=== PATIENT | female | born 1995 | race Caucasian/White ===

== ENCOUNTER 2018-05-05 18:47 | Emergency (ER) | payer OTHER, SELFPAY ==
[2018-05-05 18:48] VITALS: BP 147/94; PULSE 113; RESP 16; TEMP 36.9; O2SAT 100; BMI 31.8
--- NOTE | 2018-05-05 19:01 | ED.DCSUM_ITS ---
- ER Visit Summary Date of Service: 05/05/18 Chief Complaint: Breast pain History of Present Illness: The patient is a 23 F who developed breast pain yesterday. It got worse today. Fever was 100?F today. Hurts to touch. She did notice some redness. No history of mastitis in the past. Still breast- feeding at this time Physical Examination: Vital signs are reviewed. Right breast exam with nursing supervision shows tenderness palpation on the lateral breast with a small area of erythema. There is no abscess noted. No nipple drainage Test Results: None indicated Emergency Department Course and Treatment: Patient appears to have mastitis. I will treat her with Keflex at home. She will use warm compresses and will follow up with her PCP Treatment Plan: [] Disposition: Discharge Impression: mastitis This note was generated with [employer] dictation software. It may contain incorrect words, spelling, and punctuation that were not noted in review of the chart prior to signing ED Disposition - Plan for ED Patient: Chief Complaint: Other, Pain/Inj Referrals: Care Physician,No Primary [Primary Care Provider] -
--- NOTE | 2018-05-05 19:01 | ED.DEP ---
ED Disposition - Plan for ED Patient: Disposition: Home or Assisted Living Chief Complaint: Other, Pain/Inj Instructions: ED Breast Infec Prescriptions: Cephalexin [Keflex] 500 mg PO Q6 #40 cap Referrals: Care Physician,No Primary [Primary Care Provider] -
[2018-05-05] MEDS: Cephalexin 250 MG Capsule 500 MG PO (19:14)
== END 2018-05-05 19:21 | disposition home or self-care (01) ==
LOC: ED 19:17
PROVIDERS: Emergency Provider Emergency Medicine
DX: N61.0 Mastitis without abscess (principal)
CPT/HCPCS: 99283

== ENCOUNTER → 2018-10-17 13:38 | Outpatient (CLI) | payer OTHER, SELFPAY ==
[2018-10-17 15:56] LABS: HIV - WCH Non-Reactive (Nonreactive)
== END ==
PROVIDERS: Referring Provider Internal Medicine Infectious Disease; Visit Provider Internal Medicine Infectious Disease
DX: Z78.9 Other specified health status (principal)
CPT/HCPCS: 36415; 86703

== ENCOUNTER → 2019-02-04 10:57 | Outpatient (CLI) | payer OTHER, SELFPAY ==
[2019-02-04 10:23] VITALS: BMI 31.8
--- NOTE | 2019-02-04 11:22 | US_ITS ---
STUDY: ULTRASOUND OF THE FEMALE PELVIS - COMPLETE REASON FOR EXAM: Female, 23 years old. Endometrial thickness. LMP: January 27, 2019. TECHNIQUE: Transabdominal and Transvaginal TECHNICAL QUALITY: Adequate. COMPARISON: None. FINDINGS: The uterus is retroflexed and is tilted to the right side of the pelvis. The uterus measures 7.3 cm x 5.6 cm x 3.7 cm. Normal uterine cervix. The endometrium measures 8.0 mm in thickness, and is heterogeneous (striated). There is no demonstrated endometrial mass. There is no demonstrated myometrial mass. I.U.D. - The patient does not have an I.U.D. The right ovary is visualized. The right ovary measures 4.2 cm x 2.4 cm x 2.7 cm. A dominant follicle is seen within the ovary measuring 2 cm. There is no visualized right adnexal mass or complex lesion. There is normal arterial and normal venous vascularity. The left ovary is visualized. The left ovary measures 2.6 cm x 2.9 cm x 1.6 cm. Multiple follicles are seen. There is no visualized left adnexal mass or complex lesion. There is normal arterial and normal venous vascularity. There is no fluid in the cul-de-sac. The pre void volume of the bladder was 210 ml. Polycystic ovary disease: No. US/Transvaginal Non- IMPRESSION: Dominant follicle in the right ovary measuring 2 cm. Electronically Signed: Baldemar Braun, at 12:43 EDT , Service support ,
--- NOTE | 2019-02-04 11:22 | US_ITS ---
STUDY: ULTRASOUND OF THE FEMALE PELVIS - COMPLETE REASON FOR EXAM: Female, 23 years old. Endometrial thickness. LMP: January 27, 2019. TECHNIQUE: Transabdominal and Transvaginal TECHNICAL QUALITY: Adequate. COMPARISON: None. FINDINGS: The uterus is retroflexed and is tilted to the right side of the pelvis. The uterus measures 7.3 cm x 5.6 cm x 3.7 cm. Normal uterine cervix. The endometrium measures 8.0 mm in thickness, and is heterogeneous (striated). There is no demonstrated endometrial mass. There is no demonstrated myometrial mass. I.U.D. - The patient does not have an I.U.D. The right ovary is visualized. The right ovary measures 4.2 cm x 2.4 cm x 2.7 cm. A dominant follicle is seen within the ovary measuring 2 cm. There is no visualized right adnexal mass or complex lesion. There is normal arterial and normal venous vascularity. The left ovary is visualized. The left ovary measures 2.6 cm x 2.9 cm x 1.6 cm. Multiple follicles are seen. There is no visualized left adnexal mass or complex lesion. There is normal arterial and normal venous vascularity. There is no fluid in the cul-de-sac. The pre void volume of the bladder was 210 ml. Polycystic ovary disease: No. US/Pelvic (Non ) IMPRESSION: Dominant follicle in the right ovary measuring 2 cm. Electronically Signed: Baldemar Braun, at 12:43 EDT , Service support ,
[2019-02-04 11:42] LABS: Estradiol 231.7 pg/mL
[2019-02-07 16:27] LABS: HPV Reflexed? NOT INDICATED
== END ==
PROVIDERS: Family Provider Nurse Practitioner Primary Care; PCP Nurse Practitioner Primary Care; Referring Provider Nurse Practitioner Women's Health; Visit Provider Nurse Practitioner Women's Health
DX: Z12.4 Encounter for screening for malignant neoplasm of cervix (principal); R93.89 Abnormal findings on diagnostic imaging of other specified body structures; Z31.7 Encounter for procreative management and counseling for gestational carrier
CPT/HCPCS: 36415; 76830; 76856; 82670; 87624; 88175; 93976; G0145

== ENCOUNTER → 2019-02-05 13:26 | Outpatient (CLI) | payer OTHER, SELFPAY ==
[2019-02-04 10:23] VITALS: BMI 31.8
[2019-02-05 14:29] LABS: Progesterone Level 0.23 ng/mL (See Comment)
== END ==
PROVIDERS: Family Provider Nurse Practitioner Primary Care; PCP Nurse Practitioner Primary Care
DX: N97.9 Female infertility, unspecified (principal)
CPT/HCPCS: 36415; 84144

== ENCOUNTER → 2019-02-12 11:32 | Outpatient (CLI) | payer OTHER, SELFPAY ==
[2019-02-04 10:23] VITALS: BMI 31.8
--- NOTE | 2019-02-12 11:35 | US_ITS ---
STUDY: ULTRASOUND TRANSVAGINAL CLINICAL: Female, 23 years old. Endometrial thickness and pattern assessment TECHNIQUE: Transvaginal and transabdominal. (Transvaginal imaging performed for enhanced visualization of uterus and endometrium, and posterior adnexal structures). COMPARISON: None. FINDINGS: Anteverted uterus measures 9.8 x 5.2 x 3.7 cm, normal myometrial echotexture. Endometrial thickness is 11 mm, normal echotexture. Normal cervix. No free fluid. No adnexal mass or suspicious cyst. Right ovary 39 x 30 x 27 mm, normal vascularity, 28 mm sonographically simple appearing dominant follicle. Likely physiologic. Left ovary 30 x 18 x 17 mm, normal vascular flow, normal echotexture, small physiologic follicles. US/Transvaginal Non- IMPRESSION: Normal endometrium. 28 mm dominant simple appearing follicle right ovary, likely physiologic. Electronically Signed: Ze Nayak MD at 13:06 EDT Tel , Service support ,
--- NOTE | 2019-02-12 11:35 | US_ITS ---
STUDY: ULTRASOUND TRANSVAGINAL CLINICAL: Female, 23 years old. Endometrial thickness and pattern assessment TECHNIQUE: Transvaginal and transabdominal. (Transvaginal imaging performed for enhanced visualization of uterus and endometrium, and posterior adnexal structures). COMPARISON: None. FINDINGS: Anteverted uterus measures 9.8 x 5.2 x 3.7 cm, normal myometrial echotexture. Endometrial thickness is 11 mm, normal echotexture. Normal cervix. No free fluid. No adnexal mass or suspicious cyst. Right ovary 39 x 30 x 27 mm, normal vascularity, 28 mm sonographically simple appearing dominant follicle. Likely physiologic. Left ovary 30 x 18 x 17 mm, normal vascular flow, normal echotexture, small physiologic follicles. US/Pelvic (Non ) IMPRESSION: Normal endometrium. 28 mm dominant simple appearing follicle right ovary, likely physiologic. Electronically Signed: Ze Nayak MD at 13:06 EDT Tel , Service support ,
[2019-02-12 13:22] LABS: Estradiol 704.4 pg/mL
== END ==
LOC: US 11:34 → PAVLAB 12:28
PROVIDERS: Family Provider Nurse Practitioner Primary Care; PCP Nurse Practitioner Primary Care; Referring Provider Nurse Practitioner Women's Health; Visit Provider Nurse Practitioner Women's Health
DX: N97.9 Female infertility, unspecified (principal); Z31.7 Encounter for procreative management and counseling for gestational carrier
CPT/HCPCS: 36415; 76830; 76856; 82670; 84144; 93976

== ENCOUNTER → 2019-02-14 11:17 | Outpatient (CLI) | payer OTHER, SELFPAY ==
[2019-02-04 10:23] VITALS: BMI 31.8
[2019-02-14 11:54] LABS: Estradiol 387.2 pg/mL; Luteinizing Hormone 0.4 mIU/mL
[2019-02-14 12:01] LABS: Progesterone Level 0.25 ng/mL (See Comment)
== END ==
PROVIDERS: Family Provider Nurse Practitioner Primary Care; PCP Nurse Practitioner Primary Care
DX: N97.9 Female infertility, unspecified (principal)
CPT/HCPCS: 36415; 82670; 83002; 84144

== ENCOUNTER → 2019-02-15 11:48 | Outpatient (CLI) | payer OTHER, SELFPAY ==
[2019-02-04 10:23] VITALS: BMI 31.8
[2019-02-15 13:21] LABS: Progesterone Level 12.26 ng/mL (See Comment)
== END ==
PROVIDERS: Nurse Practitioner Women's Health; Family Provider Nurse Practitioner Primary Care; PCP Nurse Practitioner Primary Care
DX: N97.9 Female infertility, unspecified (principal)
CPT/HCPCS: 36415; 84144

== ENCOUNTER → 2019-02-28 11:38 | Outpatient (CLI) | payer OTHER, SELFPAY ==
[2019-02-04 10:23] VITALS: BMI 31.8
[2019-02-28 12:13] LABS: Estradiol 1406.2 pg/mL
[2019-02-28 12:26] LABS: hCG Titer Quant., Serum 50 mIU/mL (1-3)
[2019-02-28 12:33] LABS: Progesterone Level 14.85 ng/mL (See Comment)
== END ==
PROVIDERS: Family Provider Nurse Practitioner Primary Care; PCP Nurse Practitioner Primary Care
DX: Z32.00 Encounter for pregnancy test, result unknown (principal)
CPT/HCPCS: 36415; 82670; 84144; 84702

== ENCOUNTER → 2019-03-02 07:29 | Outpatient (CLI) | payer OTHER, SELFPAY ==
[2019-02-04 10:23] VITALS: BMI 31.8
[2019-03-02 08:19] LABS: Thyroid Stim Hormone (TSH) 3.36 uIU/mL (0.358-3.74)
[2019-03-02 08:26] LABS: hCG Titer Quant., Serum 104 mIU/mL (1-3)
[2019-03-02 08:27] LABS: Progesterone Level 16.07 ng/mL (See Comment)
== END ==
PROVIDERS: Family Provider Nurse Practitioner Primary Care; PCP Nurse Practitioner Primary Care
DX: Z13.29 Encounter for screening for other suspected endocrine disorder (principal)
CPT/HCPCS: 36415; 84144; 84443; 84702

== ENCOUNTER → 2019-03-04 06:46 | Outpatient (CLI) | payer OTHER, SELFPAY ==
[2019-02-04 10:23] VITALS: BMI 31.8
[2019-03-04 08:25] LABS: hCG Titer Quant., Serum 283 mIU/mL (1-3)
== END ==
PROVIDERS: Family Provider Nurse Practitioner Primary Care; PCP Nurse Practitioner Primary Care
DX: O09.811 Supervision of pregnancy resulting from assisted reproductive technology, first trimester (principal); Z3A.00 Weeks of gestation of pregnancy not specified
CPT/HCPCS: 36415; 84702

== ENCOUNTER 2019-03-10 21:46 | Emergency (ER) | payer OTHER, SELFPAY ==
[2019-02-04 10:23] VITALS: BMI 31.8
[2019-03-10 21:47] VITALS: BP 162/95; PULSE 79; RESP 16; TEMP 36.8; O2SAT 100; BMI 28.3
--- NOTE | 2019-03-10 22:35 | ED.VISSUMM ---
- ER Visit Summary Date of Service: 03/10/19 Chief Complaint: Left index finger laceration History of Present Illness: The patient is a 24 F who presents with a laceration to her left index finger that occurred tonight. Patient states she was cutting watermelon when she accidentally cut her left index finger. Patient is right-hand dominant. Patient states the bleeding is been persistent. Patient admits to some mild dull pain in the area. Patient states this is worse with palpation. She denies any paresthesias or weakness. Patient is unsure of her last tetanus. Physical Examination: Vital signs are stable. Patient is afebrile. Patient is in no acute distress. Skin is warm dry. There is a 2 cm full-thickness V-shaped laceration over the dorsal aspect of the left index finger. There is some mild bleeding noted. There is mild gapping of the wound margins. There are no foreign bodies noted. Sensation was intact light touch in all digits. Capillary refill is less than 2 seconds in all digits. Strength is 5/5 in extension of the MP, PIP, and DIP joints of the left index finger. Emergency Department Course and Treatment: Left index finger was cleaned and irrigated with copious amounts of normal saline. The left index finger was anesthetized 1% plain lidocaine via digital block. The wound was explored. There are no tendon lacerations noted. There are no foreign bodies noted. Laceration was closed with 2 simple interrupted #5-0 nylon sutures under sterile technique. Bacitracin dressing was applied. Patient tolerated the procedure well. Disposition: Discharge home Impression: Left index finger laceration This note was generated with [employer] dictation software. It may contain incorrect words, spelling, and punctuation that were not noted in review of the chart prior to signing ED Disposition - Plan for ED Patient: Disposition: Home or Assisted Living Diagnosis: Laceration of left index finger w/o foreign body w/o damage to nail Instructions: ED Laceration Hand Referrals: Micheline Schaefer NP-C [Primary Care Provider] - 7 Days for suture removal
--- NOTE | 2019-03-10 22:39 | ED.DCSUM_ITS ---
- ER Visit Summary Date of Service: 03/10/19 Chief Complaint: Left index finger laceration History of Present Illness: The patient is a 24 F who presents with a laceration to her left index finger that occurred tonight. Patient states she was cutting watermelon when she accidentally cut her left index finger. Patient is right- hand dominant. Patient states the bleeding is been persistent. Patient admits to some mild dull pain in the area. Patient states this is worse with palpation. She denies any paresthesias or weakness. Patient is unsure of her last tetanus. Physical Examination: Vital signs are stable. Patient is afebrile. Patient is in no acute distress. Skin is warm dry. There is a 2 cm full-thickness V- shaped laceration over the dorsal aspect of the left index finger. There is some mild bleeding noted. There is mild gapping of the wound margins. There ar e no foreign bodies noted. Sensation was intact light touch in all digits. Capillary refill is less than 2 seconds in all digits. Strength is 5/5 in extension of the MP, PIP, and DIP joints of the left index finger. Emergency Department Course and Treatment: Left index finger was cleaned and irrigated with copious amounts of normal saline. The left index finger was anesthetized 1% plain lidocaine via digital block. The wound was explored. There are no tendon lacerations noted. There are no foreign bodies noted. Laceration was closed with 2 simple interrupted #5-0 nylon sutures under sterile technique. Bacitracin dressing was applied. Patient tolerated the procedure well. Disposition: Discharge home Impression: Left index finger laceration This note was generated with [employer] dictation software. It may contain incorrect words, spelling, and punctuation that were not noted in review of the chart prior to signing ED Disposition - Plan for ED Patient: Disposition: Home or Assisted Living Diagnosis: Laceration of left index finger w/o foreign body w/o damage to nail Instructions: ED Laceration Hand Referrals: Micheline Schaefer NP-C [Primary Care Provider] - 7 Days for suture removal
[2019-03-10] MEDS: Diphth,Pertuss(Acell),Tet Vac 0.5 ML Vial IM (23:39)
[2019-03-10] MEDS: BACITRACIN 15 GM Tube 1 APPLIC TOPICAL (23:41)
[2019-03-11 00:18] VITALS: BP 148/60; PULSE 72; RESP 18
== END 2019-03-11 00:19 | disposition home or self-care (01) ==
PROVIDERS: Emergency Provider Emergency Medicine; Family Provider Nurse Practitioner Primary Care; PCP Nurse Practitioner Primary Care
DX: S61.211A Laceration without foreign body of left index finger without damage to nail, initial encounter (principal); W45.8XXA Other foreign body or object entering through skin, initial encounter; Y93.89 Activity, other specified; Y92.9 Unspecified place or not applicable; Y99.9 Unspecified external cause status; Z23 Encounter for immunization; Z79.82 Long term (current) use of aspirin; Z79.3 Long term (current) use of hormonal contraceptives; Z79.899 Other long term (current) drug therapy
CPT/HCPCS: 12001; 90471; 90715; 99284

== ENCOUNTER → 2019-03-19 12:46 | Outpatient (CLI) | payer OTHER, SELFPAY ==
[2019-02-04 10:23] VITALS: BMI 31.8
[2019-03-10 21:47] VITALS: BMI 28.3
--- NOTE | 2019-03-19 12:49 | US_ITS ---
STUDY: FIRST TRIMESTER OBSTETRICAL ULTRASOUND REASON FOR EXAM: Female, 24 years old. viability. LMP: January 27, 2019. TECHNIQUE: Transvaginal TECHNICAL QUALITY: Adequate. PRIOR ULTRASOUND: None. FINDINGS: There is visualization of a single gestational sac in a normal intrauterine position. The mean sac diameter (MSD) measures 1.32 cm, indicating an estimated gestational age (EGA) of 6 weeks, 1 days. The gestational sac shape is within normal limits. Adjacent to the gestational sac, there is a 8 mm x 9 mm x 6 mm round anechoic area. This may represent a second gestational sac or blighted ovum. There is a visualized yolk sac. The yolk sac measures 4.1 mm. The placenta is non-visualized. There is visualization of a live embryo. The crown-rump length (CRL) measures 4.7 mm, indicating an estimated gestational age (EGA) of 6 weeks, 2 days. There is demonstrated cardiac activity with a heart rate of 126 bpm. The estimated gestation age (EGA) by LMP is 7 weeks, 2 days. The estimated date of delivery (GLENN) by LMP is November 03, 2019. The estimated gestation age (EGA) by US is 6 weeks, 2 days. The estimated date of delivery (GLENN) by US is 2019. The uterus measures 7.1 cm x 5.9 cm x 4.9 cm. There is no demonstrated uterine fibroid. The cervix is closed. The right ovary measures 3.2 cm x 1.9 cm x 1.1 cm. There is no right ovarian cyst. There is no visualized right adnexal mass or complex lesion. The left ovary measures 1.9 cm x 1.4 cm x 1.4 cm. There is no left ovarian cyst. There is no visualized left adnexal mass or complex lesion. There is no fluid in the cul de sac. US/Init OB < 14Wks US IMPRESSION: Single live intrauterine gestation with a mean gestational age of 6 weeks and 2 days. 8 mm x 9 mm x 6 mm anechoic rounded density adjacent to the gestational sac. This may represent a blighted ovum. Electronically Signed: Baldemar Braun, at 15:47 EDT , Service support ,
[2019-03-19 14:13] LABS: Estradiol 810.9 pg/mL
[2019-03-19 14:42] LABS: Progesterone Level 34.19 ng/mL (See Comment)
== END ==
LOC: OPUS 12:55 → PAVLAB 13:42
PROVIDERS: Family Provider Nurse Practitioner Primary Care; PCP Nurse Practitioner Primary Care; Visit Provider Nurse Practitioner Women's Health
DX: O09.811 Supervision of pregnancy resulting from assisted reproductive technology, first trimester (principal); Z3A.00 Weeks of gestation of pregnancy not specified
CPT/HCPCS: 36415; 76801; 82670; 84144

== ENCOUNTER → 2019-03-26 13:54 | Outpatient (CLI) | payer OTHER, SELFPAY ==
[2019-03-10 21:47] VITALS: BMI 28.3
--- NOTE | 2019-03-26 13:56 | US_ITS ---
STUDY: FIRST TRIMESTER OBSTETRICAL ULTRASOUND REASON FOR EXAM: Female, 24 years old. Surrogate . 1 egg implanted. LMP: 01/27/2019. TECHNIQUE: Transvaginal. TECHNICAL QUALITY: Adequate. PRIOR ULTRASOUND: March 19, 2019. FINDINGS: There is visualization of a single gestational sac in a normal intrauterine position. The mean sac diameter (MSD) measures 2.1 cm, indicating an estimated gestational age (EGA) of 7 weeks, 1 days. The gestational sac shape is within normal limits. There is a visualized yolk sac. The yolk sac measures 4 mm. The placenta is non-visualized. Adjacent to the gestational sac is a 1.5 x 1.5 x 0.6 cm is an anechoic structure suggestive of a blighted ovum noted previously. Subchorionic hematoma measuring 1.4 x 0.8 x 0.4 cm. There is visualization of a live embryo. The crown-rump length (CRL) measures 1.0 cm, indicating an estimated gestational age (EGA) of 7 weeks, 1 days. There is demonstrated cardiac activity with a heart rate of 157 bpm. The estimated gestation age (EGA) by LMP is 8 weeks, 2 days. The estimated date of delivery (GLENN) by LMP is 11/03/2019.. The estimated gestation age (EGA) by US is 7 weeks, 1 days. The estimated date of delivery (GLENN) by US is 11/11/2019.. The uterus measures 8.6 x 5.5 cm. There is no demonstrated uterine fibroid. The cervix is closed. The right ovary measures 3.0 x 2.1 x 1.7 cm. Ovarian simple cyst measuring 1.3 x 1.2 x 1.1 cm There is no visualized right adnexal mass or complex lesion. The left ovary measures 3.1 x 2.2 x 1.2 cm. There is no left ovarian cyst. There is no visualized left adnexal mass or complex lesion. There is minimal free fluid within the cul-de-sac. US/OB Limited With Biometrics IMPRESSION: Single living intrauterine gestation with an estimated gestational age by ultrasound 7 weeks 1 day. Estimated date of delivery 11/11/2019. Subchorionic hemorrhage. Probable blighted ovum noted previously. Right ovarian corpus luteum cyst. Electronically Signed: Keon iFtzgerald MD at 5:32 EDT , Service support ,
== END ==
PROVIDERS: Family Provider Nurse Practitioner Primary Care; PCP Nurse Practitioner Primary Care; Referring Provider Nurse Practitioner Women's Health; Visit Provider Nurse Practitioner Women's Health
DX: Z33.3 Pregnant state, gestational carrier (principal)
CPT/HCPCS: 76816

== ENCOUNTER → 2019-04-02 12:50 | Outpatient (CLI) | payer OTHER, SELFPAY ==
[2019-03-10 21:47] VITALS: BMI 28.3
[2019-04-02 13:43] LABS: Estradiol 1295.8 pg/mL; Thyroid Stim Hormone (TSH) 1.31 uIU/mL (0.358-3.74)
[2019-04-02 14:06] LABS: Progesterone Level 28.41 ng/mL (See Comment)
== END ==
PROVIDERS: Family Provider Nurse Practitioner Primary Care; PCP Nurse Practitioner Primary Care
DX: O09.811 Supervision of pregnancy resulting from assisted reproductive technology, first trimester (principal); Z3A.00 Weeks of gestation of pregnancy not specified
CPT/HCPCS: 36415; 82670; 84144; 84443

== ENCOUNTER → 2019-04-08 12:26 | Outpatient (CLI) | payer OTHER, SELFPAY ==
[2019-02-04 10:23] VITALS: BMI 31.8
[2019-03-10 21:47] VITALS: BMI 28.3
--- NOTE | 2019-04-08 12:28 | US_ITS ---
STUDY: FIRST TRIMESTER OBSTETRICAL ULTRASOUND REASON FOR EXAM: Female, 24 years old. Follow-up examination. LMP: January 27, 2019. TECHNIQUE: Transvaginal TECHNICAL QUALITY: Adequate. PRIOR ULTRASOUND: Comparison is made with prior study dated March 26, 2019 and March 19, 2019. FINDINGS: There is visualization of a single gestational sac in a normal intrauterine position. The mean sac diameter (MSD) measures 3.01 cm, indicating an estimated gestational age (EGA) of 8 weeks, 2 days. The gestational sac shape is within normal limits. There is a visualized yolk sac. The yolk sac measures 3.7 mm. The placenta is non-visualized. Anechoic structure is seen adjacent to the gestational sac. This measures 2.9 sinus by 2.4 size by 1 cm. This may represent an aborted twin gestation. Is also evidence of a 2.2 cm x 1.4 cm x 0.7 cm subchorionic bleed. There is visualization of a live embryo. The crown-rump length (CRL) measures 2.66 cm, indicating an estimated gestational age (EGA) of 9 weeks, 4 days. There is demonstrated cardiac activity with a heart rate of 160 bpm. The estimated gestation age (EGA) by LMP is 10 weeks, 1 days. The estimated date of delivery (GLENN) by LMP is November 03, 2019.. The estimated gestation age (EGA) by US is 9 weeks, 0 days. The estimated date of delivery (GLENN) by US is November 11, 2019. The uterus measures 9.3 cm x 6.6 cm by 6 cm. There is no demonstrated uterine fibroid. The cervix is closed. The right ovary measures 3.6 cm x 2.2 cm x 2.2 cm.. There is no right ovarian cyst. There is no visualized right adnexal mass or complex lesion. The left ovary measures 3.1 cm x 2.2 cm x 1.6 cm.. There is no left ovarian cyst. There is no visualized left adnexal mass or complex lesion. There is no fluid in the cul de sac. US/Init OB < 14Wks US IMPRESSION: Single live intrauterine gestation with a mean gestational age of 9 weeks. Small subchorionic bleed. 2.9 cm x 2.4 cm x 1 cm anechoic structure adjacent to the gestational sac as described. Electronically Signed: Baldemar Braun, at 14:35 EDT , Service support ,
== END ==
PROVIDERS: Family Provider Nurse Practitioner Primary Care; PCP Nurse Practitioner Primary Care; Referring Provider Nurse Practitioner Women's Health; Visit Provider Nurse Practitioner Women's Health
DX: Z33.3 Pregnant state, gestational carrier (principal)
CPT/HCPCS: 76801

== ENCOUNTER → 2019-04-30 15:39 | Outpatient (CLI) | payer OTHER, SELFPAY ==
[2019-04-30 15:22] VITALS: BMI 28.3
[2019-04-30 16:31] LABS: Absolute Lymphocyte Count 1.71 X10^3/ul (0.83-4.51); Absolute Neutrophil Count 8.1 X10^3/uL (2.0-7.7); Basophil# 0.02 X10^3/uL; Basophil% 0.2 % (0-1); Eosinophil# 0.76 X10^3/uL; Eosinophils% 6.7 % (0-5); Hematocrit 38.1 % (37-47); Hemoglobin 13.5 g/dl (12.0-15.0); Lymphocyte # 1.71 X10^3/ul (4.0); Lymphocyte % 15.2 % (19-41); Mean Corp Hgb Conc 35.4 g/gl (32-36); Mean Corpuscular Hgb 31.7 pg (27.0-32.0); Mean Corpuscular Volume 89.4 fL (81-99); Mean Platelet Vol. 9.3 fl (6.2-12.0); Monocyte# 0.63 X10^3/uL; Monocyte% 5.6 % (0-10); Neutrophil # 8.13 X10^3/uL (2.7-7.7); Neutrophil % 72.1 % (47-70); Platelet Count 264 K/mm3 (150-450); RBC Distribution Width CV 12.2 % (11.6-14.6); RBC Distribution Width SD 38.7 fl (35.1-43.9); Red Blood Count 4.26 M/mm3 (4.2-5.4); White Blood Count 11.3 K/mm3 (4.4-11.0)
[2019-04-30 16:32] LABS: POSITIVE COUNT NO; POSITIVE DIFFERENTIAL NO; POSITIVE MORPHOLOGY NO
[2019-04-30 16:49] LABS: Glucose Challenge Gest 1H 50g 103 mg/dL (70-140)
[2019-04-30 17:48] LABS: HIV - WCH Non-Reactive (Nonreactive); Rubella IgG 84.5 IU/mL
[2019-05-03 02:57] LABS: Rapid Plasmin Reagin (RPR) NONREACTIVE (NONREACTIVE)
== END ==
PROVIDERS: Family Provider Nurse Practitioner Primary Care; PCP Nurse Practitioner Primary Care; Referring Provider Nurse Practitioner Women's Health; Visit Provider Nurse Practitioner Women's Health
DX: Z34.90 Encounter for supervision of normal pregnancy, unspecified, unspecified trimester (principal)
CPT/HCPCS: 36415; 82950; 85025; 86592; 86703; 86762; 86850; 86900; 87086; 87088

== ENCOUNTER → 2019-05-27 14:23 | Outpatient (CLI) | payer OTHER, SELFPAY ==
[2019-05-27 14:18] VITALS: BMI 28.3
[2019-05-27 15:57] LABS: Thyroid Stim Hormone (TSH) 0.76 uIU/mL (0.358-3.74)
== END ==
PROVIDERS: Nurse Practitioner Women's Health; Family Provider Nurse Practitioner Primary Care; PCP Nurse Practitioner Primary Care; Referring Provider Obstetrics & Gynecology; Visit Provider Obstetrics & Gynecology
DX: E03.9 Hypothyroidism, unspecified (principal)
CPT/HCPCS: 36415; 84443

== ENCOUNTER → 2019-08-20 | Outpatient (CLI) | payer OTHER, SELFPAY ==
[2019-08-20 09:51] VITALS: BMI 28.3
[2019-08-20 11:01] LABS: Absolute Neutrophil Count 9.7 X10^3/uL (2.0-7.7); Basophil# 0.02 X10^3/uL; Basophil% 0.2 % (0-1); Eosinophil# 0.26 X10^3/uL; Eosinophils% 2.2 % (0-5); Hematocrit 31.2 % (37-47); Hemoglobin 10.8 g/dL (12.0-15.0); Lymphocyte % 11.6 % (19-41); Mean Corp Hgb Conc 34.6 g/dL (32-36); Mean Corpuscular Hgb 33.1 pg (27.0-32.0); Mean Corpuscular Volume 95.7 fL (81-99); Monocyte# 0.56 X10^3/uL; Monocyte% 4.7 % (0-10); NRBC Flagged by Analyzer 0 % (0-5); Neutrophil # 9.69 X10^3/uL (2.7-7.7); Neutrophil % 80.6 % (47-70); Platelet Count 214 K/mm3 (150-450); RBC Distribution Width CV 13.1 % (11.6-14.6); RBC Distribution Width SD 45.4 fl (35.1-43.9); Red Blood Count 3.26 M/mm3 (4.2-5.4)
[2019-08-20 11:10] LABS: Glucose Challenge Gest 1H 50g 95 mg/dL (70-140)
== END | disposition home or self-care (01) ==
LOC: PAVLAB 10:47
PROVIDERS: Family Provider Nurse Practitioner Primary Care; PCP Nurse Practitioner Primary Care; Referring Provider Nurse Practitioner Women's Health; Visit Provider Nurse Practitioner Women's Health
DX: Z34.80 Encounter for supervision of other normal pregnancy, unspecified trimester (principal)
CPT/HCPCS: 36415; 82950; 85025; 86850; 86900; 86901

== ENCOUNTER → 2019-10-18 13:36 | Outpatient (CLI) | payer OTHER, SELFPAY ==
[2019-10-18 09:16] VITALS: BMI 28.3
== END ==
PROVIDERS: Family Provider Nurse Practitioner Primary Care; PCP Nurse Practitioner Primary Care; Referring Provider Obstetrics & Gynecology; Visit Provider Obstetrics & Gynecology
DX: Z34.80 Encounter for supervision of other normal pregnancy, unspecified trimester (principal)
CPT/HCPCS: 87081

== ENCOUNTER 2019-10-24 16:00 | Outpatient (CLI) | payer OTHER, SELFPAY ==
[2019-10-18 09:16] VITALS: BMI 28.3
[2019-10-24 16:12] VITALS: BMI 32.2
--- NOTE | 2019-10-25 09:23 | OB.TRI.PN_ITS ---
Progress Notes Date of Service: 10/24/19 Progress Note: nst secondary to high risk , IVF, surrogate and embryo AMA. 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 Recheck CBC at 36 weeks (3) Encounter for procreative management and counseling for person acting as gestational surrogate Status: Acute Comment: patient is surrogate, Surrogate parents Sarah(cell#[phone]) and Murphy-live in [place],have had 2 losses due to genetic deletion. (4) Genetic defect Status: Acute Comment: maternal embryo age-40, recommend weekly nsts until delivery, delivery at 39-40 weeks biological parents of fetus with history of child with genetic deletion- nl amniocentesis (5) Status: Acute Qualifiers: Comment: genetic screening nl. afp screen neg. anatomy us- echo repeat @ 25 wks . Growth US normal, growth US every 4 weeks with MFM (6) Rh negative status during Status: Acute Qualifiers: Comment: rhogam at 28 weeks and prn bleeding (7) Supervision of other normal Status: Acute Comment: PRR GLENN 11/11/19 patient has two sons- Serge and Rob - Mir [facility] [employer] Codes - Urinary/Genital Urinary/Genital CPT Codes: 24770-56 non-stress test Interp
== END 2019-10-24 16:37 | disposition home or self-care (01) ==
LOC: WPOUT 16:06 → WP 16:07
PROVIDERS: Family Provider Nurse Practitioner Primary Care; PCP Nurse Practitioner Primary Care; Referring Provider Obstetrics & Gynecology; Visit Provider Obstetrics & Gynecology
DX: O09.90 Supervision of high risk pregnancy, unspecified, unspecified trimester (principal); O36.8390 Maternal care for abnormalities of the fetal heart rate or rhythm, unspecified trimester, not applicable or unspecified; O99.019 Anemia complicating pregnancy, unspecified trimester; D64.9 Anemia, unspecified; O36.0130 Maternal care for anti-D [Rh] antibodies, third trimester, not applicable or unspecified; Z31.7 Encounter for procreative management and counseling for gestational carrier; Z3A.00 Weeks of gestation of pregnancy not specified
CPT/HCPCS: 59025

== ENCOUNTER → 2019-10-31 14:19 | Outpatient (CLI) | payer OTHER, SELFPAY ==
[2019-10-31 13:24] VITALS: BMI 32.2
[2019-10-31 15:11] LABS: Absolute Neutrophil Count 8.7 X10^3/uL (2.0-7.7); Basophil# 0.03 X10^3/uL; Basophil% 0.3 % (0-1); Eosinophil# 0.18 X10^3/uL; Eosinophils% 1.6 % (0-5); Hematocrit 32.8 % (37-47); Hemoglobin 11.3 g/dL (12.0-15.0); Lymphocyte % 13.2 % (19-41); Mean Corp Hgb Conc 34.5 g/dL (32-36); Mean Corpuscular Hgb 33.4 pg (27.0-32.0); Mean Platelet Vol. 9.5 fl (6.2-12.0); Monocyte# 0.85 X10^3/uL; Monocyte% 7.5 % (0-10); NRBC Flagged by Analyzer 0 % (0-5); Neutrophil # 8.67 X10^3/uL (2.7-7.7); Neutrophil % 76.5 % (47-70); Platelet Count 238 K/mm3 (150-450); RBC Distribution Width CV 14.4 % (11.6-14.6); RBC Distribution Width SD 48.9 fl (35.1-43.9); Red Blood Count 3.38 M/mm3 (4.2-5.4); White Blood Count 11.3 K/mm3 (4.4-11.0)
[2019-10-31 15:35] LABS: T4 Free Direct 0.82 ng/dL (0.76-1.46); Thyroid Stim Hormone (TSH) 0.57 uIU/mL (0.358-3.74)
== END ==
PROVIDERS: Family Provider Nurse Practitioner Primary Care; PCP Nurse Practitioner Primary Care; Referring Provider Nurse Practitioner Women's Health; Visit Provider Nurse Practitioner Women's Health
DX: O99.019 Anemia complicating pregnancy, unspecified trimester (principal); O99.280 Endocrine, nutritional and metabolic diseases complicating pregnancy, unspecified trimester; E03.9 Hypothyroidism, unspecified; Z3A.00 Weeks of gestation of pregnancy not specified
CPT/HCPCS: 36415; 84439; 84443; 85025

== ENCOUNTER → 2019-11-07 18:12 | Outpatient (CLI) | payer OTHER, SELFPAY ==
[2019-11-07 09:13] VITALS: BMI 32.2
--- NOTE | 2019-11-07 18:12 | US_ITS ---
STUDY: SECOND AND THIRD TRIMESTER OBSTETRICAL ULTRASOUND REASON FOR EXAM: Female, 24 years old. Growth. LMP: January 27, 2019. TECHNIQUE: Transabdominal TECHNICAL QUALITY: Adequate. PRIOR ULTRASOUND: April 08, 2019, March 26, 2019 and March 19, 2019. FINDINGS: There is a single intrauterine fetus. The fetus is in a cephalic presentation. There is demonstrated cardiac activity with a heart rate of 147 bpm. There is a normal amniotic fluid volume. The largest amniotic fluid pocket measures 4.91 cm. The amniotic fluid index (JOSS) is 8.77 cm. The placenta is anterior in location and is not low lying. There are Grade 3 placental changes. The cervix is obscured. BIOMETRY: BPD: 9.02 cm: 36 weeks, 4 days HC: 33.65 cm: 38 weeks, 4 days AC: 35.58 cm: 39 weeks, 4 days FL: 7.55 cm: 38 weeks, 5 days CI: 82 FL/BPD: 84 FL/HC: FL/AC: 21 HC/AC: 0.95 age by current US: 38 weeks, 3 days. GLENN by current US: November 18, 2019. Estimated weight: 3598 grams, +/- 525 grams, 57 %. age by prior US: 39 weeks, 4 days. GLENN by prior US: November 10, 2019. Age by LMP: 40 weeks, 4 days. GLENN by LMP: November 03, 2019. US/OB Limited With Biometrics IMPRESSION: 1. Live single intrauterine at 38 weeks, 3 days. GLENN is November 18, 2019. This is approximately one week behind expected gestational age by initial ultrasound. 2. EFW of 3598 g. 3. JOSS of 8.77 cm. 4. Anterior grade 3 placenta. 5. Vertex presentation. A preliminary report was given to the ordering physician Abby Cash by the insulation helper following completion of the exam. Electronically Signed: Jatin Alexander DO at 19:31 EST Tel [phone], Service support ,
== END ==
PROVIDERS: PCP Nurse Practitioner Primary Care; Referring Provider Obstetrics & Gynecology; Visit Provider Obstetrics & Gynecology
DX: O28.5 Abnormal chromosomal and genetic finding on antenatal screening of mother (principal); Z3A.38 38 weeks gestation of pregnancy
CPT/HCPCS: 76816

== ENCOUNTER 2019-11-08 09:35 | Inpatient (IN) | payer OTHER, SELFPAY ==
[2019-11-08 09:26] VITALS: BMI 32.2
[2019-11-08] MEDS: Lactated Ringers 1,000 ML 200 ML IV (09:50)
[2019-11-08 09:55] VITALS: BMI 32.2
[2019-11-08 10:28] LABS: Absolute Lymphocyte Count 1.35 X10^3/uL (0.83-4.51); Absolute Neutrophil Count 11.6 X10^3/uL (2.0-7.7); Basophil# 0.02 X10^3/uL; Basophil% 0.1 % (0-1); Eosinophils% 1.4 % (0-5); Hematocrit 34.9 % (37-47); Hemoglobin 12.2 g/dL (12.0-15.0); Lymphocyte # 1.35 X10^3/ul (4.0); Lymphocyte % 9.7 % (19-41); Mean Corpuscular Hgb 33.5 pg (27.0-32.0); Mean Corpuscular Volume 95.9 fL (81-99); Mean Platelet Vol. 9.7 fl (6.2-12.0); Monocyte# 0.63 X10^3/uL; Monocyte% 4.5 % (0-10); NRBC Flagged by Analyzer 0 % (0-5); Neutrophil # 11.64 X10^3/uL (2.7-7.7); Neutrophil % 83.6 % (47-70); Platelet Count 201 K/mm3 (150-450); RBC Distribution Width SD 48.5 fl (35.1-43.9); Red Blood Count 3.64 M/mm3 (4.2-5.4); White Blood Count 13.9 K/mm3 (4.4-11.0)
--- NOTE | 2019-11-08 10:51 | CASEMGMT ---
Social Work Labor and Delivery Unit This comic book writer apprised by unit clinical interactive account manager Nuvia Mccarthy of patient's arrival to the unit and in active labor. Due date is 11.11.2019. This comic book writer is aware of this patient initially from the intended/genetic parents of the baby that patient is carrying. Patient is the gestational surrogate for another couple. This comic book writer received a copy of the court order, a prebirth order, identifying this patient as the surrogate and gestational carrier of the baby the baby. Court order identifies another couple as the legal parents of the baby to be delivered by this patient. Copy of order being placed on this patient's chart as will be needed to assist with certificate indicating that gentic parents as the legal parents of the baby. Court order orders the hospital to identify the gentic parents as the parents on baby's certificate. Plan: Social work to follow and assist as needs arise for this family Provide support as needed. -SHERRIE Hendrix, FUR GRADER
[2019-11-08] MEDS: Ondansetron 4 MG/2 ML Vial IV (11:13)
[2019-11-08 12:10] LABS: Hepatitis B Surface Antigen Non-Reactive (Nonreactive)
--- NOTE | 2019-11-08 12:17 | PLAC_PTH ---
PATIENT: ELMER BUENROSTRO LOC: [facility] U#:[id number] AGE/SX: 24/F ROOM: WP019 RE11/08/[address]: Dr. 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 - A focal area of peripheral infarction (1.3 cm in greatest dimension). Membranes - no pathologic diagnosis. Umbilical cord - three blood vessels and no pathologic diagnosis. SJ:narendra 11/12/19 MICROSCOPIC DESCRIPTION Slides are reviewed. GROSS DESCRIPTION SPECIMEN: PLACENTA / CLINICAL INFORMATION: A. Weight: 3.269 kg B. Gestational Age: 39 weeks C. Sex: Female The specimen consists of placenta in four fragments. A fragment of placenta has attached membranes and umbilical cord that is attached to the membranes. PLACENTAL WEIGHT (POST FIXATION): 400 gm PLACENTAL DIMENSIONS: The placenta is received in four fragments ranging in size from 4 to 14 cm. PLACENTAL SHAPE: Usual ovoid PLACENTAL WEIGHT FOR GESTATIONAL AGE: Within 10-99th percentile MEMBRANES - Present A. Insertion: marginal B. Site of rupture from edge: At edge of placental disc C. Color of membrane: Schmidt-saleh D. Abnormalities: None UMBILICAL CORD - Present A. Color: Schmidt-saleh B. Insertion: velamentous insertion C. Length: 37 cm D. Diameter: 1.2 cm E. Number of vessels: Three F. Abnormalities: None PLACENTAL DISC - Present A. Color of surface: Schmidt-saleh B. surface abnormalities: None C. Maternal cotyledons: Intact with minimal tears D. Attached retro placental clot: No clot E. Cut surface: Dark red and spongy F. Lesions: Serial sections reveal firm, plaque-like, schmidt-white lesion at the periphery of the placental disc measuring 1.3 x 0.8 x 0.5 cm. G. Separate clot: 7 x 4.5 x 1 cm SECTIONS SUBMITTED: 1. Umbilical cord ( end notched) 2. Membrane roll 3. Placental disc, and maternal surfaces, lesion 4. Placental disc, and maternal surfaces 5. Placental disc, and maternal surfaces AM:narendra 11/11/19 TC:5 CPT: 21446
[2019-11-08] MEDS: Oxytocin 30 units/NS 500 ml 30 UNITS/500 ML IV.SOLN 334 UNITS IV (12:26)
[2019-11-08] MEDS: fentaNYL 100 MCG/2 ML Ampul IV (12:37)
--- NOTE | 2019-11-08 13:10 | NURSING ---
This information is obtained from surrogate.
--- NOTE | 2019-11-08 13:16 | NURSING ---
This information obtained from surrogate.
--- NOTE | 2019-11-08 13:57 | NURSING ---
This information obtained from biological parents.
--- NOTE | 2019-11-08 14:02 | NURSING ---
This information obtained from biological parents.
[2019-11-08 14:25] VITALS: BP 146/96; PULSE 88; RESP 18; TEMP 36.7; O2SAT 99
--- NOTE | 2019-11-08 14:53 | HP.PCM_ITS ---
- Problem List (1) Active labor at term Status: Acute (2) Hypothyroid in , antepartum Status: Acute (3) Anemia affecting Status: Acute Qualifiers: Comment: Start iron. 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 afp screen neg. anatomy us- echo repeat @ 25 wks . Growth US normal, growth US every 4 weeks with MFM (6) Rh negative status during Status: Acute Qualifiers: Comment: rhogam at 28 weeks and prn bleeding (7) Supervision of other normal Status: Acute Comment: PRR GLENN 11/11/19 patient has two sons- Serge and Rob - Mir (8) Genetic defect Status: Acute Comment: maternal embryo age-40, recommend weekly nsts until delivery, if normal testing, plan delivery at 40-41 weeks biological parents of fetus with history of child with genetic deletion- nl amniocentesis (9) Encounter for procreative management and counseling for person acting as gestational surrogate Status: Acute Comment: patient is surrogate, Surrogate parents Sarah(cell#[phone]) and Murphy-live in [place],have had 2 losses due to genetic deletion. History and Physical Date of Admission: 11/08/19 Intake Vital Signs 11/08/19 Height 5 ft 4 in 11/08/19 Weight: 189 lb 11/08/19 BMI 32.4 11/08/19 BP 124/84 H Intake Visit Reasons: OB check per [employer] Required: No Is patient in pain?: Yes Allergies No Known Allergies Allergy (Verified 11/08/19 09:25) Medications aspirin 81 mg tablet,delayed release 81 mg PO DAILY 02/04/19 [History Confirmed 11/08/19] cholecalciferol (vitamin D3) 400 unit chewable tablet 400 unit PO DAILY 02/04/19 [History Confirmed 11/08/19] docosahexanoic acid 200 mg capsule mg PO cap 04/30/19 [History Confirmed 11/08/19] levothyroxine 25 mcg capsule 25 mcg PO DAILY #30 cap 05/09/19 [Rx Confirmed 11/08/19] acetaminophen 325 mg tablet 325 mg PO Q6H PRN 10/17/19 [History Confirmed 11/08/19] diphenhydramine HCl 25 mg capsule 25 mg PO QHS PRN 10/17/19 [History Confirmed 11/08/19] ferrous sulfate 325 mg (65 mg iron) tablet 325 mg PO DAILY 10/17/19 [History Confirmed 11/08/19] Last Menstral Period: 01/27/19 Zika: Zika virus screening: Negative : No PFSH PFSH Medical History Anemia (Acute) History of hemorrhoids (Acute) No significant medical problems (Acute) Shortness of breath (Acute) Thyroid disease (Acute) Surgical History No significant past surgical history (Acute) S/P wisdom tooth extraction (Ruled-out) Family History Father Myocardial infarction Grandfather Myocardial infarction Hypertension Uncle Myocardial infarction Mother Hypertension Social History (Updated 11/08/19 @ 09:46 by Abby Cash MD) household members: spouse, family housing: house number of children: 2 pets and animals: No Smoking Status: Never smoker alcohol intake: never substance use type: does not use caffeine: No what type of physical activity do you participate in: walking frequency: daily seatbelt use: always do you feel safe at home: Yes additional social history: - [employer] 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 Date Name GA/Weeks Outcome Route Bth Weight Gen Labor Lgth Anesthesia Del Locatn Provider FOB Unknown 2013-Serge 40 live - full term 6lbs 15o Male none [facility] Unknown 2016-Dominic 40 live - full term 8lbs 7o M gita none [facility] HPI OB check per SM: Details: ELMER SABA is a 24 year old @ 39w3d IAL 5 cm dilated some vb no lof good fm OB Visit GLENN Calculator Estimated Delivery Date Method Current WG Current Estimate 11/11/19 Ultrasound #1 39w 4d Other Estimates 11/03/19 LMP (Certain) 40w 5d Expected Delivery Route/Plan Labor Preferences- labor support person: Ameya(spouse) Parents:Sarah and Murphy pain management options preferred: minimal intervention cut cord/dad catch: Sarah to catch, Murphy to cut cord. Sarah skin to skin : biological mom Sarah working with [place] [employer] control planned: [] discussed possible routes of delivery and associated risks: [] special requests: WP aware of surrogacy-room for Sarah and Murphy with baby planned/spoke with Claudia Specific Issue/Plans flu vaccine: given tdap vaccine: given rhogam: [given LARC form signed: yes movement and labor precautions reviewed. Problem list reviewed and updated with the most current plan of care details and appropriate orders placed. Relevant counseling for the gestational age provided. Continue routine care and follow up unless otherwise noted in visit notes/problem list details Initial Weight: Not Recorded Date EGA Weight BP Urine Prot Glucose FHR FuHt Pres Mov CTX Dilation Effaced St Visit Note 05/27/19 16w 0d 182 lb 8 oz 116/84 165 no vb lof cramping has amnio on monday06/28/19 20w 4d 185 lb 2 oz 120/84 Negative Negative 150 22 07/30/19 25w 1d 187 lb 128/78 Negative Negative 149 26 Doing well. Good FM. NO VB, LOF, CTX. 08/20/19 28w 1d 188 lb 2 oz 120/80 152 29 No VB, LOF. Good FM. 09/05/19 30w 3d 191 lb 8 oz 122/80 Negative Negative 148 30 No VB, LOF. Good FM 09/18/19 32w 2d 189 lb 122/74 Negative Negative 140 32 no vb lof good fm no regular ctx 10/03/19 34w 3d 190 lb 4 oz 138/89 Negative Negative 140 34 no vb lof good fm no reg ctx 10/18/19 36w 4d 189 lb 135 36 SM- no vb lof good fm no reg ctx 10/31/19 38w 3d 192 lb 126/82 Negative Negative 140 38 Cephalic 1 MH-no reg ctx. No VB, LOF. Reactive NST. CBC, TSH MH-no reg ctx. No VB, LOF. Reactive NST. CBC, TSH,t4 11/07/19 39w 3d 189 lb 116/62 Negative Negative 140 39 Cephalic 3 SM- discussed IOL secondary to Notes Visit Date: 11/07/19 ??No visit notes to display Visit Date: 10/31/19 ??No visit notes to display Visit Date: 10/18/19 ??No visit notes to display Visit Date: 10/03/19 ??no vb lof good fm no reg ctx ??Abby Cash MD on 10/03/19 Visit Date: 09/18/19 ??no vb lof good fm no regular ctx ??Abby Cash MD on 09/18/19 Visit Date: 09/05/19 ??No VB, LOF. Good FM ??Susanne Correa NP-C on 09/05/19 Visit Date: 08/20/19 ??No VB, LOF. Good FM. ??FRANKIE WestfallC on 08/20/19 Visit Date: 07/30/19 ??Doing well. Good FM. NO VB, LOF, CTX. ??FRANKIE WestfallC on 07/30/19 Visit Date: 06/28/19 ??No visit notes to display Visit Date: 05/27/19 ??no vb lof cramping has amnio on monday ??Abby Cash MD on 05/27/19 ACOG First Trimester First Trimester: Second Trimester Second Trimester: Signs and Symptoms of Labor, Selecting a care provider, Reproductive Life Planning, Care Planning, Tobacco C essation, Depression/Anxiety and Intimate Partner Violence Third Trimester Third Trimester: Pain Management Plans, Labor support person(s), Immediate Larc, Movement Monitoring and Infant Feeding Yes ; discussed Trial of Labor after Counseling or discussed Circumcision preference Diagnostics Diagnostics Diagnostics Blood Type O NEGATIVE 08/20/19 Antibody Screen TNP 08/20/19 Glucose 1 Hr 50 gm 95 mg/dL (70-140) 08/20/19 Hgb 11.3 g/dL (12.0-15.0) L 10/31/19 Hct 32.8 % (37-47) L 10/31/19 Details: HIV: Urine Culture: Sequential Screen: NIPT Screen: ROS [employer] system reviewed and no additional complaints, except as docu Card Reports system reviewed and no additional complaints, except as docu Resp Reports system reviewed and no additional complaints, except as docu GI Reports system reviewed and no additional complaints, except as docu, Reports nausea Reports system reviewed and no additional complaints, except as docu Musc Reports system reviewed and no additional complaints, except as docu Exam Const General: cooperative, healthy appearing, comfortable, anxious HENMT Head: normal to inspection Nose: external nose normal Face and sinus: normal facial exam Neck Neck: normal visual inspection, full ROM, no lymphadenopathy Thyroid: thyroid normal Chest Chest palpation & inspection: normal inspection of the chest Resp Effort & Inspection: normal respiratory effort GI Inspection: normal to inspection Palpation: soft, other (gravid uterus) Other: infant vertex and appropriate size for gestational age Other: Cervical Exam: Extrem General: pedal edema Assessment & Plan Problems 1. Hypothyroid in , antepartum O99.280; E03.9 2. Anemia affecting in third trimester O99.013 Start iron. Recheck CBC at 36 weeks 3. 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 39 weeks gestation of Z3A.39 genetic screening nl. afp screen neg. anatomy us- echo repeat @ 25 wks . Growth US normal, growth US every 4 weeks with MFM 5. Rh negative status during in third trimester O26.893 rhogam at 28 weeks and prn bleeding 6. Supervision of other normal Z34.80 PRR GLENN 11/11/19 patient has two sons- Serge and Rob - Mir 7. Genetic defect Q99.9 maternal embryo age-40, recommend weekly nsts until delivery, if normal testing, plan delivery at 40-41 weeks biological parents of fetus with history of child with genetic deletion- nl amniocentesis 8. Encounter for procreative management and counseling for person acting as gestational surrogate Z31.7 patient is surrogate, Surrogate parents Sarah(cell#[phone]) and Murphy- live in [place],have had 2 losses due to genetic deletion. Plan Patient presents IAL, plan expectant management for , pitocin/AROM PRN if needed. Pain management: prefers minimal intervention GBS negative. Management of any complications: surrogate - parents to be present at I have reviewed the [facility] and made any clinically relevant updates. Coding Level of Care Code OB Routine Diagnoses Hypothyroid in , antepartum O99.280; E03.9 Anemia affecting in third trimester O99.013 ??Trimester: third trimester Abnormal echocardiography affecting antepartum care of mother, single or unspecified fetus O35.8XX0 ??Fetus number: single or unspecified fetus 39 weeks gestation of Z3A.39 ??Weeks of gestation: 39 weeks Rh negative status during in third trimester O26.893 ??Trimester: third trimester Supervision of other normal Z34.80 Genetic defect Q99.9 Encounter for procreative management and counseling for person acting as gestational surrogate Z31.7
[2019-11-08] MEDS: Naproxen 250 MG Tablet 500 MG PO (14:56)
[2019-11-08] MEDS: 0.9% Saline Lock 10 ML Syringe IV (14:58)
[2019-11-08] MEDS: oxyCODONE 5 MG Tablet PO (17:39)
[2019-11-08 17:44] VITALS: BP 128/87; PULSE 90; RESP 16; TEMP 36.5
--- NOTE | 2019-11-08 18:03 | PCM.OPRPT ---
Problem List (1) Active labor at term Status: Acute (2) Hypothyroid in , antepartum Status: Acute (3) Anemia affecting Status: Acute Qualifiers: Comment: Start iron. 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 afp screen neg. anatomy us- echo repeat @ 25 wks . Growth US normal, growth US every 4 weeks with MFM (6) Rh negative status during Status: Acute Qualifiers: Comment: rhogam at 28 weeks and prn bleeding (7) Supervision of other normal Status: Acute Comment: PRR GLENN 11/11/19 patient has two sons- Serge and [place] - Mir (8) Genetic defect Status: Acute Comment: maternal embryo age-40, recommend weekly nsts until delivery, if normal testing, plan delivery at 40-41 weeks biological parents of fetus with history of child with genetic deletion- nl amniocentesis (9) Encounter for procreative management and counseling for person acting as gestational surrogate Status: Acute Comment: patient is surrogate, Surrogate parents Sarah(cell#[phone]) and Murphy-live in [place],have had 2 losses due to genetic deletion. Vaginal Delivery Maternal Presentation: Active Labor ial 39 weeks Amniotic Membrane Rupture Type: Artificial Amniotic Fluid Description: Clear Date of Procedure: 11/08/19 Pre-Operative Diagnosis: ial Post-Operative Diagnosis: same Surgery/ Procedure Performed: Spontaneous Vaginal Delivery Type of Anesthesia: None Description of Procedure: Patient began pushing and delivered the head in the JOSEE presentation. The head was delivered atraumatically. The anterior and posterior shoulders delivered without complication followed by the rest of the and the was placed on the maternal abdomen. Delayed cord clamping was employed for approximately 60 seconds. Cord was clamped and cut and gentle traction was applied to the cord. The perineum and vagina were inspected and noted to have no laceration. some retained placenta was noted and membranoius insertion was noted on the cord so the placenta was grasped at the cervical outlet and encouraged to deliver and after ultrasound confirmation once the entire placenta was delivered was confirmed patient did well. EBL was 400 cc. Patient and tolerated delivery well. Presentation: JOSEE Placental Delivery Description: Spontaneous Placenta Disposition: [facility] Cord Vessel Description: 3 Vessels Cord Entanglement: None Estimated Blood Loss: 400 A gender: Female Episiotomy Description: None Laceration: None Medications given after delivery: IV Pitocin Complications: None Multi Select Codes - Urinary/Genital Urinary/Genital CPT Codes: 34118 Vaginal Delivery [facility]
[2019-11-08 20:15] VITALS: BP 133/83; PULSE 75; RESP 18; TEMP 36.4
[2019-11-09] MEDS: Naproxen 250 MG Tablet 500 MG PO ×2 (00:21→21:47)
[2019-11-09 00:26] VITALS: BP 128/77; PULSE 83; RESP 16; TEMP 36.3
[2019-11-09 04:00] VITALS: BP 138/90; PULSE 70; RESP 16; TEMP 36.6
[2019-11-09 09:58] VITALS: BP 132/87; PULSE 73; RESP 16; TEMP 36.4
--- NOTE | 2019-11-09 10:04 | PCM.PN.OB ---
Patient Problems: Active and Suspected Problems (Last Reviewed 11/08/19 @ 09:25 by Shalonda Duran) Active labor at term (Acute) Subjective: doing well no complaints pain controlled no CP SOB N V ambulating well tolerating po lochia moderate, emotionally doing very well with surrogate delivery. pumping going well - Physical Exam Vitals/I&O's: Vital Signs Temp Pulse Resp BP Pulse Ox 97.5 F L 73 16 132/87 H 99 11/09/19 09:58 11/09/19 09:58 11/09/19 09:58 11/09/19 09:58 11/08/19 14:25 Oxygen Delivery Method Room Air Weight: 188 lb Body Mass Index (BMI) 32.2 Intake and Output for Last 24 Hours 11/07/19 11/08/19 11/09/19 23:59 23:59 23:59 Intake Total 1420 / 1420 Output Total 700 / 700 Balance 720 / 720 Laboratory Results 11/08/19 09:50: WBC 13.9 H, RBC 3.64 L, Hgb 12.2, Hct 34.9 L, MCV 95.9, MCH 33.5 H, MCHC 35.0, RDW Std Deviation 48.5 H, RDW Coeff of Kalin 14.0, Plt Count 201, MPV 9.7, Immature Gran % (Auto) 0.700, Neut % (Auto) 83.6 H, Lymph % (Auto) 9.7 L, [place] % (Auto) 4.5, Eos % (Auto) 1.4, Baso % (Auto) 0.1, Absolute Neuts (auto) 11.6 H, Absolute Lymphs (auto) 1.35, Nucleated RBC % 0 11/08/19 09:50: Blood Type O NEGATIVE, Antibody Screen TNP 11/08/19 09:50: Hep Bs Antigen Non-Reactive 11/08/19 09:50: Antibody Screen NEGATIVE 11/08/19 15:20: Screen NEGATIVE, Baby's Blood Type O POSITIVE, Baby's RYDER NEGATIVE Current Medications Acetaminophen (Tylenol) 1,000 mg PO Q8H PRN PRN PRN Reason: Pain Score 1-3/10 Bisacodyl (Dulcolax) 10 mg RECTAL UD PRN PRN Reason: If no BM Dibucaine (Dibucaine) 1 applic TOPICAL TID PRN PRN; Protocol PRN Reason: Discomfort Hydrocortisone (Hytone) 1 applic TOPICAL TID PRN PRN; Protocol PRN Reason: Discomfort Methylergonovine Maleate (Methergine) 0.2 mg IM X1 PRN PRN Reason: Excess bleeding/uterine atony Naproxen (Naprosyn) 500 mg PO Q8H PRN PRN PRN Reason: Pain Score 1-3/10 Last Admin: 11/09/19 00:21 Dose: 500 mg Documented by: Ondansetron HCl (Zofran) 4 mg IV Q4H PRN PRN PRN Reason: Nausea Oxycodone HCl (Oxyir) 5 - 10 mg PO Q4H PRN PRN PRN Reason: Pain Score 4-10/10 Last Admin: 11/08/19 17:39 Dose: 10 mg Documented by: Senna/Docusate Sodium (Senokot-S, Reny-Colace) 1 - 2 tablet PO DAILY PRN PRN PRN Reason: Constipation Simethicone (Mylicon) 80 mg PO PCHS PRN PRN Reason: Indigestion/Stomach pain Sodium Chloride () 5 - 15 ml IV UD PRN PRN Reason: SALINE FLUSH Medical Necessity - Tobacco Use Smoking Status: Never smoker Assessment/Plan All Active Problems (Last Reviewed 11/08/19 @ 09:25 by Shalonda Duran) Active labor at term (Acute) Hypothyroid in , antepartum (Acute) Anemia affecting (Acute) Abnormal echocardiogram, affecting care of mother, antepartum (Acute) (Acute) Rh negative status during (Acute) Supervision of other normal (Acute) Genetic defect (Acute) Encounter for procreative management and counseling for person acting as gestational surrogate (Acute) Acute sinusitis, unspecified (Resolved) Subchorionic bleed (Resolved) s/p PPD # 1 1. routine post delivery care- surrogate delivery, support given 2. breast pumping- support given 3. rh negative- rhogam pRN 4. rubella immune
[2019-11-09 12:00] VITALS: BP 142/94; PULSE 80; RESP 16; TEMP 36.7
[2019-11-09] MEDS: oxyCODONE 5 MG Tablet PO (14:27)
--- NOTE | 2019-11-09 15:00 | CASEMGMT ---
Social Work Consult: Support/Resources Informant: Self-Referral Met with gestational surrogate, Micheline in room. Introduced self as well as social service director role. Micheline resting in bed and presenting with a positive affect. This is the third for Micheline and first surrogacy. Micheline is to Dony and has two male children together ages 5 and 2. Micheline denies any mental health history. Broached topic of depression and provided Micheline with resources on signs/symptoms. Micheline smiling often during conversation. Micheline stating to have always wanted to be a surrogate after completing own family. Micheline stating to be glad to be able to provide another family with a child. Micheline stating to have had a positive experience with surrogacy. Micheline stating to be looking forward to returning to home and being with family. Micheline stating that Dony has two weeks off work and will be able to assist with children while Micheline recovers. Active support and listening provided. Micheline denies any concerns with returning to home. Barrett Miller MSW, LIZZETTE
--- NOTE | 2019-11-09 15:15 | CASEMGMT ---
Social Work Consult: Support Informant: Self-Referral Met with genetic parents, Sarah and Murphy in room. Introduced self as well as psychologist social role. Sarah and Murphy are the biological parents to infant, Louise [place]. Sarah and Murphy stating to have been able to be present during delivery and to have a connection with Louise. Sarah stating plan to breastfeed but recognizing that this could be something that will not work out. Sarah stating that gestational surrogate, Micheline has been assisting by pumping and providing some breast milk for infant. Sarah stating that plan is to discharge to home in [place], [place] tomorrow. Sarah stating to have all needed supplies within the home. 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 Murphy will then be the primary caregiver for . Active support and listening provided. Infant to discharge to home with Lb. Barrett Miller MSW, LIZZETTE
[2019-11-09 16:30] VITALS: BP 136/83; PULSE 75; RESP 16; TEMP 36.1
[2019-11-09 19:59] VITALS: BP 143/95; PULSE 85; RESP 16; TEMP 36.6; O2SAT 98
[2019-11-10 01:55] VITALS: BP 119/75; PULSE 72; RESP 18; TEMP 36.6; O2SAT 99
[2019-11-10] MEDS: Senna/Docusate Sodium 1 Tablet PO (08:50)
[2019-11-10] MEDS: Naproxen 250 MG Tablet 500 MG PO (08:51)
[2019-11-10 08:53] VITALS: BP 128/87; PULSE 74; RESP 18; TEMP 36.3
--- NOTE | 2019-11-10 09:05 | PCM.PN.OB ---
Patient Problems: Active and Suspected Problems (Last Reviewed 11/08/19 @ 09:25 by Shalonda Duran) Active labor at term (Acute) Subjective: doing well no complaints pain controlled no CP SOB N V ambulating well tolerating po lochia moderate, going well - Physical Exam Vitals/I&O's: Vital Signs Temp Pulse Resp BP Pulse Ox 97.4 F L 74 18 128/87 H 99 11/10/19 08:53 11/10/19 08:53 11/10/19 08:53 11/10/19 08:53 11/10/19 01:55 Oxygen Delivery Method Room Air Weight: 188 lb Body Mass Index (BMI) 32.2 Intake and Output for Last 24 Hours 11/08/19 11/09/19 11/10/19 23:59 23:59 23:59 Intake Total 1420 / 1420 Output Total 700 / 700 Balance 720 / 720 General: Alert, Oriented x3 Current Medications Acetaminophen (Tylenol) 1,000 mg PO Q8H PRN PRN PRN Reason: Pain Score 1-3/10 Bisacodyl (Dulcolax) 10 mg RECTAL UD PRN PRN Reason: If no BM Dibucaine (Dibucaine) 1 applic TOPICAL TID PRN PRN; Protocol PRN Reason: Discomfort Hydrocortisone (Hytone) 1 applic TOPICAL TID PRN PRN; Protocol PRN Reason: Discomfort Methylergonovine Maleate (Methergine) 0.2 mg IM X1 PRN PRN Reason: Excess bleeding/uterine atony Naproxen (Naprosyn) 500 mg PO Q8H PRN PRN PRN Reason: Pain Score 1-3/10 Last Admin: 11/10/19 08:51 Dose: 500 mg Documented by: Ondansetron HCl (Zofran) 4 mg IV Q4H PRN PRN PRN Reason: Nausea Oxycodone HCl (Oxyir) 5 - 10 mg PO Q4H PRN PRN PRN Reason: Pain Score 4-10/10 Last Admin: 11/09/19 14:27 Dose: 5 mg Documented by: Senna/Docusate Sodium (Senokot-S, Reny-Colace) 1 - 2 tablet PO DAILY PRN PRN PRN Reason: Constipation Last Admin: 11/10/19 08:50 Dose: 2 tablet Documented by: Simethicone (Mylicon) 80 mg PO HS PRN PRN Reason: Indigestion/Stomach pain Sodium Chloride () 5 - 15 ml IV UD PRN PRN Reason: SALINE FLUSH Medical Necessity - Tobacco Use Smoking Status: Never smoker Assessment/Plan All Active Problems (Last Reviewed 11/08/19 @ 09:25 by Shalonda Duran) Active labor at term (Acute) Hypothyroid in , antepartum (Acute) Anemia affecting (Acute) Abnormal echocardiogram, affecting care of mother, antepartum (Acute) (Acute) Rh negative status during (Acute) Supervision of other normal (Acute) Genetic defect (Acute) Encounter for procreative management and counseling for person acting as gestational surrogate (Acute) Acute sinusitis, unspecified (Resolved) Subchorionic bleed (Resolved) s/p PPD # 2 1. routine post delivery care- surrogate delivery, support given 2. breast pumping- support given 3. rh negative- rhogam pRN 4. rubella immune
--- NOTE | 2019-11-10 10:16 | DCINST_ITS ---
Discharge Diet: No Restrictions Discharge Activity: Return to Normal Activity, May not drive while taking narcotic pain medications., May Shower May resume sexual activity in: 4-6 weeks Call your doctor if your incision/area has: Continuous Slow Oozing, Sudden Increased Bleeding, Increased Pain/ Swelling, Increased Redness, Foul Smelling Discharge Additional Instructions: If you experience any of the following, contact your healthcare provider. * Bleeding that soaks a pad every hour for 2 hours * Fever 100.4 or higher * Unrelieved incision or abdominal pain * Swelling, redness, discharge or bleeding from your incision or episiotomy site * Your incision begins to separate * Problems urinating (including inability to urinate or burning while urinating). * Visual changes * Severe headache * Flu-like symptoms * Pain or redness in one of both of your breasts * Pain, warmth, tenderness or swelling in your legs, especially the calf area * Frequent nausea and vomiting * Symptoms of depression or anxiety If you experience any of the following, call 911 or go to the nearest Emergency Room. * Chest pain * Problems breathing * Seizure activity * Partial or complete paralysis of a body part, slurred speech, weakness or drooping of the face, or a sudden inability to walk or hold your balance Allergies/Adverse Reactions: Allergies No Known Allergies Allergy (Verified 11/08/19 09:51) Medications to take at Discharge aspirin 81 mg tablet,delayed release 81 mg PO DAILY 02/04/19 ferrous sulfate 325 mg (65 mg iron) tablet 325 mg PO DAILY 10/17/19 Vits [Prenatabs FA] 1 tab PO DAILY 11/08/19 levothyroxine 25 mcg capsule 25 mcg PO DAILY 11/08/19 Please Follow Up With: Abby Cash MD - [phone] When: Call to make an appointment with your doctor in 6 weeks. If you had elevated Blood pressure or 4th degree laceration you will need to be seen in 2 weeks. Primary Care Physician: Micheline Schaefer NP-C [Primary Care Provider] - Test Results: Test results from this visit will be discussed in further detail at your follow- up appointment, if applicable.
[2019-11-12 14:11] LABS: Pathology Specimen OB SEE PATHOLOGY REPORT
[2019-11-13 11:28] LABS: Pathology Specimen OB SEE PATHOLOGY REPORT
== END 2019-11-10 12:00 | disposition home or self-care (01) | DRG 806 ==
PROVIDERS: Admitting Provider Obstetrics & Gynecology; PCP Nurse Practitioner Primary Care; Referring Provider Obstetrics & Gynecology; Visit Provider Obstetrics & Gynecology
DX: O99.02 Anemia complicating childbirth (principal); O36.0130 Maternal care for anti-D [Rh] antibodies, third trimester, not applicable or unspecified; Z37.0 Single live birth; D64.9 Anemia, unspecified; O99.284 Endocrine, nutritional and metabolic diseases complicating childbirth; E03.9 Hypothyroidism, unspecified; O26.893 Other specified pregnancy related conditions, third trimester; O35.8XX0 Maternal care for other (suspected) fetal abnormality and damage, not applicable or unspecified; O73.0 Retained placenta without hemorrhage; Z3A.39 39 weeks gestation of pregnancy
CPT/HCPCS: 59025; 59050; 85025; 85461; 86850; 86900; 86901; 87340; 88307; 90384; 99218; J7120; A4216; G0378; J2405; J2790

== ENCOUNTER → 2019-12-12 10:22 | Outpatient (CLI) | payer OTHER, SELFPAY ==
[2019-12-12 10:01] VITALS: BMI 32.2
[2019-12-12 10:48] LABS: Absolute Lymphocyte Count 1.57 X10^3/uL (0.83-4.51); Absolute Neutrophil Count 6.7 X10^3/uL (2.0-7.7); Basophil# 0.02 X10^3/uL; Basophil% 0.2 % (0-1); Eosinophil# 0.16 X10^3/uL; Eosinophils% 1.8 % (0-5); Hematocrit 37.4 % (37-47); Hemoglobin 12.7 g/dL (12.0-15.0); Lymphocyte # 1.57 X10^3/ul (4.0); Lymphocyte % 17.4 % (19-41); Mean Corpuscular Hgb 31.6 pg (27.0-32.0); Mean Platelet Vol. 8.9 fl (6.2-12.0); Monocyte# 0.55 X10^3/uL; Monocyte% 6.1 % (0-10); NRBC Flagged by Analyzer 0 % (0-5); Neutrophil # 6.68 X10^3/uL (2.7-7.7); Neutrophil % 74.3 % (47-70); Platelet Count 284 K/mm3 (150-450); RBC Distribution Width CV 11.8 % (11.6-14.6); RBC Distribution Width SD 39.7 fl (35.1-43.9); Red Blood Count 4.02 M/mm3 (4.2-5.4)
[2019-12-12 11:13] LABS: T4 Free Direct 0.85 ng/dL (0.76-1.46); Thyroid Stim Hormone (TSH) 0.42 uIU/mL (0.358-3.74)
== END ==
PROVIDERS: PCP Nurse Practitioner Primary Care; Referring Provider Nurse Practitioner Women's Health; Visit Provider Nurse Practitioner Women's Health
DX: R53.83 Other fatigue (principal)
CPT/HCPCS: 36415; 84439; 84443; 85025

== ENCOUNTER → 2020-12-14 | Outpatient (CLI) | payer SELFPAY ==
[2020-12-14 11:17] VITALS: BMI 30.7
[2020-12-17 15:44] LABS: HPV Reflexed? NOT INDICATED
== END | disposition home or self-care (01) ==
LOC: LABSPEC 17:05
PROVIDERS: PCP Nurse Practitioner Primary Care; Referring Provider Obstetrics & Gynecology; Visit Provider Obstetrics & Gynecology
DX: Z12.4 Encounter for screening for malignant neoplasm of cervix (principal)
CPT/HCPCS: 88175; G0145

== ENCOUNTER → 2021-09-27 11:07 | Outpatient (CLI) | payer SELFPAY ==
[2021-09-27 12:04] LABS: hCG Titer Quant., Serum 43 mIU/mL (1-3)
== END ==
PROVIDERS: PCP Nurse Practitioner Primary Care; Referring Provider Nurse Practitioner Women's Health; Visit Provider Nurse Practitioner Women's Health
DX: O20.0 Threatened abortion (principal); Z3A.00 Weeks of gestation of pregnancy not specified
CPT/HCPCS: 36415; 84702; 86850; 86900; 86901

== ENCOUNTER → 2021-09-29 12:46 | Outpatient (CLI) | payer SELFPAY ==
[2021-09-29 13:52] LABS: hCG Titer Quant., Serum 18 mIU/mL (1-3)
== END ==
PROVIDERS: PCP Nurse Practitioner Primary Care; Referring Provider Nurse Practitioner Women's Health; Visit Provider Nurse Practitioner Women's Health
DX: O20.0 Threatened abortion (principal); Z3A.00 Weeks of gestation of pregnancy not specified
CPT/HCPCS: 36415; 84702

== ENCOUNTER → 2022-02-26 | Outpatient (CLI) | payer BC, SELFPAY ==
[2022-02-28 01:07] LABS: Chlamydia By Nucleic Acid AMP Negative (Negative)
[2022-02-28 13:28] LABS: Gonococcus By Nucleic Acid AMP Negative (Negative)
== END | disposition home or self-care (01) ==
LOC: LABSPEC 07:08
PROVIDERS: PCP Nurse Practitioner Primary Care; Visit Provider Nurse Practitioner Women's Health
DX: Z11.3 Encounter for screening for infections with a predominantly sexual mode of transmission (principal)
CPT/HCPCS: 87491; 87591

== ENCOUNTER → 2022-03-16 | Outpatient (CLI) | payer BC, SELFPAY ==
[2022-03-16 17:33] LABS: ALB/GLOB Ratio 1.2 RATIO (0.9-2.4); AST(SGOT) 16 U/L (15-37); Alanine Aminotransfer ALT/SGPT 22 U/L (13-56); Albumin, Serum 4.1 g/dL (3.2-5.0); Alkaline Phosphatase 71 U/L (45-117); Anion Gap 5 (5-15); BUN 8 mg/dL (7-18); BUN/Creat Ratio 10.1 RATIO (10-20); Calcium,Total 8.8 mg/dL (8.5-10.1); Chloride 104 mmol/L (98-107); Creatinine, Serum 0.79 mg/dL (0.55-1.02); EST Glomerular Filtration Rate 91 mL/min (>60); Est Glom Filt Rate - Afr Amer 110 mL/min (>60); Globulin 3.5 g/dL (2.2-4.2); Glucose 83 mg/dL (74-106); Potassium 3.4 mmol/L (3.5-5.1); Protein, Total 7.6 g/dL (6.4-8.2); Sodium Level 137 mmol/L (136-145)
== END | disposition home or self-care (01) ==
LOC: POLAB3 13:50
PROVIDERS: PCP Nurse Practitioner Primary Care; Visit Provider Internal Medicine Nephrology
DX: I10 Essential (primary) hypertension (principal)
CPT/HCPCS: 36415; 80053

== ENCOUNTER → 2023-02-01 | Outpatient (CLI) | payer BC, SELFPAY ==
--- NOTE | 2023-02-01 08:42 | RDU_ITS ---
Reason For Study: Hypertension Right Renal Artery Left Renal Artery Right renal artery ostium Left renal artery ostium 69.2/32.1 128.5/43.0 RSV/EDV. PSV/EDV. Right renal artery proximal Left renal artery proximal PSV/EDV 86.2/31.9 PSV/EDV. 76.5/29.9 . Right renal artery mid 78.5/30.4 Left renal artery mid 95.0/35.7 PSV/EDV. PSV/EDV . Right renal artery distal 83.1/36.6 Left renal artery distal 112.5/48.9 PSV/EDV. PSV/EDV. Right Renal Parenchyma Left Renal Parenchyma Upper Pole Medula 37.2/18.5 Left upper pole medulla 43.7/17.4 PSV/EDV. PSV/EDV . Right upper pole medulla EDR 0.50 . Left upper pole medulla EDR 0.40 . Right upper pole medulla R.I. Left upper pole medulla R.I. 0.60 . 0.50 . UP Cortex 18.1/8.7 PSV/EDV. Upper Alek Cortx 24.0/13.1 PSV/EDV. Left upper pole cortex EDR 0.50 . Right upper pole cortex EDR 0.50 . Left upper pole cortex R.I. 0.52 . Right upper pole cortex R.I. 0.46 . Left lower Pole medulla 20.8/9.8 Right lower Pole medulla 36.1/17.4 PSV/EDV . PSV/EDV . Left lower pole medulla EDR 0.50 . Right lower pole medulla EDR 0.50 . Left lower pole medulla R.I. 0.53 . Right lower pole medulla R.I. Lower Pole Cortx 19.2/9.3 PSV/EDV. 0.52 . Left lower pole cortex EDR 0.50 . Lower Pole Cortex 19.6/8.7 PSV/EDV. Left lower pole cortex R.I. 0.50 . Right lower pole cortex EDR 0.40 . Left Renal Hilar Right lower pole cortex R.I. 0.56 . LT Hilar avg 102.9/50.2 PSV/EDV . Right Renal Hilar Left hilar acceleration time 20 Right Hilar avg 95.8/34.7 PSV/EDV. m/sec. Right hilar acceleration time 20 Left Renal Dimensions m/sec. Left kidney size 11.40 cm . Right Renal Dimensions Left cortical dimension 1.02 cm . Right kidney size 12.95 cm . Right cortical dimension 1.09 cm . Aorta Proximal abdominal aorta 1.6 cm . Proximal abdominal aorta peak systolic velocity is 126.4 cm/sec . Distal abdominal aorta 1.2 cm . Distal abdominal aorta peak systolic velocity is 130.7 cm/sec . VL/Renal Artery Duplex Ultrasound Interpretation Summary Maximal diameter of the abdominal aorta is 1.6 cm which is normal. Peak systoli c velocity elevated distally at 130 cm second peak systolic flow. Increased aortic velocities inval idate renal artery to aortic ratios. Less than 60% stenosis bilateral renal arteries Maintained right renal length of 12.95 cm Maintained left renal length of 11.4 cm Ordering Physician: Micheline Wallis Referring Physician: Rachel Bryant Performed By: Luke Blunt RVT
== END | disposition home or self-care (01) ==
LOC: CVS 08:40
PROVIDERS: PCP Nurse Practitioner Primary Care; Referring Provider Nurse Practitioner Family; Visit Provider Nurse Practitioner Family
DX: I10 Essential (primary) hypertension (principal)
CPT/HCPCS: 93975

== ENCOUNTER → 2024-04-10 | Outpatient (CLI) | payer BC, SELFPAY ==
[2024-04-13 06:11] LABS: Chlamydia By Nucleic Acid AMP Negative (Negative); Gonococcus By Nucleic Acid AMP Negative (Negative)
[2024-04-15 09:07] LABS: HPV APTIMA, High Risk Negative (Negative)
== END | disposition home or self-care (01) ==
PROVIDERS: PCP Nurse Practitioner Primary Care; Visit Provider Nurse Practitioner Women's Health
DX: Z12.4 Encounter for screening for malignant neoplasm of cervix (principal); Z11.3 Encounter for screening for infections with a predominantly sexual mode of transmission
CPT/HCPCS: 87491; 87591; 87624; 88175; G0145

== ENCOUNTER → 2024-10-01 | Outpatient (CLI) | payer BC, SELFPAY ==
[2024-10-01 15:02] LABS: Absolute Lymphocyte Count 1.55 X10^3/uL (0.83-4.51); Absolute Neutrophil Count 8.6 X10^3/uL (2.0-7.7); Basophil# 0.04 X10^3/uL; Basophil% 0.4 % (0-1); Eosinophil# 0.33 X10^3/uL; Hematocrit 38.3 % (37-47); Hemoglobin 13.5 g/dL (12.0-15.0); Lymphocyte # 1.55 X10^3/ul (0.83-4.51); Lymphocyte % 13.9 % (19-41); Mean Corp Hgb Conc 35.2 g/dL (32-36); Mean Corpuscular Hgb 31.3 pg (27.0-32.0); Mean Corpuscular Volume 88.7 fL (81-99); Mean Platelet Vol. 9.6 fl (6.2-12.0); Monocyte# 0.62 X10^3/uL; Monocyte% 5.5 % (0-10); NRBC Flagged by Analyzer 0 % (0-5); Neutrophil % 76.8 % (47-70); Platelet Count 254 K/mm3 (150-450); RBC Distribution Width CV 11.9 % (11.6-14.6); Red Blood Count 4.32 M/mm3 (4.2-5.4); White Blood Count 11.2 K/mm3 (4.4-11.0)
[2024-10-01 15:24] LABS: Free T3 2.6 pg/mL (2.18-3.98); T4 Free Direct 0.89 ng/dL (0.76-1.46)
[2024-10-01 15:31] LABS: Hemoglobin A1c 4.6 % (3.8-5.6)
[2024-10-01 15:53] LABS: HIV - WCH Non-Reactive (Nonreactive); Hepatitis B Surface Antigen Non-Reactive (Nonreactive); Hepatitis C Antibody Non-Reactive (Nonreactive); Rubella IgG Reactive (Nonreactive); Syphilis Antibodies Non-reactive
== END | disposition home or self-care (01) ==
LOC: BWCLAB 13:36
PROVIDERS: PCP Nurse Practitioner Primary Care; Referring Provider Advanced Practice Midwife; Visit Provider Advanced Practice Midwife
DX: Z13.29 Encounter for screening for other suspected endocrine disorder (principal); O99.280 Endocrine, nutritional and metabolic diseases complicating pregnancy, unspecified trimester; E07.9 Disorder of thyroid, unspecified; R53.83 Other fatigue; O99.891 Other specified diseases and conditions complicating pregnancy; Z3A.00 Weeks of gestation of pregnancy not specified
CPT/HCPCS: 36415; 83036; 84439; 84443; 84481; 85025; 86703; 86762; 86780; 86803; 86850; 86900; 86901; 87340

== ENCOUNTER → 2024-10-11 | Outpatient (CLI) | payer BC, SELFPAY ==
[2024-10-14 20:07] LABS: Chlamydia By Nucleic Acid AMP Negative (Negative); Gonococcus By Nucleic Acid AMP Negative (Negative)
== END | disposition home or self-care (01) ==
PROVIDERS: PCP Nurse Practitioner Primary Care; Referring Provider Registered Nurse; Visit Provider Registered Nurse
DX: O09.90 Supervision of high risk pregnancy, unspecified, unspecified trimester (principal); Z3A.00 Weeks of gestation of pregnancy not specified
CPT/HCPCS: 87086; 87491; 87591

== ENCOUNTER → 2024-10-25 | Outpatient (CLI) | payer SELFPAY ==
[2024-10-25 17:22] LABS: Protein, Urine (Random) 13.6 mg/dL (<11.9); Protein:Creat Ratio 177 mg/g CRE (0-200)
[2024-10-25 17:29] LABS: AST(SGOT) 17 U/L (15-37); Alanine Aminotransfer ALT/SGPT 30 U/L (13-56); Albumin, Serum 3.7 g/dL (3.2-5.0); Alkaline Phosphatase 63 U/L (45-117); Anion Gap 9 (5-15); BUN 7 mg/dL (7-18); BUN/Creat Ratio 10.2 RATIO (10-20); Calcium,Total 9.1 mg/dL (8.5-10.1); Chloride 103 mmol/L (98-107); Creatinine, Serum 0.69 mg/dL (0.55-1.02); EST Glomerular Filtration Rate 106 mL/min (>60); Est Glom Filt Rate - Afr Amer 128 mL/min (>60); Globulin 3.6 g/dL (2.2-4.2); Glucose 85 mg/dL (74-106); Potassium 3.2 mmol/L (3.5-5.1); Protein, Total 7.3 g/dL (6.4-8.2); Sodium Level 135 mmol/L (136-145)
== END | disposition home or self-care (01) ==
LOC: BWCLAB 13:56
PROVIDERS: Registered Nurse; PCP Nurse Practitioner Primary Care; Referring Provider Advanced Practice Midwife; Visit Provider Advanced Practice Midwife
DX: O16.9 Unspecified maternal hypertension, unspecified trimester (principal); Z3A.00 Weeks of gestation of pregnancy not specified
CPT/HCPCS: 36415; 80053; 82570; 84156

== ENCOUNTER → 2024-11-13 | Outpatient (CLI) | payer OTHER, SELFPAY | END | disposition home or self-care (01) | LOC: BWCLAB 16:16 | PROVIDERS: Registered Nurse; PCP Nurse Practitioner Primary Care; Referring Provider Nurse Practitioner Women's Health; Visit Provider Nurse Practitioner Women's Health | DX: O09.90 Supervision of high risk pregnancy, unspecified, unspecified trimester (principal); Z3A.00 Weeks of gestation of pregnancy not specified | CPT/HCPCS: 36415 ==

== ENCOUNTER → 2024-12-12 | Outpatient (CLI) | payer OTHER, SELFPAY ==
[2024-12-12 17:32] LABS: ALB/GLOB Ratio 0.8 RATIO (0.9-2.4); AST(SGOT) 173 U/L (15-37); Alanine Aminotransfer ALT/SGPT 300 U/L (13-56); Albumin, Serum 3.1 g/dL (3.2-5.0); Alkaline Phosphatase 89 U/L (45-117); Anion Gap 6 (5-15); BUN 7 mg/dL (7-18); BUN/Creat Ratio 12.4 RATIO (10-20); Calcium,Total 8.9 mg/dL (8.5-10.1); Chloride 106 mmol/L (98-107); Creatinine, Serum 0.57 mg/dL (0.55-1.02); EST Glomerular Filtration Rate 132 mL/min (>60); Est Glom Filt Rate - Afr Amer 160 mL/min (>60); Globulin 3.9 g/dL (2.2-4.2); Glucose 89 mg/dL (74-106); Potassium 3.7 mmol/L (3.5-5.1); Sodium Level 137 mmol/L (136-145)
== END | disposition home or self-care (01) ==
PROVIDERS: PCP Nurse Practitioner Primary Care; Referring Provider Obstetrics & Gynecology; Visit Provider Obstetrics & Gynecology
DX: Z36.9 Encounter for antenatal screening, unspecified (principal); O10.919 Unspecified pre-existing hypertension complicating pregnancy, unspecified trimester; Z3A.00 Weeks of gestation of pregnancy not specified
CPT/HCPCS: 36415; 80053

== ENCOUNTER → 2024-12-13 | Outpatient (CLI) | payer OTHER, SELFPAY ==
[2024-12-13 18:29] LABS: Hematocrit 31.3 % (37-47); Hemoglobin 11.4 g/dL (12.0-15.0); Mean Corp Hgb Conc 36.4 g/dL (32-36); Mean Corpuscular Hgb 32.6 pg (27.0-32.0); Mean Corpuscular Volume 89.4 fL (81-99); Mean Platelet Vol. 9.2 fl (6.2-12.0); Platelet Count 271 K/mm3 (150-450); RBC Distribution Width CV 12.8 % (11.6-14.6); White Blood Count 9.4 K/mm3 (4.4-11.0)
[2024-12-13 18:45] LABS: Prothrombin Time (Protime)PT. 13.7 SECONDS (11.7-14.9)
[2024-12-13 18:46] LABS: Partial Thromboplast Time 32.9 Seconds (24.1-36.2)
[2024-12-13 19:00] LABS: ALB/GLOB Ratio 0.8 RATIO (0.9-2.4); AST(SGOT) 173 U/L (15-37); Alanine Aminotransfer ALT/SGPT 324 U/L (13-56); Albumin, Serum 3.2 g/dL (3.2-5.0); Alkaline Phosphatase 86 U/L (45-117); Anion Gap 7 (5-15); BUN 8 mg/dL (7-18); BUN/Creat Ratio 13.3 RATIO (10-20); Calcium,Total 9.4 mg/dL (8.5-10.1); Chloride 106 mmol/L (98-107); EST Glomerular Filtration Rate 123 mL/min (>60); Est Glom Filt Rate - Afr Amer 149 mL/min (>60); Globulin 4.1 g/dL (2.2-4.2); Glucose 80 mg/dL (74-106); Potassium 3.6 mmol/L (3.5-5.1); Protein, Total 7.3 g/dL (6.4-8.2); Sodium Level 137 mmol/L (136-145)
[2024-12-16 16:09] LABS: Anti-Smooth Muscle ABS 3 Units (0-19); CMV Acute Antibody IgM < 30.0 AU/mL (0.0-29.9); CMV Antibody IgG < 0.60 U/mL (0.00-0.59); EBV Acute VCA IgM < 36.0 U/mL (0.0-35.9); EBV Nuclear Antigen IgG 21.4 U/mL (0.0-17.9); EBV-VCA IgG 74.5 U/mL (0.0-17.9); IgG, Quant 897 mg/dL (586-1602); Immunoglobulin G, Subclass 1 521 mg/dL (248-810); Immunoglobulin G, Subclass 2 339 mg/dL (130-555); Immunoglobulin G, Subclass 3 43 mg/dL (15-102); Immunoglobulin G, Subclass 4 12 mg/dL (2-96)
[2024-12-18 20:08] LABS: Anti-Nuclear Antibody Test Negative (.)
== END | disposition home or self-care (01) ==
PROVIDERS: PCP Nurse Practitioner Primary Care; Referring Provider Obstetrics & Gynecology; Visit Provider Obstetrics & Gynecology
DX: O09.92 Supervision of high risk pregnancy, unspecified, second trimester (principal); R74.8 Abnormal levels of other serum enzymes; Z3A.00 Weeks of gestation of pregnancy not specified
CPT/HCPCS: 80053; 82784; 82787; 83516; 85027; 85610; 85730; 86038; 86644; 86645; 86664; 86665

== ENCOUNTER → 2024-12-14 | Outpatient (CLI) | payer OTHER, SELFPAY ==
--- NOTE | 2024-12-14 11:44 | US_ITS ---
PROCEDURE: ULTRASOUND ABDOMEN LIMITED REASON FOR EXAM: Elevated liver function tests. 17 weeks . COMPARISON: No relevant prior. FINDINGS: Liver: Grossly normal size and echotexture. Sagittal measurement of 16 cm. Blood flow: Hepatopetal. Gallbladder: No stones, sludge, wall thickening or tenderness. Common bile duct: Normal measuring 0.23 cm.. Pancreas: Visualized portions are sonographically unremarkable. Ascites: Unremarkable. Right kidney: 11.1 X 4.8 X 4.1 cm. 0.9 cm. Anechoic nodule measuring 1.1 x 1.1 x 0.9 cm. US/Abdomen Limited IMPRESSION: Unremarkable ultrasound of the right upper quadrant. Small cysts in the right kidney. Reading Location: [facility]
== END | disposition home or self-care (01) ==
LOC: US 11:44
PROVIDERS: PCP Nurse Practitioner Family; Referring Provider Obstetrics & Gynecology; Visit Provider Obstetrics & Gynecology
DX: O26.892 Other specified pregnancy related conditions, second trimester (principal); R74.8 Abnormal levels of other serum enzymes; Z3A.17 17 weeks gestation of pregnancy
CPT/HCPCS: 76705

== ENCOUNTER → 2024-12-19 | Outpatient (CLI) | payer OTHER, SELFPAY ==
[2024-12-19 12:26] LABS: Absolute Lymphocyte Count 1.35 X10^3/uL (0.83-4.51); Absolute Neutrophil Count 10.2 X10^3/uL (2.0-7.7); Basophil# 0.04 X10^3/uL; Basophil% 0.3 % (0-1); Eosinophil# 0.37 X10^3/uL; Eosinophils% 2.9 % (0-5); Hematocrit 32.6 % (37-47); Hemoglobin 11.5 g/dL (12.0-15.0); Lymphocyte # 1.35 X10^3/ul (0.83-4.51); Lymphocyte % 10.6 % (19-41); Mean Corp Hgb Conc 35.3 g/dL (32-36); Mean Corpuscular Hgb 32.6 pg (27.0-32.0); Mean Corpuscular Volume 92.4 fL (81-99); Mean Platelet Vol. 9.5 fl (6.2-12.0); Monocyte# 0.75 X10^3/uL; Monocyte% 5.9 % (0-10); NRBC Flagged by Analyzer 0 % (0-5); Neutrophil # 10.16 X10^3/uL (2.7-7.7); Neutrophil % 79.4 % (47-70); Platelet Count 285 K/mm3 (150-450); RBC Distribution Width CV 13.2 % (11.6-14.6); RBC Distribution Width SD 43.2 fl (35.1-43.9); Red Blood Count 3.53 M/mm3 (4.2-5.4); White Blood Count 12.8 K/mm3 (4.4-11.0)
[2024-12-19 13:39] LABS: ALB/GLOB Ratio 1.4 RATIO (0.9-2.4); AST(SGOT) 59 U/L (<=31); Alanine Aminotransfer ALT/SGPT 172 U/L (<=34); Alkaline Phosphatase 77 U/L (35-104); Anion Gap 10 (5-15); BUN 7 mg/dL (4-19); BUN/Creat Ratio 11.5 RATIO (10-20); Calcium 10.1 mg/dL (7.6-11.0); Carbon Dioxide 22.3 mmol/L (22.0-29.0); Chloride 104 mmol/L (96-108); Creatinine, Serum 0.6 mg/dL (0.6-1.0); EST Glomerular Filtration Rate 124 (>60); Glucose 85 mg/dL (70-99); Potassium 3.8 mmol/L (3.3-5.1); Sodium Level 136 mmol/L (133-145); Total Bilirubin 0.38 mg/dL (0.00-1.30)
== END | disposition home or self-care (01) ==
LOC: BWCLAB 12:01
PROVIDERS: PCP Nurse Practitioner Family; Referring Provider Obstetrics & Gynecology; Visit Provider Obstetrics & Gynecology
DX: R74.8 Abnormal levels of other serum enzymes (principal)
CPT/HCPCS: 36415; 80053; 85025

== ENCOUNTER → 2025-01-09 | Outpatient (CLI) | payer OTHER, SELFPAY ==
[2025-01-09 12:22] LABS: Absolute Lymphocyte Count 1.29 X10^3/uL (0.83-4.51); Absolute Neutrophil Count 8.6 X10^3/uL (2.0-7.7); Basophil# 0.03 X10^3/uL; Basophil% 0.3 % (0-1); Eosinophil# 0.48 X10^3/uL; Eosinophils% 4.3 % (0-5); Hematocrit 30.2 % (37-47); Hemoglobin 10.6 g/dL (12.0-15.0); Lymphocyte # 1.29 X10^3/ul (0.83-4.51); Lymphocyte % 11.7 % (19-41); Mean Corp Hgb Conc 35.1 g/dL (32-36); Mean Corpuscular Hgb 32.9 pg (27.0-32.0); Mean Corpuscular Volume 93.8 fL (81-99); Monocyte# 0.63 X10^3/uL; Monocyte% 5.7 % (0-10); NRBC Flagged by Analyzer 0 % (0-5); Neutrophil # 8.56 X10^3/uL (2.7-7.7); Neutrophil % 77.3 % (47-70); Platelet Count 219 K/mm3 (150-450); RBC Distribution Width CV 13.5 % (11.6-14.6); RBC Distribution Width SD 46.3 fl (35.1-43.9); Red Blood Count 3.22 M/mm3 (4.2-5.4); White Blood Count 11.1 K/mm3 (4.4-11.0)
[2025-01-09 14:16] LABS: ALB/GLOB Ratio 1.4 RATIO (0.9-2.4); AST(SGOT) 22 U/L (<=31); Alanine Aminotransfer ALT/SGPT 35 U/L (<=34); Albumin, Serum 3.8 g/dL (3.5-5.0); Alkaline Phosphatase 77 U/L (35-104); Anion Gap 11 (5-15); BUN 5 mg/dL (4-19); BUN/Creat Ratio 7.8 RATIO (10-20); Calcium,Total 8.5 mg/dL (7.6-11.0); Chloride 104 mmol/L (98-108); Creatinine, Serum 0.62 mg/dL (0.70-1.20); EST Glomerular Filtration Rate 122 (>60); Globulin 2.7 g/dL (2.2-4.2); Glucose 71 mg/dL (70-99); Potassium 3.7 mmol/L (3.3-5.1); Protein, Total 6.5 g/dL (5.9-8.4); Sodium Level 137 mmol/L (133-145); Total Bilirubin 0.25 mg/dL (0.00-1.30)
== END | disposition home or self-care (01) ==
LOC: BWCLAB 11:46
PROVIDERS: Nurse Practitioner Women's Health; PCP Nurse Practitioner Family; Referring Provider Obstetrics & Gynecology; Visit Provider Obstetrics & Gynecology
DX: O09.92 Supervision of high risk pregnancy, unspecified, second trimester (principal); R74.8 Abnormal levels of other serum enzymes; Z3A.00 Weeks of gestation of pregnancy not specified
CPT/HCPCS: 36415; 80053; 85025

== ENCOUNTER → 2025-02-24 | Outpatient (CLI) | payer OTHER, SELFPAY ==
[2025-02-24 16:05] LABS: Absolute Lymphocyte Count 1.04 X10^3/uL (0.83-4.51); Absolute Neutrophil Count 6.3 X10^3/uL (2.0-7.7); Basophil# 0.02 X10^3/uL; Basophil% 0.2 % (0-1); Eosinophil# 0.34 X10^3/uL; Eosinophils% 4.1 % (0-5); Hematocrit 27.8 % (37-47); Lymphocyte # 1.04 X10^3/ul (0.83-4.51); Lymphocyte % 12.7 % (19-41); Mean Corpuscular Hgb 33.7 pg (27.0-32.0); Mean Corpuscular Volume 93.6 fL (81-99); Mean Platelet Vol. 9.8 fl (6.2-12.0); Monocyte# 0.46 X10^3/uL; Monocyte% 5.6 % (0-10); NRBC Flagged by Analyzer 0 % (0-5); Neutrophil # 6.31 X10^3/uL (2.7-7.7); Platelet Count 210 K/mm3 (150-450); RBC Distribution Width CV 13.3 % (11.6-14.6); RBC Distribution Width SD 45.4 fl (35.1-43.9); Red Blood Count 2.97 M/mm3 (4.2-5.4); White Blood Count 8.2 K/mm3 (4.4-11.0)
[2025-02-24 16:55] LABS: ALB/GLOB Ratio 1.4 RATIO (0.9-2.4); AST(SGOT) 22 U/L (<=31); Alanine Aminotransfer ALT/SGPT 20 U/L (<=34); Albumin, Serum 3.6 g/dL (3.5-5.0); Alkaline Phosphatase 83 U/L (35-104); Anion Gap 12 (5-15); BUN 7 mg/dL (4-19); BUN/Creat Ratio 9.4 RATIO (10-20); Calcium,Total 9.1 mg/dL (7.6-11.0); Carbon Dioxide 20.5 mmol/L (21.0-32.0); Chloride 102 mmol/L (98-108); Creatinine, Serum 0.71 mg/dL (0.70-1.20); EST Glomerular Filtration Rate 116 (>60); Globulin 2.6 g/dL (2.2-4.2); Glucose 124 mg/dL (70-99); Glucose Challenge Gest 1H 50g 124 mg/dL (70-140); HIV Nonreactive (Nonreactive); Potassium 3.3 mmol/L (3.3-5.1); Protein, Total 6.2 g/dL (5.9-8.4); Sodium Level 134 mmol/L (133-145); Syphilis Antibodies Nonreactive (Nonreactive); Total Bilirubin 0.28 mg/dL (0.00-1.30)
== END | disposition home or self-care (01) ==
LOC: BWCLAB 13:16
PROVIDERS: PCP Nurse Practitioner Family; Visit Provider Advanced Practice Midwife
DX: O10.919 Unspecified pre-existing hypertension complicating pregnancy, unspecified trimester (principal); O09.92 Supervision of high risk pregnancy, unspecified, second trimester; O26.892 Other specified pregnancy related conditions, second trimester; Z67.91 Unspecified blood type, Rh negative; R74.8 Abnormal levels of other serum enzymes; Z3A.24 24 weeks gestation of pregnancy
CPT/HCPCS: 36415; 80053; 82950; 85025; 86703; 86780; 86850; 86900; 86901

== ENCOUNTER → 2025-03-28 | Outpatient (CLI) | payer OTHER, SELFPAY ==
--- NOTE | 2025-03-28 08:13 | US_ITS ---
PROCEDURE: OB LIMITED WITH BIOMETRICS 03/28/2025 REASON FOR EXAM: GROWTH TECHNIQUE: High resolution obstetric ultrasound performed using a 2D transducer. Standard views obtained, including biometry, anatomy survey, and Doppler studies. COMPARISON: None FINDINGS Number: 1 Position: Vertex Placental Position: Anterior and not low-lying. Placental Abnormalities: No evidence of previa. DIMENSIONS: Biparietal Diameter: 8.28 cm: 33 weeks and 2 days: 71.8 percentile/ Head Circumference: 30.06 cm: 33 weeks and 2 days: 40 percentile/ Abdominal Circumference: 30.71 cm: 34 weeks and 5 days: 96.5 percentile/ Femur Length: 6.31 cm: 32 weeks and 4 days: 47 percentile/ ESTIMATED WEIGHT: 2319 g plus/-348 g ESTIMATED WEIGHT PERCENTILE (24+ weeks): 87 ESTIMATED GESTATIONAL AGE: Baseline: 32 weeks and 2 days By Ultrasound: 32 weeks and 6 days ESTIMATED DATE OF DELIVERY: Baseline: May 21, 2025 By Ultrasound: May 17, 2025 BIOPHYSICAL ASSESSMENT: Amniotic Fluid Volume: 4.1 cm Amniotic Fluid Index: 14.7 (8-24 cm normal range) Cardiac Motion: 138 beats per minute (average) Trunk and Limb Motion: Present. MATERNAL ANATOMY: Adnexa: Neither maternal ovary is successfully identified. US/OB Limited With Biometrics IMPRESSION: Single live intrauterine gestation with a mean gestational age of 32 weeks and 6 days. Reading Location: [place] [id number]
[2025-03-28 16:19] LABS: Protein, Urine (Random) 19.5 mg/dL (0.0-12.0); Protein:Creat Ratio 131 mg/g CRE (0-200)
== END | disposition home or self-care (01) ==
LOC: OPUS 08:02
PROVIDERS: Advanced Practice Midwife; PCP Nurse Practitioner Family; Referring Provider Nurse Practitioner Women's Health; Visit Provider Nurse Practitioner Women's Health
DX: O10.913 Unspecified pre-existing hypertension complicating pregnancy, third trimester (principal); Z3A.32 32 weeks gestation of pregnancy
CPT/HCPCS: 76816; 82570; 84156

== ENCOUNTER → 2025-04-08 | Outpatient (CLI) | payer OTHER, SELFPAY | END | disposition home or self-care (01) | LOC: LABSPEC 11:56 | PROVIDERS: PCP Nurse Practitioner Family; Referring Provider Obstetrics & Gynecology; Visit Provider Obstetrics & Gynecology | DX: N89.8 Other specified noninflammatory disorders of vagina (principal) | CPT/HCPCS: 87070; 87205 ==

== ENCOUNTER 2025-04-21 14:00 | Outpatient (CLI) | payer OTHER, SELFPAY ==
--- NOTE | 2025-04-21 14:07 | US_ITS ---
PROCEDURE: OB BIOPHYSICAL PROF W/O NST 04/21/2025 REASON FOR EXAM: DECELERATION IN OFFICE TECHNIQUE: OB BIOPHYSICAL PROF W/O NST COMPARISON: 03/28/2020 FINDINGS Number: 1 Position: Vertex Placental Position: Anterior not low lying Placental Abnormalities: None, grade 2 age by LMP 35 weeks 5 days for an GLENN of 05/21/2025. Biophysical profile: Breathing movements 0/2 Gross body movements 2/2 tone 2/2 Amniotic fluid volume 2/2 US/OB Biophysical Prof W/O NST IMPRESSION: Biophysical profile 03/30 Reading Location: [id number]
[2025-04-21 14:15] VITALS: BMI 34.7
[2025-04-21 14:18] VITALS: BP 144/88; PULSE 67; RESP 16; TEMP 37
[2025-04-21 15:38] VITALS: BP 127/78; PULSE 68
--- NOTE | 2025-04-21 16:05 | OB.TRI.PN ---
Progress Notes Date of Service: 04/21/25 Progress Note: Patient presents for triage evaluation secondary to variable in office on NST at 35.5 weeks FHT: 130 Moderate variability reactive no decelerations category I tracing [place]: no Contractions Assessment and plan: BPP 6/8 with Reactive NST on unit for total of 06/01, reassuring maternal and status patient discharged to home to follow-up in office. See problem list details for additional plan information. Charges/Coding Multi Select Codes Urinary/Genital Urinary/Genital CPT Codes: 32391-85 non-stress test Interp Assessment & Plan (1) Anemia in preg-unspec: QUALIFIERS: Trimester: second trimester Qualified Code(s): O99.012 - Anemia complicating , second trimester COMMENT: SlowFe (2) Antepartum variable deceleration: COMMENT: BPP 03/30 and reassuring NST for 06/01. d/c home (3) Elevated liver enzymes: COMMENT: mild. decreasing. (4) Chronic hypertension affecting : COMMENT: increased labetalol to 200mg Tid caused near syncope. Can't swallow procardia. Labetalol 100mg tid. RTO 1 wk BP check. MFM consult. Misses doses/discussed importance. No headache/vision changes. baseline pec labs asa 81mg at 10 weeks. 32 wk:NST and BPP weekly plus Growth Q4wk mfm for anatomy;03/31: 32 w US:96% AC, 84% EFW 03/31:vomited labetalol. Will repeat dose and call BP readings:132/83 (5) Thyroid disease: COMMENT: not on any medications, was on previous during surrogacy. (6) Obesity affecting : QUALIFIERS: Trimester: second trimester Obesity type affecting : unspecified obesity Qualified Code(s): O99.212 - Obesity complicating , second trimester COMMENT: HgbA1c (7) : QUALIFIERS: Weeks of gestation: 35 weeks Qualified Code(s): Z3A.35 - 35 weeks gestation of COMMENT: NIPT low risk(NO GENDER) carrier neg. . nl anatomy. (8) Rh negative status during : QUALIFIERS: Trimester: second trimester Qualified Code(s): O26.892 - Other specified related conditions, second trimester; Z67.91 - Unspecified blood type, Rh negative COMMENT: Rhogam @ 28 wks & PRN Bleeding. Baby is Rh- per Stephy results (9) Supervision of high-risk : QUALIFIERS: Trimester: third trimester Qualified Code(s): O09.93 - Supervision of high risk , unspecified, third trimester COMMENT: [id number](1 child was surrogate),GLENN 05/21/25, Dominic Melendez, ANTIONE Martins (10) Thyroid disease affecting : COMMENT: normal labs (11) Fatigue: QUALIFIERS: Fatigue type: unspecified Qualified Code(s): R53.83 - Other fatigue
== END 2025-04-21 16:11 | disposition home or self-care (01) ==
LOC: WPOUT 14:02 → WP 14:04
PROVIDERS: PCP Nurse Practitioner Family; Referring Provider Advanced Practice Midwife; Visit Provider Advanced Practice Midwife
DX: O99.013 Anemia complicating pregnancy, third trimester (principal); O10.913 Unspecified pre-existing hypertension complicating pregnancy, third trimester; O26.813 Pregnancy related exhaustion and fatigue, third trimester; O99.213 Obesity complicating pregnancy, third trimester; O26.893 Other specified pregnancy related conditions, third trimester; O99.283 Endocrine, nutritional and metabolic diseases complicating pregnancy, third trimester; E07.9 Disorder of thyroid, unspecified; Z79.82 Long term (current) use of aspirin; Z79.899 Other long term (current) drug therapy; Z3A.35 35 weeks gestation of pregnancy
CPT/HCPCS: 59025; 59050; 76819; 99221; G0378

== ENCOUNTER → 2025-04-28 | Outpatient (CLI) | payer OTHER, SELFPAY | END | disposition home or self-care (01) | LOC: LABSPEC 16:30 | PROVIDERS: PCP Nurse Practitioner Family; Referring Provider Advanced Practice Midwife; Visit Provider Advanced Practice Midwife | DX: O09.93 Supervision of high risk pregnancy, unspecified, third trimester (principal); Z3A.36 36 weeks gestation of pregnancy | CPT/HCPCS: 87081 ==

== ENCOUNTER → 2025-04-29 | Outpatient (CLI) | payer OTHER, SELFPAY ==
--- NOTE | 2025-04-29 13:09 | US_ITS ---
PROCEDURE: OB LIMITED WITH BIOMETRICS 04/29/2025 REASON FOR EXAM: GROWTH TECHNIQUE: OB LIMITED WITH BIOMETRICS COMPARISON: Prior study dated March 28, 2025. FINDINGS Number: 1 Position: Vertex Placental Position: Anterior and not low-lying. Placental Abnormalities: No evidence of previa. DIMENSIONS: Biparietal Diameter: 9 cm: 36 weeks and 4 days: 57 percentile/ Head Circumference: 32.4 cm: 36 weeks and 5 days: 21 percentile/ Abdominal Circumference: 34.4 cm: 38 weeks and 2 days: 92nd percentile/ Femur Length: 7.1 cm: 36 weeks and 1 day: 31st percentile/ ESTIMATED WEIGHT: 3250 g plus/-487 g ESTIMATED WEIGHT PERCENTILE (24+ weeks): 74 ESTIMATED GESTATIONAL AGE: Baseline: 36 weeks and 6 days By Ultrasound: 37 weeks and 1 day ESTIMATED DATE OF DELIVERY: Baseline: May 21, 2025 By Ultrasound: May 19, 2025 BIOPHYSICAL ASSESSMENT: Amniotic Fluid Volume: 6.3 cm Amniotic Fluid Index: 12.2 (8-24 cm normal range) Cardiac Motion: 144 beats per minute (average) Trunk and Limb Motion: Present. MATERNAL ANATOMY: Adnexa: Neither maternal ovary is successfully identified. US/OB Limited With Biometrics IMPRESSION: Single live intrauterine gestation with a mean gestational age of 37 weeks and 1 day. Reading Location: [place] [id number]
== END | disposition home or self-care (01) ==
LOC: US 13:08
PROVIDERS: PCP Nurse Practitioner Family; Referring Provider Nurse Practitioner Women's Health; Visit Provider Nurse Practitioner Women's Health
DX: O10.913 Unspecified pre-existing hypertension complicating pregnancy, third trimester (principal); Z3A.37 37 weeks gestation of pregnancy
CPT/HCPCS: 76816

== ENCOUNTER → 2025-05-05 | Outpatient (CLI) | payer OTHER, SELFPAY ==
[2025-05-05 13:28] LABS: Creatinine, Urine (random) 20.60 mg/dL (28.00-217.00); Protein, Urine (Random) < 6.0 mg/dL (0.0-12.0); Protein:Creat Ratio UNABLE TO CALCULATE mg/g CRE (0-200)
== END | disposition home or self-care (01) ==
LOC: LABSPEC 12:51
PROVIDERS: PCP Nurse Practitioner Family; Visit Provider Obstetrics & Gynecology
DX: O10.919 Unspecified pre-existing hypertension complicating pregnancy, unspecified trimester (principal); Z3A.00 Weeks of gestation of pregnancy not specified
CPT/HCPCS: 82570; 84156

== ENCOUNTER 2025-05-09 08:05 | Inpatient (IN) | payer OTHER, SELFPAY ==
[2025-05-09] VITALS (65 sets, daily range): BP systolic 118–182; BP diastolic 75–108; PULSE 62–102; RESP 16–20; TEMP 36.4–37.1; O2SAT 97–100; BMI 35.3
[2025-05-09] MEDS: Lactated Ringers 1,000 ML 50 ML IV (08:20)
[2025-05-09 08:55] LABS: Hematocrit 28.2 % (37-47); Hemoglobin 9.9 g/dL (12.0-15.0); Immature Granulocytes Count 0.110 X10^3/uL (0.0-0.0); Mean Corp Hgb Conc 35.1 g/dL (32-36); Mean Corpuscular Volume 92.8 fL (81-99); Mean Platelet Vol. 9.6 fl (6.2-12.0); NRBC Flagged by Analyzer 0 % (0-5); Platelet Count 178 K/mm3 (150-450); RBC Distribution Width CV 13.7 % (11.6-14.6); RBC Distribution Width SD 45.4 fl (35.1-43.9); Red Blood Count 3.04 M/mm3 (4.2-5.4); White Blood Count 8.2 K/mm3 (4.4-11.0)
[2025-05-09 09:43] LABS: Syphilis Antibodies Nonreactive (Nonreactive)
--- NOTE | 2025-05-09 17:15 | HP.PCM.OB_ITS ---
HPI - General General Date of Admission: 05/09/25 HPI Narrative ELMER BUENROSTRO, is a 30 F who presentsfor IOL chtn no vb lof good fm no reuglar ctx Maternal Data Information GLENN Calculator Estimated Delivery Date Method Current WG Current Estimate 05/21/25 LMP (Certain) 38w 2d PFSH PFS Medical History Former smoker, stopped smoking in distant past Seasonal allergies Ovarian cyst Hypertension Thyroid disease Anemia History of hemorrhoids Shortness of breath Home Medications ?Medication ?Instructions ?Recorded ?Last Taken ?Type multivit-min no.71-iron fum 28 1 cap PO DAILY vitamin 10/10/24 05/09/25 06:30 History mg-folate no.1 1 mg-dha 300 mg 1 cap capsule (PNV-Blodgett) labetalol 200 mg tablet 100 mg PO TID elevated BP 05/09/25 06:30 History 100 mg aspirin 81 mg tablet 81 mg PO QDAY blood pressure 04/21/25 05/09/25 06:30 History 81 mg Allergy/AdvReac Type Severity Reaction Status Date / Time No Known Allergies Allergy Verified 05/05/25 11:44 Family History Father Myocardial infarction Grandfather Myocardial infarction Hypertension Uncle Myocardial infarction Mother Hypertension Surgical History History of appendectomy S/P wisdom tooth extraction No significant past surgical history Social History adopted: No household members: significant other and children housing: house number of children: 2 current occupational status: employed current occupation: [employer] pets and animals: Yes (Avoids litterbox) pets and animals: cat(s) history of recent travel: No sexually active: Yes Smoking Status: Former smoker how long ago did patient quit smokinyears ago alcohol intake: current alcohol intake frequency: holidays/special occasions only details: not while substance use type: does not use well-balanced diet: daily or most days caffeine: No eating out: 1-3 times/week during the past year weight has: remained stable what type of physical activity do you participate in: none pelon/pentecostal: None seatbelt use: always do you feel safe at home: Yes additional social history: 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 Date Name GA/Weeks Outcome Route Bth Weight Gen Labor Lgth Anesthesia Del Locatn Provider FOB Unknown 2013-Serge 40 live - full term 6lbs 15o Male none [facility] Unknown 2016-Dominic 40 live - full term 8lbs 7o Male none [facility] Unknown 2020 Miscarriage 7 spontaneous 11/08/19 surrogate live - full term [facility] Dr. Abby Cash Delivery Date: 11/08/19 Last Updated by: Maribel Clark Surrogate Visit Details Expected Delivery Route/Plan Labor Preferences- CB/BF classes: no labor support person: Dave labor intervention preferences: [] pain management options preferred: limited cut cord/dad catch: yes : yes PP control planned: discussed discussed possible routes of delivery and associated risks: [] special requests: [] Plans Covid status: [] Flu vaccine: [] Tdap vaccine: [] Rhogam: NA, baby Rh neg LARC form signed: yes Problem list reviewed and updated with the most current plan of care details and appropriate orders placed. Relevant counseling for the gestational age provided. Continue routine care and follow up unless otherwise noted in visit notes/problem list details OB Flowsheet Initial Weight: 187 lb Date -?-?-?-?-?-?-?-?-?-?-?-?- EGA Weight BP Urine Prot -?-?-?-?-?-?-?-?-?-?-?-?- Glucose FHR FuHt Pres Dilation -?-?-?-?-?-?-?-?-?-?-?-?- Effaced St Visit Note 10/11/24 -?-?-?-?-?-?-?-?-?-?-?-?- 8w 2d 187 lb (+0 oz) 143/84 -?-?-?-?-?-?-?-?-?-?-?-?- 186 -?-?-?-?-?-?-?-?-?-?-?-?- LC- CRL 1.47 con with LMP. desires nipt. thyroid normal, no longer on medications.chronic htn on labetolol. 11/06/24 -?-?-?-?-?-?-?-?-?-?-?-?- 12w 0d 189 lb (+2 lb) 141/94 Negative -?-?-?-?-?-?-?-?-?-?-?-?- Negative -?-?-?-?-?-?-?-?-?-?-?-?- JV- pt here for nursing visit. still with elevated pressures. Starting procardia and close follow up. pt states that she has been on 5 or 6 different blood pressure medications. when she goes above 100 of labetalol her pressure drops too low. if now improvement with procardia will need to consult cardiology or at least primary care for bp assistance. 11/13/24 -?-?-?-?-?-?-?-?-?-?-?-?- 13w 0d 190 lb (+3 lb) 144/91 Negative -?-?-?-?-?-?-?-?-?-?-?-?- Negative 166 -?-?-?-?-?-?-?-?-?-?-?-?- MH-No VB. Br US confirm FHT. Not taking procardia/can't swallow it. States home BPs nl when takes labetalol 100mg tid but missed dose today. Had CMP per employee health today and minimally elevated AST/ALT. Stressed importance of tid dosing and risks of uncontrolled HTN. MFM consult. RTO 1 week 12/12/24 -?-?-?-?-?-?-?-?-?-?-?-?- 17w 1d 187 lb 4 oz (+4 oz) 123/77 Negative -?-?-?-?--?-?-?-?-?-?-?-?- Negative 150 -?-?-?-?-?-?-?-?-?-?-?-?- SM- no vb lof cr amping 01/09/25 -?-?-?-?-?-?-?-?-?-?-?-?- 21w 1d 191 lb (+4 lb) 135/86 Negative -?-?-?-?-?-?-?-?-?-?-?-?- Negative 151 -?-?-?-?-?-?-?-?-?-?-?-?- JV- no complaint s today. rpt cmp and cbc today. lft's have been trending down. 02/03/25 -?-?-?-?-?-?-?-?-?-?-?-?- 24w 5d 191 lb 6 oz (+4 lb 6 oz) 126/84 Negative -?-?-?-?-?-?-?-?-?-?-?-?- Negative 160 25 -?-?-?-?-?-?-?-?-?-?-?-?- KW- no vb/lof/ct x. good fm. is having some lower BPs (90/60) at home but not symptomatic. pepcid for heart burn. glucose next visit. 02/24/25 -?-?-?-?-?-?-?-?-?-?-?-?- 27w 5d 190 lb 4 oz (+3 lb 4 oz) 124/77 Negative -?-?-?-?-?-?-?-?-?-?-?-?- Negative 154 28 -?-?-?-?-?-?-?-?-?-?-?-?- MH-No VB. Good F m 28 wk labs pending. Larc. Discussed need for weekly NST, BPP and also growth US Q4wk at 32 wk. 03/12/25 -?-?-?-?-?-?-?-?-?-?-?-?- 30w 0d 196 lb 2 oz (+9 lb 2 oz) 138/84 Negative -?-?-?-?-?-?-?-?-?-?-?-?- Negative 145 30 -?-?-?-?-?-?-?-?-?-?-?-?- JV-no lof, vag b leeding or dec fm.needs growth us 32 and 36 weeks. still on labetalol.importance of iol discussed and she wants to try to avoid that. Will look forward to MFM explaining to her. JV-no lof, vag bleeding or d ec fm.needs growth us 32 and 36 weeks. still on labetalol.importance of iol discussed and she wants to try to avoid that. Will look forward to MFM explaining to her. needs tsh next visit 03/28/25 -?-?-?-?-?-?-?-?-?-?-?-?- 32w 2d 194 lb 2 oz (+7 lb 2 oz) 132/77 Trace -?--?-?-?-?-?-?-?-?-?-?-?- 250 g/dL 140 -?-?-?-?-?-?-?-?-?-?-?-?- KW- NST only. ur ine very concentrated and reports little to drink today. 03/31/25 -?-?-?-?-?-?-?-?-?-?-?-?- 32w 5d 195 lb 2 oz (+8 lb 2 oz) 144/91 138/94 Negative -?-?-?-?-?-?-?-?-?-?-?-?- Negative 140 -?-?-?-?-?--?-?-?-?-?-?-?- MH-NST only reac tive. States vomited labetalol this am. States more nausea in morning. Taking pepcid AM only and is controlling her heartburn. Discussed increased bile may cause nausea. Could also consider zofran 30 m in prior to taking labetalol. She will think about it. Reviewed with JSanjay:patient will take another dose of labetalol and call in BP today. Denies headache or vision changes. 04/08/25 -?-?-?-?-?-?-?-?-?-?-?-?- 33w 6d 197 lb 8 oz (+10 lb 8 oz) 131/89 Negative -?-?-?-?-?-?-?-?-?-?-?-?- Negative 130 34 Cephalic -?-?-?-?-?-?-?-?-?-?-?-?- JV-patient has c omplaint today of vaginal irritation. She tried monistat and it burned so she discontinued it. JV-patient has complaint tod ay of vaginal irritation. She tried monistat and it burned so she discontinued it. on exam there is some white discharge. she also complains of pain on her tongue. starting diflucan 150 for 2 doses, 3 days apart. 04/14/25 -?-?-?-?-?-?-?-?-?-?-?-?- 34w 5d 198 lb 4 oz (+11 lb 4 oz) 132/87 Negative -?-?-?-?-?--?-?-?-?-?-?-?- Negative 140 Cephalic -?-?-?-?-?-?-?-?-?-?-?-?- SM- no vb lof go od fm no regular ctx reviewed IOL plan 04/21/25 -?-?-?-?-?-?-?-?-?-?-?-?- 35w 5d 198 lb (+11 lb) 122/79 Negative -?-?-?-?-?-?-?-?-?-?-?-?- Negative 135 -?-?-?-?-?-?-?-?-?-?-?-?- KW- no vb/lof/ct x. good fm. NST reactive but did have one decel. to wp for BPP. discussed 38 IOL with SM last visit per patient. 04/28/25 -?-?-?-?-?-?-?-?-?-?-?-?- 36w 5d 198 lb 2 oz (+11 lb 2 oz) 136/90 Negative -?-?-?-?-?-?-?-?-?-?-?-?- Negative 130 37 Cephalic 0 -?-?-?-?-?-?-?-?-?-?-?-?- KW- no vb/lof/ct x. good fm. NST reactive. GBS today. KW- no vb/lof/ctx. good fm. NST reactive. GBS today. growth US tomorrow 05/05/25 -?-?-?-?-?-?-?-?-?-?-?-?- 37w 5d 200 lb (+13 lb) 136/92 Negative -?-?-?-?-?-?-?-?-?-?-?-?- Negative 140 38 Cephalic 0 .5 -?-?-?-?-?-?-?-?-?-?-?-?- 20 JV- nst reactive. IOL set for monday as per her request for this weekend. NST FHR Rate Baby A Baseline: 130 Variability:: Moderate Accelerations:: 15 x 15 Decelerations:: None NST Reactive:: Yes FHR Category:: Category I Uterine Activity:: irregular ROS Constitutional Constitutional: Reports systems reviewed and no addt'l complaints, except as documented Eyes Eyes: Denies change in vision ENT HEENT: Reports systems reviewed and no addt'l complaints, except as documented; Denies headache(s) Cardiovascular Cardiovascular: Reports systems reviewed and no addt'l complaints, except as documented; Denies chest pain or dyspnea Respiratory/Chest Respiratory/Chest: Reports systems reviewed and no addt'l complaints, except as documented Gastrointestinal Gastrointestinal: Reports systems reviewed and no addt'l complaints, except as documented; Denies abdominal pain Genitourinary Genitourinary: Reports systems reviewed and no addt'l complaints, except as documented, contractions Details: present (irregular) and movement Details: present; Denies dysuria or genital lesions Musculoskeletal Musculoskeletal: Reports systems reviewed and no addt'l complaints, except as documented Neurologic Neurologic: Reports systems reviewed and no addt'l complaints, except as documented Endocrine Endocrinology: Reports systems reviewed and no addt'l complaints, except as documented Vital Signs Vital Signs Vital Signs: 05/09/25 08:35 05/09/25 08:35 05/09/25 08:35 Temperature Temperature Source Temporal Pulse Rate 90 Respiratory Rate Blood Pressure 149/98 H BP Systolic 149 BP Diastolic 98 Pulse Ox 05/09/25 08:35 05/09/25 08:35 05/09/25 08:35 Temperature Temperature Source Pulse Rate 87 Respiratory Rate 18 Blood Pressure BP Systolic BP Diastolic Pulse Ox 97 05/09/25 08:35 05/09/25 08:39 05/09/25 08:39 Temperature 98.2 F Temperature Source Pulse Rate 91 Respiratory Rate Blood Pressure BP Systolic BP Diastolic Pulse Ox 98 05/09/25 08:44 05/09/25 08:44 05/09/25 08:49 Temperature Temperature Source Pulse Rate 101 H 84 Respiratory Rate Blood Pressure BP Systolic BP Diastolic Pulse Ox 98 05/09/25 08:49 05/09/25 08:54 05/09/25 08:54 Temperature Temperature Source Pulse Rate 90 Respiratory Rate Blood Pressure BP Systolic BP Diastolic Pulse Ox 97 97 05/09/25 08:59 05/09/25 08:59 05/09/25 09:00 Temperature Temperature Source Pulse Rate 85 Respiratory Rate Blood Pressure 124/83 H BP Systolic 124 BP Diastolic 83 Pulse Ox 98 05/09/25 09:00 05/09/25 10:34 05/09/25 10:34 Temperature Temperature Source Pulse Rate 82 73 Respiratory Rate Blood Pressure 152/101 H BP Systolic 152 BP Diastolic 101 Pulse Ox 05/09/25 10:40 05/09/25 10:40 05/09/25 10:40 Temperature Temperature Source Temporal Pulse Rate 98 Respiratory Rate 18 Blood Pressure BP Systolic BP Diastolic Pulse Ox 05/09/25 10:40 05/09/25 10:40 05/09/25 10:41 Temperature 97.6 F L Temperature Source Pulse Rate Respiratory Rate Blood Pressure 118/85 H BP Systolic 118 BP Diastolic 85 Pulse Ox 99 05/09/25 10:41 05/09/25 10:41 05/09/25 11:36 Temperature Temperature Source Pulse Rate 73 Respiratory Rate Blood Pressure 149/96 H BP Systolic 149 BP Diastolic 96 Pulse Ox 98 05/09/25 11:36 05/09/25 11:36 05/09/25 11:36 Temperature Temperature Source Pulse Rate 71 69 Respiratory Rate 18 Blood Pressure BP Systolic BP Diastolic Pulse Ox 05/09/25 11:36 05/09/25 11:36 05/09/25 11:39 Temperature 98.2 F Temperature Source Pulse Rate 70 Respiratory Rate Blood Pressure BP Systolic BP Diastolic Pulse Ox 99 05/09/25 11:39 05/09/25 11:42 05/09/25 11:42 Temperature Temperature Source Pulse Rate 71 Respiratory Rate Blood Pressure 137/88 H BP Systolic 137 BP Diastolic 88 Pulse Ox 99 05/09/25 12:44 05/09/25 12:44 05/09/25 12:44 Temperature Temperature Source Temporal Pulse Rate 72 Respiratory Rate Blood Pressure 139/89 H BP Systolic 139 BP Diastolic 89 Pulse Ox 05/09/25 12:44 05/09/25 12:44 05/09/25 12:44 Temperature Temperature Source Pulse Rate 73 Respiratory Rate 18 Blood Pressure BP Systolic BP Diastolic Pulse Ox 99 05/09/25 12:44 05/09/25 12:45 05/09/25 12:45 Temperature 97.8 F Temperature Source Pulse Rate 73 Respiratory Rate Blood Pressure BP Systolic BP Diastolic Pulse Ox 98 05/09/25 13:23 05/09/25 13:23 05/09/25 13:23 Temperature Temperature Source Pulse Rate 69 Respiratory Rate Blood Pressure 147/93 H BP Systolic 147 BP Diastolic 93 Pulse Ox 99 05/09/25 13:23 05/09/25 13:23 05/09/25 13:23 Temperature Temperature Source Pulse Rate 68 Respiratory Rate 18 Blood Pressure BP Systolic BP Diastolic Pulse Ox 98 05/09/25 13:23 05/09/25 14:36 05/09/25 14:36 Temperature 98.1 F Temperature Source Temporal Pulse Rate 73 Respiratory Rate Blood Pressure BP Systolic BP Diastolic Pulse Ox 05/09/25 14:36 05/09/25 14:36 05/09/25 14:36 Temperature 97.5 F L Temperature Source Pulse Rate Respiratory Rate 18 Blood Pressure BP Systolic BP Diastolic Pulse Ox 99 05/09/25 14:38 05/09/25 14:38 05/09/25 16:27 Temperature Temperature Source Pulse Rate 71 Respiratory Rate Blood Pressure 130/75 H 143/92 H BP Systolic 130 143 BP Diastolic 75 92 Pulse Ox 05/09/25 16:27 05/09/25 16:27 05/09/25 16:27 Temperature Temperature Source Temporal Pulse Rate 77 74 Respiratory Rate Blood Pressure BP Systolic BP Diastolic Pulse Ox 05/09/25 16:27 05/09/25 16:27 05/09/25 16:27 Temperature 98.6 F Temperature Source Pulse Rate Respiratory Rate 18 Blood Pressure BP Systolic BP Diastolic Pulse Ox 99 05/09/25 16:28 05/09/25 16:28 05/09/25 16:33 Temperature Temperature Source Pulse Rate 77 78 Respiratory Rate Blood Pressure BP Systolic BP Diastolic Pulse Ox 99 05/09/25 16:33 05/09/25 16:33 05/09/25 16:33 Temperature Temperature Source Pulse Rate 71 Respiratory Rate Blood Pressure 139/86 H BP Systolic 139 BP Diastolic 86 Pulse Ox 99 Weight Weight: 199 lb 8.293 oz Body Mass Index (BMI) 35.3 Physical Exam Const alert, oriented x3, no apparent distress and healthy appearing HEENT normocephalic and moist oral mucous membranes Head and Scalp: atraumatic Neck full ROM, no lymphadenopathy, supple and thyroid normal General: trachea midline Lymph Lymphatic: no lymphadenopathy noted Chest inspection of chest normal Resp normal respiratory effort Cardio regular rate GI soft to palpation and non-tender GI Narrative: gravid Inspection: gravid external exam normal Manual OB Exam: estimated gestational size appropriate, presentation cephalic, dilated, effaced and station Extremity normal to inspection General Extremity: Negative for edema Skin no rashes or lesions noted Neuro no focal motor deficits and deep tendon reflexes 2+ bilaterally Motor Exam: strength 5/5 throughout and clonus absent Psych mental status grossly normal Labs Labs Labs: Blood Type O NEGATIVE Antibody Screen NEGATIVE Hct 28.2 % (37-47) L Hgb 9.9 g/dL (12.0-15.0) L Pap Smear Negative Obstetrics Ultrasound Syphilis Total Ab Nonreactive (Nonreactive) VZV IgG Antibody > 4000 index (Immune >165) Rubella IgG Antibody Reactive (Nonreactive) Hep Bs Antigen Non-Reactive (Nonreactive) Hepatitis C Antibody Non-Reactive (Nonreactive) Chlamydia DNA (VISHAL) Negative (Negative) N.gonorrhoeae DNA (VISHAL) Negative (Negative) HIV 1&2 Antibody Nonreactive (Nonreactive) Glucose 1 Hr 50 gm 124 mg/dL (70-140) Group B Strep DNA Negative (Negative) Rhogam given: No Miscellaneous Test Assessment & Plan (1) Chronic hypertension affecting : COMMENT: increased labetalol to 200mg Tid caused near syncope. Can't swallow procardia. Labetalol 100mg tid. RTO 1 wk BP check. MFM consult. Misses doses/discussed importance. No headache/vision changes. baseline pec labs asa 81mg at 10 weeks. 32 wk:NST and BPP weekly plus Growth Q4wk mfm for anatomy;03/31: 32 w US:96% AC, 84% EFW 6/9:vomited labetalol. Will repeat dose and call BP readings:132/83 36w EFW 74%, AC 92% (2) Obesity affecting : QUALIFIERS: Trimester: second trimester Obesity type affecting : unspecified obesity Qualified Code(s): O99.212 - Obesity complicating , second trimester COMMENT: HgbA1c (3) : QUALIFIERS: Weeks of gestation: 37 weeks Qualified Code(s): Z3A.37 - 37 weeks gestation of COMMENT: GBS neg, NIPT low risk(NO GENDER) carrier neg. . nl anatomy. (4) Rh negative status during : QUALIFIERS: Trimester: second trimester Qualified Code(s): O26.892 - Other specified related conditions, second trimester; Z67.91 - Unspecified blood type, Rh negative COMMENT: Rhogam @ 28 wks & PRN Bleeding. Baby is Rh- per Stephy results (5) Supervision of high-risk : QUALIFIERS: Trimester: third trimester Qualified Code(s): O09.93 - Supervision of high risk , unspecified, third trimester COMMENT: [id number](1 child was surrogate),GLENN 05/21/25, PC Dominic Valentine, ANTIONE Martins (6) Thyroid disease affecting : COMMENT: normal labs (7) Encounter for induction of labor: PLAN: Plan Patient presents IOL, plan management for with cytotec. Pain management: minimal intervention GBS negative. Management of any complications: chtn I have reviewed the [facility] and made any clinically relevant updates.
--- NOTE | 2025-05-09 17:16 | PCM.PN.OB ---
Subjective Subjective arom light [facility] cat I tracing 5 cm continue exp management s/p cytotec Objective Data Objective Data Vital Signs: Vital Signs Temp Pulse Resp BP Pulse Ox 98.6 F 71 18 139/86 H 99 05/09/25 16:27 05/09/25 16:33 05/09/25 16:27 05/09/25 16:33 05/09/25 16:33 Weight: 199 lb 8.293 oz Body Mass Index (BMI) 35.3 Intake & Output: Intake and Output for Last 24 Hours 05/07/25 05/08/25 05/09/25 23:59 23:59 23:59 Intake Total 500 / 500 Output Total 450 / 450 Balance 50 / 50 Lab / Micro Data 05/09/25 08:20 Labs: Laboratory Results - last 24 hr 05/09/25 08:20: WBC 8.2, RBC 3.04 L, Hgb 9.9 L, Hct 28.2 L, MCV 92.8, MCH 32.6 H, MCHC 35.1, RDW Std Deviation 45.4 H, RDW Coeff of Kalin 13.7, Plt Count 178, MPV 9.6, Immature Gran % (Auto) 1.300 H, Neut % (Auto) 76.4 H, Lymph % (Auto) 13.9 L, [place] % (Auto) 4.9, Eos % (Auto) 3.3, Baso % (Auto) 0.2, Absolute Neuts (auto) 6.3, Absolute Lymphs (auto) 1.14, Nucleated RBC % 0, Syphilis Total Ab Nonreactive, Blood Type O NEGATIVE, Antibody Screen NEGATIVE
[2025-05-09] MEDS: Magnesium Sulfate 4gm/100mL 4 GM/100 ML IV.SOLN. IV (19:05)
[2025-05-09] MEDS: Magnesium Sulfate 20 GM/500 ML BAG IV ×2 (19:30)
--- NOTE | 2025-05-09 19:57 | PCM.PN.BLA ---
Progress Note bps elevated- magnesium started and labs drawn, asymptomatic, contractions increasing. current tracing: FHT: 140 Moderate variability reactive no decelerations category I tracing [place]: q 2-3 Contractions reviewed tracing abnormalities since last note: no significant A/P: labetalol hypertensive protocol, will do 200 TID after for management
[2025-05-09 20:02] LABS: Hematocrit 30.9 % (37-47); Hemoglobin 10.8 g/dL (12.0-15.0); Immature Granulocytes Count 0.160 X10^3/uL (0.0-0.0); Mean Corp Hgb Conc 35.0 g/dL (32-36); Mean Corpuscular Volume 93.1 fL (81-99); Mean Platelet Vol. 9.4 fl (6.2-12.0); NRBC Flagged by Analyzer 0 % (0-5); Platelet Count 213 K/mm3 (150-450); RBC Distribution Width CV 13.7 % (11.6-14.6); RBC Distribution Width SD 46.4 fl (35.1-43.9); Red Blood Count 3.32 M/mm3 (4.2-5.4); White Blood Count 11.7 K/mm3 (4.4-11.0)
[2025-05-09] MEDS: Oxytocin 15 Units/NS 250ml 15 UNITS/250 ML IV.SOLN 2 UNITS IV (20:28)
[2025-05-09 20:46] LABS: AST(SGOT) 23 U/L (<=31); Alanine Aminotransfer ALT/SGPT 15 U/L (<=34); Albumin, Serum 3.9 g/dL (3.5-5.0); Alkaline Phosphatase 156 U/L (35-104); Anion Gap 11 (5-15); BUN 7 mg/dL (4-19); BUN/Creat Ratio 10.2 RATIO (10-20); Calcium,Total 9.6 mg/dL (7.6-11.0); Carbon Dioxide 20.6 mmol/L (21.0-32.0); Chloride 104 mmol/L (98-108); Estimated Creatinine Clearance 121.47 ml/min (50-250); Globulin 2.8 g/dL (2.2-4.2); Glucose 86 mg/dL (70-99); Potassium 4.2 mmol/L (3.3-5.1)
--- NOTE | 2025-05-09 23:48 | EX.PCM.OBVAG ---
Assessment & Plan (1) Encounter for induction of labor: (2) Anemia in preg-unspec: QUALIFIERS: Trimester: second trimester Qualified Code(s): O99.012 - Anemia complicating , second trimester COMMENT: SlowFe (3) Chronic hypertension affecting : COMMENT: increased labetalol to 200mg Tid caused near syncope. Can't swallow procardia. Labetalol 100mg tid. RTO 1 wk BP check. MFM consult. Misses doses/discussed importance. No headache/vision changes. baseline pec labs asa 81mg at 10 weeks. 32 wk:NST and BPP weekly plus Growth Q4wk mfm for anatomy;03/31: 32 w US:96% AC, 84% EFW 03/31:vomited labetalol. Will repeat dose and call BP readings:132/83 36w EFW 74%, AC 92% (4) Thyroid disease: COMMENT: nl labs. history not present. not on any medications, was on previous during surrogacy. (5) Obesity affecting : QUALIFIERS: Trimester: second trimester Obesity type affecting : unspecified obesity Qualified Code(s): O99.212 - Obesity complicating , second trimester COMMENT: HgbA1c (6) : QUALIFIERS: Weeks of gestation: 37 weeks Qualified Code(s): Z3A.37 - 37 weeks gestation of COMMENT: GBS neg, NIPT low risk(NO GENDER) carrier neg. . nl anatomy. (7) Rh negative status during : QUALIFIERS: Trimester: second trimester Qualified Code(s): O26.892 - Other specified related conditions, second trimester; Z67.91 - Unspecified blood type, Rh negative COMMENT: Rhogam @ 28 wks & PRN Bleeding. Baby is Rh- per Stephy results (8) Supervision of high-risk : QUALIFIERS: Trimester: third trimester Qualified Code(s): O09.93 - Supervision of high risk , unspecified, third trimester COMMENT: [id number](1 child was surrogate),GLENN 05/21/25, Dominic Melendez BF Jordon (9) Vaginal delivery: COMMENT: sm iol chtn girl santana Maternal Data Information GLENN Calculator Estimated Delivery Date Method Current WG Current Estimate 05/21/25 LMP (Certain) 38w 2d Vaginal Delivery Maternal Presentation Maternal Presentation: see assessment and plan Vaginal Delivery Information Procedure Performed: Spontaneous Vaginal Delivery Surgeon/Practitioner: Abby Cash Date of Procedure: 05/09/25 Pre-Procedure Diagnosis: see assessment and plan Post-Procedure Diagnosis: same Type of anesthesia: None Special Medications: pitocin hemabate magnesium sulfate Estimated Blood Loss: 300 Findings Description of procedure: Patient began pushing and delivered the head in the JOSEE presentation. The head was delivered atraumatically and a loose nuchal cord ?1 was identified and easily reduced over the 's head. The anterior and posterior shoulders delivered without complication followed by the rest of the and the was placed on the maternal abdomen. Delayed cord clamping was employed for approximately 60 seconds. Cord was clamped and cut and gentle traction was applied to the cord and the placenta delivered spontaneously immediately following it was noted to be intact with three-vessel cord. The perineum and vagina were inspected and noted to have no laceration. EBL was 300 with mild atony given pitocin hemabat and massage. Patient and infant tolerated delivery well. Presentation: Vertex Placental Delivery Description: Spontaneous Specimen collected: Yes Description of specimen(s) removed: placenta Top Screw machinery dismantler: No Post Vaginal Deli Medications given after delivery: Other (pitocin) Complication Complications: No Multi Select Codes Urinary/Genital Urinary/Genital CPT Codes: 82214 Vaginal Delivery [facility]
--- NOTE | 2025-05-09 23:50 | DCINST_ITS ---
Discharge Instructions DC O2, CPAP, BIPAP needs Home O2 Discharge instructions: No Dressing / Incision Discharge Activity: Return to Normal Activity, May Not Drive (while taking narcotic pain medications.) and May Shower May resume sexual activity in: 4-6 weeks Dressing / Incision Call your doctor if your incision/area has: Continuous Slow Oozing, Sudden Increased Bleeding, Increased Pain/ Swelling, Increased Redness and Foul Smelling Discharge Follow Up Care Please Follow Up With: Abby Cash MD When: Call [phone] to make an appointment with your doctor in 6 weeks. If you had elevated blood pressure or 4th degree laceration, you will need to be seen in 2 weeks. Test Results: Test results from this visit will be discussed in further detail at your follow- up appointment, if applicable. Discharge Plan Admission Admit Date/Time: 05/09/25 08:05 Attending Provider: Abby Cash Primary Care Provider: Rachel Bryant Discharge Orders/Prescriptions Prescriptions: No Action PNV-[place] 28-1-300 mg capsule 1 cap PO DAILY labetalol 200 mg tablet 100 mg PO TID aspirin 81 mg tablet 81 mg PO QDAY Referrals / Follow Up: Rachel Bryant, [employer] [Primary Care Provider] -
[2025-05-10] VITALS (45 sets, daily range): BP systolic 119–152; BP diastolic 75–104; PULSE 67–100; RESP 16–18; TEMP 36.2–36.8; O2SAT 96–100
[2025-05-10] MEDS: Oxytocin 15 Units/NS 250ml 15 UNITS/250 ML IV.SOLN 83 UNITS IV
--- NOTE | 2025-05-10 03:56 | NURSING ---
SM discontinued mag sulfate order when pt delivered. order did not get transferred for , even though verbal order received for 1gm continuous. RN placed new order for magnesium sulfate for . it appears Blaise RN scanned new bag at 1930, but it was just being continued from the same bag. pharmacy aware of this order change. no further needs noted.
[2025-05-10 06:38] LABS: Hematocrit 28.0 % (37-47); Hemoglobin 10.2 g/dL (12.0-15.0); Immature Granulocytes Count 0.120 X10^3/uL (0.0-0.0); Mean Corp Hgb Conc 36.4 g/dL (32-36); Mean Corpuscular Volume 93.0 fL (81-99); Mean Platelet Vol. 9.3 fl (6.2-12.0); NRBC Flagged by Analyzer 0 % (0-5); Platelet Count 181 K/mm3 (150-450); RBC Distribution Width CV 13.7 % (11.6-14.6); RBC Distribution Width SD 45.3 fl (35.1-43.9); Red Blood Count 3.01 M/mm3 (4.2-5.4); White Blood Count 15.9 K/mm3 (4.4-11.0)
[2025-05-10 07:03] LABS: AST(SGOT) 24 U/L (<=31); Alanine Aminotransfer ALT/SGPT 18 U/L (<=34); Albumin, Serum 3.4 g/dL (3.5-5.0); Alkaline Phosphatase 138 U/L (35-104); Anion Gap 11 (5-15); BUN 7 mg/dL (4-19); BUN/Creat Ratio 9.4 RATIO (10-20); Calcium,Total 8.3 mg/dL (7.6-11.0); Carbon Dioxide 19.2 mmol/L (21.0-32.0); Chloride 102 mmol/L (98-108); Estimated Creatinine Clearance 116.54 ml/min (50-250); Globulin 2.5 g/dL (2.2-4.2); Glucose 110 mg/dL (70-99); Potassium 4.3 mmol/L (3.3-5.1)
--- NOTE | 2025-05-10 10:37 | PN.OBGYN_ITS ---
Subjective Subjective Patient doing well without complaints. Tolerating PO. Ambulating and voiding without difficulty. feeding well. Denies chest pain, shortness of breath, calf pain/swelling, fevers, chills. Objective Data Objective Data Vital Signs: Vital Signs Temp Pulse Resp BP Pulse Ox O2 Del Method 97.6 F L 83 16 120/75 97 Room Air 05/10/25 09:50 05/10/25 09:50 05/10/25 09:50 05/10/25 09:50 05/10/25 09:50 05/10/25 09:50 Oxygen Delivery Method Room Air Weight: 199 lb 8.293 oz Body Mass Index (BMI) 35.3 Intake & Output: Intake and Output for Last 24 Hours 05/08/25 05/09/25 05/10/25 23:59 23:59 23:59 Intake Total 1429.33 / 2237.66 1360.00 / 1360.00 Output Total 1000 / 1100 1000 / 1000 Balance 429.33 / 1137.66 360.00 / 360.00 Lab / Micro Data 05/10/25 06:30 05/10/25 06:30 Labs: Laboratory Results - last 24 hr 05/09/25 19:50: WBC 11.7 H, RBC 3.32 L, Hgb 10.8 L, Hct 30.9 L, MCV 93.1, MCH 32.5 H, MCHC 35.0, RDW Std Deviation 46.4 H, RDW Coeff of Kalin 13.7, Plt Count 213, MPV 9.4, Immature Gran % (Auto) 1.400 H, Neut % (Auto) 75.9 H, Lymph % (Auto) 13.8 L, [place] % (Auto) 6.3, Eos % (Auto) 2.4, Baso % (Auto) 0.2, Absolute Neuts (auto) 8.9 H, Absolute Lymphs (auto) 1.61, Nucleated RBC % 0, Sodium 136, Potassium 4.2, Chloride 104, Carbon Dioxide 20.6 L, Anion Gap 11, BUN 7, Creatinine 0.71, Estim Creat Clear Calc 121.47, Est GFR (MDRD) Non-Af 116, BUN/Creatinine Ratio 10.2, Glucose 86, Calcium 9.6, Total Bilirubin 0.54, AST 23, ALT 15, Alkaline Phosphatase 156 H, Total Protein 6.6, Albumin 3.9, Globulin 2.8, Albumin/Globulin Ratio 1.4 05/10/25 06:30: WBC 15.9 H, RBC 3.01 L, Hgb 10.2 L, Hct 28.0 L, MCV 93.0, MCH 33.9 H, MCHC 36.4 H, RDW Std Deviation 45.3 H, RDW Coeff of Kalin 13.7, Plt Count 181, MPV 9.3, Immature Gran % (Auto) 0.800, Neut % (Auto) 88.7 H, Lymph % (Auto) 6.3 L, [place] % (Auto) 3.8, Eos % (Auto) 0.3, Baso % (Auto) 0.1, Absolute Neuts (auto) 14.1 H, Absolute Lymphs (auto) 1.00, Nucleated RBC % 0, Sodium 133, Potassium 4.3, Chloride 102, Carbon Dioxide 19.2 L, Anion Gap 11, BUN 7, Creatinine 0.74, Estim Creat Clear Calc 116.54, Est GFR (MDRD) Non-Af 111, B UN/Creatinine Ratio 9.4 L, Glucose 110 H, Calcium 8.3, Total Bilirubin 0.54, AST 24, ALT 18, Alkaline Phosphatase 138 H, Total Protein 5.9, Albumin 3.4 L, Globulin 2.5, Albumin/Globulin Ratio 1.4 05/10/25 09:51: POC Glucose 76 ROS Constitutional Constitutional: Reports systems reviewed and no addt'l complaints, except as documented Cardiovascular Cardiovascular: Reports systems reviewed and no addt'l complaints, except as documented Respiratory/Chest Respiratory/Chest: Reports systems reviewed and no addt'l complaints, except as documented Gastrointestinal Gastrointestinal: Reports systems reviewed and no addt'l complaints, except as documented Physical Exam Const alert, oriented x3 and no apparent distress HEENT Head and Scalp: atraumatic Resp normal respiratory effort GI soft to palpation and non-tender Bimanual Exam - Vag & Uterus: uterus non-tender Uterus Palpation: uterus fundus firm (below Umbilicus) Assessment & Plan (1) Vaginal delivery: COMMENT: sm iol chtn girl santana (2) Anemia in preg-unspec: QUALIFIERS: Trimester: second trimester Qualified Code(s): O 99.012 - Anemia complicating , second trimester COMMENT: SlowFe (3) Chronic hypertension affecting : COMMENT: increased labetalol to 200mg Tid caused near syncope. Can't swallow procardia. Labetalol 100mg tid. RTO 1 wk BP check. MFM consult. Misses doses/discussed importance. No headache/vision changes. baseline pec labs asa 81mg at 10 weeks. 32 wk:NST and BPP weekly plus Growth Q4wk mfm for anatomy;03/31: 32 w US:96% AC, 84% EFW 03/31:vomited labetalol. Will repeat dose and call BP readings:132/83 36w EFW 74%, AC 92% (4) Rh negative status during : QUALIFIERS: Trimester: second trimester Qualified Code(s): O 26.892 - Other specified related conditions, second trimester; Z67.91 - Unspecified blood type, Rh negative COMMENT: Rhogam @ 28 wks & PRN Bleeding. Baby is Rh- per Stephy results PLAN: Plan s/p PPD # 1 1. routine post delivery care 2. breast feeding- support given 3. rh negative- baby was rh negative on NIPT 4. rubella immune dc mag at 12 hours, continue labetalol. labs stable
[2025-05-10] MEDS: 0.9% Saline Lock 10 ML Syringe IV (11:30)
[2025-05-11] VITALS (8 sets, daily range): BP systolic 126–136; BP diastolic 82–88; PULSE 67–87; RESP 16–17; TEMP 36.7–36.8; O2SAT 96–100
--- NOTE | 2025-05-11 08:57 | PCM.PN.CNM ---
Objective Data Objective Data Patient doing well without complaints. Tolerating PO. Ambulating and voiding without difficulty. Feeding well. Denies chest pain, shortness of breath, calf pain/swelling, fevers, chills, lightheadedness. Vital Signs: Vital Signs Temp Pulse Resp BP Pulse Ox O2 Del Method 98.1 F 67 17 136/88 H 96 Room Air 05/11/25 02:00 05/11/25 06:14 05/11/25 02:00 05/11/25 06:14 05/11/25 02:00 05/11/25 02:00 Oxygen Delivery Method Room Air Weight: 199 lb 8.293 oz Body Mass Index (BMI) 35.3 Intake & Output: Intake and Output for Last 24 Hours 05/09/25 05/10/25 05/11/25 23:59 23:59 23:59 Intake Total 1429.33 / 2237.66 1630.83 / 1630.83 Output Total 1000 / 1100 1000 / 1000 Balance 429.33 / 1137.66 630.83 / 630.83 Lab / Micro Data Attestation: I reviewed the patient's lab results. 05/10/25 06:30 05/10/25 06:30 Labs: Laboratory Results - last 24 hr 05/10/25 09:51: POC Glucose 76 ROS Constitutional Constitutional: Reports systems reviewed and no addt'l complaints, except as documented ENT HEENT: Reports systems reviewed and no addt'l complaints, except as documented Cardiovascular Cardiovascular: Reports systems reviewed and no addt'l complaints, except as documented Respiratory/Chest Respiratory/Chest: Reports systems reviewed and no addt'l complaints, except as documented Gastrointestinal Gastrointestinal: Reports systems reviewed and no addt'l complaints, except as documented Physical Exam Const alert, oriented x3, no apparent distress, average body habitus, no limitations, healthy appearing and well nourished HEENT normocephalic, head/scalp atraumatic, hearing grossly normal bilaterally, external ears normal, EAC's normal and moist oral mucous membranes Resp normal respiratory effort and normal air movement Resp Narrative: Respirations Eased & unlabored. GI soft to palpation, non-tender and non-distended Uterus Palpation: uterus fundus firm (Midline, firm, u/1, small amount of dark red lochia. No odor. )
--- NOTE | 2025-05-11 12:30 | CASEMGMT ---
Social Work Assessment Labor and Delivery Unit Patient Address: [address] [place], [place] [address] Phone number:[phone] Date of Referral: 05/09/25 Time of Referral: 09:14 Referred By: Abby Cash Date of Intervention: 05/11/25 Time of Intervention: 12:30 Reason for Referral: Patient?s father is an alcoholic History obtained from: Medical records, mother of baby (MOB) and father of baby (FOB).? Household composition: MOB, FOB (Dave Tail, age 34) MOB?s 2 sons, Serge, age 10 and Dominic, age 8 and MOB and FOB?s daughter, Celestina Martinez, born on 05/09/25. MOB reported she shares custody of her sons with their father so Serge and Dominic are with the MOB half of the time and are with their father the other half of the time. Patient's parent/guardian status: MOB and FOB have been together for almost 3 and a half years and are not .? MOB reported that she and the FOB have been best friends since childhood. ???MOB denied any previous or current issues of domestic violence and described a positive relationship with the FOB. MOB denied any other children with either herself or the FOB. ? Medical History: : 5, Para, now 4. GALINA has a SAB in 2020 and was a surrogate and delivered on 11/08/2019. MOB received care (PNC) through [place] beginning at 8 weeks and 2 days. Visits were noted to be routine. Apgars: 8 and 9. Weight: 7lbs, 14oz. Medical Device: [facility] Riki Gerber through [facility]. Educational Status: MOB denied any issues either with herself or with the FOB in regards to difficulty with reading, writing or learning comprehension. MOB attended some college earned more than one ?certification and the FOB earned his high school diploma. Financial Status: MOB reported that their income is sufficient to meet the needs of their family at this time. 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 MOB gets 4 months of maternity leave. FOB works full-time as a motion picture equipment machinist. Supplies: MOB reported they have the supplies they need for baby at this time including but not limited to: Car seat, bassinet, crib, diapers, bottles, breast pump (in progress through the hospital and insurance) and clothing. Childcare/Caregiver(s): MOB reported that newborns maternal grandmother (MGM), paternal grandmother (PGM) and FOB?s brother?s fianc? who is a mdmd-fc-wvre mom (SAHM). MOB reported she also plans on securing a local back up childcare provider in case it?s ever needed. Transportation: Both MOB and FOB are licensed drivers and have a reliable vehicle to get baby to and from all medical appointments. MOB denied any issues/barriers to transportation at this time. Programs/Agencies Involved: MOB has WIC and the FOB has a mental health therapist that he see?s in [place].? MOB not sure of the name tacho the therapist or agency. Children Services/Legal Issues: MOB denied any history of Children Services involvement. MOB denied any previous or current legal involvement. Behavioral Health Issues:? Mental Health History: ?MOB denied any history of mental health however reported that the FOB has a history of anxiety and depression and is currently on medication to treat symptoms.? MOB reported that between the medication and mental health therapist, symptoms are effectively managed at this time. ?Substance Use History:?? MOB denied any previous or current alcohol abuse either with herself or with the FOB. MOB reported she used to smoke cigarettes when she was ?young and dumb? . MOB reported she smoked for a few years beginning at the age of 16. ?Family History:?? MOB?s side of the family: MOB?s mother has a history of anxiety and depression. MOB?s father is an alcoholic, and MOB?s mother used to be an alcoholic however has been sober for ?quite a few years?. FOB?s mother has a history of PTSD and Bipolar but is medicated and symptoms are managed. FOB?s father from alcoholism.? Drug Screens: Not obtained during this admission. ? Family/Social Stressors:?? Denied. Support Systems: MOB identified her biggest support as the FOB, ?s MGM, PGM, ?s maternal uncle and his fianc?, and ?s maternal aunt. Depression/Shaken Baby/Safe Sleeping: Associate Professor [employer] provided verbal and written education on PPD, risk factors for PPD, Safe Sleeping and Shaken Baby.? MOB verbalized an understanding.??? ASSESSMENT: MOB provided consent to social work visit. Upon arrival, the MOB was sitting upright in the hospital bed holding and the FOB was laying on a nearby couch in what appeared to be a deep sleep as the FOB had a CPAP machine on and was snoring throughout the assessment. MOB was verbally engaged, smiled often and appeared to be attached and bonded ?to . MOB was observed being very gentle and attentive to . ?MOB reported feeling safe in her home and denied any previous or current domestic violence, unmanaged mental health issues either with herself or with the FOB, and also denied any concerns with drug or alcohol abuse either with herself or with the FOB as well as any unmanaged mantal health concerns. Safe Plan of Care for infant related to substance use: Not needed at this time. PLAN: For MOB and baby to be discharged when medically ready. No other services requested or indicated. Tiffanie Patel, CERAMIC WORKER, SCUTCHER TENDER
[2025-05-11] MEDS: Prenatal Vits Tablet 1 TABLET PO (13:02)
== END 2025-05-11 14:45 | disposition home or self-care (01) | DRG 807 ==
PROVIDERS: Admitting Provider Obstetrics & Gynecology; PCP Nurse Practitioner Family; Visit Provider Obstetrics & Gynecology
DX: O10.92 Unspecified pre-existing hypertension complicating childbirth (principal); Z37.0 Single live birth; E66.9 Obesity, unspecified; D64.9 Anemia, unspecified; O75.89 Other specified complications of labor and delivery; O99.214 Obesity complicating childbirth; O77.0 Labor and delivery complicated by meconium in amniotic fluid; O99.02 Anemia complicating childbirth; Z3A.37 37 weeks gestation of pregnancy; Z79.82 Long term (current) use of aspirin; Z87.891 Personal history of nicotine dependence
CPT/HCPCS: 59025; 59050; 80053; 82962; 85025; 86780; 86850; 86900; 86901; 99221; A4216; G0378

== ENCOUNTER → 2025-09-19 | Outpatient (CLI) | payer OTHER, SELFPAY ==
[2025-09-19 09:07] LABS: Hematocrit 37.0 % (37-47); Hemoglobin 13.6 g/dL (12.0-15.0); Immature Granulocytes Count 0.010 X10^3/uL (0.0-0.0); Mean Corp Hgb Conc 36.8 g/dL (32-36); Mean Corpuscular Volume 86.0 fL (81-99); Mean Platelet Vol. 8.9 fl (6.2-12.0); NRBC Flagged by Analyzer 0 % (0-5); Platelet Count 237 K/mm3 (150-450); RBC Distribution Width CV 12.3 % (11.6-14.6); RBC Distribution Width SD 38.8 fl (35.1-43.9); Red Blood Count 4.30 M/mm3 (4.2-5.4); White Blood Count 6.1 K/mm3 (4.4-11.0)
--- OUTSIDE RECORDS SUMMARY | 2025-09-19 09:14 | XMS RPT_ITS | CCD ---
Author Organization [facility] Care Team Providers Care Commodities Trader Name Role Phone Marleen Bynum CNP E Unavailable Leatha Dubon Unavailable Crista Marquez LPN Unavailable Unavailable Unavailable Unavailable Silvano OR NURSE MANAGER, OR NURSE MANAGER-C Micheline Primary Care Provider [phone] Silvano OR NURSE MANAGER, OR NURSE MANAGER-C Micheline Referring Provider [phone] CORINNA Gamboa Attending Provider Dr. Abby Carreon Attending Provider Sunny OR NURSE MANAGER, OR NURSE MANAGER-C Antony Attending Provider [phone] Cristhiana, Marleen Unavailable KIT KAUR MD Admitting Unavailable PHYSICIAN, PATIENT UNSURE Primary Care Lorri KAPLAN MD, LUIS FELIPE Consulting Unavailable KIT KAUR MD Attending Unavailable ISAURO PALMER Attending Unavailable PHYSICIAN, PATIENT UNSURE Primary Care Lorri KAUR MD, KIT Consulting Unavailable Sameeraesa, Marleen Unavailable Ciesa, Marleen Unavailable Unavailable Ciesa, Marleen Unavailable Trina Heaton MA Unavailable Unavailable Rachel Bryant CNP Unavailable [phone] Sameerarobea Marleen Attending Unavailable Sameeraesa, Marleen Consulting Unavailable Manny JOEL Rachel Unavailable [phone] Silvano TEJADA-CMicheline Primary Care Provider [phone] Joyce Bolanos CNM Attending Provider [phone] Joyce Bolanos CNM Referring Provider [phone] Silvano TEJADA-C, Micheline Referring Provider [phone] Sahara Frances CNM Attending Provider [phone] Sahara Frances CNM Referring Provider [phone] Shreya CARPENTER, Dr. Mora Attending Provider Dr. Tiffanie Lepe DO Attending Provider Assessment, Health Risk Attending Provider Unava ilable Sunny OR NURSE MANAGER-C, Antony Attending Provider [phone] Sunny OR NURSE MANAGER-C, Antony Referring Provider [phone] Shreya CARPENTER, Dr. Mora Referring Provider Manny OR NURSE MANAGER-C, Rachel Primary Care Provider [phone] Dr. Tiffanie Lepe DO Referring Provider Silvano OR NURSE MANAGER-C, Micheline Primary Care Provider [phone] Silvano OR NURSE MANAGER-C, Micheline Referring Provider [phone] Dr. Abby Carreon MD Attending Provider [phone] Joyce Bolanos CNM Attending Provider [phone] Manny OR NURSE MANAGER-C, Rachel Referring Provider [phone] [place] OR NURSE MANAGER-C, Micheline Primary Care Provider [phone] Silvano OR NURSE MANAGER-C, Micheline Referring Provider [phone] Dr. Tiffanie Lepe DO Attending Provider Sivlano OR NURSE MANAGER-C, Micheline Primary Care Provider [phone] Silvano OR NURSE MANAGER-C, Micheline Referring Provider [phone] [place] OR NURSE MANAGER-C, Antony Attending Provider [phone] [place] OR NURSE MANAGER-C, Antony Referring Provider [phone] Dr. Abby Carreon MD Attending Provider [phone] Dr. Abby Carreon MD Referring Provider [phone] Silvano OR NURSE MANAGER-C, Micheline Referring Provider [phone] ABBY CARREON Primary Care Unavailabl e ANTONY CORREA S Referring Unavailable CARRIE JONES Attending Unavailable ABBY CARREON Primary Care Unavailabl e ANANTH FAIRCHILD Attending Unavailable TIFFANIE LOWERY Referring Unavailab ANANTH Ruiz Attending Unavailable TIFFANIE LOWERY Referring Unavailab le ABBY CARREON Primary Care Unavailabl e Manny OR NURSE MANAGER-C, Rachel Primary Care Provider [phone] Shreya CARPENTER, Dr. Mora Attending Provider Shreya CARPENTER, Dr. Mora Referring Provider Manny OR NURSE MANAGER-C, Rachel Primary Care Provider [phone] Joyce Bolanos CNM Referring Provider [phone] Joyce Bolanos CNM Other Provider [phone] Shreya CARPENTER, Dr. Mora Attending Provider Silvano OR NURSE MANAGER-C, Micheline Referring Provider [phone] Manny OR NURSE MANAGER-C, Rachel Primary Care Provider [phone] Laura Bey DO, Dr. Moreno Attending Provider Laura Bey DO, Dr. Moreno Referring Provider Shreya CARPENTER, Dr. Mora Admit Provider [phone] Shreya CARPENTER, Dr. Mora Attending Provider Dr. Abby Carreon MD Other Provider [phone] Narcisa Luciano CNM Attending Provider Unavaila ble Manny OR NURSE MANAGER-C, Rachel Primary Care Provider [phone] Joyce Bolanos CNM Attending Provider [phone] Manny OR NURSE MANAGER-C, Rachel Primary Care Physician [phone] Sunny OR NURSE MANAGER-CAntony Attending Physician [phone] Manny OR NURSE MANAGER-C, Rachel Referring Provider Joyce Bolanos CNM Attending Physician [phone] Tiffanie Lepe DO Attending Physician Joyce Bolanos CNM Nurse Practitioner [phone] Shreya CARPENTER, Dr. Mora Admitting Physician Shreya CARPENTER, Dr. Mora Attending Physician Shreya CARPENTER, Dr. Mora Nurse Practitioner Narcisa Luciano CNM Attending Physician Unavail able Manny, Rachel Referring Unavailable Manny, Rachel Primary Care Unavailable Joyce Bolanos Attending Unavailable Manny, Rachel Referring Unavailable Joyce Bolanos Attending Unavailable Manny, Rachel Primary Care Unavailable Manny, Rachel Primary Care Unavailable Manny, Rachel Referring Unavailable Sunny OR NURSE MANAGER, Antony Attending Unavailable Manny, Rachel Primary Care Unavailable Joyce Bolanos Attending Unavailable Silvano OR NURSE MANAGER, Micheline Referring Unavailable Manny, Rachel Referring Unavailable Tiffanie Lepe Attending Unavailabl e Manny, Rachel Primary Care Unavailable Sunny OR NURSE MANAGER, Antony Attending Unavailable Silvano OR NURSE MANAGER, Micheline Primary Care Unavailable [place] OR NURSE MANAGER, Micheline Referring Unavailable Joyce Bolanos Attending Unavailable Joyce Bolanos Referring Unavailable Manny, Rachel Primary Care Unavailable Tiffanie Lepe Attending Unavailabl e Manny, Rachel Primary Care Unavailable Manny, Rachel Referring Unavailable Joyce Bolanos Attending Unavailable Manny, Rachel Primary Care Unavailable Joyce Bolanos Attending Unavailable Manny, Rachel Primary Care Unavailable Manny, Rachel Referring Unavailable Manny, Rachel Referring Unavailable Joyce Bolanos Attending Unavailable Manny, Rachel Primary Care Unavailable Abby Carreon Attending Unavailable MarcanthonyAbby Referring Unavailable Manny, Rachel Primary Care Unavailable AmeeonyAbby Referring Unavailable MarcanthonyAbby Attending Unavailable Manny, Rachel Primary Care Unavailable Manny, Rachel Primary Care Unavailable Joyce Bolanos Attending Unavailable Silvano OR NURSE MANAGER, Micheline Primary Care Unavailable Abby Carreon Attending Unavailable MarcanthonyAbby Referring Unavailable MarcanthonyAbby Referring Unavailable MarcanthonyAbby Attending Unavailable Silvano OR NURSE MANAGER, [facility] Primary Care Unavailable Manny, Rachel Referring Unavailable Manny, Rachel Primary Care Unavailable Tiffanie Lepe Attending Unavailabl e MarcanthAbby qiu Attending Unavailable MarcanthonyAbby Admitting Unavailable Manny, Rachel Primary Care Unavailable Abby Carreon Attending Unavailable Abby Carreon Consulting Unavailable Abby Carreon Admitting Unavailable Manny, Rachel Primary Care Unavailable Narcisa Luciano Attending Unavailable [place] OR NURSE MANAGER, [facility] Primary Care Unavailable Joyce Bolanos Attending Unavailable Joyce Bolanos Referring Unavailable Sunny OR NURSE MANAGER, Antony Referring Unavailable [place] OR NURSE MANAGER, Antony Attending Unavailable [place] OR NURSE MANAGER, [facility] Primary Care Unavailable [facility] Primary Care Unavailable [place] OR NURSE MANAGER, Antony Attending Unavailable Sunny OR NURSE MANAGER, Antony Referring Unavailable Frances, Sahara Referring Unavailable Silvano OR NURSE MANAGER, [facility] Primary Care Unavailable Sahara Frances Attending Unavailable Joyce Bolanos Attending Unavailable Joyce Bolanos Referring Unavailable Silvano OR NURSE MANAGER, [facility] Primary Care Unavailable Sunny OR NURSE MANAGER, Antony Referring Unavailable [place] OR NURSE MANAGER, Antony Attending Unavailable [facility] Primary Care Unavailable [facility] Primary Care Unavailable Vande Velde, Tiffanie Referring Unavailabl e Vande Velde, Tiffanie Attending Unavailabl e [place] OR NURSE MANAGER, [facility] Care Unavailable Assessment, Health Risk Attending Unavaila ble Joyce Bolanos Referring Unavailable [facility] Primary Care Unavailable Joyce Bolanos Attending Unavailable [place] OR NURSE MANAGER, Antony Attending Unavailable Silvano OR NURSE MANAGER, [facility] Care Unavailable [place] OR NURSE MANAGER, Micheline Referring Unavailable [facility] Primary Care Unavailable Vande Velde, Tiffanie Referring Unavailabl e Vande Velde, Tiffanie Attending Unavailabl e Silvano OR NURSE MANAGER, [facility] Care Unavailable Abby Carreon Attending Unavailable [place] OR NURSE MANAGER, Micheline Referring Unavailable [facility] Primary Care Unavailable Manny, Rachel Referring Unavailable Vande Velde, Tiffanie Attending Unavailabl e [facility] Primary Care Unavailable Manny, Rachel Referring Unavailable Vande Velde, Tiffanie Attending Unavailabl e Silvano OR NURSE MANAGER, [facility] Care Unavailable Abby Carreon Attending Unavailable [place] OR NURSE MANAGER, Micheline Referring Unavailable FrancesSahara Attending Unavailable Silvano OR NURSE MANAGER, Micheline Referring Unavailable [place] OR NURSE MANAGER, [facility] Primary Care Unavailable [facility] Primary Care Unavailable Manny, Rachel Referring Unavailable Sunny OR NURSE MANAGER, Antony Attending Unavailable Joyce Bolanos Attending Unavailable Joyce Bolanos Consulting Unavailable Joyce Bolanos Referring Unavailable [facility] Rachel Primary Care Unavailable Manny, Rachel Primary Care Unavailable Manny, Rachel Referring Unavailable Joyce Bolanos Attending Unavailable Sunny OR NURSE MANAGER, Antony Attending Unavailable [place] OR NURSE MANAGER, [facility] Primary Care Unavailable [place] OR NURSE MANAGER, Micheline Referring Unavailable Rachel Bryant Referring Unavailable Tiffanie Lepe Attending UnavailRachel Villanueva Primary Care Unavailable Silvano TEJADA, Micheline Primary Care Unavailable Tiffanie Lepe Attending Unavailradha Schaefer NP, Micheline Referring Unavailable Rachel Bryant Primary Care Unavailable Silvano TEJADA, Micheline Referring Unavailable Tiffanie Lepe Attending UnavailRachel Villanueva Referring Unavailable Joyce Bolanos Attending Unavailable Rachel Bryant Primary Care Unavailable Rachel Bryant Referring Unavailable Joyce Bolanos Attending Unavailable Rachel Bryant Primary Care Unavailable Medications Current Medications Medication Drug Class(es) Dates Sig (Normalized) Sig (Original) aspirin 81 mg oral tablet (20 sources) Platelet Aggregation Inhibitor, Nonsteroidal Anti-inflammatory Drug Start: 04-21-2025 take 1 tablet by mouth once daily Start: 02-04-2019 End: 12-14-2020 Aspirin (Chuck Low Dose Aspi rin) 81 mg tablet,delayed release (DR/EC) Discontinued 81 mg PO DAILY February 04, 2019 12:00am December 14, 2020 12:18pm cholecalciferol 0.05 mg chewable tablet (2 sources) Vitamin D Start: 06-19-2025 take 1 tablet by mouth once daily labetalol hydrochloride 200 mg oral tablet (20 sources) beta-Adrenergic Liz Start: 05-20-2025 Start: 10-25-2024 End: 05-20-2025 Labetalol 200 mg tablet Disc ontinued 100 mg PO THREE TIMES A DAY October 25, 2024 2:56pm May 20, 2025 1:51pm elevated BP Start: 10-18-2024 End: 10-25-2024 take 1 tablet by mouth twice daily Labetalol 200 mg tablet Discontinued 200 mg PO TWICE A DAY 120 6 October 18, 2024 1:00am October 25, 2024 2:57pm Start: 04-10-2024 End: 10-18-2024 take 1 tablet by mouth twice daily Labetalol 100 mg tablet Discontinued 100 mg PO TWICE A DAY April 10, 2024 3:39pm October 18, 2024 12:40pm Start: 07-25-2023 take 1 tablet by jan three times daily labetaloL 100 mg oral tablet 1 (one) Tablet three times daily for 30 days Quantity: 90 {Tablet} Refills: 1 Ordered: 25-Jul-2023 Manny WISAMDonnayn Start : 25-Jul-2023 Active Start: 02-15-2023 take 1 tablet by jan th three times daily labetaloL 100 mg oral tablet 1 (one) Tablet three times daily for 30 days Quantity: 90 {Tablet} Refills: 3 Ordered: 15-Feb-2023 Manny Rachel JOEL Start : 15-Feb-2023 Active Start: 11-18-2022 take 1 tablet by jan th three times daily labetaloL 100 mg oral tablet 1 (one) Tablet three times daily for 30 days Quantity: 90 {Tablet} Refills: 3 Ordered: 22-Nov-2022 Manny Rachel JOEL Start : 22-Nov-2022 Active Start: 11-11-2022 take 1 tablet by jan three times daily labetaloL 100 mg oral tablet 1 (one) Tablet three times daily for 30 days Quantity: 60 {Tablet} Refills: 1 Ordered: 11-Nov-2022 Manny Rachel JOEL Start : 11-Nov-2022 Active Start: 07-25-2022 End: 04-10-2024 take 1 tablet by mouth three times daily Labetalol 100 mg tablet Discontinued 100 mg PO THREE TIMES A DAY July 25, 2022 1:07pm April 10, 2024 3:40pm Start: 09-28-2021 End: 07-25-2022 take 1 tablet by mouth twice daily Labetalol 100 mg tablet Discontinued 100 mg PO TWICE A DAY October 11, 2021 1:00am July 25, 2022 1:07pm Mv-Mins 50-Tssv-Gxdsn No.1-D remy ([facility]-[place]) 28-1-300 mg capsule (20 sources) Start: 10-10-2024 Start: 10-10-2024 Mv-Mins 71-Iro n-Folic No.1-Dha ([facility]) 28-1-300 mg capsule Active 1 NMA PO DAILY October 10, 2024 1:00am vitamin Start: 10-10-2024 Mv-Mins 71-Iro n-Folic No.1-Dha ([facility]) 28-1-300 mg capsule Active 1 NMA PO DAILY October 10, 2024 1:00am Start: 10-10-2024 Mv-Mins 71-Iro n-Folic No.1-Dha ([facility]-[place]) 28-1-300 mg capsule Active NMA PO October 10, 2024 1:00am Completed/Discontinued Medications Medication Drug Class(es) Dates Sig (Normalized) Sig (Original) amLODIPine 5 mg / valsartan 160 mg oral tablet (19 sources) Dihydropyridine Calcium Channel Liz, Angiotensin 2 Receptor Liz Start: 09-28-2021 End: 09-28-2021 take 1 tablet by mouth once daily amLODIPine Besylate-Valsartan 5-160 MG Oral Tablet 1 (one) Tablet daily for 0 days Quantity: 30 {Tablet} Refills: 1 Ordered: 28-Sep-2021 Marleen Bynum Start : 28-Sep-2021 End : 28-Sep-2021 Inactive amoxicillin 500 mg oral capsule (20 sources) Penicillin-class Antibacterial Start: 10-17-2019 End: 10-27-2019 take 1000 mg by mouth twice daily Amoxicillin Discontinued 1000 MG PO TWICE A DAY 40 10 October 17, 2019 7:34am October 27, 2019 1:08am Start: 10-17-2019 End: 10-27-2019 take 2 capsules by mouth twice daily Amoxicillin 500 mg capsule Discontinued 1000 mg PO TWICE A DAY 40 10 0 October 17, 2019 1:00am October 26, 2019 1:00am October 27, 2019 1:08am cephalexin 500 mg oral capsule (20 sources) Cephalosporin Antibacterial Start: 05-05-2018 End: 02-04-2019 take 1 capsule by mouth every six hours Cephalexin 500 MG capsule Discontinued 500 mg PO EVERY 6 HOURS 40 0 May 05, 2018 12:00am February 04, 2019 10:16am clotrimazole 10 mg/ml topical cream (20 sources) Azole Antifungal Start: 01-15-2020 End: 02-04-2020 Clotrimazole 1 % cream Discontinued 1 NMA TOPICAL TWICE A DAY 30 14 2 January 15, 2020 12:00am February 04, 2020 10:37am Desogestrel-Ethinyl Estradiol (20 sources) Progestin, Estrogen Start: 04-10-2020 End: 12-14-2020 Desogestrel-Ethiny l Estradiol (Apri) 0.15-0.03 mg tablet Discontinued 1 TABLET PO DAILY April 10, 2020 4:38pm December 14, 2020 12:25pm Start: 04-10-2020 End: 12-14-2020 take 0.15 tablet by mouth once daily Desogestrel-Ethinyl Estradiol (Apri) 0.15-0.03 mg tablet Discontinued 1 {tbl} PO DAILY 19 10April 10, 2020 12:00am December 14, 2020 12:25pm Start: 04-10-2020 End: 12-14-2020 take 0.15 tablet by mouth once daily Desogestrel-Ethinyl Estradiol (Apri) 0.15-0.03 mg tablet Discontinued 1 {tbl} PO DAILY April 10, 2020 12:00am December 14, 2020 12:25pm Drospirenone (Contraceptive) (20 sources) Progestin Start: 01-10-2022 End: 02-25-2022 take 1 tablet by mouth once daily Drospirenone (Contraceptive) Discontinued 1 TABLET PO DAILY January 10, 2022 1:28pm February 25, 2022 9:26am Start: 01-10-2022 End: 02-25-2022 take 1 tablet by mouth once daily Drospirenone (Contraceptive) 4 mg () tablet Discontinued 1 {tbl} PO DAILY January 10, 2022 12:00am February 25, 2022 9:26am 168 hr estradiol 0.84169 mg/hr transdermal system (20 sources) Estrogen Start: 02-04-2019 End: 04-30-2019 apply 1 dose transdermal route every week Estradiol Discontinued 1 PATCH TD EVERY WEEK February 04, 2019 10:18am April 30, 2019 2:29pm Start: 02-04-2019 End: 04-30-2019 Estradiol 0.05 mg/24 hr patc h weekly Discontinued 1 NMA TD EVERY WEEK February 04, 2019 12:00am April 30, 2019 2:29pm Levonorgestrel-Ethinyl Estrad (20 sources) Progestin, Estrogen, Progestin-containing Intrauterine Device Start: 10-11-2021 End: 12-20-2021 take 1 tablet by mouth once daily Levonorgestrel-Ethinyl Estrad (Aviane) 0.1-20 mg-mcg tablet Discontinued 1 TABLET PO daily October 11, 2021 2:25pm December 20, 2021 4:13pm Start: 10-11-2021 End: 12-20-2021 take 1 tablet by mouth once daily Levonorgestrel-Ethinyl Estrad (Aviane) 0.1-20 mg-mcg tablet Discontinued 1 {tbl} PO daily 19 10October 11, 2021 1:00am December 20, 2021 4:13pm Start: 10-11-2021 End: 12-20-2021 take 1 tablet by mouth once daily Levonorgestrel-Ethinyl Estrad (Aviane) 0.1-20 mg-mcg tablet Discontinued 1 {tbl} PO daily October 11, 2021 1:00am December 20, 2021 4:13pm famotidine 20 mg oral tablet (18 sources) Histamine-2 Receptor Antagonist Start: 03-12-2025 End: 04-21-2025 take 1 tablet by mouth twice daily Famotidine (Pepcid) 20 mg tablet Discontinued 20 mg PO TWICE A DAY 60 March 12, 2025 12:00am April 21, 2025 1:22pm ferrous sulfate 325 mg oral tablet (20 sources) Start: 10-17-2019 End: 12-14-2020 take 1 tablet by mouth once daily Ferrous Sulfate (Feosol) 325 mg (65 mg iron) tablet Discontinued 325 mg PO DAILY October 17, 2019 1:00am December 14, 2020 12:18pm fluconazole 150 mg oral tablet (20 sources) Azole Antifungal Start: 04-08-2025 End: 04-14-2025 Fluconazole 150 mg tablet Discontinued 150 mg PO Every 3 Days 2 0 April 08, 2025 12:00am April 14, 2025 11:48am Start: 02-04-2020 End: 12-14-2020 take 1 tablet by mouth once daily Fluconazole 200 mg tablet Discontinued 200 mg PO .COMPLEX 16 0 February 04, 2020 12:00am December 14, 2020 12:18pm 200 mg PO 2 tab po X 1 dose then 1 tab daily X 14 days; Leuprolide (20 sources) Gonadotropin Releasing Hormone Receptor Agonist Start: 02-04-2019 End: 04-30-2019 leuprolide 3.75 mg intramuscular Discontinued MG IM February 04, 2019 10:18am April 30, 2019 2:29pm Start: 02-04-2019 End: 04-30-2019 Leuprolide 3.75 mg injectabl e Discontinued mg IM 0 February 04, 2019 12:00am April 30, 2019 2:29pm Start: 02-04-2019 End: 04-30-2019 Leuprolide 3.75 mg injectabl e Discontinued mg IM February 04, 2019 12:00am April 30, 2019 2:29pm levonorgestrel 0.803989 mg/hr intrauterine system (20 sources) Progestin, Progestin-containing Intrauterine Device Start: 04-10-2024 End: 06-26-2024 Levonorgestrel (Liletta) 20.4 mcg/24 hr (8 yrs) 52 mg intrauterine device Discontinued 1 NMA INTRA-UTER ONCE April 10, 2024 12:00am June 26, 2024 11:09am as a single dose Start: 02-25-2022 End: 02-25-2022 levonorgestrel 20 mcg/24 pravin rs (6 yrs) 52 mg intrauterine device Discontinued 1 INSERT INTRA-UTER ONCE 1 February 25, 2022 9:24am February 25, 2022 1:23pm levothyroxine (20 sources) l-Thyroxine Start: 11-08-2019 End: 12-14-2020 take 1 capsule by mouth once daily Levothyroxine 25 mcg capsule Discontinued 25 ug PO DAILY November 08, 2019 10:54am December 14, 2020 12:20pm hypothyroidism Start: 11-08-2019 End: 12-14-2020 take 1 capsule by mouth once daily Levothyroxine 25 mcg capsule Discontinued 25 ug PO DAILY November 08, 2019 10:54am December 14, 2020 12:20pm Start: 11-08-2019 End: 12-14-2020 take 25 ug by mouth once daily Levothyroxine Discontin ued 25 MCG PO DAILY November 08, 2019 10:54am December 14, 2020 12:20pm Start: 04-30-2019 End: 11-08-2019 take 1 capsule by mouth once daily Levothyroxine 25 mcg capsule Discontinued 25 ug PO DAILY 30 May 09, 2019 10:12am November 08, 2019 10:54am lisinopril 5 mg oral tablet (20 sources) Angiotensin Converting Enzyme Inhibitor Start: 04-07-2023 End: 04-10-2024 take 1 tablet by mouth once daily Lisinopril 5 mg tablet Discontinued 5 mg PO DAILY April 07, 2023 12:00am April 10, 2024 3:39pm Start: 12-12-2022 take 1 tablet by jan th once daily lisinopriL 5 mg oral tablet 1 Tablet daily for 0 days Quantity: 30 {Tablet} Refills: 3 Ordered: 12-Dec-2022 Rachel Bryant CNP Start : 12-Dec-2022 Active Start: 10-18-2022 take 1 tablet by jan th once daily lisinopriL 5 mg oral tablet 1 Tablet daily for 0 days Quantity: 30 {Tablet} Refills: 3 Ordered: 22-Nov-2022 Rachel Bryant CNP Start : 22-Nov-2022 Active Start: 10-10-2022 take 1 tablet by jan th once daily lisinopriL 5 mg oral tablet 1 Tablet daily for 0 days Quantity: 30 {Tablet} Refills: 1 Ordered: 10-Oct-2022 Rachel Bryant CNP Start : 10-Oct-2022 Active losartan potassium 25 mg oral tablet (20 sources) Angiotensin 2 Receptor Liz Start: 12-14-2020 End: 10-11-2021 take 1 tablet by mouth once daily Losartan 25 mg tablet Discontinued 25 mg PO DAILY December 14, 2020 1:00am October 11, 2021 2:29pm NIFEdipine 30 mg osmotic 24 hr extended release oral tablet (20 sources) Dihydropyridine Calcium Channel Liz Start: 11-06-2024 End: 11-19-2024 take 1 tablet by mouth once daily Nifedipine (Procardia Xl) 30 mg tablet extended release 24hr Discontinued 30 mg PO daily November 06, 2024 1:00am November 19, 2024 10:00am norethindrone 0.35 mg oral tablet (20 sources) Start: 01-15-2020 End: 12-14-2020 take 1 tablet by mouth once daily Norethindrone (Contraceptive) (Ortho Micronor) 0.35 mg tablet Discontinued 0.35 mg PO DAILY 19 10January 15, 2020 12:00am December 14, 2020 12:18pm start day 1 of menstrual cycle Vit,Carol 24-Qysl-Sdlge 1 TABLET tablet (1 source) Start: 11-08-2019 End: 12-14-2020 Vit,Carol 45-Xkyr-Lbnil 1 TABLET tablet Discontinued 1 {tbl} PO DAILY November 08, 2019 1:00am December 14, 2020 12:18pm Vit,Psfc73-Rcko-Zeg ic (1 source) Start: 11-08-2019 End: 12-14-2020 take 1 tablet by mouth once daily Vit,Zswr29-Szgj-Mr lic Discontinued 1 TABLET PO DAILY November 08, 2019 10:51am December 14, 2020 12:18pm Vit,Aniq09-Ohvv-Yze ic 1 TABLET tablet (20 sources) Start: 11-08-2019 End: 12-14-2020 take 1 tablet by mouth once daily Vit,Fykz29-Cftf-Xr lic 1 TABLET tablet Discontinued 1 {tbl} PO DAILY November 08, 2019 1:00am December 14, 2020 12:18pm Start: 11-08-2019 End: 12-14-2020 take 1 tablet by mouth once daily Vit,Zirq17-Gcnw-Pxycl 1 TABLET tablet Discontinued 1 {tbl} PO DAILY November 08, 2019 1:00am December 14, 2020 12:18pm promethazine hydrochloride 12.5 mg oral tablet (20 sources) Phenothiazine Start: 10-02-2024 End: 10-10-2024 take 1 tablet by mouth every six hours as needed for nausea and vomiting Promethazine 12.5 mg tablet Discontinued 12.5 mg PO EVERY 6 HOURS as needed for nausea and vomiting 90 3 October 02, 2024 1:00am October 10, 2024 11:32am Nausea and vomiting during Vomiting of , unspecified Start: 04-18-2019 End: 10-17-2019 take 1 tablet by mouth every six hours as needed for nausea and vomiting Promethazine 12.5 mg tablet Discontinued 12.5 mg PO EVERY 6 HOURS as needed for nausea and vomiting 60 2 April 19, 2019 12:00am October 17, 2019 7:20am rho(d) immune globulin, human 1500 unt prefilled syringe (2 sources) Human Immunoglobulin G Start: 09-27-2021 End: 09-27-2021 inject 1500 [IU] by intramuscular injection once RhoGAM Ultra-Filtered PLUS (rho(D) immune globulin) 1,500 unit (300 mcg) Discontinued 1500 UNIT IM ONCE 1 September 27, 2021 12:26pm September 27, 2021 12:39pm Start: 09-05-2019 End: 09-05-2019 inject 1500 [IU] by intramuscular injection once RhoGAM Ultra-Filtered PLUS (rho(D) immune globulin) 1,500 unit (300 mcg) Discontinued 1500 UNIT IM ONCE September 05, 2019 10:14am September 05, 2019 10:30am vitamin b6 100 mg oral tablet (20 sources) Start: 10-10-2024 End: 10-10-2024 take 1 tablet by mouth once daily Pyridoxine (Vitamin B6) 100 mg tablet Discontinued 100 mg PO daily October 10, 2024 1:00am October 10, 2024 11:35am NEGATED: Highlighted row has not occurred!No Known Historical Medications (5 sources) No Known Histori carol Medications Problems Active Problems Problem Classification Problem Date Documented Da te Episodic/Chronic Cardiac dysrhythmias (20 sources) Palpitations; Translations: [Palpitations] 10-10-2022 Episodic Contraceptive and procreative management (20 sources) Patient encounter status; Translations: [Encounter for other general counseling and advice on contraception] Onset: 07-17-2025 12-20-2021 Episodic Comment on above: ocp until vasectomy patient is surrogate , Surrogate parents Sarah(cell#[phone]) and Murphy-live in [place],have had 2 losses due to genetic deletion. No PA needed for IUD . Ref.#[id number] 06/26/25 Disorders of lipid metabolism (8 sources) Raised low density lipoprotein cholesterol; Translations: [Elevated LDL cholesterol level] 04-17-2023 Chronic Comment on above: check yearly and prn , ordered todaymild elevation. Essential hypertension (20 sources) Hypertensive disorder; Translations: [Hypertension] 10-12-2021 Chronic Comment on above: has been hypertensiv e in past will send to nephrol for evaal resistant hypertensi on, has had holter in past. continues with htn, palpitations, occasional chest discomfort, gets worked up In september we put h er on lisinopril 5mg daily, also on labetalol 100mg TIDresistant hypertension, has had holter in past. continues with htn, palpitations, occasional chest discomfort, gets worked upPrevious meds: amlodipine/valsartan 5-160mg 09/2022 started savi nopril 5mg qd, also on labetalol 100mg TID--renal US was not scheduled, we will call over to hospital today and get that going. otherwise, BP could be a little better but having some really good readings. She is going to monitor the BP and let us know if systolic >130 or diastolic >90 then would increase lisinopril to 10mg dailyresistant HTN, Holter in past. Hx palpitations, no chest discomfort, gets worked upPrevious meds: amlodipine/valsartan 5-160mgBB has been effective for the palpitations. 09/2022 started savi nopril 5mg qd, also on labetalol 100mg TID-monitor the BP and let us know if systolic >130 or diastolic >90. we dc'd lisinopril today, having some low readings and symptomatic. call if anything changes.resistant HTN, Holter in past. Hx palpitations, no chest discomfort, has anxiety.Previous meds: amlodipine/valsartan 5-160mg---renal US (duplex done, ?wrong cpt?. if necessary, we will get an ultrasound but stable for now)BB has been effective for the palpitations. Hemorrhage during ; abruptio placenta; placenta previa (20 sources) Subchorionic hematoma; Translations: [Other antepartum hemorrhage, unspecified trimester] 05-27-2019 Episodic Comment on above: [facility] US 05/09/19 Hypertension complicating ; childbirth and the puerperium (20 sources) Chronic hypertension complicating AND/OR reason for care during ; Translations: [Unspecified pre-existing hypertension complicating , unspecified trimester] Onset: 03-10-2025 11-13-2024 Chronic Comment on above: increased labetalol to 200mg Tid caused near syncope. Can't swallow procardia. Labetalol 100mg tid. RTO 1 wk BP check. MFM consult. Misses doses/discussed importance. No headache/vision changes. baseline pec labsasa 81mg at 10 weeks.32 wk:NST 2Xwk, wkly JOSS, Growth [id number] for anatomy increased labetalol to 200mg Tid caused near syncope. Can't swallow procardia. Labetalol 100mg tid. RTO 1 wk BP check. MFM consult. Misses doses/discussed importance. No headache/vision changes. baseline pec labsasa 81mg at 10 weeks.32 wk:NST and BPP weekly plus Growth [id number] for anatomy increased labetalol to 200mg Tid caused near syncope. Can't swallow procardia. Labetalol 100mg tid. RTO 1 wk BP check. MFM consult. Misses doses/discussed importance. No headache/vision changes. baseline pec labsasa 81mg at 10 weeks.32 wk:NST and BPP weekly plus Growth [id number] for anatomy;03/31: 32 w US:96% AC, 84% EFW03/31:vomited labetalol. Will repeat dose and call BP readings:132/83 increased labetalol to 200mg Tid caused near syncope. Can't swallow procardia. Labetalol 100mg tid. RTO 1 wk BP check. MFM consult. Misses doses/discussed importance. No headache/vision changes. baseline pec labsasa 81mg at 10 weeks.32 wk:NST and BPP weekly plus Growth [id number] for anatomy;03/31: 32 w US:96% AC, 84% EFW03/31:vomited labetalol. Will repeat dose and call BP readings:132/8336w EFW 74%, AC 92% Open wounds of extremities (20 sources) Laceration of left index finger; Translations: [Laceration without foreign body of left index finger without damage to nail, initial encounter] 03-12-2019 Episodic Other complications of ; puerperium affecting management of mother (20 sources) ultrasound scan abnormal; Translations: [Maternal care for other (suspected) abnormality and damage, not applicable or unspecified] 12-14-2020 Episodic Comment on above: Echo 07/29 Isolated s uperior vena cava-seeing ped treater Other complications of (20 sources) Anemia of ; Translations: [Anemia complicating , unspecified trimester] 12-14-2020 Chronic Comment on above: Start iron. Recheck CBC at 36 weeks SlowFe Other complications of (20 sources) Maternal obesity complicating , childbirth and the puerperium, antepartum; Translations: [Obesity complicating , unspecified trimester] 11-13-2024 Chronic Comment on above: HgbA1c Other complications of (2 sources) Obesity complicating , second trimester; Translations: [Obesity complicating , second trimester] Onset: 04-28-2025 Chronic Other complications of (2 sources) Anemia complicating , second trimester; Translations: [Anemia complicating , second trimester] Onset: 04-28-2025 Chronic Other complications of (1 source) Anemia complicating , third trimester; Translations: [Anemia complicating , third trimester] Onset: 05-02-2025 Chronic Other complications of (20 sources) RhD negative; Translations: [Other specified related conditions, unspecified trimester] 11-13-2024 Episodic Comment on above: Rhogam @ 28 wks & CT N Bleeding rhogam at 28 weeks a nd prn bleeding Rhogam @ 28 wks & CT N Bleeding. Baby is Rh- per Stephy results Other complications of (20 sources) Hypothyroidism in ; Translations: [Endocrine, nutritional and metabolic diseases complicating , unspecified trimester] 12-14-2020 Episodic Other complications of (20 sources) High risk ; Translations: [Supervision of high risk , unspecified, unspecified trimester] 11-13-2024 Episodic Comment on above: [id number](1 child was surrogate),GLENN 05/21/25, PC Dominic Valentine, BF Eliezer Other complications of (20 sources) Thyroid disease in mother complicating , childbirth AND/OR puerperium; Translations: [Endocrine, nutritional and metabolic diseases complicating , unspecified trimester] 10-02-2024 Episodic Comment on above: normal labs Other complications of (20 sources) Variable heart decelerations; Translations: [Maternal care for abnormalities of the heart rate or rhythm, unspecified trimester, not applicable or unspecified] 04-21-2025 Episodic Comment on above: BPP 03/30 and reassuri ng NST for 06/01. 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 diet related? deandre g to try and drink more water, watch gas producing foods, prn simethicone. Other hematologic conditions (20 sources) History of anemia; Translations: [History of anemia] 10-10-2022 Episodic Other liver diseases (20 sources) Elevated liver enzymes level; Translations: [Abnormal levels of other serum enzymes] 11-13-2024 Episodic Comment on above: mild. mild. decreasing. Other nutritional; endocrine; and metabolic disorders (20 sources) Body mass index 30+ - obesity; Translations: [BMI 31.0-31.9,adult] Resolved: 11-22-2022 10-12-2021 Chronic Other nutritional; endocrine; and metabolic disorders (20 sources) H/O: hypothyroidism; Translations: [History of hypothyroidism] 10-12-2021 Episodic Comment on above: check tsh yearlyduri ng Other nutritional; endocrine; and metabolic disorders (18 sources) Overweight in adulthood with body mass index of 25 or more but less than 30; Translations: [BMI 28.0-28.9,adult] 11-22-2022 Episodic Other and delivery including normal (20 sources) ; Translations: [] Onset: 12-05-2024 10-12-2021 Episodic Comment on above: last menstral period Jul she is 2months, may be miscarrying PRR GLENN 11/11/19 patient has two sons- Serge and Rob - Mir NIPT low risk(NO GEN AMY) carrier neg. . nl anatomy. genetic screening nl . afp screen neg. anatomy us- echo repeat @ 25 wks . Growth US normal, growth US every 4 weeks with MFM GBS neg, NIPT low ri sk(NO GENDER) carrier neg. . nl anatomy. sm iol chtn girl santana Other skin disorders (20 sources) Leukonychia; Translations: [Leukonychia] 10-10-2022 Episodic Other skin disorders (20 sources) Disorder of keratinization; Translations: [Disorder of keratinization] 10-14-2022 Episodic Comment on above: keratin build up on nails due to always having nail malagasy on. can use OTC products. Other upper respiratory infections (20 sources) Acute sinusitis; Translations: [Acute sinusitis, unspecified] 10-20-2019 Episodic Polyhydramnios and other problems of amniotic cavity (1 source) Hemorrhagic complication of ; Translations: [Other specified disorders of amniotic fluid and membranes, unspecified trimester, not applicable or unspecified] Episodic Residual codes; unclassified (20 sources) Non-smoker; Translations: [Nonsmoker] 10-12-2021 Episodic Spontaneous (20 sources) Miscarriage; Translations: [Miscarriage] 10-12-2021 Episodic Comment on above: Dr. Massey spontaneous Unclassified (20 sources) Past or Other Problems Problem Classification Problem Date Documented Date Episodic/Chronic Malaise and fatigue (20 sources) Fatigue; Translations: [Other fatigue] Onset: 04-28-2025 09-30-2024 Episodic Other complications of (2 sources) Supervision of high risk , unspecified, third trimester; Translations: [Supervision of high risk , unspecified, third trimester] Onset: 05-20-2025 Episodic Other complications of (2 sources) Other specified related conditions, second trimester; Translations: [Other specified related conditions, second trimester] Onset: 04-28-2025 Episodic Other complications of (2 sources) Endocrine, nutritional and metabolic diseases complicating , unspecified trimester; Translations: [Endocrine, nutritional and metabolic diseases complicating , unspecified trimester] Onset: 04-28-2025 Episodic Other complications of (2 sources) Maternal care for abnormalities of the heart rate or rhythm, unspecified trimester, not applicable or unspecified; Translations: [Maternal care for abnormalities of the heart rate or rhythm, unspecified trimester, not applicable or unspecified] Onset: 05-02-2025 Episodic Other complications of (1 source) Supervision of high risk , unspecified, second trimester; Translations: [Supervision of high risk , unspecified, second trimester] Onset: 03-28-2025 Episodic Other complications of (1 source) Supervision of high risk , unspecified, unspecified trimester; Translations: [Supervision of high risk , unspecified, unspecified trimester] Onset: 11-14-2024 Episodic Other female genital disorders (1 source) Other specified noninflammatory disorders of vagina; Translations: [Other specified noninflammatory disorders of vagina] Onset: 04-13-2025 Episodic Other liver diseases (2 sources) Abnormal levels of other serum enzymes; Translations: [Abnormal levels of other serum enzymes] Onset: 04-28-2025 Episodic Other screening for suspected conditions (not mental disorders or infectious disease) (20 sources) Thyroid function tests abnormal; Translations: [Abnormal results of thyroid function studies] Onset: 10-31-2024 12-14-2020 Episodic Residual codes; unclassified (1 source) 37 weeks gestation of ; Translations: [37 weeks gestation of ] Onset: 05-20-2025 Episodic Residual codes; unclassified (2 sources) Unspecified blood type, Rh negative; Translations: [Unspecified blood type, Rh negative] Onset: 04-28-2025 Episodic Residual codes; unclassified (1 source) 36 weeks gestation of ; Translations: [36 weeks gestation of ] Onset: 04-28-2025 Episodic Residual codes; unclassified (2 sources) 35 weeks gestation of ; Translations: [35 weeks gestation of ] Onset: 04-21-2025 Episodic Residual codes; unclassified (1 source) 32 weeks gestation of ; Translations: [32 weeks gestation of ] Onset: 03-28-2025 Episodic Residual codes; unclassified (1 source) 30 weeks gestation of ; Translations: [30 weeks gestation of ] Onset: 03-12-2025 Episodic Residual codes; unclassified (1 source) 24 weeks gestation of ; Translations: [24 weeks gestation of ] Onset: 02-03-2025 Episodic Residual codes; unclassified (1 source) 21 weeks gestation of ; Translations: [21 weeks gestation of ] Onset: 01-09-2025 Episodic Residual codes; unclassified (1 source) 17 weeks gestation of ; Translations: [17 weeks gestation of ] Onset: 12-12-2024 Episodic Residual codes; unclassified (1 source) 13 weeks gestation of ; Translations: [13 weeks gestation of ] Onset: 11-13-2024 Episodic Thyroid disorders (20 sources) Disorder of thyroid gland; Translations: [Disorder of thyroid, unspecified] Onset: 04-28-2025 10-11-2024 Episodic Comment on above: not on any medicatio ns, was on previous during surrogacy. nl labs. history not present. not on any medications, was on previous during surrogacy. Unclassified (20 sources) 10-12-2021 Comment on above: 3 pregnancies, 3 imer e births, 1 miscarriage Unclassified (5 sources) Nonsmoker Unclassified (5 sources) BMI 31.0-31.9,adult Unclassified (5 sources) Encounter for routine adult medical exam with abnormal findings Unclassified (1 source) Normal labor; Translations: [Active labor at term] Results Test Name Value Interpretation Reference Range Facility Geological Technician Office Visit Reporton 08-28-2025 Geological Technician Office Visit Report Normal [facility] Laboratory - Chemistry and C hemistry - challengeOrdered By: Joyce Bolanos on 07-17-2025 HCG ( test) Ql (U) Negative [facility] Geological Technician Office Visit Reporton 07-17-2025 Geological Technician Office Visit Report Normal [facility] Geological Technician Office Visit Reporton 06-19-2025 Geological Technician Office Visit Report Normal [facility] Office Visit Reporton 2024 Office Visit Report Normal [facility] Absolute lymphocyte countOrd ered By: Abby Carreon on 05-10-2025 Lymphocytes Auto (Unsp spec) [#/Vol] 1.00 10*3/uL 0.83-4.51 [facility] Absolute neutrophil countOrd ered By: Abby Carreon on 05-10-2025 Neutrophils (Bld) [#/Vol] 14.1 10*3/uL High 2.0-7.7 [facility] Anion gap in Serum or Plasma Ordered By: Abby Carreon on 05-10-2025 Anion gap [Moles/Vol] 11 mmol/L 5-15 [facility] Automated lymphocyte count a s percentage of total leukocytesOrdered By: Abby Carreon on 05-10-2025 Lymphocytes/100 WBC Auto (Unsp spec) 6.3 % Low 19-41 [facility] BUN/creatinine ratioOrdered By: Abby Carreon on 05-10-2025 Urea nitrogen/Creatinine [Mass ratio] 9.4 mg/mg Low 10-20 [facility] Basophil percentageOrdered B y: Abby Carreon on 05-10-2025 Basophils/100 WBC (Bld) 0.1 % 0-1 [facility] Bedside Glucoseon 05-10-2025 FINGERSTICK GLU 76 mg/dL Normal 74-106 [facility] Comment on above: Result Comment: JERED CLARKE OF PATIENT CARE PER NURSING PROTOCOL Performed By: #### L 501.080 ####[facility] [address] [place], [address] Bilirubin, totalOrdered By: Abby Carreon on 05-10-2025 Bilirubin [Mass/Vol] 0.54 mg/dL 0.00-1.30 [facility] CBC W/Diff, Automatedon 04-22 Absolute Lymph 1.00 X10 3/uL Normal 0.83-4.51 [facility] Comment on above: Order Comment: Comme nts: First day Performed By: #### L 100.0100 ####[facility] [address] [place], [address] Absolute Neut 14.1 X10 3/uL High 2.0-7.7 [facility] Comment on above: Order Comment: Comme nts: First day Performed By: #### L 100.0100 ####[facility] [address] [place], [address] Basophils/100 WBC (Bld) 0.1 % Normal 0-1 [facility] Comment on above: Order Comment: Comme nts: First day Performed By: #### L 100.0100 ####[facility] [address] [place], [address] Eosinophils/100 WBC (Bld) 0.3 % Normal 0-5 [facility] Comment on above: Order Comment: Comme nts: First day Performed By: #### L 100.0100 ####[facility] [address] [place], [address] Erythrocyte distribution width (RBC) [Ratio] 13.7 % Normal 11.6-14.6 [facility] Comment on above: Order Comment: Comme nts: First day Performed By: #### L 100.0100 ####[facility] [address] [place], [address] Hematocrit (Bld) [Volume fraction] 28.0 % Low 37-47 [facility] Comment on above: Order Comment: Comme nts: First day Performed By: #### L 100.0100 ####[facility] [address] [place], [address] Hemoglobin (Bld) [Mass/Vol] 10.2 g/dL Low 12.0-15.0 [facility] Comment on above: Order Comment: Comme nts: First day Performed By: #### L 100.0100 ####[facility] [address] [place], [address] IG% 0.800 Normal 0.0-0.9 [facility] Comment on above: Order Comment: Comme nts: First day Result Comment: IG% - Immature Granulocytes (promyelocytes, myelocytes andmetamyelocytes) > 1% indicates that a LEFT SHIFT is Present. Performed By: #### L 100.0100 ####[facility] [address] [place], [address] Lymphocytes/100 WBC (Bld) 6.3 % Low 19-41 [facility] Comment on above: Order Comment: Comme nts: First day Performed By: #### L 100.0100 ####[facility] [address] [place], [address] MCH (RBC) [Entitic mass] 33.9 pg High 27.0-32.0 [facility] Comment on above: Order Comment: Comme nts: First day Performed By: #### L 100.0100 ####[facility] [address] [place], [address] MCHC (RBC) [Mass/Vol] 36.4 g/dL High 32-36 [facility] Comment on above: Order Comment: Comme nts: First day Performed By: #### L 100.0100 ####[facility] [address] [place], [address] MCV (RBC) [Entitic vol] 93.0 fL Normal 81-99 [facility] Comment on above: Order Comment: Comme nts: First day Performed By: #### L 100.0100 ####[facility] [address] [place], [address] Monocytes/100 WBC (Bld) 3.8 % Normal 0-10 [facility] Comment on above: Order Comment: Comme nts: First day Performed By: #### L 100.0100 ####[facility] [address] [place], [address] Neutrophils/100 WBC (Bld) 88.7 % High 47-70 [facility] Comment on above: Order Comment: Comme nts: First day Performed By: #### L 100.0100 ####[facility] [address] [place], [address] Nucleated RBC (Bld) [#/Vol] 0 10*3/uL Normal 0-5 [facility] Comment on above: Order Comment: Comme nts: First day Performed By: #### L 100.0100 ####[facility] [address] [place], [address] Platelet mean volume (Bld) [Entitic vol] 9.3 fL Normal 6.2-12.0 [facility] Comment on above: Order Comment: Comme nts: First day Performed By: #### L 100.0100 ####[facility] [address] [place], [address] Platelets (Bld) [#/Vol] 181 10*3/uL Normal 150-450 [facility] Comment on above: Order Comment: Comme nts: First day Performed By: #### L 100.0100 ####[facility] [address] [place], [address] RBC (Bld) [#/Vol] 3.01 10*6/uL Low 4.2-5.4 [facility] Comment on above: Order Comment: Comme nts: First day Performed By: #### L 100.0100 ####[facility] [address] [place], [address] RDW SD 45.3 fl High 35.1-43.9 [facility] Comment on above: Order Comment: Comme nts: First day Performed By: #### L 100.0100 ####[facility] [address] [place], [address] WBC (Bld) [#/Vol] 15.9 10*3/uL High 4.4-11.0 [facility] Comment on above: Order Comment: Comme nts: First day Performed By: #### L 100.0100 ####[facility] [address] [place], [address] Carbon dioxide, total [Moles /volume] in Central venous bloodOrdered By: Abby Carreon on 05-10-2025 CO2 [Moles/Vol] 19.2 mmol/L Low 21.0-32.0 [facility] Chloride assayOrdered By: Ismael Carreon on 05-10-2025 Chloride [Moles/Vol] 102 mmol/L 98-108 [facility] Comprehensive Metabolic Prof ilon 05-10-2025 Albumin [Mass/Vol] 3.4 g/dL Low 3.5-5.0 [facility] Comment on above: Performed By: #### L 500.4050 ####[facility] [address] [place], [address] Albumin/Globulin [Mass ratio] 1.4 {ratio} Normal 0.9-2.4 [facility] Comment on above: Performed By: #### L 500.4050 ####[facility] [address] [place], [address] ALK PHOS 138 U/L High 35-104 [facility] Comment on above: Performed By: #### L 500.4050 ####[facility] [address] [place], [address] ALT [Catalytic activity/Vol] 18 U/L Normal <=34 [facility] Comment on above: Performed By: #### L 500.4050 ####[facility] [address] [place], [address] AST [Catalytic activity/Vol] 24 U/L Normal <=31 [facility] Comment on above: Performed By: #### L 500.4050 ####[facility] [address] [place], [address] Bilirubin [Mass/Vol] 0.54 mg/dL Normal 0.00-1.30 [facility] Comment on above: Performed By: #### L 500.4050 ####[facility] [address] [place], [address] BUN/CRE 9.4 RATIO Low 10-20 [facility] Comment on above: Performed By: #### L 500.4050 ####[facility] [address] [place], [address] Calcium [Mass/Vol] 8.3 mg/dL Normal 7.6-11.0 [facility] Comment on above: Performed By: #### L 500.4050 ####[facility] [address] [place], [address] Chloride [Moles/Vol] 102 mmol/L Normal 98-108 [facility] Comment on above: Performed By: #### L 500.4050 ####[facility] [address] [place], [address] CO2 [Moles/Vol] 19.2 mmol/L Low 21.0-32.0 [facility] Comment on above: Performed By: #### L 500.4050 ####[facility] [address] [place], [address] Creatinine [Mass/Vol] 0.74 mg/dL Normal 0.70-1.20 [facility] Comment on above: Performed By: #### L 500.4050 ####[facility] [address] [place], [address] ECRCL 116.54 ml/min Normal 50-250 [facility] Comment on above: Performed By: #### L 500.4050 ####[facility] [address] [place], [address] GAP 11 Normal 5-15 [facility] Comment on above: Performed By: #### L 500.4050 ####[facility] [address] [place], [address] GFR/1.73 sq M.predicted among non-blacks MDRD (S/P/Bld) [Vol rate/Area] 111 mL/min/{1.73_m2} Normal >60 [facility] Comment on above: Result Comment: mL/m in/1.73m2 CKD-EPI Creatinine Equation (2020) Performed By: #### L 500.4050 ####[facility] [address] [place], [address] Globulin (S) [Mass/Vol] 2.5 g/dL Normal 2.2-4.2 [facility] Comment on above: Performed By: #### L 500.4050 ####[facility] [address] [place], [address] Glucose [Mass/Vol] 110 mg/dL High 70-99 [facility] Comment on above: Performed By: #### L 500.4050 ####[facility] [address] [place], [address] Potassium [Moles/Vol] 4.3 mmol/L Normal 3.3-5.1 [facility] Comment on above: Performed By: #### L 500.4050 ####[facility] [address] [place], [address] Sodium [Moles/Vol] 133 mmol/L Normal 133-145 [facility] Comment on above: Performed By: #### L 500.4050 ####[facility] [address] [place], [address] T PROT 5.9 g/dL Normal 5.9-8.4 [facility] Comment on above: Performed By: #### L 500.4050 ####[facility] [address] [place], [address] Urea nitrogen [Mass/Vol] 7 mg/dL Normal 4-19 [facility] Comment on above: Performed By: #### L 500.4050 ####[facility] [address] [place], [address] Eosinophil percentageOrdered By: Abby Carreon on 05-10-2025 Eosinophils/100 WBC (Bld) 0.3 % 0-5 [facility] Erythrocyte distribution wid th ratioOrdered By: Abby Carreon on 05-10-2025 Erythrocyte distribution width (RBC) [Ratio] 13.7 % 11.6-14.6 [facility] Erythrocyte distribution wid th standard deviationOrdered By: Abby Carreon on 05-10-2025 Erythrocyte distribution width (RBC) [Ratio] 45.3 fl High 35.1-43.9 [facility] Glomerular filtration rate ( GFR) estimation/1.73 sq m using serum, plasma, or whole bOrdered By: Abby Carreon on 05-10-2025 GFR/1.73 sq M.predicted among non-blacks MDRD (S/P/Bld) [Vol rate/Area] 111 mL/min/{1.73_m2} >60 [facility] Comment on above: mL/min/1.73m2 CKD-EP I Creatinine Equation (2020) Glucose measurement at bedsi deOrdered By: Abby Carreon on 05-10-2025 Glucose [Mass/Vol] 76 mg/dL 74-106 [facility] Comment on above: MANAGEMENT OF PATIEN T CARE PER NURSING PROTOCOL Hematocrit Auto (Bld) [Volum e fraction]Ordered By: Abby Carreon on 05-10-2025 Hematocrit (Bld) [Volume fraction] 28.0 % Low 37-47 [facility] Hemoglobin measurementOrdere d By: Abby Carreon on 05-10-2025 Hemoglobin (Bld) [Mass/Vol] 10.2 g/dL Low 12.0-15.0 [facility] Immature granulocytes/100 WB C Auto (Bld)Ordered By: Abby Carreon on 05-10-2025 Immature granulocytes/100 WBC (Bld) 0.800 % 0.0-0.9 [facility] Comment on above: IG% - Immature Granu locytes (promyelocytes, myelocytes and metamyelocytes) > 1% indicates that a LEFT SHIFT is Present. Laboratory - Chemistry and C hemistry - challengeOrdered By: Abby Carreon on 05-10-2025 AST [Catalytic activity/Vol] 24 U/L <32 [facility] MCV (mean corpuscular volume ) determinationOrdered By: Abby Carreon on 05-10-2025 MCV (RBC) [Entitic vol] 93.0 fL 81-99 [facility] Mean corpuscular hemoglobin (MCH) determinationOrdered By: Abby Carreon on 05-10-2025 MCH (RBC) [Entitic mass] 33.9 pg High 27.0-32.0 [facility] Mean corpuscular hemoglobin concentration (MCHC) determinationOrdered By: Abby Carreon on 05-10-2025 MCHC (RBC) [Mass/Vol] 36.4 g/dL High 32-36 [facility] Mean platelet volume determi nationOrdered By: Abby Carreon on 05-10-2025 Platelet mean volume (Bld) [Entitic vol] 9.3 fL 6.2-12.0 [facility] Monocyte percentageOrdered B y: Abby Carreon on 05-10-2025 Monocytes/100 WBC (Bld) 3.8 % 0-10 [facility] Neutrophil percentageOrdered By: Abby Carreon on 05-10-2025 Neutrophils/100 WBC (Bld) 88.7 % High 47-70 [facility] Nucleated red blood cell per centageOrdered By: Abby Carreon on 05-10-2025 Nucleated RBC/100 WBC (Bld) [Ratio] 0 % 0-5 [facility] Platelet countOrdered By: Ismael Carreon on 05-10-2025 Platelets (Bld) [#/Vol] 181 10*3/uL 150-450 [facility] Potassium measurement (mass/ volume)Ordered By: Abby Carreon on 05-10-2025 Potassium (Unsp spec) [Mass/Vol] 4.3 mmol/L 3.3-5.1 [facility] RBC Auto (Bld) [#/Vol]Ordere d By: Abyb Carreon on 05-10-2025 RBC (Bld) [#/Vol] 3.01 10*6/uL Low 4.2-5.4 [facility] Serum creatinine measurement (mass/volume)Ordered By: Abby Carreon on 05-10-2025 Creatinine [Mass/Vol] 0.74 mg/dL 0.70-1.20 [facility] Serum globulin measurementOr dered By: Abby Carreon on 05-10-2025 Globulin (S) [Mass/Vol] 2.5 g/dL 2.2-4.2 [facility] Serum glucose measurement (m ass/volume)Ordered By: Abby Carreon on 05-10-2025 Glucose [Mass/Vol] 110 mg/dL High 70-99 [facility] Serum or plasma alanine cerda otransferase (ALT) measurementOrdered By: Abby Carreon on 05-10-2025 ALT [Catalytic activity/Vol] 18 U/L <35 [facility] Serum or plasma albumin liza urement (mass/volume)Ordered By: Abby Carreon on 05-10-2025 Albumin [Mass/Vol] 3.4 g/dL Low 3.5-5.0 [facility] Serum or plasma albumin/glob ulin mass ratioOrdered By: Abby Carreon on 05-10-2025 Albumin/Globulin [Mass ratio] 1.4 {ratio} 0.9-2.4 [facility] Serum or plasma alkaline johnie sphatase measurementOrdered By: Abby Carreon on 05-10-2025 ALP [Catalytic activity/Vol] 138 U/L High 35-104 [facility] Serum or plasma calcium liza urement (mass/volume)Ordered By: Abby Carreon on 05-10-2025 Calcium [Mass/Vol] 8.3 mg/dL 7.6-11.0 [facility] Serum or plasma urea nitroge n measurement (mass/volume)Ordered By: Abby Carreon on 05-10-2025 Urea nitrogen [Mass/Vol] 7 mg/dL 4-19 [facility] Sodium levelOrdered By: Keon Carreon on 05-10-2025 Sodium [Moles/Vol] 133 mmol/L 133-145 [facility] Total proteinOrdered By: Rudy Carreon on 05-10-2025 Protein [Mass/Vol] 5.9 g/dL 5.9-8.4 [facility] White blood cell (WBC) count Ordered By: Abby Carreon on 05-10-2025 WBC (Bld) [#/Vol] 15.9 10*3/uL High 4.4-11.0 [facility] CBC W/Diff, Automatedon 04-22 Absolute Lymph 1.61 X10 3/uL Normal 0.83-4.51 [facility] Comment on above: Performed By: #### L 100.0100 ####[facility] [address] [place], [place], [address] Absolute Neut 8.9 X10 3/uL High 2.0-7.7 [facility] Comment on above: Performed By: #### L 100.0100 ####[facility] [address] [place], [address] Basophils/100 WBC (Bld) 0.2 % Normal 0-1 [facility] Comment on above: Performed By: #### L 100.0100 ####[facility] [address] [place], [address] Eosinophils/100 WBC (Bld) 2.4 % Normal 0-5 [facility] Comment on above: Performed By: #### L 100.0100 ####[facility] [address] [place], [address] Erythrocyte distribution width (RBC) [Ratio] 13.7 % Normal 11.6-14.6 [facility] Comment on above: Performed By: #### L 100.0100 ####[facility] [address] [place], [address] Hematocrit (Bld) [Volume fraction] 30.9 % Low 37-47 [facility] Comment on above: Performed By: #### L 100.0100 ####[facility] [address] [place], [address] Hemoglobin (Bld) [Mass/Vol] 10.8 g/dL Low 12.0-15.0 [facility] Comment on above: Performed By: #### L 100.0100 ####[facility] [address] [place], [address] IG% 1.400 High 0.0-0.9 [facility] Comment on above: Result Comment: IG% - Immature Granulocytes (promyelocytes, myelocytes andmetamyelocytes) > 1% indicates that a LEFT SHIFT is Present. Performed By: #### L 100.0100 ####[facility] [address] [place], [address] Lymphocytes/100 WBC (Bld) 13.8 % Low 19-41 [facility] Comment on above: Performed By: #### L 100.0100 ####[facility] [address] [place], [address] MCH (RBC) [Entitic mass] 32.5 pg High 27.0-32.0 [facility] Comment on above: Performed By: #### L 100.0100 ####[facility] [address] [place], [address] MCHC (RBC) [Mass/Vol] 35.0 g/dL Normal 32-36 [facility] Comment on above: Performed By: #### L 100.0100 ####[facility] [address] [place], [address] MCV (RBC) [Entitic vol] 93.1 fL Normal 81-99 [facility] Comment on above: Performed By: #### L 100.0100 ####[facility] [address] [place], [address] Monocytes/100 WBC (Bld) 6.3 % Normal 0-10 [facility] Comment on above: Performed By: #### L 100.0100 ####[facility] [address] [place], [address] Neutrophils/100 WBC (Bld) 75.9 % High 47-70 [facility] Comment on above: Performed By: #### L 100.0100 ####[facility] [address] [place], [address] Nucleated RBC (Bld) [#/Vol] 0 10*3/uL Normal 0-5 [facility] Comment on above: Performed By: #### L 100.0100 ####[facility] [address] [place], [address] Platelet mean volume (Bld) [Entitic vol] 9.4 fL Normal 6.2-12.0 [facility] Comment on above: Performed By: #### L 100.0100 ####[facility] [address] [place], [address] Platelets (Bld) [#/Vol] 213 10*3/uL Normal 150-450 [facility] Comment on above: Performed By: #### L 100.0100 ####[facility] [address] [place], [address] RBC (Bld) [#/Vol] 3.32 10*6/uL Low 4.2-5.4 [facility] Comment on above: Performed By: #### L 100.0100 ####[facility] [address] [place], [address] RDW SD 46.4 fl High 35.1-43.9 [facility] Comment on above: Performed By: #### L 100.0100 ####[facility] [address] [place], [address] WBC (Bld) [#/Vol] 11.7 10*3/uL High 4.4-11.0 [facility] Comment on above: Performed By: #### L 100.0100 ####[facility] [address] [place], [address] Absolute Lymph 1.14 X10 3/uL Normal 0.83-4.51 [facility] Comment on above: Performed By: #### B TS, L100.0100 ####[facility] [address] [place], [address] Absolute Neut 6.3 X10 3/uL Normal 2.0-7.7 [facility] Comment on above: Performed By: #### B TS, L100.0100 ####[facility] [address] [place], [address] Basophils/100 WBC (Bld) 0.2 % Normal 0-1 [facility] Comment on above: Performed By: #### B YAIR, L100.0100 ####[facility] [address] [place], [address] Eosinophils/100 WBC (Bld) 3.3 % Normal 0-5 [facility] Comment on above: Performed By: #### B YAIR, L100.0100 ####[facility] [address] [place], [address] Erythrocyte distribution width (RBC) [Ratio] 13.7 % Normal 11.6-14.6 [facility] Comment on above: Performed By: #### B YAIR, L100.0100 ####[facility] [address] [place], [address] Hematocrit (Bld) [Volume fraction] 28.2 % Low 37-47 [facility] Comment on above: Performed By: #### Daniel MAZARIEGOS, L100.0100 ####[facility] [address] [place], [address] Hemoglobin (Bld) [Mass/Vol] 9.9 g/dL Low 12.0-15.0 [facility] Comment on above: Performed By: #### B YAIR, L100.0100 ####[facility] [address] [place], [address] IG% 1.300 High 0.0-0.9 [facility] Comment on above: Result Comment: IG% - Immature Granulocytes (promyelocytes, myelocytes andmetamyelocytes) > 1% indicates that a LEFT SHIFT is Present. Performed By: #### B YAIR, L100.0100 ####[facility] [address] [place], [address] Lymphocytes/100 WBC (Bld) 13.9 % Low 19-41 [facility] Comment on above: Performed By: #### B YAIR, L100.0100 ####[facility] [address] [place], [address] MCH (RBC) [Entitic mass] 32.6 pg High 27.0-32.0 [facility] Comment on above: Performed By: #### Daniel MAZARIEGOS, L100.0100 ####[facility] [address] [place], [address] MCHC (RBC) [Mass/Vol] 35.1 g/dL Normal 32-36 [facility] Comment on above: Performed By: #### Daniel MAZARIEGOS, L100.0100 ####[facility] [address] [place], [address] MCV (RBC) [Entitic vol] 92.8 fL Normal 81-99 [facility] Comment on above: Performed By: #### Daniel MAZARIEGOS, L100.0100 ####[facility] [address] [place], [address] Monocytes/100 WBC (Bld) 4.9 % Normal 0-10 [facility] Comment on above: Performed By: #### Daniel MAZARIEGOS, L100.0100 ####[facility] [address] [place], [address] Neutrophils/100 WBC (Bld) 76.4 % High 47-70 [facility] Comment on above: Performed By: #### Daniel MAZARIEGOS, L100.0100 ####[facility] [address] [place], [address] Nucleated RBC (Bld) [#/Vol] 0 10*3/uL Normal 0-5 [facility] Comment on above: Performed By: #### Daniel MAZARIEGOS, L100.0100 ####[facility] [address] [place], [address] Platelet mean volume (Bld) [Entitic vol] 9.6 fL Normal 6.2-12.0 [facility] Comment on above: Performed By: #### Daniel MAZARIEGOS, L100.0100 ####[facility] [address] [place], [address] Platelets (Bld) [#/Vol] 178 10*3/uL Normal 150-450 [facility] Comment on above: Performed By: #### Daniel MAZARIEGOS, L100.0100 ####[facility] [address] [place], [address] RBC (Bld) [#/Vol] 3.04 10*6/uL Low 4.2-5.4 [facility] Comment on above: Performed By: #### Daniel MAZARIEGOS, L100.0100 ####[facility] [address] [place], [address] RDW SD 45.4 fl High 35.1-43.9 [facility] Comment on above: Performed By: #### Daniel MAZARIEGOS, L100.0100 ####[facility] [address] [place], [address] WBC (Bld) [#/Vol] 8.2 10*3/uL Normal 4.4-11.0 [facility] Comment on above: Performed By: #### Daniel MAZARIEGOS, L100.0100 ####[facility] [address] [place], [address] Comprehensive [facility] 05-09-2025 Albumin [Mass/Vol] 3.9 g/dL Normal 3.5-5.0 [facility] Comment on above: Performed By: #### L 500.4050 ####[facility] [address] [place], [address] Albumin/Globulin [Mass ratio] 1.4 {ratio} Normal 0.9-2.4 [facility] Comment on above: Performed By: #### L 500.4050 ####[facility] [address] [place], [address] ALK PHOS 156 U/L High 35-104 [facility] Comment on above: Performed By: #### L 500.4050 ####[facility] [address] [place], [address] ALT [Catalytic activity/Vol] 15 U/L Normal <=34 [facility] Comment on above: Performed By: #### L 500.4050 ####[facility] [address] [place], [address] AST [Catalytic activity/Vol] 23 U/L Normal <=31 [facility] Comment on above: Performed By: #### L 500.4050 ####[facility] [address] [place], [address] Bilirubin [Mass/Vol] 0.54 mg/dL Normal 0.00-1.30 [facility] Comment on above: Performed By: #### L 500.4050 ####[facility] [address] [place], [address] BUN/CRE 10.2 RATIO Normal 10-20 [facility] Comment on above: Performed By: #### L 500.4050 ####[facility] [address] [place], [address] Calcium [Mass/Vol] 9.6 mg/dL Normal 7.6-11.0 [facility] Comment on above: Performed By: #### L 500.4050 ####[facility] [address] [place], [address] Chloride [Moles/Vol] 104 mmol/L Normal 98-108 [facility] Comment on above: Performed By: #### L 500.4050 ####[facility] [address] [place], [address] CO2 [Moles/Vol] 20.6 mmol/L Low 21.0-32.0 [facility] Comment on above: Performed By: #### L 500.4050 ####[facility] [address] [place], [address] Creatinine [Mass/Vol] 0.71 mg/dL Normal 0.70-1.20 [facility] Comment on above: Performed By: #### L 500.4050 ####[facility] [address] [place], [address] ECRCL 121.47 ml/min Normal 50-250 [facility] Comment on above: Performed By: #### L 500.4050 ####[facility] [address] [place], [address] GAP 11 Normal 5-15 [facility] Comment on above: Performed By: #### L 500.4050 ####[facility] [address] [place], [address] GFR/1.73 sq M.predicted among non-blacks MDRD (S/P/Bld) [Vol rate/Area] 116 mL/min/{1.73_m2} Normal >60 [facility] Comment on above: Result Comment: mL/m in/1.73m2 CKD-EPI Creatinine Equation (2020) Performed By: #### L 500.4050 ####[facility] [address] [place], [address] Globulin (S) [Mass/Vol] 2.8 g/dL Normal 2.2-4.2 [facility] Comment on above: Performed By: #### L 500.4050 ####[facility] [address] [place], [address] Glucose [Mass/Vol] 86 mg/dL Normal 70-99 [facility] Comment on above: Performed By: #### L 500.4050 ####[facility] [address] [place], [address] Potassium [Moles/Vol] 4.2 mmol/L Normal 3.3-5.1 [facility] Comment on above: Performed By: #### L 500.4050 ####[facility] [address] [place], [address] Sodium [Moles/Vol] 136 mmol/L Normal 133-145 [facility] Comment on above: Performed By: #### L 500.4050 ####[facility] [address] [place], [address] T PROT 6.6 g/dL Normal 5.9-8.4 [facility] Comment on above: Performed By: #### L 500.4050 ####[facility] [address] [place], [address] Urea nitrogen [Mass/Vol] 7 mg/dL Normal 4-19 [facility] Comment on above: Performed By: #### L 500.4050 ####[facility] [address] [place], [address] Discharge Instructionon 04-22 Discharge Instruction Normal [facility] H AND P Exam - OB/GYNon 04-22 H&P Exam - MANAGER HOME IMPROVEMENT Normal [facility] MR/OB.VAGDELIon 05-09-2025 MR/OB.VAGDELI Normal [facility] Syphilis Antibodieson 2024 Syphilis Abs Non-Reactive Normal Nonreactive [facility] Comment on above: Performed By: #### L 509.8002 ####[facility] [address] [place], [address] Type AND Screenon 05-09-2025 ABO and Rh group Nom (Bld) Blood group O Rh(D) negative Normal [facility] Comment on above: Order Comment: Labor Performed By: #### B TS, L100.0100 ####[facility] [address] [place], [address] Laboratory - Chemistry and C hemistry - challengeOrdered By: Abby Carreon on 05-05-2025 Glucose Ql (U) Negative [facility] Laboratory - UrinalysisOrder ed By: Abby Carreon on 05-05-2025 Protein Ql (U) Negative [facility] Protein+Creatinine Ratio,Uri neon 05-05-2025 PROT:CRE RATIO UNABLE TO CALCULATE Normal 0-200 [facility] Comment on above: Performed By: #### L 501.0900 ####[facility] [address] [place], [address] PROTEIN,UR.RAN. < 6.0 Normal 0.0-12.0 [facility] Comment on above: Performed By: #### L 501.0900 ####[facility] [address] [place], [address] UR CREAT 20.60 mg/dL Low 28.00-217.00 [facility] Comment on above: Performed By: #### L 501.0900 ####[facility] [address] [place], [address] Random urine creatinine liza urement (mass/volume)Ordered By: Tiffanie Bey on 05-05-2025 Creatinine Unsp time (U) [Mass/Vol] 20.60 mg/dL Low 28.00-217.00 [facility] Urine protein measurement (m ass/volume)Ordered By: Tiffanie Bey on 05-05-2025 Protein (U) [Mass/Vol] mg/dL 0.0-12.0 [facility] Urine protein/creatinine mas s ratioOrdered By: Tiffanie Bey on 05-05-2025 Protein/Creatinine (U) [Mass ratio] UNABLE TO CALCULATE mg/g CRE 0-200 [facility] Rule out Beta Strep (Grp. B) on 04-30-2025 LUKE Group B Beta Streptococcus is not isolated. Normal [facility] Comment on above: Performed By: #### M 100.3400 ####[facility] [address] [place], [address] OB Limited With Biometricson 04-29-2025 OB Limited With Biometrics Normal [facility] Laboratory - Chemistry and C hemistry - challengeOrdered By: Joyce Bolanos on 04-28-2025 Glucose Ql (U) Negative [facility] Laboratory - UrinalysisOrder ed By: Joyce Bolanos on 04-28-2025 Protein Ql (U) Negative [facility] Geological Technician Office Visit Reporton 04-28-2025 Geological Technician Office Visit Report Normal [facility] Screening beta-hemolytic Str eptococcus cultureOrdered By: Joyce Bolanos on 04-28-2025 Beta-hemolytic Streptococcus culture Group B Beta Streptococcus is not isolated. [facility] Laboratory - Chemistry and C hemistry - challengeOrdered By: Joyce Bolanos on 04-21-2025 Glucose Ql (U) Negative [facility] Laboratory - UrinalysisOrder ed By: Joyce Bolanos on 04-21-2025 Protein Ql (U) Negative [facility] OB Biophysical Prof W/O NSTo n 04-21-2025 OB Biophysical Prof W/O NST Normal [facility] OB Triage Progress Noteon OB Triage Progress Note Normal [facility] Geological Technician Office Visit Reporton 04-21-2025 Geological Technician Office Visit Report Normal [facility] Laboratory - Chemistry and C hemistry - challengeOrdered By: Tiffanie Bey on 04-14-2025 Glucose Ql (U) Negative [facility] Laboratory - UrinalysisOrder ed By: Tiffanie Bey on 04-14-2025 Protein Ql (U) Negative [facility] Geological Technician Office Visit Reporton 04-14-2025 Geological Technician Office Visit Report Normal [facility] Genital Culture Comprehensiv malia 04-09-2025 VAC Reason for Exam: vaginal irritation Normal genital yelena isolated Normal [facility] Comment on above: Performed By: #### M 100.3200, M100.1999 ####[facility] [address] [place], [address] Genital cultureOrdered By: Jessica Bey on 04-08-2025 Source specific culture Normal genital yelena isolated [facility] Gram Stainon 04-08-2025 GS Reason for Exam: vaginal irritation Gram Stain 4+ Gram positive rods Rare White Blood Cells No Gram negative diplococci Score = 0 Interpretation: 0-3 Normal, 4-6 Intermediate, 7-10 Positive BV Normal [facility] Comment on above: Performed By: #### M 100.3200, M100.2000 ####[facility] [address] [place], [address] Gram stainOrdered By: Humberto Bey on 04-08-2025 Microscopic observation Gram stain Nom (Unsp spec) [facility] Laboratory - Chemistry and C hemistry - challengeOrdered By: Tiffanie Bey on 04-08-2025 Glucose Ql (U) Negative [facility] Laboratory - UrinalysisOrder ed By: Tiffanie Bey on 04-08-2025 Protein Ql (U) Negative [facility] Geological Technician Office Visit Reporton 04-08-2025 Geological Technician Office Visit Report Normal [facility] Laboratory - Chemistry and C hemistry - challengeOrdered By: Antony Correa on 03-31-2025 Glucose Ql (U) Negative [facility] Laboratory - UrinalysisOrder ed By: Antony Correa on 03-31-2025 Protein Ql (U) Negative [facility] Geological Technician Office Visit Reporton 03-31-2025 Geological Technician Office Visit Report Normal [facility] Laboratory - Chemistry and C hemistry - challengeOrdered By: Joyce Bolanos on 03-28-2025 Glucose Ql (U) 250 g/dL [facility] Laboratory - UrinalysisOrder ed By: Joyce Bolanos on 03-28-2025 Protein Ql (U) Trace [facility] OB Limited With Biometricson 03-28-2025 OB Limited With Biometrics Normal [facility] Geological Technician Office Visit Reporton 03-28-2025 Geological Technician Office Visit Report Normal [facility] Protein+Creatinine Ratio,Uri neon 03-28-2025 PROT:CRE RATIO 131 mg/g CRE Normal 0-200 [facility] Comment on above: Performed By: #### L 501.0900 ####[facility] [address] [place], [place], [id number] Protein (U) [Mass/Vol] 19.5 mg/dL High 0.0-12.0 [facility] Comment on above: Performed By: #### L 501.0900 ####[facility] [address] [place], [address] UR CREAT 149.00 mg/dL Normal 28.00-217.00 [facility] Comment on above: Performed By: #### L 501.0900 ####[facility] [address] [place], [address] Random urine creatinine liza urement (mass/volume)Ordered By: Joyce Bolanos on 03-28-2025 Creatinine Unsp time (U) [Mass/Vol] 149.00 mg/dL 28.00-217.00 [facility] Urine protein measurement (m ass/volume)Ordered By: Joyce Bolanos on 03-28-2025 Protein (U) [Mass/Vol] 19.5 mg/dL High 0.0-12.0 [facility] Urine protein/creatinine mas s ratioOrdered By: Joyce Bolanos on 03-28-2025 Protein/Creatinine (U) [Mass ratio] 131 mg/g CRE 0-200 [facility] Laboratory - Chemistry and C hemistry - challengeOrdered By: Tiffanie Bey on 03-12-2025 Glucose Ql (U) Negative [facility] Laboratory - UrinalysisOrder ed By: Tiffanie Bey on 03-12-2025 Protein Ql (U) Negative [facility] Geological Technician Office Visit Reporton 03-12-2025 Geological Technician Office Visit Report Normal [facility] Absolute lymphocyte countOrd ered By: Joyce Bolaons on 02-24-2025 Lymphocytes Auto (Unsp spec) [#/Vol] 1.04 10*3/uL 0.83-4.51 [facility] Absolute neutrophil countOrd ered By: Joyce Bolanos on 02-24-2025 Neutrophils (Bld) [#/Vol] 6.3 10*3/uL 2.0-7.7 [facility] Anion gap in Serum or Plasma Ordered By: Joyce Bolanos on 02-24-2025 Anion gap [Moles/Vol] 12 mmol/L 5-15 [facility] Automated lymphocyte count a s percentage of total leukocytesOrdered By: Joyce Bolanos on 02-24-2025 Lymphocytes/100 WBC Auto (Unsp spec) 12.7 % Low 19-41 [facility] BUN/creatinine ratioOrdered By: Joyce Bolanos on 02-24-2025 Urea nitrogen/Creatinine [Mass ratio] 9.4 mg/mg Low 10-20 [facility] Basophil percentageOrdered B y: Joyce Bolanos on 02-24-2025 Basophils/100 WBC (Bld) 0.2 % 0-1 [facility] Bilirubin, totalOrdered By: Joyce Bolanos on 02-24-2025 Bilirubin [Mass/Vol] 0.28 mg/dL 0.00-1.30 [facility] CBC W/Diff, Automatedon Absolute Lymph 1.04 X10 3/uL Normal 0.83-4.51 [facility] Comment on above: Performed By: #### B TS, L500.4050, L100.0100, L3890.6006, L501.0250, L509.8002 ####[facility] [address] [place], [address] Absolute Neut 6.3 X10 3/uL Normal 2.0-7.7 [facility] Comment on above: Performed By: #### B TS, L500.4050, L100.0100, L3890.6006, L501.0250, L509.8002 ####[facility] [address] [place], [address] Basophils/100 WBC (Bld) 0.2 % Normal 0-1 [facility] Comment on above: Performed By: #### B TS, L500.4050, L100.0100, L3890.6006, L501.0250, L509.8002 ####[facility] [address] [place], [address] Eosinophils/100 WBC (Bld) 4.1 % Normal 0-5 [facility] Comment on above: Performed By: #### B TS, L500.4050, L100.0100, L3890.6006, L501.0250, L509.8002 ####[facility] [address] [place], [address] Erythrocyte distribution width (RBC) [Ratio] 13.3 % Normal 11.6-14.6 [facility] Comment on above: Performed By: #### B TS, L500.4050, L100.0100, L3890.6006, L501.0250, L509.8002 ####[facility] [address] [place], [address] Hematocrit (Bld) [Volume fraction] 27.8 % Low 37-47 [facility] Comment on above: Performed By: #### B TS, L500.4050, L100.0100, L3890.6006, L501.0250, L509.8002 ####[facility] [address] [place], [address] Hemoglobin (Bld) [Mass/Vol] 10.0 g/dL Low 12.0-15.0 [facility] Comment on above: Performed By: #### B TS, L500.4050, L100.0100, L3890.6006, L501.0250, L509.8002 ####[facility] [address] [place], [address] IG% 0.400 Normal 0.0-0.9 [facility] Comment on above: Result Comment: IG% - Immature Granulocytes (promyelocytes, myelocytes andmetamyelocytes) > 1% indicates that a LEFT SHIFT is Present. Performed By: #### B TS, L500.4050, L100.0100, L3890.6006, L501.0250, L509.8002 ####[facility] [address] [place], [address] Lymphocytes/100 WBC (Bld) 12.7 % Low 19-41 [facility] Comment on above: Performed By: #### B TS, L500.4050, L100.0100, L3890.6006, L501.0250, L509.8002 ####[facility] [address] [place], [address] MCH (RBC) [Entitic mass] 33.7 pg High 27.0-32.0 [facility] Comment on above: Performed By: #### B TS, L500.4050, L100.0100, L3890.6006, L501.0250, L509.8002 ####[facility] [address] [place], [address] MCHC (RBC) [Mass/Vol] 36.0 g/dL Normal 32-36 [facility] Comment on above: Performed By: #### B TS, L500.4050, L100.0100, L3890.6006, L501.0250, L509.8002 ####[facility] [address] [place], [address] MCV (RBC) [Entitic vol] 93.6 fL Normal 81-99 [facility] Comment on above: Performed By: #### B TS, L500.4050, L100.0100, L3890.6006, L501.0250, L509.8002 ####[facility] [address] [place], [address] Monocytes/100 WBC (Bld) 5.6 % Normal 0-10 [facility] Comment on above: Performed By: #### B TS, L500.4050, L100.0100, L3890.6006, L501.0250, L509.8002 ####[facility] [address] [place], [address] Neutrophils/100 WBC (Bld) 77.0 % High 47-70 [facility] Comment on above: Performed By: #### B TS, L500.4050, L100.0100, L3890.6006, L501.0250, L509.8002 ####[facility] [address] [place], [address] Nucleated RBC (Bld) [#/Vol] 0 10*3/uL Normal 0-5 [facility] Comment on above: Performed By: #### B TS, L500.4050, L100.0100, L3890.6006, L501.0250, L509.8002 ####[facility] [address] [place], [address] Platelet mean volume (Bld) [Entitic vol] 9.8 fL Normal 6.2-12.0 [facility] Comment on above: Performed By: #### B TS, L500.4050, L100.0100, L3890.6006, L501.0250, L509.8002 ####[facility] [address] [place], [address] Platelets (Bld) [#/Vol] 210 10*3/uL Normal 150-450 [facility] Comment on above: Performed By: #### B TS, L500.4050, L100.0100, L3890.6006, L501.0250, L509.8002 ####[facility] [address] [place], [address] RBC (Bld) [#/Vol] 2.97 10*6/uL Low 4.2-5.4 [facility] Comment on above: Performed By: #### B TS, L500.4050, L100.0100, L3890.6006, L501.0250, L509.8002 ####[facility] [address] [place], [address] RDW SD 45.4 fl High 35.1-43.9 [facility] Comment on above: Performed By: #### B TS, L500.4050, L100.0100, L3890.6006, L501.0250, L509.8002 ####[facility] [address] [place], [address] WBC (Bld) [#/Vol] 8.2 10*3/uL Normal 4.4-11.0 [facility] Comment on above: Performed By: #### B TS, L500.4050, L100.0100, L3890.6006, L501.0250, L509.8002 ####[facility] [address] [place], [address] Carbon dioxide, total [Moles /volume] in Central venous bloodOrdered By: Joyce Bolanos on 02-24-2025 CO2 [Moles/Vol] 20.5 mmol/L Low 21.0-32.0 [facility] Chloride assayOrdered By: Shakir Bolanos on 02-24-2025 Chloride [Moles/Vol] 102 mmol/L 98-108 [facility] Comprehensive Metabolic Prof ilon 02-24-2025 Albumin [Mass/Vol] 3.6 g/dL Normal 3.5-5.0 [facility] Comment on above: Performed By: #### B TS, L500.4050, L100.0100, L3890.6006, L501.0250, L509.8002 ####[facility] [address] [place], [address] Albumin/Globulin [Mass ratio] 1.4 {ratio} Normal 0.9-2.4 [facility] Comment on above: Performed By: #### B TS, L500.4050, L100.0100, L3890.6006, L501.0250, L509.8002 ####[facility] [address] [place], [address] ALK PHOS 83 U/L Normal 35-104 [facility] Comment on above: Performed By: #### B TS, L500.4050, L100.0100, L3890.6006, L501.0250, L509.8002 ####[facility] [address] [place], [address] ALT [Catalytic activity/Vol] 20 U/L Normal <=34 [facility] Comment on above: Performed By: #### B TS, L500.4050, L100.0100, L3890.6006, L501.0250, L509.8002 ####[facility] [address] [place], [address] AST [Catalytic activity/Vol] 22 U/L Normal <=31 [facility] Comment on above: Performed By: #### B TS, L500.4050, L100.0100, L3890.6006, L501.0250, L509.8002 ####[facility] [address] [place], [address] Bilirubin [Mass/Vol] 0.28 mg/dL Normal 0.00-1.30 [facility] Comment on above: Performed By: #### B TS, L500.4050, L100.0100, L3890.6006, L501.0250, L509.8002 ####[facility] [address] [place], [address] BUN/CRE 9.4 RATIO Low 10-20 [facility] Comment on above: Performed By: #### B TS, L500.4050, L100.0100, L3890.6006, L501.0250, L509.8002 ####[facility] [address] [place], [address] Calcium [Mass/Vol] 9.1 mg/dL Normal 7.6-11.0 [facility] Comment on above: Performed By: #### B TS, L500.4050, L100.0100, L3890.6006, L501.0250, L509.8002 ####[facility] [address] [place], [address] Chloride [Moles/Vol] 102 mmol/L Normal 98-108 [facility] Comment on above: Performed By: #### B TS, L500.4050, L100.0100, L3890.6006, L501.0250, L509.8002 ####[facility] [address] [place], [address] CO2 [Moles/Vol] 20.5 mmol/L Low 21.0-32.0 [facility] Comment on above: Performed By: #### B TS, L500.4050, L100.0100, L3890.6006, L501.0250, L509.8002 ####[facility] [address] [place], [address] Creatinine [Mass/Vol] 0.71 mg/dL Normal 0.70-1.20 [facility] Comment on above: Performed By: #### B TS, L500.4050, L100.0100, L3890.6006, L501.0250, L509.8002 ####[facility] [address] [place], [address] GAP 12 Normal 5-15 [facility] Comment on above: Performed By: #### B TS, L500.4050, L100.0100, L3890.6006, L501.0250, L509.8002 ####[facility] [address] [place], [address] GFR/1.73 sq M.predicted among non-blacks MDRD (S/P/Bld) [Vol rate/Area] 116 mL/min/{1.73_m2} Normal >60 [facility] Comment on above: Result Comment: mL/m in/1.73m2 CKD-EPI Creatinine Equation (2020) Performed By: #### B TS, L500.4050, L100.0100, L3890.6006, L501.0250, L509.8002 ####[facility] [address] [place], [address] Globulin (S) [Mass/Vol] 2.6 g/dL Normal 2.2-4.2 [facility] Comment on above: Performed By: #### B TS, L500.4050, L100.0100, L3890.6006, L501.0250, L509.8002 ####[facility] [address] [place], [address] Glucose [Mass/Vol] 124 mg/dL High 70-99 [facility] Comment on above: Performed By: #### B TS, L500.4050, L100.0100, L3890.6006, L501.0250, L509.8002 ####[facility] [address] [place], [address] Potassium [Moles/Vol] 3.3 mmol/L Normal 3.3-5.1 [facility] Comment on above: Performed By: #### B TS, L500.4050, L100.0100, L3890.6006, L501.0250, L509.8002 ####[facility] [address] [place], [address] Sodium [Moles/Vol] 134 mmol/L Normal 133-145 [facility] Comment on above: Performed By: #### B TS, L500.4050, L100.0100, L3890.6006, L501.0250, L509.8002 ####[facility] [address] [place], [address] T PROT 6.2 g/dL Normal 5.9-8.4 [facility] Comment on above: Performed By: #### B TS, L500.4050, L100.0100, L3890.6006, L501.0250, L509.8002 ####[facility] [address] [place], [address] Urea nitrogen [Mass/Vol] 7 mg/dL Normal 4-19 [facility] Comment on above: Performed By: #### B TS, L500.4050, L100.0100, L3890.6006, L501.0250, L509.8002 ####[facility] [address] [place], [address] Eosinophil percentageOrdered By: Joyce Bolanos on 02-24-2025 Eosinophils/100 WBC (Bld) 4.1 % 0-5 [facility] Erythrocyte distribution wid th ratioOrdered By: Joyce Bolanos on 02-24-2025 Erythrocyte distribution width (RBC) [Ratio] 13.3 % 11.6-14.6 [facility] Erythrocyte distribution wid th standard deviationOrdered By: Joyce Bolanos on 02-24-2025 Erythrocyte distribution width (RBC) [Ratio] 45.4 fl High 35.1-43.9 [facility] Glomerular filtration rate ( GFR) estimation/1.73 sq m using serum, plasma, or whole bOrdered By: Joyce Bolanos on 02-24-2025 GFR/1.73 sq M.predicted among non-blacks MDRD (S/P/Bld) [Vol rate/Area] 116 mL/min/{1.73_m2} >60 [facility] Comment on above: mL/min/1.73m2 CKD-EP I Creatinine Equation (2020) Glucose Challenge Gest 1H 50 wallace 02-24-2025 GLU GEST 50g 1H 124 mg/dL Normal 70-140 [facility] Comment on above: Performed By: #### B TS, L500.4050, L100.0100, L3890.6006, L501.0250, L509.8002 ####[facility] [address] [place], [address] HIVon 02-24-2025 HIV Non-Reactive Normal Nonreactive [facility] Comment on above: Result Comment: Non- ReactiveReactiveRepeatedly reactive samples must be confirmed according [facility] recommended confirmatory algorithms. The subresults foreither HIVAG or AHIV can be used as an aid in the selectionof the confirmation algorithm for reactive samples.Send out specimens with Reactive results to [facility] forconfirmation.Order the HIV antibody detection and differentiation:lc#[id number] Performed By: #### B TS, L500.4050, L100.0100, L3890.6006, L501.0250, L509.8002 ####[facility] [address] [place], [address] Hematocrit Auto (Bld) [Volum e fraction]Ordered By: Joyce Bolanos on 02-24-2025 Hematocrit (Bld) [Volume fraction] 27.8 % Low 37-47 [facility] Hemoglobin measurementOrdere d By: Joyce Bolanos on 02-24-2025 Hemoglobin (Bld) [Mass/Vol] 10.0 g/dL Low 12.0-15.0 [facility] Immature granulocytes/100 WB C Auto (Bld)Ordered By: Joyce Bolanos on 02-24-2025 Immature granulocytes/100 WBC (Bld) 0.400 % 0.0-0.9 [facility] Comment on above: IG% - Immature Granu locytes (promyelocytes, myelocytes and metamyelocytes) > 1% indicates that a LEFT SHIFT is Present. Laboratory - Chemistry and C hemistry - challengeOrdered By: oJyce Bolanos on 02-24-2025 AST [Catalytic activity/Vol] 22 U/L <32 [facility] Laboratory - Chemistry and C hemistry - challengeOrdered By: Antony Correa on 02-24-2025 Glucose Ql (U) Negative [facility] Laboratory - UrinalysisOrder ed By: Antony Correa on 02-24-2025 Protein Ql (U) Negative [facility] MCV (mean corpuscular volume ) determinationOrdered By: Joyce Bolanos on 02-24-2025 MCV (RBC) [Entitic vol] 93.6 fL 81-99 [facility] Mean corpuscular hemoglobin (MCH) determinationOrdered By: Joyce Bolanos on 02-24-2025 MCH (RBC) [Entitic mass] 33.7 pg High 27.0-32.0 [facility] Mean corpuscular hemoglobin concentration (MCHC) determinationOrdered By: Joyce Bolanos on 02-24-2025 MCHC (RBC) [Mass/Vol] 36.0 g/dL 32-36 [facility] Mean platelet volume determi nationOrdered By: Joyce Bolanos on 02-24-2025 Platelet mean volume (Bld) [Entitic vol] 9.8 fL 6.2-12.0 [facility] Monocyte percentageOrdered B y: Joyce Bolanos on 02-24-2025 Monocytes/100 WBC (Bld) 5.6 % 0-10 [facility] Neutrophil percentageOrdered By: Jyoce Bolanos on 02-24-2025 Neutrophils/100 WBC (Bld) 77.0 % High 47-70 [facility] No Panel InformationOrdered By: Joyce Bolanos on 02-24-2025 HIV (1&2) Antibody Non-Reactive Nonreactive [facility] Comment on above: Non-ReactiveReactive Repeatedly reactive samples must be confirmed according to CDC recommended confirmatory algorithms. The subresults for either HIVAG or AHIV can be used as an aid in the selection of the confirmation algorithm for reactive samples.Send out specimens with Reactive results to [facility] for confirmation.Order the HIV antibody detection and differentiation: #[id number] Nucleated red blood cell per centageOrdered By: Joyce Bolanos on 02-24-2025 Nucleated RBC/100 WBC (Bld) [Ratio] 0 % 0-5 [facility] Geological Technician Office Visit Reporton 02-24-2025 Geological Technician Office Visit Report Normal [facility] Platelet countOrdered By: Shakir Bolanos on 02-24-2025 Platelets (Bld) [#/Vol] 210 10*3/uL 150-450 [facility] Potassium measurement (mass/ volume)Ordered By: Joyce Bolanos on 02-24-2025 Potassium (Unsp spec) [Mass/Vol] 3.3 mmol/L 3.3-5.1 [facility] RBC Auto (Bld) [#/Vol]Ordere d By: Joyce Bolanos on 02-24-2025 RBC (Bld) [#/Vol] 2.97 10*6/uL Low 4.2-5.4 [facility] Serum creatinine measurement (mass/volume)Ordered By: Joyce Bolanos on 02-24-2025 Creatinine [Mass/Vol] 0.71 mg/dL 0.70-1.20 [facility] Serum globulin measurementOr dered By: Joyce Bolanos on 02-24-2025 Globulin (S) [Mass/Vol] 2.6 g/dL 2.2-4.2 [facility] Serum glucose measurement (m ass/volume)Ordered By: Joyce Bolanos on 02-24-2025 Glucose [Mass/Vol] 124 mg/dL 70-140 [facility] Serum or plasma alanine cerda otransferase (ALT) measurementOrdered By: Joyce Bolanos on 02-24-2025 ALT [Catalytic activity/Vol] 20 U/L <35 [facility] Serum or plasma albumin liza urement (mass/volume)Ordered By: Joyce Bolanos on 02-24-2025 Albumin [Mass/Vol] 3.6 g/dL 3.5-5.0 [facility] Serum or plasma albumin/glob ulin mass ratioOrdered By: Joyce Bolanos on 02-24-2025 Albumin/Globulin [Mass ratio] 1.4 {ratio} 0.9-2.4 [facility] Serum or plasma alkaline johnie sphatase measurementOrdered By: Joyce Bolanos on 02-24-2025 ALP [Catalytic activity/Vol] 83 U/L 35-104 [facility] Serum or plasma calcium liza urement (mass/volume)Ordered By: Joyce Bolanos on 02-24-2025 Calcium [Mass/Vol] 9.1 mg/dL 7.6-11.0 [facility] Serum or plasma urea nitroge n measurement (mass/volume)Ordered By: Joyce Bolanos on 02-24-2025 Urea nitrogen [Mass/Vol] 7 mg/dL 4-19 [facility] Sodium levelOrdered By: Qian Bolanos on 02-24-2025 Sodium [Moles/Vol] 134 mmol/L 133-145 [facility] Syphilis Antibodieson 2024 Syphilis Abs Non-Reactive Normal Nonreactive [facility] Comment on above: Performed By: #### B TS, L500.4050, L100.0100, L3890.6006, L501.0250, L509.8002 ####[facility] [address] [place], [place], [id number] Total proteinOrdered By: Shiva Bolanos on 02-24-2025 Protein [Mass/Vol] 6.2 g/dL 5.9-8.4 [facility] Type AND Screenon 02-24-2025 Ab SCREEN GEL Negative Normal [facility] Comment on above: Order Comment: PN Performed By: #### B TS, L500.4050, L100.0100, L3890.6006, L501.0250, L509.8002 ####[facility] [address] [place], [address] White blood cell (WBC) count Ordered By: Joyce Bolanos on 02-24-2025 WBC (Bld) [#/Vol] 8.2 10*3/uL 4.4-11.0 [facility] Laboratory - Chemistry and C hemistry - challengeOrdered By: Joyce Bolanos on 02-03-2025 Glucose Ql (U) Negative [facility] Laboratory - UrinalysisOrder ed By: Joyce Bolanos on 02-03-2025 Protein Ql (U) Negative [facility] Geological Technician Office Visit Reporton 02-03-2025 Geological Technician Office Visit Report Normal [facility] Absolute lymphocyte countOrd ered By: Antony Correa on 01-09-2025 Lymphocytes Auto (Unsp spec) [#/Vol] 1.29 10*3/uL 0.83-4.51 [facility] Absolute neutrophil countOrd ered By: Antony Correa on 01-09-2025 Neutrophils (Bld) [#/Vol] 8.6 10*3/uL High 2.0-7.7 [facility] Anion gap in Serum or Plasma Ordered By: Antony Correa on 01-09-2025 Anion gap [Moles/Vol] 11 mmol/L 5-15 [facility] Automated lymphocyte count a s percentage of total leukocytesOrdered By: Antony Correa on 01-09-2025 Lymphocytes/100 WBC Auto (Unsp spec) 11.7 % Low 19-41 [facility] BUN/creatinine ratioOrdered By: Antony Correa on 01-09-2025 Urea nitrogen/Creatinine [Mass ratio] 7.8 mg/mg Low 10-20 [facility] Basophil percentageOrdered B y: Antony Correa on 01-09-2025 Basophils/100 WBC (Bld) 0.3 % 0-1 [facility] Bilirubin, totalOrdered By: Antony Correa on 01-09-2025 Bilirubin [Mass/Vol] 0.25 mg/dL 0.00-1.30 [facility] CBC W/Diff, Automatedon 12-22-2024 Absolute Lymph 1.29 X10 3/uL Normal 0.83-4.51 [facility] Comment on above: Performed By: #### L 500.4050, L100.0100 ####[facility] [address] [place], [address] Absolute Neut 8.6 X10 3/uL High 2.0-7.7 [facility] Comment on above: Performed By: #### L 500.4050, L100.0100 ####[facility] [address] [place], [address] Basophils/100 WBC (Bld) 0.3 % Normal 0-1 [facility] Comment on above: Performed By: #### L 500.4050, L100.0100 ####[facility] [address] [place], [address] Eosinophils/100 WBC (Bld) 4.3 % Normal 0-5 [facility] Comment on above: Performed By: #### L 500.4050, L100.0100 ####[facility] [address] [place], [address] Erythrocyte distribution width (RBC) [Ratio] 13.5 % Normal 11.6-14.6 [facility] Comment on above: Performed By: #### L 500.4050, L100.0100 ####[facility] [address] [place], [address] Hematocrit (Bld) [Volume fraction] 30.2 % Low 37-47 [facility] Comment on above: Performed By: #### L 500.4050, L100.0100 ####[facility] [address] [place], [address] Hemoglobin (Bld) [Mass/Vol] 10.6 g/dL Low 12.0-15.0 [facility] Comment on above: Performed By: #### L 500.4050, L100.0100 ####[facility] [address] [place], [address] IG% 0.700 Normal 0.0-0.9 [facility] Comment on above: Result Comment: IG% - Immature Granulocytes (promyelocytes, myelocytes andmetamyelocytes) > 1% indicates that a LEFT SHIFT is Present. Performed By: #### L 500.4050, L100.0100 ####[facility] [address] [place], [address] Lymphocytes/100 WBC (Bld) 11.7 % Low 19-41 [facility] Comment on above: Performed By: #### L 500.4050, L100.0100 ####[facility] [address] [place], [address] MCH (RBC) [Entitic mass] 32.9 pg High 27.0-32.0 [facility] Comment on above: Performed By: #### L 500.4050, L100.0100 ####[facility] [address] [place], [address] MCHC (RBC) [Mass/Vol] 35.1 g/dL Normal 32-36 [facility] Comment on above: Performed By: #### L 500.4050, L100.0100 ####[facility] [address] [place], [address] MCV (RBC) [Entitic vol] 93.8 fL Normal 81-99 [facility] Comment on above: Performed By: #### L 500.4050, L100.0100 ####[facility] [address] [place], [address] Monocytes/100 WBC (Bld) 5.7 % Normal 0-10 [facility] Comment on above: Performed By: #### L 500.4050, L100.0100 ####[facility] [address] [place], [address] Neutrophils/100 WBC (Bld) 77.3 % High 47-70 [facility] Comment on above: Performed By: #### L 500.4050, L100.0100 ####[facility] [address] [place], [address] Nucleated RBC (Bld) [#/Vol] 0 10*3/uL Normal 0-5 [facility] Comment on above: Performed By: #### L 500.4050, L100.0100 ####[facility] [address] [place], [address] Platelet mean volume (Bld) [Entitic vol] 10.0 fL Normal 6.2-12.0 [facility] Comment on above: Performed By: #### L 500.4050, L100.0100 ####[facility] [address] [place], [address] Platelets (Bld) [#/Vol] 219 10*3/uL Normal 150-450 [facility] Comment on above: Performed By: #### L 500.4050, L100.0100 ####[facility] [address] [place], [address] RBC (Bld) [#/Vol] 3.22 10*6/uL Low 4.2-5.4 [facility] Comment on above: Performed By: #### L 500.4050, L100.0100 ####[facility] [address] [place], [address] RDW SD 46.3 fl High 35.1-43.9 [facility] Comment on above: Performed By: #### L 500.4050, L100.0100 ####[facility] [address] [place], [address] WBC (Bld) [#/Vol] 11.1 10*3/uL High 4.4-11.0 [facility] Comment on above: Performed By: #### L 500.4050, L100.0100 ####[facility] [address] [place], [address] Carbon dioxide, total [Moles /volume] in Central venous bloodOrdered By: Antony Correa on 01-09-2025 CO2 [Moles/Vol] 21.0 mmol/L 21.0-32.0 [facility] Chloride assayOrdered By: John Correa on 01-09-2025 Chloride [Moles/Vol] 104 mmol/L 98-108 [facility] Comprehensive Metabolic Prof ilon 01-09-2025 Albumin [Mass/Vol] 3.8 g/dL Normal 3.5-5.0 [facility] Comment on above: Performed By: #### L 500.4050, L100.0100 ####[facility] [address] [place], [address] Albumin/Globulin [Mass ratio] 1.4 {ratio} Normal 0.9-2.4 [facility] Comment on above: Performed By: #### L 500.4050, L100.0100 ####[facility] [address] [place], [address] ALK PHOS 77 U/L Normal 35-104 [facility] Comment on above: Performed By: #### L 500.4050, L100.0100 ####[facility] [address] [place], [address] ALT [Catalytic activity/Vol] 35 U/L Normal <=34 [facility] Comment on above: Performed By: #### L 500.4050, L100.0100 ####[facility] [address] [place], [address] AST [Catalytic activity/Vol] 22 U/L Normal <=31 [facility] Comment on above: Performed By: #### L 500.4050, L100.0100 ####[facility] [address] [place], [address] Bilirubin [Mass/Vol] 0.25 mg/dL Normal 0.00-1.30 [facility] Comment on above: Performed By: #### L 500.4050, L100.0100 ####[facility] [address] [place], [address] BUN/CRE 7.8 RATIO Low 10-20 [facility] Comment on above: Performed By: #### L 500.4050, L100.0100 ####[facility] [address] [place], [address] Calcium [Mass/Vol] 8.5 mg/dL Normal 7.6-11.0 [facility] Comment on above: Performed By: #### L 500.4050, L100.0100 ####[facility] [address] [place], [address] Chloride [Moles/Vol] 104 mmol/L Normal 98-108 [facility] Comment on above: Performed By: #### L 500.4050, L100.0100 ####[facility] [address] [place], [address] CO2 [Moles/Vol] 21.0 mmol/L Normal 21.0-32.0 [facility] Comment on above: Performed By: #### L 500.4050, L100.0100 ####[facility] [address] [place], [address] Creatinine [Mass/Vol] 0.62 mg/dL Low 0.70-1.20 [facility] Comment on above: Performed By: #### L 500.4050, L100.0100 ####[facility] [address] [place], [address] GAP 11 Normal 5-15 [facility] Comment on above: Performed By: #### L 500.4050, L100.0100 ####[facility] [address] [place], [address] GFR/1.73 sq M.predicted among non-blacks MDRD (S/P/Bld) [Vol rate/Area] 122 mL/min/{1.73_m2} Normal >60 [facility] Comment on above: Result Comment: mL/m in/1.73m2 CKD-EPI Creatinine Equation (2020) Performed By: #### L 500.4050, L100.0100 ####[facility] [address] [place], [address] Globulin (S) [Mass/Vol] 2.7 g/dL Normal 2.2-4.2 [facility] Comment on above: Performed By: #### L 500.4050, L100.0100 ####[facility] [address] [place], [address] Glucose [Mass/Vol] 71 mg/dL Normal 70-99 [facility] Comment on above: Performed By: #### L 500.4050, L100.0100 ####[facility] [address] [place], [address] Potassium [Moles/Vol] 3.7 mmol/L Normal 3.3-5.1 [facility] Comment on above: Performed By: #### L 500.4050, L100.0100 ####[facility] [address] [place], [address] Sodium [Moles/Vol] 137 mmol/L Normal 133-145 [facility] Comment on above: Performed By: #### L 500.4050, L100.0100 ####[facility] [address] [place], [address] T PROT 6.5 g/dL Normal 5.9-8.4 [facility] Comment on above: Performed By: #### L 500.4050, L100.0100 ####[facility] [address] [place], [address] Urea nitrogen [Mass/Vol] 5 mg/dL Normal 4-19 [facility] Comment on above: Performed By: #### L 500.4050, L100.0100 ####[facility] [address] [place], [address] Eosinophil percentageOrdered By: Antony Correa on 01-09-2025 Eosinophils/100 WBC (Bld) 4.3 % 0-5 [facility] Erythrocyte distribution wid th ratioOrdered By: Antony Correa on 01-09-2025 Erythrocyte distribution width (RBC) [Ratio] 13.5 % 11.6-14.6 [facility] Erythrocyte distribution wid th standard deviationOrdered By: Antony Correa on 01-09-2025 Erythrocyte distribution width (RBC) [Entitic vol] 46.3 fL High 35.1-43.9 [facility] Erythrocyte distribution width (RBC) [Ratio] 46.3 fl High 35.1-43.9 [facility] GFR/1.73 sq M.predicted shanti g non-blacks MDRD (S/P/Bld) [Vol rate/Area]Ordered By: Antony Correa on 01-09-2025 Estimated GFR (MDRD) Non-Af Amer 122 >60 [facility] Comment on above: mL/min/1.73m2 CKD-EP I Creatinine Equation (2020) Glomerular filtration rate ( GFR) estimation/1.73 sq m using serum, plasma, or whole bOrdered By: Antony Correa on 01-09-2025 GFR/1.73 sq M.predicted among non-blacks MDRD (S/P/Bld) [Vol rate/Area] 122 mL/min/{1.73_m2} >60 [facility] Comment on above: mL/min/1.73m2 CKD-EP I Creatinine Equation (2020) Hematocrit Auto (Bld) [Volum e fraction]Ordered By: Antony Correa on 01-09-2025 Hematocrit (Bld) [Volume fraction] 30.2 % Low 37-47 [facility] Hemoglobin measurementOrdere d By: Antony Correa on 01-09-2025 Hemoglobin (Bld) [Mass/Vol] 10.6 g/dL Low 12.0-15.0 [facility] Immature granulocytes/100 WB C Auto (Bld)Ordered By: Antony Correa on 01-09-2025 Immature granulocytes/100 WBC (Bld) 0.700 % 0.0-0.9 [facility] Comment on above: IG% - Immature Granu locytes (promyelocytes, myelocytes and metamyelocytes) > 1% indicates that a LEFT SHIFT is Present. Laboratory - Chemistry and C hemistry - challengeOrdered By: Antony Correa on 01-09-2025 AST [Catalytic activity/Vol] 22 U/L <32 [facility] Laboratory - Chemistry and C hemistry - challengeOrdered By: Tiffanie Bey on 01-09-2025 Glucose Ql (U) Negative [facility] Laboratory - UrinalysisOrder ed By: Tiffanie Bey on 01-09-2025 Protein Ql (U) Negative [facility] Lymphocytes Auto (Unsp spec) [#/Vol]Ordered By: Antony Correa on 01-09-2025 Lymphocytes (Bld) [#/Vol] 1.29 10*3/uL 0.83-4.51 [facility] Lymphocytes/100 WBC Auto (Un sp spec)Ordered By: Antony Correa on 01-09-2025 Lymphocytes/100 WBC (Bld) 11.7 % Low 19-41 [facility] MCV (mean corpuscular volume ) determinationOrdered By: Antony Correa on 01-09-2025 MCV (RBC) [Entitic vol] 93.8 fL 81-99 [facility] Mean corpuscular hemoglobin (MCH) determinationOrdered By: Antony Correa on 01-09-2025 MCH (RBC) [Entitic mass] 32.9 pg High 27.0-32.0 [facility] Mean corpuscular hemoglobin concentration (MCHC) determinationOrdered By: Antony Correa on 01-09-2025 MCHC (RBC) [Mass/Vol] 35.1 g/dL 32-36 [facility] Mean platelet volume determi nationOrdered By: Antony Correa on 01-09-2025 Platelet mean volume (Bld) [Entitic vol] 10.0 fL 6.2-12.0 [facility] Monocyte percentageOrdered B y: Antony Correa on 01-09-2025 Monocytes/100 WBC (Bld) 5.7 % 0-10 [facility] Neutrophil percentageOrdered By: Antony Correa on 01-09-2025 Neutrophils/100 WBC (Bld) 77.3 % High 47-70 [facility] Nucleated red blood cell per centageOrdered By: Antony Correa on 01-09-2025 Nucleated RBC/100 WBC (Bld) [Ratio] 0 % 0-5 [facility] Geological Technician Office Visit Reporton 01-09-2025 Geological Technician Office Visit Report Normal [facility] Platelet countOrdered By: John Correa on 01-09-2025 Platelets (Bld) [#/Vol] 219 10*3/uL 150-450 [facility] Potassium (Unsp spec) [Mass/ Vol]Ordered By: Antony Correa on 01-09-2025 Potassium [Moles/Vol] 3.7 mmol/L 3.3-5.1 [facility] Potassium measurement (mass/ volume)Ordered By: Antony Correa on 01-09-2025 Potassium (Unsp spec) [Mass/Vol] 3.7 mmol/L 3.3-5.1 [facility] RBC Auto (Bld) [#/Vol]Ordere d By: Antony Correa on 01-09-2025 RBC (Bld) [#/Vol] 3.22 10*6/uL Low 4.2-5.4 [facility] Serum creatinine measurement (mass/volume)Ordered By: Antony Correa on 01-09-2025 Creatinine [Mass/Vol] 0.62 mg/dL Low 0.70-1.20 [facility] Serum globulin measurementOr dered By: Antony Correa on 01-09-2025 Globulin (S) [Mass/Vol] 2.7 g/dL 2.2-4.2 [facility] Serum glucose measurement (m ass/volume)Ordered By: Antony Correa on 01-09-2025 Glucose [Mass/Vol] 71 mg/dL 70-99 [facility] Serum or plasma alanine cerda otransferase (ALT) measurementOrdered By: Antony Correa on 01-09-2025 ALT [Catalytic activity/Vol] 35 U/L <35 [facility] Serum or plasma albumin liza urement (mass/volume)Ordered By: Antony Correa on 01-09-2025 Albumin [Mass/Vol] 3.8 g/dL 3.5-5.0 [facility] Serum or plasma albumin/glob ulin mass ratioOrdered By: Antony Correa on 01-09-2025 Albumin/Globulin [Mass ratio] 1.4 {ratio} 0.9-2.4 [facility] Serum or plasma alkaline johnie sphatase measurementOrdered By: Antony Correa on 01-09-2025 ALP [Catalytic activity/Vol] 77 U/L 35-104 [facility] Serum or plasma calcium liza urement (mass/volume)Ordered By: Antony Correa on 01-09-2025 Calcium [Mass/Vol] 8.5 mg/dL 7.6-11.0 [facility] Serum or plasma urea nitroge n measurement (mass/volume)Ordered By: Antony Correa on 01-09-2025 Urea nitrogen [Mass/Vol] 5 mg/dL 4-19 [facility] Sodium levelOrdered By: Maria Del Rosario Correa on 01-09-2025 Sodium [Moles/Vol] 137 mmol/L 133-145 [facility] Total proteinOrdered By: Kenyatta Correa on 01-09-2025 Protein [Mass/Vol] 6.5 g/dL 5.9-8.4 [facility] White blood cell (WBC) count Ordered By: Antony Correa on 01-09-2025 WBC (Bld) [#/Vol] 11.1 10*3/uL High 4.4-11.0 [facility] L3410.9998on 12-20-2024 [facility] Misc. COMMENT Normal . [facility] Comment on above: Order Comment: [id number] 0BILE ACIDS Result Comment: Test Ordered: [id number] Bile Acids, Fractionated LCMSUrsodeoxycholic Acids 0.10 umol/L ES Reference Range: .Reference Range:All Ages: <1.9Cholic Acids 7.2 [H ] umol/L ES Reference Range: .Reference Range:All Ages: <2.2Chenodeoxycholic Acids 7.0 [H ] umol/L ES Reference Range: .Reference Range:All Ages: <5.8Deoxycholic Acids 4.5 [H ] umol/L ES Reference Range: .Reference Range:All Ages: <3.3Total Bile Acids 19 [H ] umol/L ES Reference Range: .This test was developed and its performance characteristicsdetermined by [facility]. It has not been cleared or approvedby the Food and Drug Administration.Reference Range:All Ages: <9.2Performed at: [facility] [address] [id number] Director: Shawn Edward MD, Phone: [phone] at: [address] [id number] Director: Nathan Thakur PhD, Phone: [phone] Performed By: #### L 3100.7950, L300.3900, L3200.0500, L3100.5850, L100.0500, L3400.1500, L500.4050, L803.2200, L3410.9998, L3400.1490, L300.4310 ####[facility] [address] [place], [place], [id number] Absolute lymphocyte countOrd ered By: Abby Carreon on 12-19-2024 Lymphocytes Auto (Unsp spec) [#/Vol] 1.35 10*3/uL 0.83-4.51 [facility] Absolute neutrophil countOrd ered By: Abby Carreon on 12-19-2024 Neutrophils (Bld) [#/Vol] 10.2 10*3/uL High 2.0-7.7 [facility] Automated lymphocyte count a s percentage of total leukocytesOrdered By: Abby Carreon on 12-19-2024 Lymphocytes/100 WBC Auto (Unsp spec) 10.6 % Low 19-41 [facility] BUN/creatinine ratioOrdered By: Abby Lipscombaidee on 12-19-2024 Urea nitrogen/Creatinine [Mass ratio] 11.5 mg/mg 10-20 [facility] Basophil percentageOrdered B y: Abby Lubinlazarus on 12-19-2024 Basophils/100 WBC (Bld) 0.3 % 0-1 [facility] Bilirubin, totalOrdered By: Abby Lipscombaidee on 12-19-2024 Bilirubin [Mass/Vol] 0.38 mg/dL 0.00-1.30 [facility] CBC W/Diff, Automatedon 11-24 Absolute Lymph 1.35 X10 3/uL Normal 0.83-4.51 [facility] Comment on above: Performed By: #### L 500.4050, L100.0100 ####[facility] [address] [place], [address] Absolute Neut 10.2 X10 3/uL High 2.0-7.7 [facility] Comment on above: Performed By: #### L 500.4050, L100.0100 ####[facility] [address] [place], [address] Basophils/100 WBC (Bld) 0.3 % Normal 0-1 [facility] Comment on above: Performed By: #### L 500.4050, L100.0100 ####[facility] [address] [place], [address] Eosinophils/100 WBC (Bld) 2.9 % Normal 0-5 [facility] Comment on above: Performed By: #### L 500.4050, L100.0100 ####[facility] [address] [place], [address] Erythrocyte distribution width (RBC) [Ratio] 13.2 % Normal 11.6-14.6 [facility] Comment on above: Performed By: #### L 500.4050, L100.0100 ####[facility] [address] [place], [address] Hematocrit (Bld) [Volume fraction] 32.6 % Low 37-47 [facility] Comment on above: Performed By: #### L 500.4050, L100.0100 ####[facility] [address] [place], [address] Hemoglobin (Bld) [Mass/Vol] 11.5 g/dL Low 12.0-15.0 [facility] Comment on above: Performed By: #### L 500.4050, L100.0100 ####[facility] [address] [place], [address] IG% 0.900 Normal 0.0-0.9 [facility] Comment on above: Result Comment: IG% - Immature Granulocytes (promyelocytes, myelocytes andmetamyelocytes) > 1% indicates that a LEFT SHIFT is Present. Performed By: #### L 500.4050, L100.0100 ####[facility] [address] [place], [address] Lymphocytes/100 WBC (Bld) 10.6 % Low 19-41 [facility] Comment on above: Performed By: #### L 500.4050, L100.0100 ####[facility] [address] [place], [address] MCH (RBC) [Entitic mass] 32.6 pg High 27.0-32.0 [facility] Comment on above: Performed By: #### L 500.4050, L100.0100 ####[facility] [address] [place], [address] MCHC (RBC) [Mass/Vol] 35.3 g/dL Normal 32-36 [facility] Comment on above: Performed By: #### L 500.4050, L100.0100 ####[facility] [address] [place], [address] MCV (RBC) [Entitic vol] 92.4 fL Normal 81-99 [facility] Comment on above: Performed By: #### L 500.4050, L100.0100 ####[facility] [address] [place], [address] Monocytes/100 WBC (Bld) 5.9 % Normal 0-10 [facility] Comment on above: Performed By: #### L 500.4050, L100.0100 ####[facility] [address] [place], [address] Neutrophils/100 WBC (Bld) 79.4 % High 47-70 [facility] Comment on above: Performed By: #### L 500.4050, L100.0100 ####[facility] [address] [place], [address] Nucleated RBC (Bld) [#/Vol] 0 10*3/uL Normal 0-5 [facility] Comment on above: Performed By: #### L 500.4050, L100.0100 ####[facility] [address] [place], [address] Platelet mean volume (Bld) [Entitic vol] 9.5 fL Normal 6.2-12.0 [facility] Comment on above: Performed By: #### L 500.4050, L100.0100 ####[facility] [address] [place], [address] Platelets (Bld) [#/Vol] 285 10*3/uL Normal 150-450 [facility] Comment on above: Performed By: #### L 500.4050, L100.0100 ####[facility] [address] [place], [address] RBC (Bld) [#/Vol] 3.53 10*6/uL Low 4.2-5.4 [facility] Comment on above: Performed By: #### L 500.4050, L100.0100 ####[facility] [address] [place], [address] RDW SD 43.2 fl Normal 35.1-43.9 [facility] Comment on above: Performed By: #### L 500.4050, L100.0100 ####[facility] [address] [place], [address] WBC (Bld) [#/Vol] 12.8 10*3/uL High 4.4-11.0 [facility] Comment on above: Performed By: #### L 500.4050, L100.0100 ####[facility] [address] [place], [address] Carbon dioxide measurementOr dered By: Abby Carreon on 12-19-2024 CO2 [Moles/Vol] 22.3 mmol/L 22.0-29.0 [facility] Chloride measurementOrdered By: Abby Carreon on 12-19-2024 Chloride [Moles/Vol] 104 mmol/L 96-108 [facility] Comprehensive Metabolic Prof ilon 12-19-2024 Albumin [Mass/Vol] 4.0 g/dL Normal 3.5-5.0 [facility] Comment on above: Performed By: #### L 500.4050, L100.0100 ####[facility] [address] [place], [address] Albumin/Globulin [Mass ratio] 1.4 {ratio} Normal 0.9-2.4 [facility] Comment on above: Performed By: #### L 500.4050, L100.0100 ####[facility] [address] [place], [address] ALK PHOS 77 U/L Normal 35-104 [facility] Comment on above: Performed By: #### L 500.4050, L100.0100 ####[facility] [address] [place], [address] ALT [Catalytic activity/Vol] 172 U/L High <=34 [facility] Comment on above: Performed By: #### L 500.4050, L100.0100 ####[facility] [address] [place], [address] Anion gap [Moles/Vol] 10 mmol/L Normal 5-15 [facility] Comment on above: Performed By: #### L 500.4050, L100.0100 ####[facility] [address] [place], [address] AST [Catalytic activity/Vol] 59 U/L High <=31 [facility] Comment on above: Performed By: #### L 500.4050, L100.0100 ####[facility] [address] [place], [address] Bilirubin [Mass/Vol] 0.38 mg/dL Normal 0.00-1.30 [facility] Comment on above: Performed By: #### L 500.4050, L100.0100 ####[facility] [address] [place], [address] BUN/CRE 11.5 RATIO Normal 10-20 [facility] Comment on above: Performed By: #### L 500.4050, L100.0100 ####[facility] [address] [place], [address] Calcium [Mass/Vol] 10.1 mg/dL Normal 7.6-11.0 [facility] Comment on above: Performed By: #### L 500.4050, L100.0100 ####[facility] [address] [place], [address] Chloride [Moles/Vol] 104 mmol/L Normal 96-108 [facility] Comment on above: Performed By: #### L 500.4050, L100.0100 ####[facility] [address] [place], [address] CO2 [Moles/Vol] 22.3 mmol/L Normal 22.0-29.0 [facility] Comment on above: Performed By: #### L 500.4050, L100.0100 ####[facility] [address] [place], [address] Creatinine [Mass/Vol] 0.6 mg/dL Normal 0.6-1.0 [facility] Comment on above: Performed By: #### L 500.4050, L100.0100 ####[facility] [address] [place], [address] GFR/1.73 sq M.predicted among non-blacks MDRD (S/P/Bld) [Vol rate/Area] 124 mL/min/{1.73_m2} Normal >60 [facility] Comment on above: Result Comment: mL/m in/1.73m2 CKD-EPI Creatinine Equation (2020) Performed By: #### L 500.4050, L100.0100 ####[facility] [address] [place], [address] Globulin (S) [Mass/Vol] 3.0 g/dL Normal 2.2-4.2 [facility] Comment on above: Performed By: #### L 500.4050, L100.0100 ####[facility] [address] [place], [address] Glucose [Mass/Vol] 85 mg/dL Normal 70-99 [facility] Comment on above: Performed By: #### L 500.4050, L100.0100 ####[facility] [address] [place], [address] Potassium [Moles/Vol] 3.8 mmol/L Normal 3.3-5.1 [facility] Comment on above: Performed By: #### L 500.4050, L100.0100 ####[facility] [address] [place], [address] Sodium [Moles/Vol] 136 mmol/L Normal 133-145 [facility] Comment on above: Performed By: #### L 500.4050, L100.0100 ####[facility] [address] [place], [address] T PROT 7.0 g/dL Normal 5.9-8.4 [facility] Comment on above: Performed By: #### L 500.4050, L100.0100 ####[facility] [address] [place], [address] Urea nitrogen [Mass/Vol] 7 mg/dL Normal 4-19 [facility] Comment on above: Performed By: #### L 500.4050, L100.0100 ####[facility] [address] [place], [address] Creatinine [Moles/Vol]Ordere d By: Abby Carreon on 12-19-2024 Creatinine [Mass/Vol] 0.6 mg/dL 0.6-1.0 [facility] Eosinophil percentageOrdered By: Abby Carreon on 12-19-2024 Eosinophils/100 WBC (Bld) 2.9 % 0-5 [facility] Erythrocyte distribution wid th ratioOrdered By: Abby Carreon on 12-19-2024 Erythrocyte distribution width (RBC) [Ratio] 13.2 % 11.6-14.6 [facility] Erythrocyte distribution wid th standard deviationOrdered By: Abby Carreon on 12-19-2024 Erythrocyte distribution width (RBC) [Entitic vol] 43.2 fL 35.1-43.9 [facility] Erythrocyte distribution width (RBC) [Ratio] 43.2 fl 35.1-43.9 [facility] GFR/1.73 sq M.predicted shanti g non-blacks MDRD (S/P/Bld) [Vol rate/Area]Ordered By: Abby Carreon on 12-19-2024 Estimated GFR (MDRD) Non-Af Amer 124 >60 [facility] Comment on above: mL/min/1.73m2 CKD-EP I Creatinine Equation (2020) Glomerular filtration rate ( GFR) estimation/1.73 sq m using serum, plasma, or whole bOrdered By: Abby Carreon on 12-19-2024 GFR/1.73 sq M.predicted among non-blacks MDRD (S/P/Bld) [Vol rate/Area] 124 mL/min/{1.73_m2} >60 [facility] Comment on above: mL/min/1.73m2 CKD-EP I Creatinine Equation (2020) Hematocrit Auto (Bld) [Volum e fraction]Ordered By: Abby Carreon on 12-19-2024 Hematocrit (Bld) [Volume fraction] 32.6 % Low 37-47 [facility] Hemoglobin measurementOrdere d By: Abby Carreon on 12-19-2024 Hemoglobin (Bld) [Mass/Vol] 11.5 g/dL Low 12.0-15.0 [facility] Immature granulocytes/100 WB C Auto (Bld)Ordered By: Abby Carreon on 12-19-2024 Immature granulocytes/100 WBC (Bld) 0.900 % 0.0-0.9 [facility] Comment on above: IG% - Immature Granu locytes (promyelocytes, myelocytes and metamyelocytes) > 1% indicates that a LEFT SHIFT is Present. Laboratory - Chemistry and C hemistry - challengeOrdered By: Abby Carreon on 12-19-2024 AST [Catalytic activity/Vol] 59 U/L High <32 [facility] Lymphocytes Auto (Unsp spec) [#/Vol]Ordered By: Abby Carreon on 12-19-2024 Lymphocytes (Bld) [#/Vol] 1.35 10*3/uL 0.83-4.51 [facility] Lymphocytes/100 WBC Auto (Un sp spec)Ordered By: Abby Carreon on 12-19-2024 Lymphocytes/100 WBC (Bld) 10.6 % Low 19-41 [facility] MCV (mean corpuscular volume ) determinationOrdered By: Abby Carreon on 12-19-2024 MCV (RBC) [Entitic vol] 92.4 fL 81-99 [facility] Mean corpuscular hemoglobin (MCH) determinationOrdered By: Abby Carreon on 12-19-2024 MCH (RBC) [Entitic mass] 32.6 pg High 27.0-32.0 [facility] Mean corpuscular hemoglobin concentration (MCHC) determinationOrdered By: Abby Carreon on 12-19-2024 MCHC (RBC) [Mass/Vol] 35.3 g/dL 32-36 [facility] Mean platelet volume determi nationOrdered By: Abby Carreon on 12-19-2024 Platelet mean volume (Bld) [Entitic vol] 9.5 fL 6.2-12.0 [facility] Monocyte percentageOrdered B y: Abby Carreon on 12-19-2024 Monocytes/100 WBC (Bld) 5.9 % 0-10 [facility] Neutrophil percentageOrdered By: Abby Carreon on 12-19-2024 Neutrophils/100 WBC (Bld) 79.4 % High 47-70 [facility] Nucleated red blood cell per centageOrdered By: Abby Carreon on 12-19-2024 Nucleated RBC/100 WBC (Bld) [Ratio] 0 % 0-5 [facility] Platelet countOrdered By: Isamel Carreon on 12-19-2024 Platelets (Bld) [#/Vol] 285 10*3/uL 150-450 [facility] RBC Auto (Bld) [#/Vol]Ordere d By: Abby Carreon on 12-19-2024 RBC (Bld) [#/Vol] 3.53 10*6/uL Low 4.2-5.4 [facility] Serum globulin measurementOr dered By: Abby Carreon on 12-19-2024 Globulin (S) [Mass/Vol] 3.0 g/dL 2.2-4.2 [facility] Serum glucose measurement (m ass/volume)Ordered By: Abby Carreon on 12-19-2024 Glucose [Mass/Vol] 85 mg/dL 70-99 [facility] Serum or plasma alanine cerda otransferase (ALT) measurementOrdered By: Abby Carreon on 12-19-2024 ALT [Catalytic activity/Vol] 172 U/L High <35 [facility] Serum or plasma albumin liza urement (mass/volume)Ordered By: Abby Carreon on 12-19-2024 Albumin [Mass/Vol] 4.0 g/dL 3.5-5.0 [facility] Serum or plasma albumin/glob ulin mass ratioOrdered By: Abby Carreon on 12-19-2024 Albumin/Globulin [Mass ratio] 1.4 {ratio} 0.9-2.4 [facility] Serum or plasma alkaline johnie sphatase measurementOrdered By: Abby Carreon on 12-19-2024 ALP [Catalytic activity/Vol] 77 U/L 35-104 [facility] Serum or plasma anion gap de termination (moles/volume)Ordered By: Abby Carreon on 12-19-2024 Anion gap [Moles/Vol] 10 mmol/L 5-15 [facility] Serum or plasma calcium liza urement (mass/volume)Ordered By: Abby Carreon on 12-19-2024 Calcium [Mass/Vol] 10.1 mg/dL 7.6-11.0 [facility] Serum or plasma creatinine m easurement (moles/volume)Ordered By: Abby Carreon on 12-19-2024 Creatinine [Moles/Vol] 0.6 mg/dL 0.6-1.0 [facility] Serum or plasma potassium me asurementOrdered By: Abby Carreon on 12-19-2024 Potassium [Moles/Vol] 3.8 mmol/L 3.3-5.1 [facility] Serum or plasma sodium measu rement (moles/volume)Ordered By: Abby Carroen on 12-19-2024 Sodium [Moles/Vol] 136 mmol/L 133-145 [facility] Serum or plasma urea nitroge n measurement (mass/volume)Ordered By: Abby Carreon on 12-19-2024 Urea nitrogen [Mass/Vol] 7 mg/dL 4-19 [facility] Total proteinOrdered By: Rudy Carreon on 12-19-2024 Protein [Mass/Vol] 7.0 g/dL 5.9-8.4 [facility] White blood cell (WBC) count Ordered By: Abby Carreon on 12-19-2024 WBC (Bld) [#/Vol] 12.8 10*3/uL High 4.4-11.0 [facility] Antinuclear Antibody, IFAon 12-18-2024 MICHAEL, IFA Negative Normal . [facility] Comment on above: Result Comment: Nega tive <1:80 Borderline 1:80 Positive >1:80ICAP nomenclature: AC-0For more information about Hep-2 cell patterns useANApatterns.org, the official website for theInternational Consensus on Antinuclear Antibody (MICHAEL)Patterns (ICAP).Performed at: - [facility] [id number] Director: Nathan Thakur PhD, Phone: [phone] Performed By: #### L 3100.7950, L300.3900, L3200.0500, L3100.5850, L100.0500, L3400.1500, L500.4050, L803.2200, L3410.9998, L3400.1490, L300.4310 ####[facility] [address] [place], [place], [address] L3410.9998on 12-17-2024 [facility]. COMMENT Normal . [facility] Comment on above: Order Comment: 17 WE EKS 1 DAY ON 12/12/24 WCY179.4 LB1 FETUS PT IS CAUC. NO INSULIN. NO DONOR EGG.[id number] SERUM RT Result Comment: Test Ordered: [id number] AFP, Serum, Open Spina BifidaTest Results: TG Reference Range: .Please refer to the following specimen for additional labresults.Please refer to [phone] for results.Performed at: [address] [id number] Director: Nathan Thakur PhD, Phone: [phone] at: [facility] [id number] [place], [place] [id number] Director: Cristina Mora [facility], Phone: [phone] AMENDED REPORT 12/17/24 1108 [facility]. previously reported as: COMMENTTest Ordered: [id number] AFP, Serum, Open Spina BifidaResults NPNOLAB Reference Range: .Test Results: TG Reference Range: .Please refer to the following specimen for additional labresults.Please refer to [phone] for results.Gest. Age on Collection Date NPNOLAB Reference Range: .Gestat. Age Based On NPNOLAB Reference Range: .Maternal Age At GLENN NPNOLAB Reference Range: .Race NPNOLAB Reference Range: .Weight NPNOLAB Reference Range: .Insulin Dep Diabetes NPNOLAB Reference Range: .Multiple Gestation NPNOLAB Reference Range: .AFP ValueNOLAB Reference Range: .Test not performedAFP MoM NPNOLAB Reference Range: .OSBR Risk 1 IN NPNOLAB Reference Range: .Interpretation NPNOLAB Reference Range: .Comment: NPNOLAB Reference Range: .Tracking NPNOLAB Reference Range: .Performed at: [address] [id number] Director: Nathan Thakur PhD, Phone: [phone] at: [facility] [id number] [employer], [place], [place] [id number] Director: Cristina Mora [facility], Phone: [phone] Performed By: #### L 500.4050, L3410.9998 ####[facility] [address] [place], [place], [address] Anti-Smooth Muscle ABSon ANTISMOOTH MUSC 3 Units Normal 0-19 [facility] Comment on above: Result Comment: Nega tive 0 - 19 Weak positive 20 - 30 Moderate to strong positive >30 Actin Antibodies are found in 52-85% of patients with autoimmune hepatitis or chronic active hepatitis and in 22% of patients with primary biliary cirrhosis. Performed By: #### L 3100.7950, L300.3900, L3200.0500, L3100.5850, L100.0500, L3400.1500, L500.4050, L803.2200, L3410.9998, L3400.1490, L300.4310 ####[facility] [address] [place], [address] CMV Acute Antibody IgMon CMV Ab, IgM < 30.0 Normal 0.0-29.9 [facility] Comment on above: Result Comment: Nega tive <30.0 Equivocal 30.0 - 34.9 Positive >34.9A positive result is generally indicative of acuteinfection, reactivation or persistent IgM production.Performed at: [employer] [id number] Director: Nathan Thakur PhD, Phone: [phone] Performed By: #### L 3100.7950, L300.3900, L3200.0500, L3100.5850, L100.0500, L3400.1500, L500.4050, L803.2200, L3410.9998, L3400.1490, L300.4310 ####[facility] [address] [place], [address] CMV Antibody IgGon CMV AB IgG < 0.60 Normal 0.00-0.59 [facility] Comment on above: Result Comment: Nega tive <0.60 Equivocal 0.60 - 0.69 Positive >0.69 Performed By: #### L 3100.7950, L300.3900, L3200.0500, L3100.5850, L100.0500, L3400.1500, L500.4050, L803.2200, L3410.9998, L3400.1490, L300.4310 ####[facility] [address] [facility], [address] EBV Acute Prof IgG / IgMon 0 2- EB Ab VCA, IgG 74.5 U/mL High 0.0-17.9 [facility] Comment on above: Result Comment: Nega tive <18.0 Equivocal 18.0 - 21.9 Positive >21.9 Performed By: #### L 3100.7950, L300.3900, L3200.0500, L3100.5850, L100.0500, L3400.1500, L500.4050, L803.2200, L3410.9998, L3400.1490, L300.4310 ####[facility] [address] [place], [address] EBV Ab VCA, IgM < 36.0 Normal 0.0-35.9 [facility] Comment on above: Result Comment: Nega tive <36.0 Equivocal 36.0 - 43.9 Positive >43.9 Performed By: #### L 3100.7950, L300.3900, L3200.0500, L3100.5850, L100.0500, L3400.1500, L500.4050, L803.2200, L3410.9998, L3400.1490, L300.4310 ####[facility] [address] [place], [address] EBV NuAg Ab,IgG 21.4 U/mL High 0.0-17.9 [facility] Comment on above: Result Comment: A se cond sample should be collected and tested no less than2-4 weeks. Negative <18.0 Equivocal 18.0 - 21.9 Positive >21.9 Performed By: #### L 3100.7950, L300.3900, L3200.0500, L3100.5850, L100.0500, L3400.1500, L500.4050, L803.2200, L3410.9998, L3400.1490, L300.4310 ####[facility] [address] [place], [address] INTERPRETATION Comment Normal . [facility] Comment on above: Result Comment: EBV Interpretation ChartKey: Antibody Present + Antibody Absent -Interpretation VCA-IgM VCA-IgG EBNA-IgGNo previous infection/ - - -SusceptiblePrimary infection (new + + -or recent)Past Infection +or- + +See comment below* + - -*Results indicate infection with EBV at some time however cannot predict the timing of the infection since antibodies to EBNA usually develop after primary infection or, alternatively, approximately 5-10% of patients with EBV never develop antibodies to EBNA. Performed By: #### L 3100.7950, L300.3900, L3200.0500, L3100.5850, L100.0500, L3400.1500, L500.4050, L803.2200, L3410.9998, L3400.1490, L300.4310 ####[facility] [address] [place], [place], [id number]) IgG Subclasseson 12-16-2024 IgG, SUBCLASS 1 521 mg/dL Normal 248-810 [facility] Comment on above: Performed By: #### L 3100.7950, L300.3900, L3200.0500, L3100.5850, L100.0500, L3400.1500, L500.4050, L803.2200, L3410.9998, L3400.1490, L300.4310 ####[facility] [address] [place], [address] IgG, SUBCLASS 2 339 mg/dL Normal 130-555 [facility] Comment on above: Performed By: #### L 3100.7950, L300.3900, L3200.0500, L3100.5850, L100.0500, L3400.1500, L500.4050, L803.2200, L3410.9998, L3400.1490, L300.4310 ####[facility] [address] [place], [address] IgG, SUBCLASS 3 43 mg/dL Normal 15-102 [facility] Comment on above: Performed By: #### L 3100.7950, L300.3900, L3200.0500, L3100.5850, L100.0500, L3400.1500, L500.4050, L803.2200, L3410.9998, L3400.1490, L300.4310 ####[facility] [address] [place], [address] IgG, SUBCLASS 4 12 mg/dL Normal 2-96 [facility] Comment on above: Performed By: #### L 3100.7950, L300.3900, L3200.0500, L3100.5850, L100.0500, L3400.1500, L500.4050, L803.2200, L3410.9998, L3400.1490, L300.4310 ####[facility] [address] [place], [address] IGG,QUANT 897 mg/dL Normal 586-1602 [facility] Comment on above: Performed By: #### L 3100.7950, L300.3900, L3200.0500, L3100.5850, L100.0500, L3400.1500, L500.4050, L803.2200, L3410.9998, L3400.1490, L300.4310 ####[facility] [address] [place], [address] Abdomen Limitedon 12-14-2024 Abdomen Limited Normal [facility] Actin IgG QnOrdered By: Keon Carreon on 12-13-2024 Anti-Smooth Muscle Antibody 3 Units 0-19 [facility] Comment on above: Negative 0 - 19 Weak positive 20 - 30 Moderate to strong positive >30 Actin Antibodies are found in 52-85% of patients with autoimmune hepatitis or chronic active hepatitis and in 22% of patients with primary biliary cirrhosis. Activated partial thrombopla stin time (aPTT) in platelet poor plasma by coagulation aOrdered By: Abby Carreon on 12-13-2024 aPTT Coag (PPP) [Time] 32.9 s 24.1-36.2 [facility] Albumin to globulin ratioOrd ered By: Abby Carreon on 12-13-2024 Albumin/Globulin [Mass ratio] 0.8 {ratio} Low 0.9-2.4 [facility] Comment on above: Performed By: #### L 3100.7950, L300.3900, L3200.0500, L3100.5850, L100.0500, L3400.1500, L500.4050, L803.2200, L3410.9998, L3400.1490, L300.4310 ####[facility] [address] [place], [address] Antinuclear antibody (MICHAEL) a ssayOrdered By: Abby Carreon on 12-13-2024 Anti-Nuclear Antibody Screen Negative . [facility] Comment on above: Negative <1:80 Borde rline 1:80 Positive >1:80ICAP nomenclature: AC-0For more information about Hep-2 cell patterns useANApatterns.org, the official website for theInternational Consensus on Antinuclear Antibody (MICHAEL)Patterns (ICAP).Performed at: [facility] [place] [id number] Director: Nathan Thakur PhD, Phone: [phone] Bilirubin, totalOrdered By: Abby Carreon on 12-13-2024 Bilirubin [Mass/Vol] 0.50 mg/dL Normal 0.20-1.00 [facility] Comment on above: For patients on eltr ombopag therapy, use of Dimension [place] TBIL is not recommended. Result Comment: For patients on eltrombopag therapy, use of Dimension Natoma TBIL is not recommended. Performed By: #### L 3100.7950, L300.3900, L3200.0500, L3100.5850, L100.0500, L3400.1500, L500.4050, L803.2200, L3410.9998, L3400.1490, L300.4310 ####[facility] [address] [place], [place], [phone] Blood urea nitrogen (BUN)/cr eatinine ratioOrdered By: Abby Carreon on 12-13-2024 Urea nitrogen/Creatinine [Mass ratio] 13.3 mg/mg 10-20 [facility] CBC-Complete Blood Cnt No Di ffon 12-13-2024 Erythrocyte distribution width (RBC) [Ratio] 12.8 % Normal 11.6-14.6 [facility] Comment on above: Performed By: #### L 3100.7950, L300.3900, L3200.0500, L3100.5850, L100.0500, L3400.1500, L500.4050, L803.2200, L3410.9998, L3400.1490, L300.4310 ####[facility] [address] [place], [address] Hematocrit (Bld) [Volume fraction] 31.3 % Low 37-47 [facility] Comment on above: Performed By: #### L 3100.7950, L300.3900, L3200.0500, L3100.5850, L100.0500, L3400.1500, L500.4050, L803.2200, L3410.9998, L3400.1490, L300.4310 ####[facility] [address] [place], [address] Hemoglobin (Bld) [Mass/Vol] 11.4 g/dL Low 12.0-15.0 [facility] Comment on above: Performed By: #### L 3100.7950, L300.3900, L3200.0500, L3100.5850, L100.0500, L3400.1500, L500.4050, L803.2200, L3410.9998, L3400.1490, L300.4310 ####[facility] [address] [place], [address] MCH (RBC) [Entitic mass] 32.6 pg High 27.0-32.0 [facility] Comment on above: Performed By: #### L 3100.7950, L300.3900, L3200.0500, L3100.5850, L100.0500, L3400.1500, L500.4050, L803.2200, L3410.9998, L3400.1490, L300.4310 ####[facility] [address] [place], [place], [phone] MCHC (RBC) [Mass/Vol] 36.4 g/dL High 32-36 [facility] Comment on above: Performed By: #### L 3100.7950, L300.3900, L3200.0500, L3100.5850, L100.0500, L3400.1500, L500.4050, L803.2200, L3410.9998, L3400.1490, L300.4310 ####[facility] [address] [place], [place], [id number] MCV (RBC) [Entitic vol] 89.4 fL Normal 81-99 [facility] Comment on above: Performed By: #### L 3100.7950, L300.3900, L3200.0500, L3100.5850, L100.0500, L3400.1500, L500.4050, L803.2200, L3410.9998, L3400.1490, L300.4310 ####[facility] [address] [place], [address] Platelet mean volume (Bld) [Entitic vol] 9.2 fL Normal 6.2-12.0 [facility] Comment on above: Performed By: #### L 3100.7950, L300.3900, L3200.0500, L3100.5850, L100.0500, L3400.1500, L500.4050, L803.2200, L3410.9998, L3400.1490, L300.4310 ####[facility] [address] [place], [address] Platelets (Bld) [#/Vol] 271 10*3/uL Normal 150-450 [facility] Comment on above: Performed By: #### L 3100.7950, L300.3900, L3200.0500, L3100.5850, L100.0500, L3400.1500, L500.4050, L803.2200, L3410.9998, L3400.1490, L300.4310 ####[facility] [address] [place], [address] RBC (Bld) [#/Vol] 3.50 10*6/uL Low 4.2-5.4 [facility] Comment on above: Performed By: #### L 3100.7950, L300.3900, L3200.0500, L3100.5850, L100.0500, L3400.1500, L500.4050, L803.2200, L3410.9998, L3400.1490, L300.4310 ####[facility] [address] [place], [address] RDW SD 41.0 fl Normal 35.1-43.9 [facility] Comment on above: Performed By: #### L 3100.7950, L300.3900, L3200.0500, L3100.5850, L100.0500, L3400.1500, L500.4050, L803.2200, L3410.9998, L3400.1490, L300.4310 ####[facility] [address] [place], [address] WBC (Bld) [#/Vol] 9.4 10*3/uL Normal 4.4-11.0 [facility] Comment on above: Performed By: #### L 3100.7950, L300.3900, L3200.0500, L3100.5850, L100.0500, L3400.1500, L500.4050, L803.2200, L3410.9998, L3400.1490, L300.4310 ####[facility] [address] [facility] [place], [place], [phone] CMV IgG QnOrdered By: Abby Carreon on 12-13-2024 Cytomegalovirus IgG Antibody < 0.60 U/mL 0.00-0.59 [facility] Comment on above: Negative <0.60 Equiv ocal 0.60 - 0.69 Positive >0.69 CMV IgM QnOrdered By: Abby Carreon on 12-13-2024 Cytomegalovirus IgM Antibody < 30.0 AU/mL 0.0-29.9 [facility] Comment on above: Negative <30.0 Equiv ocal 30.0 - 34.9 Positive >34.9A positive result is generally indicative of acuteinfection, reactivation or persistent IgM production.Performed at: [address] [id number] Director: Nathan Thakur PhD, Phone: [phone] Carbon dioxide measurementOr dered By: Abby Carreon on 12-13-2024 CO2 [Moles/Vol] 24.0 mmol/L Normal 21.0-32.0 [facility] Comment on above: Performed By: #### L 3100.7950, L300.3900, L3200.0500, L3100.5850, L100.0500, L3400.1500, L500.4050, L803.2200, L3410.9998, L3400.1490, L300.4310 ####[facility] [address] [place], [address] Chloride measurementOrdered By: Abby Carreon on 12-13-2024 Chloride [Moles/Vol] 106 mmol/L Normal 98-107 [facility] Comment on above: Performed By: #### L 3100.7950, L300.3900, L3200.0500, L3100.5850, L100.0500, L3400.1500, L500.4050, L803.2200, L3410.9998, L3400.1490, L300.4310 ####[facility] [address] [place], [address] Comprehensive Metabolic Prof yvon 12-13-2024 ALK P 86 U/L Normal 45-117 [facility] Comment on above: Performed By: #### L 3100.7950, L300.3900, L3200.0500, L3100.5850, L100.0500, L3400.1500, L500.4050, L803.2200, L3410.9998, L3400.1490, L300.4310 ####[facility] [address] [place], [address] BUN/CRE 13.3 RATIO Normal 10-20 [facility] Comment on above: Performed By: #### L 3100.7950, L300.3900, L3200.0500, L3100.5850, L100.0500, L3400.1500, L500.4050, L803.2200, L3410.9998, L3400.1490, L300.4310 ####[facility] [address] [place], [address] CA,Total 9.4 mg/dL Normal 8.5-10.1 [facility] Comment on above: Performed By: #### L 3100.7950, L300.3900, L3200.0500, L3100.5850, L100.0500, L3400.1500, L500.4050, L803.2200, L3410.9998, L3400.1490, L300.4310 ####[facility] [address] [place], [address] EST GFR - AA 149 mL/min Normal >60 [facility] Comment on above: Result Comment: Afri can Turkmen GFR Calc Performed By: #### L 3100.7950, L300.3900, L3200.0500, L3100.5850, L100.0500, L3400.1500, L500.4050, L803.2200, L3410.9998, L3400.1490, L300.4310 ####[facility] [address] [place], [address] GAP 7 Normal 5-15 [facility] Comment on above: Performed By: #### L 3100.7950, L300.3900, L3200.0500, L3100.5850, L100.0500, L3400.1500, L500.4050, L803.2200, L3410.9998, L3400.1490, L300.4310 ####[facility] [address] [place], [address] T PROT 7.3 g/dL Normal 6.4-8.2 [facility] Comment on above: Performed By: #### L 3100.7950, L300.3900, L3200.0500, L3100.5850, L100.0500, L3400.1500, L500.4050, L803.2200, L3410.9998, L3400.1490, L300.4310 ####[facility] [address] [place], [address] Comprehensive Metabolic Prof ilOrdered By: Abby Carreon on 12-13-2024 AST [Catalytic activity/Vol] 173 U/L High 15-37 [facility] Comment on above: Performed By: #### L 3100.7950, L300.3900, L3200.0500, L3100.5850, L100.0500, L3400.1500, L500.4050, L803.2200, L3410.9998, L3400.1490, L300.4310 ####[facility] [address] [place], [address] EBV capsid IgM Qn (S)Ordered By: Abby Carreon on 12-13-2024 Geoff-Noonan Virus Capsid Ag IgM Ab < 36.0 U/mL 0.0-35.9 [facility] Comment on above: Negative <36.0 Equiv ocal 36.0 - 43.9 Positive >43.9 EBV nuclear IgG Qn (S)Ordere d By: Abby Carreon on 12-13-2024 [facility] [employer] Ass[employer] Ag IgG 21.4 U/mL High 0.0-17.9 [facility] Comment on above: A second sample shou ld be collected and tested no less than2-4 weeks. Negative <18.0 Equivocal 18.0 - 21.9 Positive >21.9 Geoff-Noonan virus (EBV) vir al capsid antigen (VCA) IgG antibody assayOrdered By: Abby Carreon on 12-13-2024 Geoff-Noonan Virus Capsid Ag IgG Ab 74.5 U/mL High 0.0-17.9 [facility] Comment on above: Negative <18.0 Equiv ocal 18.0 - 21.9 Positive >21.9 Erythrocyte distribution wid th ratioOrdered By: Abby Carreon on 12-13-2024 Erythrocyte distribution width (RBC) [Ratio] 12.8 % 11.6-14.6 [facility] Erythrocyte distribution wid th standard deviationOrdered By: Abby Carreon on 12-13-2024 Erythrocyte distribution width (RBC) [Entitic vol] 41.0 fL 35.1-43.9 [facility] Erythrocyte distribution width (RBC) [Ratio] 41.0 fl 35.1-43.9 [facility] Estimated glomerular filtrat ion rate (GFR) AmericanOrdered By: Abby Carreon on 12-13-2024 Estimated GFR (MDRD) Amer 149 mL/min >60 [facility] Comment on above: GFR Calc Glomerular filtration rate ( GFR) estimationOrdered By: Abby Carreon on 12-13-2024 Estimated GFR (MDRD) Non-Af Amer 123 mL/min >60 [facility] Comment on above: Non- GFR Calc GFR/1.73 sq M.predicted among non-blacks MDRD (S/P/Bld) [Vol rate/Area] 123 mL/min/{1.73_m2} Normal >60 [facility] Comment on above: Non- GFR Calc Result Comment: Non- GFR Calc Performed By: #### L 3100.7950, L300.3900, L3200.0500, L3100.5850, L100.0500, L3400.1500, L500.4050, L803.2200, L3410.9998, L3400.1490, L300.4310 ####[facility] [address] [place], [place], [id number] Glucose measurementOrdered B y: Abby Carreon on 12-13-2024 Glucose [Mass/Vol] 80 mg/dL Normal 74-106 [facility] Comment on above: Performed By: #### L 3100.7950, L300.3900, L3200.0500, L3100.5850, L100.0500, L3400.1500, L500.4050, L803.2200, L3410.9998, L3400.1490, L300.4310 ####[facility] [address] [place], [place], [phone] Hematocrit Auto (Bld) [Volum e fraction]Ordered By: Abby Carreon on 12-13-2024 Hematocrit (Bld) [Volume fraction] 31.3 % Low 37-47 [facility] Hemoglobin measurementOrdere d By: Abby Carreon on 12-13-2024 Hemoglobin (Bld) [Mass/Vol] 11.4 g/dL Low 12.0-15.0 [facility] IgG [Mass/Vol]Ordered By: Ismael Carreon on 12-13-2024 Immunoglobulin G Total 897 mg/dL 586-1602 [facility] IgG subclass 1 (S) [Mass/Vol ]Ordered By: Abby Carreon on 12-13-2024 Immunoglobulin G1 521 mg/dL 248-810 [facility] IgG subclass 2 (S) [Mass/Vol ]Ordered By: Abby Carreon on 12-13-2024 Immunoglobulin G2 339 mg/dL 130-555 [facility] IgG subclass 3 (S) [Mass/Vol ]Ordered By: Abby Carreon on 12-13-2024 Immunoglobulin G3 43 mg/dL 15-102 [facility] Immunoglobulin G4 measuremen tOrdered By: Abby Carreon on 12-13-2024 Immunoglobulin G4 12 mg/dL 2-96 [facility] International normalized rat io (INR) calculationOrdered By: Abby Carreon on 12-13-2024 INR Coag (Bld) [Relative time] 1.0 {INR} [facility] Interpretation of Geoff-Ba rr virus antibody panelOrdered By: Abby Carreon on 12-13-2024 Geoff-Noonan Virus Ab Interpret Comment . [facility] Comment on above: EBV Interpretation C kelliKey: Antibody Present + Antibody Absent -Interpretation VCA-IgM VCA-IgG EBNA-IgGNo previous infection/ - - -SusceptiblePrimary infection (new + + -or recent)Past Infection +or- + +See comment below* + - -*Results indicate infection with EBV at some time however cannot predict the timing of the infection since antibodies to EBNA usually develop after primary infection or, alternatively, approximately 5-10% of patients with EBV never develop antibodies to EBNA. MCV (mean corpuscular volume ) determinationOrdered By: Abby Carreon on 12-13-2024 MCV (RBC) [Entitic vol] 89.4 fL 81-99 [facility] Mean corpuscular hemoglobin (MCH) determinationOrdered By: Abby Carreon on 12-13-2024 MCH (RBC) [Entitic mass] 32.6 pg High 27.0-32.0 [facility] Mean corpuscular hemoglobin concentration (MCHC) determinationOrdered By: Abby Carreon on 12-13-2024 MCHC (RBC) [Mass/Vol] 36.4 g/dL High 32-36 [facility] Mean platelet volume determi nationOrdered By: Abby Carreon on 12-13-2024 Platelet mean volume (Bld) [Entitic vol] 9.2 fL 6.2-12.0 [facility] Partial Thromboplast Timeon 12-13-2024 aPTT Coag (Bld) [Time] 32.9 s Normal 24.1-36.2 [facility] Comment on above: Performed By: #### L 3100.7950, L300.3900, L3200.0500, L3100.5850, L100.0500, L3400.1500, L500.4050, L803.2200, L3410.9998, L3400.1490, L300.4310 ####[facility] [address] [place], [place], [phone] Platelet countOrdered By: Ismael Carreon on 12-13-2024 Platelets (Bld) [#/Vol] 271 10*3/uL 150-450 [facility] Potassium measurementOrdered By: Abby Carreon on 12-13-2024 Potassium [Moles/Vol] 3.6 mmol/L Normal 3.5-5.1 [facility] Comment on above: Performed By: #### L 3100.7950, L300.3900, L3200.0500, L3100.5850, L100.0500, L3400.1500, L500.4050, L803.2200, L3410.9998, L3400.1490, L300.4310 ####[facility] [address] [place], [address] Prothrombin Time w/INRon INR Coag (PPP) [Relative time] 1.0 {INR} Normal [facility] Comment on above: Performed By: #### L 3100.7950, L300.3900, L3200.0500, L3100.5850, L100.0500, L3400.1500, L500.4050, L803.2200, L3410.9998, L3400.1490, L300.4310 ####[facility] [address] [place], [address] PT Coag (PPP) [Time] 13.7 s Normal 11.7-14.9 [facility] Comment on above: Performed By: #### L 3100.7950, L300.3900, L3200.0500, L3100.5850, L100.0500, L3400.1500, L500.4050, L803.2200, L3410.9998, L3400.1490, L300.4310 ####[facility] [address] [place], [address] Prothrombin timeOrdered By: Abby Carreon on 12-13-2024 PT Coag (PPP) [Time] 13.7 s 11.7-14.9 [facility] RBC Auto (Bld) [#/Vol]Ordere d By: Abby Carreon on 12-13-2024 RBC (Bld) [#/Vol] 3.50 10*6/uL Low 4.2-5.4 [facility] Serum Geoff Noonan virus cap faisal IgM antibody assay (units/volume)Ordered By: Abby Carreon on 12-13-2024 EBV capsid IgM Qn (S) [arb'U]/mL 0.0-35.9 [facility] Comment on above: Negative <36.0 Equiv ocal 36.0 - 43.9 Positive >43.9 Serum Geoff Noonan virus nuc lear IgG antibody assay (units/volume)Ordered By: Abby Carreon on 12-13-2024 EBV nuclear IgG Qn (S) 21.4 U/mL High 0.0-17.9 [facility] Comment on above: A second sample shou ld be collected and tested no less than2-4 weeks. Negative <18.0 Equivocal 18.0 - 21.9 Positive >21.9 Serum IgG subclass 1 measure ment (mass/volume)Ordered By: Abby Carreon on 12-13-2024 IgG subclass 1 (S) [Mass/Vol] 521 mg/dL 248-810 [facility] Serum IgG subclass 2 measure ment (mass/volume)Ordered By: Abby Carreon on 12-13-2024 IgG subclass 2 (S) [Mass/Vol] 339 mg/dL 130-555 [facility] Serum IgG subclass 3 measure ment (mass/volume)Ordered By: Abby Carreon on 12-13-2024 IgG subclass 3 (S) [Mass/Vol] 43 mg/dL 15-102 [facility] Serum anion gap measurementO rdered By: Abby Carreon on 12-13-2024 Anion gap [Moles/Vol] 7 mmol/L 5-15 [facility] Serum globulin measurementOr dered By: Abby Carreon on 12-13-2024 Globulin (S) [Mass/Vol] 4.1 g/dL Normal 2.2-4.2 [facility] Comment on above: Performed By: #### L 3100.7950, L300.3900, L3200.0500, L3100.5850, L100.0500, L3400.1500, L500.4050, L803.2200, L3410.9998, L3400.1490, L300.4310 ####[facility] [address] [place], [address] Serum or plasma IgG measurem ent (mass/volume)Ordered By: Abby Carreon on 12-13-2024 IgG [Mass/Vol] 897 mg/dL [phone] [facility] Serum or plasma actin IgG an tibody assay (units/volume)Ordered By: Abby Carreon on 12-13-2024 Actin IgG Qn 3 Units 0-19 [facility] Comment on above: Negative 0 - 19 Weak positive 20 - 30 Moderate to strong positive >30 Actin Antibodies are found in 52-85% of patients with autoimmune hepatitis or chronic active hepatitis and in 22% of patients with primary biliary cirrhosis. Serum or plasma alanine cerda otransferase (ALT) measurementOrdered By: Abby Carreon on 12-13-2024 ALT [Catalytic activity/Vol] 324 U/L High 13-56 [facility] Comment on above: Performed By: #### L 3100.7950, L300.3900, L3200.0500, L3100.5850, L100.0500, L3400.1500, L500.4050, L803.2200, L3410.9998, L3400.1490, L300.4310 ####[facility] [address] [place], [address] Serum or plasma albumin liza urement (mass/volume)Ordered By: Abby Carreon on 02-21-2025 Albumin [Mass/Vol] 3.2 g/dL Normal 3.2-5.0 [facility] Comment on above: Performed By: #### L 3100.7950, L300.3900, L3200.0500, L3100.5850, L100.0500, L3400.1500, L500.4050, L803.2200, L3410.9998, L3400.1490, L300.4310 ####[facility] [address] [place], [address] Serum or plasma alkaline johnie sphatase measurementOrdered By: Abby Carreon on 12-13-2024 ALP [Catalytic activity/Vol] 86 U/L 45-117 [facility] Serum or plasma calcium liza urement (mass/volume)Ordered By: Abby Carreon on 12-13-2024 Calcium [Mass/Vol] 9.4 mg/dL 8.5-10.1 [facility] Serum or plasma creatinine m easurement (mass/volume)Ordered By: Abby Carreon on 12-13-2024 Creatinine [Mass/Vol] 0.60 mg/dL Normal 0.55-1.02 [facility] Comment on above: The validity of the calculated GFR & GFRAA in patients over 70 years has not been determined. Clinical correlation is essential. Result Comment: The validity of the calculated GFR GFRAA in patients over70 years has not been determined. Clinical correlation isessential. Performed By: #### L 3100.7950, L300.3900, L3200.0500, L3100.5850, L100.0500, L3400.1500, L500.4050, L803.2200, L3410.9998, L3400.1490, L300.4310 ####[facility] [address] [place], [place], [id number] Serum or plasma cytomegalovi randee (CMV) IgG antibody assay (units/volume)Ordered By: Abby Carreon on 12-13-2024 CMV IgG Qn < 0.60 U/mL 0.00-0.59 [facility] Comment on above: Negative <0.60 Equiv ocal 0.60 - 0.69 Positive >0.69 Serum or plasma cytomegalovi randee (CMV) IgM antibody assay (units/volume)Ordered By: Abby Carreon on 12-13-2024 CMV IgM Qn < 30.0 AU/mL 0.0-29.9 [facility] Comment on above: Negative <30.0 Equiv ocal 30.0 - 34.9 Positive >34.9A positive result is generally indicative of acuteinfection, reactivation or persistent IgM production.Performed at: [employer] [id number] Director: Nathan Thakur PhD, Phone: [phone] Serum or plasma urea nitroge n measurement (mass/volume)Ordered By: Abby Carreon on 12-13-2024 Urea nitrogen [Mass/Vol] 8 mg/dL Normal 7-18 [facility] Comment on above: Performed By: #### L 3100.7950, L300.3900, L3200.0500, L3100.5850, L100.0500, L3400.1500, L500.4050, L803.2200, L3410.9998, L3400.1490, L300.4310 ####[facility] [address] [place], [place], [phone] Sodium levelOrdered By: Keon Carreon on 12-13-2024 Sodium [Moles/Vol] 137 mmol/L Normal 136-145 [facility] Comment on above: Performed By: #### L 3100.7950, L300.3900, L3200.0500, L3100.5850, L100.0500, L3400.1500, L500.4050, L803.2200, L3410.9998, L3400.1490, L300.4310 ####[facility] [id number] [place], [place], [phone](244) Total proteinOrdered By: Rudy Carreon on 12-13-2024 Protein [Mass/Vol] 7.3 g/dL 6.4-8.2 [facility] White blood cell (WBC) count Ordered By: Abby Carreon on 12-13-2024 WBC (Bld) [#/Vol] 9.4 10*3/uL 4.4-11.0 [facility] aPTT Coag (PPP) [Time]Ordere d By: Abby Carreon on 12-13-2024 aPTT Coag (Bld) [Time] 32.9 s 24.1-36.2 [facility] Albumin to globulin ratioOrd ered By: Abby Carreon on 12-12-2024 Albumin/Globulin [Mass ratio] 0.8 {ratio} Low 0.9-2.4 [facility] Bilirubin, totalOrdered By: Abby Carreon on 12-12-2024 Bilirubin [Mass/Vol] 0.50 mg/dL 0.20-1.00 [facility] Comment on above: For patients on eltr ombopag therapy, use of Dimension [place] TBIL is not recommended. Blood urea nitrogen (BUN)/cr eatinine ratioOrdered By: Abby Carreon on 12-12-2024 Urea nitrogen/Creatinine [Mass ratio] 12.4 mg/mg 10-20 [facility] Carbon dioxide measurementOr dered By: Abby Carreon on 12-12-2024 CO2 [Moles/Vol] 25.0 mmol/L 21.0-32.0 [facility] Chloride measurementOrdered By: Abby Carreon on 12-12-2024 Chloride [Moles/Vol] 106 mmol/L 98-107 [facility] Comprehensive Metabolic Prof ilon 12-12-2024 Albumin [Mass/Vol] 3.1 g/dL Low 3.2-5.0 [facility] Comment on above: Performed By: #### L 500.4050, L3410.9998 ####[facility] [address] [place], [place], [id number] Albumin/Globulin [Mass ratio] 0.8 {ratio} Low 0.9-2.4 [facility] Comment on above: Performed By: #### L 500.4050, L3410.9998 ####[facility] [address] [place], [address] ALK P 89 U/L Normal 45-117 [facility] Comment on above: Performed By: #### L 500.4050, L3410.9998 ####[facility] [address] [place], [address] ALT [Catalytic activity/Vol] 300 U/L High 13-56 [facility] Comment on above: Performed By: #### L 500.4050, L3410.9998 ####[facility] [address] [place], [address] AST [Catalytic activity/Vol] 173 U/L High 15-37 [facility] Comment on above: Performed By: #### L 500.4050, L3410.9998 ####[facility] [address] [place], [address] Bilirubin [Mass/Vol] 0.50 mg/dL Normal 0.20-1.00 [facility] Comment on above: Result Comment: For patients on eltrombopag therapy, use of Dimension Natoma TBIL is not recommended. Performed By: #### L 500.4050, L3410.9998 ####[facility] [address] [place], [address] BUN/CRE 12.4 RATIO Normal 10-20 [facility] Comment on above: Performed By: #### L 500.4050, L3410.9998 ####[facility] [address] [place], [address] CA,Total 8.9 mg/dL Normal 8.5-10.1 [facility] Comment on above: Performed By: #### L 500.4050, L3410.9998 ####[facility] [address] [place], [address] Chloride [Moles/Vol] 106 mmol/L Normal 98-107 [facility] Comment on above: Performed By: #### L 500.4050, L3410.9998 ####[facility] [address] [place], [address] CO2 [Moles/Vol] 25.0 mmol/L Normal 21.0-32.0 [facility] Comment on above: Performed By: #### L 500.4050, L3410.9998 ####[facility] [address] [place], [address] Creatinine [Mass/Vol] 0.57 mg/dL Normal 0.55-1.02 [facility] Comment on above: Result Comment: The validity of the calculated GFR GFRAA in patients over70 years has not been determined. Clinical correlation isessential. Performed By: #### L 500.4050, L3410.9998 ####[facility] [address] [place], [address] EST GFR - AA 160 mL/min Normal >60 [facility] Comment on above: Result Comment: Afri can Turkmen GFR Calc Performed By: #### L 500.4050, L3410.9998 ####[facility] [address] [place], [address] GAP 6 Normal 5-15 [facility] Comment on above: Performed By: #### L 500.4050, L3410.9998 ####[facility] [address] [place], [address] GFR/1.73 sq M.predicted among non-blacks MDRD (S/P/Bld) [Vol rate/Area] 132 mL/min/{1.73_m2} Normal >60 [facility] Comment on above: Result Comment: Non- GFR Calc Performed By: #### L 500.4050, L3410.9998 ####[facility] [address] [place], [address] Globulin (S) [Mass/Vol] 3.9 g/dL Normal 2.2-4.2 [facility] Comment on above: Performed By: #### L 500.4050, L3410.9998 ####[facility] [address] [place], [address] Glucose [Mass/Vol] 89 mg/dL Normal 74-106 [facility] Comment on above: Performed By: #### L 500.4050, L3410.9998 ####[facility] [address] [place], [address] Potassium [Moles/Vol] 3.7 mmol/L Normal 3.5-5.1 [facility] Comment on above: Performed By: #### L 500.4050, L3410.9998 ####[facility] [address] [place], [address] Sodium [Moles/Vol] 137 mmol/L Normal 136-145 [facility] Comment on above: Performed By: #### L 500.4050, L3410.9998 ####[facility] [address] [place], [address] T PROT 7.0 g/dL Normal 6.4-8.2 [facility] Comment on above: Performed By: #### L 500.4050, L3410.9998 ####[facility] [address] [place], [address] Urea nitrogen [Mass/Vol] 7 mg/dL Normal 7-18 [facility] Comment on above: Performed By: #### L 500.4050, L3410.9998 ####[facility] [address] [place], [address] Estimated glomerular filtrat ion rate (GFR) AmericanOrdered By: Abby Carreon on 12-12-2024 Estimated GFR (MDRD) Amer 160 mL/min >60 [facility] Comment on above: GFR Calc Glomerular filtration rate ( GFR) estimationOrdered By: Abby Carreon on 12-12-2024 Estimated GFR (MDRD) Non-Af Amer 132 mL/min >60 [facility] Comment on above: Non- GFR Calc GFR/1.73 sq M.predicted among non-blacks MDRD (S/P/Bld) [Vol rate/Area] 132 mL/min/{1.73_m2} >60 [facility] Comment on above: Non- GFR Calc Glucose measurementOrdered B y: Abby Carreon on 12-12-2024 Glucose [Mass/Vol] 89 mg/dL 74-106 [facility] Laboratory - Chemistry and C hemistry - challengeOrdered By: Abby Carreon on 12-12-2024 AST [Catalytic activity/Vol] 173 U/L High 15-37 [facility] Glucose Ql (U) Negative [facility] Laboratory - UrinalysisOrder ed By: Abby Carreon on 12-12-2024 Protein Ql (U) Negative [facility] Geological Technician Office Visit Reporton 12-12-2024 Geological Technician Office Visit Report Normal [facility] Potassium measurementOrdered By: Abby Carreon on 12-12-2024 Potassium [Moles/Vol] 3.7 mmol/L 3.5-5.1 [facility] Serum anion gap measurementO rdered By: Abby Carreon on 12-12-2024 Anion gap [Moles/Vol] 6 mmol/L 5-15 [facility] Serum globulin measurementOr dered By: Abby Carreon on 12-12-2024 Globulin (S) [Mass/Vol] 3.9 g/dL 2.2-4.2 [facility] Serum or plasma alanine cerda otransferase (ALT) measurementOrdered By: Abby Carreon on 12-12-2024 ALT [Catalytic activity/Vol] 300 U/L High 13-56 [facility] Serum or plasma albumin liza urement (mass/volume)Ordered By: Abby Carreon on 12-12-2024 Albumin [Mass/Vol] 3.1 g/dL Low 3.2-5.0 [facility] Serum or plasma alkaline johnie sphatase measurementOrdered By: Abby Carreon on 12-12-2024 ALP [Catalytic activity/Vol] 89 U/L 45-117 [facility] Serum or plasma calcium liza urement (mass/volume)Ordered By: Abby Carreon on 12-12-2024 Calcium [Mass/Vol] 8.9 mg/dL 8.5-10.1 [facility] Serum or plasma creatinine m easurement (mass/volume)Ordered By: Abby Carreon on 12-12-2024 Creatinine [Mass/Vol] 0.57 mg/dL 0.55-1.02 [facility] Comment on above: The validity of the calculated GFR & GFRAA in patients over 70 years has not been determined. Clinical correlation is essential. Serum or plasma urea nitroge n measurement (mass/volume)Ordered By: Abby Carreon on 12-12-2024 Urea nitrogen [Mass/Vol] 7 mg/dL 7-18 [facility] Sodium levelOrdered By: Keon Carreon on 12-12-2024 Sodium [Moles/Vol] 137 mmol/L 136-145 [facility] Total proteinOrdered By: Rudy Carreon on 12-12-2024 Protein [Mass/Vol] 7.0 g/dL 6.4-8.2 [facility] Laboratory - Chemistry and C hemistry - challengeon 11-19-2024 Glucose Ql (U) Negative [facility] Laboratory - Urinalysison Protein Ql (U) Negative [facility] Office Visit Reporton 2024 Office Visit Report Normal [facility] Albumin to globulin ratioOrd ered By: HEALTH ASSESSMENT on 11-13-2024 Albumin/Globulin [Mass ratio] 0.9 {ratio} 0.9-2.4 [facility] Bilirubin, totalOrdered By: HEALTH ASSESSMENT on 11-13-2024 Bilirubin [Mass/Vol] 0.50 mg/dL 0.20-1.00 [facility] Comment on above: For patients on eltr ombopag therapy, use of Dimension Natoma TBIL is not recommended. Blood urea nitrogen (BUN)/cr eatinine ratioOrdered By: HEALTH ASSESSMENT on 11-13-2024 Urea nitrogen/Creatinine [Mass ratio] 6.1 mg/mg Low 10-20 [facility] Carbon dioxide measurementOr dered By: HEALTH ASSESSMENT on 11-13-2024 CO2 [Moles/Vol] 24.0 mmol/L 21.0-32.0 [facility] Chloride measurementOrdered By: HEALTH ASSESSMENT on 11-13-2024 Chloride [Moles/Vol] 105 mmol/L 98-107 [facility] Comprehensive Metabolic Prof ilon 11-13-2024 Albumin [Mass/Vol] 3.3 g/dL Normal 3.2-5.0 [facility] Comment on above: Performed By: #### L 500.4050, L500.4100 ####[facility] [address] [place], [address] Albumin/Globulin [Mass ratio] 0.9 {ratio} Normal 0.9-2.4 [facility] Comment on above: Performed By: #### L 500.4050, L500.4100 ####[facility] [address] [place], [address] ALK P 59 U/L Normal 45-117 [facility] Comment on above: Performed By: #### L 500.4050, L500.4100 ####[facility] [address] [place], [address] ALT [Catalytic activity/Vol] 63 U/L High 13-56 [facility] Comment on above: Performed By: #### L 500.4050, L500.4100 ####[facility] [address] [place], [address] AST [Catalytic activity/Vol] 43 U/L High 15-37 [facility] Comment on above: Performed By: #### L 500.4050, L500.4100 ####[facility] [address] [place], [address] Bilirubin [Mass/Vol] 0.50 mg/dL Normal 0.20-1.00 [facility] Comment on above: Result Comment: For patients on eltrombopag therapy, use of Dimension Nat[place] TBIL is not recommended. Performed By: #### L 500.4050, L500.4100 ####[facility] [address] [place], [address] BUN/CRE 6.1 RATIO Low 10-20 [facility] Comment on above: Performed By: #### L 500.4050, L500.4100 ####[facility] [address] [place], [address] CA,Total 9.2 mg/dL Normal 8.5-10.1 [facility] Comment on above: Performed By: #### L 500.4050, L500.4100 ####[facility] [address] [place], [address] Chloride [Moles/Vol] 105 mmol/L Normal 98-107 [facility] Comment on above: Performed By: #### L 500.4050, L500.4100 ####[facility] [address] [place], [address] CO2 [Moles/Vol] 24.0 mmol/L Normal 21.0-32.0 [facility] Comment on above: Performed By: #### L 500.4050, L500.4100 ####[facility] [address] [place], [address] Creatinine [Mass/Vol] 0.66 mg/dL Normal 0.55-1.02 [facility] Comment on above: Result Comment: The validity of the calculated GFR GFRAA in patients over70 years has not been determined. Clinical correlation isessential. Performed By: #### L 500.4050, L500.4100 ####[facility] [address] [place], [address] EST GFR - AA 134 mL/min Normal >60 [facility] Comment on above: Result Comment: Afri can Turkmen GFR Calc Performed By: #### L 500.4050, L500.4100 ####[facility] [address] [place], [address] GAP 9 Normal 5-15 [facility] Comment on above: Performed By: #### L 500.4050, L500.4100 ####[facility] [address] [place], [address] GFR/1.73 sq M.predicted among non-blacks MDRD (S/P/Bld) [Vol rate/Area] 111 mL/min/{1.73_m2} Normal >60 [facility] Comment on above: Result Comment: Non- GFR Calc Performed By: #### L 500.4050, L500.4100 ####[facility] [address] [place], [address] Globulin (S) [Mass/Vol] 3.5 g/dL Normal 2.2-4.2 [facility] Comment on above: Performed By: #### L 500.4050, L500.4100 ####[facility] [address] [place], [address] Glucose [Mass/Vol] 80 mg/dL Normal 74-106 [facility] Comment on above: Performed By: #### L 500.4050, L500.4100 ####[facility] [address] [place], [address] Potassium [Moles/Vol] 3.4 mmol/L Low 3.5-5.1 [facility] Comment on above: Performed By: #### L 500.4050, L500.4100 ####[facility] [address] [place], [address] Sodium [Moles/Vol] 138 mmol/L Normal 136-145 [facility] Comment on above: Performed By: #### L 500.4050, L500.4100 ####[facility] [address] [place], [address] T PROT 6.8 g/dL Normal 6.4-8.2 [facility] Comment on above: Performed By: #### L 500.4050, L500.4100 ####[facility] [address] [place], [address] Urea nitrogen [Mass/Vol] 4 mg/dL Low 7-18 [facility] Comment on above: Performed By: #### L 500.4050, L500.4100 ####[facility] [address] [place], [address] Estimated glomerular filtrat ion rate (GFR) AmericanOrdered By: HEALTH ASSESSMENT on 11-13-2024 Estimated GFR (MDRD) Amer 134 mL/min >60 [facility] Comment on above: GFR Calc Glomerular filtration rate ( GFR) estimationOrdered By: HEALTH ASSESSMENT on 11-13-2024 Estimated GFR (MDRD) Non-Af Amer 111 mL/min >60 [facility] Comment on above: Non- GFR Calc GFR/1.73 sq M.predicted among non-blacks MDRD (S/P/Bld) [Vol rate/Area] 111 mL/min/{1.73_m2} >60 [facility] Comment on above: Non- GFR Calc Glucose measurementOrdered B y: HEALTH ASSESSMENT on 11-13-2024 Glucose [Mass/Vol] 80 mg/dL 74-106 [facility] High density lipoprotein (HD L) measurementOrdered By: HEALTH ASSESSMENT on 11-13-2024 Cholesterol in HDL [Mass/Vol] 55 mg/dL >40 [facility] Comment on above: The drugs N-Acetylcy steine and Metamizole may falsely depress this assay. Reference Range HDL <40 mg/dL Low HDL Cholesterol HDL >or= 60 mg/dL High HDL Cholesterol Laboratory - Chemistry and C hemistry - challengeon 11-13-2024 Glucose Ql (U) Negative [facility] Laboratory - Chemistry and C hemistry - challengeOrdered By: HEALTH ASSESSMENT on 11-13-2024 AST [Catalytic activity/Vol] 43 U/L High 15-37 [facility] Laboratory - Urinalysison Protein Ql (U) Negative [facility] Lipid Profileon 11-13-2024 Cholesterol [Mass/Vol] 179 mg/dL Normal 200 [facility] Comment on above: Result Comment: <200 mg/dL Desirable 200-240 mg/dL Borderline >240 mg/dL High Risk Performed By: #### L 500.4050, L500.4100 ####[facility] [address] [place], [address] Cholesterol in HDL [Mass/Vol] 55 mg/dL Normal [facility] Comment on above: Result Comment: The drugs N-Acetylcysteine and Metamizole may falselydepress this assay. Reference Range HDL <40 mg/dL Low HDL Cholesterol HDL >or= 60 mg/dL High HDL Cholesterol Performed By: #### L 500.4050, L500.4100 ####[facility] [address] [place], [address] Cholesterol in LDL [Mass/Vol] 102 mg/dL Normal 0-130 [facility] Comment on above: Performed By: #### L 500.4050, L500.4100 ####[facility] [address] [place], [address] Cholesterol in VLDL [Mass/Vol] 22 mg/dL Normal 5-40 [facility] Comment on above: Performed By: #### L 500.4050, L500.4100 ####[facility] [address] [place], [address] Triglyceride [Mass/Vol] 111 mg/dL Normal [facility] Comment on above: Result Comment: The drugs N-Acetylcysteine and Metamizole may falselydepress this assay.Serum Triglycerides Reference Interval Normal <150 mg/dL Borderline high 150 - 199 mg/dL High 200 - 499 mg/dL Very High > or = 500 mg/dL Performed By: #### L 500.4050, L500.4100 ####[facility] [address] [place], [address] Low density lipoprotein (LDL ) cholesterol measurementOrdered By: HEALTH ASSESSMENT on 11-13-2024 Cholesterol in LDL [Mass/Vol] 102 mg/dL 0-130 [facility] Miscellaneous procedureOrder ed By: Sahara Frances on 11-13-2024 Miscellaneous Test Comment SEE SCANNED REPORT [facility] NATERAon 11-13-2024 NATURA SEE SCANNED REPORT Normal [facility] Comment on above: Order Comment: Comme nts: NIPT no gender Carrier testing Performed By: #### L 900.0098 ####[facility] [address] [place], [place], [address] Geological Technician Office Visit Reporton 11-13-2024 Geological Technician Office Visit Report Normal [facility] Potassium measurementOrdered By: HEALTH ASSESSMENT on 11-13-2024 Potassium [Moles/Vol] 3.4 mmol/L Low 3.5-5.1 [facility] Serum anion gap measurementO rdered By: HEALTH ASSESSMENT on 11-13-2024 Anion gap [Moles/Vol] 9 mmol/L 5-15 [facility] Serum globulin measurementOr dered By: HEALTH ASSESSMENT on 11-13-2024 Globulin (S) [Mass/Vol] 3.5 g/dL 2.2-4.2 [facility] Serum or plasma alanine cerda otransferase (ALT) measurementOrdered By: HEALTH ASSESSMENT on 11-13-2024 ALT [Catalytic activity/Vol] 63 U/L High 13-56 [facility] Serum or plasma albumin liza urement (mass/volume)Ordered By: HEALTH ASSESSMENT on 11-13-2024 Albumin [Mass/Vol] 3.3 g/dL 3.2-5.0 [facility] Serum or plasma alkaline johnie sphatase measurementOrdered By: HEALTH ASSESSMENT on 11-13-2024 ALP [Catalytic activity/Vol] 59 U/L 45-117 [facility] Serum or plasma calcium liza urement (mass/volume)Ordered By: HEALTH ASSESSMENT on 11-13-2024 Calcium [Mass/Vol] 9.2 mg/dL 8.5-10.1 [facility] Serum or plasma cholesterol measurement (mass/volume)Ordered By: HEALTH ASSESSMENT on 11-13-2024 Cholesterol [Mass/Vol] 179 mg/dL <200 [facility] Comment on above: <200 mg/dL Desirable 200-240 mg/dL Borderline >240 mg/dL High Risk Serum or plasma creatinine m easurement (mass/volume)Ordered By: HEALTH ASSESSMENT on 11-13-2024 Creatinine [Mass/Vol] 0.66 mg/dL 0.55-1.02 [facility] Comment on above: The validity of the calculated GFR & GFRAA in patients over 70 years has not been determined. Clinical correlation is essential. Serum or plasma urea nitroge n measurement (mass/volume)Ordered By: HEALTH ASSESSMENT on 11-13-2024 Urea nitrogen [Mass/Vol] 4 mg/dL Low 7-18 [facility] Sodium levelOrdered By: HEAL ASSESSMENT on 11-13-2024 Sodium [Moles/Vol] 138 mmol/L 136-145 [facility] Total proteinOrdered By: [facility] ASSESSMENT on 11-13-2024 Protein [Mass/Vol] 6.8 g/dL 6.4-8.2 [facility] Triglycerides measurementOrd ered By: HEALTH ASSESSMENT on 11-13-2024 Triglyceride [Mass/Vol] 111 mg/dL <199 [facility] Comment on above: The drugs N-Acetylcy steine and Metamizole may falsely depress this assay.Serum Triglycerides Reference Interval Normal <150 mg/dL Borderline high 150 - 199 mg/dL High 200 - 499 mg/dL Very High > or = 500 mg/dL Very low density lipoprotein (VLDL) cholesterol measurementOrdered By: [facility] ASSESSMENT on 11-13-2024 Very low density lipoprotein (VLDL) cholesterol measurement 22 mg/dL 5-40 [facility] VLDL Cholesterol 22 mg/dL 5-40 [facility] Laboratory - Chemistry and C hemistry - challengeon 11-06-2024 Glucose Ql (U) Negative [facility] Laboratory - Urinalysison Protein Ql (U) Negative [facility] Geological Technician Office Visit Reporton 11-06-2024 Geological Technician Office Visit Report Normal [facility] Albumin to globulin ratioOrd ered By: Sahara Frances on 10-25-2024 Albumin/Globulin [Mass ratio] 1.0 {ratio} 0.9-2.4 [facility] Bilirubin, totalOrdered By: Sahara Frances on 10-25-2024 Bilirubin [Mass/Vol] 0.40 mg/dL 0.20-1.00 [facility] Comment on above: For patients on eltr ombopag therapy, use of Dimension [place] TBIL is not recommended. Blood urea nitrogen (BUN)/cr eatinine ratioOrdered By: Sahara Frances on 10-25-2024 Urea nitrogen/Creatinine [Mass ratio] 10.2 mg/mg 10-20 [facility] Carbon dioxide measurementOr dered By: Sahara Frances on 10-25-2024 CO2 [Moles/Vol] 23.0 mmol/L 21.0-32.0 [facility] Chloride measurementOrdered By: Sahara Frances on 10-25-2024 Chloride [Moles/Vol] 103 mmol/L 98-107 [facility] Comprehensive Metabolic Prof ilon 10-25-2024 Albumin [Mass/Vol] 3.7 g/dL Normal 3.2-5.0 [facility] Comment on above: Performed By: #### L 500.4050 ####[facility] [address] [place], [address] Albumin/Globulin [Mass ratio] 1.0 {ratio} Normal 0.9-2.4 [facility] Comment on above: Performed By: #### L 500.4050 ####[facility] [address] [place], [address] ALK P 63 U/L Normal 45-117 [facility] Comment on above: Performed By: #### L 500.4050 ####[facility] [address] [place], [address] ALT [Catalytic activity/Vol] 30 U/L Normal 13-56 [facility] Comment on above: Performed By: #### L 500.4050 ####[facility] [address] [place], [address] AST [Catalytic activity/Vol] 17 U/L Normal 15-37 [facility] Comment on above: Performed By: #### L 500.4050 ####[facility] [address] [place], [address] Bilirubin [Mass/Vol] 0.40 mg/dL Normal 0.20-1.00 [facility] Comment on above: Result Comment: For patients on eltrombopag therapy, use of Dimension [place] TBIL is not recommended. Performed By: #### L 500.4050 ####[facility] [address] [place], [address] BUN/CRE 10.2 RATIO Normal 10-20 [facility] Comment on above: Performed By: #### L 500.4050 ####[facility] [facility] [address] [place], [address] CA,Total 9.1 mg/dL Normal 8.5-10.1 [facility] Comment on above: Performed By: #### L 500.4050 ####[facility] [address] [place], [address] Chloride [Moles/Vol] 103 mmol/L Normal 98-107 [facility] Comment on above: Performed By: #### L 500.4050 ####[facility] [address] [place], [address] CO2 [Moles/Vol] 23.0 mmol/L Normal 21.0-32.0 [facility] Comment on above: Performed By: #### L 500.4050 ####[facility] [address] [place], [address] Creatinine [Mass/Vol] 0.69 mg/dL Normal 0.55-1.02 [facility] Comment on above: Result Comment: The validity of the calculated GFR GFRAA in patients over70 years has not been determined. Clinical correlation isessential. Performed By: #### L 500.4050 ####[facility] [address] [place], [address] EST GFR - AA 128 mL/min Normal >60 [facility] Comment on above: Result Comment: Afri can Turkmen GFR Calc Performed By: #### L 500.4050 ####[facility] [address] [place], [address] GAP 9 Normal 5-15 [facility] Comment on above: Performed By: #### L 500.4050 ####[facility] [address] [place], [address] GFR/1.73 sq M.predicted among non-blacks MDRD (S/P/Bld) [Vol rate/Area] 106 mL/min/{1.73_m2} Normal >60 [facility] Comment on above: Result Comment: Non- GFR Calc Performed By: #### L 500.4050 ####[facility] [address] [place], [address] Globulin (S) [Mass/Vol] 3.6 g/dL Normal 2.2-4.2 [facility] Comment on above: Performed By: #### L 500.4050 ####[facility] [address] [place], [address] Glucose [Mass/Vol] 85 mg/dL Normal 74-106 [facility] Comment on above: Performed By: #### L 500.4050 ####[facility] [address] [place], [address] Potassium [Moles/Vol] 3.2 mmol/L Low 3.5-5.1 [facility] Comment on above: Performed By: #### L 500.4050 ####[facility] [address] [place], [address] Sodium [Moles/Vol] 135 mmol/L Low 136-145 [facility] Comment on above: Performed By: #### L 500.4050 ####[facility] [address] [place], [place], [id number] T PROT 7.3 g/dL Normal 6.4-8.2 [facility] Comment on above: Performed By: #### L 500.4050 ####[facility] [address] [place], [place], [id number] Urea nitrogen [Mass/Vol] 7 mg/dL Normal 7-18 [facility] Comment on above: Performed By: #### L 500.4050 ####[facility] [address] [place], [place], [phone] Estimated glomerular filtrat ion rate (GFR) AmericanOrdered By: Sahara Frances on 10-25-2024 Estimated GFR (MDRD) Amer 128 mL/min >60 [facility] Comment on above: GFR Calc Glomerular filtration rate ( GFR) estimationOrdered By: Sahara Frances on 10-25-2024 Estimated GFR (MDRD) Non-Af Amer 106 mL/min >60 [facility] Comment on above: Non- GFR Calc Glucose measurementOrdered B y: Sahara Frances on 10-25-2024 Glucose [Mass/Vol] 85 mg/dL 74-106 [facility] Laboratory - Chemistry and C hemistry - challengeOrdered By: Sahara Frances on 10-25-2024 AST [Catalytic activity/Vol] 17 U/L 15-37 [facility] Laboratory - Chemistry and C hemistry - challengeon 10-25-2024 Glucose Ql (U) Negative [facility] Laboratory - Urinalysison Protein Ql (U) Negative [facility] Geological Technician Office Visit Reporton 10-25-2024 Geological Technician Office Visit Report Normal [facility] Potassium measurementOrdered By: Sahara Frances on 10-25-2024 Potassium [Moles/Vol] 3.2 mmol/L Low 3.5-5.1 [facility] Protein+Creatinine Ratio,Uri neon 10-25-2024 PROT:CRE RATIO 177 mg/g CRE Normal 0-200 [facility] Comment on above: Performed By: #### L 501.0900 ####[facility] [address] [place], [address] Protein (U) [Mass/Vol] 13.6 mg/dL High <11.9 [facility] Comment on above: Performed By: #### L 501.0900 ####[facility] [address] [place], [address] UR CREAT 77.00 mg/dL Normal NO RANGE EST. [facility] Comment on above: Performed By: #### L 501.0900 ####[facility] [address] [place], [address] Protein/Creatinine (U) [Mass ratio]Ordered By: Sahara Frances on 10-25-2024 Urine Protein/Creatinine Ratio 177 mg/g CRE 0-200 [facility] Random urine protein measure mentOrdered By: Sahara Frances on 10-25-2024 Protein (U) [Mass/Vol] 13.6 mg/dL High 0.0-11.8 [facility] Serum anion gap measurementO rdered By: Sahara Frances on 10-25-2024 Anion gap [Moles/Vol] 9 mmol/L 5-15 [facility] Serum globulin measurementOr dered By: Sahara Frances on 10-25-2024 Globulin (S) [Mass/Vol] 3.6 g/dL 2.2-4.2 [facility] Serum or plasma alanine cerda otransferase (ALT) measurementOrdered By: Sahara Frances on 10-25-2024 ALT [Catalytic activity/Vol] 30 U/L 13-56 [facility] Serum or plasma albumin liza urement (mass/volume)Ordered By: Sahara Frances on 10-25-2024 Albumin [Mass/Vol] 3.7 g/dL 3.2-5.0 [facility] Serum or plasma alkaline johnie sphatase measurementOrdered By: Sahara Frances on 10-25-2024 ALP [Catalytic activity/Vol] 63 U/L 45-117 [facility] Serum or plasma calcium liza urement (mass/volume)Ordered By: Sahara Franecs on 10-25-2024 Calcium [Mass/Vol] 9.1 mg/dL 8.5-10.1 [facility] Serum or plasma creatinine m easurement (mass/volume)Ordered By: Sahara Frances on 10-25-2024 Creatinine [Mass/Vol] 0.69 mg/dL 0.55-1.02 [facility] Comment on above: The validity of the calculated GFR & GFRAA in patients over 70 years has not been determined. Clinical correlation is essential. Serum or plasma urea nitroge n measurement (mass/volume)Ordered By: Sahara Frances on 10-25-2024 Urea nitrogen [Mass/Vol] 7 mg/dL 7-18 [facility] Sodium levelOrdered By: Malorie Frances on 10-25-2024 Sodium [Moles/Vol] 135 mmol/L Low 136-145 [facility] Total proteinOrdered By: Amy Frances on 10-25-2024 Protein [Mass/Vol] 7.3 g/dL 6.4-8.2 [facility] Urine creatinine measurement (mass/volume)Ordered By: Sahara Frances on 10-25-2024 Creatinine (U) [Mass/Vol] 77.00 mg/dL NO RANGE EST. [facility] Chlamydia/GC VISHAL aptimaon CHLAMY,NUC ACID Negative Normal Negative [facility] Comment on above: Performed By: #### L 7000.1800 ####[facility] [address] [place], [place], [id number] GC BY NUC ACID Negative Normal Negative [facility] Comment on above: Result Comment: Perf ormed at: =G - [facility] [address] [id number] Director: Kelly Dominguez MD, Phone: [phone] Performed By: #### L 7000.1800 ####[facility] [address] [place], [place], [address] Urine Cultureon 10-12-2024 URC Culture exhibits no growth. Normal [facility] Comment on above: Performed By: #### M 100.2200 ####[facility] [address] [place], [place], [phone] C. trachomatis rRNA VISHAL+prob e Ql (Unsp spec)Ordered By: Sahara Frances on 10-11-2024 Chlamydia DNA (VISHAL) Negative Negative [facility] Neisseria gonorrhoeae nuclei c acid detection by amplified probe techniqueOrdered By: Sahara Frances on 10-11-2024 N. gonorrhoeae DNA VISHAL+probe Ql (Unsp spec) Negative Negative [facility] Comment on above: Performed at: =[address] [id number] Director: Kelly Dominguez MD, Phone: [phone] Geological Technician Office Visit Reporton 10-11-2024 Geological Technician Office Visit Report Normal [facility] Urine cultureOrdered By: Shiva Bolanos on 10-11-2024 Bacteria identified Cx Nom (U) Culture exhibits no growth. [facility] Absolute neutrophil countOrd ered By: Joyce Bolanos on 10-01-2024 Neutrophils (Bld) [#/Vol] 8.6 10*3/uL High 2.0-7.7 [facility] Basophil percentageOrdered B y: Joyce Bolanos on 10-01-2024 Basophils/100 WBC (Bld) 0.4 % 0- [facility] CBC W/Diff, Automatedon 09-22 Absolute Lymph 1.55 X10 3/uL Normal 0.83-4.51 [facility] Comment on above: Performed By: #### L 501.50310, L509.8000, BTS, L100.0100, L3890.6005, L3890.6300, L3890.6100, L506.0400, L501.9520, L509.4005, L501.9985, L7000.1800 ####[facility] [address] [facility] [address] [place], [place], [id number] Absolute Neut 8.6 X10 3/uL High 2.0-7.7 [facility] Comment on above: Performed By: #### L 501.64481, L509.8000, BTS, L100.0100, L3890.6005, L3890.6300, L3890.6100, L506.0400, L501.9520, L509.4005, L501.9985, L7000.1800 ####[facility] [address] [place], [address] Basophils/100 WBC (Bld) 0.4 % Normal 0-1 [facility] Comment on above: Performed By: #### L 501.82473, L509.8000, BTS, L100.0100, L3890.6005, L3890.6300, L3890.6100, L506.0400, L501.9520, L509.4005, L501.9985, L7000.1800 ####[facility] [address] [place], [address] Eosinophils/100 WBC (Bld) 3.0 % Normal 0-5 [facility] Comment on above: Performed By: #### L 501.52256, L509.8000, BTS, L100.0100, L3890.6005, L3890.6300, L3890.6100, L506.0400, L501.9520, L509.4005, L501.9985, L7000.1800 ####[facility] [address] [place], [address] Erythrocyte distribution width (RBC) [Ratio] 11.9 % Normal 11.6-14.6 [facility] Comment on above: Performed By: #### L 501.39511, L509.8000, BTS, L100.0100, L3890.6005, L3890.6300, L3890.6100, L506.0400, L501.9520, L509.4005, L501.9985, L7000.1800 ####[facility] [address] [place], [address] Hematocrit (Bld) [Volume fraction] 38.3 % Normal 37-47 [facility] Comment on above: Performed By: #### L 501.84215, L509.8000, BTS, L100.0100, L3890.6005, L3890.6300, L3890.6100, L506.0400, L501.9520, L509.4005, L501.9985, L7000.1800 ####[facility] [address] [place], [address] Hemoglobin (Bld) [Mass/Vol] 13.5 g/dL Normal 12.0-15.0 [facility] Comment on above: Performed By: #### L 501.82156, L509.8000, BTS, L100.0100, L3890.6005, L3890.6300, L3890.6100, L506.0400, L501.9520, L509.4005, L501.9985, L7000.1800 ####[facility] [address] [facility] [place], [address] IG% 0.400 Normal 0.0-0.9 [facility] Comment on above: Result Comment: IG% - Immature Granulocytes (promyelocytes, myelocytes andmetamyelocytes) > 1% indicates that a LEFT SHIFT is Present. Performed By: #### L 501.07794, L509.8000, BTS, L100.0100, L3890.6005, L3890.6300, L3890.6100, L506.0400, L501.9520, L509.4005, L501.9985, L7000.1800 ####[facility] [address] [place], [address] Lymphocytes/100 WBC (Bld) 13.9 % Low 19-41 [facility] Comment on above: Performed By: #### L 501.61723, L509.8000, BTS, L100.0100, L3890.6005, L3890.6300, L3890.6100, L506.0400, L501.9520, L509.4005, L501.9985, L7000.1800 ####[facility] [address] [place], [address] MCH (RBC) [Entitic mass] 31.3 pg Normal 27.0-32.0 [facility] Comment on above: Performed By: #### L 501.43690, L509.8000, BTS, L100.0100, L3890.6005, L3890.6300, L3890.6100, L506.0400, L501.9520, L509.4005, L501.9985, L7000.1800 ####[facility] [address] [place], [address] MCHC (RBC) [Mass/Vol] 35.2 g/dL Normal 32-36 [facility] Comment on above: Performed By: #### L 501.26750, L509.8000, BTS, L100.0100, L3890.6005, L3890.6300, L3890.6100, L506.0400, L501.9520, L509.4005, L501.9985, L7000.1800 ####[facility] [address] [place], [address] MCV (RBC) [Entitic vol] 88.7 fL Normal 81-99 [facility] Comment on above: Performed By: #### L 501.95613, L509.8000, BTS, L100.0100, L3890.6005, L3890.6300, L3890.6100, L506.0400, L501.9520, L509.4005, L501.9985, L7000.1800 ####[facility] [address] [place], [address] Monocytes/100 WBC (Bld) 5.5 % Normal 0-10 [facility] Comment on above: Performed By: #### L 501.74585, L509.8000, BTS, L100.0100, L3890.6005, L3890.6300, L3890.6100, L506.0400, L501.9520, L509.4005, L501.9985, L7000.1800 ####[facility] [address] [place], [address] Neutrophils/100 WBC (Bld) 76.8 % High 47-70 [facility] Comment on above: Performed By: #### L 501.51886, L509.8000, BTS, L100.0100, L3890.6005, L3890.6300, L3890.6100, L506.0400, L501.9520, L509.4005, L501.9985, L7000.1800 ####[facility] [address] [place], [place], [phone] Nucleated RBC (Bld) [#/Vol] 0 10*3/uL Normal 0-5 [facility] Comment on above: Performed By: #### L 501.56513, L509.8000, BTS, L100.0100, L3890.6005, L3890.6300, L3890.6100, L506.0400, L501.9520, L509.4005, L501.9985, L7000.1800 ####[facility] [address] [place], [address] Platelet mean volume (Bld) [Entitic vol] 9.6 fL Normal 6.2-12.0 [facility] Comment on above: Performed By: #### L 501.71090, L509.8000, BTS, L100.0100, L3890.6005, L3890.6300, L3890.6100, L506.0400, L501.9520, L509.4005, L501.9985, L7000.1800 ####[facility] [address] [place], [address] Platelets (Bld) [#/Vol] 254 10*3/uL Normal 150-450 [facility] Comment on above: Performed By: #### L 501.45974, L509.8000, BTS, L100.0100, L3890.6005, L3890.6300, L3890.6100, L506.0400, L501.9520, L509.4005, L501.9985, L7000.1800 ####[facility] [address] [place], [address] RBC (Bld) [#/Vol] 4.32 10*6/uL Normal 4.2-5.4 [facility] Comment on above: Performed By: #### L 501.18799, L509.8000, BTS, L100.0100, L3890.6005, L3890.6300, L3890.6100, L506.0400, L501.9520, L509.4005, L501.9985, L7000.1800 ####[facility] [address] [place], [address] RDW SD 38.0 fl Normal 35.1-43.9 [facility] Comment on above: Performed By: #### L 501.08245, L509.8000, BTS, L100.0100, L3890.6005, L3890.6300, L3890.6100, L506.0400, L501.9520, L509.4005, L501.9985, L7000.1800 ####[facility] [address] [place], [address] WBC (Bld) [#/Vol] 11.2 10*3/uL High 4.4-11.0 [facility] Comment on above: Performed By: #### L 501.99940, L509.8000, BTS, L100.0100, L3890.6005, L3890.6300, L3890.6100, L506.0400, L501.9520, L509.4005, L501.9985, L7000.1800 ####[facility] [address] [place], [address] Chlamydia/GC VISHAL aptimaon CHLAMY,NUC ACID Normal [facility] Comment on above: Result Comment: DIDN T NEED Performed By: #### L 501.52601, L509.8000, BTS, L100.0100, L3890.6005, L3890.6300, L3890.6100, L506.0400, L501.9520, L509.4005, L501.9985, L7000.1800 ####[facility] [address] [place], [address] GC BY NUC ACID Normal [facility] Comment on above: Result Comment: DIDN T NEED Performed By: #### L 501.92852, L509.8000, BTS, L100.0100, L3890.6005, L3890.6300, L3890.6100, L506.0400, L501.9520, L509.4005, L501.9985, L7000.1800 ####[facility] [address] [place], [address] Direct serum free thyroxine (FT4) measurementOrdered By: Joyce Bolanos on 10-01-2024 Free T4 [Mass/Vol] 0.89 ng/dL 0.76-1.46 [facility] Eosinophil percentageOrdered By: Joyce Bolanos on 10-01-2024 Eosinophils/100 WBC (Bld) 3.0 % 0-5 [facility] Erythrocyte distribution wid th ratioOrdered By: Joyce Bolanos on 10-01-2024 Erythrocyte distribution width (RBC) [Ratio] 11.9 % 11.6-14.6 [facility] Erythrocyte distribution wid th standard deviationOrdered By: Joyce Bolanos on 10-01-2024 Erythrocyte distribution width (RBC) [Entitic vol] 38.0 fL 35.1-43.9 [facility] Free T3on 10-01-2024 Free T3 [Mass/Vol] 2.6 pg/mL Normal 2.18-3.98 [facility] Comment on above: Performed By: #### L 501.86153, L509.8000, BTS, L100.0100, L3890.6005, L3890.6300, L3890.6100, L506.0400, L501.9520, L509.4005, L501.9985, L7000.1800 ####[facility] [address] [place], [place], [id number] Free Z0Vqevdya By: Joyce biswas on 10-01-2024 Free Triiodothyronine (T3) pg/dL 2.6 pg/mL 2.18-3.98 [facility] HIV - WCHon 10-01-2024 HIV Non-Reactive Normal Nonreactive [facility] Comment on above: Order Comment: Reaso n for Exam: Performed By: #### L 501.95625, L509.8000, BTS, L100.0100, L3890.6005, L3890.6300, L3890.6100, L506.0400, L501.9520, L509.4005, L501.9985, L7000.1800 ####[facility] [address] [place], [place], [id number] HIV 1+2 Ab+HIV1 p24 Ag IA Ql Ordered By: Joyce Bolanos on 10-01-2024 HIV (1&2) Antibody Non-Reactive Nonreactive [facility] Hematocrit Auto (Bld) [Volum e fraction]Ordered By: Joyce Bolanos on 10-01-2024 Hematocrit (Bld) [Volume fraction] 38.3 % 37-47 [facility] Hemoglobin A1con 10-01-2024 HbA1c (Bld) [Mass fraction] 4.6 % Normal 3.8-5.6 [facility] Comment on above: Result Comment: Norm al < 5.7 % Prediabetic 5.7 - 6.4 % Diabetic >or= 6.5 % Please note range changes. Performed By: #### L 501.43251, L509.8000, BTS, L100.0100, L3890.6005, L3890.6300, L3890.6100, L506.0400, L501.9520, L509.4005, L501.9985, L7000.1800 ####[facility] [address] [place], [place], [phone] Hemoglobin A1c percentageOrd ered By: Joyce Bolanos on 10-01-2024 HbA1c (Bld) [Mass fraction] 4.6 % 3.8-5.6 [facility] Comment on above: Normal < 5.7 % Predi abetic 5.7 - 6.4 % Diabetic >or= 6.5 % Please note range changes. Hemoglobin measurementOrdere d By: Joyce Bolanos on 10-01-2024 Hemoglobin (Bld) [Mass/Vol] 13.5 g/dL 12.0-15.0 [facility] Hepatitis B Surface Antigeno n 10-01-2024 HEP B Surf Ag Non-Reactive Normal [facility] [place] Comment on above: Order Comment: Reaso n for Exam: Performed By: #### L 501.05644, L509.8000, BTS, L100.0100, L3890.6005, L3890.6300, L3890.6100, L506.0400, L501.9520, L509.4005, L501.9985, L7000.1800 ####[facility] [address] [place], [place], [phone] Hepatitis B surface antigen detectionOrdered By: Joyce Bolanos on 10-01-2024 Hepatitis B Surface Antigen Non-Reactive Nonreactive [facility] Hepatitis C Antibodyon 10-01 Hepatitis C AB Non-Reactive Normal Nonreactive [facility] Comment on above: Order Comment: Reaso n for Exam: Result Comment: Non Reactive: < 0.8 Equivocal: >/= 0.8 to < 1.0 Reactive: >/= 1.0The [facility] requires that a reactive/equivocal HCV antibodyresult be sent out for confirmation. HCV Quant by PCRtesting. Performed By: #### L 501.96384, L509.8000, BTS, L100.0100, L3890.6005, L3890.6300, L3890.6100, L506.0400, L501.9520, L509.4005, L501.9985, L7000.1800 ####[facility] [address] [place], [place], [phone] Hepatitis C virus antibody a ssayOrdered By: Joyce Bolanos on 10-01-2024 Hepatitis C Antibody Non-Reactive Nonreactive [facility] Comment on above: Non Reactive: < 0.8 Equivocal: >/= 0.8 to < 1.0 Reactive: >/= 1.0The CDC requires that a reactive/equivocal HCV antibody result be sent out for confirmation. HCV Quant by PCR testing. Immature granulocytes/100 WB C Auto (Bld)Ordered By: Joyce Bolanos on 10-01-2024 Immature granulocytes/100 WBC (Bld) 0.400 % 0.0-0.9 [facility] Comment on above: IG% - Immature Granu locytes (promyelocytes, myelocytes and metamyelocytes) > 1% indicates that a LEFT SHIFT is Present. L509.8000on 10-01-2024 Syphilis Abs Non-Reactive Normal [facility] Comment on above: Order Comment: Reaso n for Exam: Performed By: #### L 501.48342, L509.8000, BTS, L100.0100, L3890.6005, L3890.6300, L3890.6100, L506.0400, L501.9520, L509.4005, L501.9985, L7000.1800 ####[facility] [address] [place], [place], [phone] Lymphocytes Auto (Unsp spec) [#/Vol]Ordered By: Joyce Bolanos on 10-01-2024 Lymphocytes (Bld) [#/Vol] 1.55 10*3/uL 0.83-4.51 [facility] Lymphocytes/100 WBC Auto (Un sp spec)Ordered By: Joyce Bolanos on 10-01-2024 Lymphocytes/100 WBC (Bld) 13.9 % Low 19-41 [facility] MCV (mean corpuscular volume ) determinationOrdered By: Joyce Bolanos on 10-01-2024 MCV (RBC) [Entitic vol] 88.7 fL 81-99 [facility] Mean corpuscular hemoglobin (MCH) determinationOrdered By: Joyce Bolanos on 10-01-2024 MCH (RBC) [Entitic mass] 31.3 pg 27.0-32.0 [facility] Mean corpuscular hemoglobin concentration (MCHC) determinationOrdered By: Joyce Bolanos on 10-01-2024 MCHC (RBC) [Mass/Vol] 35.2 g/dL 32-36 [facility] Mean platelet volume determi nationOrdered By: Joyce Bolanos on 10-01-2024 Platelet mean volume (Bld) [Entitic vol] 9.6 fL 6.2-12.0 [facility] Monocyte percentageOrdered B y: Joyce Bolanos on 10-01-2024 Monocytes/100 WBC (Bld) 5.5 % 0-10 [facility] Neutrophil percentageOrdered By: Joyce Bolanos on 10-01-2024 Neutrophils/100 WBC (Bld) 76.8 % High 47-70 [facility] Nucleated red blood cell per centageOrdered By: Joyce Bolanos on 10-01-2024 Nucleated RBC/100 WBC (Bld) [Ratio] 0 % 0-5 [facility] Platelet countOrdered By: Shakir Bolanos on 10-01-2024 Platelets (Bld) [#/Vol] 254 10*3/uL 150-450 [facility] RBC Auto (Bld) [#/Vol]Ordere d By: Joyce Bolanos on 10-01-2024 RBC (Bld) [#/Vol] 4.32 10*6/uL 4.2-5.4 [facility] Rubella IgGon 10-01-2024 Rubella IgG Reactive Normal Nonreactive [facility] Comment on above: Order Comment: Reaso n for Exam: Result Comment: Anti body Results Interpretation of Immune Status Non Reactive Presumed Non-Immune Equivocal Equivocal Reactive Presumed Immune Performed By: #### L 501.84737, L509.8000, BTS, L100.0100, L3890.6005, L3890.6300, L3890.6100, L506.0400, L501.9520, L509.4005, L501.9985, L7000.1800 ####[facility] [address] [place], [place], [id number] Rubella immune status IgGOrd ered By: Joyce Bolanos on 10-01-2024 Rubella IgG Antibody Reactive Nonreactive [facility] Comment on above: Antibody Results Int erpretation of Immune Status Non Reactive Presumed Non-Immune Equivocal Equivocal Reactive Presumed Immune T4 Free Directon 10-01-2024 T4 FREE DIRECT 0.89 ng/dL Normal 0.76-1.46 [facility] Comment on above: Performed By: #### L 501.77118, L509.8000, BTS, L100.0100, L3890.6005, L3890.6300, L3890.6100, L506.0400, L501.9520, L509.4005, L501.9985, L7000.1800 ####[facility] [address] [place], [place], [phone](045) TSH QnOrdered By: Joyce valentin on 10-01-2024 Thyroid Stimulating Hormone (TSH) 2.270 uIU/mL 0.358-3.740 [facility] Thyroid Stim Hormone (TSH)on 10-01-2024 TSH 2.270 uIU/mL Normal 0.358-3.740 [facility] Comment on above: Performed By: #### L 501.52984, L509.8000, BTS, L100.0100, L3890.6005, L3890.6300, L3890.6100, L506.0400, L501.9520, L509.4005, L501.9985, L7000.1800 ####[facility] [address] [place], [place], [id number] Treponema sp Ab Ql (S)Ordere d By: Joyce Bolanos on 10-01-2024 Syphilis Total Antibody Non-Reactive [facility] Type AND Screenon 10-01-2024 ABO and Rh group Nom (Bld) Blood group O Rh(D) negative Normal [facility] Comment on above: Order Comment: PN Performed By: #### L 501.78089, L509.8000, BTS, L100.0100, L3890.6005, L3890.6300, L3890.6100, L506.0400, L501.9520, L509.4005, L501.9985, L7000.1800 ####[facility] [address] [place], [address] White blood cell (WBC) count Ordered By: Joyce Bolanos on 10-01-2024 WBC (Bld) [#/Vol] 11.2 10*3/uL High 4.4-11.0 [facility] CBC with auto diff (10494)Or dered By: Senior Svp on 10-13-2022 Basophils (Bld) [#/Vol] 0.0 10*3/uL Normal 0.0-0.2 [facility] Work Phone: Comment on above: PATIENT WAS FASTINGP ERFORMED BY: KALYN Stribe[address] [facility] [id number] Basophils/100 WBC (Bld) 0 % Normal [facility]; [facility] Work Phone: Comment on above: PATIENT WAS FASTINGP ERFORMED BY: [employer] Partnerslin[address] [facility] [id number] Eosinophils (Bld) [#/Vol] 0.3 10*3/uL Normal 0.0-0.4 [facility]; [facility] Work Phone: Comment on above: PATIENT WAS FASTINGP ERFORMED BY: [employer] [facility] [id number] Eosinophils/100 WBC (Bld) 4 % Normal [facility]; [facility] Work Phone: Comment on above: PATIENT WAS FASTINGP ERFORMED BY: [facility] Vkzmkj2638 [facility] [id number] Erythrocyte distribution width (RBC) [Ratio] 12.2 % Normal 11.7-15.4 [facility]; [facility] Work Phone: Comment on above: PATIENT WAS FASTINGP ERFORMED BY: KALYN Gayla Hopson[address] [facility] [place] [id number] Hematocrit (Bld) [Volume fraction] 41.4 % Normal 34.0-46.6 [facility]; [facility] Work Phone: Comment on above: PATIENT WAS FASTINGP ERFORMED BY: KALYN [employer] Ijchem7056 [facility] RoadUNC [facility] Johnston [id number] Hemoglobin (Bld) [Mass/Vol] 14.3 g/dL Normal 11.1-15.9 [facility]; [facility] Work Phone: Comment on above: PATIENT WAS FASTINGP ERFORMED BY: KALYN [facility] Evibsj2114 [facility] RoadUNC Health Johnston [id number] Immature granulocytes (Bld) [#/Vol] 0.0 10*3/uL Normal 0.0-0.1 [facility]; [facility] Work Phone: Comment on above: PATIENT WAS FASTINGP ERFORMED BY: KALYN Lablisbet L[address]lou[address] [facility] [id number] Immature granulocytes/100 WBC (Bld) 0 % Normal [facility]; [facility] Work Phone: Comment on above: PATIENT WAS FASTINGP ERFORMED BY: KALYN Lablisbet Pcoyht[address] [facility] [id number] Lymphocytes (Bld) [#/Vol] 1.7 10*3/uL Normal 0.7-3.1 [facility]; [facility] Work Phone: Comment on above: PATIENT WAS FASTINGP ERFORMED BY: KALYN [employer] Cygpuu[address] Road[address] [place] [id number] Lymphocytes/100 WBC (Bld) 21 % Normal [facility]; [facility] Work Phone: Comment on above: PATIENT WAS FASTINGP ERFORMED BY: KALYN [employer] Thmady5259 [facility] [id number] MCH (RBC) [Entitic mass] 31.4 pg Normal 26.6-33.0 [facility]; [facility] Work Phone: Comment on above: PATIENT WAS FASTINGP ERFORMED BY: KALYN Moniquekym Jmnpjw5809 [facility] [id number] MCHC (RBC) [Mass/Vol] 34.5 g/dL Normal 31.5-35.7 [facility] prehensive Internal Medicine; [facility] Work Phone: Comment on above: PATIENT WAS FASTINGP ERFORMED BY: KALYN [facility] Yxsrbm0318 [facility] [id number] MCV (RBC) [Entitic vol] 91 fL Normal 79-97 [facility]; [facility] Work Phone: Comment on above: PATIENT WAS FASTINGP ERFORMED BY: KALYN Lozoyalin6370 [facility] [id number] Monocytes (Bld) [#/Vol] 0.5 10*3/uL Normal 0.1-0.9 [facility]; [facility] Work Phone: Comment on above: PATIENT WAS FASTINGP ERFORMED BY: KALYN Lozoyalin6370 [facility] [id number] Monocytes/100 WBC (Bld) 7 % Normal [facility]; [facility] Work Phone: Comment on above: PATIENT WAS FASTINGP ERFORMED BY: KALYN [facility]ell[facility] Opimvw9996 [facility] [id number] Neutrophils (Bld) [#/Vol] 5.5 10*3/uL Normal 1.4-7.0 [facility]; [facility] Work Phone: Comment on above: PATIENT WAS FASTINGP ERFORMED BY: KALYN Lablisbet Pnoqvf3736 [facility] [id number] Neutrophils/100 WBC (Bld) 68 % Normal [facility]; [facility] Work Phone: Comment on above: PATIENT WAS FASTINGP ERFORMED BY: KALYN Lozoyalin[address] [facility] [place] [id number] Platelets (Bld) [#/Vol] 227 10*3/uL Normal 150-450 [facility]; [facility] Work Phone: Comment on above: PATIENT WAS FASTINGP ERFORMED BY: KALYN Labelvis LozoyaMlddlp[address] [facility] [place] [id number] RBC (Bld) [#/Vol] 4.55 10*6/uL Normal 3.77-5.28 [facility]; [facility] Work Phone: Comment on above: PATIENT WAS FASTINGP ERFORMED BY: KALYN Labelvis LozoyaJynqfs5[address] Roadblin [place] [id number] WBC (Bld) [#/Vol] 8.2 10*3/uL Normal 3.4-10.8 [facility]; [facility] Work Phone: Comment on above: PATIENT WAS FASTINGP ERFORMED BY: KALYN Lozoyalin[address] [facility] [place] [id number] LIPID PANEL (97958)Ordered B y: Senior Svp on 10-13-2022 Cholesterol [Mass/Vol] 166 mg/dL Normal 100-199 [facility]; [facility] Work Phone: Comment on above: PATIENT WAS FASTINGP ERFORMED BY: KALYN Lozoyalin6370 [facility] [place] [id number] Cholesterol in HDL [Mass/Vol] 42 mg/dL Normal [facility]; [facility] Work Phone: Comment on above: PATIENT WAS FASTINGP ERFORMED BY: KALYN Labelvis Wtitig[address] [facility] [place] [id number] Triglyceride [Mass/Vol] 71 mg/dL Normal 0-149 [facility]; [facility] Work Phone: Comment on above: PATIENT WAS FASTINGP ERFORMED BY: KALYN Labelvis LozoyaBxxnyw[address] [facility] [place] [id number] LIPID PANEL (07213) 14 mg/dL Normal 5-40 [facility]; [facility] Work Phone: Comment on above: PATIENT WAS FASTINGP ERFORMED BY: KALYN [facility] Cgprwh9367 [address] RoadDublin [place] [id number] LIPID PANEL (65452) 110 mg/dL Abnormal 0-99 [facility]; [facility] Work Phone: Comment on above: PATIENT WAS FASTINGP ERFORMED BY: KALYN Labcokym Rbbxxl[address] [facility] [place] [id number] LIPID PANEL (85135) 2.6 {ratio} Normal 0.0-3.2 [facility]; [facility] Work Phone: Comment on above: LDL/HDL Ratio Men Wo men 1/2 Avg.Risk 1.0 1.5 Avg.Risk 3.6 3.2 2X Avg.Risk 6.2 5.0 3X Avg.Risk 8.0 6.1 PATIENT WAS FASTINGP ERFORMED BY: KALYN [facility] Olybuq[address] [facility] [id number] MAGNESIUM (04808)Ordered By: Senior Svp on 10-13-2022 Magnesium [Mass/Vol] 2.0 mg/dL Normal 1.6-2.3 [facility]; [facility] Work Phone: Comment on above: PATIENT WAS FASTINGP ERFORMED BY: KALYN Labelvis Vrqdcm[address] [facility] [place] [id number] METABOLIC PANEL, COMPREHENSI VE (99150)Ordered By: Senior Svp on 10-13-2022 Albumin [Mass/Vol] 4.7 g/dL Normal 3.9-5.0 [facility]; [facility] Work Phone: Comment on above: PATIENT WAS FASTINGP ERFORMED BY: KALYN [facility] Crzbiw[address] [facility] [place] [id number] Albumin/Globulin [Mass ratio] 2.2 {ratio} Normal 1.2-2.2 [facility]; [facility] Work Phone: Comment on above: PATIENT WAS FASTINGP ERFORMED BY: KALYN [facility] Nbkpng7975 [address] [facility] [place] [id number] ALP [Catalytic activity/Vol] 71 U/L Normal 44-121 [facility]; [facility] Work Phone: Comment on above: PATIENT WAS FASTINGP ERFORMED BY: KALYN [facility] Gspfsf8435 [address] RoadDublin [place] [id number] ALT [Catalytic activity/Vol] 13 U/L Normal 0-32 [facility]; [facility] Work Phone: Comment on above: PATIENT WAS FASTINGP ERFORMED BY: CB [facility] Wvusql7[address] RoadDublin [place] [id number] AST [Catalytic activity/Vol] 17 U/L Normal 0-40 [facility]; [facility] Work Phone: Comment on above: PATIENT WAS FASTINGP ERFORMED BY: [facility] Yvayun83[address] RoadDublin [place] [id number] Bilirubin [Mass/Vol] 0.4 mg/dL Normal 0.0-1.2 [facility]; [facility] Work Phone: Comment on above: PATIENT WAS FASTINGP ERFORMED BY: [facility] Encyoj[address] RoadDublin [place] [id number] Calcium [Mass/Vol] 9.5 mg/dL Normal 8.7-10.2 [facility]; [facility] Work Phone: Comment on above: PATIENT WAS FASTINGP ERFORMED BY: [facility] Mgagxl9530 [address] RoadDublin [place] [id number] Chloride [Moles/Vol] 104 mmol/L Normal 96-106 [facility]; [facility] Work Phone: Comment on above: PATIENT WAS FASTINGP ERFORMED BY: CB [facility] Pnrphk2341 [address] RoadDublin [place] [id number] CO2 [Moles/Vol] 22 mmol/L Normal 20-29 [facility]; [facility] Work Phone: Comment on above: PATIENT WAS FASTINGP ERFORMED BY: CB [facility] Sxfukb0099 [address] RoadDublin [place] [id number] Creatinine [Mass/Vol] 0.90 mg/dL Normal 0.57-1.00 [facility] prehensive Internal [facility]; [facility] Work Phone: Comment on above: PATIENT WAS FASTINGP ERFORMED BY: KALYN [facility]ell[facility] Cfpmjd9145 [facility] [id number] GFR/1.73 sq M.predicted among non-blacks MDRD (S/P/Bld) [Vol rate/Area] 89 mL/min/{1.73_m2} Normal Comprehensiv e [facility]; [facility] Work Phone: Comment on above: PATIENT WAS FASTINGP ERFORMED BY: [facility]6370 [facility] [id number] Globulin (S) [Mass/Vol] 2.1 g/dL Normal 1.5-4.5 [facility]; [facility] Work Phone: Comment on above: PATIENT WAS FASTINGP ERFORMED BY: [facility]6370 [facility] [id number] Glucose [Mass/Vol] 82 mg/dL Normal 70-99 [facility]; [facility] Work Phone: Comment on above: PATIENT WAS FASTINGP ERFORMED BY: [facility]6370 [facility] [id number] Potassium [Moles/Vol] 3.5 mmol/L Normal 3.5-5.2 [facility] prehensive Internal Medicine; [facility] Work Phone: Comment on above: PATIENT WAS FASTINGP ERFORMED BY: [facility]6370 [facility] [id number] Protein [Mass/Vol] 6.8 g/dL Normal 6.0-8.5 [facility]; [facility] Work Phone: Comment on above: PATIENT WAS FASTINGP ERFORMED BY: [facility]6370 [facility] [id number] Sodium [Moles/Vol] 142 mmol/L Normal 134-144 [facility]; [facility] Work Phone: Comment on above: PATIENT WAS FASTINGP ERFORMED BY: KALYN Labcokym Uujuwv85[address] RoadDublin [place] [id number] Urea nitrogen [Mass/Vol] 7 mg/dL Normal 6-20 [facility]; [facility] Work Phone: Comment on above: PATIENT WAS FASTINGP ERFORMED BY: KALYN [facility] Ugjfmt0309 [address] RoadDublin [place] [id number] Urea nitrogen/Creatinine [Mass ratio] 8 mg/mg Abnormal 9-23 [facility]; [facility] Work Phone: Comment on above: PATIENT WAS FASTINGP ERFORMED BY: KALYN Labcokym Udgvfd5723 [address] RoadDublin [place] [id number] MICROALB;CREAT RATION, RAND UR ([id number])Ordered By: Senior Svp on 10-13-2022 Albumin DL <= 20 mg/L (U) [Mass/Vol] 40.0 ug/mL Normal [facility]; [facility] Work Phone: Comment on above: PATIENT WAS FASTINGP ERFORMED BY: KALYN [facility] Twsaty5935 [address] RoadDublin [place] [id number] Albumin/Creatinine (U) [Mass ratio] 27 {mg/g_creat} Normal 0-29 [facility]; [facility] Work Phone: Comment on above: Normal: 0 - 29 Moder ately increased: 30 - 300 Severely increased: >300 PATIENT WAS FASTINGP ERFORMED BY: KALYN [facility] Xufjzd1802 [address] RoadDublin [place] [id number] Creatinine (U) [Mass/Vol] 149.7 mg/dL Normal [facility]; [facility] Work Phone: Comment on above: PATIENT WAS FASTINGP ERFORMED BY: KALYN [facility] Daepef1760 [address] RoadDublin [place] [id number] PHOSPHORUS ([id number])Ordered By : Senior Svp on 10-13-2022 Phosphate [Mass/Vol] 3.4 mg/dL Normal 3.0-4.3 Comp [facility]; [facility] Work Phone: Comment on above: PATIENT WAS FASTINGP ERFORMED BY: KALYN [facility] Gzcxww0995 [address] RoadDublin [place] [id number] T4, FREE (THYROXINE) ([id number]) Ordered By: Senior Svp on 10-13-2022 Free T4 [Mass/Vol] 1.12 ng/dL Normal 0.82-1.77 Compre hensive [facility] Medicine; [facility] Work Phone: Comment on above: PATIENT WAS FASTINGP ERFORMED BY: KALYN [facility] Arzyyo[address] RoadD[address] [place] [id number] TSH (THYROID STIMULATING HOR ANDERS) ([id number])Ordered By: Senior Svp on 10-13-2022 TSH Qn 3.410 {uIU/mL} Normal 0.450-4.500 Comprehen sive [facility]; [facility] Work Phone: Comment on above: PATIENT WAS FASTINGP ERFORMED BY: KALYN [facility] Loqqep56[address] RoadD[address] [place] [id number] URINALYSIS, W/ MICRO ([id number]) Ordered By: Senior Svp on 10-13-2022 Appearance (U) Clear Normal Comprehens john [facility]; [facility] Work Phone: Comment on above: PATIENT WAS FASTINGP ERFORMED BY: KALYN Labelvis Lhcngd9540 [address] RoadD[address] [place] [id number] Bilirubin Ql (U) Negative Normal Comprehe nsive Internal Medicine; [facility] Work Phone: Comment on above: PATIENT WAS FASTINGP ERFORMED BY: KALYN [facility] Zybnvj6457 [address] RoadDublin [place] [id number] Color (U) Yellow Normal [facility]; [facility] Work Phone: Comment on above: PATIENT WAS FASTINGP ERFORMED BY: KALYN [facility] Hvigbc8704 [address] RoadD[address] [place] [id number] Glucose Ql (U) Negative Normal Comprehens john [facility]; [facility] Work Phone: Comment on above: PATIENT WAS FASTINGP ERFORMED BY: KALYN [facility] Bbdjwa4607 [address] RoadDublin [place] [id number] Hemoglobin Ql (U) Negative Normal Compreh ensive Internal Medicine; [facility] Work Phone: Comment on above: PATIENT WAS FASTINGP ERFORMED BY: KALYN Misaelelvis Zlnoza[address] [facility] [id number] Ketones Ql (U) Negative Normal Comprehens john [facility]; [facility] Work Phone: Comment on above: PATIENT WAS FASTINGP ERFORMED BY: KALYN Misaelelvis LozoyaHjssgs0168 [facility] [id number] Leukocyte esterase Test strip Ql (U) Trace Abnormal [facility]; [facility] Work Phone: Comment on above: PATIENT WAS FASTINGP ERFORMED BY: KALYN Lozoyalin6370 [facility] [id number] Microscopic observation LM Nom (Urine sed) See below: Normal [facility]; [facility] Work Phone: Comment on above: Microscopic was nubia cated and was performed. PATIENT WAS FASTINGP ERFORMED BY: KALYN Lozoyalin6370 [facility] [id number] Nitrite Ql (U) Negative Normal Comprehens john [facility]; [facility] Work Phone: Comment on above: PATIENT WAS FASTINGP ERFORMED BY: KALYN Lozoyalin6370 [facility] [id number] pH (U) 7.0 [pH] Normal 5.0-7.5 [facility]; [facility] Work Phone: Comment on above: PATIENT WAS FASTINGP ERFORMED BY: KALYN Labelvis LozoyaGxhaqb5910 [facility] [id number] Protein Ql (U) Trace Normal Comprehens john [facility]; [facility] Work Phone: Comment on above: PATIENT WAS FASTINGP ERFORMED BY: KALYN Labelvis LozoyaJrlali8770 [facility] [id number] Specific gravity (U) [Rel density] 1.017 1 Normal 1.005-1.030 [facility]; [facility] Work Phone: Comment on above: PATIENT WAS FASTINGP ERFORMED BY: [facility] Palxcv3406 [facility] [id number] Urobilinogen (U) [Mass/Vol] 0.2 mg/dL Normal 0.2-1.0 [facility]; [facility] Work Phone: Comment on above: PATIENT WAS FASTINGP ERFORMED BY: [facility] Xckcsm0964 [facility] [id number] Final Surgical Pathology Rep jeremy 07-13-2022 Final Surgical Pathology Report . Pathology Reports Accession: Collected Date/Time: Received Date/Time: Pathologist: [id number] 07/12/2022 08:49 EDT 07/12/2022 11:31 EDT QUANG BONDS MD Final Surgical Pathology Report DIAGNOSIS: APPENDIX - NO HISTOLOGIC EVIDENCE OF ACUTE APPENDICITIS. LYMPHOID HYPERPLASIA OF APPENDICEAL MUCOSA. CLINICAL INFORMATION: Procedure: LAPAROSCOPIC APPENDECTOMY Preoperative diagnosis: APPENDICITIS Postoperative diagnosis: APPENDICITIS SPECIMEN: A APPENDIX GROSS DESCRIPTION: A. Received in formalin, labeled with the patients name, Case #[id number], and appendix, Dimensions-10 x 0.6 cm Serosal ofjgabj-xfq-nsmt predominantly smooth Lumen-lumen filled with soft brown fecal material Wall thickness-0.2 cm. RS- 1 Dictated by ERIN KELLEY MICROSCOPIC DESCRIPTION: Slides reviewed. Electronically Signed by Pathology Report verified by [facility] Electronically signed by QUANG BONDS Sign out Date: 07/13/2022 16:00 Performing Lab: [facility], [address] [place] [address] Normal [facility] ([place]) .Auto Diffon 07-11-2022 Basophil, Absolute 0.0 10 3/mcL Normal 0.0-0.2 [facility] ([place]) Comment on above: Performed By: #### TAMICA REYNOLDS #### [address] [address] Basophils/100 WBC (Bld) 0.2 % Normal 0.0-2.5 [facility] ([place]) Comment on above: Performed By: #### Simon RODRÍGUEZ BMP #### [address] [address] Eosinophil, Absolute 0.2 10 3/mcL Normal 0.0-0.4 [facility] ([place]) Comment on above: Performed By: #### Simon FR, BMP #### [address] [address] Eosinophils/100 WBC (Bld) 2.0 % Normal 0.0-7.0 [facility] ([place]) Comment on above: Performed By: #### G FR, BMP #### [address] [address] Lymphocyte, Absolute 0.8 10 3/mcL Normal 0.8-3.9 [facility] ([place]) Comment on above: Performed By: #### Simon RODRÍGUEZ, BMP #### [address] [address] Lymphocytes/100 WBC (Bld) 9.4 % Low 10.0-50.0 [facility] ([place]) Comment on above: Performed By: #### Simon RODRÍGUEZ, BMP #### [address] [address] Monocyte, Absolute 0.7 10 3/mcL Normal 0.2-1.0 [facility] ([place]) Comment on above: Performed By: #### Simon RODRÍGUEZ, BMP #### [address] [address] Monocytes/100 WBC (Bld) 7.8 % Normal 1.7-13.0 [facility] ([place]) Comment on above: Performed By: #### Simon RODRÍGUEZ, BMP #### [address] [address] Neutrophils/100 WBC (Bld) 80.6 % High 37.0-80.0 [facility] ([place]) Comment on above: Performed By: #### Simon RODRÍGUEZ, BMP #### [address] [address] .GFRon 07-11-2022 GFR 92 ml/min/1.73sqm Normal [facility] ([place]) Comment on above: Result Comment: GFR Population mean for , Non- Americans Ages 20-29 = 116 mL/min/1.73 sq.m. Ages 30-39 = 107 mL/min/1.73 sq.m. Ages 40-49 = 99 mL/min/1.73 sq.m. Ages 50-59 = 93 mL/min/1.73 sq.m. Ages 60-69 = 85 mL/min/1.73 sq.m. Ages 70+ = 75 mL/min/1.73 sq.m. Chronic Kidney Disease: Less than 60 mL/min/1.73 square meters End Stage Renal Disease: Less than 15 mL/min/1.73 square meters Performed By: #### G , BMP #### [address] [address] GFR Non- 76 ml/min/1.73sqm Normal [facility] ([place]) Comment on above: Result Comment: GFR Population mean for , Non- Americans Ages 20-29 = 116 mL/min/1.73 sq.m. Ages 30-39 = 107 mL/min/1.73 sq.m. Ages 40-49 = 99 mL/min/1.73 sq.m. Ages 50-59 = 93 mL/min/1.73 sq.m. Ages 60-69 = 85 mL/min/1.73 sq.m. Ages 70+ = 75 mL/min/1.73 sq.m. Chronic Kidney Disease: Less than 60 mL/min/1.73 square meters End Stage Renal Disease: Less than 15 mL/min/1.73 square meters Performed By: #### G , BMP #### [address] [address] .MDWon 07-11-2022 Monocyte Distribution Width 18.95 Normal 0.00-20.00 [facility] ([place]) Comment on above: Result Comment: For ED adult patients suspected of sepsis, MDW<=20.0 does not rule out sepsis or risk of sepsis Performed By: #### G FR, BMP #### [address] [address] .NEUABSon 07-11-2022 Neutrophil, Absolute 7.0 10 3/mcL High 2.9-6.2 [facility] ([place]) Comment on above: Performed By: #### G FR, BMP #### [address] [address] .Urinalysis Microscopic (AO) on 07-11-2022 UA RBC 0-5 Abnormal None Seen [facility] ([place] Comment on above: Performed By: #### U AMICAO, PREGU, UA ####[id number] [place], [place] [address] UA Squam Epithelial 5-10 Abnormal None Seen [facility] ([place]) Comment on above: Performed By: #### U AMICAO, PREGU, UA ####[id number] [place], [place] [address] UA WBC 0-5 Abnormal None Seen [facility] ([place] Comment on above: Performed By: #### U AMICAO, PREGU, UA ####[address] [address] BMPon 07-11-2022 BUN/Creatinine Ratio 8 ratio Normal 7-27 [facility] ([place]) Comment on above: Performed By: #### G FR, BMP #### [address] [address] Calcium [Mass/Vol] 8.9 mg/dL Normal 8.4-10.2 [facility] ([place]) Comment on above: Performed By: #### G FR, BMP #### [address] [address] Chloride [Moles/Vol] 103 mmol/L Normal 98-107 [facility] ([place]) Comment on above: Performed By: #### G FR, BMP #### [address] [address] CO2 [Moles/Vol] 26 mmol/L Normal 22-29 Pending [facility] to [facility] ([place]) Comment on above: Performed By: #### G FR, BMP #### [address] [address] Creatinine [Mass/Vol] 0.88 mg/dL Normal 0.55-1.02 [facility] ([place]) Comment on above: Performed By: #### G FR, BMP #### [address] [address] Electrolyte Balance 10.0 mEq/L Normal 4.0-15.0 [facility] ([place] Comment on above: Performed By: #### G FR, BMP #### [address] [address] Glucose [Mass/Vol] 154 mg/dL High 70-105 [facility] ([place] Comment on above: Performed By: #### G FR, BMP #### [address] [address] Potassium [Moles/Vol] 3.8 mmol/L Normal 3.5-5.1 [facility] ([place]) Comment on above: Performed By: #### G FR, BMP #### [address] [address] Sodium [Moles/Vol] 139 mmol/L Normal 136-145 [facility] [place] Comment on above: Performed By: #### G FR, BMP #### [address] [address] Urea nitrogen [Mass/Vol] 7 mg/dL Normal 7-18 [facility] ([place] Comment on above: Performed By: #### G FR, BMP #### [address] [address] CBCon 07-11-2022 Erythrocyte distribution width (RBC) [Ratio] 12.5 % Normal 11.5-14.5 [facility] ([place] Comment on above: Performed By: #### G FR, BMP #### [address] [address] Hematocrit (Bld) [Volume fraction] 37.6 % Normal 37.0-47.0 [facility] ([place] Comment on above: Performed By: #### G FR, BMP #### [address] [address] Hgb 13.5 G/dL Normal 12.0-16.0 [facility] ([place] Comment on above: Performed By: #### Simon FR, BMP #### [address] [address] MCH (RBC) [Entitic mass] 32.6 pg High 27.0-31.2 [facility] ([place] Comment on above: Performed By: #### G FR, BMP #### [address] [address] MCHC 36.1 G/dL Normal 33.0-37.0 [facility] ([place] Comment on above: Performed By: #### Simon FR, BMP #### [address] [address] MCV (RBC) [Entitic vol] 90.5 fL Normal 80.0-94.0 [facility] ([place]) Comment on above: Performed By: #### Simon RODRÍGUEZ, BMP #### [address] [address] Platelet 258 10 3/mcL Normal 130-400 [facility] ([place]) Comment on above: Performed By: #### Simon FR, BMP #### [address] [address] Platelet mean volume (Bld) [Entitic vol] 7.4 fL Normal 7.4-10.4 [facility] ([place]) Comment on above: Performed By: #### Simon FR, BMP #### [address] [address] RBC 4.15 10 6/mcL Low 4.20-5.40 [facility] ([place]) Comment on above: Performed By: #### G FR, BMP #### [address] [address] WBC 8.7 10 3/mcL Normal 4.6-10.8 [facility] ([place]) Comment on above: Performed By: #### G FR, BMP #### [address] [address] [address] ABD/PELVIS W/ IV CONTRAST ONLYon 07-11-2022 CT ABD/PELVIS W/ IV CONTRAST ONLY ORIGINAL HISTORY: Right lower quadrant pain COMPARISON: No TECHNIQUE: CT of the Abdomen and Pelvis following uncomplicated administration of intravenous contrast, with sagittal and coronal reconstructions. This exam was performed according to our departmental dose optimization program, and includes the following measures where applicable: automated exposure control, adjustment of the mAs and/or kVp according to patient size and/or exam, and an iterative reconstruction algorithm. FINDINGS: The abdominal organs are unremarkable in appearance. There is an intrauterine device. The appendix appears slightly prominent at 6 mm in diameter. There are mild inflammatory changes at the tip of the appendix. There is a 3.4 cm left adnexal cyst. There is aqts-co-oqrzjqll hemoperitoneum. IMPRESSION: Findings are suggestive of mild or early acute appendicitis. There is also eslr-wn-otvhstiw hemoperitoneum, possibly related to a left adnexal cyst. Interpreted by: Angel Patel MD Preliminary Report By: Angel Patel MD Electronically signed By Angel Patel MD Dictated Date: 07/11/2022 9:16:10 PM Prelim Date: 07/11/2022 9:20:49 PM Sign Date: 07/11/2022 9:20:49 PM Ordering Provider: STEPHANIE LAINEZ Normal [facility] ([place]) PREGUon 07-11-2022 HCG ( test) Ql (U) Negative Normal [facility] ([place]) Comment on above: Performed By: #### U AMICAO, PREGU, UA #### [facility] [address] [place], [place] [address] test (u) int Not detected Invalid Interpretation Code [facility] ([place]) Comment on above: Performed By: #### U AMICAO, PREGU, UA #### Shayy Timpson [address] [place], [place] [address] UAon 07-11-2022 Color (U) Yellow Normal [facility] ([place]) Comment on above: Performed By: #### U AMICAO, PREGU, UA #### Shay[address] [place], [place] [address] Glucose (U) [Mass/Vol] Negative Normal Negative [facility] ([place]) Comment on above: Performed By: #### U AMICAO, PREGU, UA #### Shayy [address] [address] Ketones Ql (U) Negative Normal Negative [facility] ([place]) Comment on above: Performed By: #### U AMICAO, PREGU, UA #### Shayy [address] [address] UA Appear Clear Normal Clear [facility] ([place] Comment on above: Performed By: #### U AMICAO, PREGU, UA #### Shayy [address] [address] UA Blood Negative Normal Negative [facility] ([place]) Comment on above: Performed By: #### U AMICAO, PREGU, UA #### [address] [place] [id number] UA Leuk Est Trace Abnormal Negative [facility] ([place]) Comment on above: Performed By: #### U AMICAO, PREGU, UA #### [address] [place] [id number] UA Nitrite Negative Normal Negative [facility] ([place]) Comment on above: Performed By: #### U AMICAO, PREGU, UA #### Shayy [address] [address] UA pH 7.0 Normal 5.0 - 8.0 [facility] ([place]) Comment on above: Performed By: #### U AMICAO, PREGU, UA #### Shayy [address] [address] UA Protein Negative Normal Negative [facility] ([place]) Comment on above: Performed By: #### U AMICAO, PREGU, UA #### Shayy [address] [address] UA Spec Grav 1.015 Normal 1.015-1.025 [facility] ([place]) Comment on above: Performed By: #### U AMICAO, PREGU, UA #### Shayy [address] [address] UA Specimen Type Clean Catch Normal [facility] ([place]) Comment on above: Performed By: #### U AMICAO, PREGU, UA #### [facility] [address] [place], [place] [address] UA Urobilinogen 0.2 E.U./dL Normal 0.2-1.0 [facility] ([place]) Comment on above: Performed By: #### U AMICAO, PREGU, UA #### [facility] [address] [place], [place] [address] Urobilinogen (U) [Mass/Vol] Negative Normal Negative [facility] ([place]) Comment on above: Performed By: #### U AMICAO, PREGU, UA #### [place] [id number] [place], [place] [address] Basophil percentageon 2021 Bilirubin [Mass/Vol] 0.60 mg/dL 0.20-1.00 [facility] Work Phone: Comment on above: For patients on eltr ombopag therapy, use of Dimension Natoma TBIL is not recommended. Chloride [Moles/Vol] 104 mmol/L 98-107 [facility] Work Phone: Glucose [Mass/Vol] 83 mg/dL 74-106 [facility] Work Phone: Potassium [Moles/Vol] 3.4 mmol/L 3.5-5.1 [facility] Work Phone: Protein [Mass/Vol] 7.6 g/dL 6.4-8.2 [facility] Work Phone: Sodium [Moles/Vol] 137 mmol/L 136-145 [facility] Work Phone: Laboratory - Chemistry and C hemistry - challengeon 03-16-2022 ALP [Catalytic activity/Vol] 71 U/L 45-117 [facility] Work Phone: ALT [Catalytic activity/Vol] 22 U/L 13-56 [facility] Work Phone: CO2 [Moles/Vol] 28.0 mmol/L 21.0-32.0 [facility] Work Phone: Globulin (S) [Mass/Vol] 3.5 g/dL 2.2-4.2 [facility] Work Phone: Urea nitrogen/Creatinine [Mass ratio] 10.1 mg/mg 10-20 [facility] Work Phone: No Panel Informationon 03-16 Estimated GFR (MDRD) Amer 110 mL/min >60 [facility] Work Phone: Comment on above: GFR Calc Estimated GFR (MDRD) Non-Af Amer 91 mL/min >60 [facility] Work Phone: Comment on above: Non- GFR Calc Serum or plasma albumin liza urement (mass/volume)on 03-16-2022 Albumin [Mass/Vol] 4.1 g/dL 3.2-5.0 [facility] Work Phone: Serum or plasma albumin/glob ulin mass ratioon 03-16-2022 Albumin/Globulin [Mass ratio] 1.2 {ratio} 0.9-2.4 [facility] Work Phone: Serum or plasma calcium liza urement (mass/volume)on 03-16-2022 Calcium [Mass/Vol] 8.8 mg/dL 8.5-10.1 [facility] Work Phone: Serum or plasma creatinine m easurement (mass/volume)on 03-16-2022 Creatinine [Mass/Vol] 0.79 mg/dL 0.55-1.02 [facility] Work Phone: Comment on above: The validity of the calculated GFR & GFRAA in patients over 70 years has not been determined. Clinical correlation is essential. Serum or plasma urea nitroge n measurement (mass/volume)on 03-16-2022 Urea nitrogen [Mass/Vol] 8 mg/dL 7-18 [facility] Work Phone: Thin prep Papanicolaou smear with manual screeningon 03-16-2022 Thin prep Papanicolaou smear with manual screening 16 U/L 15-37 [facility] Work Phone: Thin prep Papanicolaou smear with manual screening 5 5-15 [facility] Work Phone: Chlamydia trachomatis rRNA d etection by probe and target amplification methodon 02-25-2022 C. trachomatis rRNA VISHAL+probe Ql (Unsp spec) Negative Negative [facility] Work Phone: Laboratory - Chemistry and C hemistry - challengeon 02-25-2022 HCG ( test) Ql (U) Negative [facility] Work Phone: Laboratory - Microbiology an d Antimicrobial susceptibilityon 02-25-2022 N. gonorrhoeae DNA VISHAL+probe Ql (Unsp spec) Negative Negative [facility] Work Phone: Comment on above: Performed at: = - L [address] [id number] Director: Kelly Dominguez MD, Phone: [phone] TSH ([id number])Ordered By: Ricardo philip Mailing Machine Operator on 09-28-2021 TSH Qn 1.060 {uIU/mL} Normal 0.450-4.500 [facility]lene [facility]; [facility] Work Phone: Comment on above: PATIENT NOT FASTINGP ERFORMED BY: KALYN Labco [id number] [facility] [id number] JSon 06-14-2020 [facility] REPORT Normal [facility] DATE OF SERVICE: 06/14/2020 HISTORY OF PRESENT ILLNESS: A 25-year-old female presents today as a telehealth virtual health visit. Permission was obtained by the patient to complete this as a telehealth visit and webcam was used to complete the entire duration of the visit. Patient says that she has noticed some circular rashes present on her arms, legs, stomach and also on her head. She says that the rash does come and go. It does itch. It is not painful. No drainage. It is slightly red. No itchy scratchy throat. No trouble breathing. She has been working outside in her yard a lot and they did recently just buy a new house. She is unsure if any of that may have precipitated things. Symptoms have been going on for about 2 weeks now. PAST MEDICAL HISTORY: None. PAST SURGICAL HISTORY: Significant for wisdom teeth removal. SOCIAL HISTORY: Denies tobacco use. Does report occasional alcohol use. FAMILY HISTORY: Significant for heart disease and high blood pressure. [facility] PATIENT NAME: MICHELINE SABA [address] [facility] [address] Garcia MEDICAL REC #: [id number] [place] [address] [facility] REPORT [facility] PHYSICIAN MEDICATIONS: Include control. ALLERGIES: No known drug allergies. No other allergies indicated. REVIEW OF SYSTEMS: Constitutional: No fevers, chills, fatigue. HEENT: No itchy scratchy throat. No sore throat or trouble breathing. Pulmonary: No cough or shortness of breath. Skin: She does have a red itching rash that is circular in nature present on her head, her arms, her legs. She said no one else in her household has a similar rash. The rash does come and go. PHYSICAL EXAMINATION: Vitals unable to be assessed. General Appearance: Patient is sitting in her home, no acute distress, alert and oriented x3. Skin: Patient does have an annular lesion with some redness and crusting around the edges present on her chest. This was the only rash that I was able to visualize through the webcam. No other components of physical exam able to be completed due to the fact this is a telehealth visit. ASSESSMENT AND PLAN: Diagnosis is rash, possible tinea. I did e-prescribe over griseofulvin 500 mg once a day for 14 days. Told her if symptoms are [facility] PATIENT NAME: [facility] MEDICAL REC #: [id number] [place] [address] [facility] RE[facility] PHYSICIAN not improving or if anything worsens, she does need to be seen in person. Patient was agreeable with this treatment approach. All questions answered. SUSI Santo/[id number] [facility] File#: [id number] END OF DOCUMENT / CHANGE LOG FOLLOWS Last Edited By Carrie. Signed By Melissa Morin PAC #Melissa Solis PAC #ROCKY on 06/14/2020 15:57 ET on 06/14/2020 15:57 ET Revision Number - 2 Verified/Reviewed by 06/14/[address] [facility] PATIENT NAME: MICHELINE SABA [address] Garcia MEDICAL REC #: [id number] [place] [address] [facility] RE[facility] PHYSICIAN Normal [facility] Progress Noteon 09-18-2019 [employer] Supervisor Authentication Interface Message Text Returning patient 09/18/2019 RE: Micheline Saba : 1995 AGE: 24 y.o. CSN#: [id number] Gestational Age: 32 Weeks Delivery Hospital: [facility] Reason for visit: Chief Complaint Patient presents with ECHO echo for LSVC, to rule out any aortic arch obstruction Other indications: Cardiac Abnormality Suspected on Obstetrical Ultrasound OB History 3 Para 2 Term 2 AB Living 2 SAB TAB Ectopic Multiple Live Births 2 Counseling and/or coordination of care (face to face time in the office/outpatient setting or floor/unit time in the hospital) was greater than 40 minutes which is more than 50% of the total time of 60 minutes spent on the encounter. In addition, the following items were performed before, during and after this visit: Synthesis of current imaging findings. Results for orders placed or performed in visit on 09/18/19 [place] [address] [email or web address] Echocardiogram Report M-mode, complete 2D, complete spectral Doppler, and color Doppler PATIENT: Micheline Saba STUDY DATE/TIME: Sep 18 2019 2:09PM HEIGHT: : 1995 WEIGHT: 85.3kg AGE: 24yr BSA/BMI: / GENDER: F BP: 129 / 82 LOCATION: [facility] REFERRING PHYSICIAN: Ezio Holguin Jodi ORDERING PROVIDER: ROSMERY Florence READING PHYSICIAN: ROSMERY Florence WIRE TECHNICIAN: ROSMERY Florence SUMMARY: 1. 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 2. : From the three vessel view the superior vena cava measures: 5.80mm, The aorta measures: 6.00mm, The left superior vena cava measures 4.3 mm. The main pulmonary artery measures: 9.70mm. 3. 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 4. There is mild discrepency in size of the ventricles with the right larger than left. 5. Left aortic arch with normal brachiocephalic branching. No arch hypoplasia. aortic isthmus was 3.6-4.2 mm. By color Doppler across the aortic arch there was normal flow. No retrograde flow in the aortic arch. The main pulmonary artery was 9.7mm, aorta 6mm on three vessel view. 6. Normal biventricular function. The left ventricle was reaching the apex of the heart. 7. This study is limited in evaluating minor valve abnormalities, septal defects, partial anomalous pulmonary venous connection, and aortic arch abnormalities. 8. The above findings, including the limitations, were discussed with the patient. 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 9. Rec echocardiogram at 2 weeks of age at [facility] to R/O any arch obstruction due to left superior vena cava.. REASON FOR EXAM: LSVC. STUDY AND PROCEDURE DATA: Procedure Description: Follow-Up ([id number]) . Study status: Routine. Location: lab. Procedure: Transabdominal echocardiography for congenital heart disease evaluation. Patient status: Outpatient. Blood pressure: 129/82 Maternal age: 24yr. : 3. Parity: 2. Expected delivery date: 11/11/2019. Gestational age: 32wk. Trimester: 3rd trimester. FINDINGS: DESCRIPTION One fetus is present. Abnormal three vessel view. From the three vessel view the superior vena cava measures: 5.80mm, The aorta measures: 6.00mm, The left superior vena cava measures 4.3 mm. The main pulmonary artery measures: 9.70mm. The rhythm is sinus rhythm, with a heart rate of 143bpm. The position is vertex. Normal Doppler pattern of the ductus venosus, umbilical artery, and vein. Three vessel cord. ANATOMIC RELATIONSHIPS - Normal visceral situs, with left sided stomach. Left sided cardiac apex (levocardia).Normally related great vessels. VEINS AND ATRIA Atrial septum - There is a patent foramen ovale. There is a agpkd-tg-[id number] shunt. Left atrium - The atrium is normal in size. Right atrium - The atrium is normal in size. Systemic veins - Inferior vena cava and superior vena cava seen entering normally into the right atrium. The left superior vena cava drains into the dilated coronary sinus. Pulmonary veins: There are at least 2 out of 4 pulmonary veins seen entering normally into the left atrium, with normal Doppler pattern. A-V CANAL Tricuspid valve - The valve is structurally normal. - There is normal biphasic inflow spectral Doppler. There is no regurgitation. Mitral valve - The valve is structurally normal. - There is normal biphasic inflow spectral Doppler. There is no regurgitation. VENTRICLES Right ventricle - The cavity size is normal. Wall thickness is normal. Systolic function is qualitatively normal. The right ventricle width was 1.75 cm, length was 2.27 cm. Left ventricle - The cavity size is normal. Wall thickness is normal. Systolic function is quantitatively normal. The endocardial fractional shortening (MM) is 35%. The left ventricle width was 1.30 cm, length was 2.27 cm. CONOTRUNCUS Aortic valve - The valve is structurally normal. - There is no stenosis. There is no regurgitation. Pulmonic valve - The valve is structurally normal. - There is no stenosis. There is no regurgitation. GREAT ARTERIES Aorta - Left aortic arch and normal branching pattern is demonstrated. Normal ductal arch seen. Normally related great arteries. Pulmonary arteries - The proximal branch pulmonary arteries are normal. - Main pulmonary artery: The artery is of normal size. Systemic-pulmonary shunts - Patent ductus arteriosus. Normal pulsed wave Doppler pattern. The patent ductus arteriosus measures 6.2 mm at level of the isthmus. PERICARDIUM - There is no significant pericardial effusion. *Measurements* Value 07/31/2019 Ref Z Biparietal (N) 8.41 cm 6.71 7.42 0.8 diam - 8.81 Head 30.09 cm 23.42 ---- ---- circum Abdominal 28.94 cm 21.50 ---- ---- circum Femur 6.52 cm 4.83 ---- ---- length Humerus 5.63 cm ---- ---- length Weight 2157 g 889 ---- ---- (est) Cardiac 126.50 mm^2 69.60 ---- ---- area Thoracic 442.5 mm^2 228.4 ---- ---- area Ao isthmus (N) 0.42 cm 0.32 0.34 -0.4 diam - 0.55 CA/TA 0.29 0.3 ---- ---- Femur/BPD 0.78 0.72 ---- ---- TrV stephanie 1.07 cm 0.93 ---- ---- MiV stephanie 0.79 cm 0.74 ---- ---- RV long (N) 2.27 cm 1.83 -0.3 axis, D - 2.88 RV short (N) 1.65 cm 1.09 1.04 1.9 axis, D - 1.67 LV long (N) 2.42 cm 1.91 -0.3 axis, D - 3.09 LV short (N) 1.24 cm 0.98 1.03 -0.8 axis, D - 1.76 Left ventricle Value 07/31/2019 Ref Z GLENN, MM 1.24 cm ---- ---- ESD, MM 0.81 cm ---- ---- FS, MM 35 % ---- ---- Mid-wall 14 % ---- ---- FS, MM PW, ED MM 0.34 cm ---- ---- PW, ES MM 0.37 cm ---- ---- PW 9 % ---- ---- thickening , MM PW/ID 0.27 ---- ---- ratio, ED MM IVS/PW 0.91 ---- ---- ratio, ED MM Rel 0.55 ---- ---- thickness, ED MM EDV, MM 4 ml ---- ---- Teich. ESV, MM 1 ml ---- ---- Teich. EF, MM 68 % ---- ---- Teich. Mass, MM 5 g ---- ---- Right ventricle Value 07/31/2019 Ref Z GLENN, MM 1.7 cm ---- ---- Ventricular Value 07/31/2019 Ref Z septum IVS, ED MM 0.31 cm ---- ---- IVS, ES MM 0.50 cm ---- ---- IVS 61 % ---- ---- thickening , MM Aortic valve Value 07/31/2019 Ref Z Peak v, S 1.1 m/sec ---- ---- Mean v, S 0.67 m/sec ---- ---- VTI, S 12.9 cm ---- ---- Mean grad, 2 mm Hg ---- ---- S Peak grad, 5 mm Hg ---- ---- S Mitral valve Value 07/31/2019 Ref Z Peak E 0.47 m/sec ---- ---- Peak A 0.73 m/sec ---- ---- Mean v, D 0.37 m/sec ---- ---- Mean grad, 1 mm Hg ---- ---- D Peak E/A 0.64 ---- ---- ratio A-VTI 8.9 cm ---- ---- Pulmonic valve Value 07/31/2019 Ref Z Peak v, S 0.92 m/sec ---- ---- Mean mauricio, 0.54 m/sec ---- ---- S Mean grad, 1 mm Hg ---- ---- S Peak grad, 3 mm Hg ---- ---- S Legend: (H) and (L) kit values outside specified reference range. 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 Interpreted and electronically signed by ROSMERY Florence 09/18/2019 16:16 Normal [facility] Progress Noteon 07-31-2019 [employer] Supervisor Authentication Interface Message Text New patient 08/01/2019 RE: Micheline Saba : 1995 AGE: 24 y.o. [facility]#: [id number] Gestational Age: 25 Weeks Delivery Hospital: [facility] Reason for visit: Chief Complaint Patient presents with ECHO echo for suspected LSVC Other indications: Cardiac Abnormality Suspected on Obstetrical Ultrasound OB History 3 Para 2 Term 2 AB Living 2 SAB TAB Ectopic Multiple Live Births 2 Counseling and/or coordination of care (face to face time in the office/outpatient setting or floor/unit time in the hospital) was greater than 40 minutes which is more than 50% of the total time of 60 minutes spent on the encounter. In addition, the following items were performed before, during and after this visit: Synthesis of current imaging findings. Results for orders placed or performed in visit on 07/31/19 Echo New Narrative [facility] [place] [address] [email or web address] Echocardiogram Report M-mode, complete 2D, complete spectral Doppler, and color Doppler PATIENT: Micheline Saba STUDY DATE/TIME: Jul 31 2019 10:34AM HEIGHT: : 1995 WEIGHT: 83.9kg AGE: 24yr BSA/BMI: / GENDER: F BP: 128 / 86 [facility]ATION: [facility] [facility] REFERRING PHYSICIAN: Ezio Holguin, --- Abby Carreon ORDERING PROVIDER: Mirian Akhtar Cnp READING PHYSICIAN: ROSMERY Florence WIRE TECHNICIAN: Crista Moyer RDCS SUMMARY: 1. 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 2. : From the three vessel view the right superior vena cava measures: 3.40mm, The aorta measures: 4.90mm, The main pulmonary artery measures: 6.30mm. The left superior vena cava measures 2.8 mm. 3. 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 4. Left aortic arch with normal brachiocephalic branching. No arch hypoplasia. The transverse arch was 3.9 mm, aortic isthmus was 3.2mm. By color Doppler across the aortic arch there was normal flow. No retrograde flow in the aortic arch. 5. Normal biventricular function. The left ventricle was reaching the apex of the heart. 6. This study is limited in evaluating minor valve abnormalities, septal defects, partial anomalous pulmonary venous connection, and aortic arch abnormalities. 7. The above findings, including the limitations, were discussed with the patient. 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 Recommendations: follow-up echocardiographic evaluation is recommended in 8wk. REASON FOR EXAM: LSVC. STUDY AND PROCEDURE DATA: Procedure Description: New ([id number]) . Study status: Routine. Location: lab. Procedure: Transabdominal echocardiography for congenital heart disease evaluation. Patient status: Outpatient. Blood pressure: 128/86 Maternal age: 24yr. : 3. Parity: 2. Expected delivery date: 11/08/2019. Gestational age: 25wk. Trimester: 2nd trimester. FINDINGS: DESCRIPTION One fetus is present. Abnormal three vessel view. From the three vessel view the right superior vena cava measures: 3.40mm, The aorta measures: 4.90mm, The main pulmonary artery measures: 6.30mm. The left superior vena cava measures 2.8 mm. The rhythm is sinus rhythm, with a heart rate of 157bpm. The position is vertex. Normal Doppler pattern of the ductus venosus, umbilical artery, and vein. Three vessel cord. ANATOMIC RELATIONSHIPS - Normal visceral situs, with left sided stomach. Left sided cardiac apex (levocardia).Normally related great vessels. VEINS AND ATRIA Atrial septum - There is a patent foramen ovale. There is a [id number]-lrav shunt. Left atrium - The atrium is normal in size. Right atrium - The atrium is normal in size. Systemic veins - Inferior vena cava and superior vena cava seen entering normally into the right atrium. The left superior vena cava drains into the dilated coronary sinus. Pulmonary veins: There are at least 2 out of 4 pulmonary veins seen entering normally into the left atrium, with normal Doppler pattern. A-V CANAL Tricuspid valve - The valve is structurally normal. - There is normal biphasic inflow spectral Doppler. There is no regurgitation. Mitral valve - The valve is structurally normal. - There is normal biphasic inflow spectral Doppler. There is no regurgitation. VENTRICLES Right ventricle - The cavity size is normal. Wall thickness is normal. Systolic function is qualitatively normal. Left ventricle - The cavity size is normal. Wall thickness is normal. Systolic function is quantitatively normal. The endocardial fractional shortening (MM) is 41%. CONOTRUNCUS Aortic valve - The valve is structurally normal. - There is no stenosis. There is no regurgitation. Pulmonic valve - The valve is structurally normal. - There is no stenosis. There is no regurgitation. GREAT ARTERIES Aorta - Left aortic arch and normal branching pattern is demonstrated. Normal ductal arch seen. Normally related great arteries. Pulmonary arteries - The proximal branch pulmonary arteries are normal. - Main pulmonary artery: The artery is of normal size. Systemic-pulmonary shunts - Patent ductus arteriosus. Normal pulsed wave Doppler pattern. PERICARDIUM - There is no significant pericardial effusion. *Measurements* Value Ref Z Biparietal diam (N) 6.71 cm 5.56 - 2.0 6.71 Head circum 23.42 cm ------ ---- Abdominal circum 21.50 cm ------ ---- Femur length 4.83 cm ------ ---- Humerus length 4.16 cm ------ ---- Transcerebellar 2.68 cm ------ ---- diameter Weight (est) 889 g ------ ---- Cardiac area 69.60 mm^2 ------ ---- Thoracic area 228.4 mm^2 ------ ---- Transv arch diam (N) 0.39 cm 0.29 - 0.0 0.49 Ao isthmus diam (N) 0.32 cm 0.25 - -0.3 0.43 CA/TA 0.3 ------ ---- Femur/BPD 0.72 ------ ---- TrV stephanie 0.93 cm ------ ---- MiV stephanie 0.74 cm ------ ---- RV short axis, D (N) 1.09 cm 0.72 - 1.1 1.19 LV short axis, D (N) 0.98 cm 0.71 - 0.0 1.24 Left ventricle Value Ref Z GLENN, MM 0.98 cm ------ ---- ESD, MM 0.58 cm ------ ---- FS, MM 41 % ------ ---- Mid-wall FS, MM 16 % ------ ---- PW, ED MM 0.28 cm ------ ---- PW, ES MM 0.26 cm ------ ---- PW thickening, MM -7 % ------ ---- PW/ID ratio, ED MM 0.29 ------ ---- IVS/PW ratio, ED 0.75 ------ ---- MM Rel thickness, ED 0.57 ------ ---- MM EDV, MM Teich. 2 ml ------ ---- ESV, MM Teich. 1 ml ------ ---- EF, MM Teich. 74 % ------ ---- Mass, MM 2 g ------ ---- Right ventricle Value Ref Z GLENN, MM 1.1 cm ------ ---- Ventricular septum Value Ref Z IVS, ED MM 0.21 cm ------ ---- IVS, ES MM 0.33 cm ------ ---- IVS thickening, MM 57 % ------ ---- Aortic valve Value Ref Z Peak v, S 0.8 m/sec ------ ---- Mean v, S 0.49 m/sec ------ ---- VTI, S 9.4 cm ------ ---- Mean grad, S 1 mm Hg ------ ---- Peak grad, S 3 mm Hg ------ ---- Mitral valve Value Ref Z Peak E 0.4 m/sec ------ ---- Peak A 0.62 m/sec ------ ---- Mean v, D 0.32 m/sec ------ ---- Mean grad, D 1 mm Hg ------ ---- Peak E/A ratio 0.65 ------ ---- A-VTI 7.4 cm ------ ---- Tricuspid valve Value Ref Z Peak E 0.39 m/sec ------ ---- Peak A 0.61 m/sec ------ ---- Peak E/A 0.64 ------ ---- Mean mauricio, D 0.32 m/sec ------ ---- Mean grad, D 1 mm Hg ------ ---- VTI at annulus 6.6 cm ------ ---- Pulmonic valve Value Ref Z Peak v, S 0.77 m/sec ------ ---- Mean mauricio, S 0.49 m/sec ------ ---- Mean grad, S 1 mm Hg ------ ---- Peak grad, S 2 mm Hg ------ ---- Legend: (H) and (L) kit values outside specified reference range. 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 Interpreted and electronically signed by ROSMERY Florenec 08/01/2019 11:42 Normal [facility] Progress Noteon 06-05-2019 [employer] Super[employer] Authentication Interface Message Text Met with patient who is surrogate for Lb Here for amniocentesis Pt is rH negative Psycho/Social risk: Support System: and extended family Financial Stressors: denies Family Dynamics: lives with and children Behavioral Health Issues: denies Pt plans to deliver at [place] with Dr. Carreon. Reinforced continued OB care with Dr Carreon The total patient time of the visit was 5 minutes, of which greater than 50% of the time was spent counseling and coordinating care. Normal [facility] [employer] Authentication Interface Message Text The total patient time of the visit was 30 minutes, of which greater than 50% of the time was spent counseling and coordinating care. Normal [facility] Type AND Antibody Screenon 0 06-05-2019 Direct Antiglobulin Test Negative [facility] Comment on above: Performed By: #### T /S #### [place] [address] Screening Cells Negative [facility] Comment on above: Performed By: #### T /S #### [facility] [address] [place] [address] ABO Type O Normal [facility] Comment on above: Performed By: #### T /S #### [facility] acute hospital [address] [place] [address] RH Type Negative Normal [facility] Comment on above: Performed By: #### T /S #### [facility] [address] [place] [address] Progress Noteon 05-29-2019 [employer] Supervisor Authentication Interface Message Text Patient prefers to reschedule GC visit. Normal [facility] Vital Signs Date Time Vital Sign Value Performing Clinician Facility 07-17-2025 08:58-0400 Body height 160.02 cm Rachel Bryant OR NURSE MANAGER-C Work Phone: [facility] 07-17-2025 08:56-0400 Body mass index (BMI) [Ratio] 32.1 kg/m2 Rachel Bryant OR NURSE MANAGER-C Work Phone: [facility] 07-17-2025 08:56-0400 Body weight 82.1 kg Rachel Bryant OR NURSE MANAGER-C Work Phone: [facility] 07-17-2025 08:56-0400 Diastolic blood pressure 95 mm[Hg] Rachel Bryant OR NURSE MANAGER-C Work Phone: [facility] 07-17-2025 08:56-0400 Systolic blood pressure 145 mm[Hg] Rachel Bryant OR NURSE MANAGER-C Work Phone: [facility] 06-19-2025 10:16-0400 Body height 160.02 cm Rachel Bryant OR NURSE MANAGER-C Work Phone: [facility] 06-19-2025 10:16-0400 Body mass index (BMI) [Ratio] 31.4 kg/m2 Rachel Bryant OR NURSE MANAGER-C Work Phone: [facility] 06-19-2025 10:16-0400 Body weight 80.48 kg Rachel Bryant OR NURSE MANAGER-C Work Phone: [facility] 06-19-2025 10:16-0400 Diastolic blood pressure 82 mm[Hg] Rachel Bryant OR NURSE MANAGER-C Work Phone: [facility] 06-19-2025 10:16-0400 Systolic blood pressure 116 mm[Hg] Rachel Bryant OR NURSE MANAGER-C Work Phone: [facility] 05-20-2025 13:50-0400 Body height 160.02 cm Micheline Schaefer OR NURSE MANAGER-C Work Phone: [facility] 05-20-2025 13:50-0400 Body mass index (BMI) [Ratio] 31 kg/m2 Micheline Schaefer OR NURSE MANAGER-C Work Phone: [facility] 05-20-2025 13:50-0400 Body weight 79.43 kg Micheline Schaefer OR NURSE MANAGER-C Work Phone: [facility] 05-20-2025 13:50-0400 Diastolic blood pressure 88 mm[Hg] Micheline Schaefer OR NURSE MANAGER-C Work Phone: [facility] 05-20-2025 13:50-0400 Systolic blood pressure 129 mm[Hg] Micheline Schaefer OR NURSE MANAGER-C Work Phone: [facility] 05-11-2025 13:22-0400 Body temperature 98.2 [degF] Micheline Schaefer OR NURSE MANAGER-C Work Phone: [facility] 05-11-2025 13:22-0400 Diastolic blood pressure 87 mm[Hg] Micheline Schaefer OR NURSE MANAGER-C Work Phone: [facility] 05-11-2025 13:22-0400 Heart rate 75 /min Micheline Schaefer OR NURSE MANAGER-C Work Phone: [facility] 05-11-2025 13:22-0400 Respiratory rate 16 /min Micheline Schaefer OR NURSE MANAGER-C Work Phone: [facility] 05-11-2025 13:22-0400 SaO2% (BldA) [Mass fraction] 97 % Micheline Schaefer OR NURSE MANAGER-C Work Phone: [facility] 05-11-2025 13:22-0400 Systolic blood pressure 133 mm[Hg] Micheline Heartmer OR NURSE MANAGER-C Work Phone: [facility] 05-09-2025 08:41-0400 Body height 160.02 cm Micheline Heartmer OR NURSE MANAGER-C Work Phone: [facility] 05-09-2025 08:41-0400 Body mass index (BMI) [Ratio] 35.3 kg/m2 Michelinegeoff Heartmer OR NURSE MANAGER-C Work Phone: [facility] 05-09-2025 08:41-0400 Body weight 90.5 kg Micheline Schaefer OR NURSE MANAGER-C Work Phone: [facility] 05-05-2025 11:37-0400 Body height 160.02 cm Micheline Schaefer OR NURSE MANAGER-C Work Phone: [facility] 05-05-2025 11:37-0400 Body mass index (BMI) [Ratio] 35.4 kg/m2 Michelinegeoff Heartmer OR NURSE MANAGER-C Work Phone: [facility] 05-05-2025 11:37-0400 Body weight 90.71 kg Michelinegeoff Heartmer OR NURSE MANAGER-C Work Phone: [facility] 05-05-2025 11:37-0400 Diastolic blood pressure 92 mm[Hg] Micheline Heartmer OR NURSE MANAGER-C Work Phone: [facility] 05-05-2025 11:37-0400 Systolic blood pressure 136 mm[Hg] Micheline Heartmer OR NURSE MANAGER-C Work Phone: [facility] 04-28-2025 13:08-0400 Body height 160.02 cm Micheline Schaefer OR NURSE MANAGER-C Work Phone: [facility] 04-28-2025 13:08-0400 Body mass index (BMI) [Ratio] 35.1 kg/m2 Micheline Silvano OR NURSE MANAGER-C Work Phone: [facility] 04-28-2025 13:08-0400 Body weight 89.86 kg Micheline [place] OR NURSE MANAGER-C Work Phone: [facility] 04-28-2025 13:08-0400 Diastolic blood pressure 90 mm[Hg] Micheline Silvano OR NURSE MANAGER-C Work Phone: [facility] 04-28-2025 13:08-0400 Systolic blood pressure 136 mm[Hg] Micheline Silvano OR NURSE MANAGER-C Work Phone: [facility] 04-21-2025 15:38-0400 Diastolic blood pressure 78 mm[Hg] Micheline [place] OR NURSE MANAGER-C Work Phone: [facility] 04-21-2025 15:38-0400 Heart rate 68 /min Michelinegeoff Heartmer OR NURSE MANAGER-C Work Phone: [facility] 04-21-2025 15:38-0400 Systolic blood pressure 127 mm[Hg] Micheline [place] OR NURSE MANAGER-C Work Phone: [facility] 04-21-2025 14:18-0400 Body temperature 98.6 [degF] Micheline Silvano OR NURSE MANAGER-C Work Phone: [facility] 04-21-2025 14:18-0400 Respiratory rate 16 /min Micheline [place] OR NURSE MANAGER-C Work Phone: [facility] 04-21-2025 14:15-0400 Body height 160.02 cm Micheline [place] OR NURSE MANAGER-C Work Phone: [facility] 04-21-2025 14:15-0400 Body mass index (BMI) [Ratio] 34.7 kg/m2 Micheline [place] OR NURSE MANAGER-C Work Phone: [facility] 04-21-2025 14:15-0400 Body weight 89 kg Michelinegeoff Heartmer OR NURSE MANAGER-C Work Phone: [facility] 04-21-2025 13:19-0400 Body height 162.56 cm Micheline Silvano OR NURSE MANAGER-C Work Phone: [facility] 04-21-2025 13:19-0400 Body mass index (BMI) [Ratio] 34 kg/m2 Micheline Silvano OR NURSE MANAGER-C Work Phone: [facility] 04-21-2025 13:19-0400 Body weight 89.81 kg Micheline Silvano OR NURSE MANAGER-C Work Phone: [facility] 04-21-2025 13:19-0400 Diastolic blood pressure 79 mm[Hg] Micheline [place] OR NURSE MANAGER-C Work Phone: [facility] 04-21-2025 13:19-0400 Heart rate 71 /min Micheline Silvano OR NURSE MANAGER-C Work Phone: [facility] 04-21-2025 13:19-0400 Systolic blood pressure 122 mm[Hg] Micheline Silvano OR NURSE MANAGER-C Work Phone: [facility] 04-14-2025 11:40-0400 Body height 162.56 cm Rachel Manny OR NURSE MANAGER-C Work Phone: [facility] 04-14-2025 11:40-0400 Body mass index (BMI) [Ratio] 34 kg/m2 Rachel Manny OR NURSE MANAGER-C Work Phone: [facility] 04-14-2025 11:40-0400 Body weight 89.92 kg Rachel Manny OR NURSE MANAGER-C Work Phone: [facility] 04-14-2025 11:40-0400 Diastolic blood pressure 87 mm[Hg] Rachel Manny OR NURSE MANAGER-C Work Phone: [facility] 04-14-2025 11:40-0400 Systolic blood pressure 132 mm[Hg] Rachel Manny OR NURSE MANAGER-C Work Phone: [facility] 04-08-2025 10:35-0400 Body height 162.56 cm Micheline Schaefer OR NURSE MANAGER-C Work Phone: [facility] 04-08-2025 10:35-0400 Body mass index (BMI) [Ratio] 33.9 kg/m2 Micheline [place] OR NURSE MANAGER-C Work Phone: [facility] 04-08-2025 10:35-0400 Body weight 89.58 kg Micheline Silvano OR NURSE MANAGER-C Work Phone: [facility] 04-08-2025 10:35-0400 Diastolic blood pressure 89 mm[Hg] Michleine [place] OR NURSE MANAGER-C Work Phone: [facility] 04-08-2025 10:35-0400 Systolic blood pressure 131 mm[Hg] Micheline [place] OR NURSE MANAGER-C Work Phone: [facility] 03-31-2025 11:46-0400 Diastolic blood pressure 94 mm[Hg] Micheline Silvano OR NURSE MANAGER-C Work Phone: [facility] 03-31-2025 11:46-0400 Systolic blood pressure 138 mm[Hg] Micheline [place] OR NURSE MANAGER-C Work Phone: [facility] 03-31-2025 11:12-0400 Body height 162.56 cm Micheline [place] OR NURSE MANAGER-C Work Phone: [facility] 03-31-2025 11:12-0400 Body mass index (BMI) [Ratio] 33.5 kg/m2 Micheline Silvano OR NURSE MANAGER-C Work Phone: [facility] 03-31-2025 11:12-0400 Body weight 88.5 kg Micheline Silvano OR NURSE MANAGER-C Work Phone: [facility] 03-28-2025 08:59-0400 Body height 162.56 cm Micheline [place] OR NURSE MANAGER-C Work Phone: [facility] 03-28-2025 08:59-0400 Body mass index (BMI) [Ratio] 33.3 kg/m2 Micheline [place] OR NURSE MANAGER-C Work Phone: [facility] 03-28-2025 08:59-0400 Body weight 88.05 kg Micheline Silvano OR NURSE MANAGER-C Work Phone: [facility] 03-28-2025 08:59-0400 Diastolic blood pressure 77 mm[Hg] Micheline [place] OR NURSE MANAGER-C Work Phone: [facility] 03-28-2025 08:59-0400 Systolic blood pressure 132 mm[Hg] Micheline [place] OR NURSE MANAGER-C Work Phone: [facility] 03-12-2025 11:48-0400 Body height 162.56 cm Micheline [place] OR NURSE MANAGER-C Work Phone: [facility] 03-12-2025 11:47-0400 Body mass index (BMI) [Ratio] 33.6 kg/m2 Micheline Silvano OR NURSE MANAGER-C Work Phone: [facility] 03-12-2025 11:47-0400 Body weight 88.96 kg Michelinegeoff Heartmer OR NURSE MANAGER-C Work Phone: [facility] 03-12-2025 11:47-0400 Diastolic blood pressure 84 mm[Hg] Micheline [place] OR NURSE MANAGER-C Work Phone: [facility] 03-12-2025 11:47-0400 Systolic blood pressure 138 mm[Hg] Micheline Heartmer OR NURSE MANAGER-C Work Phone: [facility] 02-24-2025 13:05-0400 Body mass index (BMI) [Ratio] 32.6 kg/m2 Michelinegeoff Heartmer OR NURSE MANAGER-C Work Phone: [facility] 02-24-2025 13:05-0400 Body weight 86.29 kg Micheline Silvano OR NURSE MANAGER-C Work Phone: [facility] 02-24-2025 13:05-0400 Diastolic blood pressure 77 mm[Hg] Micheline Silvano OR NURSE MANAGER-C Work Phone: [facility] 02-24-2025 13:05-0400 Systolic blood pressure 124 mm[Hg] Micheline Heartmer OR NURSE MANAGER-C Work Phone: [facility] 02-03-2025 13:36-0400 Body mass index (BMI) [Ratio] 32.8 kg/m2 Micheline Silvano OR NURSE MANAGER-C Work Phone: [facility] 02-03-2025 13:36-0400 Body weight 86.8 kg Micheline [place] OR NURSE MANAGER-C Work Phone: [facility] 02-03-2025 13:36-0400 Diastolic blood pressure 84 mm[Hg] Micheline Silvano OR NURSE MANAGER-C Work Phone: [facility] 02-03-2025 13:36-0400 Systolic blood pressure 126 mm[Hg] Micheline Silvano OR NURSE MANAGER-C Work Phone: [facility] 01-09-2025 11:30-0400 Body height 162.56 cm Micheline Silvano OR NURSE MANAGER-C Work Phone: [facility] 01-09-2025 11:29-0400 Body mass index (BMI) [Ratio] 32.8 kg/m2 Micheline [place] OR NURSE MANAGER-C Work Phone: [facility] 01-09-2025 11:29-0400 Body weight 86.63 kg Micheline Silvano OR NURSE MANAGER-C Work Phone: [facility] 01-09-2025 11:29-0400 Diastolic blood pressure 86 mm[Hg] Micheline Silvano OR NURSE MANAGER-C Work Phone: [facility] 01-09-2025 11:29-0400 Systolic blood pressure 135 mm[Hg] Micheline [place] OR NURSE MANAGER-C Work Phone: [facility] 12-12-2024 15:54-0500 Body height 162.56 cm Micheline [place] OR NURSE MANAGER-C Work Phone: [facility] 12-12-2024 15:52-0500 Body mass index (BMI) [Ratio] 32.1 kg/m2 Micheline Silvano OR NURSE MANAGER-C Work Phone: [facility] 12-12-2024 15:52-0500 Body weight 84.93 kg Micheline [place] OR NURSE MANAGER-C Work Phone: [facility] 12-12-2024 15:52-0500 Diastolic blood pressure 77 mm[Hg] Micheline [place] OR NURSE MANAGER-C Work Phone: [facility] 12-12-2024 15:52-0500 Systolic blood pressure 123 mm[Hg] Micheline Silvano OR NURSE MANAGER-C Work Phone: [facility] 11-19-2024 08:59-0500 Body mass index (BMI) [Ratio] 32.3 kg/m2 Micheline [place] OR NURSE MANAGER-C Work Phone: [facility] 11-19-2024 08:59-0500 Body weight 85.44 kg Micheline [place] OR NURSE MANAGER-C Work Phone: [facility] 11-19-2024 08:59-0500 Diastolic blood pressure 81 mm[Hg] Micheline Silvano OR NURSE MANAGER-C Work Phone: [facility] 11-19-2024 08:59-0500 Systolic blood pressure 126 mm[Hg] Micheline [place] OR NURSE MANAGER-C Work Phone: [facility] 11-13-2024 15:38-0500 Body mass index (BMI) [Ratio] 32.5 kg/m2 Micheline [place] OR NURSE MANAGER-C Work Phone: [facility] 11-13-2024 15:38-0500 Body weight 86.18 kg Micheline [place] OR NURSE MANAGER-C Work Phone: [facility] 11-13-2024 15:38-0500 Diastolic blood pressure 91 mm[Hg] Micheline [place] OR NURSE MANAGER-C Work Phone: [facility] 11-13-2024 15:38-0500 Systolic blood pressure 144 mm[Hg] Micheline Silvano OR NURSE MANAGER-C Work Phone: [facility] 11-06-2024 15:03-0500 Body mass index (BMI) [Ratio] 32.4 kg/m2 Micheline [place] OR NURSE MANAGER-C Work Phone: [facility] 11-06-2024 15:03-0500 Body weight 85.72 kg Micheline Silvano OR NURSE MANAGER-C Work Phone: [facility] 11-06-2024 15:03-0500 Diastolic blood pressure 94 mm[Hg] Micheline [place] OR NURSE MANAGER-C Work Phone: [facility] 11-06-2024 15:03-0500 Systolic blood pressure 141 mm[Hg] Micheline [place] OR NURSE MANAGER-C Work Phone: [facility] 10-25-2024 13:35-0500 Body mass index (BMI) [Ratio] 32.1 kg/m2 Micheline Silvano OR NURSE MANAGER-C Work Phone: [facility] 10-25-2024 13:35-0500 Body weight 85.04 kg Micheline Silvano OR NURSE MANAGER-C Work Phone: [facility] 10-25-2024 13:35-0500 Diastolic blood pressure 92 mm[Hg] Micheline Silvano OR NURSE MANAGER-C Work Phone: [facility] 10-25-2024 13:35-0500 Systolic blood pressure 142 mm[Hg] Micheline Silvano OR NURSE MANAGER-C Work Phone: [facility] 10-11-2024 14:25-0500 Body mass index (BMI) [Ratio] 32.1 kg/m2 Micheline [place] OR NURSE MANAGER-C Work Phone: [facility] 10-11-2024 14:25-0500 Body weight 84.82 kg Micheline Silvano OR NURSE MANAGER-C Work Phone: [facility] [facility] 10-11-2024 14:25-0500 Diastolic blood pressure 84 mm[Hg] Micheline [place] OR NURSE MANAGER-C Work Phone: [facility] 10-11-2024 14:25-0500 Systolic blood pressure 143 mm[Hg] Micheline Silvano OR NURSE MANAGER-C Work Phone: [facility] 04-17-2023 09:01-0400 Body height 168.91 cm Crista Slarb SENIOR DATA DEVELOPER [facility] Work Phone: 04-17-2023 09:01-0400 Body mass index (BMI) [Ratio] 28.62 kg/m2 Crista Slarb SENIOR DATA DEVELOPER [facility] Work Phone: 04-17-2023 09:01-0400 Body surface area Derived from formula 1.92 m2 Crista Slarb SENIOR DATA DEVELOPER [facility] Work Phone: 04-17-2023 09:01-0400 Body temperature 97.2 [degF] Crista Slarb SENIOR DATA DEVELOPER [facility] Work Phone: Comment on above: Method: Temporal 04-17-2023 09:01-0400 Body weight 81.65 kg Crista Slarb SENIOR DATA DEVELOPER [facility] Work Phone: 04-17-2023 09:01-0400 Diastolic blood pressure 72 mm[Hg] Crista Slarb SENIOR DATA DEVELOPER [facility] Work Phone: Comment on above: Patient Position: Sitting; Cuff Location : Left Arm; Cuff Size: Standard 04-17-2023 09:01-0400 Heart rate 84 /min Crista Slarb SENIOR DATA DEVELOPER [facility] Work Phone: Comment on above: Pattern: Regular 04-17-2023 09:01-0400 Respiratory rate 16 /min Crista Slarb SENIOR DATA DEVELOPER [facility] Work Phone: Comment on above: Pattern: Unlabored 04-17-2023 09:01-0400 SaO2% (BldA) [Mass fraction] 98 % Crisat Slarb SENIOR DATA DEVELOPER [facility] Work Phone: Comment on above: Room air 04-17-2023 09:01-0400 Systolic blood pressure 114 mm[Hg] Crista Slarb SENIOR DATA DEVELOPER [facility] Work Phone: Comment on above: Patient Position: Sitting; Cuff Location : Left Arm; Cuff Size: Standard 11-22-2022 09:27-0500 Body height 168.91 cm Crista Slarb SENIOR DATA DEVELOPER [facility] Work Phone: 11-22-2022 09:27-0500 Body mass index (BMI) [Ratio] 28.14 kg/m2 Crista Slarb SENIOR DATA DEVELOPER [facility] Work Phone: 11-22-2022 09:27-0500 Body surface area Derived from formula 1.91 m2 Crista Slarb SENIOR DATA DEVELOPER [facility] Work Phone: 11-22-2022 09:27-0500 Body temperature 96.6 [degF] Crista Slarb SENIOR DATA DEVELOPER [facility] Work Phone: Comment on above: Method: Temporal 11-22-2022 09:27-0500 Body weight 80.29 kg Crista Slarb SENIOR DATA DEVELOPER [facility] Work Phone: 11-22-2022 09:27-0500 Diastolic blood pressure 84 mm[Hg] Crista Slarb SENIOR DATA DEVELOPER [facility] Work Phone: Comment on above: Patient Position: Sitting; Cuff Location : Left Arm; Cuff Size: Standard 11-22-2022 09:27-0500 Heart rate 75 /min Crista Slarb SENIOR DATA DEVELOPER [facility] Work Phone: Comment on above: Pattern: Regular 11-22-2022 09:27-0500 Respiratory rate 17 /min Crista Slarb SENIOR DATA DEVELOPER [facility] Work Phone: Comment on above: Pattern: Unlabored 11-22-2022 09:27-0500 SaO2% (BldA) [Mass fraction] 99 % Crista Slarb SENIOR DATA DEVELOPER [facility] Work Phone: Comment on above: Room air 11-22-2022 09:27-0500 Systolic blood pressure 132 mm[Hg] Crista Slarb SENIOR DATA DEVELOPER [facility] Work Phone: Comment on above: Patient Position: Sitting; Cuff Location : Left Arm; Cuff Size: Standard 10-10-2022 08:29-0500 Body height 168.91 cm Trina Heaton MA [facility] Work Phone: 10-10-2022 08:29-0500 Body mass index (BMI) [Ratio] 28.68 kg/m2 Trina Heaton MA [facility]; [facility] Work Phone: 10-10-2022 08:29-0500 Body surface area Derived from formula 1.92 m2 Trina Heaton MA [facility] Work Phone: 10-10-2022 08:29-0500 Body temperature 96.2 [degF] Trina Heaton MA [facility] Work Phone: 10-10-2022 08:29-0500 Body weight 81.82 kg Trina Heaton MA [facility] Work Phone: 10-10-2022 08:29-0500 Diastolic blood pressure 98 mm[Hg] Trina Heaton MA [facility]; [facility] Work Phone: Comment on above: Patient Position: Sitting; Cuff Location : Left Arm; Cuff Size: Standard 10-10-2022 08:29-0500 Heart rate 78 /min Trina Heaton MA [facility]; [facility] Work Phone: Comment on above: Pattern: Regular 10-10-2022 08:29-0500 Respiratory rate 18 /min Trina Heaton MA [facility] Work Phone: Comment on above: Pattern: Unlabored 10-10-2022 08:29-0500 SaO2% (BldA) [Mass fraction] 99 % Trina Heaton MA [facility]; [facility] Work Phone: Comment on above: Room air 10-10-2022 08:29-0500 Systolic blood pressure 140 mm[Hg] Trina Heaton MA [facility]; [facility] Work Phone: Comment on above: Patient Position: Sitting; Cuff Location : Left Arm; Cuff Size: Standard 02-25-2022 09:26-0400 Body height 162.56 cm OR NURSE MANAGER-C Micheline Schaefer OR NURSE MANAGER Work Phone: [facility] Work Phone: 02-25-2022 09:26-0400 Body mass index (BMI) [Ratio] 31.4 kg/m2 OR NURSE MANAGER-C Micheline Schaefer OR NURSE MANAGER Work Phone: [facility] Work Phone: 02-25-2022 09:26-0400 Body weight 83 kg OR NURSE MANAGER-C Micheline Schaefer OR NURSE MANAGER Work Phone: [facility] Work Phone: 02-25-2022 09:26-0400 Diastolic blood pressure 88 mm[Hg] OR NURSE MANAGER-C Micheline Schaefer OR NURSE MANAGER Work Phone: [facility] Work Phone: 02-25-2022 09:26-0400 Systolic blood pressure 122 mm[Hg] OR NURSE MANAGER-C Micheline Schaefer OR NURSE MANAGER Work Phone: [facility] Work Phone: 12-20-2021 13:36-0500 Body mass index (BMI) [Ratio] 31.6 kg/m2 OR NURSE MANAGER-C Micheline Schaefer OR NURSE MANAGER Work Phone: [facility] Work Phone: 12-20-2021 13:36-0500 Body weight 83.46 kg OR NURSE MANAGER-C Micheline Schaefer OR NURSE MANAGER Work Phone: [facility] Work Phone: 10-12-2021 10:07-0500 Body height 168.91 cm Crista Marquez LPN [facility] Work Phone: Comment on above: pt reported 10-12-2021 10:07-0500 Body mass index (BMI) [Ratio] 31 kg/m2 Crista Slarb SENIOR DATA DEVELOPER [facility]; [facility] Work Phone: Comment on above: pt reported 10-12-2021 10:07-0500 Body surface area Derived from formula 1.99 m2 Crista Marquez LPN [facility]; [facility] Work Phone: Comment on above: pt reported 10-12-2021 10:07-0500 Body weight 88.45 kg Crista Marquez SENIOR DATA DEVELOPER [facility]; [facility] Work Phone: Comment on above: pt reported 10-12-2021 10:07-0500 Diastolic blood pressure 98 mm[Hg] Crista Marquez SENIOR DATA DEVELOPER [facility]; [facility] Work Phone: Comment on above: Patient Position: Sitting; Cuff Location : Left Arm; Cuff Size: Standard pt reported 10-12-2021 10:07-0500 Heart rate 70 /min Crista Marquez SENIOR DATA DEVELOPER [facility]; [facility] Work Phone: Comment on above: Pattern: Regular pt reported 10-12-2021 10:07-0500 Systolic blood pressure 144 mm[Hg] Crista Marquez LPN [facility]; [facility] Work Phone: Comment on above: Patient Position: Sitting; Cuff Location : Left Arm; Cuff Size: Standard pt reported 09-28-2021 14:01-0500 Body height 168.91 cm Marleen Bynum CNP Work Phone: [facility] Work Phone: 09-28-2021 14:01-0500 Body mass index (BMI) [Ratio] 31 kg/m2 Marleen Bynum CNP Work Phone: [facility] Work Phone: 09-28-2021 14:01-0500 Body surface area Derived from formula 1.99 m2 Marleen Bynum CNP Work Phone: [facility] Work Phone: 09-28-2021 14:01-0500 Body temperature 97.1 [degF] Marleen Ciesa SENIOR DATA DEVELOPER Work Phone: [facility]; [facility] Work Phone: Comment on above: Method: Axillary 09-28-2021 14:01-0500 Body weight 88.45 kg Marleen Bynum CNP Work Phone: [facility] Work Phone: 09-28-2021 14:01-0500 Diastolic blood pressure 100 mm[Hg] Marleen Bynum SENIOR DATA DEVELOPER Work Phone: [facility]; [facility] Work Phone: Comment on above: Patient Position: Sitting; Cuff Location : Left Arm; Cuff Size: Standard 09-28-2021 14:01-0500 Heart rate 92 /min Marleen Bynum CNP Work Phone: [facility]; [facility] Work Phone: Comment on above: Pattern: Regular 09-28-2021 14:01-0500 Respiratory rate 16 /min Marleen Bynum CNP Work Phone: [facility]; [facility] Work Phone: Comment on above: Pattern: Unlabored 09-28-2021 14:01-0500 SaO2% (BldA) [Mass fraction] 97 % Marleen Bynum SENIOR DATA DEVELOPER Work Phone: [facility]; [facility] Work Phone: Comment on above: Room air 09-28-2021 14:01-0500 Systolic blood pressure 140 mm[Hg] Marleen Bynum SENIOR DATA DEVELOPER Work Phone: [facility]; [facility] Work Phone: Comment on above: Patient Position: Sitting; Cuff Location : Left Arm; Cuff Size: Standard Encounters Encounter Date Encounter Type Care Provider Facility Start: 08-28-2025 End: 08-28-2025 ambulatory [place] [place]: 07-17-2025 End: 07-17-2025 Patient encounter procedure Joyce Bolanos [facility] Work Phone: Start: 07-17-2025 End: 07-17-2025 ambulatory Rachel Bryant OR NURSE MANAGER-C Work Phone: [facility] Start: 06-19-2025 End: 06-19-2025 Patient encounter procedure Joyce Bolanos CNM -[facility] Work Phone: Start: 06-19-2025 End: 06-19-2025 ambulatory Rachel Bryant OR NURSE MANAGER-C Work Phone: [facility] Start: 05-20-2025 End: 05-20-[address] Tiffanie Lepe DO -[facility] Work Phone: Start: 05-20-2025 End: 05-20-2025 ambulatory Micheline Schaefer OR NURSE MANAGER-C Work Phone: [facility] Start: 05-12-2025 ambulatory Rachel Bryant Facility [place] [place] Start: 05-11-2025 Non-patient / Non-visit Narcisa Luciano CNM -[facility] Start: 05-10-2025 Non-patient / Non-visit Dr. Abby Carreon MD -[facility] Start: 05-09-2025 Non-patient / Non-visit Dr. Abby Carreon MD -[facility] Start: 05-09-2025 ambulatory Abby Klein lity:[facility] [place] Start: 05-09-2025 End: 05-11-2025 Evaluation and management of inpatient Dr. Abby Carreon MD -[facility] Work Phone: Start: 05-05-2025 End: 05-05-[address] Tiffanie Lepe DO -[facility] Work Phone: Start: 05-05-2025 End: 05-05-2025 ambulatory Micheline Schaefer OR NURSE MANAGER-C Work Phone: [facility] Start: 05-05-2025 End: 05-05-[address] Abby Carreon MD -[facility] Work Phone: Start: 05-05-2025 End: 05-05-2025 ambulatory Tiffanie Lepe Facility:[facility] Start: 04-29-2025 End: 04-29-2025 ambulatory Micheline Schaefer OR NURSE MANAGER-C Work Phone: -Ultrasound [facility] Start: 04-29-2025 End: 04-29-2025 Patient encounter procedure Antony Correa OR NURSE MANAGER-C -Ultrasound [facility] Work Phone: Start: 04-28-2025 End: 04-28-2025 ambulatory Micheline Schaefer OR NURSE MANAGER-C Work Phone: -[facility] Start: 04-28-2025 End: 04-28-2025 Patient encounter procedure Joyce STANLEYM -[facility] Work Phone: Start: 04-28-2025 End: 04-28-2025 Patient encounter procedure Joyce STANLEY -[facility] Work Phone: Start: 04-28-2025 End: 04-29-2025 ambulatory Micheline Schaefer OR NURSE MANAGER-C Work Phone: -[facility] Start: 04-28-2025 End: 04-28-2025 ambulatory Joyce Bolanos Facility:[facility] Start: 04-21-2025 ambulatory Joyce Bolanos [place] [place] Start: 04-21-2025 Non-patient / Non-visit Joyce Bolanos CNM -[facility] Start: 04-21-2025 End: 04-21-2025 Patient encounter procedure Joyce STANLEYM -[facility] Work Phone: Start: 04-21-2025 End: 04-21-2025 ambulatory Micheline Schaefer OR NURSE MANAGER-C Work Phone: -[facility] Start: 04-14-2025 End: 04-14-[address] Tiffanie eLpe -[facility] Work Phone: Start: 04-14-2025 End: 04-14-2025 ambulatory Rachel Bryant OR NURSE MANAGER-C Work Phone: [facility] Work Phone: Start: 04-11-2025 End: 04-11-2025 ambulatory ANANTHMARIJA BERRYNilam [facility] Start: 04-08-2025 End: 04-08-[address] Abby Carreon MD Work Phone: [facility] Work Phone: Start: 04-08-2025 End: 04-08-[address] Tiffanie Lepe DO -[facility] Work Phone: Start: 04-08-2025 End: 04-08-[address] Tiffanie Lepe DO -[facility] Work Phone: Start: 04-08-2025 End: 04-08-2025 ambulatory Micheline Schaefer OR NURSE MANAGER-C Work Phone: [facility] Work Phone: Start: 04-08-2025 End: 04-08-2025 ambulatory Rachel Bryant Facility:[facility] Start: 03-31-2025 End: 03-31-2025 Patient encounter procedure Antony Correa OR NURSE MANAGER-C -[facility] Work Phone: Start: 03-31-2025 End: 03-31-2025 ambulatory Micheline Schaefer OR NURSE MANAGER-C Work Phone: [facility] Work Phone: Start: 03-28-2025 End: 03-28-2025 ambulatory Micheline Schaefer OR NURSE MANAGER-C Work Phone: [facility] Work Phone: Start: 03-28-2025 End: 03-28-2025 Patient encounter procedure Joyce Bolanos CNM -[facility] Work Phone: Start: 03-28-2025 End: 03-28-2025 ambulatory Rachel Bryant Facility:[facility] Start: 03-24-2025 ambulatory Rachel Bryant Facility [place] [place] Start: 03-12-2025 End: 03-12-[address] Tiffanie Lepe DO -[facility] Work Phone: Start: 03-12-2025 End: 03-12-2025 ambulatory Micheline Schaefer OR NURSE MANAGER-C Work Phone: [facility] Work Phone: Start: 02-24-2025 End: 02-24-2025 Patient encounter procedure Antony Correa OR NURSE MANAGER-C -[facility] Work Phone: Start: 02-24-2025 End: 02-24-2025 ambulatory Micheline Schaefer OR NURSE MANAGER-C Work Phone: [facility] Work Phone: Start: 02-24-2025 End: 02-24-2025 ambulatory Rachel [place] Facility:[facility] Start: 02-03-2025 End: 02-03-2025 Patient encounter procedure Joyce Bolanos CNM -[facility] Work Phone: Start: 02-03-2025 End: 02-03-2025 ambulatory Rachel Bryant Facility[place] [place] Start: 01-09-2025 End: 01-09-[address] Tiffanie Lepe DO -[facility] Work Phone: Start: 01-09-2025 End: 01-09-2025 ambulatory Micheline Schaefer OR NURSE MANAGER-C Work Phone: [facility] Work Phone: Start: 01-09-2025 End: 01-09-2025 ambulatory Rachel Manny Facility:[facility] Start: 12-23-2024 End: 12-23-2024 [facility] Start: 12-19-2024 End: 12-19-2024 ambulatory Micheline Schaefer OR NURSE MANAGER-C Work Phone: [facility] Work Phone: Start: 12-19-2024 End: 12-19-[address] Abby Carreon MD -Lab, [facility] Start: 12-19-2024 End: 12-19-2024 ambulatory Abby Carreon Facility:[facility] Start: 12-14-2024 End: 12-14-[address] Abby Carreon MD -Ultrasound, [facility] Work Phone: Start: 12-14-2024 End: 12-14-2024 ambulatory Abby Carreon Facility:[facility] Start: 12-13-2024 End: 12-13-[address] Abby Carreon MD -Laboratory Work Phone: Start: 12-12-2024 End: 12-12-[address] Abby Carreon MD -[facility] Work Phone: Start: 12-12-2024 End: 12-13-2024 ambulatory Abby Carreon Facility:[facility] Start: 12-12-2024 End: 12-12-2024 ambulatory Micheline Schaefer NP Facility:[facility] Start: 11-19-2024 End: 11-19-2024 Patient encounter procedure Antony Correa OR NURSE MANAGER-C -[facility] Work Phone: Start: 11-19-2024 End: 11-19-2024 ambulatory Antony Correa OR NURSE MANAGER Facility:[facility] Start: 11-13-2024 End: 11-13-2024 Patient encounter procedure Antony [place] OR NURSE MANAGER-C -[facility] Work Phone: Start: 11-13-2024 End: 11-13-2024 ambulatory Antony Dunbars OR NURSE MANAGER Facility:[facility] Start: 11-13-2024 Registered [facility] Work Phone: Start: 11-13-2024 ambulatory Micheline Schaefer OR NURSE MANAGER Facil ity:[facility] Start: 11-13-2024 End: 11-13-2024 ambulatory Antony Correa OR NURSE MANAGER Facility:[facility] Start: 11-06-2024 End: 11-06-[address] Tiffanie Lepe DO -[facility] Work Phone: Start: 11-06-2024 End: 11-06-2024 ambulatory Micheline Schaefer OR NURSE MANAGER Facility:[facility] Start: 10-25-2024 End: 10-25-[address] Abby Carreon MD -[facility] Work Phone: Start: 10-25-2024 End: 10-25-2024 ambulatory Micheline Schaefer OR NURSE MANAGER Facility:[facility] Start: 10-25-2024 End: 10-25-2024 ambulatory Micheline Schaefer OR NURSE MANAGER Facility:[facility] Start: 10-18-2024 ambulatory Antony Correa OR NURSE MANAGER [place]il [place] [place] Start: 10-11-2024 End: 10-11-2024 Patient encounter procedure Sahara Frances CNM -Laboratory, Specimen Work Phone: Start: 10-11-2024 End: 10-11-2024 Patient encounter procedure Sahara Frances CNM -[facility] Work Phone: Start: 10-11-2024 End: 10-11-2024 ambulatory Saharajam Frances [place] [place] Start: 10-11-2024 End: 10-11-2024 ambulatory Saharajam Frances Facility:[facility] Start: 10-01-2024 End: 10-01-2024 Patient encounter procedure Joyce Bolanos CNM -Lab, [facility] Start: 10-01-2024 End: 10-01-2024 ambulatory Joyce Bolanos Facility:[facility] Start: 04-17-2023 End: 04-17-2023 Office outpatient visit 15 minutes Rachel Bryant CNP Work Phone: [facility] Start: 02-15-2023 ambulatory Marleen Brashergorge Compreh [facility] Start: 11-22-2022 Review Marleen Morrowtaylor Comprehens [facility] Start: 11-22-2022 End: 11-22-2022 Office outpatient visit 15 minutes Marleen Bynum [facility] Start: 11-22-2022 Review Marleen Morrowa Comprehens [facility] Start: 10-10-2022 End: 10-14-2022 Office outpatient visit 25 minutes Marleen Morrowtaylor [facility] Start: 10-10-2022 Review Marleen Brashergorge Yovani lopez [facility] Start: 07-12-2022 End: 07-12-2022 ambulatory KIT KAUR MD Facility:[facility] Start: 07-11-2022 End: 07-12-2022 Emergency department patient visit ISAURO PALMER Facility:[facility] Start: 03-16-2022 End: 03-16-2022 Patient encounter procedure OR NURSE MANAGER-C Micheline Schaefer OR NURSE MANAGER [facility] Start: 02-26-2022 End: 02-26-2022 Patient encounter procedure OR NURSE MANAGER-C Micheline Schaefer OR NURSE MANAGER [facility] Start: 02-25-2022 End: 02-25-2022 Patient encounter procedure OR NURSE MANAGER-C Micheline Schaefer OR NURSE MANAGER Work Phone: [facility] Start: 12-20-2021 End: 12-20-2021 Patient encounter procedure OR NURSE MANAGER-C Micheline Schaefer OR NURSE MANAGER Work Phone: [facility] Start: 12-17-2021 End: 12-17-2021 Patient encounter procedure OR NURSE MANAGER-C Micheline Schaefer OR NURSE MANAGER Work Phone: [facility] Start: 10-12-2021 End: 10-12-2021 Office outpatient visit 15 minutes Marleen Bynum SENIOR DATA DEVELOPER Work Phone: [facility] Start: 09-28-2021 End: 09-28-2021 Office outpatient new 30 minutes Marleen Bynum SENIOR DATA DEVELOPER Work Phone: [facility] Start: 09-28-2021 End: 09-28-2021 Patient encounter status Marleen Bynum Work Phone: [facility] Patient encounter status Crista Marquez LPN [facility] Work Phone: Comment on above: NEW PATIENT PHYSICAL Patient encounter status Trina Heaton MA [facility]; [facility] Work Phone: Comment on above: NEW PATIENT PHYSICAL Patient encounter status Crista Marquez LPN [facility]; [facility] Work Phone: Comment on above: NEW PATIENT PHYSICAL Patient encounter status Crista Marquez LPN [facility]; [facility] Work Phone: Comment on above: NEW PATIENT PHYSICAL Procedures Date Procedure Procedure Detail Performing Clinician Start: 05-10-2025 Estimated creatinine clearance Micheline Schaefer OR NURSE MANAGER-C Work Phone: Start: 05-09-2025 Serologic test for syphilis Micheline Schaefer OR NURSE MANAGER-C Work Phone: Start: 04-29-2025 Ultrasound scan for growth Micheline Schaefer OR NURSE MANAGER-C Work Phone: Start: 04-28-2025 Beta-hemolytic Streptococcus culture Micheline Schaefer OR NURSE MANAGER-C Work Phone: Start: 04-21-2025 Ultrasonography for biophysical profile without non-stress testing Micheline Schaefer OR NURSE MANAGER-C Work Phone: Start: 04-08-2025 Gram stain microscopy D josef Carreon MD Work Phone: Start: 04-08-[address] Abby Carreon MD Work Phone: Start: 03-28-2025 Ultrasound scan for growth Micheline Schaefer OR NURSE MANAGER-C Work Phone: Start: 02-24-2025 Serologic test for syphilis Micheline Schaefer OR NURSE MANAGER-C Work Phone: Start: 12-14-2024 Ultrasonography of abdomen Micheline Schaefer OR NURSE MANAGER-C Work Phone: Start: 12-13-2024 MICHAEL measurement Micheline Schaefer OR NURSE MANAGER-C Work Phone: Comment on above: Negative <1:80 Borde rline 1:80 Positive >1:80ICAP nomenclature: AC-0For more information about Hep-2 cell patterns useANApatterns.org, the official website for theInternational Consensus on Antinuclear Antibody (MICHAEL)Patterns (ICAP).Performed at: - [facility] [id number] Director: Nathan Thakur PhD, Phone: [phone] Start: 12-13-2024 Geoff-Noonan virus c apsid IgG measurement Micheline Heartmer OR NURSE MANAGER-C Work Phone: Comment on above: Negative <18.0 Equiv ocal 18.0 - 21.9 Positive >21.9 Start: 12-13-2024 Geoff-Noonan virus serologic test Micheline Heartmer OR NURSE MANAGER-C Work Phone: Comment on above: EBV Interpretation C hartKey: Antibody Present + Antibody Absent -Interpretation VCA-IgM VCA-IgG EBNA-IgGNo previous infection/ - - -SusceptiblePrimary infection (new + + -or recent)Past Infection +or- + +See comment below* + - -*Results indicate infection with EBV at some time however cannot predict the timing of the infection since antibodies to EBNA usually develop after primary infection or, alternatively, approximately 5-10% of patients with EBV never develop antibodies to EBNA. Start: 12-13-2024 Immunoglobulin G subclass, G4 measurement Micheline Heartmer OR NURSE MANAGER-C Work Phone: Start: 12-13-2024 Measurement of renal function Micheline Schaefer OR NURSE MANAGER-C Work Phone: Comment on above: GFR Calc Start: 12-12-2024 Measurement of renal function Micheline Silvano OR NURSE MANAGER-C Work Phone: Comment on above: GFR Calc Start: 11-13-2024 Procedure Michelineerika hardwick OR NURSE MANAGER-C Work Phone: Start: 11-13-2024 Measurement of renal function Micheline Heartmer OR NURSE MANAGER-C Work Phone: Comment on above: GFR Calc Start: 10-11-2024 Urine culture Michelineerika mireles OR NURSE MANAGER-C Work Phone: Start: 02-01-2023 End: 02-01-2023 Renal Artery Duplex Ultrasound Procedure Note: See Note; NOTES: [facility] [address] [place] [address] Renal Artery Duplex Ultrasound 02/01/23 0851 MR#: [id number] Acct: [id number] Name: MICHELINE SABA Rep #: [id number] : 1995 27 From: Erin Dugan MD Attending Dr: DAI Bledsoe Status: REG CLI Ordering Dr: Rachel Bryant OR NURSE MANAGER-C Date: 02/01/23 Location: [facility] Sex: F C Admitted: Reason For Study: Hypertension Right Renal Artery Left Renal Artery Right renal artery ostium Left renal artery ostium 69.2/32.1 128.5/43.0 RSV/EDV. PSV/EDV. Right renal artery proximal Left renal artery proximal PSV/EDV 86.2/31.9 PSV/EDV. 76.5/29.9 . Right renal artery mid 78.5/30.4 Left renal artery mid 95.0/35.7 PSV/EDV. PSV/EDV . Right renal artery distal 83.1/36.6 Left renal artery distal 112.5/48.9 PSV/EDV. PSV/EDV. Right Renal Parenchyma Left Renal Parenchyma Upper Pole Medula 37.2/18.5 Left upper pole medulla 43.7/17.4 PSV/EDV. PSV/EDV . Right upper pole medulla EDR 0.50 . Left upper pole medulla EDR 0.40 . Right upper pole medulla R.I. Left upper pole medulla R.I. 0.60 . 0.50 . UP Cortex 18.1/8.7 PSV/EDV. Upper Alek Cortx 24.0/13.1 PSV/EDV. Left upper pole cortex EDR 0.50 . Right upper pole cortex EDR 0.50 . Left upper pole cortex R.I. 0.52 . Right upper pole cortex R.I. 0.46 . Left lower Pole medulla 20.8/9.8 Right lower Pole medulla 36.1/17.4 PSV/EDV . PSV/EDV . Left lower pole medulla EDR 0.50 . Right lower pole medulla EDR 0.50 . Left lower pole medulla R.I. 0.53 . Right lower pole medulla R.I. Lower Pole Cortx 19.2/9.3 PSV/EDV. 0.52 . Left lower pole cortex EDR 0.50 . Lower Pole Cortex 19.6/8.7 PSV/EDV. Left lower pole cortex R.I. 0.50 . Right lower pole cortex EDR 0.40 . Left Renal Hilar Right lower pole cortex R.I. 0.56 . LT Hilar avg 102.9/50.2 PSV/EDV . Right Renal Hilar Left hilar acceleration time 20 Right Hilar avg 95.8/34.7 PSV/EDV. m/sec. Right hilar acceleration time 20 Left Renal Dimensions m/sec. Left kidney size 11.40 cm . Right Renal Dimensions Left cortical dimension 1.02 cm . Right kidney size 12.95 cm . Right cortical dimension 1.09 cm . Aorta Proximal abdominal aorta 1.6 cm . Proximal abdominal aorta peak systolic velocity is 126.4 cm/sec . Distal abdominal aorta 1.2 cm . Distal abdominal aorta peak systolic velocity is 130.7 cm/sec . VL/Renal Artery Duplex Ultrasound Interpretation Summary Maximal diameter of the abdominal aorta is 1.6 cm which is normal. Peak systolic velocity elevated distally at 130 cm second peak systolic flow. Increased aortic velocities invalidate renal artery to aortic ratios. Less than 60% stenosis bilateral renal arteries Maintained right renal length of 12.95 cm Maintained left renal length of 11.4 cm Ordering Physician: Micheline Wallis Referring Physician: Rachel Bryant Performed By: Luke Blunt RVT 02/01/23 1102 Date Erin Dugan MD CC: DAI Bryant; DAI Schaefer Date Dictated: 02/01/23 0851 Date Transcribed: 02/01/23 1102 Manager Research And Development: Signed Rachel Bryant CNP Work Phone: Start: 07-07-2022 End: 07-07-2022 Appendectomy Rachel Bryant CNP Work Phone: Health Maintenance Crista Bingham arb SENIOR DATA DEVELOPER Comment on above: Eye exam 07/13Pelvic/ pap 2/- Dr. Carreon [facility] Comment on above: Eye exam 07/13Pelvic/ pap 2/- Dr. Carreon [facility] Crista Bingham arb SENIOR DATA DEVELOPER Comment on above: Eye exam 07/13Pelvic/ pap 2- Dr. Carreon [facility] Crista Bingham arb SENIOR DATA DEVELOPER Comment on above: Eye exam 07/13Pelvic/ pap 2- Dr. Carreon Plan of Treatment Date Care Activity Detail Author Start: 05-11-2025 Patient discharge [facility] Start: 05-10-2025 Documentation procedure [facility] Start: 05-10-2025 [facility] Start: 05-09-2025 Administration of medication [facility] Start: 05-09-2025 Application of ice collar, cap or bag [facility] Start: 05-09-2025 Catheterization of vein [facility] Start: 05-09-2025 Introduction of urinary catheter [facility] Start: 05-09-2025 Measuring intake and output [facility] Start: 05-09-2025 Notification of physician [facility] Start: 05-09-2025 Procedure discontinued [facility] Start: 05-09-2025 Provision of activity privileges [facility] Start: 05-09-2025 Vital signs measurements [facility] Start: 05-09-2025 End: 05-09-2025 [facility] Start: 05-09-2025 Documentation procedure [facility] Start: 05-09-2025 Admission procedure [facility] Start: 05-09-2025 Consultation [facility] Start: 04-21-2025 Nonstress test [facility] Start: 04-21-2025 Biophysical profile panel US [facility] Start: 04-21-2025 Ultrasonography for biophysical profile without non-stress testing OB Biophysical Prof W/O NST [facility] Start: 04-21-2025 Obstetric monitoring [facility] Start: 04-21-2025 [facility] Start: 04-21-2025 Vital signs measurements [facility] Start: 04-21-2025 Patient discharge [facility] Start: 03-28-2025 Ultrasound scan for growth [facility] Start: 04-17-2023 Assay of thyroid stimulating hormone tsh TSH (THYROID STIMULATING HORMONE) (30821) [facility] Work Phone: Start: 04-17-2023 Comprehensive metabolic panel METABOLIC PANEL, COMPREHENSIVE (13231) [facility] Work Phone: Start: 04-17-2023 Creatinine other source MICROALB;CREAT RATION, RAND UR (22803) [facility] Work Phone: Start: 04-17-2023 Lipid panel LIPID PANEL (34551) [facility] Work Phone: Start: 04-17-2023 Procedure Education Eprescribed prescriptions (G8553) [facility] Work Phone: Start: 04-17-2023 Provider Instructions for Treatment Follow up in 6 months [facility] Work Phone: Start: 04-17-2023 Urinalysis qual/semiquant except immunoassays URINALYSIS (46100) [facility] Work Phone: Start: 11-22-2022 Procedure Education Eprescribed prescriptions (G8553) [facility] Work Phone: Start: 11-22-2022 Provider Instructions for Treatment [facility] Work Phone: Start: 10-10-2022 Assay of free thyroxine T4, FREE (THYROXINE) (75072) [facility] Work Phone: Start: 10-10-2022 Assay of magnesium MAGNESIUM (96335) [facility] Work Phone: Start: 10-10-2022 Assay of phosphorus inorganic PHOSPHORUS (84508) [facility] Work Phone: Start: 10-10-2022 Assay of thyroid stimulating hormone tsh TSH (THYROID STIMULATING HORMONE) (61170) [facility] Work Phone: Start: 10-10-2022 Blood count complete auto&auto difrntl wbc CBC with auto diff (26244) [facility] Work Phone: Start: 10-10-2022 Comprehensive metabolic panel METABOLIC PANEL, COMPREHENSIVE (77415) [facility] Work Phone: Start: 10-10-2022 Creatinine other source MICROALB;CREAT RATION, RAND UR (20535) [facility]; [facility] Work Phone: Start: 10-10-2022 Lipid panel LIPID PANEL (62006) [facility] Work Phone: Start: 10-10-2022 Procedure Education Eprescribed prescriptions (G8553) [facility] Work Phone: Start: 10-10-2022 Provider Instructions for Treatment [facility] Work Phone: Start: 10-10-2022 Urnls dip stick/tablet reagent auto microscopy URINALYSIS, W/ MICRO (15731) [facility] Work Phone: Start: 10-12-2021 Procedure Education Eprescribed prescriptions (G8553) [facility] Work Phone: Start: 10-12-2021 Provider Instructions for Treatment Follow up in 3 months credit front office developer to arrange [facility] Work Phone: Start: 09-28-2021 Provider Instructions for Treatment Follow up in 2 weeks virtual [facility] Work Phone: CBC W Auto Different ial panel - Blood [facility] Comprehensive metabo lic 2000 panel - Serum or Plasma [facility] Biophysical pr ofile panel US [facility] Patient Education Kick Counts ED False Labor OB Triage: Return to Hospital or Notify Physician if you Experience: [facility] Work Phone: Protein/Creatinine [Ratio] in Urine [facility] Protein/Creatinine [Ratio] in Urine [facility] Streptococcus agalac tiae [Presence] in Unspecified specimen by Organism specific culture [facility] T4 free measurement [facility] Thyroid stimulating hormone measurement [facility] Ultrasound scan for growth [facility] Work Phone: [facility] Work Phone: [facility] Immunizations Immunization Date Immunization Notes Care Provider Fa cility 08-20-2019 tetanus toxoid, redu sami diphtheria toxoid, and acellular pertussis vaccine, adsorbed OR NURSE MANAGER-C Micheline Schaefer OR NURSE MANAGER Work Phone: [facility] 08-20-2019 diphtheria, tetanus toxoids and acellular pertussis vaccine, unspecified formulation OR NURSE MANAGER-C Micheline Schaefer OR NURSE MANAGER Work Phone: [facility] Work Phone: 07-30-2019 Flucelvax Quad 5099-2850 (PF) (flu vac qs 2019(4 yr up)CD(PF)) 60 mcg (15 mcg x OR NURSE MANAGER-C Micheline Schaefer OR NURSE MANAGER Work Phone: [facility] Work Phone: 03-10-2019 tetanus toxoid, redu sami diphtheria toxoid, and acellular pertussis vaccine, adsorbed OR NURSE MANAGER-C Micheline Schaefer OR NURSE MANAGER Work Phone: [facility] Payers Date Payer Category Payer Unknown [id number] 2024 Self-pay [id number] 2022 Unknown [id number] 2022 Unknown [id number] 2017 Unknown SELF PAY INSURANCE [id number] 1993 Unknown [id number] 2.16.8 40.1.943547.3.579.2.627 1993 Unknown [id number] 2.16.8 40.1.280821.3.579.2.627 1993 Unknown [id number] 2.16.84 0.1.586763.3.579.2.716 1993 Unknown [id number] 2.16. 840.1.934397.3.579.2.479 1993 Unknown [id number] 2.16. 840.1.571190.3.579.2.479 1993 Unknown [id number] 2.16. 840.1.474449.3.579.2.479 Unknown [id number] SELF PAY INSURANCE [id number] Unknown [place] [employer]/BS Unknown [id number] 2.16.8 40.1.246400.3.579.2.462 Unknown [id number] 2.16.8 40.1.327274.3.579.2.462 Unknown [id number] 2.16.8 40.1.895358.3.579.2.462 Unknown [id number] 2.16.8 40.1.966377.3.579.2.462 Unknown [id number] 2.16.8 40.1.292069.3.579.2.462 Unknown [id number] 2.16.8 40.1.401538.3.579.2.462 Unknown [id number] 2.16.8 40.1.151855.3.579.2.462 Unknown [id number] 2.16.8 40.1.221281.3.579.2.462 Unknown [id number] 2.16.8 40.1.294636.3.579.2.462 Unknown [id number] 2.16.8 40.1.977903.3.579.2.462 Unknown [id number] 2.16.8 40.1.273094.3.579.2.462 Unknown [id number] 2.16.8 40.1.109388.3.579.2.462 Unknown [id number] 2.16.8 40.1.465427.3.579.2.462 Unknown [id number] 2.16.8 40.1.969881.3.579.2.462 Unknown [id number] 2.16.8 40.1.556039.3.579.2.462 Unknown [id number] 2.16.8 40.1.848723.3.579.2.462 Unknown [id number] 2.16.8 40.1.609923.3.579.2.462 Unknown [id number] 2.16.8 40.1.133369.3.579.2.462 Unknown [id number] 2.16.8 40.1.757074.3.579.2.462 Unknown [id number] 2.16.8 40.1.650181.3.579.2.462 Unknown [id number] 2.16.8 40.1.287185.3.579.2.462 Unknown [id number] 2.16.8 40.1.766601.3.579.2.462 Unknown [id number] 2.16.8 40.1.306873.3.579.2.462 Unknown [id number] 2.16.8 40.1.713490.3.579.2.462 Unknown [id number] 2.16.8 40.1.680855.3.579.2.462 Unknown [id number] 2.16.8 40.1.906279.3.579.2.462 Unknown [id number] 2.16.8 40.1.025965.3.579.2.462 Unknown [id number] 2.16.8 40.1.722543.3.579.2.462 Unknown [id number] 2.16.8 40.1.034847.3.579.2.462 Unknown [id number] 2.16.8 40.1.109262.3.579.2.462 Unknown [id number] 2.16.8 40.1.141267.3.579.2.462 Unknown [id number] 2.16.8 40.1.152950.3.579.2.462 Unknown [id number] 2.16.8 40.1.771541.3.579.2.462 Unknown [id number] 2.16.8 40.1.404562.3.579.2.462 Unknown [id number] 2.16.8 40.1.745589.3.579.2.462 Unknown [id number] 2.16.8 40.1.952219.3.579.2.462 Unknown [id number] 2.16.8 40.1.907010.3.579.2.462 Unknown [id number] 2.16.8 40.1.451250.3.579.2.462 Unknown [id number] 2.16.8 40.1.288539.3.579.2.462 Unknown [id number] 2.16.8 40.1.942900.3.579.2.462 Unknown [id number] 2.16.8 40.1.444959.3.579.2.462 Unknown [id number] 2.16.8 40.1.801225.3.579.2.462 Unknown [id number] 2.16.8 40.1.223347.3.579.2.462 Unknown [id number] 2.16.8 40.1.618718.3.579.2.462 Unknown [id number] 2.16.8 40.1.874173.3.579.2.462 Unknown [id number] 2.16.8 40.1.938822.3.579.2.462 Social History Date Type Detail Facility Alcohol Use: Alcohol Use: [facility] Work Phone: Exercise History: Exercise History: [facility] Work Phone: Living Situation: Living Situation: [facility] Work Phone: Comment on above: lives with spouse, f ather and 2 children No Drug Use No Drug Use [facility] Work Phone: Start: 12-20-2021 Tobacco smoking status AZIS Unknown if ever smoked [facility] Work Phone: Start: 1995 Sex Assigned At Female [facility] Exercise History: Exercise History: [facility] Work Phone: Living Situation: Living Situation: [facility]; [facility] Work Phone: Comment on above: lives with 2 childre n, in middle of divorce Start: 10-10-2024 End: 05-09-2025 Tobacco smoking status NHIS Ex-smoker (finding) [facility] Start: 12-31-2024 End: 01-16-2025 Sex Female (finding) [facility] Patient currentl y [facility] Goals Date Patient Goal Desired Activity /State Clinical Notes 10-11-2024 to 07-17-2025 Note Date & Type Note Facility 07-17-2025 Progress note [facility] 06-19-2025 Progress note [facility] 05-11-2025 Progress note Note Date/Time May 11, 2025 9:01am [facility] Medical Records Department [address] [place] [address] Progress Note - OBGYN 05/11/25 0857 MR#: [id number] Acct: [id number] Name: MICHELINE RUSSO Rep #:[id number] : 1995 30 From: Narcisa Luciano CNM PCP: Rachel Bryant OR NURSE MANAGER-C Status:ADM I N Location: [place] [address] Objective Data Objective Data Patient doing well without complaints. Tolerating PO. Ambulating and voiding without difficulty. Feeding well. Denies chest pain, shortness of breath, calf pain/swelling, fevers, chills, lightheadedness. Vital Signs: Vital Signs Temp Pulse Resp BP Pulse Ox O2 Del Method 98.1 F 67 17 136/88 H 96 Room Air 05/11/25 02:00 05/11/25 06:14 05/11/25 02:00 05/11/25 06:14 05/11/25 02:00 05/11/25 02:00 Oxygen Delivery Method Room Air Weight: 199 lb 8.293 oz Body Mass Index (BMI) 35.3 Intake & Output: Intake and Output for Last 24 Hours 05/09/25 05/10/25 05/11/25 23:59 23:59 23:59 Intake Total 1429.33 / 2237.66 1630.83 / 1630.83 Output Total 1000 / 1100 1000 / 1000 Balance 429.33 / 1137.66 630.83 / 630.83 Lab / Micro Data Attestation: I reviewed the patient's lab results. 05/10/25 06:30 05/10/25 06:30 Labs: Laboratory Results - last 24 hr 05/10/25 09:51: POC Glucose 76 ROS Constitutional Constitutional: Reports systems reviewed and no addt'l complaints, except as documented ENT HEENT: Reports systems reviewed and no addt'l complaints, except as documented Cardiovascular Cardiovascular: Reports systems reviewed and no addt'l complaints, except as documented Respiratory/Chest Respiratory/Chest: Reports systems reviewed and no addt'l complaints, except as documented Gastrointestinal Gastrointestinal: Reports systems reviewed and no addt'l complaints, except as documented Physical Exam Const alert, oriented x3, no apparent distress, average body habitus, no limitations, healthy appearing and well nourished HEENT normocephalic, head/scalp atraumatic, hearing grossly normal bilaterally, external ears normal, EAC's normal and moist oral mucous membranes Resp normal respiratory effort and normal air movement Resp Narrative: Respirations Eased & unlabored. GI soft to palpation, non-tender and non-distended Uterus Palpation: uterus fundus firm (Midline, firm, u/1, small amount of dark red lochia. No odor. ) 05/11/25 0901 <Electronically signed by Narcisa Luciano CNM> Cosigner Signature (if applicable): CC: ~ Signed [facility] Work Phone: 1(564) 155-860407-20-2025 Progress note [facility] Medical Records Department [address] [place] [address] Progress Note - OBGYN 05/11/25 0857 MR#: [id number] Acct: [id number] Name: MICHELINE RUSSO Rep #:[id number] : 1995 30 From: Narcisa Luciano CNM PCP: Rachel Bryant OR NURSE MANAGER-C Status:ADM I N Location: [place] [address] Objective Data Objective Data Patient doing well without complaints. Tolerating PO. Ambulating and voiding without difficulty. Feeding well. Denies chest pain, shortness of breath, calf pain/swelling, fevers, chills, lightheadedness. Vital Signs: Vital Signs Temp Pulse Resp BP Pulse Ox O2 Del Method 98.1 F 67 17 136/88 H 96 Room Air 05/11/25 02:00 05/11/25 06:14 05/11/25 02:00 05/11/25 06:14 05/11/25 02:00 05/11/25 02:00 Oxygen Delivery Method Room Air Weight: 199 lb 8.293 oz Body Mass Index (BMI) 35.3 Intake & Output: Intake and Output for Last 24 Hours 05/09/25 05/10/25 05/11/25 23:59 23:59 23:59 Intake Total 1429.33 / 2237.66 1630.83 / 1630.83 Output Total 1000 / 1100 1000 / 1000 Balance 429.33 / 1137.66 630.83 / 630.83 Lab / Micro Data Attestation: I reviewed the patient's lab results. 05/10/25 06:30 05/10/25 06:30 Labs: Laboratory Results - last 24 hr 05/10/25 09:51: POC Glucose 76 ROS Constitutional Constitutional: Reports systems reviewed and no addt'l complaints, except as documented ENT HEENT: Reports systems reviewed and no addt'l complaints, except as documented Cardiovascular Cardiovascular: Reports systems reviewed and no addt'l complaints, except as documented Respiratory/Chest Respiratory/Chest: Reports systems reviewed and no addt'l complaints, except as documented Gastrointestinal Gastrointestinal: Reports systems reviewed and no addt'l complaints, except as documented Physical Exam Const alert, oriented x3, no apparent distress, average body habitus, no limitations, healthy appearing and well nourished HEENT normocephalic, head/scalp atraumatic, hearing grossly normal bilaterally, external ears normal, EAC's normal and moist oral mucous membranes Resp normal respiratory effort and normal air movement Resp Narrative: Respirations Eased & unlabored. GI soft to palpation, non-tender and non-distended Uterus Palpation: uterus fundus firm (Midline, firm, u/1, small amount of dark red lochia. No odor.) 05/11/25 0901 Cosigner Signature (if applicable): CC: ~ Signed [facility]07-19-2025 Progress note Author Abby Carreon [facility] Note Date/Time May 10, 2025 10:3 8am [facility] Medical Records Department [address] [place] [address] Progress Note - OBGYN 05/10/25 1037 MR#: [id number] Acct: [id number] Name: MICHELINE RUSSO Rep #:[id number] : 1995 30 From: Abby qiu MD PCP: Rachel Bryant, OR NURSE MANAGER-C Status:ADM I N Location: [place] [address] Subjective Subjective Patient doing well without complaints. Tolerating PO. Ambulating and voiding without difficulty. feeding well. Denies chest pain, shortness of breath,calf pain/swelling, fevers, chills. Objective Data Objective Data Vital Signs: Vital Signs Temp Pulse Resp BP Pulse Ox O2 Del Method 97.6 F L 83 16 120/75 97 Room Air 05/10/25 09:50 05/10/25 09:50 05/10/25 09:50 05/10/25 09:50 05/10/25 09:50 05/10/25 09:50 Oxygen Delivery Method Room Air Weight: 199 lb 8.293 oz Body Mass Index (BMI) 35.3 Intake & Output: Intake and Output for Last 24 Hours 05/08/25 05/09/25 05/10/25 23:59 23:59 23:59 Intake Total 1429.33 / 2237.66 1360.00 / 1360.00 Output Total 1000 / 1100 1000 / 1000 Balance 429.33 / 1137.66 360.00 / 360.00 Lab / Micro Data 05/10/25 06:30 05/10/25 06:30 Labs: Laboratory Results - last 24 hr 05/09/25 19:50: WBC 11.7 H, RBC 3.32 L, Hgb 10.8 L, Hct 30.9 L, MCV 93.1, MCH 32.5 H, MCHC 35.0, RDW Std Deviation 46.4 H, RDW Coeff of Kalin 13.7, Plt Count 213, MPV 9.4, Immature Gran % (Auto) 1.400 H, Neut % (Auto) 75.9 H, Lymph % (Auto) 13.8 L, [place] % (Auto) 6.3, Eos % (Auto) 2.4, Baso % (Auto) 0.2, Absolute Neuts (auto) 8.9 H, Absolute Lymphs (auto) 1.61, Nucleated RBC % 0, Sodium 136, Potassium 4.2, Chloride 104, Carbon Dioxide 20.6 L, Anion Gap 11, BUN 7, Creatinine 0.71, Estim Creat Clear Calc 121.47, Est GFR (MDRD) Non-Af 116, BUN/Creatinine Ratio 10.2, Glucose 86, Calcium 9.6, Total Bilirubin 0.54, AST 23, ALT 15, Alkaline Phosphatase 156 H, Total Protein 6.6, Albumin 3.9, Globulin2.8, Albumin/Globulin Ratio 1.4 05/10/25 06:30: WBC 15.9 H, RBC 3.01 L, Hgb 10.2 L, Hct 28.0 L, MCV 93.0, MCH 33.9 H, MCHC 36.4 H, RDW Std Deviation 45.3 H, RDW Coeff of Kalin 13.7, Plt Count 181, MPV 9.3, Immature Gran % (Auto) 0.800, Neut % (Auto) 88.7 H, Lymph % (Auto)6.3 L, [place] % (Auto) 3.8, Eos % (Auto) 0.3, Baso % (Auto) 0.1, Absolute Neuts (auto) 14.1 H, Absolute Lymphs (auto) 1.00, Nucleated RBC % 0, Sodium 133, Potassium 4.3, Chloride 102, Carbon Dioxide 19.2 L, Anion Gap 11, BUN 7, Creatinine 0.74, Estim Creat Clear Calc 116.54, Est GFR (MDRD) Non-Af 111, BUN/Creatinine Ratio 9.4 L, Glucose 110 H, Calcium 8.3, Total Bilirubin 0.54, AST24, ALT 18, Alkaline Phosphatase 138 H, Total Protein 5.9, Albumin 3.4 L, Globulin 2.5, Albumin/Globulin Ratio 1.4 05/10/25 09:51: POC Glucose 76 ROS Constitutional Constitutional: Reports systems reviewed and no addt'l complaints, except as documented Cardiovascular Cardiovascular: Reports systems reviewed and no addt'l complaints, except as documented Respiratory/Chest Respiratory/Chest: Reports systems reviewed and no addt'l complaints, except as documented Gastrointestinal Gastrointestinal: Reports systems reviewed and no addt'l complaints, except as documented Physical Exam Const alert, oriented x3 and no apparent distress HEENT Head and Scalp: atraumatic Resp normal respiratory effort GI soft to palpation and non-tender Bimanual Exam - Vag & Uterus: uterus non-tender Uterus Palpation: uterus fundus firm (below Umbilicus) Assessment & Plan (1) Vaginal delivery: COMMENT: sm iol chtn girl santana (2) Anemia in preg-unspec: QUALIFIERS: Trimester: second trimester Qualified Code(s): O99.012 - Anemia complicating , second trimester COMMENT: SlowFe (3) Chronic hypertension affecting : COMMENT: increased labetalol to 200mg Tid caused near syncope. Can't swallow procardia. Labetalol 100mg tid. RTO 1 wk BP check. MFM consult. Misses doses/discussed importance. No headache/vision changes. baseline pec labs asa 81mg at 10 weeks. 32 wk:NST and BPP weekly plus Growth Q4wk mfm for anatomy;03/31: 32 w US:96% AC, 84% EFW 03/31:vomited labetalol. Will repeat dose and call BP readings:132/83 36w EFW 74%, AC 92% (4) Rh negative status during : QUALIFIERS: Trimester: second trimester Qualified Code(s): O26.892 - Other specified related conditions, second trimester; Z67.91 - Unspecified blood type, Rh negative COMMENT: Rhogam @ 28 wks & PRN Bleeding. Baby is Rh- per Stephy results PLAN: Plan s/p PPD # 1 1. routine post delivery care 2. breast feeding- support given 3. rh negative- baby was rh negative on NIPT 4. rubella immune dc mag at 12 hours, continue labetalol. labs stable 05/10/25 1038 <Electronically signed by Abby Carreon MD> Cosigner Signature (if applicable): CC: ~ Signed [facility] Work Phone: 1(644) 615-886607-19-2025 Progress note [facility] Medical Records Department [address] [place] [address] Progress Note - OBGYN 05/10/25 1037 MR#: [id number] Acct: [id number] Name: MICHELINE RUSSO Rep #:[id number] 3 : 1995 30 From: Abby qiu MD PCP: DAI Bledsoe Status:ADM I N Location: [place] [address] Subjective Subjective Patient doing well without complaints. Tolerating PO. Ambulating and voiding without difficulty. feeding well. Denies chest pain, shortness of breath,calf pain/swelling, fevers, chills. Objective Data Objective Data Vital Signs: Vital Signs Temp Pulse Resp BP Pulse Ox O2 Del Method 97.6 F L 83 16 120/75 97 Room Air 05/10/25 09:50 05/10/25 09:50 05/10/25 09:50 05/10/25 09:50 05/10/25 09:50 05/10/25 09:50 Oxygen Delivery Method Room Air Weight: 199 lb 8.293 oz Body Mass Index (BMI) 35.3 Intake & Output: Intake and Output for Last 24 Hours 05/08/25 05/09/25 05/10/25 23:59 23:59 23:59 Intake Total 1429.33 / 2237.66 1360.00 / 1360.00 Output Total 1000 / 1100 1000 / 1000 Balance 429.33 / 1137.66 360.00 / 360.00 Lab / Micro Data 05/10/25 06:30 05/10/25 06:30 Labs: Laboratory Results - last 24 hr 05/09/25 19:50: WBC 11.7 H, RBC 3.32 L, Hgb 10.8 L, Hct 30.9 L, MCV 93.1, MCH 32.5 H, MCHC 35.0, RDW Std Deviation 46.4 H, RDW Coeff of Kalin 13.7, Plt Count 213, MPV 9.4, Immature Gran % (Auto) 1.400 H, Neut % (Auto) 75.9 H, Lymph % (Auto) 13.8 L, [place] % (Auto) 6.3, Eos % (Auto) 2.4, Baso % (Auto) 0.2, Absolute Neuts (auto) 8.9 H, Absolute Lymphs (auto) 1.61, Nucleated RBC % 0, Sodium 136, Potassium 4.2, Chloride 104, Carbon Dioxide 20.6 L, Anion Gap 11, BUN 7, Creatinine 0.71, Estim Creat ClearCalc 121.47, Est GFR (MDRD) Non-Af 116, BUN/Creatinine Ratio 10.2, Glucose 86, Calcium 9.6, Total Bilirubin 0.54, AST 23, ALT 15, Alkaline Phosphatase 156 H, Total Protein 6.6, Albumin 3.9, Globulin2.8, Albumin/Globulin Ratio 1.4 05/10/25 06:30: WBC 15.9 H, RBC 3.01 L, Hgb 10.2 L, Hct 28.0 L, MCV 93.0, MCH 33.9 H, MCHC 36.4 H, RDW Std Deviation 45.3 H, RDW Coeff of Kalin 13.7, Plt Count 181, MPV 9.3, Immature Gran % (Auto) 0.800, Neut % (Auto) 88.7 H, Lymph % (Auto)6.3 L, [place] % (Auto) 3.8, Eos % (Auto) 0.3, Baso % (Auto) 0.1, Absolute Neuts (auto) 14.1 H, Absolute Lymphs (auto) 1.00, Nucleated RBC % 0, Sodium 133, Potassium 4.3, Chloride 102, Carbon Dioxide 19.2 L, Anion Gap 11, BUN 7, Creatinine 0.74, Estim Creat Clear Calc 116.54, Est GFR (MDRD) Non-Af 111, BUN/Creatinine Ratio 9.4 L, Glucose 110 H, Calcium 8.3, Total Bilirubin 0.54, AST24, ALT 18, Alkaline Phosphatase 138 H, Total Protein 5.9, Albumin 3.4 L, Globulin 2.5, Albumin/Globulin Ratio 1.4 05/10/25 09:51: POC Glucose 76 ROS Constitutional Constitutional: Reports systems reviewed and no addt'l complaints, except as documented Cardiovascular Cardiovascular: Reports systems reviewed and no addt'l complaints, except as documented Respiratory/Chest Respiratory/Chest: Reports systems reviewed and no addt'l complaints, except as documented Gastrointestinal Gastrointestinal: Reports systems reviewed and no addt'l complaints, except as documented Physical Exam Const alert, oriented x3 and no apparent distress HEENT Head and Scalp: atraumatic Resp normal respiratory effort GI soft to palpation and non-tender Bimanual Exam - Vag & Uterus: uterus non-tender Uterus Palpation: uterus fundus firm (below Umbilicus) Assessment & Plan (1) Vaginal delivery: COMMENT: sm iol chtn girl santana (2) Anemia in preg-unspec: QUALIFIERS: Trimester: second trimester Qualified Code(s): O99.012 - Anemia complicating ,second trimester COMMENT: SlowFe (3) Chronic hypertension affecting : COMMENT: increased labetalol to 200mg Tid caused near syncope. Can't swallow procardia. Labetalol 100mg tid. RTO 1 wk BP check. MFM consult. Misses doses/discussed importance. No headache/vision changes. baseline pec labs asa 81mg at 10 weeks. 32 wk:NST and BPP weekly plus Growth Q4wk mfm for anatomy;03/31: 32 w US:96% AC, 84% EFW 03/31:vomited labetalol. Will repeat dose and call BP readings:132/83 36w EFW 74%, AC 92% (4) Rh negative status during : QUALIFIERS: Trimester: second trimester Qualified Code(s): O26.892 - Other specified related conditions, second trimester; Z67.91 - Unspecified blood type, Rh negative COMMENT: Rhogam @ 28 wks & PRN Bleeding. Baby is Rh- per Stephy results PLAN: Plan s/p PPD # 1 1. routine post delivery care 2. breast feeding- support given 3. rh negative- baby was rh negative on NIPT 4. rubella immune dc mag at 12 hours, continue labetalol. labs stable 05/10/25 1038 Cosigner Signature (if applicable): CC: ~ Signed [facility]07-19-2025 Discharge summary Author Abby Crareon [facility] Note Date/Time May 09, 2025 11:5 5pm [facility] Medical Records Department [address] [place] [address] Instructions for Home/Discharge Instructions 05/09/25 2350 MR#: [id number] Acct: [id number] Name: MICHELINE RUSSO Rep #:[id number] 3 : 1995 30 From: Abby qiu MD PCP: Rachel Bryant OR NURSE MANAGER-C Status:ADM I N Discharge Instructions DC O2, CPAP, BIPAP needs Home O2 Discharge instructions: No Dressing / Incision Discharge Activity: Return to Normal Activity, May Not Drive (while taking narcotic pain medications.) and May Shower May resume sexual activity in: 4-6 weeks Dressing / Incision Call your doctor if your incision/area has: Continuous Slow Oozing, Sudden Increased Bleeding, Increased Pain/ Swelling, Increased Redness and Foul Smelling Discharge Follow Up Care Please Follow Up With: Abby Carreon MD When: Call [phone] to make an appointment with your doctor in 6 weeks. If you had elevated blood pressure or 4th degree laceration, you will need to be seen in 2 weeks. Test Results: Test results from this visit will be discussed in further detail at your follow- up appointment, if applicable. Discharge Plan Admission Admit Date/Time: 05/09/25 08:05 Attending Provider: Abby Carreon Primary Care Provider: Rachel Bryant Discharge Orders/Prescriptions Prescriptions: No Action PNV-[place] 28-1-300 mg capsule 1 cap PO DAILY labetalol 200 mg tablet 100 mg PO TID aspirin 81 mg tablet 81 mg PO QDAY Referrals / Follow Up: Rachel Bryant NP-C [Primary Care Provider] - 05/09/252354<Electronically signed by Abby Carreon MD>Abby Carreon MD CC: DAI Bryant ~ Signed [facility] Work Phone: 1(713) 595-936807-18-2025 Discharge summary [facility] Medical Records Department [address] [place] [address] Instructions for Home/Discharge Instructions 05/09/252349 MR#: [id number] Acct: [id number] Name: MICHELINE RUSSO Rep #:[id number] 3 : 1995 30 From: Abby qiu MD PCP: DAI Bledsoe Status:ADM I N Discharge Instructions DC O2, CPAP, BIPAP needs Home O2 Discharge instructions: No Dressing / Incision Discharge Activity: Return to Normal Activity, May Not Drive (while taking narcotic pain medications.) and May Shower May resume sexual activity in: 4-6 weeks Dressing / Incision Call your doctor if your incision/area has: Continuous Slow Oozing, Sudden Increased Bleeding, Increased Pain/ Swelling, Increased Redness and Foul Smelling Discharge Follow Up Care Please Follow Up With: Abby Carreon MD When: Call [phone] to make an appointment with your doctor in 6 weeks. If you had elevated blood pressure or 4th degree laceration, you will need to be seen in 2 weeks. Test Results: Test results from this visit will be discussed in further detail at your follow- up appointment, if applicable. Discharge Plan Admission Admit Date/Time: 05/09/25 08:05 Attending Provider: Abby Carreon Primary Care Provider: Rachel Bryant Discharge Orders/Prescriptions Prescriptions: No Action PNV-[place] 28-1-300 mg capsule 1 cap PO DAILY labetalol 200 mg tablet 100 mg PO TID aspirin 81 mg tablet 81 mg PO QDAY Referrals / Follow Up: Rachel Bryant NP-C [Primary Care Provider] - 05/09/252354Abby Carreon MD CC: DAI Bryant ~ Signed [facility]07-18-2025 Procedure note [facility] Medical Records Department [address] [place] [address] OB Vaginal Delivery 05/09/25 2348 MR#: [id number] Acct: [id number] Name: MICHELINE RUSSO Rep #:[id number] 2 : 1995 30 From: Abby qiu MD PCP: Rachel Bryant, OR NURSE MANAGER-C Status:ADM I N Location: [place] [address] Assessment & Plan (1) Encounter for induction of labor: (2) Anemia in preg-unspec: QUALIFIERS: Trimester: second trimester Qualified Code(s): O99.012 - Anemia complicating ,second trimester COMMENT: SlowFe (3) Chronic hypertension affecting : COMMENT: increased labetalol to 200mg Tid caused near syncope. Can't swallow procardia. Labetalol 100mg tid. RTO 1 wk BP check. MFM consult. Misses doses/discussed importance. No headache/vision changes. baseline pec labs asa 81mg at 10 weeks. 32 wk:NST and BPP weekly plus Growth Q4wk mfm for anatomy;03/31: 32 w US:96% AC, 84% EFW 03/31:vomited labetalol. Will repeat dose and call BP readings:132/83 36w EFW 74%, AC 92% (4) Thyroid disease: COMMENT: nl labs. history not present. not on any medications, was on previous during surrogacy. (5) Obesity affecting : QUALIFIERS: Trimester: second trimester Obesity type affecting : unspecified obesity Qualified Code(s): O99.212 - Obesity complicating , second trimester COMMENT: HgbA1c (6) : QUALIFIERS: Weeks of gestation: 37 weeks Qualified Code(s): Z3A.37 - 37 weeks gestation of COMMENT: GBS neg, NIPT low risk(NO GENDER) carrier neg. . nl anatomy. (7) Rh negative status during : QUALIFIERS: Trimester: second trimester Qualified Code(s): O26.892 - Other specified related conditions, second trimester; Z67.91- Unspecified blood type, Rh negative COMMENT: Rhogam @ 28 wks & PRN Bleeding. Baby is Rh- per Stephy results (8) Supervision of high-risk : QUALIFIERS: Trimester: third trimester Qualified Code(s): O09.93 - Supervision of high risk , unspecified, third trimester COMMENT: [id number](1 child was surrogate),GLENN 05/21/25, Dominic Melendez BF Jordon (9) Vaginal delivery: COMMENT: sm iol chtn girl santana Maternal Data Information GLENN Calculator Estimated Delivery Date Method Current WG Current Estimate 05/21/25 LMP (Certain) 38w 2d Vaginal Delivery Maternal Presentation Maternal Presentation: see assessment and plan Vaginal Delivery Information Procedure Performed: Spontaneous Vaginal Delivery Surgeon/Practitioner: Abby Carreon Date of Procedure: 05/09/25 Pre-Procedure Diagnosis: see assessment and plan Post-Procedure Diagnosis: same Type of anesthesia: None Special Medications: pitocin hemabate magnesium sulfate Estimated Blood Loss: 300 Findings Description of procedure: Patient began pushing and delivered the head in the JOSEE presentation. The head was delivered atraumatically and a loose nuchal cord ?1 was identified and easily reduced over the 's head. The anterior and posterior shoulders delivered without complication followed by the rest of the andthe infantwas placed on the maternal abdomen. Delayed cord clamping was employed for approximately 60 seconds. Cord was clamped and cut and gentle traction was applied to the cord and the placenta delivered spontaneously immediately following it was noted to be intact with three-vessel cord. The perineum and vagina were inspected and noted to have no laceration. EBL was 300 with mild atony given pitocin hemabat and massage. Patient and tolerated delivery well. Presentation: Vertex Placental Delivery Description: Spontaneous Specimen collected: Yes Description of specimen(s) removed: placenta Net Software Developer lining feller: No Post Vaginal Deli Medications given after delivery: Other (pitocin) Complication Complications: No Multi Select Codes Urinary/Genital Urinary/Genital CPT Codes: 37861 Vaginal Delivery global pkg 05/09/25 2350 Cosigner Signature (if applicable): CC: DAI Bryant; Dr. Abby Carreon MD~ Signed [facility]07-18-2025 Progress note Author Abby Carreon [facility] Note Date/Time May 09, 2025 7:58 pm [facility] Medical Records Department [address] [place] [address] Progress Note 05/09/251956 MR#: [id number] Acct: [id number] Name: MICHELINE RUSSO Rep #:[id number] 3 : 1995 30 From: Abby qiu MD PCP: DAI Bledsoe Status:ADM I N Location: [place] [address] Progress Note bps elevated- magnesium started and labs drawn, asymptomatic, contractions increasing. current tracing: FHT: 140 Moderate variability reactive no decelerations category I tracing [place]: q 2-3 Contractions reviewed tracing abnormalities since last note: no significant A/P: labetalol hypertensive protocol, will do 200 TID after for management 05/09/251957 <Electronically signed by Abby Carreon MD> Abby Carreon MD Cosigner Signature (if applicable): CC: ~ Signed [facility] Work Phone: 1(384) 756-982407-18-2025 Progress note [facility] Medical Records Department [address] [place] [address] Progress Note 05/09/251956 MR#: [id number] Acct: [id number] Name: MICHELINE RUSSO Rep #:[id number] 3 : 1995 30 From: Abby qiu MD PCP: DAI Bledsoe Status:ADM I N Location: [place] [address] Progress Note bps elevated- magnesium started and labs drawn, asymptomatic, contractions increasing. current tracing: FHT: 140 Moderate variability reactive no decelerations category I tracing [place]: q 2-3 Contractions reviewed tracing abnormalities since last note: no significant A/P: labetalol hypertensive protocol, will do 200 TID after for management 05/09/251957 Abby Carreon MD Cosigner Signature (if applicable): CC: ~ Signed [facility]07-18-2025 History and physical note Author Abby Carreon [facility] Note Date/Time May 09, 2025 5:16 pm [facility] Medical Records Department [address] [place] [address] H&P Exam - MANAGER HOME IMPROVEMENT 05/09/25 1715 MR#: [id number] Acct: [id number] Name: MICHELINE RUSSO Rep #:[id number] : 1995 30 From: Abby qiu MD PCP: DAI Bledsoe Status:ADM I N Location: [id number] HPI - General General Date of Admission: 05/09/25 HPI Narrative MICHELINE RUSSO, is a 30 F who presentsfor IOL chtn no vb lof good fm no reuglar ctx Maternal Data Information GLENN Calculator Estimated Delivery Date Method Current WG Current Estimate 05/21/25 LMP (Certain) 38w 2d PFSH PFSH Medical History Former smoker, stopped smoking in distant past Seasonal allergies Ovarian cyst Hypertension Thyroid disease Anemia History of hemorrhoids Shortness of breath Home Medications ?Medication ?Instructions ?Recorded ?Last Taken ?Type multivit-min no.71-iron fum 28 1 cap PO DAILY vitamin 10/10/24 05/09/25 06:30 History mg-folate no.1 1 mg-dha 300 mg 1 cap capsule (PNV-[place]) labetalol 200 mg tablet 100 mg PO TID elevated BP 05/09/25 06:30 History 100 mg aspirin 81 mg tablet 81 mg PO QDAY blood pressure 04/21/25 05/09/25 06:30 History 81 mg Allergy/AdvReac Type Severity Reaction Status Date / Time No Known Allergies Allergy Verified 05/05/25 11:44 Family History Father Myocardial infarction Grandfather Myocardial infarction Hypertension Uncle Myocardial infarction Mother Hypertension Surgical History History of appendectomy S/P wisdom tooth extraction No significant past surgical history Social History adopted: No household members: significant other and children housing: house number of children: 2 current occupational status: employed current occupation: [employer] pets and animals: Yes (Avoids litterbox) pets and animals: cat(s) history of recent travel: No sexually active: Yes Smoking Status: Former smoker how long ago did patient quit smokinyears ago alcohol intake: current alcohol intake frequency: holidays/special occasions only details: not while substance use type: does not use well-balanced diet: daily or most days caffeine: No eating out: 1-3 times/week during the past year weight has: remained stable what type of physical activity do you participate in: none pelon/scientology: None seatbelt use: always do you feel safe at home: Yes additional social history: BF 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 Date Name GA/Weeks Outcome Route Bth Weight Infant Gen Labor Lgth Anesthesia Del Locatn Provider FOB Unknown 2013-Serge 40 live - full term 6lbs 15o Male none [facility] Unknown itt 40 live - full term 8lbs 7o Male none [facility] Unknown 2020 Miscarriage 7 spontaneous 11/08/19 surrogate live - full term [facility] Dr. Abby Carreon Delivery Date: 11/08/19 Last Updated by: Maribel Clark Surrogate Visit Details Expected Delivery Route/Plan Labor Preferences- CB/BF classes: no labor support person: Dave labor intervention preferences: [] pain management options preferred: limited cut cord/dad catch: yes : yes PP control planned: discussed discussed possible routes of delivery and associated risks: [] special requests: [] Plans Covid status: [] Flu vaccine: [] Tdap vaccine: [] Rhogam: NA, baby Rh neg LARC form signed: yes Problem list reviewed and updated with the most current plan of care details and appropriate orders placed. Relevant counseling for the gestational age provided. Continue routine care and follow up unless otherwise noted in visit notes/problem list details OB Flowsheet Initial Weight: 187 lb Date -?-?-?-?-?-?-?-?-?-?-?-?- EGA Weight BP Urine Prot -?-?-?-?-?-?-?-?-?-?-?-?- Glucose FHR FuHt Pres Dilation -?-?-?-?-?-?-?-?-?-?-?-?- Effaced St Visit Note 10/11/24 -?-?-?-?-?-?-?-?-?-?-?-?- 8w 2d 187 lb (+0 oz) 143/84 -?-?-?-?-?-?-?-?-?-?-?-?- 186 -?-?-?-?-?-?-?-?-?-?-?-?- LC- CRL 1.47 con with LMP. desires nipt. thyroid normal, no longer on medications.chronic htn on labetolol. 11/06/24 -?-?-?-?-?-?-?-?-?-?-?-?- 12w 0d 189 lb (+2 lb) 141/94 Negative -?-?-?-?-?-?-?-?-?-?-?-?- Negative -?-?-?-?-?-?-?-?-?-?-?-?- JV- pt here for nursing visit. still with elevated pressures. Starting procardia and close follow up. pt states that she has been on 5 or 6 different blood pressure medications. when she goes above 100 of labetalol her pressure drops too low. if now improvement with procardia will need to consult cardiology or at least primary care for bp assistance. 11/13/24 -?-?-?-?-?-?-?-?-?-?-?-?- 13w 0d 190 lb (+3 lb) 144/91 Negative -?-?-?-?-?-?-?-?-?-?-?-?- Negative 166 -?-?-?-?-?-?-?-?-?-?-?-?- MH-No VB. Br US confirm FHT. Not taking procardia/can't swallow it. States home BPs nl when takes labetalol 100mg tid but missed dose today. Had CMP per employee health today and minimally elevated AST/ALT. Stressed importance of tid dosing and risks of uncontrolled HTN. MFM consult. RTO 1 week 12/12/24 -?-?-?-?-?-?-?-?-?-?-?-?- 17w 1d 187 lb 4 oz (+4 oz) 123/77 Negative -?-?-?-?-?-?-?-?--?-?-?-?- Negative 150 -?-?-?-?-?-?-?-?-?-?-?-?- SM- no vb lof cr amping 01/09/25 -?-?-?-?-?-?-?-?-?-?-?-?- 21w 1d 191 lb (+4 lb) 135/86 Negative -?-?-?-?-?-?-?-?-?-?-?-?- Negative 151 -?-?-?-?-?-?-?-?-?-?-?-?- JV- no complaint s today. rpt cmp and cbc today. lft's have been trending down. 02/03/25 -?-?-?-?-?-?-?-?-?-?-?-?- 24w 5d 191 lb 6 oz (+4 lb 6 oz) 126/84 Negative -?-?-?-?-?-?-?-?-?-?-?-?- Negative 160 25 -?-?-?-?-?-?-?-?-?-?-?-?- KW- no vb/lof/ct x. good fm. is having some lower BPs (90/60) at home but not symptomatic. pepcid for heart burn. glucose next visit. 02/24/25 -?-?-?-?-?-?-?-?-?-?-?-?- 27w 5d 190 lb 4 oz (+3 lb 4 oz) 124/77 Negative -?-?-?-?-?-?-?-?-?-?-?-?- Negative 154 28 -?-?-?-?-?-?-?-?-?-?-?-?- MH-No VB. Good F m 28 wk labs pending. Larc. Discussed need for weekly NST, BPP and also growth US Q4wk at 32 wk. 03/12/25 -?-?-?-?-?-?-?-?-?-?-?-?- 30w 0d 196 lb 2 oz (+9 lb 2 oz) 138/84 Negative -?-?-?-?-?-?-?-?-?-?-?-?- Negative 145 30 -?-?-?-?-?-?-?-?-?-?-?-?- JV-no lof, vag b leeding or dec fm.needs growth us 32 and 36 weeks. still on labetalol.importance of iol discussed and she wants to try to avoid that. Will look forward to MFM explaining to her. JV-no lof, vag bleeding or d ec fm.needs growth us 32 and 36 weeks. still on labetalol.importance of iol discussed and she wants to try to avoid that. Will look forward to MFM explaining to her. needs tsh next visit 03/28/25 -?-?-?-?-?-?-?-?-?-?-?-?- 32w 2d 194 lb 2 oz (+7 lb 2 oz) 132/77 Trace -?-?-?-?-?--?-?-?-?-?-?-?- 250 g/dL 140 -?-?-?-?-?-?-?-?-?-?-?-?- KW- NST only. ur ine very concentrated and reports little to drink today. 03/31/25 -?-?-?-?--?-?-?-?-?-?-?-?- 32w 5d 195 lb 2 oz (+8 lb 2 oz) 144/91 138/94 Negative -?-?-?-?-?-?-?-?-?-?-?-?- Negative 140 -?-?-?-?-?-?-?-?-?--?-?-?- MH-NST only reac tive. States vomited labetalol this am. States more nausea in morning. Taking pepcid AM only and is controlling her heartburn. Discussed increased bile may cause nausea. Could also consider zofran 30 m in prior to taking labetalol. She will think about it. Reviewed with BENITA:patient will take another dose of labetalol and call in BP today. Denies headache or vision changes. 04/08/25 -?-?-?-?-?-?-?-?-?-?-?-?- 33w 6d 197 lb 8 oz (+10 lb 8 oz) 131/89 Negative -?-?-?-?-?-?-?-?-?-?-?-?- Negative 130 34 Cephalic -?-?-?-?-?-?-?-?-?-?-?-?- JV-patient has c omplaint today of vaginal irritation. She tried monistat and it burned so she discontinued it. JV-patient has complaint tod ay of vaginal irritation. She tried monistat and it burned so she discontinued it. on exam there is some white discharge. she also complains of pain on her tongue. starting diflucan 150 for 2 doses, 3 days apart. 04/14/25 -?-?-?-?-?-?-?-?-?-?-?-?- 34w 5d 198 lb 4 oz (+11 lb 4 oz) 132/87 Negative -?-?-?-?-?-?-?-?-?--?-?-?- Negative 140 Cephalic -?-?-?-?-?-?-?-?-?-?-?-?- SM- no vb lof go od fm no regular ctx reviewed IOL plan 04/21/25 -?-?-?-?-?-?-?-?-?-?-?-?- 35w 5d 198 lb (+11 lb) 122/79 Negative -?-?-?-?-?-?-?-?-?-?-?-?- Negative 135 -?-?-?-?-?-?-?-?-?-?-?-?- KW- no vb/lof/ct x. good fm. NST reactive but did have one decel. to wp for BPP. discussed 38 IOL with SM last visit per patient. 04/28/25 -?-?-?-?-?-?-?-?-?-?-?-?- 36w 5d 198 lb 2 oz (+11 lb 2 oz) 136/90 Negative -?-?-?-?-?-?-?-?-?-?-?-?- Negative 130 37 Cephalic 0 -?-?-?-?-?-?-?-?-?-?-?-?- KW- no vb/lof/ct x. good fm. NST reactive. GBS today. KW- no vb/lof/ctx. good fm. NST reactive. GBS today. growth US tomorrow 05/05/25 -?-?-?-?-?-?-?-?-?-?-?-?- 37w 5d 200 lb (+13 lb) 136/92 Negative -?-?-?-?-?-?-?-?-?-?-?-?- Negative 140 38 Cephalic 0 .5 -?-?-?-?-?-?-?-?-?-?-?-?- 20 JV- nst reactive. IOL set for monday as per her request for this weekend. NST FHR Rate Baby A Baseline: 130 Variability:: Moderate Accelerations:: 15 x 15 Decelerations:: None NST Reactive:: Yes FHR Category:: Category I Uterine Activity:: irregular ROS Constitutional Constitutional: Reports systems reviewed and no addt'l complaints, except as documented Eyes Eyes: Denies change in vision ENT HEENT: Reports systems reviewed and no addt'l complaints, except as documented; Denies headache(s) Cardiovascular Cardiovascular: Reports systems reviewed and no addt'l complaints, except as documented; Denies chest pain or dyspnea Respiratory/Chest Respiratory/Chest: Reports systems reviewed and no addt'l complaints, except as documented Gastrointestinal Gastrointestinal: Reports systems reviewed and no addt'l complaints, except as documented; Denies abdominal pain Genitourinary Genitourinary: Reports systems reviewed and no addt'l complaints, except as documented, contractions Details: present (irregular) and movement Details: present; Denies dysuria or genital lesions Musculoskeletal Musculoskeletal: Reports systems reviewed and no addt'l complaints, except as documented Neurologic Neurologic: Reports systems reviewed and no addt'l complaints, except as documented Endocrine Endocrinology: Reports systems reviewed and no addt'l complaints, except as documented Vital Signs Vital Signs Vital Signs: 05/09/25 08:35 05/09/25 08:35 05/09/25 08:35 Temperature Temperature Source Temporal Pulse Rate 90 Respiratory Rate Blood Pressure 149/98 H BP Systolic 149 BP Diastolic 98 Pulse Ox 05/09/25 08:35 05/09/25 08:35 05/09/25 08:35 Temperature Temperature Source Pulse Rate 87 Respiratory Rate 18 Blood Pressure BP Systolic BP Diastolic Pulse Ox 97 05/09/25 08:35 05/09/25 08:39 05/09/25 08:39 Temperature 98.2 F Temperature Source Pulse Rate 91 Respiratory Rate Blood Pressure BP Systolic BP Diastolic Pulse Ox 98 05/09/25 08:44 05/09/25 08:44 05/09/25 08:49 Temperature Temperature Source Pulse Rate 101 H 84 Respiratory Rate Blood Pressure BP Systolic BP Diastolic Pulse Ox 98 05/09/25 08:49 05/09/25 08:54 05/09/25 08:54 Temperature Temperature Source Pulse Rate 90 Respiratory Rate Blood Pressure BP Systolic BP Diastolic Pulse Ox 97 97 05/09/25 08:59 05/09/25 08:59 05/09/25 09:00 Temperature Temperature Source Pulse Rate 85 Respiratory Rate Blood Pressure 124/83 H BP Systolic 124 BP Diastolic 83 Pulse Ox 98 05/09/25 09:00 05/09/25 10:34 05/09/25 10:34 Temperature Temperature Source Pulse Rate 82 73 Respiratory Rate Blood Pressure 152/101 H BP Systolic 152 BP Diastolic 101 Pulse Ox 05/09/25 10:40 05/09/25 10:40 05/09/25 10:40 Temperature Temperature Source Temporal Pulse Rate 98 Respiratory Rate 18 Blood Pressure BP Systolic BP Diastolic Pulse Ox 05/09/25 10:40 05/09/25 10:40 05/09/25 10:41 Temperature 97.6 F L Temperature Source Pulse Rate Respiratory Rate Blood Pressure 118/85 H BP Systolic 118 BP Diastolic 85 Pulse Ox 99 05/09/25 10:41 05/09/25 10:41 05/09/25 11:36 Temperature Temperature Source Pulse Rate 73 Respiratory Rate Blood Pressure 149/96 H BP Systolic 149 BP Diastolic 96 Pulse Ox 98 05/09/25 11:36 05/09/25 11:36 05/09/25 11:36 Temperature Temperature Source Pulse Rate 71 69 Respiratory Rate 18 Blood Pressure BP Systolic BP Diastolic Pulse Ox 05/09/25 11:36 05/09/25 11:36 05/09/25 11:39 Temperature 98.2 F Temperature Source Pulse Rate 70 Respiratory Rate Blood Pressure BP Systolic BP Diastolic Pulse Ox 99 05/09/25 11:39 05/09/25 11:42 05/09/25 11:42 Temperature Temperature Source Pulse Rate 71 Respiratory Rate Blood Pressure 137/88 H BP Systolic 137 BP Diastolic 88 Pulse Ox 99 05/09/25 12:44 05/09/25 12:44 05/09/25 12:44 Temperature Temperature Source Temporal Pulse Rate 72 Respiratory Rate Blood Pressure 139/89 H BP Systolic 139 BP Diastolic 89 Pulse Ox 05/09/25 12:44 05/09/25 12:44 05/09/25 12:44 Temperature Temperature Source Pulse Rate 73 Respiratory Rate 18 Blood Pressure BP Systolic BP Diastolic Pulse Ox 99 05/09/25 12:44 05/09/25 12:45 05/09/25 12:45 Temperature 97.8 F Temperature Source Pulse Rate 73 Respiratory Rate Blood Pressure BP Systolic BP Diastolic Pulse Ox 98 05/09/25 13:23 05/09/25 13:23 05/09/25 13:23 Temperature Temperature Source Pulse Rate 69 Respiratory Rate Blood Pressure 147/93 H BP Systolic 147 BP Diastolic 93 Pulse Ox 99 05/09/25 13:23 05/09/25 13:23 05/09/25 13:23 Temperature Temperature Source Pulse Rate 68 Respiratory Rate 18 Blood Pressure BP Systolic BP Diastolic Pulse Ox 98 05/09/25 13:23 05/09/25 14:36 05/09/25 14:36 Temperature 98.1 F Temperature Source Temporal Pulse Rate 73 Respiratory Rate Blood Pressure BP Systolic BP Diastolic Pulse Ox 05/09/25 14:36 05/09/25 14:36 05/09/25 14:36 Temperature 97.5 F L Temperature Source Pulse Rate Respiratory Rate 18 Blood Pressure BP Systolic BP Diastolic Pulse Ox 99 05/09/25 14:38 05/09/25 14:38 05/09/25 16:27 Temperature Temperature Source Pulse Rate 71 Respiratory Rate Blood Pressure 130/75 H 143/92 H BP Systolic 130 143 BP Diastolic 75 92 Pulse Ox 05/09/25 16:27 05/09/25 16:27 05/09/25 16:27 Temperature Temperature Source Temporal Pulse Rate 77 74 Respiratory Rate Blood Pressure BP Systolic BP Diastolic Pulse Ox 05/09/25 16:27 05/09/25 16:27 05/09/25 16:27 Temperature 98.6 F Temperature Source Pulse Rate Respiratory Rate 18 Blood Pressure BP Systolic BP Diastolic Pulse Ox 99 05/09/25 16:28 05/09/25 16:28 05/09/25 16:33 Temperature Temperature Source Pulse Rate 77 78 Respiratory Rate Blood Pressure BP Systolic BP Diastolic Pulse Ox 99 05/09/25 16:33 05/09/25 16:33 05/09/25 16:33 Temperature Temperature Source Pulse Rate 71 Respiratory Rate Blood Pressure 139/86 H BP Systolic 139 BP Diastolic 86 Pulse Ox 99 Weight Weight: 199 lb 8.293 oz Body Mass Index (BMI) 35.3 Physical Exam Const alert, oriented x3, no apparent distress and healthy appearing HEENT normocephalic and moist oral mucous membranes Head and Scalp: atraumatic Neck full ROM, no lymphadenopathy, supple and thyroid normal General: trachea midline Lymph Lymphatic: no lymphadenopathy noted Chest inspection of chest normal Resp normal respiratory effort Cardio regular rate GI soft to palpation and non-tender GI Narrative: gravid Inspection: gravid external exam normal Manual OB Exam: estimated gestational size appropriate, presentation cephalic, dilated, effaced and station Extremity normal to inspection General Extremity: Negative for edema Skin no rashes or lesions noted Neuro no focal motor deficits and deep tendon reflexes 2+ bilaterally Motor Exam: strength 5/5 throughout and clonus absent Psych mental status grossly normal Labs Labs Labs: Blood Type O NEGATIVE Antibody Screen NEGATIVE Hct 28.2 % (37-47) L Hgb 9.9 g/dL (12.0-15.0) L Pap Smear Negative Obstetrics Ultrasound Syphilis Total Ab Nonreactive (Nonreactive) VZV IgG Antibody > 4000 index (Immune >165) Rubella IgG Antibody Reactive (Nonreactive) Hep Bs Antigen Non-Reactive (Nonreactive) Hepatitis C Antibody Non-Reactive (Nonreactive) Chlamydia DNA (VISHAL) Negative (Negative) N.gonorrhoeae DNA (VISHAL) Negative (Negative) HIV 1&2 Antibody Nonreactive (Nonreactive) Glucose 1 Hr 50 gm 124 mg/dL (70-140) Group B Strep DNA Negative (Negative) Rhogam given: No Miscellaneous Test Assessment & Plan (1) Chronic hypertension affecting : COMMENT: increased labetalol to 200mg Tid caused near syncope. Can't swallow procardia. Labetalol 100mg tid. RTO 1 wk BP check. MFM consult. Misses doses/discussed importance. No headache/vision changes. baseline pec labs asa 81mg at 10 weeks. 32 wk:NST and BPP weekly plus Growth Q4wk mfm for anatomy;03/31: 32 w US:96% AC, 84% EFW 03/31:vomited labetalol. Will repeat dose and call BP readings:132/83 36w EFW 74%, AC 92% (2) Obesity affecting : QUALIFIERS: Trimester: second trimester Obesity type affecting : unspecified obesity Qualified Code(s): O99.212 - Obesity complicating , second trimester COMMENT: HgbA1c (3) : QUALIFIERS: Weeks of gestation: 37 weeks Qualified Code(s): Z3A.37 - 37 weeks gestation of COMMENT: GBS neg, NIPT low risk(NO GENDER) carrier neg. . nl anatomy. (4) Rh negative status during : QUALIFIERS: Trimester: second trimester Qualified Code(s): O26.892 - Other specified related conditions, second trimester; Z67.91 - Unspecified blood type, Rh negative COMMENT: Rhogam @ 28 wks & PRN Bleeding. Baby is Rh- per Stephy results (5) Supervision of high-risk : QUALIFIERS: Trimester: third trimester Qualified Code(s): O09.93 - Supervision of high risk , unspecified, third trimester COMMENT: [id number](1 child was surrogate),GLENN 05/21/25, PC Dominic Valentine, ANTIONE Martins (6) Thyroid disease affecting : COMMENT: normal labs (7) Encounter for induction of labor: PLAN: Plan Patient presents IOL, plan management for with cytotec. Pain management: minimal intervention GBS negative. Management of any complications: chtn I have reviewed the [facility] and made any clinically relevant updates. 05/09/25 1716 <Electronically signed by Abby Carreon MD> Cosigner Signature (if applicable): CC: DAI Bryant; Dr. Abby Carreon MD~ Signed [facility] Work Phone: [phone]) 474-577907-18-2025 Progress note Author Abby Carreon [facility] Note Date/Time May 09, 2025 5:16 pm [facility] Medical Records Department [address] [place] [address] Progress Note - OBGYN 05/09/251715 MR#: [id number] Acct: [id number] Name: MICHELINE RUSSO Rep #:[id number] : 1995 30 From: Abby qiu MD PCP: Rachel Bryant OR NURSE MANAGER-C Status:ADM I N Location: [place] [address] Subjective Subjective arom light mec cat I tracing 5 cm continue exp management s/p cytotec Objective Data Objective Data Vital Signs: Vital Signs Temp Pulse Resp BP Pulse Ox 98.6 F 71 18 139/86 H 99 05/09/25 16:27 05/09/25 16:33 05/09/25 16:27 05/09/25 16:33 05/09/25 16:33 Weight: 199 lb 8.293 oz Body Mass Index (BMI) 35.3 Intake & Output: Intake and Output for Last 24 Hours 05/07/25 05/08/25 05/09/25 23:59 23:59 23:59 Intake Total 500 / 500 Output Total 450 / 450 Balance 50 / 50 Lab / Micro Data 05/09/25 08:20 Labs: Laboratory Results - last 24 hr 05/09/25 08:20: WBC 8.2, RBC 3.04 L, Hgb 9.9 L, Hct 28.2 L, MCV 92.8, MCH 32.6 H, MCHC 35.1, RDW Std Deviation 45.4 H, RDW Coeff of Kalin 13.7, Plt Count 178, MPV9.6, Immature Gran % (Auto) 1.300 H, Neut % (Auto) 76.4 H, Lymph % (Auto) 13.9 L, [place] % (Auto) 4.9, Eos % (Auto) 3.3, Baso % (Auto) 0.2, Absolute Neuts (auto) 6.3, Absolute Lymphs (auto) 1.14, Nucleated RBC % 0, Syphilis Total Ab Nonreactive, Blood Type O NEGATIVE, Antibody Screen NEGATIVE 05/09/251715 <Electronically signed by Abby Carreon MD> Cosigner Signature (if applicable): CC: ~ Signed [facility] Work Phone: 1(290) 775-834207-18-2025 History and physical note [facility] Medical Records Department [address] [place] [address] H&P Exam - MANAGER HOME IMPROVEMENT 05/09/25 1715 MR#: [id number] Acct: [id number] Name: MICHELINE RUSSO Rep #:[id number] : 1995 30 From: Abby qiu MD PCP: FRANKIE BledsoeC Status:ADM I N Location: [id number] HPI - General General Date of Admission: 05/09/25 HPI Narrative MICHELINE RUSSO, is a 30 F who presentsfor IOL chtn no vb lof good fm no reuglar ctx Maternal Data Information GLENN Calculator Estimated Delivery Date Method Current WG Current Estimate 05/21/25 LMP (Certain) 38w 2d PFSH PFSH Medical History Former smoker, stopped smoking in distant past Seasonal allergies Ovarian cyst Hypertension Thyroid disease Anemia History of hemorrhoids Shortness of breath Home Medications ?Medication ?Instructions ?Recorded ?Last Taken ?Type multivit-min no.71-iron fum 28 1 cap PO DAILY vitamin 10/10/24 05/09/25 06:30 History mg-folate no.1 1 mg-dha 300 mg 1 cap capsule (PNV-[place]) labetalol 200 mg tablet 100 mg PO TID elevated BP 05/09/25 06:30 History 100 mg aspirin 81 mg tablet 81 mg PO QDAY blood pressure 04/21/25 05/09/25 06:30 History 81 mg Allergy/AdvReac Type Severity Reaction Status Date / Time No Known Allergies Allergy Verified 05/05/25 11:44 Family History Father Myocardial infarction Grandfather Myocardial infarction Hypertension Uncle Myocardial infarction Mother Hypertension Surgical History History of appendectomy S/P wisdom tooth extraction No significant past surgical history Social History adopted: No household members: significant other and children housing: house number of children: 2 current occupational status: employed current occupation: [employer] pets and animals: Yes (Avoids litterbox) pets and animals: cat(s) history of recent travel: No sexually active: Yes Smoking Status: Former smoker how long ago did patient quit smokinyears ago alcohol intake: current alcohol intake frequency: holidays/special occasions only details: not while substance use type: does not use well-balanced diet: daily or most days caffeine: No eating out: 1-3 times/week during the past year weight has: remained stable what type of physical activity do you participate in: none pelon/scientology: None seatbelt use: always do you feel safe at home: Yes additional social history: BF 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 Date Name GA/Weeks Outcome Route Bth Weight Gen Labor Lgth Anesthesia Del Locat Provider FOB Unknown 2013-Serge 40 live - full term 6lbs 15o Male none [facility] Unknown 2016-Dominic 40 live - full term 8lbs 7o Male none [facility] Unknown 2020 Miscarriage 7 spontaneous 11/08/19 surrogate live - full term [facility] Dr. Abby Carreon Delivery Date: 11/08/19 Last Updated by: Maribel Clark Surrogate Visit Details Expected Delivery Route/Plan Labor Preferences- CB/BF classes: no labor support person: Dave labor intervention preferences: [] pain management options preferred: limited cut cord/dad catch: yes : yes PP control planned: discussed discussed possible routes of delivery and associated risks: [] special requests: [] Plans Covid status: [] Flu vaccine: [] Tdap vaccine: [] Rhogam: NA, baby Rh neg LARC form signed: yes Problem list reviewed and updated with the most current plan of care details and appropriate ordersplaced. Relevant counseling for the gestational age provided. Continue routine care and follow up unless otherwise noted in visit notes/problem list details OB Flowsheet Initial Weight: 187 lb Date -?-?-?-?-?-?-?-?-?-?-?-?- EGA Weight BP Urine Prot -?-?-?-?-?-?-?-?-?-?-?-?- Glucose FHR FuHt Pres Dilation -?-?-?-?-?-?-?-?-?-?-?-?- Effaced St Visit Note 10/11/24 -?-?-?-?-?-?-?-?-?-?-?-?- 8w 2d 187 lb (+0 oz) 143/84 -?-?-?-?-?-?-?-?-?-?-?-?- 186 -?-?-?-?-?-?-?-?-?-?-?-?- LC- CRL 1.47 con with LMP. desires nipt. thyroid normal, no longer on medications.chronic htn on labetolol. 11/06/24 -?-?-?-?-?-?-?-?-?-?-?-?- 12w 0d 189 lb (+2 lb) 141/94 Negative -?-?-?-?-?-?-?-?-?-?-?-?- Negative -?-?-?-?-?-?-?-?-?-?-?-?- JV- pt here for nursing visit. still with elevated pressures. Starting procardia and close follow up. pt states that she has been on 5 or 6 different blood pressure medications. when she goes above 100 of labetalol her pressure drops too low. if now improvement with procardia will need to consult cardiology or at least primary care for bp assistance. 11/13/24 -?-?-?-?-?-?-?-?-?-?-?-?- 13w 0d 190 lb (+3 lb) 144/91 Negative -?-?-?-?-?-?-?-?-?-?-?-?- Negative 166 -?-?-?-?-?-?-?-?-?-?-?-?- MH-No VB. Br US confirm FHT. Not taking procardia/can't swallow it. States home BPs nl when takes labetalol 100mg tid but missed dose today. Had CMP per employee health todayand minimally elevated AST/ALT. Stressed importance of tid dosing and risks of uncontrolled HTN. MFM consult. RTO 1 week 12/12/24 -?-?-?-?-?-?-?-?-?-?-?-?- 17w 1d 187 lb 4 oz (+4 oz) 123/77 Negative -?-?-?-?-?-?-?-?--?-?-?-?- Negative 150 -?-?-?-?-?-?-?-?-?-?-?-?- SM- no vb lof cr amping 01/09/25 -?-?-?-?-?-?-?-?-?-?-?-?- 21w 1d 191 lb (+4 lb) 135/86 Negative -?-?-?-?-?-?-?-?-?-?-?-?- Negative 151 -?-?-?-?-?-?-?-?-?-?-?-?- JV- no complaint s today. rpt cmp and cbc today. lft's have been trending down. 02/03/25 -?-?-?-?-?-?-?-?-?-?-?-?- 24w 5d 191 lb 6 oz (+4 lb 6 oz) 126/84 Negative -?-?-?-?-?-?-?-?-?-?-?-?- Negative 160 25 -?-?-?-?-?-?-?-?-?-?-?-?- KW- no vb/lof/ct x. good fm. is having some lower BPs (90/60) at home but not symptomatic. pepcid for heart burn. glucose next visit. 02/24/25 -?-?-?-?-?-?-?-?-?-?-?-?- 27w 5d 190 lb 4 oz (+3 lb 4 oz) 124/77 Negative -?-?-?-?-?-?-?-?-?-?-?-?- Negative 154 28 -?-?-?-?-?-?-?-?-?-?-?-?- MH-No VB. Good F m 28 wk labs pending. [facility]. Discussed need for weekly NST, BPP and also growth US Q4wk at 32 wk. 03/12/25 -?-?-?-?-?-?-?-?-?-?-?-?- 30w 0d 196 lb 2 oz (+9 lb 2 oz) 138/84 Negative -?-?-?-?-?-?-?-?-?-?-?-?- Negative 145 30 -?-?-?-?-?-?-?-?-?-?-?-?- JV-no lof, vag b leeding or dec fm.needs growth us 32 and 36 weeks. still on labetalol.importance of iol discussed and she wants to try to avoid that. Will look forward to MFM explaining to her. JV-no lof, vag bleeding or d ec fm.needs growth us 32 and 36 weeks. still on labetalol.importance of iol discussed and she wants to try to avoid that. Will look forward to MFM explaining to her. needs tsh next visit 03/28/25 -?-?-?-?-?-?-?-?-?-?-?-?- 32w 2d 194 lb 2 oz (+7 lb 2 oz) 132/77 Trace -?-?-?-?-?--?-?-?-?-?-?-?- 250 g/dL 140 -?-?-?-?-?-?-?-?-?-?-?-?- KW- NST only. ur ine very concentrated and reports little to drink today. 03/31/25 -?-?-?-?--?-?-?-?-?-?-?-?- 32w 5d 195 lb 2 oz (+8 lb 2 oz) 144/91 138/94 Negative -?-?-?-?-?-?-?-?-?-?-?-?- Negative 140 -?-?-?-?-?-?-?-?-?--?-?-?- MH-NST only reac tive. States vomited labetalol this am. States more nausea in morning. Taking pepcid AM only and is controlling her heartburn. Discussed increased bile may cause nausea. Could also consider zofran 30 m in prior to taking labetalol. She will think about it. Reviewed with JV:patient will take another dose of labetalol and call in BP today. Denies headache orvision changes. 04/08/25 -?-?-?-?-?-?-?-?-?-?-?-?- 33w 6d 197 lb 8 oz (+10 lb 8 oz) 131/89 Negative -?-?-?-?-?-?-?-?-?-?-?-?- Negative 130 34 Cephalic -?-?-?-?-?-?-?-?-?-?-?-?- JV-patient has c omplaint today of vaginal irritation. She tried monistat and it burned so she discontinued it. JV-patient has complaint tohali ay of vaginal irritation. She tried monistat and it burned so she discontinued it. on exam there is some white discharge. she also complains of pain onher tongue. starting diflucan 150 for 2 doses, 3 days apart. 04/14/25 -?-?-?-?-?-?-?-?-?-?-?-?- 34w 5d 198 lb 4 oz (+11 lb 4 oz) 132/87 Negative -?-?-?-?-?-?-?-?-?--?-?-?- Negative 140 Cephalic -?-?-?-?-?-?-?-?-?-?-?-?- SM- no vb lof go od fm no regular ctx reviewed IOL plan 04/21/25 -?-?-?-?-?-?-?-?-?-?-?-?- 35w 5d 198 lb (+11 lb) 122/79 Negative -?-?-?-?-?-?-?-?-?-?-?-?- Negative 135 -?-?-?-?-?-?-?-?-?-?-?-?- KW- no vb/lof/ct x. good fm. NST reactive but did have one decel. to wp for BPP. discussed 38 IOL with SM last visit per patient. 04/28/25 -?-?-?-?-?-?-?-?-?-?-?-?- 36w 5d 198 lb 2 oz (+11 lb 2 oz) 136/90 Negative -?-?-?-?-?-?-?-?-?-?-?-?- Negative 130 37 Cephalic 0 -?-?-?-?-?-?-?-?-?-?-?-?- KW- no vb/lof/ct x. good fm. NST reactive. GBS today. KW- no vb/lof/ctx. good fm. NST reactive. GBS today. growth US tomorrow 05/05/25 -?-?-?-?-?-?-?-?-?-?-?-?- 37w 5d 200 lb (+13 lb) 136/92 Negative -?-?-?-?-?-?-?-?-?-?-?-?- Negative 140 38 Cephalic 0 .5 -?-?-?-?-?-?-?-?-?-?-?-?- 20 JV- nst reactive. IOL set for monday as per her request for this weekend. NST FHR Rate Baby A Baseline: 130 Variability:: Moderate Accelerations:: 15 x 15 Decelerations:: None NST Reactive:: Yes FHR Category:: Category I Uterine Activity:: irregular ROS Constitutional Constitutional: Reports systems reviewed and no addt'l complaints, except as documented Eyes Eyes: Denies change in vision ENT HEENT: Reports systems reviewed and no addt'l complaints, except as documented; Denies headache(s) Cardiovascular Cardiovascular: Reports systems reviewed and no addt'l complaints, except as documented; Denies chest pain or dyspnea Respiratory/Chest Respiratory/Chest: Reports systems reviewed and no addt'l complaints, except as documented Gastrointestinal Gastrointestinal: Reports systems reviewed and no addt'l complaints, except as documented; Denies abdominal pain Genitourinary Genitourinary: Reports systems reviewed and no addt'l complaints, except as documented, contractions Details: present (irregular) and movement Details: present; Denies dysuria or genital lesions Musculoskeletal Musculoskeletal: Reports systems reviewed and no addt'l complaints, except as documented Neurologic Neurologic: Reports systems reviewed and no addt'l complaints, except as documented Endocrine Endocrinology: Reports systems reviewed and no addt'l complaints, except as documented Vital Signs Vital Signs Vital Signs: 05/09/25 08:35 05/09/25 08:35 05/09/25 08:35 Temperature Temperature Source Temporal Pulse Rate 90 Respiratory Rate Blood Pressure 149/98 H BP Systolic 149 BP Diastolic 98 Pulse Ox 05/09/25 08:35 05/09/25 08:35 05/09/25 08:35 Temperature Temperature Source Pulse Rate 87 Respiratory Rate 18 Blood Pressure BP Systolic BP Diastolic Pulse Ox 97 05/09/25 08:35 05/09/25 08:39 05/09/25 08:39 Temperature 98.2 F Temperature Source Pulse Rate 91 Respiratory Rate Blood Pressure BP Systolic BP Diastolic Pulse Ox 98 05/09/25 08:44 05/09/25 08:44 05/09/25 08:49 Temperature Temperature Source Pulse Rate 101 H 84 Respiratory Rate Blood Pressure BP Systolic BP Diastolic Pulse Ox 98 05/09/25 08:49 05/09/25 08:54 05/09/25 08:54 Temperature Temperature Source Pulse Rate 90 Respiratory Rate Blood Pressure BP Systolic BP Diastolic Pulse Ox 97 97 05/09/25 08:59 05/09/25 08:59 05/09/25 09:00 Temperature Temperature Source Pulse Rate 85 Respiratory Rate Blood Pressure 124/83 H BP Systolic 124 BP Diastolic 83 Pulse Ox 98 05/09/25 09:00 05/09/25 10:34 05/09/25 10:34 Temperature Temperature Source Pulse Rate 82 73 Respiratory Rate Blood Pressure 152/101 H BP Systolic 152 BP Diastolic 101 Pulse Ox 05/09/25 10:40 05/09/25 10:40 05/09/25 10:40 Temperature Temperature Source Temporal Pulse Rate 98 Respiratory Rate 18 Blood Pressure BP Systolic BP Diastolic Pulse Ox 05/09/25 10:40 05/09/25 10:40 05/09/25 10:41 Temperature 97.6 F L Temperature Source Pulse Rate Respiratory Rate Blood Pressure 118/85 H BP Systolic 118 BP Diastolic 85 Pulse Ox 99 05/09/25 10:41 05/09/25 10:41 05/09/25 11:36 Temperature Temperature Source Pulse Rate 73 Respiratory Rate Blood Pressure 149/96 H BP Systolic 149 BP Diastolic 96 Pulse Ox 98 05/09/25 11:36 05/09/25 11:36 05/09/25 11:36 Temperature Temperature Source Pulse Rate 71 69 Respiratory Rate 18 Blood Pressure BP Systolic BP Diastolic Pulse Ox 05/09/25 11:36 05/09/25 11:36 05/09/25 11:39 Temperature 98.2 F Temperature Source Pulse Rate 70 Respiratory Rate Blood Pressure BP Systolic BP Diastolic Pulse Ox 99 05/09/25 11:39 05/09/25 11:42 05/09/25 11:42 Temperature Temperature Source Pulse Rate 71 Respiratory Rate Blood Pressure 137/88 H BP Systolic 137 BP Diastolic 88 Pulse Ox 99 05/09/25 12:44 05/09/25 12:44 05/09/25 12:44 Temperature Temperature Source Temporal Pulse Rate 72 Respiratory Rate Blood Pressure 139/89 H BP Systolic 139 BP Diastolic 89 Pulse Ox 05/09/25 12:44 05/09/25 12:44 05/09/25 12:44 Temperature Temperature Source Pulse Rate 73 Respiratory Rate 18 Blood Pressure BP Systolic BP Diastolic Pulse Ox 99 05/09/25 12:44 05/09/25 12:45 05/09/25 12:45 Temperature 97.8 F Temperature Source Pulse Rate 73 Respiratory Rate Blood Pressure BP Systolic BP Diastolic Pulse Ox 98 05/09/25 13:23 05/09/25 13:23 05/09/25 13:23 Temperature Temperature Source Pulse Rate 69 Respiratory Rate Blood Pressure 147/93 H BP Systolic 147 BP Diastolic 93 Pulse Ox 99 05/09/25 13:23 05/09/25 13:23 05/09/25 13:23 Temperature Temperature Source Pulse Rate 68 Respiratory Rate 18 Blood Pressure BP Systolic BP Diastolic Pulse Ox 98 05/09/25 13:23 05/09/25 14:36 05/09/25 14:36 Temperature 98.1 F Temperature Source Temporal Pulse Rate 73 Respiratory Rate Blood Pressure BP Systolic BP Diastolic Pulse Ox 05/09/25 14:36 05/09/25 14:36 05/09/25 14:36 Temperature 97.5 F L Temperature Source Pulse Rate Respiratory Rate 18 Blood Pressure BP Systolic BP Diastolic Pulse Ox 99 05/09/25 14:38 05/09/25 14:38 05/09/25 16:27 Temperature Temperature Source Pulse Rate 71 Respiratory Rate Blood Pressure 130/75 H 143/92 H BP Systolic 130 143 BP Diastolic 75 92 Pulse Ox 05/09/25 16:27 05/09/25 16:27 05/09/25 16:27 Temperature Temperature Source Temporal Pulse Rate 77 74 Respiratory Rate Blood Pressure BP Systolic BP Diastolic Pulse Ox 05/09/25 16:27 05/09/25 16:27 05/09/25 16:27 Temperature 98.6 F Temperature Source Pulse Rate Respiratory Rate 18 Blood Pressure BP Systolic BP Diastolic Pulse Ox 99 05/09/25 16:28 05/09/25 16:28 05/09/25 16:33 Temperature Temperature Source Pulse Rate 77 78 Respiratory Rate Blood Pressure BP Systolic BP Diastolic Pulse Ox 99 05/09/25 16:33 05/09/25 16:33 05/09/25 16:33 Temperature Temperature Source Pulse Rate 71 Respiratory Rate Blood Pressure 139/86 H BP Systolic 139 BP Diastolic 86 Pulse Ox 99 Weight Weight: 199 lb 8.293 oz Body Mass Index (BMI) 35.3 Physical Exam Const alert, oriented x3, no apparent distress and healthy appearing HEENT normocephalic and moist oral mucous membranes Head and Scalp: atraumatic Neck full ROM, no lymphadenopathy, supple and thyroid normal General: trachea midline Lymph Lymphatic: no lymphadenopathy noted Chest inspection of chest normal Resp normal respiratory effort Cardio regular rate GI soft to palpation and non-tender GI Narrative: gravid Inspection: gravid external exam normal Manual OB Exam: estimated gestational size appropriate, presentation cephalic, dilated, effaced and station Extremity normal to inspection General Extremity: Negative for edema Skin no rashes or lesions noted Neuro no focal motor deficits and deep tendon reflexes 2+ bilaterally Motor Exam: strength 5/5 throughout and clonus absent Psych mental status grossly normal Labs Labs Labs: Blood Type O NEGATIVE Antibody Screen NEGATIVE Hct 28.2 % (37-47) L Hgb 9.9 g/dL (12.0-15.0) L Pap Smear Negative Obstetrics Ultrasound Syphilis Total Ab Nonreactive (Nonreactive) VZV IgG Antibody > 4000 index (Immune >165) Rubella IgG Antibody Reactive (Nonreactive) Hep Bs Antigen Non-Reactive (Nonreactive) Hepatitis C Antibody Non-Reactive (Nonreactive) Chlamydia DNA (VISHAL) Negative (Negative) N.gonorrhoeae DNA (VISHAL) Negative (Negative) HIV 1&2 Antibody Nonreactive (Nonreactive) Glucose 1 Hr 50 gm 124 mg/dL (70-140) Group B Strep DNA Negative (Negative) Rhogam given: No Miscellaneous Test Assessment & Plan (1) Chronic hypertension affecting : COMMENT: increased labetalol to 200mg Tid caused near syncope. Can't swallow procardia. Labetalol 100mg tid. RTO 1 wk BP check. MFM consult. Misses doses/discussed importance. No headache/vision changes. baseline pec labs asa 81mg at 10 weeks. 32 wk:NST and BPP weekly plus Growth Q4wk mfm for anatomy;03/31: 32 w US:96% AC, 84% EFW 03/31:vomited labetalol. Will repeat dose and call BP readings:132/83 36w EFW 74%, AC 92% (2) Obesity affecting : QUALIFIERS: Trimester: second trimester Obesity type affecting : unspecified obesity Qualified Code(s): O99.212 - Obesity complicating , second trimester COMMENT: HgbA1c (3) : QUALIFIERS: Weeks of gestation: 37 weeks Qualified Code(s): Z3A.37 - 37 weeks gestation of COMMENT: GBS neg, NIPT low risk(NO GENDER) carrier neg. . nl anatomy. (4) Rh negative status during : QUALIFIERS: Trimester: second trimester Qualified Code(s): O26.892 - Other specified related conditions, second trimester; Z67.91 - Unspecified blood type, Rh negative COMMENT: Rhogam @ 28 wks & PRN Bleeding. Baby is Rh- per Stephy results (5) Supervision of high-risk : QUALIFIERS: Trimester: third trimester Qualified Code(s): O09.93 - Supervision of high risk , unspecified, third trimester COMMENT: [id number](1 child was surrogate),GLENN 05/21/25, PC Domiinc Valentine BF Jordon (6) Thyroid disease affecting : COMMENT: normal labs (7) Encounter for induction of labor: PLAN: Plan Patient presents IOL, plan management for with cytotec. Pain management: minimal intervention GBS negative. Management of any complications: chtn I have reviewed the [facility] and made any clinically relevant updates. 05/09/25 3016 Cosigner Signature (if applicable): CC: DAI Bryant; Dr. Abby Carreon MD~ Signed [facility]07-18-2025 Progress note [facility] Medical Records Department [address] [place] [address] Progress Note - OBGYN 05/09/251715 MR#: [id number] Acct: [id number] Name: MICHELINE RUSSO Rep #:[id number] : 1995 30 From: Abby qiu MD PCP: Rachel Bryant, OR NURSE MANAGER-C Status:ADM I N Location: [place] [id number] Subjective Subjective arom light mec cat I tracing 5 cm continue exp management s/p cytotec Objective Data Objective Data Vital Signs: Vital Signs Temp Pulse Resp BP Pulse Ox 98.6 F 71 18 139/86 H 99 05/09/25 16:27 05/09/25 16:33 05/09/25 16:27 05/09/25 16:33 05/09/25 16:33 Weight: 199 lb 8.293 oz Body Mass Index (BMI) 35.3 Intake & Output: Intake and Output for Last 24 Hours 05/07/25 05/08/25 05/09/25 23:59 23:59 23:59 Intake Total 500 / 500 Output Total 450 / 450 Balance 50 / 50 Lab / Micro Data 05/09/25 08:20 Labs: Laboratory Results - last 24 hr 05/09/25 08:20: WBC 8.2, RBC 3.04 L, Hgb 9.9 L, Hct 28.2 L, MCV 92.8, MCH 32.6 H, MCHC 35.1, RDW Std Deviation 45.4 H, RDW Coeff of Kalin 13.7, Plt Count 178, MPV9.6, Immature Gran % (Auto) 1.300 H, Neut % (Auto) 76.4 H, Lymph % (Auto) 13.9 L, [place] % (Auto) 4.9, Eos % (Auto) 3.3, Baso % (Auto) 0.2, Absolute Neuts (auto) 6.3, Absolute Lymphs (auto) 1.14, Nucleated RBC % 0, Syphilis Total Ab Nonreactive, Blood Type O NEGATIVE, Antibody Screen NEGATIVE 05/09/251715 Cosigner Signature (if applicable): CC: ~ Signed [facility]07-08-2025 Radiology Diagnostic study note [facility] Imaging Services [address] [place], [place] [address] OB Limited With Biometrics MR#: [id number] Acct: [id number] Name: MICHELINE RUSSO Rep #: [id number] : 1995 F 30 From: Ritesh Braun MD PCP: DAI Bledsoe Status: REG C LI Study:OB Limited With Biometrics Date of Exam : 04/29/25 Exam# [id number] Ordering Dr: Antony Correa NP PROCEDURE: OB LIMITED WITH BIOMETRICS 04/29/2025 REASON FOR EXAM: GROWTH TECHNIQUE: OB LIMITED WITH BIOMETRICS COMPARISON: Prior study dated March 28, 2025. FINDINGS Number: 1 Position: Vertex Placental Position: Anterior and not low-lying. Placental Abnormalities: No evidence of previa. DIMENSIONS: Biparietal Diameter: 9 cm: 36 weeks and 4 days: 57 percentile/ Head Circumference: 32.4 cm: 36 weeks and 5 days: 21 percentile/ Abdominal Circumference: 34.4 cm: 38 weeks and 2 days: 92nd percentile/ Femur Length: 7.1 cm: 36 weeks and 1 day: 31st percentile/ ESTIMATED WEIGHT: 3250 g plus/-487 g ESTIMATED WEIGHT PERCENTILE (24+ weeks): 74 ESTIMATED GESTATIONAL AGE: Baseline: 36 weeks and 6 days By Ultrasound: 37 weeks and 1 day ESTIMATED DATE OF DELIVERY: Baseline: May 21, 2025 By Ultrasound: May 19, 2025 BIOPHYSICAL ASSESSMENT: Amniotic Fluid Volume: 6.3 cm Amniotic Fluid Index: 12.2 (8-24 cm normal range) Cardiac Motion: 144 beats per minute (average) Trunk and Limb Motion: Present. MATERNAL ANATOMY: Adnexa: Neither maternal ovary is successfully identified. US/OB Limited With Biometrics IMPRESSION: Single live intrauterine gestation with a mean gestational age of 37 weeks and 1day. Reading Location: [place] [address] CC: OR NURSE MANAGERMarisela Bryant; OR NURSE MANAGER-Aby Correa ~ Manager Research And Development: Signed [facility]07-07-2025 Progress [facility] [address], [address] [place] [address] OFFICE VISIT Date of Service: 04/28/25 MR#: [id number] Acct: [id number] Name: MICHELINE RUSSO Rep #: [id number] : 1995 Provider: KATY Bolanos Age/Sex: 30/F [place] [facility] [place] Signed Intake Vital Signs 02/24/25 13:05 04/21/25 14:15 04/28/25 13:08 Height 5 ft 4 in 5 ft 3 in 5 ft 3 in Weight: 198 lb 2 oz BMI 35.1 BP 136/90 H Intake Visit Reasons: 37 ob/nst Chief Complaint: 37wk ob/nst Poker Manager Required: No Is patient in pain?: No Allergies No Known Allergies Allergy (Verified 04/28/25 13:10) Medications ?Medication ?Instructions ?Recorded ?Confirmed ?Type multivit-min no.71-iron fum 28 1 cap PO DAILY 10/10/24 04/28/25 History mg-folate no.1 1 mg-dha 300 mg capsule (PNV-[place]) labetalol 200 mg tablet 100 mg PO TID 10/25/2404/28 History aspirin 81 mg tablet 81 mg PO QDAY 04/21/2504/28 History Last Menstrual Period: 08/14/24 : No PFSH PFSH Medical History Former smoker, stopped smoking in distant past Seasonal allergies Ovarian cyst Hypertension Thyroid disease Anemia History of hemorrhoids Shortness of breath Surgical History History of appendectomy S/P wisdom tooth extraction No significant past surgical history Family History Father Myocardial infarction Grandfather Myocardial infarction Hypertension Uncle Myocardial infarction Mother Hypertension Social History adopted: No household members: significant other and children housing: house number of children: 2 current occupational status: employed current occupation: [employer] pets and animals: Yes (Avoids litterbox) pets and animals: cat(s) history of recent travel: No sexually active: Yes Smoking Status: Former smoker how long ago did patient quit smokinyears ago alcohol intake: current alcohol intake frequency: holidays/special occasions only details: not while substance use type: does not use well-balanced diet: daily or most days caffeine: No eating out: 1-3 times/week during the past year weight has: remained stable what type of physical activity do you participate in: none pelon/scientology: None seatbelt use: always do you feel safe at home: Yes additional social history: BF 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 Date Name GA/Weeks Outcome Route Bth Weight Infant Gen Labor Lgth Anes thes ia Del Locatn Provider FOB Unknown 2013-Serge 40 live - full term 6lbs 15o Male none [facility] Unknown 2016-Dominic 40 live - full term 8lbs 7o Male none [facility] Unknown 2020 Miscarriage 7 spontaneous 11/08/19 surrogate live - full term [facility] Dr. Abby Carreon Delivery Date: 11/08/19 Last Updated by: Maribel Clark Surrogate HPI 37 ob/nst Details: MICHELINE RUSSO is a 30 year old who presents for routine OB visit. OB Visit GLENN Calculator Estimated Delivery Date Method Current WG Current Estimate 05/21/25 LMP (Certain) 36w 5d Expected Delivery Route/Plan Labor Preferences- CB/BF classes: no labor support person: Dave labor intervention preferences: [] pain management options preferred: limited cut cord/dad catch: yes : yes PP control planned: discussed discussed possible routes of delivery and associated risks: [] special requests: [] Specific Issue/Plans Covid status: [] Flu vaccine: [] Tdap vaccine: [] Rhogam: NA, baby Rh neg LARC form signed: yes Problem list reviewed and updated with the most current plan of care details and appropriate ordersplaced. Relevant counseling for the gestational age provided. Continue routine care and follow up unless otherwise noted in visit notes/problem list details Initial Weight: 187 lb Date -?-?-?-?-?-?-?-?-?-?-?-?- EGA Weight BP Urine Prot -?-?-?-?-?-?-?-?-?-?-?-?- Glucose FHR FuHt Pres Dilation -?-?-?-?-?-?-?-?-?-?-?-?- Effaced St Visit Note 10/11/24 -?-?-?-?-?-?-?-?-?-?-?-?- 8w 2d 187 lb (+0 oz) 143/84 -?-?-?-?-?-?-?-?-?-?-?-?- 186 -?-?-?-?-?-?-?-?-?-?-?-?- LC- CRL 1.47 con with LMP. desires nipt. thyroid normal, no longer on medications.chronic htn on labetolol. 11/06/24 -?-?-?-?--?-?-?-?-?-?-?-?- 12w 0d 189 lb (+2 lb) 141/94 Negative -?-?-?-?-?-?-?-?-?-?-?-?- Negative -?-?-?-?-?-?-?-?-?-?-?-?- JV- pt here for nursing visit. still with elevated pressures. Starting procardia and close follow up. pt states that she has been on 5 or 6 different blood pressure medications. when she goes above 100 of labetalol her pressure drops too low. if now improvement with procardia will need to consult cardiology or at least primary care for bp assistance. 11/13/24 -?-?-?-?-?-?-?-?-?-?-?-?- 13w 0d 190 lb (+3 lb) 144/91 Negative -?-?-?-?-?-?-?-?-?-?-?-?- Negative 166 -?-?-?-?-?-?-?-?-?-?-?-?- MH-No VB. Br US confirm FHT. Not taking procardia/can't swallow it. States home BPs nl when takes labetalol 100mg tid but missed dose today. Had CMP per employee health todayand minimally elevated AST/ALT. Stressed importance of tid dosing and risks of uncontrolled HTN. MFM consult. RTO 1 week 12/12/24 -?-?-?-?-?-?-?-?-?-?-?-?- 17w 1d 187 lb 4 oz (+4 oz) 123/77 Negative -?-?-?-?-?-?-?-?-?-?-?-?- Negative 150 -?-?-?-?-?-?-?-?-?-?-?-?- SM- no vb lof cr amping 01/09/25 -?-?-?-?-?-?-?-?-?-?-?--?- 21w 1d 191 lb (+4 lb) 135/86 Negative -?-?-?-?-?-?-?-?-?-?-?-?- Negative 151 -?-?-?-?-?-?-?-?-?-?-?-?- JV- no complaint s today. rpt cmp and cbc today. lft's have been trending down. 02/03/25 -?-?-?-?-?-?-?-?-?-?-?-?- 24w 5d 191 lb 6 oz (+4 lb 6 oz) 126/84 Negative -?-?-?-?-?-?-?-?-?-?-?-?- Negative 160 25 -?-?-?-?-?-?-?-?-?-?-?-?- KW- no vb/lof/ct x. good fm. is having some lower BPs (90/60) at home but not symptomatic. pepcid for heart burn. glucose next visit. 02/24/25 -?-?-?-?-?-?-?-?-?-?-?-?- 27w 5d 190 lb 4 oz (+3 lb 4 oz) 124/77 Negative -?-?-?-?-?-?-?-?-?-?-?-?- Negative 154 28 -?-?-?-?-?-?-?-?-?-?-?-?- -No VB. Good F m 28 wk labs pending. Lar. Discussed need for weekly NST, BPP and also growth US Q4wk at 32 wk. 03/12/25 -?-?-?-?-?-?-?-?-?-?-?-?- 30w 0d 196 lb 2 oz (+9 lb 2 oz) 138/84 Negative -?-?-?-?-?-?-?-?-?-?-?-?- Negative 145 30 -?-?-?-?-?-?-?-?-?-?-?-?- JV-no lof, vag b leeding or dec fm.needs growth us 32 and 36 weeks. still on labetalol.importance of iol discussed and she wants to try to avoid that. Will look forward to MFM explaining to her. JV-no lof, vag bleeding or d ec fm.needs growth us 32 and 36 weeks. still on labetalol.importance of iol discussed and she wants to try to avoid that. Will look forward to MFM explaining to her. needs tsh next visit 03/28/25 -?-?-?-?-?-?-?-?-?-?-?-?- 32w 2d 194 lb 2 oz (+7 lb 2 oz) 132/77 Trace -?-?-?-?-?-?-?-?-?-?-?-?- 250 g/dL 140 -?-?-?-?-?-?-?-?-?-?-?-?- KW- NST only. ur ine very concentrated and reports little to drink today. 03/31/25 -?-?-?-?-?-?-?-?-?-?-?-?- 32w 5d 195 lb 2 oz (+8 lb 2 oz) 144/91 138/94 Negative -?-?-?-?-?-?-?-?-?-?-?-?- Negative 140 -?-?-?-?-?-?-?-?-?-?-?-?- -NST only reac tive. States vomited labetalol this am. States more nausea in morning. Taking pepcid AM only and is controlling her heartburn. Discussed increased bile may cause nausea. Could also consider zofran 30 m in prior to taking labetalol. She will think about it. Reviewed with JV:patient will take another dose of labetalol and call in BP today. Denies headache orvision changes. 04/08/25 -?-?-?-?-?-?-?-?-?-?-?-?- 33w 6d 197 lb 8 oz (+10 lb 8 oz) 131/89 Negative -?-?-?-?-?-?-?-?-?-?-?-?- Negative 130 34 Cephalic -?-?-?-?-?-?-?-?-?-?-?-?- JV-patient has c omplaint today of vaginal irritation. She tried monistat and it burned so she discontinued it. JV-patient has complaint tod ay of vaginal irritation. She tried monistat and it burned so she discontinued it. on exam there is some white discharge. she also complains of pain onher tongue. starting diflucan 150 for 2 doses, 3 days apart. 04/14/25 -?-?-?-?-?-?-?-?-?-?-?-?- 34w 5d 198 lb 4 oz (+11 lb 4 oz) 132/87 Negative -?-?-?-?-?-?-?-?-?-?-?-?- Negative 140 Cephalic -?-?-?-?-?-?-?-?-?-?-?-?- SM- no vb lof go od fm no regular ctx reviewed IOL plan 04/21/25 -?-?-?-?-?-?-?-?-?-?-?-?- 35w 5d 198 lb (+11 lb) 122/79 Negative -?-?-?-?-?-?-?-?-?-?-?-?- Negative 135 -?-?-?-?-?-?-?-?-?-?-?-?- KW- no vb/lof/ct x. good fm. NST reactive but did have one decel. to wp for BPP. discussed 38 IOL with SM last visit per patient. 04/28/25 -?-?-?--?-?-?-?-?-?-?-?-?- 36w 5d 198 lb 2 oz (+11 lb 2 oz) 136/90 Negative -?-?-?-?-?-?-?-?-?-?-?-?- Negative 130 37 Cephalic 0 -?--?-?-?-?-?-?-?-?-?-?-?- KW- no vb/lof/ct x. good fm. NST reactive. GBS today. KW- no vb/lof/ctx. good fm. NST reactive. GBS today. growth US tomorrow ACOG First Trimester First Trimester: Discussed Second Trimester Second Trimester: Signs and Symptoms of Labor, Selecting a care provider, Reproductive Life Planning & Contreception, Care Planning, Tobacco Cessation, Depression/Anxiety and Intimate Partner Violence Third Trimester Third Trimester: Pain Management Plans, Labor support person(s), Immediate Larc, Movement Monitoring and Infant Feeding No ; Discussed Trial of Labor after Counseling and Discussed Circumcision preference Office Procedures Non-stress Test Non-Stress Test Indications for Monitoring: Yes hypertension Heart Rate Baseline: 130 Heart Rate Variability: moderate Movement: Present Heart Rate Accelerations: Present Decelerations: Absent Contractions: Absent Impression: Yes Reactive Non-Stress Test Results POC Urinalysis 2 Dip (Clinic) Office Urine Glucose Negative Last Edit by Tamera Alvarez on 04/28/25 13:18 Office Urine Protein Negative Last Edit by Tamera Alvarez on 04/28/25 13:18 Coding Level of Care Code OB Routine Diagnoses Antepartum variable deceleration O36.8390 Anemia during in second trimester O99.012 Trimester: second trimester Elevated liver enzymes R74.8 Chronic hypertension affecting O10.919 Thyroid disease E07.9 Obesity affecting in second trimester, unspecified obesity type O99.212 Obesity type affecting : unspecified obesity Trimester: second trimester 36 weeks gestation of Z3A.36 Weeks of gestation: 36 weeks Rh negative status during in second trimester O26.892; Z67.91 Trimester: second trimester Supervision of high risk in third trimester O09.93 Trimester: third trimester Thyroid disease affecting O99.280; E07.9 Fatigue, unspecified type R53.83 Fatigue type: unspecified CPT Codes Non-Stress Test (14184) Assessment and Plan Assessment and Plan (1) Antepartum variable deceleration: Status: Acute Comment: BPP 03/30 and reassuring NST for 06/01. d/c home (2) Anemia in preg-unspec: Status: Acute Qualifiers: Trimester: second trimester Qualified Code(s): O99.012 - Anemia complicating , second trimester Comment: SlowFe (3) Elevated liver enzymes: Status: Acute Comment: mild. decreasing. (4) Chronic hypertension affecting : Status: Chronic Comment: increased labetalol to 200mg Tid caused near syncope. Can't swallow procardia. Labetalol 100mg tid.RTO 1 wk BP check. MFM consult. Misses doses/discussed importance. No headache/vision changes. baseline pec labs asa 81mg at 10 weeks. 32 wk:NST and BPP weekly plus Growth Q4wk mfm for anatomy;03/31: 32 w US:96% AC, 84% EFW 03/31:vomited labetalol. Will repeat dose and call BP readings:132/83 (5) Thyroid disease: Status: Acute Comment: not on any medications, was on previous during surrogacy. (6) Obesity affecting : Status: Acute Qualifiers: Obesity type affecting : unspecified obesity Trimester: second trimester Qualified Code(s): O99.212 - Obesity complicating , second trimester Comment: HgbA1c (7) : Status: Acute Qualifiers: Weeks of gestation: 36 weeks Qualified Code(s): Z3A.36 - 36 weeks gestation of Comment: NIPT low risk(NO GENDER) carrier neg. . nl anatomy. (8) Rh negative status during : Status: Acute Qualifiers: Trimester: second trimester Qualified Code(s): O26.892 - Other specified related conditions, second trimester; Z67.91 - Unspecified blood type, Rh negative Comment: Rhogam @ 28 wks & PRN Bleeding. Baby is Rh- per Stephy results (9) Supervision of high-risk : Status: Acute Qualifiers: Trimester: third trimester Qualified Code(s): O09.93 - Supervision of high risk , unspecified, third trimester Comment: [id number](1 child was surrogate),GLENN 05/21/25, Dominic Melendez, ANTIONE Martins (10) Thyroid disease affecting : Status: Acute Comment: normal labs (11) Fatigue: Status: Acute Qualifiers: Fatigue type: unspecified Qualified Code(s): R53.83 - Other fatigue Orders: Orders POC Urinalysis 2 Dip (Clinic) Today OB NST Today O09.93 - Supervision of high risk , unspecified, third trimester, O10.919 - Unspecified pre-existing hypertension complicating , unspecified trimester, O99.212 - Obesity complicating , second trimester Culture, Group B Streptococcus Today O09.93 - Supervision of high risk , unspecified, third trimester, Z3A.36 - 36 weeks gestation of 04/28/25 1346 s CNM> Date _ Joyce Bolanos CNM Cosigner Signature: Date (if applicable) CC: ~ [facility]06-30-2025 Progress note [facility] Medical Records Department [address] [place] [address] OB Triage Progress Note 04/21/25 1605 MR#: [id number] Acct: [id number] Name: MICHELINE RUSSO Rep #:[id number] : 1995 30 From: Joyce Bolanos CNM PCP: DAI Bledsoe Status:REG Aby Calloway DOS: Location: [place] [id number] Progress Notes Date of Service: 04/21/25 Progress Note: Patient presents for triage evaluation secondary to variable in office on NST at35.5 weeks FHT: 130 Moderate variability reactive no decelerations category I tracing [place]: no Contractions Assessment and plan: BPP 6/8 with Reactive NST on unit for total of 06/01, reassuring maternal and status patient discharged to home to follow-up in office. See problem list details for additional plan information. Charges/Coding Multi Select Codes Urinary/Genital Urinary/Genital CPT Codes: 49400-57 non-stress test Interp Assessment & Plan (1) Anemia in preg-unspec: QUALIFIERS: Trimester: second trimester Qualified Code(s): O99.012 - Anemia complicating ,second trimester COMMENT: SlowFe (2) Antepartum variable deceleration: COMMENT: BPP 6/8 and reassuring NST for 06/01. d/c home (3) Elevated liver enzymes: COMMENT: mild. decreasing. (4) Chronic hypertension affecting : COMMENT: increased labetalol to 200mg Tid caused near syncope. Can't swallow procardia. Labetalol 100mg tid. RTO 1 wk BP check. MFM consult. Misses doses/discussed importance. No headache/vision changes. baseline pec labs asa 81mg at 10 weeks. 32 wk:NST and BPP weekly plus Growth Q4wk mfm for anatomy;03/31: 32 w US:96% AC, 84% EFW 03/31:vomited labetalol. Will repeat dose and call BP readings:132/83 (5) Thyroid disease: COMMENT: not on any medications, was on previous during surrogacy. (6) Obesity affecting : QUALIFIERS: Trimester: second trimester Obesity type affecting : unspecified obesity Qualified Code(s): O99.212 - Obesity complicating , second trimester COMMENT: HgbA1c (7) : QUALIFIERS: Weeks of gestation: 35 weeks Qualified Code(s): Z3A.35 - 35 weeks gestation of COMMENT: NIPT low risk(NO GENDER) carrier neg. . nl anatomy. (8) Rh negative status during : QUALIFIERS: Trimester: second trimester Qualified Code(s): O26.892 - Other specified related conditions, second trimester; Z67.91- Unspecified blood type, Rh negative COMMENT: Rhogam @ 28 wks & PRN Bleeding. Baby is Rh- per Stephy results (9) Supervision of high-risk : QUALIFIERS: Trimester: third trimester Qualified Code(s): O09.93 - Supervision of high risk , unspecified, third trimester COMMENT: [id number](1 child was surrogate),GLENN 05/21/25, Dominic Melendez BF Jordon (10) Thyroid disease affecting : COMMENT: normal labs (11) Fatigue: QUALIFIERS: Fatigue type: unspecified Qualified Code(s): R53.83 -Other fatigue 04/21/25 1607 s CNM> Date _ Joyce Bolanos CNM Cosign Signature (if applicable): Date CC: KATY Bolanos; OR NURSE MANAGER-C Rachel Bryant ~ Signed [facility]06-30-2025 [facility] [address], [place] [address] OFFICE VISIT Date of Service: 04/21/25 MR#: [id number] Acct: [id number] Name: MICHELINE RUSSO Rep #: [id number] : 1995 Provider: KATY Bolanos Age/Sex: 30/F [place] [facility] [place]: Signed with Addenda ADDENDUM by KATY Bolanos on 04/21/25 at 1353 Office Procedure Documentation entered by Joyce Bolanos CNM 04/21/25 13:53: Non-stress Test Non-Stress Test Indications for Monitoring: Yes hypertension Heart Rate Baseline: 135 Heart Rate Variability: moderate Movement: Present Heart Rate Accelerations: Present Decelerations: Absent Contractions: Absent Impression: Yes Reactive Non-Stress Test 04/21/25 1353 s LIZETHM> Date _ Joyce Bolanos CNM cc: ~* Signed Intake Vital Signs 02/24/25 13:05 04/14/25 11:40 04/21/25 13:19 Height 5 ft 4 in 5 ft 4 in 5 ft 4 in Weight: 198 lb BMI 34.0 BP 122/79 H Blood Pressure Location Rt brachial Position Sitting Pulse 71 Pulse Source Monitor Intake Visit Reasons: 36 wk ob/nst Poker Manager Required: No Accompanied by: Significant Other Is patient in pain?: No Feel stressed/tense/nervous/anxious/difficulty sleeping: not at all Allergies No Known Allergies Allergy (Verified 04/21/25 13:22) Medications ?Medication ?Instructions ?Recorded ?Confirmed ?Type multivit-min no.71-iron fum 28 cap PO 10/10/24 5 History mg-folate no.1 1 mg-dha 300 mg capsule (PNV-[place]) labetalol 200 mg tablet 100 mg PO TID 10/25/2404/21 History aspirin 81 mg tablet 81 mg PO QDAY 04/21/2504/21 History Last Menstrual Period: 08/14/24 Zika: Zika virus screening: Negative : No PFSH PFSH Medical History Former smoker, stopped smoking in distant past Seasonal allergies Ovarian cyst Hypertension Thyroid disease Anemia History of hemorrhoids Shortness of breath Surgical History History of appendectomy S/P wisdom tooth extraction No significant past surgical history Family History Father Myocardial infarction Grandfather Myocardial infarction Hypertension Uncle Myocardial infarction Mother Hypertension Social History adopted: No household members: significant other and children housing: house number of children: 2 current occupational status: employed current occupation: [employer] pets and animals: Yes (Avoids litterbox) pets and animals: cat(s) history of recent travel: No sexually active: Yes Smoking Status: Former smoker how long ago did patient quit smokinyears ago alcohol intake: current alcohol intake frequency: holidays/special occasions only details: not while substance use type: does not use well-balanced diet: daily or most days caffeine: No eating out: 1-3 times/week during the past year weight has: remained stable what type of physical activity do you participate in: none pelon/scientology: None seatbelt use: always do you feel safe at home: Yes additional social history: BF 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 Date Name GA/Weeks Outcome Route Bth Weight Infant Gen Labor Lgth Anesthesia Del Locatn Provider FOB Unknown 2013-Serge 40 live - full term 6lbs 15o Male none [facility] Unknown 2016-Dominic 40 live - full term 8lbs 7o Male none [facility] Unknown 2020 Miscarriage 7 spontaneous 11/08/19 surrogate live - full term [facility] Dr. Abby Carreon Delivery Date: 11/08/19 Last Updated by: Maribel Clark Surrogate HPI 36 wk ob/nst Details: MICHELINE RUSSO is a 30 year old who presents for routine OB visit. OB Visit GLENN Calculator Estimated Delivery Date Method Current WG Current Estimate 05/21/25 LMP (Certain) 35w 5d Expected Delivery Route/Plan Labor Preferences- CB/BF classes: no labor support person: Dave labor intervention preferences: [] pain management options preferred: limited cut cord/dad catch: yes : yes PP control planned: discussed discussed possible routes of delivery and associated risks: [] special requests: [] Specific Issue/Plans Covid status: [] Flu vaccine: [] Tdap vaccine: [] Rhogam: NA, baby Rh neg LARC form signed: yes Problem list reviewed and updated with the most current plan of care details and appropriate ordersplaced. Relevant counseling for the gestational age provided. Continue routine care and follow up unless otherwise noted in visit notes/problem list details Initial Weight: 187 lb Date -?-?-?-?-?-?-?-?-?-?-?-?- EGA Weight BP Urine Prot -?-?-?-?-?-?-?-?-?-?-?-?- Glucose FHR FuHt Pres Dilation -?-?-?-?-?-?-?-?-?-?-?-?- Effaced St Visit Note 10/11/24 -?-?-?-?-?-?-?-?-?-?-?-?- 8w 2d 187 lb (+0 oz) 143/84 -?-?-?-?-?-?-?-?-?-?-?-?- 186 -?-?-?-?-?-?-?-?-?-?-?-?- LC- CRL 1.47 con with LMP. desires nipt. thyroid normal, no longer on medications.chronic htn on labetolol. 11/06/24 -?-?-?-?-?-?-?-?-?-?-?-?- 12w 0d 189 lb (+2 lb) 141/94 Negative -?-?-?-?-?-?-?-?-?-?-?-?- Negative -?-?-?-?-?-?-?-?-?-?-?-?- JV- pt here for nursing visit. still with elevated pressures. Starting procardia and close follow up. pt states that she has been on 5 or 6 different blood pressure medications. when she goes above 100 of labetalol her pressure drops too low. if now improvement with procardia will need to consult cardiology or at least primary care for bp assistance. 11/13/24 -?-?-?-?-?-?-?-?-?-?-?-?- 13w 0d 190 lb (+3 lb) 144/91 Negative -?-?-?-?-?-?-?-?-?-?-?-?- Negative 166 -?-?-?-?-?-?-?-?-?-?-?-?- MH-No VB. Br US confirm FHT. Not taking procardia/can't swallow it. States home BPs nl when takes labetalol 100mg tid but missed dose today. Had CMP per employee health todayand minimally elevated AST/ALT. Stressed importance of tid dosing and risks of uncontrolled HTN. MFM consult. RTO 1 week 12/12/24 -?-?-?-?-?-?-?-?-?-?-?-?- 17w 1d 187 lb 4 oz (+4 oz) 123/77 Negative -?-?-?-?-?-?-?-?-?-?-?-?- Negative 150 -?-?-?-?-?-?-?-?-?-?-?-?- SM- no vb lof cr amping 01/09/25 -?-?-?-?-?-?-?-?-?-?-?-?- 21w 1d 191 lb (+4 lb) 135/86 Negative -?-?-?-?-?-?-?-?-?-?-?-?- Negative 151 -?-?-?-?-?-?-?-?-?-?-?-?- JV- no complaint s today. rpt cmp and cbc today. lft's have been trending down. 02/03/25 -?-?-?-?-?-?-?-?-?-?-?-?- 24w 5d 191 lb 6 oz (+4 lb 6 oz) 126/84 Negative -?-?-?-?-?-?-?-?-?-?-?-?- Negative 160 25 -?-?-?-?-?-?-?-?-?-?-?-?- KW- no vb/lof/ct x. good fm. is having some lower BPs (90/60) at home but not symptomatic. pepcid for heart burn. glucose next visit. 02/24/25 -?-?-?-?-?-?-?-?-?-?-?-?- 27w 5d 190 lb 4 oz (+3 lb 4 oz) 124/77 Negative -?-?--?-?-?-?-?-?-?-?-?-?- Negative 154 28 -?-?-?-?-?-?-?-?-?-?-?-?- MH-No VB. Good F m 28 wk labs pending. Larc. Discussed need for weekly NST, BPP and also growth US Q4wk at 32 wk. 03/12/25 -?-?-?-?-?-?-?-?-?-?-?-?- 30w 0d 196 lb 2 oz (+9 lb 2 oz) 138/84 Negative -?-?-?-?-?-?-?-?-?-?-?-?- Negative 145 30 -?-?-?-?-?-?-?-?-?-?-?-?- JV-no lof, vag b leeding or dec fm.needs growth us 32 and 36 weeks. still on labetalol.importance of iol discussed and she wants to try to avoid that. Will look forward to MFM explaining to her. JV-no lof, vag bleeding or d ec fm.needs growth us 32 and 36 weeks. still on labetalol.importance of iol discussed and she wants to try to avoid that. Will look forward to MFM explaining to her. needs tsh next visit 03/28/25 -?-?-?-?-?-?-?-?-?-?-?-?- 32w 2d 194 lb 2 oz (+7 lb 2 oz) 132/77 Trace -?-?-?-?-?-?-?-?-?-?-?-?- 250 g/dL 140 -?-?-?-?-?-?-?-?-?-?-?-?- KW- NST only. ur ine very concentrated and reports little to drink today. 03/31/25 -?-?-?-?-?-?-?-?-?-?-?-?- 32w 5d 195 lb 2 oz (+8 lb 2 oz) 144/91 138/94 Negative -?-?-?-?-?-?-?-?-?-?-?-?- Negative 140 -?-?-?-?-?-?-?-?-?-?-?-?- MH-NST only reac tive. States vomited labetalol this am. States more nausea in morning. Taking pepcid AM only and is controlling her heartburn. Discussed increased bile may cause nausea. Could also consider zofran 30 m in prior to taking labetalol. She will think about it. Reviewed with BENITA:patient will take another dose of labetalol and call in BP today. Denies headache orvision changes. 04/08/25 -?-?-?-?-?-?-?-?-?-?-?-?- 33w 6d 197 lb 8 oz (+10 lb 8 oz) 131/89 Negative -?-?-?-?-?-?-?-?-?-?-?-?- Negative 130 34 Cephalic -?-?-?-?-?-?-?-?-?-?-?-?- JV-patient has c omplaint today of vaginal irritation. She tried monistat and it burned so she discontinued it. JV-patient has complaint tohali ay of vaginal irritation. She tried monistat and it burned so she discontinued it. on exam there is some white discharge. she also complains of pain onher tongue. starting diflucan 150 for 2 doses, 3 days apart. 04/14/25 -?-?-?-?-?-?-?-?-?-?-?-?- 34w 5d 198 lb 4 oz (+11 lb 4 oz) 132/87 Negative -?-?-?-?-?-?-?-?-?-?-?-?- Negative 140 Cephalic -?-?-?-?-?-?-?-?-?-?-?-?- SM- no vb lof go od fm no regular ctx reviewed IOL plan 04/21/25 -?-?-?-?-?-?-?-?-?-?-?-?- 35w 5d 198 lb (+11 lb) 122/79 Negative -?-?-?-?-?-?-?-?-?-?-?-?- Negative 135 -?-?-?-?-?-?-?-?-?--?-?-?- KW- no vb/lof/ct x. good fm. NST reactive but did have one decel. to wp for BPP. discussed 38 IOL with SM last visit per patient. ACOG First Trimester First Trimester: Discussed Second Trimester Second Trimester: Signs and Symptoms of Labor, Selecting a care provider, Reproductive Life Planning & Contreception, Care Planning, Tobacco Cessation, Depression/Anxiety and Intimate Partner Violence Third Trimester Third Trimester: Pain Management Plans, Labor support person(s), Immediate Larc, Movement Monitoring and Infant Feeding No ; Discussed Trial of Labor after Counseling and Discussed Circumcision preference ROS Const Reports system reviewed and no additional complaints, except as documented Eyes Reports system reviewed and no additional complaints, except as documented ENT Reports system reviewed and no additional complaints, except as documented Card Reports system reviewed and no additional complaints, except as documented Resp Reports system reviewed and no additional complaints, except as documented GI Reports system reviewed and no additional complaints, except as documented, Denies nausea and Denies vomiting Reports system reviewed and no additional complaints, except as documented Musc Reports system reviewed and no additional complaints, except as documented Skin/Breast Reports system reviewed and no additional complaints, except as documented Neuro Yes system reviewed and no additional complaints, except as documented Psych Reports system reviewed and no additional complaints, except as documented Endo Reports system reviewed and no additional complaints, except as documented Malik/Lymph Reports system reviewed and no additional complaints, except as documented Aller/Immun Reports system reviewed and no additional complaints, except as documented Exam Const General: cooperative, healthy appearing and no acute distress Orientation: alert, awake and oriented x3 Neck Neck: normal visual inspection and full ROM Resp Effort & Inspection: normal respiratory effort, able to speak in complete sentences and symmetric chest movement GI Inspection: normal to inspection Palpation: soft and other Other: gravid Skin General: no rashes or lesions noted Neuro General: patient alert, patient awake and patient oriented x3 Cognition: normal cognition Speech: speech normal Gait: normal gait Motor: muscle tone normal throughout Extrem General: normal to inspection and full ROM Psych Appearance: grossly normal Mental Status: mental status grossly normal Mood: congruent mood Affect: normal affect Speech and Movement: speech and movement normal Attitude: cooperative Thought Process: normal Thought Content: normal Judgment: judgment good Results POC Urinalysis 2 Dip (Clinic) Office Urine Glucose Negative Last Edit by Micheline Giles on 04/21/25 13 :32 Office Urine Protein Negative Last Edit by Micheline Giles on 04/21/25 13 :32 Coding Level of Care Code OB Routine Diagnoses Anemia during in second trimester O99.012 Trimester: second trimester Elevated liver enzymes R74.8 Chronic hypertension affecting O10.919 Thyroid disease E07.9 Obesity affecting in second trimester, unspecified obesity type O99.212 Obesity type affecting : unspecified obesity Trimester: second trimester 35 weeks gestation of Z3A.35 Weeks of gestation: 35 weeks Rh negative status during in second trimester O26.892; Z. Trimester: second trimester Supervision of high risk in third trimester O09.93 Trimester: third trimester Thyroid disease affecting O99.280; E07.9 Fatigue, unspecified type R53.83 Fatigue type: unspecified Assessment and Plan Assessment and Plan (1) Anemia in preg-unspec: Status: Acute Qualifiers: Trimester: second trimester Qualified Code(s): O99.012 - Anemia complicating , second trimester Comment: SlowFe (2) Elevated liver enzymes: Status: Acute Comment: mild. decreasing. (3) Chronic hypertension affecting : Status: Chronic Comment: increased labetalol to 200mg Tid caused near syncope. Can't swallow procardia. Labetalol 100mg tid.RTO 1 wk BP check. MFM consult. Misses doses/discussed importance. No headache/vision changes. baseline pec labs asa 81mg at 10 weeks. 32 wk:NST and BPP weekly plus Growth Q4wk mfm for anatomy;03/31: 32 w US:96% AC, 84% EFW 03/31:vomited labetalol. Will repeat dose and call BP readings:132/83 (4) Thyroid disease: Status: Acute Comment: not on any medications, was on previous during surrogacy. (5) Obesity affecting : Status: Acute Qualifiers: Obesity type affecting : unspecified obesity Trimester: second trimester Qualified Code(s): O99.212 - Obesity complicating , second trimester Comment: HgbA1c (6) : Status: Acute Qualifiers: Weeks of gestation: 35 weeks Qualified Code(s): Z3A.35 - 35 weeks gestation of Comment: NIPT low risk(NO GENDER) carrier neg. . nl anatomy. (7) Rh negative status during : Status: Acute Qualifiers: Trimester: second trimester Qualified Code(s): O26.892 - Other specified related conditions, second trimester; Z - Unspecified blood type, Rh negative Comment: Rhogam @ 28 wks & PRN Bleeding. Baby is Rh- per Stephy results (8) Supervision of high-risk : Status: Acute Qualifiers: Trimester: third trimester Qualified Code(s): O09.93 - Supervision of high risk , unspecified, third trimester Comment: [id number](1 child was surrogate),GLENN 05/21/25, Dominic Melendez BF Jordon (9) Thyroid disease affecting : Status: Acute Comment: normal labs (10) Fatigue: Status: Acute Qualifiers: Fatigue type: unspecified Qualified Code(s): R53.83 - Other fatigue Orders: Orders POC Urinalysis 2 Dip (Clinic) Today OB NST Today Z3A.35 - 35 weeks gestation of Plan Details Additional Comments: ACOG trimester education reviewed and updated. see problem list details for updated plan management information and see below for orders placed atthis visit. GA appropriate handout given. 04/21/25 1352 s KATY> Date _ Joyce Bolanos CNM Cosigner Signature: Date (if applicable) CC: ~ [facility]06-20-2025 [facility] CONSULTATION Referring Provider Tiffanie Lowery, [address] [address] ASSESSMENT AND RECOMMENDATIONS 1. Chronic HTN We discussed concerns regarding HTN and including risk of developing preeclampsia, growth restriction, abruption, stillbirth, iatrogenic PTD. With regard to chronic hypertension, we do know that approximately 70-80% of women will have a mild form of disease, with blood pressures less than 160/110. Certainly, medical treatment of severely elevated blood pressures in has been associated with improved outcomes. Current guidelines indicate medical treatment of mildly elevated blood pressures, with a goal blood pressure less than 140/90, is also associated with improved outcomes -- composite of preeclampsia with severe features occurring up to 2 weeks after , medically indicated before 35 weeks' gestation (i.e., because of maternal orfetal illness, not spontaneous labor or membrane rupture), placental abruption, or or . Overall Recommendations (modified given GA): -- goal to maintain blood pressure less than 140/90. We expect overall risk of developing preeclampsia to be in the range of 10-30% with adequate treatment, and growth restriction to be about 10%. -- We recommended to monitor BP at home. -- We discussed completion of baseline preeclampsia laboratory evaluation, including a urine protein assessment, if not previously completed. -- serial growth every 4 weeks; this can be accomplished with her primary obstetrical provider -- twice weekly ANFS given medication needed for control; this can be accomplished with her primary obstetrical provider -- Delivery during week 38, or as clinically indicated. -- Discuss delivery timing and induction options, considering her preference for natural delivery. -- Encourage ongoing conversation about plan and safety measures with OB team. Treatment for Mild Chronic Hypertension during ; January 22, 2022. DOI: [id number] Iona RODRIGUEZA FACOG Maternal- Medicine SUBJECTIVE Micheline Russo is a 30 y.o. who presents at 34w2d for discussion of cHTN and . She presents without other complaints. She is has never had hypertension during . This started after her delivery in 2019 -- she was a surrogate at that time. She developed high blood pressure in May 2020, after her last , which she delivered in October 2019. She has been on labetalol for the past two years, initially taking 100 mg twice daily, but increased to three times daily since becoming . Her blood pressure has been well-controlled on this regimen, and she has not experienced any severe symptoms such as headaches or vision changes. She is concerned about the potential impact of high blood pressure on growth, as it can affect placental blood flow and lead to growth disorders. However, her current shows normal growth, with the baby growing from five pounds to six and a half pounds over the past three weeks. She has been undergoing weeklynon-stress tests and growth scans to monitor her condition. Today, she is here for an evaluation of her amniotic fluid and overall growth. She otherwise denies LOF/CTX/VB. She is without preE complaints. We performed a detailed ROS including screening for general, gastrointestinal, respiratory, cardiac, renal, urological symptoms and the patient has no pertinent positives on screen. OB History Para Term AB Living 5 3 3 1 3 SAB IAB Ectopic Multiple Live Births 1 3 # Outcome Date GA Lbr Fer/2nd Weight Sex Type Anes PTL Lv 5 Current 4 SAB 2020 7w0d 3 Term 11/08/19 40w0d Vag-Spont IMER Comments: SURROGATE 2 Term 2016 40w0d 3.827 kg M Vag-Spont N IMER 1 Term 2013 40w0d 3.147 kg M Vag-Spont IMER Problem List[1] Past Medical History: Diagnosis Date Asymptomatic varicose veins of unspecified lower extremity varicose veins in Hypertension Labetalol 100mg TID Rh negative, antepartum Surrogate Thyroid disease with previous . No current issues. Past Surgical History: Procedure Laterality Date APPENDECTOMY OVARIAN CYST REMOVAL WISDOM TOOTH EXTRACTION Current Medications[2] Allergies[3] Social History Socioeconomic History Marital status: Spouse name: Not on file Number of children: Not on file Years of education: Not on file Highest education level: Not on file Occupational History Not on file Tobacco Use Smoking status: Former Current packs/day: 0.00 Types: Cigarettes Quit date: 2013 Years since quittin.4 Smokeless tobacco: Never Substance and Sexual Activity Alcohol use: Not Currently Drug use: Never Sexual activity: Not on file Other Topics Concern Not on file Social Histor (more content not included)...[facility]06-17-2025 [facility] [address], [address] [place] [address] OFFICE VISIT Date of Service: 04/08/25 MR#: [id number] Acct: [id number] Name: MICHELINE RUSSO Rep #: [id number] : 1995 Provider: Dr. Monserrat Lepe DO Age/Sex: 30/F [place] [facility] [place] Status: Signed Intake Vital Signs 02/24/25 13:05 03/31/25 11:12 04/08/25 10:35 Height 5 ft 4 in 5 ft 4 in 5 ft 4 in Weight: 197 lb 8 oz BMI 33.9 BP 131/89 H Intake Visit Reasons: 34 wk ob/nst Poker Manager Required: No Is patient in pain?: No Allergies No Known Allergies Allergy (Verified 04/08/25 10:35) Medications ?Medication ?Instructions ?Recorded ?Confirmed ?Type multivit-min no.71-iron fum 28 cap PO 10/10/24 5 History mg-folate no.1 1 mg-dha 300 mg capsule (PNV-[place]) labetalol 200 mg tablet 100 mg PO TID 10/25/2404/08 History famotidine 20 mg tablet (Pepcid) 20 mg PO BID #60 tabs 03/12/25 04/08/25 Rx fluconazole 150 mg tablet 150 mg PO Q3D 2 doses #2 tab s 04/08/25 04/08/25 Rx Last Menstrual Period: 08/14/24 Zika: Zika virus screening: Negative : No PFSH PFSH Medical History Former smoker, stopped smoking in distant past Seasonal allergies Ovarian cyst Hypertension Thyroid disease Anemia History of hemorrhoids Shortness of breath Surgical History History of appendectomy S/P wisdom tooth extraction No significant past surgical history Family History Father Myocardial infarction Grandfather Myocardial infarction Hypertension Uncle Myocardial infarction Mother Hypertension Social History adopted: No household members: significant other and children housing: house number of children: 2 current occupational status: employed current occupation: [employer] pets and animals: Yes (Avoids litterbox) pets and animals: cat(s) history of recent travel: No sexually active: Yes Smoking Status: Former smoker how long ago did patient quit smokinyears ago alcohol intake: current alcohol intake frequency: holidays/special occasions only details: not while substance use type: does not use well-balanced diet: daily or most days caffeine: No eating out: 1-3 times/week during the past year weight has: remained stable what type of physical activity do you participate in: none pelon/scientology: None seatbelt use: always do you feel safe at home: Yes additional social history: BF Eliezer- 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 Date Name GA/Weeks Outcome Route Bth Weight Gen Labor Lgth Anesthesia Del Locatn Provider FOB Unknown 2013-Serge 40 live - full term 6lbs 15o Male none [facility] Unknown 2016-Dominic 40 live - full term 8lbs 7o Male none [facility] Unknown 2020 Miscarriage 7 spontaneous 11/08/19 surrogate live - full term [facility] Dr. Abby Carreon Delivery Date: 11/08/19 Last Updated by: Maribel Clark Surrogate HPI 34 wk ob/nst Details: MICHELINE RUSSO is a 30 year old who presents for routine OB visit. OB Visit GLENN Calculator Estimated Delivery Date Method Current WG Current Estimate 05/21/25 LMP (Certain) 33w 6d Expected Delivery Route/Plan Labor Preferences- CB/BF classes: no labor support person: Dave labor intervention preferences: [] pain management options preferred: limited cut cord/dad catch: yes : yes PP control planned: discussed discussed possible routes of delivery and associated risks: [] special requests: [] Specific Issue/Plans Covid status: [] Flu vaccine: [] Tdap vaccine: [] Rhogam: NA, baby Rh neg LARC form signed: yes Problem list reviewed and updated with the most current plan of care details and appropriate ordersplaced. Relevant counseling for the gestational age provided. Continue routine care and follow up unless otherwise noted in visit notes/problem list details Initial Weight: 187 lb Date -?-?-?-?-?-?-?-?-?-?-?-?- EGA Weight BP Urine Prot -?-?-?-?-?-?-?-?-?-?-?-?- Glucose FHR FuHt Pres Dilation -?-?-?-?-?-?-?-?-?-?-?-?- Effaced St Visit Note 10/11/24 -?--?-?-?-?-?-?-?-?-?-?-?- 8w 2d 187 lb (+0 oz) 143/84 -?-?-?-?-?-?-?-?-?-?-?-?- 186 -?-?-?-?-?-?-?-?-?-?-?-?- LC- CRL 1.47 con with LMP. desires nipt. thyroid normal, no longer on medications.chronic htn on labetolol. 11/06/24 -?-?-?-?-?-?-?-?-?-?-?-?- 12w 0d 189 lb (+2 lb) 141/94 Negative -?-?-?-?-?-?-?-?-?-?-?-?- Negative -?-?-?-?-?-?-?-?-?-?-?-?- JV- pt here for nursing visit. still with elevated pressures. Starting procardia and close follow up. pt states that she has been on 5 or 6 different blood pressure medications. when she goes above 100 of labetalol her pressure drops too low. if now improvement with procardia will need to consult cardiology or at least primary care for bp assistance. 11/13/24 -?-?-?-?-?-?-?-?-?-?-?-?- 13w 0d 190 lb (+3 lb) 144/91 Negative -?-?-?-?-?-?-?-?-?-?-?-?- Negative 166 -?-?-?-?-?-?-?-?-?-?-?-?- MH-No VB. Br US confirm FHT. Not taking procardia/can't swallow it. States home BPs nl when takes labetalol 100mg tid but missed dose today. Had CMP per employee health todayand minimally elevated AST/ALT. Stressed importance of tid dosing and risks of uncontrolled HTN. MFM consult. RTO 1 week 12/12/24 -?-?-?-?-?-?-?-?-?-?-?-?- 17w 1d 187 lb 4 oz (+4 oz) 123/77 Negative -?-?-?-?-?-?-?-?-?-?-?-?- Negative 150 -?-?-?-?-?-?-?-?-?-?-?-?- SM- no vb lof cr amping 01/09/25 -?-?-?-?-?-?-?-?-?-?-?-?- 21w 1d 191 lb (+4 lb) 135/86 Negative -?-?-?-?-?-?-?-?-?-?-?-?- Negative 151 -?-?-?-?-?-?-?-?-?-?-?-?- JV- no complaint s today. rpt cmp and cbc today. lft's have been trending down. 02/03/25 -?-?-?-?-?-?-?-?-?-?-?-?- 24w 5d 191 lb 6 oz (+4 lb 6 oz) 126/84 Negative -?-?-?-?-?-?-?-?-?-?-?-?- Negative 160 25 -?-?-?-?-?-?-?-?-?-?-?-?- KW- no vb/lof/ct x. good fm. is having some lower BPs (90/60) at home but not symptomatic. pepcid for heart burn. glucose next visit. 02/24/25 -?-?-?-?-?-?-?-?-?-?-?-?- 27w 5d 190 lb 4 oz (+3 lb 4 oz) 124/77 Negative -?-?-?-?-?-?-?-?-?-?-?-?- Negative 154 28 -?-?-?-?-?-?-?-?-?-?-?-?- MH-No VB. Good F m 28 wk labs pending. Larc. Discussed need for weekly NST, BPP and also growth US Q4wk at 32 wk. 03/12/25 -?-?-?-?-?-?-?-?-?-?--?-?- 30w 0d 196 lb 2 oz (+9 lb 2 oz) 138/84 Negative -?-?-?-?-?-?-?-?-?-?-?-?- Negative 145 30 -?-?-?-?-?-?-?-?-?-?-?-?- JV-no lof, vag b leeding or dec fm.needs growth us 32 and 36 weeks. still on labetalol.importance of iol discussed and she wants to try to avoid that. Will look forward to MFM explaining to her. JV-no lof, vag bleeding or d ec fm.needs growth us 32 and 36 weeks. still on labetalol.importance of iol discussed and she wants to try to avoid that. Will look forward to MFM explaining to her. needs tsh next visit 03/28/25 -?-?-?-?-?-?-?-?-?-?-?-?- 32w 2d 194 lb 2 oz (+7 lb 2 oz) 132/77 Trace -?-?-?-?-?-?-?-?-?-?-?-?- 250 g/dL 140 -?-?-?-?-?-?-?-?-?-?-?-?- KW- NST only. ur ine very concentrated and reports little to drink today. 03/31/25 -?-?-?-?-?-?-?-?-?-?-?-?- 32w 5d 195 lb 2 oz (+8 lb 2 oz) 144/91 138/94 Negative -?-?-?-?-?-?-?-?-?-?-?-?- Negative 140 -?-?-?-?-?-?-?-?-?-?-?-?- MH-NST only reac tive. States vomited labetalol this am. States more nausea in morning. Taking pepcid AM only and is controlling her heartburn. Discussed increased bile may cause nausea. Could also consider zofran 30 m in prior to taking labetalol. She will think about it. Reviewed with BENITA:patient will take another dose of labetalol and call in BP today. Denies headache orvision changes. 04/08/25 -?-?-?-?-?-?-?-?-?-?-?-?- 33w 6d 197 lb 8 oz (+10 lb 8 oz) 131/89 Negative -?-?-?-?-?-?-?-?-?-?-?-?- Negative 130 34 Cephalic -?-?-?-?-?-?-?-?-?-?-?-?- JV-patient has c omplaint today of vaginal irritation. She tried monistat and it burned so she discontinued it. JV-patient has complaint tod ay of vaginal irritation. She tried monistat and it burned so she discontinued it. on exam there is some white discharge. she also complains of pain onher tongue. starting diflucan 150 for 2 doses, 3 days apart. ACOG First Trimester First Trimester: Discussed Second Trimester Second Trimester: Signs and Symptoms of Labor, Selecting a care provider, Reproductive Life Planning & Contreception, Care Planning, Tobacco Cessation, Depression/Anxiety and Intimate Partner Violence Third Trimester Third Trimester: Pain Management Plans, Labor support person(s), Immediate Larc, Movement Monitoring and Infant Feeding No ; Discussed Trial of Labor after Counseling and Discussed Circumcision preference Office Procedures Non-stress Test Non-Stress Test Indications for Monitoring: Yes hypertension Heart Rate Baseline: 130 Heart Rate Variability: moderate Movement: Present Heart Rate Accelerations: Present Decelerations: Absent Contractions: Absent Impression: Yes Reactive Non-Stress Test Results POC Urinalysis 2 Dip (Clinic) Office Urine Glucose Negative Last Edit by Maribel Clark on 04/08/25 10: 57 Office Urine Protein Negative Last Edit by Maribel Clark on 04/08/25 10: 57 Coding Level of Care Code OB Routine Diagnoses Anemia during in second trimester O99.012 Trimester: second trimester Elevated liver enzymes R74.8 Chronic hypertension affecting O10.919 Thyroid disease E07.9 Obesity affecting in second trimester, unspecified obesity type O99.212 Obesity type affecting : unspecified obesity Trimester: second trimester 33 weeks gestation of Z3A.33 Weeks of gestation: 33 weeks Rh negative status during in second trimester O26.892; Z67.91 Trimester: second trimester Supervision of high risk in third trimester O09.93 Trimester: third trimester Thyroid disease affecting O99.280; E07.9 Fatigue, unspecified type R53.83 Fatigue type: unspecified CPT Codes Non-Stress Test (24356) Assessment and Plan Assessment and Plan (1) Anemia in preg-unspec: Status: Acute Qualifiers: Trimester: second trimester Qualified Code(s): O99.012 - Anemia complicating , second trimester Comment: SlowFe (2) Elevated liver enzymes: Status: Acute Comment: mild. decreasing. (3) Chronic hypertension affecting : Status: Chronic Comment: increased labetalol to 200mg Tid caused near syncope. Can't swallow procardia. Labetalol 100mg tid.RTO 1 wk BP check. MFM consult. Misses doses/discussed importance. No headache/vision changes. baseline pec labs asa 81mg at 10 weeks. 32 wk:NST and BPP weekly plus Growth Q4wk mfm for anatomy;03/31: 32 w US:96% AC, 84% EFW 03/31:vomited labetalol. Will repeat dose and call BP readings:132/83 (4) Thyroid disease: Status: Acute Comment: not on any medications, was on previous during surrogacy. (5) Obesity affecting : Status: Acute Qualifiers: Obesity type affecting : unspecified obesity Trimester: second trimester Qualified Code(s): O99.212 - Obesity complicating , second trimester Comment: HgbA1c (6) : Status: Acute Qualifiers: Weeks of gestation: 33 weeks Qualified Code(s): Z3A.33 - 33 weeks gestation of Comment: NIPT low risk(NO GENDER) carrier neg. . nl anatomy. (7) Rh negative status during : Status: Acute Qualifiers: Trimester: second trimester Qualified Code(s): O26.892 - Other specified related conditions, second trimester; Z67.91 - Unspecified blood type, Rh negative Comment: Rhogam @ 28 wks & PRN Bleeding. Baby is Rh- per Stephy results (8) Supervision of high-risk : Status: Acute Qualifiers: Trimester: third trimester Qualified Code(s): O09.93 - Supervision of high risk , unspecified, third trimester Comment: [id number](1 child was surrogate),GLENN 05/21/25, Dominic Melendez, ANTIONE Martins (9) Thyroid disease affecting : Status: Acute Comment: normal labs (10) Fatigue: Status: Acute Qualifiers: Fatigue type: unspecified Qualified Code(s): R53.83 - Other fatigue Orders: Orders POC Urinalysis 2 Dip (Clinic) Today OB NST Today O10.919 - Unspecified pre-existing hypertension complicating , unspecified trimester Medications: New fluconazole 150 mg PO Q3D 2 tabs 0RF 04/08/25 1124 e Velde DO> Date _ Tiffanie Aristidesnilam Velyonatan DO Cosigner Signature: Date (if applicable) CC: ~ [facility]06-09-2025 Radiology Diagnostic study note [facility] Imaging Services [address], [place] [address] OB Limited With Biometrics MR#: [id number] Acct: [id number] Name: MICHELINE RUSSO Rep #: [id number] : 1995 F 30 From: Ritesh Braun MD PCP: DAI Bledsoe Status: REG C KEVIN Study:OB Limited With Biometrics Date of Exam : 03/28/25 Exam# [id number] Ordering Dr: Antony Correa NP OR NURSE MANAGER-C PROCEDURE: OB LIMITED WITH BIOMETRICS 03/28/2025 REASON FOR EXAM: GROWTH TECHNIQUE: High resolution obstetric ultrasound performed using a 2D transducer. Standard views obtained, including biometry, anatomy survey, and Doppler studies. COMPARISON: None FINDINGS Number: 1 Position: Vertex Placental Position: Anterior and not low-lying. Placental Abnormalities: No evidence of previa. DIMENSIONS: Biparietal Diameter: 8.28 cm: 33 weeks and 2 days: 71.8 percentile/ Head Circumference: 30.06 cm: 33 weeks and 2 days: 40 percentile/ Abdominal Circumference: 30.71 cm: 34 weeks and 5 days: 96.5 percentile/ Femur Length: 6.31 cm: 32 weeks and 4 days: 47 percentile/ ESTIMATED WEIGHT: 2319 g plus/-348 g ESTIMATED WEIGHT PERCENTILE (24+ weeks): 87 ESTIMATED GESTATIONAL AGE: Baseline: 32 weeks and 2 days By Ultrasound: 32 weeks and 6 days ESTIMATED DATE OF DELIVERY: Baseline: May 21, 2025 By Ultrasound: May 17, 2025 BIOPHYSICAL ASSESSMENT: Amniotic Fluid Volume: 4.1 cm Amniotic Fluid Index: 14.7 (8-24 cm normal range) Cardiac Motion: 138 beats per minute (average) Trunk and Limb Motion: Present. MATERNAL ANATOMY: Adnexa: Neither maternal ovary is successfully identified. US/OB Limited With Biometrics IMPRESSION: Single live intrauterine gestation with a mean gestational age of 32 weeks and 6days. Reading Location: [place] [address] CC: DAI Bryant; DAI Correa ~ Manager Research And Development: Signed [facility]06-06-2025 Evaluation note* Diagnosis Onset Date Resolution Status Admit Date Thyroid disease acute March 28, 2025 8:57am Anemia in preg-unspec resolved Mar 8:57am Chronic hypertension affecting resolved March 28 8:57am Elevated liver enzymes resolved [facility] 2024 8:57am Fatigue resolved March 28, 2025 8:57am Obesity affecting resolved March 28, 2025 8:57am resolved March 28, 2025 8:57am Rh negative status during resolved March 28, 2025 8 :57am Supervision of high-risk resolved March 28, 2025 8 :57am Thyroid disease affecting resolved March 28, 2025 8 :57am Thyroid disease acute March 31, 2025 11:01am Anemia in preg-unspec resolved Mar 11:01am Chronic hypertension affecting resolved March 31 11:01am Elevated liver enzymes resolved [facility] 2024 11:01am Fatigue resolved March 31, 2025 11:01am Obesity affecting resolved March 31, 2025 11:01am resolved March 31, 2025 11:01am Rh negative status during resolved March 31, 2025 1 1:01am Supervision of high-risk resolved March 31, 2025 1 1:01am Thyroid disease affecting resolved March 31, 2025 1 1:01am Thyroid disease acute March 10:28am Anemia in preg-unspec resolved Mar 10:28am Chronic hypertension affecting resolved April 08 025 10:28am Elevated liver enzymes resolved 2024 10:28am Fatigue resolved April 08 10:28am Obesity affecting resolved April 08, 2025 10:28am resolved April 08 10:28am Rh negative status during resolved April 08, 2025 10:28am Supervision of high-risk resolved April 08, 2025 10:28am Thyroid disease affecting resolved April 08, 2025 10:28am Thyroid disease acute March 11:35am Anemia in preg-unspec resolved Mar 11:35am Chronic hypertension affecting resolved April 14 11:35am Elevated liver enzymes resolved 2024 11:35am Fatigue resolved April 14 11:35am Obesity affecting resolved April 14, 2025 11:35am resolved April 14 11:35am Rh negative status during resolved April 14, 2025 11:35am Supervision of high-risk resolved April 14, 2025 11:35am Thyroid disease affecting resolved April 14, 2025 11:35am Thyroid disease acute March 1:07pm Anemia in preg-unspec resolved Mar 1:07pm Chronic hypertension affecting resolved April 21 025 1:07pm Elevated liver enzymes resolved 2024 1:07pm Fatigue resolved April 21 1:07pm Obesity affecting resolved April 21, 2025 1:07pm resolved April 21 1:07pm Rh negative status during resolved April 21, 2025 1:07pm Supervision of high-risk resolved April 21, 2025 1:07pm Thyroid disease affecting resolved April 21, 2025 1:07pm Thyroid disease acute March 2:00pm Anemia in preg-unspec resolved Mar 2:00pm Antepartum variable deceleration resolved April 21, 2025 2:00pm Chronic hypertension affecting resolved April 21, 025 2:00pm Elevated liver enzymes resolved Ju ne 2024 2:00pm Fatigue resolved April 21 2:00pm Obesity affecting resolved April 21, 2025 2:00pm resolved April 21 2:00pm Rh negative status during resolved April 21, 2025 2:00pm Supervision of high-risk resolved April 21, 2025 2:00pm Thyroid disease affecting resolved April 21, 2025 2:00pm Thyroid disease acute April 28, 2025 1:05pm Anemia in preg-unspec resolved Apr 1:05pm Antepartum variable deceleration resolved April 28, 2025 1 :05pm Chronic hypertension affecting resolved April 28 1:05pm Elevated liver enzymes resolved Ju ly 2024 1:05pm Fatigue resolved April 28, 2025 1:05pm Obesity affecting resolved April 28, 2025 1:05pm resolved April 28, 2025 1:05pm Rh negative status during resolved April 28, 2025 1 :05pm Supervision of high-risk resolved April 28, 2025 1 :05pm Thyroid disease affecting resolved April 28, 2025 1 :05pm Thyroid disease acute April 12:27pm Anemia in preg-unspec resolved Apr 12:27pm Antepartum variable deceleration resolved May 05, 2025 12:27pm Chronic hypertension affecting resolved May 05, 025 12:27pm Elevated liver enzymes resolved Ju ly 2024 12:27pm Fatigue resolved May 05 12:27pm Obesity affecting resolved May 05, 2025 12:27pm resolved May 05 12:27pm Rh negative status during resolved May 05, 2025 12:27pm Supervision of high-risk resolved May 05, 2025 12:27pm Thyroid disease affecting resolved May 05, 2025 12:27pm Thyroid disease acute April 8:05am Anemia in preg-unspec resolved Apr 8:05am Chronic hypertension affecting resolved May 09, 025 8:05am Encounter for induction of labor resolved May 09, 2025 8:05am Obesity affecting resolved May 09, 2025 8:05am resolved May 09 8:05am Rh negative status during resolved May 09, 2025 8:05am Supervision of high-risk resolved May 09, 2025 8:05am Thyroid disease affecting resolved May 09, 2025 8:05am Vaginal delivery resolved April 8:05am Routine Follow-Up noneact john June 19, 2025 10:13am Contraceptive management acute July 17, 2025 8:54am [facility] Work Phone: [phone] 681-139406-06-2025 [facility] [address] [place] [address], [address] [place] [address] OFFICE VISIT Date of Service: 03/28/25 MR#: [id number] Acct: [id number] Name: MICHELINE RUSSO Rep #: [id number] : 1995 Provider: KATY Bolanos Age/Sex: 30/F [place] [facility] [place]: Signed Intake Vital Signs 03/12/25 11:48 03/24/25 15:03 03/28/25 08:59 Height 5 ft 4 in 5 ft 4 in 5 ft 4 in Weight: 194 lb 2 oz BMI 33.3 BP 132/77 H Intake Visit Reasons: NST per KW *growth US at 0800 Poker Manager Required: No Is patient in pain?: No Allergies No Known Allergies Allergy (Verified 03/28/25 08:59) Medications ?Medication ?Instructions ?Recorded ?Confirmed ?Type multivit-min no.71-iron fum 28 cap PO 10/10/24 5 History mg-folate no.1 1 mg-dha 300 mg capsule (PNV-[place]) labetalol 200 mg tablet 100 mg PO TID 10/25/2403/28 History famotidine 20 mg tablet (Pepcid) 20 mg PO BID #60 tabs 03/12/25 03/28/25 Rx Last Menstrual Period: 08/14/24 Zika: Zika virus screening: Negative : No Have you fallen in the past year?: No PFSH PFSH Medical History Former smoker, stopped smoking in distant past Seasonal allergies Ovarian cyst Hypertension Thyroid disease Anemia History of hemorrhoids Shortness of breath Surgical History History of appendectomy S/P wisdom tooth extraction No significant past surgical history Family History Father Myocardial infarction Grandfather Myocardial infarction Hypertension Uncle Myocardial infarction Mother Hypertension Social History adopted: No household members: significant other and children housing: house number of children: 2 current occupational status: employed current occupation: [employer] pets and animals: Yes (Avoids litterbox) pets and animals: cat(s) history of recent travel: No sexually active: Yes Smoking Status: Former smoker how long ago did patient quit smokinyears ago alcohol intake: current alcohol intake frequency: holidays/special occasions only details: not while substance use type: does not use well-balanced diet: daily or most days caffeine: No eating out: 1-3 times/week during the past year weight has: remained stable what type of physical activity do you participate in: none pelon/scientology: None seatbelt use: always do you feel safe at home: Yes 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 Date Name GA/Weeks Outcome Route Bth Weight Gen Labor Lgth Anesthesia Del Locatn Provider FOB Unknown 2013-Serge 40 live - full term 6lbs 15o Male none [facility] Unknown 2016-Dominic 40 live - full term 8lbs 7o Male none [facility] Unknown 2020 Miscarriage 7 spontaneous 11/08/19 surrogate live - full term [facility] Dr. Abby Carreon Delivery Date: 11/08/19 Last Updated by: Maribel Clark Surrogate HPI NST per KW *growth US at 0800 Details: MICHELINE RUSSO is a 30 year old who presents for routine OB visit. OB Visit GLENN Calculator Estimated Delivery Date Method Current WG Current Estimate 05/21/25 LMP (Certain) 32w 2d Expected Delivery Route/Plan Labor Preferences- CB/BF classes: no labor support person: Dave labor intervention preferences: [] pain management options preferred: limited cut cord/dad catch: yes : yes PP control planned: discussed discussed possible routes of delivery and associated risks: [] special requests: [] Specific Issue/Plans Covid status: [] Flu vaccine: [] Tdap vaccine: [] Rhogam: NA, baby Rh neg LARC form signed: yes Problem list reviewed and updated with the most current plan of care details and appropriate ordersplaced. Relevant counseling for the gestational age provided. Continue routine care and follow up unless otherwise noted in visit notes/problem list details Initial Weight: 187 lb Date -?-?-?-?-?-?-?-?-?-?-?-?- EGA Weight BP Urine Prot -?-?-?-?-?-?-?-?-?-?-?-?- Glucose FHR FuHt Pres Dilation -?-?-?-?-?-?-?-?-?-?-?-?- Effaced St Visit Note 10/11/24 -?-?-?-?-?-?-?-?-?--?-?-?- 8w 2d 187 lb (+0 oz) 143/84 -?-?-?-?-?-?-?-?-?-?-?-?- 186 -?-?-?-?-?-?-?-?-?-?-?-?- LC- CRL 1.47 con with LMP. desires nipt. thyroid normal, no longer on medications.chronic htn on labetolol. 11/06/24 -?-?-?-?-?-?-?-?-?-?-?-?- 12w 0d 189 lb (+2 lb) 141/94 Negative -?-?-?-?-?-?-?-?-?-?-?-?- Negative -?-?-?-?-?-?-?-?-?-?-?-?- JV- pt here for nursing visit. still with elevated pressures. Starting pr ocardia and close follow up. pt states that she has been on 5 or 6 different blood pressure medications. when she goes above 100 of labetalol her pressure drops too low. if now improvement with procardia will need to consult cardiology or at least primary care for bp assistance. 11/13/24 -?-?-?-?-?-?-?-?-?-?-?-?- 13w 0d 190 lb (+3 lb) 144/91 Negative -?-?-?-?-?-?-?-?-?-?-?-?- Negative 166 -?-?-?-?-?-?-?-?-?-?-?-?- MH-No VB. Br US confirm FHT. Not taking procardia/can't swallow it. States home BPs nl when takes labetalol 100mg tid but missed dose today. Had CMP per employee health todayand minimally elevated AST/ALT. Stressed importance of tid dosing and risks of uncontrolled HTN. MFM consult. RTO 1 week 12/12/24 -?-?-?-?-?-?-?-?-?-?-?-?- 17w 1d 187 lb 4 oz (+4 oz) 123/77 Negative -?-?-?-?-?-?-?-?-?-?-?-?- Negative 150 -?-?-?-?-?-?-?-?-?-?-?-?- SM- no vb lof cr amping 01/09/25 -?-?-?-?-?-?-?-?-?-?-?-?- 21w 1d 191 lb (+4 lb) 135/86 Negative -?-?-?-?-?-?-?-?-?-?-?-?- Negative 151 -?-?-?-?-?-?-?-?-?-?-?-?- JV- no complaint s today. rpt cmp and cbc today. lft's have been trending down. 02/03/25 -?-?-?-?-?-?-?-?-?-?-?-?- 24w 5d 191 lb 6 oz (+4 lb 6 oz) 126/84 Negative -?-?-?-?-?-?-?-?-?-?-?-?- Negative 160 25 -?-?-?-?-?-?-?-?-?-?-?-?- KW- no vb/lof/ct x. good fm. is having some lower BPs (90/60) at home but not symptomatic. pepcid for heart burn. glucose next visit. 02/24/25 -?-?-?-?-?-?-?-?-?-?-?-?- 27w 5d 190 lb 4 oz (+3 lb 4 oz) 124/77 Negative -?-?-?-?-?-?-?-?-?-?-?-?- Negative 154 28 -?-?-?-?-?-?-?-?-?-?-?-?- MH-No VB. Good F m 28 wk labs pending. Larc. Discussed need for weekly NST, BPP and also growth US Q4wk at 32 wk. 03/12/25 -?-?-?-?-?-?-?-?-?-?-?-?- 30w 0d 196 lb 2 oz (+9 lb 2 oz) 138/84 Negative -?-?-?-?-?-?-?-?-?-?-?-?- Negative 145 30 -?-?-?-?-?-?-?-?-?-?-?-?- JV-no lof, vag b leeding or dec fm.needs growth us 32 and 36 weeks. still on labetalol.importance of iol discussed and she wants to try to avoid that. Will look forward to MFM explaining to her. JV-no lof, vag bleeding or d ec fm.needs growth us 32 and 36 weeks. still on labetalol.importance of iol discussed and she wants to try to avoid that. Will look forward to MFM explaining to her. needs tsh next visit 03/28/25 -?-?-?-?-?-?-?-?-?-?-?-?- 32w 2d 194 lb 2 oz (+7 lb 2 oz) 132/77 Trace -?-?-?-?-?-?-?-?-?-?-?-?- 250 g/dL 140 -?-?-?-?-?-?-?-?-?-?-?-?- KW- NST only. ur ine very concentrated and reports little to drink today. ACOG First Trimester First Trimester: Discussed Second Trimester Second Trimester: Signs and Symptoms of Labor, Selecting a care provider, Reproductive Life Planning & Contreception, Care Planning, Tobacco Cessation, Depression/Anxiety and Intimate Partner Violence Third Trimester Third Trimester: Pain Management Plans, Labor support person(s), Immediate Larc, Movement Monitoring and Feeding No ; Discussed Trial of Labor after Counseling and Discussed Circumcision preference ROS Const Reports system reviewed and no additional complaints, except as documented Eyes Reports system reviewed and no additional complaints, except as documented ENT Reports system reviewed and no additional complaints, except as documented Card Reports system reviewed and no additional complaints, except as documented Resp Reports system reviewed and no additional complaints, except as documented GI Reports system reviewed and no additional complaints, except as documented, Denies nausea and Denies vomiting Reports system reviewed and no additional complaints, except as documented Musc Reports system reviewed and no additional complaints, except as documented Skin/Breast Reports system reviewed and no additional complaints, except as documented Neuro Yes system reviewed and no additional complaints, except as documented Psych Reports system reviewed and no additional complaints, except as documented Endo Reports system reviewed and no additional complaints, except as documented Malik/Lymph Reports system reviewed and no additional complaints, except as documented Aller/Immun Reports system reviewed and no additional complaints, except as documented Exam Const General: cooperative, healthy appearing and no acute distress Orientation: alert, awake and oriented x3 Neck Neck: normal visual inspection and full ROM Resp Effort & Inspection: normal respiratory effort, able to speak in complete sentences and symmetric chest movement GI Inspection: normal to inspection Palpation: soft and other Other: gravid Skin General: no rashes or lesions noted Neuro General: patient alert, patient awake and patient oriented x3 Cognition: normal cognition Speech: speech normal Gait: normal gait Motor: muscle tone normal throughout Extrem General: normal to inspection and full ROM Psych Appearance: grossly normal Mental Status: mental status grossly normal Mood: congruent mood Affect: normal affect Speech and Movement: speech and movement normal Attitude: cooperative Thought Process: normal Thought Content: normal Judgment: judgment good Office Procedures Non-stress Test Non-Stress Test Indications for Monitoring: Yes hypertension Heart Rate Baseline: 140 Heart Rate Variability: moderate Movement: Present Heart Rate Accelerations: Present Decelerations: Absent Contractions: Absent Impression: Yes Reactive Non-Stress Test Results POC Urinalysis 2 Dip (Clinic) Office Urine Glucose 250 g/dL Last Edit by Vanessa Pressley on 03/28/25 09:15 Office Urine Protein Trace Last Edit by Vanessa Pressley on 03/28/25 09:15 Coding Level of Care Code OB Routine Diagnoses Anemia during in second trimester O99.012 Trimester: second trimester Elevated liver enzymes R74.8 Chronic hypertension affecting O10.919 Thyroid disease E07.9 Obesity affecting in second trimester, unspecified obesity type O99.212 Obesity type affecting : unspecified obesity Trimester: second trimester 32 weeks gestation of Z3A.32 Weeks of gestation: 32 weeks Rh negative status during in second trimester O26.892; Z67.91 Trimester: second trimester Supervision of high risk in second trimester O09.92 Trimester: second trimester Thyroid disease affecting O99.280; E07.9 Fatigue, unspecified type R53.83 Fatigue type: unspecified CPT Codes Non-Stress Test (49072) Assessment and Plan Assessment and Plan (1) Anemia in preg-unspec: Status: Acute Qualifiers: Trimester: second trimester Qualified Code(s): O99.012 - Anemia complicating , second trimester Comment: SlowFe (2) Elevated liver enzymes: Status: Acute Comment: mild. decreasing. (3) Chronic hypertension affecting : Status: Chronic Comment: increased labetalol to 200mg Tid caused near syncope. Can't swallow procardia. Labetalol 100mg tid.RTO 1 wk BP check. MFM consult. Misses doses/discussed importance. No headache/vision changes. baseline pec labs asa 81mg at 10 weeks. 32 wk:NST and BPP weekly plus Growth Q4wk mfm for anatomy (4) Thyroid disease: Status: Acute Comment: not on any medications, was on previous during surrogacy. (5) Obesity affecting : Status: Acute Qualifiers: Obesity type affecting : unspecified obesity Trimester: second trimester Qualified Code(s): O99.212 - Obesity complicating , second trimester Comment: HgbA1c (6) : Status: Acute Qualifiers: Weeks of gestation: 32 weeks Qualified Code(s): Z3A.32 - 32 weeks gestation of Comment: NIPT low risk(NO GENDER) carrier neg. . nl anatomy. (7) Rh negative status during : Status: Acute Qualifiers: Trimester: second trimester Qualified Code(s): O26.892 - Other specified related conditions, second trimester; Z67.91 - Unspecified blood type, Rh negative Comment: Rhogam @ 28 wks & PRN Bleeding. Baby is Rh- per Tsephy results (8) Supervision of high-risk : Status: Acute Qualifiers: Trimester: second trimester Qualified Code(s): O09.92 - Supervision of high risk , unspecified, second trimester Comment: [id number](1 child was surrogate),GLENN 05/21/25, Dominic Melendez, ANTIONE Martins (9) Thyroid disease affecting : Status: Acute Comment: normal labs (10) Fatigue: Status: Acute Qualifiers: Fatigue type: unspecified Qualified Code(s): R53.83 - Other fatigue Orders: Orders OB NST Today O10.919 - Unspecified pre-existing hypertension complicating , unspecified trimester POC Urinalysis 2 Dip (Clinic) Today Plan Details Additional Comments: ACOG trimester education reviewed and updated. see problem list details for updated plan management information and see below for orders placed atthis visit. GA appropriate handout given. Clinical Quality Measures Falls Risk Screening/Assistive Devices Have you fallen in the past year?: No 03/28/25 0925 s KATY> Date _ Joyce Royal Signature: Date (if applicable) CC: ~ [facility]05-21-2025 Progress [facility] [address] [place] [address], [address] [place] [address] OFFICE VISIT Date of Service: 03/12/25 MR#: [id number] Acct: [id number] Name: MICHELINE RUSSO Rep #: [id number] : 1995 Provider: Dr. Monserrat Lepe DO Age/Sex: 30/F Location[place] [facility] [place]: Signed Intake Vital Signs 01/09/25 11:30 02/03/25 13:36 02/24/25 13:27 03/12/25 11:47 03/12/25 11:48 Height 5 ft 4 in 5 ft 4 in 5 ft 4 in 5 ft 4 in 5 ft 4 in Weight: 196 lb 2 oz BMI 33.6 BP 138/84 H Intake Visit Reasons: 30wk ob Poker Manager Required: No Is patient in pain?: No Allergies No Known Allergies Allergy (Verified 03/12/25 11:47) Medications ?Medication ?Instructions ?Recorded ?Confirmed ?Type multivit-min no.71-iron fum 28 cap PO 10/10/24 5 History mg-folate no.1 1 mg-dha 300 mg capsule (PNV-[place]) labetalol 200 mg tablet 100 mg PO TID 10/25/2403/12 History Last Menstrual Period: 08/14/24 Zika: Zika virus screening: Negative : No PFSH PFSH Medical History Former smoker, stopped smoking in distant past Seasonal allergies Ovarian cyst Hypertension Thyroid disease Anemia History of hemorrhoids Shortness of breath Surgical History History of appendectomy S/P wisdom tooth extraction No significant past surgical history Family History Father Myocardial infarction Grandfather Myocardial infarction Hypertension Uncle Myocardial infarction Mother Hypertension Social History adopted: No household members: significant other and children housing: house number of children: 2 current occupational status: employed current occupation: [employer] pets and animals: Yes (Avoids litterbox) pets and animals: cat(s) history of recent travel: No sexually active: Yes Smoking Status: Former smoker how long ago did patient quit smokinyears ago alcohol intake: current alcohol intake frequency: holidays/special occasions only details: not while substance use type: does not use well-balanced diet: daily or most days caffeine: No eating out: 1-3 times/week during the past year weight has: remained stable what type of physical activity do you participate in: none pelon/scientology: None seatbelt use: always do you feel safe at home: Yes additional social history: BF 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 Date Name GA/Weeks Outcome Route Bth Weight Gen Labor Lgth Anesthesia Del Locatn Provider FOB Unknown 2013- 40 live - full term 6lbs 15o Male none [facility] Unknown live - full term 8lbs 7o Male none [facility] Unknown 2020 Miscarriage 7 spontaneous 11/08/19 surrogate live - full term [facility] Dr. Abby Carreon Delivery Date: 11/08/19 Last Updated by: Maribel Clark Surrogate HPI 30wk ob Details: MICHELINE RUSSO is a 30 year old who presents for routine OB visit. OB Visit GLENN Calculator Estimated Delivery Date Method Current WG Current Estimate 05/21/25 LMP (Certain) 30w 0d Expected Delivery Route/Plan Labor Preferences- CB/BF classes: no labor support person: Dave labor intervention preferences: [] pain management options preferred: limited cut cord/dad catch: yes : yes PP control planned: discussed discussed possible routes of delivery and associated risks: [] special requests: [] Specific Issue/Plans Covid status: [] Flu vaccine: [] Tdap vaccine: [] Rhogam: NA, baby Rh neg LARC form signed: yes Problem list reviewed and updated with the most current plan of care details and appropriate ordersplaced. Relevant counseling for the gestational age provided. Continue routine care and follow up unless otherwise noted in visit notes/problem list details Initial Weight: 187 lb Date -?-?-?-?-?-?-?-?-?-?-?-?- EGA Weight BP Urine Prot -?-?-?-?-?-?-?-?-?-?-?-?- Glucose FHR FuHt Pres Dilation -?-?-?-?-?-?-?-?-?-?-?-?- Effaced St Visit Note 10/11/24 -?-?-?-?-?-?-?-?-?-?-?-?- 8w 2d 187 lb (+0 oz) 143/84 -?-?-?-?-?-?-?-?-?-?-?-?- 186 -?-?-?-?-?-?-?-?-?-?-?-?- LC- CRL 1.47 con with LMP. desires nipt. thyroid normal, no longer on medications.chronic htn on labetolol. 11/06/24 -?-?-?-?-?-?-?-?-?-?-?-?- 12w 0d 189 lb (+2 lb) 141/94 Negative -?-?-?-?-?-?-?-?-?-?-?-?- Negative -?-?-?-?-?-?-?-?-?-?-?-?- JV- pt here for nursing visit. still with elevated pressures. Starting procardia and close follow up. pt states that she has been on 5 or 6 different blood pressure medications. when she goes above 100 of labetalol her pressure drops too low. if now improvement with procardia will need to consult cardiology or at least primary care for bp assistance. 11/13/24 -?-?-?-?-?-?-?-?-?-?-?-?- 13w 0d 190 lb (+3 lb) 144/91 Negative -?-?-?-?-?-?-?-?-?-?-?-?- Negative 166 -?-?-?-?-?-?-?-?-?-?-?-?- MH-No VB. Br US confirm FHT. Not taking procardia/can't swallow it. States home BPs nl when takes labetalol 100mg tid but missed dose today. Had CMP per employee health todayand minimally elevated AST/ALT. Stressed importance of tid dosing and risks of uncontrolled HTN. MFM consult. RTO 1 week 12/12/24 -?-?-?-?-?-?-?-?-?-?-?-?- 17w 1d 187 lb 4 oz (+4 oz) 123/77 Negative -?-?-?-?-?-?-?-?-?-?-?-?- Negative 150 -?-?-?-?-?-?-?-?-?-?-?-?- SM- no vb lof cr amping 01/09/25 -?-?-?-?-?-?-?-?-?-?-?-?- 21w 1d 191 lb (+4 lb) 135/86 Negative -?-?-?-?-?-?-?-?-?-?-?-?- Negative 151 -?-?-?-?-?-?-?-?-?-?-?-?- JV- no complaint s today. rpt cmp and cbc today. lft's have been trending down. 02/03/25 -?-?-?-?-?-?-?-?-?-?-?-?- 24w 5d 191 lb 6 oz (+4 lb 6 oz) 126/84 Negative -?-?-?-?-?-?-?-?-?-?-?-?- Negative 160 25 -?-?-?-?-?-?-?-?-?-?-?-?- KW- no vb/lof/ct x. good fm. is having some lower BPs (90/60) at home but not symptomatic. pepcid for heart burn. glucose next visit. 02/24/25 -?-?-?-?-?-?-?-?-?-?-?-?- 27w 5d 190 lb 4 oz (+3 lb 4 oz) 124/77 Negative -?-?-?-?-?-?-?-?-?-?-?-?- Negative 154 28 -?-?-?-?-?-?-?-?-?-?-?-?- MH-No VB. Good F m 28 wk labs pending. Larc. Discussed need for weekly NST, BPP and also growth US Q4wk at 32 wk. 03/12/25 -?-?-?-?-?-?-?-?-?-?-?-?- 30w 0d 196 lb 2 oz (+9 lb 2 oz) 138/84 Negative -?-?-?-?-?-?-?-?-?-?-?-?- Negative 145 30 -?-?-?-?-?-?-?-?-?-?-?-?- JV-no lof, vag b leeding or dec fm.needs growth us 32 and 36 weeks. still on labetalol.importance of iol discussed and she wants to try to avoid that. Will look forward to MFM explaining to her. JV-no lof, vag bleeding or d ec fm.needs growth us 32 and 36 weeks. still on labetalol.importance of iol discussed and she wants to try to avoid that. Will look forward to MFM explaining to her. needs tsh next visit ACOG First Trimester First Trimester: Discussed Second Trimester Second Trimester: Signs and Symptoms of Labor, Selecting a care provider, Reproductive Life Planning & Contreception, Care Planning, Tobacco Cessation, Depression/Anxiety and Intimate Partner Violence Third Trimester Third Trimester: Pain Management Plans, Labor support person(s), Immediate Larc, Movement Monitoring and Infant Feeding No ; Discussed Trial of Labor after Counseling and Discussed Circumcision preference Results POC Urinalysis 2 Dip (Clinic) Office Urine Glucose Negative Last Edit by Maribel Clark on 03/12/25 11: 55 Office Urine Protein Negative Last Edit by Maribel Clark on 03/12/25 11: 55 Coding Level of Care Code OB Routine Diagnoses Anemia during in second trimester O99.012 Trimester: second trimester Elevated liver enzymes R74.8 Chronic hypertension affecting O10.919 Thyroid disease E07.9 Obesity affecting in second trimester, unspecified obesity type O99.212 Obesity type affecting : unspecified obesity Trimester: second trimester 30 weeks gestation of Z3A.30 Weeks of gestation: 30 weeks Rh negative status during in second trimester O26.892; Z67.91 Trimester: second trimester Supervision of high risk in second trimester O09.92 Trimester: second trimester Thyroid disease affecting O99.280; E07.9 Fatigue, unspecified type R53.83 Fatigue type: unspecified Assessment and Plan Assessment and Plan (1) Anemia in preg-unspec: Status: Acute Qualifiers: Trimester: second trimester Qualified Code(s): O99.012 - Anemia complicating , second trimester Comment: SlowFe (2) Elevated liver enzymes: Status: Acute Comment: mild. decreasing. (3) Chronic hypertension affecting : Status: Chronic Comment: increased labetalol to 200mg Tid caused near syncope. Can't swallow procardia. Labetalol 100mg tid.RTO 1 wk BP check. MFM consult. Misses doses/discussed importance. No headache/vision changes. baseline pec labs asa 81mg at 10 weeks. 32 wk:NST and BPP weekly plus Growth Q4wk mfm for anatomy (4) Thyroid disease: Status: Acute Comment: not on any medications, was on previous during surrogacy. (5) Obesity affecting : Status: Acute Qualifiers: Obesity type affecting : unspecified obesity Trimester: second trimester Qualified Code(s): O99.212 - Obesity complicating , second trimester Comment: HgbA1c (6) : Status: Acute Qualifiers: Weeks of gestation: 30 weeks Qualified Code(s): Z3A.30 - 30 weeks gestation of Comment: NIPT low risk(NO GENDER) carrier neg. . nl anatomy. (7) Rh negative status during : Status: Acute Qualifiers: Trimester: second trimester Qualified Code(s): O26.892 - Other specified related conditions, second trimester; Z67.91 - Unspecified blood type, Rh negative Comment: Rhogam @ 28 wks & PRN Bleeding. Baby is Rh- per Stephy results (8) Supervision of high-risk : Status: Acute Qualifiers: Trimester: second trimester Qualified Code(s): O09.92 - Supervision of high risk , unspecified, second trimester Comment: [id number](1 child was surrogate),GLENN 05/21/25, Dominic Melendez, ANTIONE Martins (9) Thyroid disease affecting : Status: Acute Comment: normal labs (10) Fatigue: Status: Acute Qualifiers: Fatigue type: unspecified Qualified Code(s): R53.83 - Other fatigue Orders: Orders POC Urinalysis 2 Dip (Clinic) Today Thyroid Stim Hormone (TSH) Today R74.8 - Abnormal levels of other serum enzymes T4 Free Direct Today R74.8 - Abnormal levels of other serum enzymes 03/12/25 1218 e Velde DO> Date _ Tiffanie Sanchez Velde DO Cosigner Signature: Date (if applicable) CC: ~ [facility]05-05-2025 Evaluation note* Diagnosis Onset Date Resolution Status Admit Date Thyroid disease acute February 24, 2025 1:00pm Anemia in preg-unspec resolved February 24, 2025 1:00pm Chronic hypertension affecting resolved February 24 1:00pm Elevated liver enzymes resolved Ma y 2024 1:00pm Fatigue resolved February 24, 2025 1:00pm Obesity affecting resolved February 24, 2025 1:00pm resolved February 24, 2025 1:00pm Rh negative status during resolved February 24, 2025 1: 00pm Supervision of high-risk resolved February 24, 2025 1: 00pm Thyroid disease affecting resolved February 24, 2025 1: 00pm Thyroid disease acute March 12, 2025 11:45am Anemia in preg-unspec resolved March 12, 2025 11:45am Chronic hypertension affecting resolved March 12 11:45am Elevated liver enzymes resolved Ma y 2024 11:45am Fatigue resolved March 12, 2025 11:45am Obesity affecting resolved March 12, 2025 11:45am resolved March 12, 2025 11:45am Rh negative status during resolved March 12, 2025 1 1:45am Supervision of high-risk resolved March 12, 2025 1 1:45am Thyroid disease affecting resolved March 12, 2025 1 1:45am Thyroid disease acute March 28, 2025 8:57am Anemia in preg-unspec resolved Mar 8:57am Chronic hypertension affecting resolved March 28 8:57am Elevated liver enzymes resolved Ju 2024 8:57am Fatigue resolved March 28, 2025 8:57am Obesity affecting resolved March 28, 2025 8:57am resolved March 28, 2025 8:57am Rh negative status during resolved March 28, 2025 8 :57am Supervision of high-risk resolved March 28, 2025 8 :57am Thyroid disease affecting resolved March 28, 2025 8 :57am Thyroid disease acute March 31, 2025 11:01am Anemia in preg-unspec resolved Mar 11:01am Chronic hypertension affecting resolved March 31 11:01am Elevated liver enzymes resolved Ju ne 2024 11:01am Fatigue resolved March 31, 2025 11:01am Obesity affecting resolved March 31, 2025 11:01am resolved March 31, 2025 11:01am Rh negative status during resolved March 31, 2025 1 1:01am Supervision of high-risk resolved March 31, 2025 1 1:01am Thyroid disease affecting resolved March 31, 2025 1 1:01am Thyroid disease acute March 10:28am Anemia in preg-unspec resolved Mar 10:28am Chronic hypertension affecting resolved April 08, 025 10:28am Elevated liver enzymes resolved 2024 10:28am Fatigue resolved April 08 10:28am Obesity affecting resolved April 08, 2025 10:28am resolved April 08 10:28am Rh negative status during resolved April 08, 2025 10:28am Supervision of high-risk resolved April 08, 2025 10:28am Thyroid disease affecting resolved April 08, 2025 10:28am Thyroid disease acute March 11:35am Anemia in preg-unspec resolved Mar 11:35am Chronic hypertension affecting resolved April 14, 025 11:35am Elevated liver enzymes resolved ne 2024 11:35am Fatigue resolved April 14 11:35am Obesity affecting resolved April 14, 2025 11:35am resolved April 14 11:35am Rh negative status during resolved April 14, 2025 11:35am Supervision of high-risk resolved April 14, 2025 11:35am Thyroid disease affecting resolved April 14, 2025 11:35am Thyroid disease acute March 1:07pm Anemia in preg-unspec resolved Mar 1:07pm Chronic hypertension affecting resolved April 21, 2 025 1:07pm Elevated liver enzymes resolved Ju ne 2024 1:07pm Fatigue resolved April 21 1:07pm Obesity affecting resolved April 21, 2025 1:07pm resolved April 21 1:07pm Rh negative status during resolved April 21, 2025 1:07pm Supervision of high-risk resolved April 21, 2025 1:07pm Thyroid disease affecting resolved April 21, 2025 1:07pm Thyroid disease acute March 2:00pm Anemia in preg-unspec resolved Mar 2:00pm Antepartum variable deceleration resolved April 21, 2025 2:00pm Chronic hypertension affecting resolved April 21, 2 025 2:00pm Elevated liver enzymes resolved Ju ne 2024 2:00pm Fatigue resolved April 21 2:00pm Obesity affecting resolved April 21, 2025 2:00pm resolved April 21 2:00pm Rh negative status during resolved April 21, 2025 2:00pm Supervision of high-risk resolved April 21, 2025 2:00pm Thyroid disease affecting resolved April 21, 2025 2:00pm Thyroid disease acute April 28, 2025 1:05pm Anemia in preg-unspec resolved Apr 1:05pm Antepartum variable deceleration resolved April 28, 2025 1 :05pm Chronic hypertension affecting resolved April 28 1:05pm Elevated liver enzymes resolved Ju 2024 1:05pm Fatigue resolved April 28, 2025 1:05pm Obesity affecting resolved April 28, 2025 1:05pm resolved April 28, 2025 1:05pm Rh negative status during resolved April 28, 2025 1 :05pm Supervision of high-risk resolved April 28, 2025 1 :05pm Thyroid disease affecting resolved April 28, 2025 1 :05pm Thyroid disease acute April 12:27pm Anemia in preg-unspec resolved Apr 12:27pm Antepartum variable deceleration resolved May 05, 2025 12:27pm Chronic hypertension affecting resolved May 05 025 12:27pm Elevated liver enzymes resolved 2024 12:27pm Fatigue resolved May 05 12:27pm Obesity affecting resolved May 05, 2025 12:27pm resolved May 05 12:27pm Rh negative status during resolved May 05, 2025 12:27pm Supervision of high-risk resolved May 05, 2025 12:27pm Thyroid disease affecting resolved May 05, 2025 12:27pm Thyroid disease acute April 8:05am Anemia in preg-unspec resolved Apr 8:05am Chronic hypertension affecting resolved May 09 8:05am Encounter for induction of labor resolved May 09, 2025 8:05am Obesity affecting resolved May 09, 2025 8:05am resolved May 09 8:05am Rh negative status during resolved May 09, 2025 8:05am Supervision of high-risk resolved May 09, 2025 8:05am Thyroid disease affecting resolved May 09, 2025 8:05am Vaginal delivery resolved April 8:05am Routine Follow-Up noneact john June 19, 2025 10:13am [facility] Work Phone: 1(753) 993-595204-14-2025 Evaluation note* Diagnosis Onset Date Resolution Status Admit Date Anemia in preg-unspec acute Jan 1:33pm Obesity affecting acute February 03, 2025 1:33pm acute February 03 1:33pm Rh negative status during acute February 03, 2025 1:33pm Supervision of high-risk acute February 03, 2025 1:33pm Thyroid disease acute January 1:33pm Chronic hypertension affecti ng chronic February 03, 2025 1:33pm Elevated liver enzymes resolved Ap ril 2024 1:33pm Fatigue resolved February 03 1:33pm Thyroid disease affecting resolved February 03, 2025 1:33pm Anemia in preg-unspec acute February 24, 2025 1:00pm Obesity affecting acute February 24, 2025 1:00pm acute February 24, 2025 1:00pm Rh negative status during acute February 24, 2025 1: 00pm Supervision of high-risk acute February 24, 2025 1: 00pm Thyroid disease acute February 24, 2025 1:00pm Chronic hypertension affecti ng chronic February 24, 2025 1: 00pm Elevated liver enzymes resolved Ma 2024 1:00pm Fatigue resolved February 24, 2025 1:00pm Thyroid disease affecting resolved February 24, 2025 1: 00pm Anemia in preg-unspec acute March 12, 2025 11:45am Obesity affecting acute March 12, 2025 11:45am acute March 12, 2025 11:45am Rh negative status during acute March 12, 2025 1 1:45am Supervision of high-risk acute March 12, 2025 1 1:45am Thyroid disease acute March 12, 2025 11:45am Chronic hypertension affecti ng chronic March 12, 2025 1 1:45am Elevated liver enzymes resolved Ma 2024 11:45am Fatigue resolved March 12, 2025 11:45am Thyroid disease affecting resolved March 12, 2025 1 1:45am Anemia in preg-unspec acute Mar 8:57am Obesity affecting acute March 28, 2025 8:57am acute March 28, 2025 8:57am Rh negative status during acute March 28, 2025 8 :57am Supervision of high-risk acute March 28, 2025 8 :57am Thyroid disease acute March 28, 2025 8:57am Chronic hypertension affecti ng chronic March 28, 2025 8 :57am Elevated liver enzymes resolved Ju 2024 8:57am Fatigue resolved March 28, 2025 8:57am Thyroid disease affecting resolved March 28, 2025 8 :57am Anemia in preg-unspec acute Mar 11:01am Obesity affecting acute March 31, 2025 11:01am acute March 31, 2025 11:01am Rh negative status during acute March 31, 2025 1 1:01am Supervision of high-risk acute March 31, 2025 1 1:01am Thyroid disease acute March 31, 2025 11:01am Chronic hypertension affecti ng chronic March 31, 2025 1 1:01am Elevated liver enzymes resolved 2024 11:01am Fatigue resolved March 31, 2025 11:01am Thyroid disease affecting resolved March 31, 2025 1 1:01am Anemia in preg-unspec acute Mar 10:28am Obesity affecting acute April 08, 2025 10:28am acute April 08 10:28am Rh negative status during acute April 08, 2025 10:28am Supervision of high-risk acute April 08, 2025 10:28am Thyroid disease acute March 10:28am Chronic hypertension affecti ng chronic April 08, 2025 10:28am Elevated liver enzymes resolved 2024 10:28am Fatigue resolved April 08 10:28am Thyroid disease affecting resolved April 08, 2025 10:28am Anemia in preg-unspec acute Mar 11:35am Obesity affecting acute April 14, 2025 11:35am acute April 14 11:35am Rh negative status during acute April 14, 2025 11:35am Supervision of high-risk acute April 14, 2025 11:35am Thyroid disease acute March 11:35am Chronic hypertension affecti ng chronic April 14, 2025 11:35am Elevated liver enzymes resolved 2024 11:35am Fatigue resolved April 14 11:35am Thyroid disease affecting resolved April 14, 2025 11:35am Anemia in preg-unspec acute Mar 1:07pm Obesity affecting acute April 21, 2025 1:07pm acute April 21 1:07pm Rh negative status during acute April 21, 2025 1:07pm Supervision of high-risk acute April 21, 2025 1:07pm Thyroid disease acute March 1:07pm Chronic hypertension affecti ng chronic April 21, 2025 1:07pm Elevated liver enzymes resolved Ju ne 2024 1:07pm Fatigue resolved April 21 1:07pm Thyroid disease affecting resolved April 21, 2025 1:07pm Anemia in preg-unspec acute Andre 2024 2:00pm Obesity affecting acute April 21, 2025 2:00pm acute April 21 2:00pm Rh negative status during acute April 21, 2025 2:00pm Supervision of high-risk acute April 21, 2025 2:00pm Thyroid disease acute March 2:00pm Chronic hypertension affecti ng chronic April 21, 2025 2:00pm Antepartum variable deceleration resolved April 21, 2025 2:00pm Elevated liver enzymes resolved Ju ne 2024 2:00pm Fatigue resolved April 21 2:00pm Thyroid disease affecting resolved April 21, 2025 2:00pm Anemia in preg-unspec acute Apr 1:05pm Obesity affecting acute April 28, 2025 1:05pm acute April 28, 2025 1:05pm Rh negative status during acute April 28, 2025 1 :05pm Supervision of high-risk acute April 28, 2025 1 :05pm Thyroid disease acute April 28, 2025 1:05pm Chronic hypertension affecti ng chronic April 28, 2025 1 :05pm Antepartum variable deceleration resolved April 28, 2025 1 :05pm Elevated liver enzymes resolved Ju ly 2024 1:05pm Fatigue resolved April 28, 2025 1:05pm Thyroid disease affecting resolved April 28, 2025 1 :05pm Anemia in preg-unspec acute Apr 12:27pm Obesity affecting acute May 05, 2025 12:27pm acute May 05 12:27pm Rh negative status during acute May 05, 2025 12:27pm Supervision of high-risk acute May 05, 2025 12:27pm Thyroid disease acute April 12:27pm Chronic hypertension affecti ng chronic May 05, 2025 12:27pm Antepartum variable deceleration resolved May 05, 2025 12:27pm Elevated liver enzymes resolved Ju ly , 2025 12:27pm Fatigue resolved May 05 12:27pm Thyroid disease affecting resolved May 05, 2025 12:27pm Anemia in preg-unspec acute Apr 8:05am Encounter for induction of labor acute May 09, 2025 8:05am Obesity affecting acute May 09, 2025 8:05am acute May 09 8:05am Rh negative status during acute May 09, 2025 8:05am Supervision of high-risk acute May 09, 2025 8:05am Thyroid disease acute April 8:05am Vaginal delivery acute April 8:05am Chronic hypertension affecti ng chronic May 09, 2025 8:05am Thyroid disease affecting resolved May 09, 2025 8:05am [facility] Work Phone: 1(362) 342-114903-20-2025 Evaluation note* Diagnosis Onset Date Resolution Status Admit Date Elevated liver enzymes acute [facility]2024 11:28am Fatigue acute January 09 11:28am Obesity affecting acute January 09, 2025 11:28am acute January 09 11:28am Rh negative status during acute January 09, 2025 11:28am Supervision of high-risk acute January 09, 2025 11:28am Thyroid disease acute December 11:28am Thyroid disease affecting acute January 09, 2025 11:28am Chronic hypertension affecti ng chronic January 09, 2025 11:28am Anemia in preg-unspec acute Jan 1:33pm Elevated liver enzymes acute Ap ril 2024 1:33pm Fatigue acute February 03 1:33pm Obesity affecting acute February 03, 2025 1:33pm acute February 03 1:33pm Rh negative status during acute February 03, 2025 1:33pm Supervision of high-risk acute February 03, 2025 1:33pm Thyroid disease acute January 1:33pm Thyroid disease affecting acute February 03, 2025 1:33pm Chronic hypertension affecti ng chronic February 03, 2025 1:33pm Anemia in preg-unspec acute February 24, 2025 1:00pm Elevated liver enzymes acute 2024 1:00pm Fatigue acute February 24, 2025 1:00pm Obesity affecting acute February 24, 2025 1:00pm acute February 24, 2025 1:00pm Rh negative status during acute February 24, 2025 1: 00pm Supervision of high-risk acute February 24, 2025 1: 00pm Thyroid disease acute February 24, 2025 1:00pm Thyroid disease affecting acute February 24, 2025 1: 00pm Chronic hypertension affecti ng chronic February 24, 2025 1: 00pm Anemia in preg-unspec acute March 12, 2025 11:45am Elevated liver enzymes acute 2024 11:45am Fatigue acute March 12, 2025 11:45am Obesity affecting acute March 12, 2025 11:45am acute March 12, 2025 11:45am Rh negative status during acute March 12, 2025 1 1:45am Supervision of high-risk acute March 12, 2025 1 1:45am Thyroid disease acute March 12, 2025 11:45am Thyroid disease affecting acute March 12, 2025 1 1:45am Chronic hypertension affecti ng chronic March 12, 2025 1 1:45am Anemia in preg-unspec acute Mar 8:57am Elevated liver enzymes acute 2024 8:57am Fatigue acute March 28, 2025 8:57am Obesity affecting acute March 28, 2025 8:57am acute March 28, 2025 8:57am Rh negative status during acute March 28, 2025 8 :57am Supervision of high-risk acute March 28, 2025 8 :57am Thyroid disease acute March 28, 2025 8:57am Thyroid disease affecting acute March 28, 2025 8 :57am Chronic hypertension affecti ng chronic March 28, 2025 8 :57am Anemia in preg-unspec acute Mar 11:01am Elevated liver enzymes acute 2024 11:01am Fatigue acute March 31, 2025 11:01am Obesity affecting acute March 31, 2025 11:01am acute March 31, 2025 11:01am Rh negative status during acute March 31, 2025 1 1:01am Supervision of high-risk acute March 31, 2025 1 1:01am Thyroid disease acute March 31, 2025 11:01am Thyroid disease affecting acute March 31, 2025 1 1:01am Chronic hypertension affecti ng chronic March 31, 2025 1 1:01am Anemia in preg-unspec acute Andre 2024 10:28am Elevated liver enzymes acute Ju ne 2024 10:28am Fatigue acute April 08 10:28am Obesity affecting acute April 08, 2025 10:28am acute April 08 10:28am Rh negative status during acute April 08, 2025 10:28am Supervision of high-risk acute April 08, 2025 10:28am Thyroid disease acute March 10:28am Thyroid disease affecting acute April 08, 2025 10:28am Chronic hypertension affecti ng chronic April 08, 2025 10:28am [facility] Work Phone: 1(810) 485-644003-20-2025 Evaluation note* Diagnosis Onset Date Resolution Status Admit Date Elevated liver enzymes acute [facility] 2024 11:28am Fatigue acute January 09 11:28am Obesity affecting acute January 09, 2025 11:28am acute January 09 11:28am Rh negative status during acute January 09, 2025 11:28am Supervision of high-risk acute January 09, 2025 11:28am Thyroid disease acute December 11:28am Thyroid disease affecting acute January 09, 2025 11:28am Chronic hypertension affecti ng chronic January 09, 2025 11:28am Anemia in preg-unspec acute Apr il 2024 1:33pm Elevated liver enzymes acute Ap ril 2024 1:33pm Fatigue acute February 03 1:33pm Obesity affecting acute February 03, 2025 1:33pm acute February 03 1:33pm Rh negative status during acute February 03, 2025 1:33pm Supervision of high-risk acute February 03, 2025 1:33pm Thyroid disease acute January 1:33pm Thyroid disease affecting acute February 03, 2025 1:33pm Chronic hypertension affecti ng chronic February 03, 2025 1:33pm Anemia in preg-unspec acute February 24, 2025 1:00pm Elevated liver enzymes acute 2024 1:00pm Fatigue acute February 24, 2025 1:00pm Obesity affecting acute February 24, 2025 1:00pm acute February 24, 2025 1:00pm Rh negative status during acute February 24, 2025 1: 00pm Supervision of high-risk acute February 24, 2025 1: 00pm Thyroid disease acute February 24, 2025 1:00pm Thyroid disease affecting acute February 24, 2025 1: 00pm Chronic hypertension affecti ng chronic February 24, 2025 1: 00pm Anemia in preg-unspec acute March 12, 2025 11:45am Elevated liver enzymes acute 2024 11:45am Fatigue acute March 12, 2025 11:45am Obesity affecting acute March 12, 2025 11:45am acute March 12, 2025 11:45am Rh negative status during acute March 12, 2025 1 1:45am Supervision of high-risk acute March 12, 2025 1 1:45am Thyroid disease acute March 12, 2025 11:45am Thyroid disease affecting acute March 12, 2025 1 1:45am Chronic hypertension affecti ng chronic March 12, 2025 1 1:45am Anemia in preg-unspec acute Mar 8:57am Elevated liver enzymes acute 2024 8:57am Fatigue acute March 28, 2025 8:57am Obesity affecting acute March 28, 2025 8:57am acute March 28, 2025 8:57am Rh negative status during acute March 28, 2025 8 :57am Supervision of high-risk acute March 28, 2025 8 :57am Thyroid disease acute March 28, 2025 8:57am Thyroid disease affecting acute March 28, 2025 8 :57am Chronic hypertension affecti ng chronic March 28, 2025 8 :57am Anemia in preg-unspec acute Mar 11:01am Elevated liver enzymes acute 2024 11:01am Fatigue acute March 31, 2025 11:01am Obesity affecting acute March 31, 2025 11:01am acute March 31, 2025 11:01am Rh negative status during acute March 31, 2025 1 1:01am Supervision of high-risk acute March 31, 2025 1 1:01am Thyroid disease acute March 31, 2025 11:01am Thyroid disease affecting acute March 31, 2025 1 1:01am Chronic hypertension affecti ng chronic March 31, 2025 1 1:01am Anemia in preg-unspec acute Mar 10:28am Elevated liver enzymes acute Ju ne 2024 10:28am Fatigue acute April 08 10:28am Obesity affecting acute April 08, 2025 10:28am acute April 08 10:28am Rh negative status during acute April 08, 2025 10:28am Supervision of high-risk acute April 08, 2025 10:28am Thyroid disease acute March 10:28am Thyroid disease affecting acute April 08, 2025 10:28am Chronic hypertension affecti ng chronic April 08, 2025 10:28am Anemia in preg-unspec acute Mar 11:35am Elevated liver enzymes acute Ju ne 2024 11:35am Fatigue acute April 14 11:35am Obesity affecting acute April 14, 2025 11:35am acute April 14 11:35am Rh negative status during acute April 14, 2025 11:35am Supervision of high-risk acute April 14, 2025 11:35am Thyroid disease acute March 11:35am Thyroid disease affecting acute April 14, 2025 11:35am Chronic hypertension affecti ng chronic April 14, 2025 11:35am [facility] Work Phone: 1(500) 502-743003-20-2025 Evaluation note* Diagnosis Onset Date Resolution Status Admit Date Elevated liver enzymes acute [facility] 2024 11:28am Fatigue acute January 09 11:28am Obesity affecting acute January 09, 2025 11:28am acute January 09 11:28am Rh negative status during acute January 09, 2025 11:28am Supervision of high-risk acute January 09, 2025 11:28am Thyroid disease acute December 11:28am Thyroid disease affecting acute January 09, 2025 11:28am Chronic hypertension affecti ng chronic January 09, 2025 11:28am Anemia in preg-unspec acute Apr 2024 1:33pm Elevated liver enzymes acute Ap ril 2024 1:33pm Fatigue acute February 03 1:33pm Obesity affecting acute February 03, 2025 1:33pm acute February 03 1:33pm Rh negative status during acute February 03, 2025 1:33pm Supervision of high-risk acute February 03, 2025 1:33pm Thyroid disease acute January 1:33pm Thyroid disease affecting acute February 03, 2025 1:33pm Chronic hypertension affecti ng chronic February 03, 2025 1:33pm Anemia in preg-unspec acute February 24, 2025 1:00pm Elevated liver enzymes acute 2024 1:00pm Fatigue acute February 24, 2025 1:00pm Obesity affecting acute February 24, 2025 1:00pm acute February 24, 2025 1:00pm Rh negative status during acute February 24, 2025 1: 00pm Supervision of high-risk acute February 24, 2025 1: 00pm Thyroid disease acute February 24, 2025 1:00pm Thyroid disease affecting acute February 24, 2025 1: 00pm Chronic hypertension affecti ng chronic February 24, 2025 1: 00pm Anemia in preg-unspec acute March 12, 2025 11:45am Elevated liver enzymes acute Ma 2024 11:45am Fatigue acute March 12, 2025 11:45am Obesity affecting acute March 12, 2025 11:45am acute March 12, 2025 11:45am Rh negative status during acute March 12, 2025 1 1:45am Supervision of high-risk acute March 12, 2025 1 1:45am Thyroid disease acute March 12, 2025 11:45am Thyroid disease affecting acute March 12, 2025 1 1:45am Chronic hypertension affecti ng chronic March 12, 2025 1 1:45am Anemia in preg-unspec acute Andre e 2024 8:57am Elevated liver enzymes acute Ju 2024 8:57am Fatigue acute March 28, 2025 8:57am Obesity affecting acute March 28, 2025 8:57am acute March 28, 2025 8:57am Rh negative status during acute March 28, 2025 8 :57am Supervision of high-risk acute March 28, 2025 8 :57am Thyroid disease acute March 28, 2025 8:57am Thyroid disease affecting acute March 28, 2025 8 :57am Chronic hypertension affecti ng chronic March 28, 2025 8 :57am Anemia in preg-unspec acute Mar 11:01am Elevated liver enzymes acute Ju ne 2024 11:01am Fatigue acute March 31, 2025 11:01am Obesity affecting acute March 31, 2025 11:01am acute March 31, 2025 11:01am Rh negative status during acute March 31, 2025 1 1:01am Supervision of high-risk acute March 31, 2025 1 1:01am Thyroid disease acute March 31, 2025 11:01am Thyroid disease affecting acute March 31, 2025 1 1:01am Chronic hypertension affecti ng chronic March 31, 2025 1 1:01am Anemia in preg-unspec acute Mar 10:28am Elevated liver enzymes acute Ju 2024 10:28am Fatigue acute April 08 10:28am Obesity affecting acute April 08, 2025 10:28am acute April 08 10:28am Rh negative status during acute April 08, 2025 10:28am Supervision of high-risk acute April 08, 2025 10:28am Thyroid disease acute March 10:28am Thyroid disease affecting acute April 08, 2025 10:28am Chronic hypertension affecti ng chronic April 08, 2025 10:28am Anemia in preg-unspec acute Mar 11:35am Elevated liver enzymes acute Ju ne 2024 11:35am Fatigue acute April 14 11:35am Obesity affecting acute April 14, 2025 11:35am acute April 14 11:35am Rh negative status during acute April 14, 2025 11:35am Supervision of high-risk acute April 14, 2025 11:35am Thyroid disease acute March 11:35am Thyroid disease affecting acute April 14, 2025 11:35am Chronic hypertension affecti ng chronic April 14, 2025 11:35am Anemia in preg-unspec acute Andre 2024 1:07pm Elevated liver enzymes acute Ju ne 2024 1:07pm Fatigue acute April 21 1:07pm Obesity affecting acute April 21, 2025 1:07pm acute April 21 1:07pm Rh negative status during acute April 21, 2025 1:07pm Supervision of high-risk acute April 21, 2025 1:07pm Thyroid disease acute March 1:07pm Thyroid disease affecting acute April 21, 2025 1:07pm Chronic hypertension affecti ng chronic April 21, 2025 1:07pm [employer] Work Phone: 1(765) 696-677603-20-2025 Evaluation note* Diagnosis Onset Date Resolution Status Admit Date Elevated liver enzymes acute Ma rch 2024 11:28am Fatigue acute January 09 11:28am Obesity affecting acute January 09, 2025 11:28am acute January 09 11:28am Rh negative status during acute January 09, 2025 11:28am Supervision of high-risk acute January 09, 2025 11:28am Thyroid disease acute December 11:28am Thyroid disease affecting acute January 09, 2025 11:28am Chronic hypertension affecti ng chronic January 09, 2025 11:28am Anemia in preg-unspec acute Apr il 2024 1:33pm Elevated liver enzymes acute Ap ril 2024 1:33pm Fatigue acute February 03 1:33pm Obesity affecting acute February 03, 2025 1:33pm acute February 03 1:33pm Rh negative status during acute February 03, 2025 1:33pm Supervision of high-risk acute February 03, 2025 1:33pm Thyroid disease acute January 1:33pm Thyroid disease affecting acute February 03, 2025 1:33pm Chronic hypertension affecti ng chronic February 03, 2025 1:33pm Anemia in preg-unspec acute February 24, 2025 1:00pm Elevated liver enzymes acute 2024 1:00pm Fatigue acute February 24, 2025 1:00pm Obesity affecting acute February 24, 2025 1:00pm acute February 24, 2025 1:00pm Rh negative status during acute February 24, 2025 1: 00pm Supervision of high-risk acute February 24, 2025 1: 00pm Thyroid disease acute February 24, 2025 1:00pm Thyroid disease affecting acute February 24, 2025 1: 00pm Chronic hypertension affecti ng chronic February 24, 2025 1: 00pm Anemia in preg-unspec acute March 12, 2025 11:45am Elevated liver enzymes acute 2024 11:45am Fatigue acute March 12, 2025 11:45am Obesity affecting acute March 12, 2025 11:45am acute March 12, 2025 11:45am Rh negative status during acute March 12, 2025 1 1:45am Supervision of high-risk acute March 12, 2025 1 1:45am Thyroid disease acute March 12, 2025 11:45am Thyroid disease affecting acute March 12, 2025 1 1:45am Chronic hypertension affecti ng chronic March 12, 2025 1 1:45am Anemia in preg-unspec acute Mar 8:57am Elevated liver enzymes acute 2024 8:57am Fatigue acute March 28, 2025 8:57am Obesity affecting acute March 28, 2025 8:57am acute March 28, 2025 8:57am Rh negative status during acute March 28, 2025 8 :57am Supervision of high-risk acute March 28, 2025 8 :57am Thyroid disease acute March 28, 2025 8:57am Thyroid disease affecting acute March 28, 2025 8 :57am Chronic hypertension affecti ng chronic March 28, 2025 8 :57am Anemia in preg-unspec acute Mar 11:01am Elevated liver enzymes acute 2024 11:01am Fatigue acute March 31, 2025 11:01am Obesity affecting acute March 31, 2025 11:01am acute March 31, 2025 11:01am Rh negative status during acute March 31, 2025 1 1:01am Supervision of high-risk acute March 31, 2025 1 1:01am Thyroid disease acute March 31, 2025 11:01am Thyroid disease affecting acute March 31, 2025 1 1:01am Chronic hypertension affecti ng chronic March 31, 2025 1 1:01am Anemia in preg-unspec acute Mar 10:28am Elevated liver enzymes acute Ju 2024 10:28am Fatigue acute April 08 10:28am Obesity affecting acute April 08, 2025 10:28am acute April 08 10:28am Rh negative status during acute April 08, 2025 10:28am Supervision of high-risk acute April 08, 2025 10:28am Thyroid disease acute March 10:28am Thyroid disease affecting acute April 08, 2025 10:28am Chronic hypertension affecti ng chronic April 08, 2025 10:28am Anemia in preg-unspec acute Mar 11:35am Elevated liver enzymes acute Ju ne 2024 11:35am Fatigue acute April 14 11:35am Obesity affecting acute April 14, 2025 11:35am acute April 14 11:35am Rh negative status during acute April 14, 2025 11:35am Supervision of high-risk acute April 14, 2025 11:35am Thyroid disease acute March 11:35am Thyroid disease affecting acute April 14, 2025 11:35am Chronic hypertension affecti ng chronic April 14, 2025 11:35am Anemia in preg-unspec acute Mar 1:07pm Elevated liver enzymes acute Ju 2024 1:07pm Fatigue acute April 21 1:07pm Obesity affecting acute April 21, 2025 1:07pm acute April 21 1:07pm Rh negative status during acute April 21, 2025 1:07pm Supervision of high-risk acute April 21, 2025 1:07pm Thyroid disease acute March 1:07pm Thyroid disease affecting acute April 21, 2025 1:07pm Chronic hypertension affecti ng chronic April 21, 2025 1:07pm Anemia in preg-unspec acute Andre e 2024 2:00pm Antepartum variable deceleration acute April 21, 2025 2:00pm Elevated liver enzymes acute Ju ne 2024 2:00pm Fatigue acute April 21 2:00pm Obesity affecting acute April 21, 2025 2:00pm acute April 21 2:00pm Rh negative status during acute April 21, 2025 2:00pm Supervision of high-risk acute April 21, 2025 2:00pm Thyroid disease acute March 2:00pm Thyroid disease affecting acute April 21, 2025 2:00pm Chronic hypertension affecti ng chronic April 21, 2025 2:00pm [facility] Work Phone: 1([phone]) [phone] Evaluation note* Diagnosis Onset Date Resolution Status Admit Date Elevated liver enzymes acute [facility] 2024 11:28am Fatigue acute January 09 11:28am Obesity affecting acute January 09, 2025 11:28am acute January 09 11:28am Rh negative status during acute January 09, 2025 11:28am Supervision of high-risk acute January 09, 2025 11:28am Thyroid disease acute December 11:28am Thyroid disease affecting acute January 09, 2025 11:28am Chronic hypertension affecti ng chronic January 09, 2025 11:28am Anemia in preg-unspec acute Apr 2024 1:33pm Elevated liver enzymes acute Ap ril 2024 1:33pm Fatigue acute February 03 1:33pm Obesity affecting acute February 03, 2025 1:33pm acute February 03 1:33pm Rh negative status during acute February 03, 2025 1:33pm Supervision of high-risk acute February 03, 2025 1:33pm Thyroid disease acute January 1:33pm Thyroid disease affecting acute February 03, 2025 1:33pm Chronic hypertension affecti ng chronic February 03, 2025 1:33pm Anemia in preg-unspec acute February 24, 2025 1:00pm Elevated liver enzymes acute Ma y 2024 1:00pm Fatigue acute February 24, 2025 1:00pm Obesity affecting acute February 24, 2025 1:00pm acute February 24, 2025 1:00pm Rh negative status during acute February 24, 2025 1: 00pm Supervision of high-risk acute February 24, 2025 1: 00pm Thyroid disease acute February 24, 2025 1:00pm Thyroid disease affecting acute February 24, 2025 1: 00pm Chronic hypertension affecti ng chronic February 24, 2025 1: 00pm Anemia in preg-unspec acute March 12, 2025 11:45am Elevated liver enzymes acute Ma y 2024 11:45am Fatigue acute March 12, 2025 11:45am Obesity affecting acute March 12, 2025 11:45am acute March 12, 2025 11:45am Rh negative status during acute March 12, 2025 1 1:45am Supervision of high-risk acute March 12, 2025 1 1:45am Thyroid disease acute March 12, 2025 11:45am Thyroid disease affecting acute March 12, 2025 1 1:45am Chronic hypertension affecti ng chronic March 12, 2025 1 1:45am Anemia in preg-unspec acute Mar 8:57am Elevated liver enzymes acute 2024 8:57am Fatigue acute March 28, 2025 8:57am Obesity affecting acute March 28, 2025 8:57am acute March 28, 2025 8:57am Rh negative status during acute March 28, 2025 8 :57am Supervision of high-risk acute March 28, 2025 8 :57am Thyroid disease acute March 28, 2025 8:57am Thyroid disease affecting acute March 28, 2025 8 :57am Chronic hypertension affecti ng chronic March 28, 2025 8 :57am Anemia in preg-unspec acute Mar 11:01am Elevated liver enzymes acute Ju ne 2024 11:01am Fatigue acute March 31, 2025 11:01am Obesity affecting acute March 31, 2025 11:01am acute March 31, 2025 11:01am Rh negative status during acute March 31, 2025 1 1:01am Supervision of high-risk acute March 31, 2025 1 1:01am Thyroid disease acute March 31, 2025 11:01am Thyroid disease affecting acute March 31, 2025 1 1:01am Chronic hypertension affecti ng chronic March 31, 2025 1 1:01am Anemia in preg-unspec acute Mar 10:28am Elevated liver enzymes acute Ju 2024 10:28am Fatigue acute April 08 10:28am Obesity affecting acute April 08, 2025 10:28am acute April 08 10:28am Rh negative status during acute April 08, 2025 10:28am Supervision of high-risk acute April 08, 2025 10:28am Thyroid disease acute March 10:28am Thyroid disease affecting acute April 08, 2025 10:28am Chronic hypertension affecti ng chronic April 08, 2025 10:28am Anemia in preg-unspec acute Mar 11:35am Elevated liver enzymes acute 2024 11:35am Fatigue acute April 14 11:35am Obesity affecting acute April 14, 2025 11:35am acute April 14 11:35am Rh negative status during acute April 14, 2025 11:35am Supervision of high-risk acute April 14, 2025 11:35am Thyroid disease acute March 11:35am Thyroid disease affecting acute April 14, 2025 11:35am Chronic hypertension affecti ng chronic April 14, 2025 11:35am Anemia in preg-unspec acute Mar 1:07pm Elevated liver enzymes acute 2024 1:07pm Fatigue acute April 21 1:07pm Obesity affecting acute April 21, 2025 1:07pm acute April 21 1:07pm Rh negative status during acute April 21, 2025 1:07pm Supervision of high-risk acute April 21, 2025 1:07pm Thyroid disease acute March 1:07pm Thyroid disease affecting acute April 21, 2025 1:07pm Chronic hypertension affecti ng chronic April 21, 2025 1:07pm Anemia in preg-unspec acute Andre 2024 2:00pm Antepartum variable deceleration acute April 21, 2025 2:00pm Elevated liver enzymes acute Ju ne 2024 2:00pm Fatigue acute April 21 2:00pm Obesity affecting acute April 21, 2025 2:00pm acute April 21 2:00pm Rh negative status during acute April 21, 2025 2:00pm Supervision of high-risk acute April 21, 2025 2:00pm Thyroid disease acute March 2:00pm Thyroid disease affecting acute April 21, 2025 2:00pm Chronic hypertension affecti ng chronic April 21, 2025 2:00pm Anemia in preg-unspec acute Apr 1:05pm Antepartum variable deceleration acute April 28, 2025 1 :05pm Elevated liver enzymes acute Ju 2024 1:05pm Fatigue acute April 28, 2025 1:05pm Obesity affecting acute April 28, 2025 1:05pm acute April 28, 2025 1:05pm Rh negative status during acute April 28, 2025 1 :05pm Supervision of high-risk acute April 28, 2025 1 :05pm Thyroid disease acute April 28, 2025 1:05pm Thyroid disease affecting acute April 28, 2025 1 :05pm Chronic hypertension affecti ng chronic April 28, 2025 1 :05pm [facility] Work Phone: 1([phone]) 440-515103-20-2025 Evaluation note* Diagnosis Onset Date Resolution Status Admit Date Elevated liver enzymes acute Ma rch 2024 11:28am Fatigue acute January 09 11:28am Obesity affecting acute January 09, 2025 11:28am acute January 09 11:28am Rh negative status during acute January 09, 2025 11:28am Supervision of high-risk acute January 09, 2025 11:28am Thyroid disease acute December 11:28am Thyroid disease affecting acute January 09, 2025 11:28am Chronic hypertension affecti ng chronic January 09, 2025 11:28am Anemia in preg-unspec acute Apr il 2024 1:33pm Elevated liver enzymes acute Ap ril 2024 1:33pm Fatigue acute February 03 1:33pm Obesity affecting acute February 03, 2025 1:33pm acute February 03 1:33pm Rh negative status during acute February 03, 2025 1:33pm Supervision of high-risk acute February 03, 2025 1:33pm Thyroid disease acute January 1:33pm Thyroid disease affecting acute February 03, 2025 1:33pm Chronic hypertension affecti ng chronic February 03, 2025 1:33pm Anemia in preg-unspec acute February 24, 2025 1:00pm Elevated liver enzymes acute 2024 1:00pm Fatigue acute February 24, 2025 1:00pm Obesity affecting acute February 24, 2025 1:00pm acute February 24, 2025 1:00pm Rh negative status during acute February 24, 2025 1: 00pm Supervision of high-risk acute February 24, 2025 1: 00pm Thyroid disease acute February 24, 2025 1:00pm Thyroid disease affecting acute February 24, 2025 1: 00pm Chronic hypertension affecti ng chronic February 24, 2025 1: 00pm Anemia in preg-unspec acute March 12, 2025 11:45am Elevated liver enzymes acute Ma 2024 11:45am Fatigue acute March 12, 2025 11:45am Obesity affecting acute March 12, 2025 11:45am acute March 12, 2025 11:45am Rh negative status during acute March 12, 2025 1 1:45am Supervision of high-risk acute March 12, 2025 1 1:45am Thyroid disease acute March 12, 2025 11:45am Thyroid disease affecting acute March 12, 2025 1 1:45am Chronic hypertension affecti ng chronic March 12, 2025 1 1:45am Anemia in preg-unspec acute Mar 8:57am Elevated liver enzymes acute Ju 2024 8:57am Fatigue acute March 28, 2025 8:57am Obesity affecting acute March 28, 2025 8:57am acute March 28, 2025 8:57am Rh negative status during acute March 28, 2025 8 :57am Supervision of high-risk acute March 28, 2025 8 :57am Thyroid disease acute March 28, 2025 8:57am Thyroid disease affecting acute March 28, 2025 8 :57am Chronic hypertension affecti ng chronic March 28, 2025 8 :57am Anemia in preg-unspec acute Mar 11:01am Elevated liver enzymes acute Ju 2024 11:01am Fatigue acute March 31, 2025 11:01am Obesity affecting acute March 31, 2025 11:01am acute March 31, 2025 11:01am Rh negative status during acute March 31, 2025 1 1:01am Supervision of high-risk acute March 31, 2025 1 1:01am Thyroid disease acute March 31, 2025 11:01am Thyroid disease affecting acute March 31, 2025 1 1:01am Chronic hypertension affecti ng chronic March 31, 2025 1 1:01am Anemia in preg-unspec acute Mar 10:28am Elevated liver enzymes acute 2024 10:28am Fatigue acute April 08 10:28am Obesity affecting acute April 08, 2025 10:28am acute April 08 10:28am Rh negative status during acute April 08, 2025 10:28am Supervision of high-risk acute April 08, 2025 10:28am Thyroid disease acute March 10:28am Thyroid disease affecting acute April 08, 2025 10:28am Chronic hypertension affecti ng chronic April 08, 2025 10:28am Anemia in preg-unspec acute Mar 11:35am Elevated liver enzymes acute 2024 11:35am Fatigue acute April 14 11:35am Obesity affecting acute April 14, 2025 11:35am acute April 14 11:35am Rh negative status during acute April 14, 2025 11:35am Supervision of high-risk acute April 14, 2025 11:35am Thyroid disease acute March 11:35am Thyroid disease affecting acute April 14, 2025 11:35am Chronic hypertension affecti ng chronic April 14, 2025 11:35am Anemia in preg-unspec acute Mar 1:07pm Elevated liver enzymes acute Ju ne 2024 1:07pm Fatigue acute April 21 1:07pm Obesity affecting acute April 21, 2025 1:07pm acute April 21 1:07pm Rh negative status during acute April 21, 2025 1:07pm Supervision of high-risk acute April 21, 2025 1:07pm Thyroid disease acute March 1:07pm Thyroid disease affecting acute April 21, 2025 1:07pm Chronic hypertension affecti ng chronic April 21, 2025 1:07pm Anemia in preg-unspec acute Mar 2:00pm Antepartum variable deceleration acute April 21, 2025 2:00pm Elevated liver enzymes acute Ju ne 2024 2:00pm Fatigue acute April 21 2:00pm Obesity affecting acute April 21, 2025 2:00pm acute April 21 2:00pm Rh negative status during acute April 21, 2025 2:00pm Supervision of high-risk acute April 21, 2025 2:00pm Thyroid disease acute March 2:00pm Thyroid disease affecting acute April 21, 2025 2:00pm Chronic hypertension affecti ng chronic April 21, 2025 2:00pm Anemia in preg-unspec acute Apr 1:05pm Antepartum variable deceleration acute April 28, 2025 1 :05pm Elevated liver enzymes acute Ju ly 2024 1:05pm Fatigue acute April 28, 2025 1:05pm Obesity affecting acute April 28, 2025 1:05pm acute April 28, 2025 1:05pm Rh negative status during acute April 28, 2025 1 :05pm Supervision of high-risk acute April 28, 2025 1 :05pm Thyroid disease acute April 28, 2025 1:05pm Thyroid disease affecting acute April 28, 2025 1 :05pm Chronic hypertension affecti ng chronic April 28, 2025 1 :05pm Anemia in preg-unspec acute Apr 12:27pm Antepartum variable deceleration acute May 05, 2025 12:27pm Elevated liver enzymes acute Ju ly 2024 12:27pm Fatigue acute May 05 12:27pm Obesity affecting acute May 05, 2025 12:27pm acute May 05 12:27pm Rh negative status during acute May 05, 2025 12:27pm Supervision of high-risk acute May 05, 2025 12:27pm Thyroid disease acute April 12:27pm Thyroid disease affecting acute May 05, 2025 12:27pm Chronic hypertension affecti ng chronic May 05, 2025 12:27pm [facility] Work Phone: [phone]) 580-235902-20-2025 Evaluation note* Diagnosis Onset Date Resolution Status Admit Date Elevated liver enzymes acute Fe bru2024 3:49pm Fatigue acute December 12, 2024 3:49pm Obesity affecting acute December 12, 2024 3:49pm acute December 12, 2024 3:49pm Rh negative status during acute December 12, 025 3:49pm Supervision of high-risk acute December 12, 025 3:49pm Thyroid disease acute December 12, 2024 3:49pm Thyroid disease affecting acute December 12, 025 3:49pm Chronic hypertension affecti ng chronic December 12, 025 3:49pm Elevated liver enzymes acute [facility]2024 11:28am Fatigue acute January 09 11:28am Obesity affecting acute January 09, 2025 11:28am acute January 09 11:28am Rh negative status during acute January 09, 2025 11:28am Supervision of high-risk acute January 09, 2025 11:28am Thyroid disease acute December 11:28am Thyroid disease affecting acute January 09, 2025 11:28am Chronic hypertension affecti ng chronic January 09, 2025 11:28am Anemia in preg-unspec acute Apr 2024 1:33pm Elevated liver enzymes acute Ap ril 2024 1:33pm Fatigue acute February 03 1:33pm Obesity affecting acute February 03, 2025 1:33pm acute February 03 1:33pm Rh negative status during acute February 03, 2025 1:33pm Supervision of high-risk acute February 03, 2025 1:33pm Thyroid disease acute January 1:33pm Thyroid disease affecting acute February 03, 2025 1:33pm Chronic hypertension affecti ng chronic February 03, 2025 1:33pm Anemia in preg-unspec acute February 24, 2025 1:00pm Elevated liver enzymes acute 2024 1:00pm Fatigue acute February 24, 2025 1:00pm Obesity affecting acute February 24, 2025 1:00pm acute February 24, 2025 1:00pm Rh negative status during acute February 24, 2025 1: 00pm Supervision of high-risk acute February 24, 2025 1: 00pm Thyroid disease acute February 24, 2025 1:00pm Thyroid disease affecting acute February 24, 2025 1: 00pm Chronic hypertension affecti ng chronic February 24, 2025 1: 00pm Anemia in preg-unspec acute March 12, 2025 11:45am Elevated liver enzymes acute 2024 11:45am Fatigue acute March 12, 2025 11:45am Obesity affecting acute March 12, 2025 11:45am acute March 12, 2025 11:45am Rh negative status during acute March 12, 2025 1 1:45am Supervision of high-risk acute March 12, 2025 1 1:45am Thyroid disease acute March 12, 2025 11:45am Thyroid disease affecting acute March 12, 2025 1 1:45am Chronic hypertension affecti ng chronic March 12, 2025 1 1:45am Anemia in preg-unspec acute Mar 8:57am Elevated liver enzymes acute 2024 8:57am Fatigue acute March 28, 2025 8:57am Obesity affecting acute March 28, 2025 8:57am acute March 28, 2025 8:57am Rh negative status during acute March 28, 2025 8 :57am Supervision of high-risk acute March 28, 2025 8 :57am Thyroid disease acute March 28, 2025 8:57am Thyroid disease affecting acute March 28, 2025 8 :57am Chronic hypertension affecti ng chronic March 28, 2025 8 :57am [employer] Work Phone: 1([phone]) 947-329202-20-2025 Evaluation note* Diagnosis Onset Date Resolution Status Admit Date Elevated liver enzymes acute Fe bruary 2024 3:49pm Fatigue acute December 12, 2024 3:49pm Obesity affecting acute December 12, 2024 3:49pm acute December 12, 2024 3:49pm Rh negative status during acute December 12, 025 3:49pm Supervision of high-risk acute December 12, 025 3:49pm Thyroid disease acute December 12, 2024 3:49pm Thyroid disease affecting acute December 12, 025 3:49pm Chronic hypertension affecti ng chronic December 12, 025 3:49pm Elevated liver enzymes acute Ma rch 2024 11:28am Fatigue acute January 09 11:28am Obesity affecting acute January 09, 2025 11:28am acute January 09 11:28am Rh negative status during acute January 09, 2025 11:28am Supervision of high-risk acute January 09, 2025 11:28am Thyroid disease acute December 11:28am Thyroid disease affecting acute January 09, 2025 11:28am Chronic hypertension affecti ng chronic January 09, 2025 11:28am Anemia in preg-unspec acute Apr 2024 1:33pm Elevated liver enzymes acute Ap ril 2024 1:33pm Fatigue acute February 03 1:33pm Obesity affecting acute February 03, 2025 1:33pm acute February 03 1:33pm Rh negative status during acute February 03, 2025 1:33pm Supervision of high-risk acute February 03, 2025 1:33pm Thyroid disease acute January 1:33pm Thyroid disease affecting acute February 03, 2025 1:33pm Chronic hypertension affecti ng chronic February 03, 2025 1:33pm Anemia in preg-unspec acute February 24, 2025 1:00pm Elevated liver enzymes acute Ma y 2024 1:00pm Fatigue acute February 24, 2025 1:00pm Obesity affecting acute February 24, 2025 1:00pm acute February 24, 2025 1:00pm Rh negative status during acute February 24, 2025 1: 00pm Supervision of high-risk acute February 24, 2025 1: 00pm Thyroid disease acute February 24, 2025 1:00pm Thyroid disease affecting acute February 24, 2025 1: 00pm Chronic hypertension affecti ng chronic February 24, 2025 1: 00pm Anemia in preg-unspec acute March 12, 2025 11:45am Elevated liver enzymes acute Ma 2024 11:45am Fatigue acute March 12, 2025 11:45am Obesity affecting acute March 12, 2025 11:45am acute March 12, 2025 11:45am Rh negative status during acute March 12, 2025 1 1:45am Supervision of high-risk acute March 12, 2025 1 1:45am Thyroid disease acute March 12, 2025 11:45am Thyroid disease affecting acute March 12, 2025 1 1:45am Chronic hypertension affecti ng chronic March 12, 2025 1 1:45am Anemia in preg-unspec acute Mar 8:57am Elevated liver enzymes acute 2024 8:57am Fatigue acute March 28, 2025 8:57am Obesity affecting acute March 28, 2025 8:57am acute March 28, 2025 8:57am Rh negative status during acute March 28, 2025 8 :57am Supervision of high-risk acute March 28, 2025 8 :57am Thyroid disease acute March 28, 2025 8:57am Thyroid disease affecting acute March 28, 2025 8 :57am Chronic hypertension affecti ng chronic March 28, 2025 8 :57am Anemia in preg-unspec acute Mar 11:01am Elevated liver enzymes acute 2024 11:01am Fatigue acute March 31, 2025 11:01am Obesity affecting acute March 31, 2025 11:01am acute March 31, 2025 11:01am Rh negative status during acute March 31, 2025 1 1:01am Supervision of high-risk acute March 31, 2025 1 1:01am Thyroid disease acute March 31, 2025 11:01am Thyroid disease affecting acute March 31, 2025 1 1:01am Chronic hypertension affecti ng chronic March 31, 2025 1 1:01am [facility] Work Phone: [phone]) 716-137502-20-2025 Evaluation note* Diagnosis Onset Date Resolution Status Admit Date Elevated liver enzymes acute Fe bruary 2024 3:49pm Fatigue acute December 12, 2024 3:49pm Obesity affecting acute December 12, 2024 3:49pm acute December 12, 2024 3:49pm Rh negative status during acute December 12, 025 3:49pm Supervision of high-risk acute December 12, 025 3:49pm Thyroid disease acute December 12, 2024 3:49pm Thyroid disease affecting acute December 12, 025 3:49pm Chronic hypertension affecti ng chronic December 12, 025 3:49pm Elevated liver enzymes acute Ma rch 2024 11:28am Fatigue acute January 09 11:28am Obesity affecting acute January 09, 2025 11:28am acute January 09 11:28am Rh negative status during acute January 09, 2025 11:28am Supervision of high-risk acute January 09, 2025 11:28am Thyroid disease acute December 11:28am Thyroid disease affecting acute January 09, 2025 11:28am Chronic hypertension affecti ng chronic January 09, 2025 11:28am Anemia in preg-unspec acute Apr 2024 1:33pm Elevated liver enzymes acute Ap ril 2024 1:33pm Fatigue acute February 03 1:33pm Obesity affecting acute February 03, 2025 1:33pm acute February 03 1:33pm Rh negative status during acute February 03, 2025 1:33pm Supervision of high-risk acute February 03, 2025 1:33pm Thyroid disease acute January 1:33pm Thyroid disease affecting acute February 03, 2025 1:33pm Chronic hypertension affecti ng chronic February 03, 2025 1:33pm Anemia in preg-unspec acute February 24, 2025 1:00pm Elevated liver enzymes acute Ma y 2024 1:00pm Fatigue acute February 24, 2025 1:00pm Obesity affecting acute February 24, 2025 1:00pm acute February 24, 2025 1:00pm Rh negative status during acute February 24, 2025 1: 00pm Supervision of high-risk acute February 24, 2025 1: 00pm Thyroid disease acute February 24, 2025 1:00pm Thyroid disease affecting acute February 24, 2025 1: 00pm Chronic hypertension affecti ng chronic February 24, 2025 1: 00pm Anemia in preg-unspec acute March 12, 2025 11:45am Elevated liver enzymes acute Ma 2024 11:45am Fatigue acute March 12, 2025 11:45am Obesity affecting acute March 12, 2025 11:45am acute March 12, 2025 11:45am Rh negative status during acute March 12, 2025 1 1:45am Supervision of high-risk acute March 12, 2025 1 1:45am Thyroid disease acute March 12, 2025 11:45am Thyroid disease affecting acute March 12, 2025 1 1:45am Chronic hypertension affecti ng chronic March 12, 2025 1 1:45am Anemia in preg-unspec acute Mar 8:57am Elevated liver enzymes acute 2024 8:57am Fatigue acute March 28, 2025 8:57am Obesity affecting acute March 28, 2025 8:57am acute March 28, 2025 8:57am Rh negative status during acute March 28, 2025 8 :57am Supervision of high-risk acute March 28, 2025 8 :57am Thyroid disease acute March 28, 2025 8:57am Thyroid disease affecting acute March 28, 2025 8 :57am Chronic hypertension affecti ng chronic March 28, 2025 8 :57am Anemia in preg-unspec acute Mar 11:01am Elevated liver enzymes acute 2024 11:01am Fatigue acute March 31, 2025 11:01am Obesity affecting acute March 31, 2025 11:01am acute March 31, 2025 11:01am Rh negative status during acute March 31, 2025 1 1:01am Supervision of high-risk acute March 31, 2025 1 1:01am Thyroid disease acute March 31, 2025 11:01am Thyroid disease affecting acute March 31, 2025 1 1:01am Chronic hypertension affecti ng chronic March 31, 2025 1 1:01am Anemia in preg-unspec acute Mar 10:28am Elevated liver enzymes acute 2024 10:28am Fatigue acute April 08 10:28am Obesity affecting acute April 08, 2025 10:28am acute April 08 10:28am Rh negative status during acute April 08, 2025 10:28am Supervision of high-risk acute April 08, 2025 10:28am Thyroid disease acute March 10:28am Thyroid disease affecting acute April 08, 2025 10:28am Chronic hypertension affecti ng chronic April 08, 2025 10:28am [facility] Work Phone: [phone]) 848-594301-22-2025 Evaluation note* Diagnosis Onset Date Resolution Status Admit Date Elevated liver enzymes acute [facility] 2024 3:36pm Obesity affecting acute November 13, 2024 3:36pm acute November 13, 2024 3:36pm Rh negative status during acute November 13 3:36pm Supervision of high-risk acute November 13 3:36pm Thyroid disease acute October 242024 3:36pm Thyroid disease affecting acute November 13 3:36pm Chronic hypertension affecti ng chronic November 13 3:36pm Elevated liver enzymes acute [place] 2024 8:53am Obesity affecting acute November 19, 2024 8:53am acute November 19, 2024 8:53am Rh negative status during acute November 19 8:53am Supervision of high-risk acute November 19 8:53am Thyroid disease acute October 242024 8:53am Thyroid disease affecting acute November 19 8:53am Chronic hypertension affecti ng chronic November 19 8:53am Elevated liver enzymes acute [facility] 2024 3:49pm Fatigue acute December 12, 2024 3:49pm Obesity affecting acute December 12, 2024 3:49pm acute December 12, 2024 3:49pm Rh negative status during acute December 12 2 025 3:49pm Supervision of high-risk acute December 12 2 025 3:49pm Thyroid disease acute December 12, 2024 3:49pm Thyroid disease affecting acute December 12 2 025 3:49pm Chronic hypertension affecti ng chronic December 12 2 025 3:49pm Elevated liver enzymes acute [facility] 2024 11:28am Fatigue acute January 09 11:28am Obesity affecting acute January 09, 2025 11:28am acute January 09 11:28am Rh negative status during acute January 09, 2025 11:28am Supervision of high-risk acute January 09, 2025 11:28am Thyroid disease acute December 11:28am Thyroid disease affecting acute January 09, 2025 11:28am Chronic hypertension affecti ng chronic January 09, 2025 11:28am Anemia in preg-unspec acute Apr 2024 1:33pm Elevated liver enzymes acute Ap ril 2024 1:33pm Fatigue acute February 03 1:33pm Obesity affecting acute February 03, 2025 1:33pm acute February 03 1:33pm Rh negative status during acute February 03, 2025 1:33pm Supervision of high-risk acute February 03, 2025 1:33pm Thyroid disease acute January 1:33pm Thyroid disease affecting acute February 03, 2025 1:33pm Chronic hypertension affecti ng chronic February 03, 2025 1:33pm Anemia in preg-unspec acute February 24, 2025 1:00pm Elevated liver enzymes acute Ma y 2024 1:00pm Fatigue acute February 24, 2025 1:00pm Obesity affecting acute February 24, 2025 1:00pm acute February 24, 2025 1:00pm Rh negative status during acute February 24, 2025 1: 00pm Supervision of high-risk acute February 24, 2025 1: 00pm Thyroid disease acute February 24, 2025 1:00pm Thyroid disease affecting acute February 24, 2025 1: 00pm Chronic hypertension affecti ng chronic February 24, 2025 1: 00pm Anemia in preg-unspec acute March 12, 2025 11:45am Elevated liver enzymes acute Ma y 2024 11:45am Fatigue acute March 12, 2025 11:45am Obesity affecting acute March 12, 2025 11:45am acute March 12, 2025 11:45am Rh negative status during acute March 12, 2025 1 1:45am Supervision of high-risk acute March 12, 2025 1 1:45am Thyroid disease acute March 12, 2025 11:45am Thyroid disease affecting acute March 12, 2025 1 1:45am Chronic hypertension affecti ng chronic March 12, 2025 1 1:45am [facility] Work Phone: [phone]) [phone] Evaluation note* Diagnosis Onset Date Resolution Status Admit Date Fatigue acute November 06, 2024 2:58pm Obesity affecting acute November 06, 2024 2:58pm acute November 06, 2024 2:58pm Rh negative status during acute November 06 2:58pm Supervision of high-risk acute November 06 2:58pm Thyroid disease acute October 232024 2:58pm Thyroid disease affecting acute November 06 2:58pm Chronic hypertension affecti ng chronic November 06 2:58pm Elevated liver enzymes acute [place] 2024 3:36pm Obesity affecting acute November 13, 2024 3:36pm acute November 13, 2024 3:36pm Rh negative status during acute November 13 3:36pm Supervision of high-risk acute November 13 3:36pm Thyroid disease acute October 242024 3:36pm Thyroid disease affecting acute November 13 3:36pm Chronic hypertension affecti ng chronic November 13 3:36pm Elevated liver enzymes acute [place] 2024 8:53am Obesity affecting acute November 19, 2024 8:53am acute November 19, 2024 8:53am Rh negative status during acute November 19 8:53am Supervision of high-risk acute November 19 8:53am Thyroid disease acute October 242024 8:53am Thyroid disease affecting acute November 19 8:53am Chronic hypertension affecti ng chronic November 19 8:53am Elevated liver enzymes acute [facility] 2024 3:49pm Fatigue acute December 12, 2024 3:49pm Obesity affecting acute December 12, 2024 3:49pm acute December 12, 2024 3:49pm Rh negative status during acute February 20th, 2 025 3:49pm Supervision of high-risk acute December 12 025 3:49pm Thyroid disease acute December 12, 2024 3:49pm Thyroid disease affecting acute December 12 025 3:49pm Chronic hypertension affecti ng chronic December 12 025 3:49pm Elevated liver enzymes acute [facility] 2024 11:28am Fatigue acute January 09 11:28am Obesity affecting acute January 09, 2025 11:28am acute January 09 11:28am Rh negative status during acute January 09, 2025 11:28am Supervision of high-risk acute January 09, 2025 11:28am Thyroid disease acute December 11:28am Thyroid disease affecting acute January 09, 2025 11:28am Chronic hypertension affecti ng chronic January 09, 2025 11:28am Anemia in preg-unspec acute Apr 2024 1:33pm Elevated liver enzymes acute Ap ril 2024 1:33pm Fatigue acute February 03 1:33pm Obesity affecting acute February 03, 2025 1:33pm acute February 03 1:33pm Rh negative status during acute February 03, 2025 1:33pm Supervision of high-risk acute February 03, 2025 1:33pm Thyroid disease acute January 1:33pm Thyroid disease affecting acute February 03, 2025 1:33pm Chronic hypertension affecti ng chronic February 03, 2025 1:33pm Anemia in preg-unspec acute February 24, 2025 1:00pm Elevated liver enzymes acute Ma y 2024 1:00pm Fatigue acute February 24, 2025 1:00pm Obesity affecting acute February 24, 2025 1:00pm acute February 24, 2025 1:00pm Rh negative status during acute February 24, 2025 1: 00pm Supervision of high-risk acute February 24, 2025 1: 00pm Thyroid disease acute February 24, 2025 1:00pm Thyroid disease affecting acute February 24, 2025 1: 00pm Chronic hypertension affecti ng chronic February 24, 2025 1: 00pm [facility] Work Phone: 1([phone]) [phone] Evaluation note* Diagnosis Onset Date Resolution Status Admit Date Fatigue acute October 11, 2024 2:16pm Obesity affecting acute October 11, 2024 2:16pm acute October 11, 2024 2:16pm Rh negative status during acute October 11, 024 2:16pm Supervision of high-risk acute October 11, 2 024 2:16pm Thyroid disease affecting acute October 11, 024 2:16pm Chronic hypertension affecti ng chronic October 11, 024 2:16pm Fatigue acute October 25, 2 025 1:32pm Obesity affecting acute October 25, 2024 1:32pm acute October 25, 025 1:32pm Rh negative status during acute October 25 1:32pm Supervision of high-risk acute October 25 1:32pm Thyroid disease acute October 252024 1:32pm Thyroid disease affecting acute October 25 1:32pm Chronic hypertension affecti ng chronic October 25 1:32pm Fatigue acute November 06, 2024 2:58pm Obesity affecting acute November 06, 2024 2:58pm acute November 06, 2024 2:58pm Rh negative status during acute November 06 2:58pm Supervision of high-risk acute November 06 2:58pm Thyroid disease acute October 232024 2:58pm Thyroid disease affecting acute November 06 2:58pm Chronic hypertension affecti ng chronic November 06 2:58pm Elevated liver enzymes acute [facility] 2024 3:36pm Obesity affecting acute November 13, 2024 3:36pm acute November 13, 2024 3:36pm Rh negative status during acute November 13 3:36pm Supervision of high-risk acute November 13 3:36pm Thyroid disease acute October 242024 3:36pm Thyroid disease affecting acute November 13 3:36pm Chronic hypertension affecti ng chronic November 13 3:36pm Elevated liver enzymes acute [facility] 2024 8:53am Obesity affecting acute November 19, 2024 8:53am acute November 19, 2024 8:53am Rh negative status during acute November 19 8:53am Supervision of high-risk acute November 19 8:53am Thyroid disease acute October 242024 8:53am Thyroid disease affecting acute November 19 8:53am Chronic hypertension affecti ng chronic November 19 8:53am Elevated liver enzymes acute 2024 3:49pm Fatigue acute December 12, 2024 3:49pm Obesity affecting acute December 12, 2024 3:49pm acute December 12, 2024 3:49pm Rh negative status during acute December 12, 2 025 3:49pm Supervision of high-risk acute December 12, 2 025 3:49pm Thyroid disease acute December 12, 2024 3:49pm Thyroid disease affecting acute December 12, 2 025 3:49pm Chronic hypertension affecti ng chronic December 12, 2 025 3:49pm [facility] Work Phone: 1(839) 655-775612-20-2024 Evaluation note* Diagnosis Onset Date Resolution Status Admit Date Fatigue acute October 11, 2024 2:16pm Obesity affecting acute October 11, 2024 2:16pm acute October 11, 2024 2:16pm Rh negative status during acute October 11, 2 024 2:16pm Supervision of high-risk acute October 11, 2 024 2:16pm Thyroid disease affecting acute October 11, 2 024 2:16pm Chronic hypertension affecti ng chronic October 11, 2 024 2:16pm Fatigue acute October 25, 2 025 1:32pm Obesity affecting acute October 25, 2024 1:32pm acute October 25, 2 025 1:32pm Rh negative status during acute October 25 1:32pm Supervision of high-risk acute October 25 1:32pm Thyroid disease acute October 252024 1:32pm Thyroid disease affecting acute October 25 1:32pm Chronic hypertension affecti ng chronic October 25 1:32pm Fatigue acute November 06, 2024 2:58pm Obesity affecting acute November 06, 2024 2:58pm acute November 06, 2024 2:58pm Rh negative status during acute November 06 2:58pm Supervision of high-risk acute November 06 2:58pm Thyroid disease acute October 232024 2:58pm Thyroid disease affecting acute November 06 2:58pm Chronic hypertension affecti ng chronic November 06 2:58pm Elevated liver enzymes acute [facility] 2024 3:36pm Obesity affecting acute November 13, 2024 3:36pm acute November 13, 2024 3:36pm Rh negative status during acute November 13 3:36pm Supervision of high-risk acute November 13 3:36pm Thyroid disease acute October 242024 3:36pm Thyroid disease affecting acute November 13 3:36pm Chronic hypertension affecti ng chronic November 13 3:36pm Elevated liver enzymes acute [facility] 2024 8:53am Obesity affecting acute November 19, 2024 8:53am acute November 19, 2024 8:53am Rh negative status during acute November 19 8:53am Supervision of high-risk acute November 19 8:53am Thyroid disease acute October 242024 8:53am Thyroid disease affecting acute November 19 8:53am Chronic hypertension affecti ng chronic November 19 8:53am Elevated liver enzymes acute [facility] 2024 3:49pm Fatigue acute December 12, 2024 3:49pm Obesity affecting acute December 12, 2024 3:49pm acute December 12, 2024 3:49pm Rh negative status during acute December 12, 2 025 3:49pm Supervision of high-risk acute December 12 2 025 3:49pm Thyroid disease acute December 12, 2024 3:49pm Thyroid disease affecting acute December 12, 2 025 3:49pm Chronic hypertension affecti ng chronic December 12 2 025 3:49pm Elevated liver enzymes acute [facility] 2024 11:28am Fatigue acute January 09 11:28am Obesity affecting acute January 09, 2025 11:28am acute January 09 11:28am Rh negative status during acute January 09, 2025 11:28am Supervision of high-risk acute January 09, 2025 11:28am Thyroid disease acute December 11:28am Thyroid disease affecting acute January 09, 2025 11:28am Chronic hypertension affecti ng chronic January 09, 2025 11:28am [facility] Work Phone: Evaluation noteNo assessment information available [facility] Work Phone: Instructions* Name Dates Details Patient Instructions Indication:Nonsmoker Start:12-Oct-2021 Instruction Type:Provider Instructions for Treatment How to Access Health Informa tion Online using Patient Portal and [employer] Apps Indication:Nonsmoker Start:12-Oct-2021 Instruction Type:Patient Education [facility] Work Phone: instructions* Name Dates Details Patient Instructions Indication:Nonsmoker Start:12-Oct-2021 Instruction Type:Provider Instructions for Treatment How to Access Health Informa tion Online using Patient Portal and [employer] Apps Indication:Nonsmoker Start:12-Oct-2021 Instruction Type:Patient Education [facility]; [facility] Work Phone: instructions* Name Dates Details Patient Instructions Indication:Nonsmoker Start:12-Oct-2021 Instruction Type:Provider Instructions for Treatment How to Access Health Informa tion Online using Patient Portal and [employer] Apps Indication:Nonsmoker Start:12-Oct-2021 Instruction Type:Patient Education [facility]; [facility] Work Phone: instructions* Name Dates Details Patient Instructions Indication:Nonsmoker Start:12-Oct-2021 Instruction Type:Provider Instructions for Treatment How to Access Health Informa tion Online using Patient Portal and [employer] Indication:Nonsmoker Start:12-Oct-2021 Instruction Type:Patient Education [facility]; [facility] Work Phone: instructions* Name Dates Details Patient Instructions Indication:Nonsmoker Start:10-Oct-2022 Instruction Type:Provider Instructions for Treatment How to Access Health Informa tion Online using Patient Portal and [employer] Apps Indication:Nonsmoker Start:10-Oct-2022 Instruction Type:Patient Education Patient Instructions Indication:Nonsmoker Start:12-Oct-2021 Instruction Type:Provider Instructions for Treatment How to Access Health Informa tion Online using Patient Portal and [employer] Indication:Nonsmoker Start:12-Oct-2021 Instruction Type:Patient Education [facility]; [facility] Work Phone: instructions* Name Dates Details Patient Instructions Indication:Nonsmoker Start:10-Oct-2022 Instruction Type:Provider Instructions for Treatment How to Access Health Informa tion Online using Patient Portal and [employer] Indication:Nonsmoker Start:10-Oct-2022 Instruction Type:Patient Education Patient Instructions Indication:Nonsmoker Start:12-Oct-2021 Instruction Type:Provider Instructions for Treatment How to Access Health Informa tion Online using Patient Portal and [employer] Indication:Nonsmoker Start:12-Oct-2021 Instruction Type:Patient Education [facility]; [facility] Work Phone: instructions* Name Dates Details Patient Instructions Indication:Nonsmoker Start:10-Oct-2022 Instruction Type:Provider Instructions for Treatment How to Access Health Informa tion Online using Patient Portal and [employer] Indication:Nonsmoker Start:10-Oct-2022 Instruction Type:Patient Education Patient Instructions Indication:Nonsmoker Start:12-Oct-2021 Instruction Type:Provider Instructions for Treatment How to Access Health Informa tion Online using Patient Portal and [employer] Indication:Nonsmoker Start:12-Oct-2021 Instruction Type:Patient Education [facility]; [facility] Work Phone: instructions* Name Dates Details Patient Instructions Indication:Hypertension Start:22-Nov-2022 Instruction Type:Provider Instructions for Treatment How to Access Health Informa tion Online using Patient Portal and [employer] Indication:Hypertension Start:22-Nov-2022 Instruction Type:Patient Education Patient Instructions Indication:Nonsmoker Start:10-Oct-2022 Instruction Type:Provider Instructions for Treatment How to Access Health Informa tion Online using Patient Portal and [employer] Indication:Nonsmoker Start:10-Oct-2022 Instruction Type:Patient Education Patient Instructions Indication:Nonsmoker Start:12-Oct-2021 Instruction Type:Provider Instructions for Treatment How to Access Health Informa tion Online using Patient Portal and [employer] Indication:Nonsmoker Start:12-Oct-2021 Instruction Type:Patient Education [facility]; [facility] Work Phone: instructions* Name Dates Details Patient Instructions Indication:Hypertension Start:22-Nov-2022 Instruction Type:Provider Instructions for Treatment How to Access Health Informa tion Online using Patient Portal and [employer] Indication:Hypertension Start:22-Nov-2022 Instruction Type:Patient Education Patient Instructions Indication:Nonsmoker Start:10-Oct-2022 Instruction Type:Provider Instructions for Treatment How to Access Health Informa tion Online using Patient Portal and [employer] Indication:Nonsmoker Start:10-Oct-2022 Instruction Type:Patient Education Patient Instructions Indication:Nonsmoker Start:12-Oct-2021 Instruction Type:Provider Instructions for Treatment How to Access Health Informa tion Online using Patient Portal and [employer] Indication:Nonsmoker Start:12-Oct-2021 Instruction Type:Patient Education [facility]; [facility] Work Phone: Inssaspnions* Name Dates Details Patient Instructions Indication:Hypertension Start:22-Nov-2022 Instruction Type:Provider Instructions for Treatment How to Access Health Informa tion Online using Patient Portal and [employer] Indication:Hypertension Start:22-Nov-2022 Instruction Type:Patient Education Patient Instructions Indication:Nonsmoker Start:10-Oct-2022 Instruction Type:Provider Instructions for Treatment How to Access Health Informa tion Online using Patient Portal and [employer] Indication:Nonsmoker Start:10-Oct-2022 Instruction Type:Patient Education Patient Instructions Indication:Nonsmoker Start:12-Oct-2021 Instruction Type:Provider Instructions for Treatment How to Access Health Informa tion Online using Patient Portal and [employer] Indication:Nonsmoker Start:12-Oct-2021 Instruction Type:Patient Education [facility]; [facility] Work Phone: Instructions* Name Dates Details Patient Instructions Indication:Hypertension Start:22-Nov-2022 Instruction Type:Provider Instructions for Treatment How to Access Health Informa tion Online using Patient Portal and [employer] Indication:Hypertension Start:22-Nov-2022 Instruction Type:Patient Education Patient Instructions Indication:Nonsmoker Start:10-Oct-2022 Instruction Type:Provider Instructions for Treatment How to Access Health Informa tion Online using Patient Portal and [employer] Indication:Nonsmoker Start:10-Oct-2022 Instruction Type:Patient Education Patient Instructions Indication:Nonsmoker Start:12-Oct-2021 Instruction Type:Provider Instructions for Treatment How to Access Health Informa tion Online using Patient Portal and [employer] Indication:Nonsmoker Start:12-Oct-2021 Instruction Type:Patient Education [facility]; [facility] Work Phone: Instructions* Name Dates Details Patient Instructions Indication:Hypertension Start:17-Apr-2023 Instruction Type:Provider Instructions for Treatment How to Access Health Informa tion Online using Patient Portal and [employer] Indication:Hypertension Start:17-Apr-2023 Instruction Type:Patient Education Patient Instructions Indication:Hypertension Start:22-Nov-2022 Instruction Type:Provider Instructions for Treatment How to Access Health Informa tion Online using Patient Portal and [employer] Indication:Hypertension Start:22-Nov-2022 Instruction Type:Patient Education Patient Instructions Indication:Nonsmoker Start:10-Oct-2022 Instruction Type:Provider Instructions for Treatment How to Access Health Informa tion Online using Patient Portal and [employer] Indication:Nonsmoker Start:10-Oct-2022 Instruction Type:Patient Education Patient Instructions Indication:Nonsmoker Start:12-Oct-2021 Instruction Type:Provider Instructions for Treatment How to Access Health Informa tion Online using Patient Portal and [employer] Indication:Nonsmoker Start:12-Oct-2021 Instruction Type:Patient Education [facility]; [facility] Work Phone: progress note Author Tiffanie Bey [facility] Note Date/Time March 12, 2025 12:18 pm [facility]'[address], [address] [place] [address] OFFICE VISIT Date of Service: 03/12/25 MR#: [id number] Acct: [id number] Name: RUSSOMICHELINE SAMANTHA Rep #: [id number] : 1995 Provider: Dr. Monserrat Lepe DO Age/Sex: 30/F [place] [facility] [place]: Signed Intake Vital Signs 01/09/25 11:30 02/03/25 13:36 02/24/25 13:27 03/12/25 11:47 03/12/25 11:48 Height 5 ft 4 in 5 ft 4 in 5 ft 4 in 5 ft 4 in 5 ft 4 in Weight: 196 lb 2 oz BMI 33.6 BP 138/84 H Intake Visit Reasons: 30wk ob Poker Manager Required: No Is patient in pain?: No Allergies No Known Allergies Allergy (Verified 03/12/25 11:47) Medications ?Medication ?Instructions ?Recorded ?Confirmed ?Type multivit-min no.71-iron fum 28 cap PO 10/10/24 5 History mg-folate no.1 1 mg-dha 300 mg capsule (PNV-[place]) labetalol 200 mg tablet 100 mg PO TID 10/25/2403/12 History Last Menstrual Period: 08/14/24 Zika: Zika virus screening: Negative : No PFSH PFSH Medical History Former smoker, stopped smoking in distant past Seasonal allergies Ovarian cyst Hypertension Thyroid disease Anemia History of hemorrhoids Shortness of breath Surgical History History of appendectomy S/P wisdom tooth extraction No significant past surgical history Family History Father Myocardial infarction Grandfather Myocardial infarction Hypertension Uncle Myocardial infarction Mother Hypertension Social History adopted: No household members: significant other and children housing: house number of children: 2 current occupational status: employed current occupation: [employer] pets and animals: Yes (Avoids litterbox) pets and animals: cat(s) history of recent travel: No sexually active: Yes Smoking Status: Former smoker how long ago did patient quit smokinyears ago alcohol intake: current alcohol intake frequency: holidays/special occasions only details: not while substance use type: does not use well-balanced diet: daily or most days caffeine: No eating out: 1-3 times/week during the past year weight has: remained stable what type of physical activity do you participate in: none pelon/scientology: None seatbelt use: always do you feel safe at home: Yes additional social history: BF Eliezer- Hina working at [employer], [employer] History 5 Elective abortions Hx Para 3 Spontaneous abortions 1 Hx # Term Pregnancies 3 Ectopic pregnancies Hx # Pregnancies Multiple births # of living children 3 Past Pregnancies Del. Date Name GA/Weeks Outcome Route Bth Weight Gen Labor Lgth Anesthesia Del Locatn Provider FOB Unknown 2013-Serge 40 live - full term 6lbs 15o Male none [facility] Unknown 2016-Dominic 40 live - full term 8lbs 7o Male none [facility] Unknown 2020 Miscarriage 7 spontaneous 11/08/19 surrogate live - full term [facility] Dr. Abby Carreon Delivery Date: 11/08/19 Last Updated by: Maribel Clark Surrogate HPI 30wk ob Details: MICHELINE RUSSO is a 30 year old who presents for routine OB visit. OB Visit [facility] Calculator Estimated Delivery Date Method Current WG Current Estimate 05/21/25 LMP (Certain) 30w 0d Expected Delivery Route/Plan Labor Preferences- CB/BF classes: no labor support person: Dave labor intervention preferences: [] pain management options preferred: limited cut cord/dad catch: yes : yes PP control planned: discussed discussed possible routes of delivery and associated risks: [] special requests: [] Specific Issue/Plans Covid status: [] Flu vaccine: [] Tdap vaccine: [] Rhogam: NA, baby Rh neg LARC form signed: yes Problem list reviewed and updated with the most current plan of care details and appropriate orders placed. Relevant counseling for the gestational age provided. Continue routine care and follow up unless otherwise noted in visit notes/problem list details Initial Weight: 187 lb Date -?-?-?-?-?-?-?-?-?-?-?-?- EGA Weight BP Urine Prot -?-?-?-?-?-?-?-?-?-?-?-?- Glucose FHR FuHt Pres Dilation -?-?-?-?-?-?-?-?-?-?-?-?- Effaced St Visit Note 10/11/24 -?-?-?-?-?-?-?-?-?-?-?-?- 8w 2d 187 lb (+0 oz) 143/84 -?-?-?-?-?-?-?-?-?-?-?-?- 186 -?-?-?-?-?-?-?-?-?-?-?-?- LC- CRL 1.47 con with LMP. desires nipt. thyroid normal, no longer on medications.chronic htn on labetolol. 11/06/24 -?-?-?-?-?-?-?-?-?-?-?-?- 12w 0d 189 lb (+2 lb) 141/94 Negative -?-?-?-?-?-?-?-?-?-?-?-?- Negative -?-?-?-?-?-?-?-?-?-?-?-?- JV- pt here for nursing visit. still with elevated pressures. Starting procardia and close follow up. pt states that she has been on 5 or 6 different blood pressure medications. when she goes above 100 of labetalol her pressure drops too low. if now improvement with procardia will need to consult cardiology or at least primary care for bp assistance. 11/13/24 -?-?-?-?-?-?-?-?-?-?-?-?- 13w 0d 190 lb (+3 lb) 144/91 Negative -?-?-?-?-?-?-?-?-?-?-?-?- Negative 166 -?-?-?-?-?-?-?-?-?-?-?-?- MH-No VB. Br US confirm FHT. Not taking procardia/can't swallow it. States home BPs nl when takes labetalol 100mg tid but missed dose today. Had CMP per employee health today and minimally elevated AST/ALT. Stressed importance of tid dosing and risks of uncontrolled HTN. MFM consult. RTO 1 week 12/12/24 -?-?-?-?-?-?-?-?-?-?-?-?- 17w 1d 187 lb 4 oz (+4 oz) 123/77 Negative -?-?-?-?-?-?-?-?-?-?-?-?- Negative 150 -?-?-?-?-?-?-?-?-?-?-?-?- SM- no vb lof cr amping 01/09/25 -?-?-?-?-?-?-?-?-?-?-?-?- 21w 1d 191 lb (+4 lb) 135/86 Negative -?-?-?-?-?-?-?-?-?-?-?-?- Negative 151 -?-?-?-?-?-?-?-?-?-?-?-?- JV- no complaint s today. rpt cmp and cbc today. lft's have been trending down. 02/03/25 -?-?-?-?-?-?-?-?-?-?-?-?- 24w 5d 191 lb 6 oz (+4 lb 6 oz) 126/84 Negative -?-?-?-?-?-?-?-?-?-?-?-?- Negative 160 25 -?-?-?-?-?-?-?-?-?-?-?-?- KW- no vb/lof/ct x. good fm. is having some lower BPs (90/60) at home but not symptomatic. pepcid for heart burn. glucose next visit. 02/24/25 -?-?-?-?-?-?-?-?-?-?-?-?- 27w 5d 190 lb 4 oz (+3 lb 4 oz) 124/77 Negative -?-?-?-?-?-?-?-?-?-?-?-?- Negative 154 28 -?-?-?-?-?-?-?-?-?-?-?-?- MH-No VB. Good F m 28 wk labs pending. Larc. Discussed need for weekly NST, BPP and also growth US Q4wk at 32 wk. 03/12/25 -?-?-?-?-?-?-?-?-?-?-?-?- 30w 0d 196 lb 2 oz (+9 lb 2 oz) 138/84 Negative -?-?-?-?-?-?-?-?-?-?-?-?- Negative 145 30 -?-?-?-?-?-?-?-?-?-?-?-?- JV-no lof, vag b leeding or dec fm.needs growth us 32 and 36 weeks. still on labetalol.importance of iol discussed and she wants to try to avoid that. Will look forward to MFM explaining to her. JV-no lof, vag bleeding or d ec fm.needs growth us 32 and 36 weeks. still on labetalol.importance of iol discussed and she wants to try to avoid that. Will look forward to MFM explaining to her. needs tsh next visit [facility] First Trimester First Trimester: Discussed Second Trimester Second Trimester: Signs and Symptoms of Labor, Selecting a care provider, Reproductive Life Planning & Contreception, Care Planning, Tobacco Cessation, Depression/Anxiety and Intimate Partner Violence Third Trimester Third Trimester: Pain Management Plans, Labor support person(s), Immediate Larc, Movement Monitoring and Infant Feeding No ; Discussed Trial of Labor after Counseling and Discussed Circumcision preference Results POC Urinalysis 2 Dip (Clinic) Office Urine Glucose Negative Last Edit by Maribel Clark on 03/12/25 11: 55 Office Urine Protein Negative Last Edit by Maribel Clark on 03/12/25 11: 55 Coding Level of Care Code OB Routine Diagnoses Anemia during in second trimester O99.012 Trimester: second trimester Elevated liver enzymes R74.8 Chronic hypertension affecting O10.919 Thyroid disease E07.9 Obesity affecting in second trimester, unspecified obesity type O99.212 Obesity type affecting : unspecified obesity Trimester: second trimester 30 weeks gestation of Z3A.30 Weeks of gestation: 30 weeks Rh negative status during in second trimester O26.892; Z67.91 Trimester: second trimester Supervision of high risk in second trimester O09.92 Trimester: second trimester Thyroid disease affecting O99.280; E07.9 Fatigue, unspecified type R53.83 Fatigue type: unspecified Assessment and Plan Assessment and Plan (1) Anemia in preg-unspec: Status: Acute Qualifiers: Trimester: second trimester Qualified Code(s): O99.012 - Anemia complicating , second trimester Comment: SlowFe (2) Elevated liver enzymes: Status: Acute Comment: mild. decreasing. (3) Chronic hypertension affecting : Status: Chronic Comment: increased labetalol to 200mg Tid caused near syncope. Can't swallow procardia. Labetalol 100mg tid. RTO 1 wk BP check. MFM consult. Misses doses/discussed importance. No headache/vision changes. baseline pec labs asa 81mg at 10 weeks. 32 wk:NST and BPP weekly plus Growth Q4wk mfm for anatomy (4) Thyroid disease: Status: Acute Comment: not on any medications, was on previous during surrogacy. (5) Obesity affecting : Status: Acute Qualifiers: Obesity type affecting : unspecified obesity Trimester: second trimester Qualified Code(s): O99.212 - Obesity complicating , second trimester Comment: HgbA1c (6) : Status: Acute Qualifiers: Weeks of gestation: 30 weeks Qualified Code(s): Z3A.30 - 30 weeks gestation of Comment: NIPT low risk(NO GENDER) carrier neg. . nl anatomy. (7) Rh negative status during : Status: Acute Qualifiers: Trimester: second trimester Qualified Code(s): O26.892 - Other specified related conditions, second trimester; Z67.91 - Unspecified blood type, Rh negative Comment: Rhogam @ 28 wks & PRN Bleeding. Baby is Rh- per Stephy results (8) Supervision of high-risk : Status: Acute Qualifiers: Trimester: second trimester Qualified Code(s): O09.92 - Supervision of high risk , unspecified, second trimester Comment: [id number](1 child was surrogate),GLENN 05/21/25, Dominic Melendez, ANTIONE Martins (9) Thyroid disease affecting : Status: Acute Comment: normal labs (10) Fatigue: Status: Acute Qualifiers: Fatigue type: unspecified Qualified Code(s): R53.83 - Other fatigue Orders: Orders POC Urinalysis 2 Dip (Clinic) Today Thyroid Stim Hormone (TSH) Today R74.8 - Abnormal levels of other serum enzymes T4 Free Direct Today R74.8 - Abnormal levels of other serum enzymes 03/12/25 1218 <Electronically signed by Tiffanie Hubbard DO> Date _ Tiffanie Lepe DO Cosigner Signature: Date (if applicable) CC: ~ [facility] Work Phone: Proprdrk note Author Joyce Bolanos [facility] Note Date/Time March 28, 2025 9:25a m [facility] [address], [address] [place] [address] OFFICE VISIT Date of Service: 03/28/25 MR#: [id number] Acct: [id number] Name: MICHELINE RUSSO Rep #: [id number] : 1995 Provider: KATY Bolanos Age/Sex: 30/F [place] [facility] [place] [facility] [place] Status: Signed Intake Vital Signs 03/12/25 11:48 03/24/25 15:03 03/28/25 08:59 Height 5 ft 4 in 5 ft 4 in 5 ft 4 in Weight: 194 lb 2 oz BMI 33.3 BP 132/77 H Intake Visit Reasons: NST per KW *growth US at 0800 Poker Manager Required: No Is patient in pain?: No Allergies No Known Allergies Allergy (Verified 03/28/25 08:59) Medications ?Medication ?Instructions ?Recorded ?Confirmed ?Type multivit-min no.71-iron fum 28 cap PO 10/10/24 5 History mg-folate no.1 1 mg-dha 300 mg capsule (PNV-[place]) labetalol 200 mg tablet 100 mg PO TID 10/25/2403/28 History famotidine 20 mg tablet (Pepcid) 20 mg PO BID #60 tabs 03/12/25 03/28/25 Rx Last Menstrual Period: 08/14/24 Zika: Zika virus screening: Negative : No Have you fallen in the past year?: No PFSH PFSH Medical History Former smoker, stopped smoking in distant past Seasonal allergies Ovarian cyst Hypertension Thyroid disease Anemia History of hemorrhoids Shortness of breath Surgical History History of appendectomy S/P wisdom tooth extraction No significant past surgical history Family History Father Myocardial infarction Grandfather Myocardial infarction Hypertension Uncle Myocardial infarction Mother Hypertension Social History adopted: No household members: significant other and children housing: house number of children: 2 current occupational status: employed current occupation: [employer] pets and animals: Yes (Avoids litterbox) pets and animals: cat(s) history of recent travel: No sexually active: Yes Smoking Status: Former smoker how long ago did patient quit smokinyears ago alcohol intake: current alcohol intake frequency: holidays/special occasions only details: not while substance use type: does not use well-balanced diet: daily or most days caffeine: No eating out: 1-3 times/week during the past year weight has: remained stable what type of physical activity do you participate in: none pelon/scientology: None seatbelt use: always do you feel safe at home: Yes additional social history: BF Eliezer- [employer] working at [employer] History 5 Elective abortions Hx Para 3 Spontaneous abortions 1 Hx # Term Pregnancies 3 Ectopic pregnancies Hx # Pregnancies Multiple births # of living children 3 Past Pregnancies Del. Date Name GA/Weeks Outcome Route Bth Weight Infant Gen Labor Lgth Anesthesia Del Locatn Provider FOB Unknown 2013-Serge 40 live - full term 6lbs 15o Male none [facility] Unknown 2016-Dominic 40 live - full term 8lbs 7o Male none [facility] Unknown 2020 Miscarriage 7 spontaneous 11/08/19 surrogate live - full term [facility] Dr. Abby Carreon Delivery Date: 11/08/19 Last Updated by: Maribel Clark Surrogate HPI NST per KW *growth US at 0800 Details: MICHELINE RUSSO is a 30 year old who presents for routine OB visit. OB Visit GLENN Calculator Estimated Delivery Date Method Current WG Current Estimate 05/21/25 LMP (Certain) 32w 2d Expected Delivery Route/Plan Labor Preferences- CB/BF classes: no labor support person: Dave labor intervention preferences: [] pain management options preferred: limited cut cord/dad catch: yes : yes PP control planned: discussed discussed possible routes of delivery and associated risks: [] special requests: [] Specific Issue/Plans Covid status: [] Flu vaccine: [] Tdap vaccine: [] Rhogam: NA, baby Rh neg LARC form signed: yes Problem list reviewed and updated with the most current plan of care details and appropriate orders placed. Relevant counseling for the gestational age provided. Continue routine care and follow up unless otherwise noted in visit notes/problem list details Initial Weight: 187 lb Date -?-?-?-?-?-?-?-?-?-?-?-?- EGA Weight BP Urine Prot -?-?-?-?-?-?-?-?-?-?-?-?- Glucose FHR FuHt Pres Dilation -?-?-?-?-?-?-?-?-?-?-?-?- Effaced St Visit Note 10/11/24 -?-?-?-?-?-?-?-?-?--?-?-?- 8w 2d 187 lb (+0 oz) 143/84 -?-?-?-?-?-?-?-?-?-?-?-?- 186 -?-?-?-?-?-?-?-?-?-?-?-?- LC- CRL 1.47 con with LMP. desires nipt. thyroid normal, no longer on medications.chronic htn on labetolol. 11/06/24 -?-?-?-?-?-?-?-?-?-?-?-?- 12w 0d 189 lb (+2 lb) 141/94 Negative -?-?-?-?-?-?-?-?-?-?-?-?- Negative -?-?-?-?-?-?-?-?-?-?-?-?- JV- pt here for nursing visit. still with elevated pressures. Starting pr ocardia and close follow up. pt states that she has been on 5 or 6 different blood pressure medications. when she goes above 100 of labetalol her pressure drops too low. if now improvement with procardia will need to consult cardiology or at least primary care for bp assistance. 11/13/24 -?-?-?-?-?-?-?-?-?-?-?-?- 13w 0d 190 lb (+3 lb) 144/91 Negative -?-?-?-?-?-?-?-?-?-?-?-?- Negative 166 -?-?-?-?-?-?-?-?-?-?-?-?- MH-No VB. Br US confirm FHT. Not taking procardia/can't swallow it. States home BPs nl when takes labetalol 100mg tid but missed dose today. Had CMP per employee health today and minimally elevated AST/ALT. Stressed importance of tid dosing and risks of uncontrolled HTN. MFM consult. RTO 1 week 12/12/24 -?-?-?-?-?-?-?-?-?-?-?-?- 17w 1d 187 lb 4 oz (+4 oz) 123/77 Negative -?-?-?-?-?-?-?-?-?-?-?-?- Negative 150 -?-?-?-?-?-?-?-?-?-?-?-?- SM- no vb lof cr amping 01/09/25 -?-?-?-?-?-?-?-?-?-?-?-?- 21w 1d 191 lb (+4 lb) 135/86 Negative -?-?-?-?-?-?-?-?-?-?-?-?- Negative 151 -?-?-?-?-?-?-?-?-?-?-?-?- JV- no complaint s today. rpt cmp and cbc today. lft's have been trending down. 02/03/25 -?-?-?-?-?-?-?-?-?-?-?-?- 24w 5d 191 lb 6 oz (+4 lb 6 oz) 126/84 Negative -?-?-?-?-?-?-?-?-?-?-?-?- Negative 160 25 -?-?-?-?-?-?-?-?-?-?-?-?- KW- no vb/lof/ct x. good fm. is having some lower BPs (90/60) at home but not symptomatic. pepcid for heart burn. glucose next visit. 02/24/25 -?-?-?-?-?-?-?-?-?-?-?-?- 27w 5d 190 lb 4 oz (+3 lb 4 oz) 124/77 Negative -?-?-?-?-?-?-?-?-?-?-?-?- Negative 154 28 -?-?-?-?-?-?-?-?-?-?-?-?- MH-No VB. Good F m 28 wk labs pending. Larc. Discussed need for weekly NST, BPP and also growth US Q4wk at 32 wk. 03/12/25 -?-?-?-?-?-?-?-?-?-?-?-?- 30w 0d 196 lb 2 oz (+9 lb 2 oz) 138/84 Negative -?-?-?-?-?-?-?-?-?-?-?-?- Negative 145 30 -?-?-?-?-?-?-?-?-?-?-?-?- JV-no lof, vag b leeding or dec fm.needs growth us 32 and 36 weeks. still on labetalol.importance of iol discussed and she wants to try to avoid that. Will look forward to MFM explaining to her. JV-no lof, vag bleeding or d ec fm.needs growth us 32 and 36 weeks. still on labetalol.importance of iol discussed and she wants to try to avoid that. Will look forward to MFM explaining to her. needs tsh next visit 03/28/25 -?-?-?-?-?-?-?-?-?-?-?-?- 32w 2d 194 lb 2 oz (+7 lb 2 oz) 132/77 Trace -?-?-?-?-?-?-?-?-?-?-?-?- 250 g/dL 140 -?-?-?-?-?-?-?-?-?-?-?-?- KW- NST only. ur ine very concentrated and reports little to drink today. ACOG First Trimester First Trimester: Discussed Second Trimester Second Trimester: Signs and Symptoms of Labor, Selecting a care provider, Reproductive Life Planning & Contreception, Care Planning, Tobacco Cessation, Depression/Anxiety and Intimate Partner Violence Third Trimester Third Trimester: Pain Management Plans, Labor support person(s), Immediate Larc, Movement Monitoring and Infant Feeding No ; Discussed Trial of Labor after Counseling and Discussed Circumcision preference ROS Const Reports system reviewed and no additional complaints, except as documented Eyes Reports system reviewed and no additional complaints, except as documented ENT Reports system reviewed and no additional complaints, except as documented Card Reports system reviewed and no additional complaints, except as documented Resp Reports system reviewed and no additional complaints, except as documented GI Reports system reviewed and no additional complaints, except as documented, Denies nausea and Denies vomiting Reports system reviewed and no additional complaints, except as documented Musc Reports system reviewed and no additional complaints, except as documented Skin/Breast Reports system reviewed and no additional complaints, except as documented Neuro Yes system reviewed and no additional complaints, except as documented Psych Reports system reviewed and no additional complaints, except as documented Endo Reports system reviewed and no additional complaints, except as documented Malik/Lymph Reports system reviewed and no additional complaints, except as documented Aller/Immun Reports system reviewed and no additional complaints, except as documented Exam Const General: cooperative, healthy appearing and no acute distress Orientation: alert, awake and oriented x3 Neck Neck: normal visual inspection and full ROM Resp Effort & Inspection: normal respiratory effort, able to speak in complete sentences and symmetric chest movement GI Inspection: normal to inspection Palpation: soft and other Other: gravid Skin General: no rashes or lesions noted Neuro General: patient alert, patient awake and patient oriented x3 Cognition: normal cognition Speech: speech normal Gait: normal gait Motor: muscle tone normal throughout Extrem General: normal to inspection and full ROM Psych Appearance: grossly normal Mental Status: mental status grossly normal Mood: congruent mood Affect: normal affect Speech and Movement: speech and movement normal Attitude: cooperative Thought Process: normal Thought Content: normal Judgment: judgment good Office Procedures Non-stress Test Non-Stress Test Indications for Monitoring: Yes hypertension Heart Rate Baseline: 140 Heart Rate Variability: moderate Movement: Present Heart Rate Accelerations: Present Decelerations: Absent Contractions: Absent Impression: Yes Reactive Non-Stress Test Results POC Urinalysis 2 Dip (Clinic) Office Urine Glucose 250 g/dL Last Edit by Vanessa Pressley on 03/28/25 09:15 Office Urine Protein Trace Last Edit by Vanessa Pressley on 03/28/25 09:15 Coding Level of Care Code OB Routine Diagnoses Anemia during in second trimester O99.012 Trimester: second trimester Elevated liver enzymes R74.8 Chronic hypertension affecting O10.919 Thyroid disease E07.9 Obesity affecting in second trimester, unspecified obesity type O99.212 Obesity type affecting : unspecified obesity Trimester: second trimester 32 weeks gestation of Z3A.32 Weeks of gestation: 32 weeks Rh negative status during in second trimester O26.892; Z67.91 Trimester: second trimester Supervision of high risk in second trimester O09.92 Trimester: second trimester Thyroid disease affecting O99.280; E07.9 Fatigue, unspecified type R53.83 Fatigue type: unspecified CPT Codes Non-Stress Test (14282) Assessment and Plan Assessment and Plan (1) Anemia in preg-unspec: Status: Acute Qualifiers: Trimester: second trimester Qualified Code(s): O99.012 - Anemia complicating , second trimester Comment: SlowFe (2) Elevated liver enzymes: Status: Acute Comment: mild. decreasing. (3) Chronic hypertension affecting : Status: Chronic Comment: increased labetalol to 200mg Tid caused near syncope. Can't swallow procardia. Labetalol 100mg tid. RTO 1 wk BP check. MFM consult. Misses doses/discussed importance. No headache/vision changes. baseline pec labs asa 81mg at 10 weeks. 32 wk:NST and BPP weekly plus Growth Q4wk mfm for anatomy (4) Thyroid disease: Status: Acute Comment: not on any medications, was on previous during surrogacy. (5) Obesity affecting : Status: Acute Qualifiers: Obesity type affecting : unspecified obesity Trimester: second trimester Qualified Code(s): O99.212 - Obesity complicating , second trimester Comment: HgbA1c (6) : Status: Acute Qualifiers: Weeks of gestation: 32 weeks Qualified Code(s): Z3A.32 - 32 weeks gestation of Comment: NIPT low risk(NO GENDER) carrier neg. . nl anatomy. (7) Rh negative status during : Status: Acute Qualifiers: Trimester: second trimester Qualified Code(s): O26.892 - Other specified related conditions, second trimester; Z67.91 - Unspecified blood type, Rh negative Comment: Rhogam @ 28 wks & PRN Bleeding. Baby is Rh- per Stephy results (8) Supervision of high-risk : Status: Acute Qualifiers: Trimester: second trimester Qualified Code(s): O09.92 - Supervision of high risk , unspecified, second trimester Comment: [id number](1 child was surrogate),GLENN 05/21/25, Dominic Melendez, ANTIONE Martins (9) Thyroid disease affecting : Status: Acute Comment: normal labs (10) Fatigue: Status: Acute Qualifiers: Fatigue type: unspecified Qualified Code(s): R53.83 - Other fatigue Orders: Orders OB NST Today O10.919 - Unspecified pre-existing hypertension complicating , unspecified trimester POC Urinalysis 2 Dip (Clinic) Today Plan Details Additional Comments: ACOG trimester education reviewed and updated. see problem list details for updated plan management information and see below for orders placed at this visit. GA appropriate handout given. Clinical Quality Measures Falls Risk Screening/Assistive Devices Have you fallen in the past year?: No 03/28/25 9915 <Electronically signed by Joyce shaikh CNM> Date _ Joyce Bolanos CNM Cosigner Signature: Date (if applicable) CC: ~ [facility] Work Phone: Progress note Author Tiffanie Bey [facility] Note Date/Time April 08, 2025 11:2 4am [facility] [address] [place] [address], [address] [place] [address] OFFICE VISIT Date of Service: 04/08/25 MR#: [id number] Acct: [id number] Name: MICHELINE RUSSO #: [id number] : 1995 Provider: Dr. Monserrat Lepe DO Age/Sex: 30/F [place] [facility] [place] Status: Signed Intake Vital Signs 02/24/25 13:05 03/31/25 11:12 04/08/25 10:35 Height 5 ft 4 in 5 ft 4 in 5 ft 4 in Weight: 197 lb 8 oz BMI 33.9 BP 131/89 H Intake Visit Reasons: 34 wk ob/nst Poker Manager Required: No Is patient in pain?: No Allergies No Known Allergies Allergy (Verified 04/08/25 10:35) Medications ?Medication ?Instructions ?Recorded ?Confirmed ?Type multivit-min no.71-iron fum 28 cap PO 10/10/24 5 History mg-folate no.1 1 mg-dha 300 mg capsule (PNV-[place]) labetalol 200 mg tablet 100 mg PO TID 10/25/2404/08 History famotidine 20 mg tablet (Pepcid) 20 mg PO BID #60 tabs 03/12/25 04/08/25 Rx fluconazole 150 mg tablet 150 mg PO Q3D 2 doses #2 tab s 04/08/25 04/08/25 Rx Last Menstrual Period: 08/14/24 Zika: Zika virus screening: Negative : No PFSH PFSH Medical History Former smoker, stopped smoking in distant past Seasonal allergies Ovarian cyst Hypertension Thyroid disease Anemia History of hemorrhoids Shortness of breath Surgical History History of appendectomy S/P wisdom tooth extraction No significant past surgical history Family History Father Myocardial infarction Grandfather Myocardial infarction Hypertension Uncle Myocardial infarction Mother Hypertension Social History adopted: No household members: significant other and children housing: house number of children: 2 current occupational status: employed current occupation: [employer] pets and animals: Yes (Avoids litterbox) pets and animals: cat(s) history of recent travel: No sexually active: Yes Smoking Status: Former smoker how long ago did patient quit smokinyears ago alcohol intake: current alcohol intake frequency: holidays/special occasions only details: not while substance use type: does not use well-balanced diet: daily or most days caffeine: No eating out: 1-3 times/week during the past year weight has: remained stable what type of physical activity do you participate in: none pelon/scientology: None seatbelt use: always do you feel safe at home: Yes additional social history: BF 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 Date Name GA/Weeks Outcome Route Bth Weight Gen Labor Lgth Anesthesia Del Locatn Provider FOB Unknown 2013- live - full term 6lbs 15o Male none [facility] Unknown live - full term 8lbs 7o Male none [facility] Unknown 2020 Miscarriage 7 spontaneous 11/08/19 surrogate live - full term [facility] Dr. Abby Carreon Delivery Date: 11/08/19 Last Updated by: Maribel Clark Surrogate HPI 34 wk ob/nst Details: MICHELINE RUSSO is a 30 year old who presents for routine OB visit. OB Visit GLENN Calculator Estimated Delivery Date Method Current WG Current Estimate 05/21/25 LMP (Certain) 33w 6d Expected Delivery Route/Plan Labor Preferences- CB/BF classes: no labor support person: Dave labor intervention preferences: [] pain management options preferred: limited cut cord/dad catch: yes : yes PP control planned: discussed discussed possible routes of delivery and associated risks: [] special requests: [] Specific Issue/Plans Covid status: [] Flu vaccine: [] Tdap vaccine: [] Rhogam: NA, baby Rh neg LARC form signed: yes Problem list reviewed and updated with the most current plan of care details and appropriate orders placed. Relevant counseling for the gestational age provided. Continue routine care and follow up unless otherwise noted in visit notes/problem list details Initial Weight: 187 lb Date -?-?-?-?-?-?-?-?-?-?-?-?- EGA Weight BP Urine Prot -?-?-?-?-?-?-?-?-?-?-?-?- Glucose FHR FuHt Pres Dilation -?-?-?-?-?-?-?-?-?-?-?-?- Effaced St Visit Note 10/11/24 -?--?-?-?-?-?-?-?-?-?-?-?- 8w 2d 187 lb (+0 oz) 143/84 -?-?-?-?-?-?-?-?-?-?-?-?- 186 -?-?-?-?-?-?-?-?-?-?-?-?- LC- CRL 1.47 con with LMP. desires nipt. thyroid normal, no longer on medications.chronic htn on labetolol. 11/06/24 -?-?-?-?-?-?-?-?-?-?-?-?- 12w 0d 189 lb (+2 lb) 141/94 Negative -?-?-?-?-?-?-?-?-?-?-?-?- Negative -?-?-?-?-?-?-?-?-?-?-?-?- JV- pt here for nursing visit. still with elevated pressures. Starting procardia and close follow up. pt states that she has been on 5 or 6 different blood pressure medications. when she goes above 100 of labetalol her pressure drops too low. if now improvement with procardia will need to consult cardiology or at least primary care for bp assistance. 11/13/24 -?-?-?-?-?-?-?-?-?-?-?-?- 13w 0d 190 lb (+3 lb) 144/91 Negative -?-?-?-?-?-?-?-?-?-?-?-?- Negative 166 -?-?-?-?-?-?-?-?-?-?-?-?- MH-No VB. Br US confirm FHT. Not taking procardia/can't swallow it. States home BPs nl when takes labetalol 100mg tid but missed dose today. Had CMP per employee health today and minimally elevated AST/ALT. Stressed importance of tid dosing and risks of uncontrolled HTN. MFM consult. RTO 1 week 12/12/24 -?-?-?-?-?-?-?-?-?-?-?-?- 17w 1d 187 lb 4 oz (+4 oz) 123/77 Negative -?-?-?-?-?-?-?-?-?-?-?-?- Negative 150 -?-?-?-?-?-?-?-?-?-?-?-?- SM- no vb lof cr amping 01/09/25 -?-?-?-?-?-?-?-?-?-?-?-?- 21w 1d 191 lb (+4 lb) 135/86 Negative -?-?-?-?-?-?-?-?-?-?-?-?- Negative 151 -?-?-?-?-?-?-?-?-?-?-?-?- JV- no complaint s today. rpt cmp and cbc today. lft's have been trending down. 02/03/25 -?-?-?-?-?-?-?-?-?-?-?-?- 24w 5d 191 lb 6 oz (+4 lb 6 oz) 126/84 Negative -?-?-?-?-?-?-?-?-?-?-?-?- Negative 160 25 -?-?-?-?-?-?-?-?-?-?-?-?- KW- no vb/lof/ct x. good fm. is having some lower BPs (90/60) at home but not symptomatic. pepcid for heart burn. glucose next visit. 02/24/25 -?-?-?-?-?-?-?-?-?-?-?-?- 27w 5d 190 lb 4 oz (+3 lb 4 oz) 124/77 Negative -?-?-?-?-?-?-?-?-?-?-?-?- Negative 154 28 -?-?-?-?-?-?-?-?-?-?-?-?- MH-No VB. Good F m 28 wk labs pending. [facility]. Discussed need for weekly NST, BPP and also growth US Q4wk at 32 wk. 03/12/25 -?-?-?-?-?-?-?-?-?-?--?-?- 30w 0d 196 lb 2 oz (+9 lb 2 oz) 138/84 Negative -?-?-?-?-?-?-?-?-?-?-?-?- Negative 145 30 -?-?-?-?-?-?-?-?-?-?-?-?- JV-no lof, vag b leeding or dec fm.needs growth us 32 and 36 weeks. still on labetalol.importance of iol discussed and she wants to try to avoid that. Will look forward to MFM explaining to her. JV-no lof, vag bleeding or d ec fm.needs growth us 32 and 36 weeks. still on labetalol.importance of iol discussed and she wants to try to avoid that. Will look forward to MFM explaining to her. needs tsh next visit 03/28/25 -?-?-?-?-?-?-?-?-?-?-?-?- 32w 2d 194 lb 2 oz (+7 lb 2 oz) 132/77 Trace -?-?-?-?-?-?-?-?-?-?-?-?- 250 g/dL 140 -?-?-?-?-?-?-?-?-?-?-?-?- KW- NST only. ur ine very concentrated and reports little to drink today. 03/31/25 -?-?-?-?-?-?-?-?-?-?-?-?- 32w 5d 195 lb 2 oz (+8 lb 2 oz) 144/91 138/94 Negative -?-?-?-?-?-?-?-?-?-?-?-?- Negative 140 -?-?-?-?-?-?-?-?-?-?-?-?- MH-NST only reac tive. States vomited labetalol this am. States more nausea in morning. Taking pepcid AM only and is controlling her heartburn. Discussed increased bile may cause nausea. Could also consider zofran 30 m in prior to taking labetalol. She will think about it. Reviewed with JV:patient will take another dose of labetalol and call in BP today. Denies headache or vision changes. 04/08/25 -?-?-?-?-?-?-?-?-?-?-?-?- 33w 6d 197 lb 8 oz (+10 lb 8 oz) 131/89 Negative -?-?-?-?-?-?-?-?-?-?-?-?- Negative 130 34 Cephalic -?-?-?-?-?-?-?-?-?-?-?-?- JV-patient has c omplaint today of vaginal irritation. She tried monistat and it burned so she discontinued it. JV-patient has complaint tod ay of vaginal irritation. She tried monistat and it burned so she discontinued it. on exam there is some white discharge. she also complains of pain on her tongue. starting diflucan 150 for 2 doses, 3 days apart. ACOG First Trimester First Trimester: Discussed Second Trimester Second Trimester: Signs and Symptoms of Labor, Selecting a care provider, Reproductive Life Planning & Contreception, Care Planning, Tobacco Cessation, Depression/Anxiety and Intimate Partner Violence Third Trimester Third Trimester: Pain Management Plans, Labor support person(s), Immediate Larc, Movement Monitoring and Infant Feeding No ; Discussed Trial of Labor after Counseling and Discussed Circumcision preference Office Procedures Non-stress Test Non-Stress Test Indications for Monitoring: Yes hypertension Heart Rate Baseline: 130 Heart Rate Variability: moderate Movement: Present Heart Rate Accelerations: Present Decelerations: Absent Contractions: Absent Impression: Yes Reactive Non-Stress Test Results POC Urinalysis 2 Dip (Clinic) Office Urine Glucose Negative Last Edit by Marible Clark on 04/08/25 10: 57 Office Urine Protein Negative Last Edit by Maribel Clark on 04/08/25 10: 57 Coding Level of Care Code OB Routine Diagnoses Anemia during in second trimester O99.012 Trimester: second trimester Elevated liver enzymes R74.8 Chronic hypertension affecting O10.919 Thyroid disease E07.9 Obesity affecting in second trimester, unspecified obesity type O99.212 Obesity type affecting : unspecified obesity Trimester: second trimester 33 weeks gestation of Z3A.33 Weeks of gestation: 33 weeks Rh negative status during in second trimester O26.892; Z67.91 Trimester: second trimester Supervision of high risk in third trimester O09.93 Trimester: third trimester Thyroid disease affecting O99.280; E07.9 Fatigue, unspecified type R53.83 Fatigue type: unspecified CPT Codes Non-Stress Test (38647) Assessment and Plan Assessment and Plan (1) Anemia in preg-unspec: Status: Acute Qualifiers: Trimester: second trimester Qualified Code(s): O99.012 - Anemia complicating , second trimester Comment: SlowFe (2) Elevated liver enzymes: Status: Acute Comment: mild. decreasing. (3) Chronic hypertension affecting : Status: Chronic Comment: increased labetalol to 200mg Tid caused near syncope. Can't swallow procardia. Labetalol 100mg tid. RTO 1 wk BP check. MFM consult. Misses doses/discussed importance. No headache/vision changes. baseline pec labs asa 81mg at 10 weeks. 32 wk:NST and BPP weekly plus Growth Q4wk mfm for anatomy;03/31: 32 w US:96% AC, 84% EFW 03/31:vomited labetalol. Will repeat dose and call BP readings:132/83 (4) Thyroid disease: Status: Acute Comment: not on any medications, was on previous during surrogacy. (5) Obesity affecting : Status: Acute Qualifiers: Obesity type affecting : unspecified obesity Trimester: second trimester Qualified Code(s): O99.212 - Obesity complicating , second trimester Comment: HgbA1c (6) : Status: Acute Qualifiers: Weeks of gestation: 33 weeks Qualified Code(s): Z3A.33 - 33 weeks gestation of Comment: NIPT low risk(NO GENDER) carrier neg. . nl anatomy. (7) Rh negative status during : Status: Acute Qualifiers: Trimester: second trimester Qualified Code(s): O26.892 - Other specified related conditions, second trimester; Z. - Unspecified blood type, Rh negative Comment: Rhogam @ 28 wks & PRN Bleeding. Baby is Rh- per Stephy results (8) Supervision of high-risk : Status: Acute Qualifiers: Trimester: third trimester Qualified Code(s): O09.93 - Supervision of high risk , unspecified, third trimester Comment: [id number](1 child was surrogate),GLENN 05/21/25, Dominic Melendez, BF Eliezer (9) Thyroid disease affecting : Status: Acute Comment: normal labs (10) Fatigue: Status: Acute Qualifiers: Fatigue type: unspecified Qualified Code(s): R53.83 - Other fatigue Orders: Orders POC Urinalysis 2 Dip (Clinic) Today OB NST Today O10.919 - Unspecified pre-existing hypertension complicating , unspecified trimester Medications: New fluconazole 150 mg PO Q3D 2 tabs 0RF 04/08/25 1124 <Electronically signed by Tiffanie Hubbard DO> Date _ Tiffanie Lepe DO Cosigner Signature: Date (if applicable) CC: ~ [facility] Work Phone: Progress note Author Joyce Bolanos [facility] Note Date/Time April 21, 2025 1:53 pm [facility] [address] [place] [address], [address] [place] [address] OFFICE VISIT Date of Service: 04/21/25 MR#: [id number] Acct: [id number] Name: MICHELINE RUSSO Rep #: [id number] : 1995 Provider: KATY Bolanos Age/Sex: 30/F [place] [facility] [place]: Signed with Addenda ADDENDUM by KATY Bolanos on 04/21/25 at 1353 Office Procedure Documentation entered by Joyce Bolanos CNM 04/21/25 13:53: Non-stress Test Non-Stress Test Indications for Monitoring: Yes hypertension Heart Rate Baseline: 135 Heart Rate Variability: moderate Movement: Present Heart Rate Accelerations: Present Decelerations: Absent Contractions: Absent Impression: Yes Reactive Non-Stress Test 04/21/25 1353 <Electronically signed by Joyce shaikh CNM> Date _ Joyce Bolanos CNM cc: ~* Signed Intake Vital Signs 02/24/25 13:05 04/14/25 11:40 04/21/25 13:19 Height 5 ft 4 in 5 ft 4 in 5 ft 4 in Weight: 198 lb BMI 34.0 BP 122/79 H Blood Pressure Location Rt brachial Position Sitting Pulse 71 Pulse Source Monitor Intake Visit Reasons: 36 wk ob/nst Poker Manager Required: No Accompanied by: Significant Other Is patient in pain?: No Feel stressed/tense/nervous/anxious/difficulty sleeping: not at all Allergies No Known Allergies Allergy (Verified 04/21/25 13:22) Medications ?Medication ?Instructions ?Recorded ?Confirmed ?Type multivit-min no.71-iron fum 28 cap PO 10/10/24 5 History mg-folate no.1 1 mg-dha 300 mg capsule (PNV-[place]) labetalol 200 mg tablet 100 mg PO TID 10/25/2404/21 History aspirin 81 mg tablet 81 mg PO QDAY 04/21/2504/21 History Last Menstrual Period: 08/14/24 Zika: Zika virus screening: Negative : No PFSH PFSH Medical History Former smoker, stopped smoking in distant past Seasonal allergies Ovarian cyst Hypertension Thyroid disease Anemia History of hemorrhoids Shortness of breath Surgical History History of appendectomy S/P wisdom tooth extraction No significant past surgical history Family History Father Myocardial infarction Grandfather Myocardial infarction Hypertension Uncle Myocardial infarction Mother Hypertension Social History adopted: No household members: significant other and children housing: house number of children: 2 current occupational status: employed current occupation: [employer] pets and animals: Yes (Avoids litterbox) pets and animals: cat(s) history of recent travel: No sexually active: Yes Smoking Status: Former smoker how long ago did patient quit smokinyears ago alcohol intake: current alcohol intake frequency: holidays/special occasions only details: not while substance use type: does not use well-balanced diet: daily or most days caffeine: No eating out: 1-3 times/week during the past year weight has: remained stable what type of physical activity do you participate in: none pelon/scientology: None seatbelt use: always do you feel safe at home: Yes additional social history: BF 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 Date Name GA/Weeks Outcome Route Bth Weight Gen Labor Lgth Anesthesia Del Locatn Provider FOB Unknown 2013-Serge 40 live - full term 6lbs 15o Male none [facility] Unknown 2016-Dominic 40 live - full term 8lbs 7o Male none [facility] Unknown 2020 Miscarriage 7 spontaneous 11/08/19 surrogate live - full term [facility] Dr. Abby Carreon Delivery Date: 11/08/19 Last Updated by: Maribel Clark Surrogate HPI 36 wk ob/nst Details: MICHELINE RUSSO is a 30 year old who presents for routine OB visit. OB Visit GLENN Calculator Estimated Delivery Date Method Current WG Current Estimate 05/21/25 LMP (Certain) 35w 5d Expected Delivery Route/Plan Labor Preferences- CB/BF classes: no labor support person: Dave labor intervention preferences: [] pain management options preferred: limited cut cord/dad catch: yes : yes PP control planned: discussed discussed possible routes of delivery and associated risks: [] special requests: [] Specific Issue/Plans Covid status: [] Flu vaccine: [] Tdap vaccine: [] Rhogam: NA, baby Rh neg LARC form signed: yes Problem list reviewed and updated with the most current plan of care details and appropriate orders placed. Relevant counseling for the gestational age provided. Continue routine care and follow up unless otherwise noted in visit notes/problem list details Initial Weight: 187 lb Date -?-?-?-?-?-?-?-?-?-?-?-?- EGA Weight BP Urine Prot -?-?-?-?-?-?-?-?-?-?-?-?- Glucose FHR FuHt Pres Dilation -?-?-?-?-?-?-?-?-?-?-?-?- Effaced St Visit Note 10/11/24 -?-?-?-?-?-?-?-?-?-?-?-?- 8w 2d 187 lb (+0 oz) 143/84 -?-?-?-?-?-?-?-?-?-?-?-?- 186 -?-?-?-?-?-?-?-?-?-?-?-?- LC- CRL 1.47 con with LMP. desires nipt. thyroid normal, no longer on medications.chronic htn on labetolol. 11/06/24 -?-?-?-?-?-?-?-?-?-?-?-?- 12w 0d 189 lb (+2 lb) 141/94 Negative -?-?-?-?-?-?-?-?-?-?-?-?- Negative -?-?-?-?-?-?-?-?-?-?-?-?- JV- pt here for nursing visit. still with elevated pressures. Starting procardia and close follow up. pt states that she has been on 5 or 6 different blood pressure medications. when she goes above 100 of labetalol her pressure drops too low. if now improvement with procardia will need to consult cardiology or at least primary care for bp assistance. 11/13/24 -?-?-?-?-?-?-?-?-?-?-?-?- 13w 0d 190 lb (+3 lb) 144/91 Negative -?-?-?-?-?-?-?-?-?-?-?-?- Negative 166 -?-?-?-?-?-?-?-?-?-?-?-?- MH-No VB. Br US confirm FHT. Not taking procardia/can't swallow it. States home BPs nl when takes labetalol 100mg tid but missed dose today. Had CMP per employee health today and minimally elevated AST/ALT. Stressed importance of tid dosing and risks of uncontrolled HTN. MFM consult. RTO 1 week 12/12/24 -?-?-?-?-?-?-?-?-?-?-?-?- 17w 1d 187 lb 4 oz (+4 oz) 123/77 Negative -?-?-?-?-?-?-?-?-?-?-?-?- Negative 150 -?-?-?-?-?-?-?-?-?-?-?-?- SM- no vb lof cr amping 01/09/25 -?-?-?-?-?-?-?-?-?-?-?-?- 21w 1d 191 lb (+4 lb) 135/86 Negative -?-?-?-?-?-?-?-?-?-?-?-?- Negative 151 -?-?-?-?-?-?-?-?-?-?-?-?- JV- no complaint s today. rpt cmp and cbc today. lft's have been trending down. 02/03/25 -?-?-?-?-?-?-?-?-?-?-?-?- 24w 5d 191 lb 6 oz (+4 lb 6 oz) 126/84 Negative -?-?-?-?-?-?-?-?-?-?-?-?- Negative 160 25 -?-?-?-?-?-?-?-?-?-?-?-?- KW- no vb/lof/ct x. good fm. is having some lower BPs (90/60) at home but not symptomatic. pepcid for heart burn. glucose next visit. 02/24/25 -?-?-?-?-?-?-?-?-?-?-?-?- 27w 5d 190 lb 4 oz (+3 lb 4 oz) 124/77 Negative -?-?--?-?-?-?-?-?-?-?-?-?- Negative 154 28 -?-?-?-?-?-?-?-?-?-?-?-?- -No VB. Good F m 28 wk labs pending. Lar. Discussed need for weekly NST, BPP and also growth US Q4wk at 32 wk. 03/12/25 -?-?-?-?-?-?-?-?-?-?-?-?- 30w 0d 196 lb 2 oz (+9 lb 2 oz) 138/84 Negative -?-?-?-?-?-?-?-?-?-?-?-?- Negative 145 30 -?-?-?-?-?-?-?-?-?-?-?-?- JV-no lof, vag b leeding or dec fm.needs growth us 32 and 36 weeks. still on labetalol.importance of iol discussed and she wants to try to avoid that. Will look forward to MFM explaining to her. JV-no lof, vag bleeding or d ec fm.needs growth us 32 and 36 weeks. still on labetalol.importance of iol discussed and she wants to try to avoid that. Will look forward to MFM explaining to her. needs tsh next visit 03/28/25 -?-?-?-?-?-?-?-?-?-?-?-?- 32w 2d 194 lb 2 oz (+7 lb 2 oz) 132/77 Trace -?-?-?-?-?-?-?-?-?-?-?-?- 250 g/dL 140 -?-?-?-?-?-?-?-?-?-?-?-?- KW- NST only. ur ine very concentrated and reports little to drink today. 03/31/25 -?-?-?-?-?-?-?-?-?-?-?-?- 32w 5d 195 lb 2 oz (+8 lb 2 oz) 144/91 138/94 Negative -?-?-?-?-?-?-?-?-?-?-?-?- Negative 140 -?-?-?-?-?-?-?-?-?-?-?-?- MH-NST only reac tive. States vomited labetalol this am. States more nausea in morning. Taking pepcid AM only and is controlling her heartburn. Discussed increased bile may cause nausea. Could also consider zofran 30 m in prior to taking labetalol. She will think about it. Reviewed with JV:patient will take another dose of labetalol and call in BP today. Denies headache or vision changes. 04/08/25 -?-?-?-?-?-?-?-?-?-?-?-?- 33w 6d 197 lb 8 oz (+10 lb 8 oz) 131/89 Negative -?-?-?-?-?-?-?-?-?-?-?-?- Negative 130 34 Cephalic -?-?-?-?-?-?-?-?-?-?-?-?- JV-patient has c omplaint today of vaginal irritation. She tried monistat and it burned so she discontinued it. JV-patient has complaint tod ay of vaginal irritation. She tried monistat and it burned so she discontinued it. on exam there is some white discharge. she also complains of pain on her tongue. starting diflucan 150 for 2 doses, 3 days apart. 04/14/25 -?-?-?-?-?-?-?-?-?-?-?-?- 34w 5d 198 lb 4 oz (+11 lb 4 oz) 132/87 Negative -?-?-?-?-?-?-?-?-?-?-?-?- Negative 140 Cephalic -?-?-?-?-?-?-?-?-?-?-?-?- SM- no vb lof go od fm no regular ctx reviewed IOL plan 04/21/25 -?-?-?-?-?-?-?-?-?-?-?-?- 35w 5d 198 lb (+11 lb) 122/79 Negative -?-?-?-?-?-?-?-?-?-?-?-?- Negative 135 -?-?-?-?-?-?-?-?-?--?-?-?- KW- no vb/lof/ct x. good fm. NST reactive but did have one decel. to for BPP. discussed 38 IOL with SM last visit per patient. ACOG First Trimester First Trimester: Discussed Second Trimester Second Trimester: Signs and Symptoms of Labor, Selecting a care provider, Reproductive Life Planning & Contreception, Care Planning, Tobacco Cessation, Depression/Anxiety and Intimate Partner Violence Third Trimester Third Trimester: Pain Management Plans, Labor support person(s), Immediate Larc, Movement Monitoring and Feeding No ; Discussed Trial of Labor after Counseling and Discussed Circumcision preference ROS Const Reports system reviewed and no additional complaints, except as documented Eyes Reports system reviewed and no additional complaints, except as documented ENT Reports system reviewed and no additional complaints, except as documented Card Reports system reviewed and no additional complaints, except as documented Resp Reports system reviewed and no additional complaints, except as documented GI Reports system reviewed and no additional complaints, except as documented, Denies nausea and Denies vomiting Reports system reviewed and no additional complaints, except as documented Musc Reports system reviewed and no additional complaints, except as documented Skin/Breast Reports system reviewed and no additional complaints, except as documented Neuro Yes system reviewed and no additional complaints, except as documented Psych Reports system reviewed and no additional complaints, except as documented Endo Reports system reviewed and no additional complaints, except as documented Malik/Lymph Reports system reviewed and no additional complaints, except as documented Aller/Immun Reports system reviewed and no additional complaints, except as documented Exam Const General: cooperative, healthy appearing and no acute distress Orientation: alert, awake and oriented x3 Neck Neck: normal visual inspection and full ROM Resp Effort & Inspection: normal respiratory effort, able to speak in complete sentences and symmetric chest movement GI Inspection: normal to inspection Palpation: soft and other Other: gravid Skin General: no rashes or lesions noted Neuro General: patient alert, patient awake and patient oriented x3 Cognition: normal cognition Speech: speech normal Gait: normal gait Motor: muscle tone normal throughout Extrem General: normal to inspection and full ROM Psych Appearance: grossly normal Mental Status: mental status grossly normal Mood: congruent mood Affect: normal affect Speech and Movement: speech and movement normal Attitude: cooperative Thought Process: normal Thought Content: normal Judgment: judgment good Results POC Urinalysis 2 Dip (Clinic) Office Urine Glucose Negative Last Edit by Micheline Giles on 04/21/25 13 :32 Office Urine Protein Negative Last Edit by Micheline Giles on 04/21/25 13 :32 Coding Level of Care Code OB Routine Diagnoses Anemia during in second trimester O99.012 Trimester: second trimester Elevated liver enzymes R74.8 Chronic hypertension affecting O10.919 Thyroid disease E07.9 Obesity affecting in second trimester, unspecified obesity type O99.212 Obesity type affecting : unspecified obesity Trimester: second trimester 35 weeks gestation of Z3A.35 Weeks of gestation: 35 weeks Rh negative status during in second trimester O26.892; Z67.91 Trimester: second trimester Supervision of high risk in third trimester O09.93 Trimester: third trimester Thyroid disease affecting O99.280; E07.9 Fatigue, unspecified type R53.83 Fatigue type: unspecified Assessment and Plan Assessment and Plan (1) Anemia in preg-unspec: Status: Acute Qualifiers: Trimester: second trimester Qualified Code(s): O99.012 - Anemia complicating , second trimester Comment: SlowFe (2) Elevated liver enzymes: Status: Acute Comment: mild. decreasing. (3) Chronic hypertension affecting : Status: Chronic Comment: increased labetalol to 200mg Tid caused near syncope. Can't swallow procardia. Labetalol 100mg tid. RTO 1 wk BP check. MFM consult. Misses doses/discussed importance. No headache/vision changes. baseline pec labs asa 81mg at 10 weeks. 32 wk:NST and BPP weekly plus Growth Q4wk mfm for anatomy;03/31: 32 w US:96% AC, 84% EFW 03/31:vomited labetalol. Will repeat dose and call BP readings:132/83 (4) Thyroid disease: Status: Acute Comment: not on any medications, was on previous during surrogacy. (5) Obesity affecting : Status: Acute Qualifiers: Obesity type affecting : unspecified obesity Trimester: second trimester Qualified Code(s): O99.212 - Obesity complicating , second trimester Comment: HgbA1c (6) : Status: Acute Qualifiers: Weeks of gestation: 35 weeks Qualified Code(s): Z3A.35 - 35 weeks gestation of Comment: NIPT low risk(NO GENDER) carrier neg. . nl anatomy. (7) Rh negative status during : Status: Acute Qualifiers: Trimester: second trimester Qualified Code(s): O26.892 - Other specified related conditions, second trimester; Z67.91 - Unspecified blood type, Rh negative Comment: Rhogam @ 28 wks & PRN Bleeding. Baby is Rh- per Stephy results (8) Supervision of high-risk : Status: Acute Qualifiers: Trimester: third trimester Qualified Code(s): O09.93 - Supervision of high risk , unspecified, third trimester Comment: [id number](1 child was surrogate),GLENN 05/21/25, Dominic Melendez, ANTIONE Martins (9) Thyroid disease affecting : Status: Acute Comment: normal labs (10) Fatigue: Status: Acute Qualifiers: Fatigue type: unspecified Qualified Code(s): R53.83 - Other fatigue Orders: Orders POC Urinalysis 2 Dip (Clinic) Today OB NST Today Z3A.35 - 35 weeks gestation of Plan Details Additional Comments: ACOG trimester education reviewed and updated. see problem list details for updated plan management information and see below for orders placed at this visit. GA appropriate handout given. 04/21/25 3941 <Electronically signed by Joyce shaikh CNM> Date _ Joyce Bolanos CNM Cosigner Signature: Date (if applicable) CC: ~ [facility] [employer] Work Phone: Progress note Author Joyce Bolanos [facility] Note Date/Time April 21, 2025 4:07 pm [facility] Medical Records Department [address] [place] [address] OB Triage Progress Note 04/21/25 1605 MR#: [id number] Acct: [id number] Name: MICHELINE RUSSO Rep #:[id number] : 1995 30 From: Joyce Bolanos CNM PCP: Rachel Bryant OR NURSE MANAGER-C Status:REG C LI Y DOS: Location: [place] [address] Progress Notes Date of Service: 04/21/25 Progress Note: Patient presents for triage evaluation secondary to variable in office on NST at35.5 weeks FHT: 130 Moderate variability reactive no decelerations category I tracing [place]: no Contractions Assessment and plan: BPP 03/30 with Reactive NST on unit for total of 06/01, reassuring maternal and status patient discharged to home to follow-up in office. See problem list details for additional plan information. Charges/Coding Multi Select Codes Urinary/Genital Urinary/Genital CPT Codes: 14511-23 non-stress test Interp Assessment & Plan (1) Anemia in preg-unspec: QUALIFIERS: Trimester: second trimester Qualified Code(s): O99.012 - Anemia complicating , second trimester COMMENT: SlowFe (2) Antepartum variable deceleration: COMMENT: BPP 03/30 and reassuring NST for 06/01. d/c home (3) Elevated liver enzymes: COMMENT: mild. decreasing. (4) Chronic hypertension affecting : COMMENT: increased labetalol to 200mg Tid caused near syncope. Can't swallow procardia. Labetalol 100mg tid. RTO 1 wk BP check. MFM consult. Misses doses/discussed importance. No headache/vision changes. baseline pec labs asa 81mg at 10 weeks. 32 wk:NST and BPP weekly plus Growth Q4wk mfm for anatomy;03/31: 32 w US:96% AC, 84% EFW 03/31:vomited labetalol. Will repeat dose and call BP readings:132/83 (5) Thyroid disease: COMMENT: not on any medications, was on previous during surrogacy. (6) Obesity affecting : QUALIFIERS: Trimester: second trimester Obesity type affecting : unspecified obesity Qualified Code(s): O99.212 - Obesity complicating , second trimester COMMENT: HgbA1c (7) : QUALIFIERS: Weeks of gestation: 35 weeks Qualified Code(s): Z3A.35 - 35 weeks gestation of COMMENT: NIPT low risk(NO GENDER) carrier neg. . nl anatomy. (8) Rh negative status during : QUALIFIERS: Trimester: second trimester Qualified Code(s): O26.892 - Other specified related conditions, second trimester; Z67.91- Unspecified blood type, Rh negative COMMENT: Rhogam @ 28 wks & PRN Bleeding. Baby is Rh- per Stephy results (9) Supervision of high-risk : QUALIFIERS: Trimester: third trimester Qualified Code(s): O09.93 - Supervision of high risk , unspecified, third trimester COMMENT: [id number](1 child was surrogate),GLENN 05/21/25, Dominic Melendez, BF Eliezer (10) Thyroid disease affecting : COMMENT: normal labs (11) Fatigue: QUALIFIERS: Fatigue type: unspecified Qualified Code(s): R53.83 -Other fatigue 04/21/25 1607 <Electronically signed by Joyce shaikh CNM> Date _ Joyce Bolanos CNM Cosigner Signature (if applicable): Date CC: KATY Bolanos; DAI Bryant ~ Signed [facility] Work Phone: Progress note Author Joyce Bolanos [facility] Note Date/Time April 28, 2025 1:46p [facility] [address] [place] [address], [address] [place] [address] OFFICE VISIT Date of Service: 04/28/25 MR#: [id number] Acct: [id number] Name: MICHELINE RUSSO Rep #: [id number] : 1995 Provider: KATY Bolanos Age/Sex: 30/F [place] [facility] [place] Status: Signed Intake Vital Signs 02/24/25 13:05 04/21/25 14:15 04/28/25 13:08 Height 5 ft 4 in 5 ft 3 in 5 ft 3 in Weight: 198 lb 2 oz BMI 35.1 BP 136/90 H Intake Visit Reasons: 37 ob/nst Chief Complaint: 37wk ob/nst Poker Manager Required: No Is patient in pain?: No Allergies No Known Allergies Allergy (Verified 04/28/25 13:10) Medications ?Medication ?Instructions ?Recorded ?Confirmed ?Type multivit-min no.71-iron fum 28 1 cap PO DAILY 10/10/24 04/28/25 History mg-folate no.1 1 mg-dha 300 mg capsule (PNV-[place]) labetalol 200 mg tablet 100 mg PO TID 10/25/2404/28 History aspirin 81 mg tablet 81 mg PO QDAY 04/21/2504/28 History Last Menstrual Period: 08/14/24 : No PFSH PFSH Medical History Former smoker, stopped smoking in distant past Seasonal allergies Ovarian cyst Hypertension Thyroid disease Anemia History of hemorrhoids Shortness of breath Surgical History History of appendectomy S/P wisdom tooth extraction No significant past surgical history Family History Father Myocardial infarction Grandfather Myocardial infarction Hypertension Uncle Myocardial infarction Mother Hypertension Social History adopted: No household members: significant other and children housing: house number of children: 2 current occupational status: employed current occupation: [employer] pets and animals: Yes (Avoids litterbox) pets and animals: cat(s) history of recent travel: No sexually active: Yes Smoking Status: Former smoker how long ago did patient quit smokinyears ago alcohol intake: current alcohol intake frequency: holidays/special occasions only details: not while substance use type: does not use well-balanced diet: daily or most days caffeine: No eating out: 1-3 times/week during the past year weight has: remained stable what type of physical activity do you participate in: none pelon/scientology: None seatbelt use: always do you feel safe at home: Yes additional social history: BF Eliezer- 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 Date Name GA/Weeks Outcome Route Bth Weight Infant Gen Labor Lgth Anes thes ia Del Locatn Provider FOB Unknown 2013-Serge 40 live - full term 6lbs 15o Male none [facility] Unknown 2016-Dominic 40 live - full term 8lbs 7o Male none [facility] Unknown 2020 Miscarriage 7 spontaneous 11/08/19 surrogate live - full term [facility] Dr. Abby Carreon Delivery Date: 11/08/19 Last Updated by: Maribel Clark Surrogate HPI 37 ob/nst Details: MICHELINE RUSSO is a 30 year old who presents for routine OB visit. OB Visit GLENN Calculator Estimated Delivery Date Method Current WG Current Estimate 05/21/25 LMP (Certain) 36w 5d Expected Delivery Route/Plan Labor Preferences- CB/BF classes: no labor support person: Dave labor intervention preferences: [] pain management options preferred: limited cut cord/dad catch: yes : yes PP control planned: discussed discussed possible routes of delivery and associated risks: [] special requests: [] Specific Issue/Plans Covid status: [] Flu vaccine: [] Tdap vaccine: [] Rhogam: NA, baby Rh neg LARC form signed: yes Problem list reviewed and updated with the most current plan of care details and appropriate orders placed. Relevant counseling for the gestational age provided. Continue routine care and follow up unless otherwise noted in visit notes/problem list details Initial Weight: 187 lb Date -?-?-?-?-?-?-?-?-?-?-?-?- EGA Weight BP Urine Prot -?-?-?-?-?-?-?-?-?-?-?-?- Glucose FHR FuHt Pres Dilation -?-?-?-?-?-?-?-?-?-?-?-?- Effaced St Visit Note 10/11/24 -?-?-?-?-?-?-?-?-?-?-?-?- 8w 2d 187 lb (+0 oz) 143/84 -?-?-?-?-?-?-?-?-?-?-?-?- 186 -?-?-?-?-?-?-?-?-?-?-?-?- LC- CRL 1.47 con with LMP. desires nipt. thyroid normal, no longer on medications.chronic htn on labetolol. 11/06/24 -?-?-?-?--?-?-?-?-?-?-?-?- 12w 0d 189 lb (+2 lb) 141/94 Negative -?-?-?-?-?-?-?-?-?-?-?-?- Negative -?-?-?-?-?-?-?-?-?-?-?-?- JV- pt here for nursing visit. still with elevated pressures. Starting procardia and close follow up. pt states that she has been on 5 or 6 different blood pressure medications. when she goes above 100 of labetalol her pressure drops too low. if now improvement with procardia will need to consult cardiology or at least primary care for bp assistance. 11/13/24 -?-?-?-?-?-?-?-?-?-?-?-?- 13w 0d 190 lb (+3 lb) 144/91 Negative -?-?-?-?-?-?-?-?-?-?-?-?- Negative 166 -?-?-?-?-?-?-?-?-?-?-?-?- MH-No VB. Br US confirm FHT. Not taking procardia/can't swallow it. States home BPs nl when takes labetalol 100mg tid but missed dose today. Had CMP per employee health today and minimally elevated AST/ALT. Stressed importance of tid dosing and risks of uncontrolled HTN. MFM consult. RTO 1 week 12/12/24 -?-?-?-?-?-?-?-?-?-?-?-?- 17w 1d 187 lb 4 oz (+4 oz) 123/77 Negative -?-?-?-?-?-?-?-?-?-?-?-?- Negative 150 -?-?-?-?-?-?-?-?-?-?-?-?- SM- no vb lof cr amping 01/09/25 -?-?-?-?-?-?-?-?-?-?-?--?- 21w 1d 191 lb (+4 lb) 135/86 Negative -?-?-?-?-?-?-?-?-?-?-?-?- Negative 151 -?-?-?-?-?-?-?-?-?-?-?-?- JV- no complaint s today. rpt cmp and cbc today. lft's have been trending down. 02/03/25 -?-?-?-?-?-?-?-?-?-?-?-?- 24w 5d 191 lb 6 oz (+4 lb 6 oz) 126/84 Negative -?-?-?-?-?-?-?-?-?-?-?-?- Negative 160 25 -?-?-?-?-?-?-?-?-?-?-?-?- KW- no vb/lof/ct x. good fm. is having some lower BPs (90/60) at home but not symptomatic. pepcid for heart burn. glucose next visit. 02/24/25 -?-?-?-?-?-?-?-?-?-?-?-?- 27w 5d 190 lb 4 oz (+3 lb 4 oz) 124/77 Negative -?-?-?-?-?-?-?-?-?-?-?-?- Negative 154 28 -?-?-?-?-?-?-?-?-?-?-?-?- MH-No VB. Good F m 28 wk labs pending. Larc. Discussed need for weekly NST, BPP and also growth US Q4wk at 32 wk. 03/12/25 -?-?-?-?-?-?-?-?-?-?-?-?- 30w 0d 196 lb 2 oz (+9 lb 2 oz) 138/84 Negative -?-?-?-?-?-?-?-?-?-?-?-?- Negative 145 30 -?-?-?-?-?-?-?-?-?-?-?-?- JV-no lof, vag b leeding or dec fm.needs growth us 32 and 36 weeks. still on labetalol.importance of iol discussed and she wants to try to avoid that. Will look forward to MFM explaining to her. JV-no lof, vag bleeding or d ec fm.needs growth us 32 and 36 weeks. still on labetalol.importance of iol discussed and she wants to try to avoid that. Will look forward to MFM explaining to her. needs tsh next visit 03/28/25 -?-?-?-?-?-?-?-?-?-?-?-?- 32w 2d 194 lb 2 oz (+7 lb 2 oz) 132/77 Trace -?-?-?-?-?-?-?-?-?-?-?-?- 250 g/dL 140 -?-?-?-?-?-?-?-?-?-?-?-?- KW- NST only. ur ine very concentrated and reports little to drink today. 03/31/25 -?-?-?-?-?-?-?-?-?-?-?-?- 32w 5d 195 lb 2 oz (+8 lb 2 oz) 144/91 138/94 Negative -?-?-?-?-?-?-?-?-?-?-?-?- Negative 140 -?-?-?-?-?-?-?-?-?-?-?-?- MH-NST only reac tive. States vomited labetalol this am. States more nausea in morning. Taking pepcid AM only and is controlling her heartburn. Discussed increased bile may cause nausea. Could also consider zofran 30 m in prior to taking labetalol. She will think about it. Reviewed with BENITA:patient will take another dose of labetalol and call in BP today. Denies headache or vision changes. 04/08/25 -?-?-?-?-?-?-?-?-?-?-?-?- 33w 6d 197 lb 8 oz (+10 lb 8 oz) 131/89 Negative -?-?-?-?-?-?-?-?-?-?-?-?- Negative 130 34 Cephalic -?-?-?-?-?-?-?-?-?-?-?-?- JV-patient has c omplaint today of vaginal irritation. She tried monistat and it burned so she discontinued it. JV-patient has complaint tod ay of vaginal irritation. She tried monistat and it burned so she discontinued it. on exam there is some white discharge. she also complains of pain on her tongue. starting diflucan 150 for 2 doses, 3 days apart. 04/14/25 -?-?-?-?-?-?-?-?-?-?-?-?- 34w 5d 198 lb 4 oz (+11 lb 4 oz) 132/87 Negative -?-?-?-?-?-?-?-?-?-?-?-?- Negative 140 Cephalic -?-?-?-?-?-?-?-?-?-?-?-?- SM- no vb lof go od fm no regular ctx reviewed IOL plan 04/21/25 -?-?-?-?-?-?-?-?-?-?-?-?- 35w 5d 198 lb (+11 lb) 122/79 Negative -?-?-?-?-?-?-?-?-?-?-?-?- Negative 135 -?-?-?-?-?-?-?-?-?-?-?-?- KW- no vb/lof/ct x. good fm. NST reactive but did have one decel. to wp for BPP. discussed 38 IOL with SM last visit per patient. 04/28/25 -?-?-?--?-?-?-?-?-?-?-?-?- 36w 5d 198 lb 2 oz (+11 lb 2 oz) 136/90 Negative -?-?-?-?-?-?-?-?-?-?-?-?- Negative 130 37 Cephalic 0 -?--?-?-?-?-?-?-?-?-?-?-?- KW- no vb/lof/ct x. good fm. NST reactive. GBS today. KW- no vb/lof/ctx. good fm. NST reactive. GBS today. growth US tomorrow ACOG First Trimester First Trimester: Discussed Second Trimester Second Trimester: Signs and Symptoms of Labor, Selecting a care provider, Reproductive Life Planning & Contreception, Care Planning, Tobacco Cessation, Depression/Anxiety and Intimate Partner Violence Third Trimester Third Trimester: Pain Management Plans, Labor support person(s), Immediate Larc, Movement Monitoring and Feeding No ; Discussed Trial of Labor after Counseling and Discussed Circumcision preference Office Procedures Non-stress Test Non-Stress Test Indications for Monitoring: Yes hypertension Heart Rate Baseline: 130 Heart Rate Variability: moderate Movement: Present Heart Rate Accelerations: Present Decelerations: Absent Contractions: Absent Impression: Yes Reactive Non-Stress Test Results POC Urinalysis 2 Dip (Clinic) Office Urine Glucose Negative Last Edit by Tamera Alvarez on 04/28/25 13:18 Office Urine Protein Negative Last Edit by Tamera Alvarez on 04/28/25 13:18 Coding Level of Care Code OB Routine Diagnoses Antepartum variable deceleration O36.8390 Anemia during in second trimester O99.012 Trimester: second trimester Elevated liver enzymes R74.8 Chronic hypertension affecting O10.919 Thyroid disease E07.9 Obesity affecting in second trimester, unspecified obesity type O99.212 Obesity type affecting : unspecified obesity Trimester: second trimester 36 weeks gestation of Z3A.36 Weeks of gestation: 36 weeks Rh negative status during in second trimester O26.892; Z67.91 Trimester: second trimester Supervision of high risk in third trimester O09.93 Trimester: third trimester Thyroid disease affecting O99.280; E07.9 Fatigue, unspecified type R53.83 Fatigue type: unspecified CPT Codes Non-Stress Test (01471) Assessment and Plan Assessment and Plan (1) Antepartum variable deceleration: Status: Acute Comment: BPP 6/8 and reassuring NST for 06/01. d/c home (2) Anemia in preg-unspec: Status: Acute Qualifiers: Trimester: second trimester Qualified Code(s): O99.012 - Anemia complicating , second trimester Comment: SlowFe (3) Elevated liver enzymes: Status: Acute Comment: mild. decreasing. (4) Chronic hypertension affecting : Status: Chronic Comment: increased labetalol to 200mg Tid caused near syncope. Can't swallow procardia. Labetalol 100mg tid. RTO 1 wk BP check. MFM consult. Misses doses/discussed importance. No headache/vision changes. baseline pec labs asa 81mg at 10 weeks. 32 wk:NST and BPP weekly plus Growth Q4wk mfm for anatomy;03/31: 32 w US:96% AC, 84% EFW 03/31:vomited labetalol. Will repeat dose and call BP readings:132/83 (5) Thyroid disease: Status: Acute Comment: not on any medications, was on previous during surrogacy. (6) Obesity affecting : Status: Acute Qualifiers: Obesity type affecting : unspecified obesity Trimester: second trimester Qualified Code(s): O99.212 - Obesity complicating , second trimester Comment: HgbA1c (7) : Status: Acute Qualifiers: Weeks of gestation: 36 weeks Qualified Code(s): Z3A.36 - 36 weeks gestation of Comment: NIPT low risk(NO GENDER) carrier neg. . nl anatomy. (8) Rh negative status during : Status: Acute Qualifiers: Trimester: second trimester Qualified Code(s): O26.892 - Other specified related conditions, second trimester; Z67.91 - Unspecified blood type, Rh negative Comment: Rhogam @ 28 wks & PRN Bleeding. Baby is Rh- per Stephy results (9) Supervision of high-risk : Status: Acute Qualifiers: Trimester: third trimester Qualified Code(s): O09.93 - Supervision of high risk , unspecified, third trimester Comment: [id number](1 child was surrogate),GLENN 05/21/25, Dominic Melendez, ANTIONE Martins (10) Thyroid disease affecting : Status: Acute Comment: normal labs (11) Fatigue: Status: Acute Qualifiers: Fatigue type: unspecified Qualified Code(s): R53.83 - Other fatigue Orders: Orders POC Urinalysis 2 Dip (Clinic) Today OB NST Today O09.93 - Supervision of high risk , unspecified, third trimester, O10.919 - Unspecified pre-existing hypertension complicating , unspecified trimester, O99.212 - Obesity complicating , second trimester Culture, Group B Streptococcus Today O09.93 - Supervision of high risk , unspecified, third trimester, Z3A.36 - 36 weeks gestation of 04/28/25 1346 <Electronically signed by Joyce shaikh CNM> Date _ Joyce Bolanos CNM Cosigner Signature: Date (if applicable) CC: ~ [facility] Work Phone: Progress note Author Joyce Bolanos [facility] Note Date/Time June 19, 2025 10 :32am [facility] [address], [place] [address] OFFICE VISIT Date of Service: 06/19/25 MR#: [id number] Acct: [id number] Name: MICHELINE RUSSO Rep #: [id number] : 1995 Provider: KATY Bolanos Age/Sex: 30/F [place] [facility] [place]: Signed Intake Vital Signs 05/09/25 08:41 05/20/25 13:50 06/19/25 10:16 Height 5 ft 3 in 5 ft 3 in 5 ft 3 in Weight: 175 lb 2 oz 177 lb 7 oz BMI 31.0 31.4 BP 129/88 H 116/82 H Intake Visit Reasons: visit (obstetrics) Chief Complaint: Visit Poker Manager Required: No Is patient in pain?: No Allergies No Known Allergies Allergy (Verified 06/19/25 10:20) Medications ?Medication ?Instructions ?Recorded ?Confirmed ?Type multivit-min no.71-iron fum 28 1 cap PO DAILY vitamin 10/10/24 06/19/25 History mg-folate no.1 1 mg-dha 300 mg capsule (PNV-[place]) aspirin 81 mg tablet 81 mg PO QDAY blood pressure 04/21/25 06/19/25 History labetalol 200 mg tablet 100 mg PO BID elevated BP 06/19/25 History cholecalciferol (vitamin D3) 50 50 mcg PO QDAY 5 06/19/25 History mcg (2,000 unit) chewable tablet : Yes PFSH Medical History Former smoker, stopped smoking in distant past Seasonal allergies Ovarian cyst Hypertension Thyroid disease Anemia History of hemorrhoids Shortness of breath Surgical History History of appendectomy S/P wisdom tooth extraction No significant past surgical history Family History Father Myocardial infarction Grandfather Myocardial infarction Hypertension Uncle Myocardial infarction Mother Hypertension Social History adopted: No household members: significant other and children housing: house number of children: 2 current occupational status: employed current occupation: [employer] pets and animals: Yes (Avoids litterbox) pets and animals: cat(s) history of recent travel: No sexually active: Yes Smoking Status: Former smoker how long ago did patient quit smokinyears ago alcohol intake: current alcohol intake frequency: holidays/special occasions only details: not while substance use type: does not use well-balanced diet: daily or most days caffeine: No eating out: 1-3 times/week during the past year weight has: remained stable what type of physical activity do you participate in: none pelon/scientology: None seatbelt use: always do you feel safe at home: Yes additional social history: BF Eliezer- Tourism Radio Presenter working at [employer] History 5 Elective abortions Hx Para 4 Spontaneous abortions 1 Hx # Term Pregnancies 4 Ectopic pregnancies Hx # Pregnancies Multiple births # of living children 4 Past Pregnancies Del. Date Name GA/Weeks Outcome Route Bth Weight Gen Labor Lgth Anesthesia Del Locatn Provider FOB Unknown 2013-Serge 40 live - full term 6lbs 15o Male none [facility] Unknown 2016-Dominic 40 live - full term 8lbs 7o Male none [facility] Unknown 2020 Miscarriage 7 spontaneous 11/08/19 surrogate live - full term [facility] Dr. Abby Carreon 05/09/25 Eunice 38 live - full term 7lb 14oz Female n one [facility] Abby Carreon Eliezer Delivery Date: 11/08/19 Last Updated by: Maribel Clark Surrogate Delivery Date: 05/09/25 Last Updated by: Melissa Teran see problem list for complications, and IOL,chtn 38 SM girl Eunice Depression Screen PHQ-2/9 PHQ-2 Over the last 2 weeks, how often have you been bothered by any of the following problems? 1. Little interest or pleasure in doing things: not at all 2. Feeling down, depressed, or hopeless: not at all Total score: 0 Post HPI Routine Follow-Up: Details: MICHELINE RUSSO is a 30 year old who presents for her post visit. Doing well. Feeding: Breast Menses resumed: No Roberta since delivery: Yes Emotional Support: Yes Last Pap:: 04/10/24 Control Method: IUD-liletta ROS Const All systems reviewed & are unremarkable except as noted in H Reports system reviewed and no additional complaints, except as documented Card Reports system reviewed and no additional complaints, except as documented GI Reports system reviewed and no additional complaints, except as documented Neuro Yes system reviewed and no additional complaints, except as documented Psych Reports system reviewed and no additional complaints, except as documented, Denies anhedonia, Denies depression, Denies homicidal ideation and Denies suicidal ideation Exam Const General: cooperative, healthy appearing and comfortable Nutritional Appearance: average body habitus Orientation: alert, awake and oriented x3 Neck Neck: normal visual inspection and full ROM Resp Effort & Inspection: normal respiratory effort, able to speak in complete sentences and symmetric chest movement GI Inspection: normal to inspection Palpation: soft External Female Exam: normal external appearance and normal appearance of the urethra Urethra: normal appearance of the urethra Speculum Exam - Vagina: normal appearance of the vagina and normal vaginal discharge Bimanual Exam- Vagina & Uterus: normal bimanual exam, normal palpation and uterine size normal Bimanual Exam- Adnexa, other: normal adnexae and normal Pelvic Support: normal Neuro General: patient alert, patient awake, patient oriented x3 and moves all extremities Psych Appearance: grossly normal and well kempt Mental Status: mental status grossly normal Affect: normal affect Speech and Movement: speech and movement normal Attitude: cooperative Thought Process: normal Thought Content: normal Judgment: judgment good Coding Level of Care Code No Charge Diagnoses Routine Follow-Up Z39.2 Assessment and Plan Assessment and Plan (1) Routine Follow-Up: Plan Details Additional Comments: Cervical cancer screenin Contraceptive plans: IUD Liletta Complications: chtn Follow up for annual exams or sooner if indicated. 06/19/25 1032 <Electronically signed by Joyce shaikh CNM> Date _ Joyce Bolanos CNM Cosigner Signature: Date (if applicable) CC: ~ [facility] Work Phone: Progress note Author Joyce Bolanos [facility] Note Date/Time July 17, 2025 9:19am [facility] [address], [address] [place] [address] OFFICE VISIT Date of Service: 07/17/25 MR#: [id number] Acct: [id number] Name: MICHELINE RUSSO Rep #: [id number] : 1995 Provider: KTAY Bolanos Age/Sex: 30/F [place] [facility] [place] Status: Signed Intake Vital Signs 06/19/25 10:16 07/17/25 08:56 07/17/25 08:58 Height 5 ft 3 in 5 ft 3 in 5 ft 3 in Weight: 177 lb 7 oz 181 lb BMI 31.4 32.1 BP 116/82 H 145/95 H Intake Visit Reasons: Liletta Insertion Poker Manager Required: No Is patient in pain?: No Allergies No Known Allergies Allergy (Verified 07/17/25 09:03) Is last menstrual period known: Yes Last Menstrual Period: 07/17/25 Post menopausal: No Patient : No PFSH PFS Medical History (Updated 06/26/25 @ 10:37 by Shalonda Duran) Contraceptive management Former smoker, stopped smoking in distant past Seasonal allergies Ovarian cyst Hypertension Thyroid disease Anemia History of hemorrhoids Shortness of breath Surgical History History of appendectomy S/P wisdom tooth extraction No significant past surgical history Family History Father Myocardial infarction Grandfather Myocardial infarction Hypertension Uncle Myocardial infarction Mother Hypertension Social History adopted: No household members: significant other and children housing: house number of children: 2 current occupational status: employed current occupation: [employer] pets and animals: Yes (Avoids litterbox) pets and animals: cat(s) history of recent travel: No sexually active: Yes Smoking Status: Former smoker how long ago did patient quit smokinyears ago alcohol intake: current alcohol intake frequency: holidays/special occasions only details: not while substance use type: does not use well-balanced diet: daily or most days caffeine: No eating out: 1-3 times/week during the past year weight has: remained stable what type of physical activity do you participate in: none pelon/scientology: None seatbelt use: always do you feel safe at home: Yes additional social history: ANTIONE Santamaria working at [employer] History 5 Elective abortions Hx Para 4 Spontaneous abortions 1 Hx # Term Pregnancies 4 Ectopic pregnancies Hx # Pregnancies Multiple births # of living children 4 Past Pregnancies Del. Date Name GA/Weeks Outcome Route Bth Weight Infant Gen Labor Lgth Anesthesia Del Locatn Provider FOB Unknown 40 live - full term 6lbs 15o Male none [facility] Unknown 40 live - full term 8lbs 7o Male none [facility] Unknown 2021 Miscarriage 7 spontaneous 11/08/19 surrogate live - full term [facility] Dr. Abby Carreon 05/09/25 Eunice 38 live - full term 7lb 14oz Female n one [facility] Abby Carreon Eliezer Delivery Date: 11/08/19 Last Updated by: Maribel Clark Surrogate Delivery Date: 05/09/25 Last Updated by: Melissa Teran see problem list for complications, and IOL,chtn 38 SM girl Eunice HPI Liletta Insertion Details: MICHELINE RUSSO is a 30 year old who presents for IUD insertion. discussed risks and benefits agrees with procedure Female Reproductive History Last Menstrual Period: 07/17/25 Questions: sexually active: Yes ROS Const Constitutional: Reports system reviewed and no additional complaints, except as documented Cardio Card: Reports system reviewed and no additional complaints, except as documented Resp Resp: Reports system reviewed and no additional complaints, except as documented GI GI: Reports system reviewed and no additional complaints, except as documented : Reports system reviewed and no additional complaints, except as documented; Denies difficulty voiding, dysuria or urinary frequency Skin Skin/Breast: Reports system reviewed and no additional complaints, except as documented Neuro Neuro: Reports system reviewed and no additional complaints, except as documented Psych Psych: Reports system reviewed and no additional complaints, except as documented Exam Const General: cooperative, healthy appearing, comfortable and no acute distress Resp Effort & Inspection: normal respiratory effort, able to speak in complete sentences and symmetric chest movement GI Inspection: normal to inspection Palpation: soft External Female Exam: normal external appearance and normal appearance of the urethra Urethra: normal appearance of the urethra Speculum Exam - Vagina: normal appearance of the vagina and normal vaginal discharge Speculum Exam - Cervix: normal appearance of the cervix and nontender Bimanual Exam- Vagina & Uterus: normal bimanual exam, normal palpation, uterine size normal, No tender and non-tender Bimanual Exam- Adnexa, other: normal Pelvic Support: normal Neuro General: patient alert, patient awake and patient oriented x3 Cognition: normal cognition Speech: speech normal Gait: normal gait Psych Appearance: grossly normal and well kempt Mental Status: mental status grossly normal Affect: normal affect Speech and Movement: speech and movement normal Attitude: cooperative Thought Process: normal Thought Content: normal Judgment: judgment good Office Procedures IUD Insertion IUD GC/Chlamydia:: not done Test: Yes Negative Consent Signed: Yes Time out checklist: patient, procedure, site marked/identified, positioning of patient, supplies available, allergies confirmed and team agrees on procedure IUD: Yes Liletta IUD inserted Time out time: 09:10 Details: Sign in Communication: Completed Sign out documentation: Completed The uterus sounded to 8 cm. After prepping the cervix with betadine and using sterile technique, the cervix was grasped with a single tooth tenaculum and the IUD was inserted without difficulty and the string was cut to 3cm from the external os of the cervix. All instruments were removed from the vagina and excellent hemostasis was noted. Procedure Summary: patient tolerated the procedure well without complication. 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 Total Dispensed Waste 1 device 0 % Results POC Urine Office , Urine Negative Last Edit by Clare Anderson RN on 07/17/25 09 :04 Coding Level of Care Code Attention Mike Diagnoses Contraceptive management Z30.9 Assessment and Plan Assessment and Plan (1) Contraceptive management: Status: Acute Comment: No PA needed for IUD. Ref.#[id number] 06/26/25 Plan: IUD inserted without complication. Patient was advised to observe for signs and symptoms of infection including but not limited to fever, malodorous vaginal discharge, and/or pain. She was told to check the string monthly for accurate placement. Risks of possible IUD expulsion/misplacement were reviewed with the patient. Bleeding expectations were reviewed and the patient will follow up in 6weeks for string check. Handout regarding patient instructions was given. Orders: Orders POC Urine Today Z30.9 - Encounter for contraceptive management, unspecified Liletta IUD Today Z30.430 - Encounter for insertion of intrauterine contraceptive device 07/17/25918 <Electronically signed by Joyce Taran s CNM> Date _ Joyce Bolanos CNKamla Cosigner Signature: Date (if applicable) CC: ~ [facility] Work Phone: Reason for referral (narrative)No reason for referral information availableWTwin City Hospital Work Phone: Summary Purpose Family History No Family History Records FoundUnknown Family Member Name Dates Details Father Comments:Alcoholism, Heart d isease Status:Active Mother Comments:Hypertension, High chol, alcoholism, Anxiety/Depression Status:Active Unknown Family Member Name Dates Details Father Comments:Alcoholism, Heart d isease Status:Active Mother Comments:Hypertension, High chol, alcoholism, Anxiety/Depression Status:Active Unknown Family Member Name Dates Details Father Comments:Alcoholism, Heart d isease Status:Active Mother Comments:Hypertension, High chol, alcoholism, Anxiety/Depression Status:Active Relationship Condition Age at Onset Recorded Date/T shelia father Myocardial infarction Unknown grandfather Myocardial infarction Unknown Hypertension Unknown uncle Myocardial infarction Unknown mother Hypertension Unknown Unknown Family Member Name Dates Details Father Comments:Alcoholism, Heart d isease Status:Active Mother Comments:Hypertension, High chol, alcoholism, Anxiety/Depression Status:Active Unknown Family Member Name Dates Details Father Comments:Alcoholism, Heart d isease Status:Active Mother Comments:Hypertension, High chol, alcoholism, Anxiety/Depression Status:Active Unknown Family Member Name Dates Details Father Comments:Alcoholism, Heart d isease Status:Active Mother Comments:Hypertension, High chol, alcoholism, Anxiety/Depression Status:Active Unknown Family Member Name Dates Details Father Comments:Alcoholism, Heart d isease Status:Active Mother Comments:Hypertension, High chol, alcoholism, Anxiety/Depression Status:Active Unknown Family Member Name Dates Details Father Comments:Alcoholism, Heart d isease Status:Active Mother Comments:Hypertension, High chol, alcoholism, Anxiety/Depression Status:Active Unknown Family Member Name Dates Details Father Comments:Alcoholism, Heart d isease Status:Active Mother Comments:Hypertension, High chol, alcoholism, Anxiety/Depression Status:Active Unknown Family Member Name Dates Details Father Comments:Alcoholism, Heart d isease Status:Active Mother Comments:Hypertension, High chol, alcoholism, Anxiety/Depression Status:Active Unknown Family Member Name Dates Details Father Comments:Alcoholism, Heart d isease Status:Active Mother Comments:Hypertension, High chol, alcoholism, Anxiety/Depression Status:Active Unknown Family Member Name Dates Details Father Comments:Alcoholism, Heart d isease Status:Active Mother Comments:Hypertension, High chol, alcoholism, Anxiety/Depression Status:Active Advance Directives No Advanced Directives Records Found Advance Directive Response Recorded Date/ Time Living Will No November 08 2:55pm Power of Corporation Lawyer No November 08, 2019 2:55pm Advance Directive Response Recorded Date/ Time Do you have a Healthcare Power of Corporation Lawyer? 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 Chief Complaint Admit Date New OB, LMP 08/14, GLENN 05/21/25 October 11, 2024 2:16pm BP Check October 25, 2024 1: 32pm BP CHECK November 06, 2024 2 :58pm 13 wk ob November 13, 2024 3 :36pm Blood pressure check November 19, 2024 8:53am 17 wk ob December 12, 2024 3:49pm RUQ December 14, 2024 11:42am Reason for Visit Admit Date Fatigue October 11, 2024 2:16pm Obesity affecting September 2:16pm October 11, 2024 2:16pm Rh negative status during Dece 2023 2:16pm [facility] 2:[facility] Thyroid disease affecting De[facility] 2023 2:16pm Chronic hypertension affecting October 11, 2024 2:16pm Fatigue October 25, 2024 1: 32pm Obesity affecting October 25, 2024 1:32pm October 25, 2024 1: 32pm Rh negative status during Keven [email or web address] 1:32pm Supervision of high-risk Jan ry 2024 1:32pm Thyroid disease October 25, 2024 1: 32pm Thyroid disease affecting Keven 2024 1:32pm Chronic hypertension affecting October 25, 2024 1:32pm Fatigue November 06, 2024 2 :58pm Obesity affecting October 2:58pm November 06, 2024 2 :58pm Rh negative status during Keven [email or web address] 2:58pm Supervision of high-risk Pura ry 2024 2:58pm Thyroid disease November 06, 2024 2 :58pm Thyroid disease affecting Keven [email or web address] 2:58pm Chronic hypertension affecting November 06, 2024 2:58pm Elevated liver enzymes November 13 3:36pm Obesity affecting October 3:36pm November 13, 2024 3 :36pm Rh negative status during Keven [email or web address] 3:36pm Supervision of high-risk Pura 2024 3:36pm Thyroid disease November 13, 2024 3 :36pm Thyroid disease affecting Keven nicoley 2024 3:36pm Chronic hypertension affecting November 13, 2024 3:36pm Elevated liver enzymes November 19 8:53am Obesity affecting October 8:53am November 19, 2024 8 :53am Rh negative status during Keven [email or web address] 8:53am Supervision of high-risk Pura 2024 8:53am Thyroid disease November 19, 2024 8 :53am Thyroid disease affecting Keven brenda 2024 8:53am Chronic hypertension affecting November 19, 2024 8:53am Elevated liver enzymes December 12 3:49pm Fatigue December 12, 2024 3:49pm Obesity affecting November 3:49pm December 12, 2024 3:49pm Rh negative status during [facility] 2024 3:49pm Supervision of high-risk [facility] 2024 3:49pm Thyroid disease December 12, 2024 3:49pm Thyroid disease affecting [facility] 2024 3:49pm Chronic hypertension affecting December 12, 2024 3:49pm Chief Complaint Admit Date New OB, LMP 08/14, GLENN 05/21/25 October 11, 2024 2:16pm BP Check October 25, 2024 1: 32pm BP CHECK November 06, 2024 2 :58pm 13 wk ob November 13, 2024 3 :36pm Blood pressure check November 19, 2024 8:53am 17 wk ob December 12, 2024 3:49pm RUQ December 14, 2024 11:42am 21 wk ob January 09, 2025 11: 28am Reason for Visit Admit Date Fatigue October 11, 2024 2:16pm Obesity affecting September 2:16pm October 11, 2024 2:16pm Rh negative status during Dece [facility] 2023 2:16pm Supervision of high-risk Dece 2023 2:16pm Thyroid disease affecting Dece [facility] 2023 2:16pm Chronic hypertension affecting October 11, 2024 2:16pm Fatigue October 25, 2024 1: 32pm Obesity affecting October 25, 2024 1:32pm October 25, 2024 1: 32pm Rh negative status during Keven [email or web address] 1:32pm Supervision of high-risk Oct 2024 1:32pm Thyroid disease October 25, 2024 1: 32pm Thyroid disease affecting Keven [email or web address] 1:32pm Chronic hypertension affecting October 25, 2024 1:32pm Fatigue November 06, 2024 2 :58pm Obesity affecting October 2:58pm November 06, 2024 2 :58pm Rh negative status during Keven 2024 2:58pm Supervision of high-risk Mike ry 2024 2:58pm Thyroid disease November 06, 2024 2 :58pm Thyroid disease affecting Keven brenda 2024 2:58pm Chronic hypertension affecting November 06, 2024 2:58pm Elevated liver enzymes November 13 3:36pm Obesity affecting October 3:36pm November 13, 2024 3 :36pm Rh negative status during Keven brenda 2024 3:36pm Supervision of high-risk Janua ry 2024 3:36pm Thyroid disease November 13, 2024 3 :36pm Thyroid disease affecting Keven gutierrez 2024 3:36pm Chronic hypertension affecting November 13, 2024 3:36pm Elevated liver enzymes November 19 8:53am Obesity affecting October 8:53am November 19, 2024 8 :53am Rh negative status during Keven gutierrez 2024 8:53am Supervision of high-risk Pura ry 2024 8:53am Thyroid disease November 19, 2024 8 :53am Thyroid disease affecting Keven gutierrez 2024 8:53am Chronic hypertension affecting November 19, 2024 8:53am Elevated liver enzymes December 12 3:49pm Fatigue December 12, 2024 3:49pm Obesity affecting November 3:49pm December 12, 2024 3:49pm Rh negative status during [facility] 2024 3:49pm [facility] 3:49pm Thyroid disease December 12, 2024 3:49pm Thyroid disease affecting [facility] 2024 3:49pm Chronic hypertension affecting December 12, 2024 3:49pm Elevated liver enzymes January 09, 2025 11:28am Fatigue January 09, 2025 11: 28am Obesity affecting January 09, 2025 11:28am January 09, 2025 11: 28am Rh negative status during Ruel 2024 11:28am Supervision of high-risk January 09, 2025 11:28am Thyroid disease January 09, 2025 11: 28am Thyroid disease affecting [facility] 2024 11:28am Chronic hypertension affecting January 09, 2025 11:28am Chief Complaint Admit Date BP CHECK November 06, 2024 2 :58pm 13 wk ob November 13, 2024 3 :36pm Blood pressure check November 19, 2024 8:53am 17 wk ob December 12, 2024 3:49pm RUQ December 14, 2024 11:42am 21 wk ob January 09, 2025 11: 28am 25 wk ob February 03, 2025 1:3 3pm 28wk ob/glucose February 24, 2025 1:00pm Reason for Visit Admit Date Fatigue November 06, 2024 2 :58pm Obesity affecting October 2:58pm November 06, 2024 2 :58pm Rh negative status during Keven gutierrez 2024 2:58pm Supervision of high-risk Pura ry 2024 2:58pm Thyroid disease November 06, 2024 2 :58pm Thyroid disease affecting Keven gutierrez 2024 2:58pm Chronic hypertension affecting November 06, 2024 2:58pm Elevated liver enzymes November 13 3:36pm Obesity affecting October 3:36pm November 13, 2024 3 :36pm Rh negative status during Keven gutierrez 2024 3:36pm Supervision of high-risk Pura ry 2024 3:36pm Thyroid disease November 13, 2024 3 :36pm Thyroid disease affecting Keven gutierrez 2024 3:36pm Chronic hypertension affecting November 13, 2024 3:36pm Elevated liver enzymes November 19 8:53am Obesity affecting October 8:53am November 19, 2024 8 :53am Rh negative status during Keven gutierrez 2024 8:53am Supervision of high-risk Pura ry 2024 8:53am Thyroid disease November 19, 2024 8 :53am Thyroid disease affecting Keven gutierrez 2024 8:53am Chronic hypertension affecting November 19, 2024 8:53am Elevated liver enzymes December 12 3:49pm Fatigue December 12, 2024 3:49pm Obesity affecting November 3:49pm December 12, 2024 3:49pm Rh negative status during [facility] 2024 3:49pm Supervision of high-risk Robert 2024 3:49pm Thyroid disease December 12, 2024 3:49pm Thyroid disease affecting [facility] 2024 3:49pm Chronic hypertension affecting December 12, 2024 3:49pm Elevated liver enzymes January 09, 2025 11:28am Fatigue January 09, 2025 11: 28am Obesity affecting January 09, 2025 11:28am January 09, 2025 11: 28am Rh negative status during Ruel h 2024 11:28am Supervision of high-risk January 09, 2025 11:28am Thyroid disease January 09, 2025 11: 28am Thyroid disease affecting Ruel h 2024 11:28am Chronic hypertension affecting January 09, 2025 11:28am Anemia in preg-unspec February 03, 2025 1 :33pm Elevated liver enzymes February 03, 2025 1:33pm Fatigue February 03, 2025 1:3 3pm Obesity affecting February 03, 2025 1:33pm February 03, 2025 1:3 3pm Rh negative status during Apri l 2024 1:33pm Supervision of high-risk February 03, 2025 1:33pm Thyroid disease February 03, 2025 1:3 3pm Thyroid disease affecting Apri l 2024 1:33pm Chronic hypertension affecting February 03, 2025 1:33pm Anemia in preg-unspec February 24, 2025 1:00 pm Elevated liver enzymes February 24, 2025 1:0 0pm Fatigue February 24, 2025 1:00pm Obesity affecting February 24 1:00pm February 24, 2025 1:00pm Rh negative status during February 24, 2025 1:00pm Supervision of high-risk February [id number] 1:00pm Thyroid disease February 24, 2025 1:00pm Thyroid disease affecting February 24, 2025 1:00pm Chronic hypertension affecting February 24, 2025 1:00pm Chief Complaint Admit Date 13 wk ob November 13, 2024 3 :36pm Blood pressure check November 19, 2024 8:53am 17 wk ob December 12, 2024 3:49pm RUQ December 14, 2024 11:42am 21 wk ob January 09, 2025 11: 28am 25 wk ob February 03, 2025 1:3 3pm 28wk ob/glucose February 24, 2025 1:00pm 30wk ob March 12, 2025 11:45 am Reason for Visit Admit Date Elevated liver enzymes November 13 3:36pm Obesity affecting October 3:36pm November 13, 2024 3 :36pm Rh negative status during Keven gutierrez 2024 3:36pm Supervision of high-risk Pura ry 2024 3:36pm Thyroid disease November 13, 2024 3 :36pm Thyroid disease affecting Keven gutierrez 2024 3:36pm Chronic hypertension affecting November 13, 2024 3:36pm Elevated liver enzymes November 19 8:53am Obesity affecting October 8:53am November 19, 2024 8 :53am Rh negative status during Keven gutierrez 2024 8:53am Supervision of high-risk Pura ry 2024 8:53am Thyroid disease November 19, 2024 8 :53am Thyroid disease affecting Keven gutierrez 2024 8:53am Chronic hypertension affecting November 19, 2024 8:53am Elevated liver enzymes December 12 3:49pm Fatigue December 12, 2024 3:49pm Obesity affecting November 3:49pm December 12, 2024 3:49pm Rh negative status during [facility] 2024 3:49pm Supervision of high-risk Robert 2024 3:49pm Thyroid disease December 12, 2024 3:49pm Thyroid disease affecting [facility] 2024 3:49pm Chronic hypertension affecting December 12, 2024 3:49pm Elevated liver enzymes January 09, 2025 11:28am Fatigue January 09, 2025 11: 28am Obesity affecting January 09, 2025 11:28am January 09, 2025 11: 28am Rh negative status during [facility] 2024 11:28am Supervision of high-risk January 09, 2025 11:28am Thyroid disease January 09, 2025 11: 28am Thyroid disease affecting [facility] 2024 11:28am Chronic hypertension affecting January 09, 2025 11:28am Anemia in preg-unspec February 03, 2025 1 :33pm Elevated liver enzymes February 03, 2025 1:33pm Fatigue February 03, 2025 1:3 3pm Obesity affecting February 03, 2025 1:33pm February 03, 2025 1:3 3pm Rh negative status during Apri l 2024 1:33pm Supervision of high-risk February 03, 2025 1:33pm Thyroid disease February 03, 2025 1:3 3pm Thyroid disease affecting Apri l 2024 1:33pm Chronic hypertension affecting February 03, 2025 1:33pm Anemia in preg-unspec February 24, 2025 1:00 pm Elevated liver enzymes February 24, 2025 1:0 0pm Fatigue February 24, 2025 1:00pm Obesity affecting February 24 1:00pm February 24, 2025 1:00pm Rh negative status during February 24, 2025 1:00pm Supervision of high-risk February [id number] 1:00pm Thyroid disease February 24, 2025 1:00pm Thyroid disease affecting February 24, 2025 1:00pm Chronic hypertension affecting February 24, 2025 1:00pm Anemia in preg-unspec March 12, 2025 11: 45am Elevated liver enzymes March 12, 2025 11 :45am Fatigue March 12, 2025 11:45 am Obesity affecting March 12 11:45am March 12, 2025 11:45 am Rh negative status during March 12, 2025 11:45am Supervision of high-risk February [id number] 11:45am Thyroid disease March 12, 2025 11:45 am Thyroid disease affecting March 12, 2025 11:45am Chronic hypertension affecting March 12, 2025 11:45am Chief Complaint Admit Date 17 wk ob December 12, 2024 3:49pm RUQ December 14, 2024 11:42am 21 wk ob January 09, 2025 11: 28am 25 wk ob February 03, 2025 1:3 3pm 28wk ob/glucose February 24, 2025 1:00pm 30wk ob March 12, 2025 11:45 am GROWTH March 28, 2025 8:01a m NST per KW *growth US at 0800 March 28, 2025 8:57am Reason for Visit Admit Date Elevated liver enzymes December 12 3:49pm Fatigue December 12, 2024 3:49pm Obesity affecting November 3:49pm December 12, 2024 3:49pm Rh negative status during [facility] 2024 3:49pm Supervision of high-risk Febru brenda 2024 3:49pm Thyroid disease December 12, 2024 3:49pm Thyroid disease affecting Febr uary 2024 3:49pm Chronic hypertension affecting December 12, 2024 3:49pm Elevated liver enzymes January 09, 2025 11:28am Fatigue January 09, 2025 11: 28am Obesity affecting January 09, 2025 11:28am January 09, 2025 11: 28am Rh negative status during Ruel h 2024 11:28am Supervision of high-risk January 09, 2025 11:28am Thyroid disease January 09, 2025 11: 28am Thyroid disease affecting Ruel h 2024 11:28am Chronic hypertension affecting January 09, 2025 11:28am Anemia in preg-unspec February 03, 2025 1 :33pm Elevated liver enzymes February 03, 2025 1:33pm Fatigue February 03, 2025 1:3 3pm Obesity affecting February 03, 2025 1:33pm February 03, 2025 1:3 3pm Rh negative status during Apri l 2024 1:33pm Supervision of high-risk February 03, 2025 1:33pm Thyroid disease February 03, 2025 1:3 3pm Thyroid disease affecting Apri l 2024 1:33pm Chronic hypertension affecting February 03, 2025 1:33pm Anemia in preg-unspec February 24, 2025 1:00 pm Elevated liver enzymes February 24, 2025 1:0 0pm Fatigue February 24, 2025 1:00pm Obesity affecting February 24 1:00pm February 24, 2025 1:00pm Rh negative status during February 24, 2025 1:00pm Supervision of high-risk February [id number] 1:00pm Thyroid disease February 24, 2025 1:00pm Thyroid disease affecting February 24, 2025 1:00pm Chronic hypertension affecting February 24, 2025 1:00pm Anemia in preg-unspec March 12, 2025 11: 45am Elevated liver enzymes March 12, 2025 11 :45am Fatigue March 12, 2025 11:45 am Obesity affecting March 12 11:45am March 12, 2025 11:45 am Rh negative status during March 12, 2025 11:45am Supervision of high-risk February [id number] 11:45am Thyroid disease March 12, 2025 11:45 am Thyroid disease affecting March 12, 2025 11:45am Chronic hypertension affecting March 12, 2025 11:45am Anemia in preg-unspec March 28, 2025 8:5 7am Elevated liver enzymes March 28, 2025 8: 57am Fatigue March 28, 2025 8:57a m Obesity affecting March 28 8:57am March 28, 2025 8:57a m Rh negative status during March 28, 2025 8:57am Supervision of high-risk March 28, 2025 8:57am Thyroid disease March 28, 2025 8:57a m Thyroid disease affecting March 28, 2025 8:57am Chronic hypertension affecting March 28, 2025 8:57am Chief Complaint Admit Date 17 wk ob December 12, 2024 3:49pm RUQ December 14, 2024 11:42am 21 wk ob January 09, 2025 11: 28am 25 wk ob February 03, 2025 1:3 3pm 28wk ob/glucose February 24, 2025 1:00pm 30wk ob March 12, 2025 11:45 am GROWTH March 28, 2025 8:01a m NST per KW *growth US at 0800 March 28, 2025 8:57am 33wk NST ONLY March 31, 2025 11:01 am Reason for Visit Admit Date Elevated liver enzymes December 12 3:49pm Fatigue December 12, 2024 3:49pm Obesity affecting November 3:49pm December 12, 2024 3:49pm Rh negative status during [facility] 2024 3:49pm Supervision of high-risk Febru brenda 2024 3:49pm Thyroid disease December 12, 2024 3:49pm Thyroid disease affecting [facility] 2024 3:49pm Chronic hypertension affecting December 12, 2024 3:49pm Elevated liver enzymes January 09, 2025 11:28am Fatigue January 09, 2025 11: 28am Obesity affecting January 09, 2025 11:28am January 09, 2025 11: 28am Rh negative status during [facility] 2024 11:28am Supervision of high-risk January 09, 2025 11:28am Thyroid disease January 09, 2025 11: 28am Thyroid disease affecting Ruel h 2024 11:28am Chronic hypertension affecting January 09, 2025 11:28am Anemia in preg-unspec February 03, 2025 1 :33pm Elevated liver enzymes February 03, 2025 1:33pm Fatigue February 03, 2025 1:3 3pm Obesity affecting February 03, 2025 1:33pm February 03, 2025 1:3 3pm Rh negative status during Apri l 2024 1:33pm Supervision of high-risk February 03, 2025 1:33pm Thyroid disease February 03, 2025 1:3 3pm Thyroid disease affecting Apri l 2024 1:33pm Chronic hypertension affecting February 03, 2025 1:33pm Anemia in preg-unspec February 24, 2025 1:00 pm Elevated liver enzymes February 24, 2025 1:0 0pm Fatigue February 24, 2025 1:00pm Obesity affecting February 24 1:00pm February 24, 2025 1:00pm Rh negative status during February 24, 2025 1:00pm Supervision of high-risk February [id number] 1:00pm Thyroid disease February 24, 2025 1:00pm Thyroid disease affecting February 24, 2025 1:00pm Chronic hypertension affecting February 24, 2025 1:00pm Anemia in preg-unspec March 12, 2025 11: 45am Elevated liver enzymes March 12, 2025 11 :45am Fatigue March 12, 2025 11:45 am Obesity affecting March 12 11:45am March 12, 2025 11:45 am Rh negative status during March 12, 2025 11:45am Supervision of high-risk February [id number] 11:45am Thyroid disease March 12, 2025 11:45 am Thyroid disease affecting March 12, 2025 11:45am Chronic hypertension affecting March 12, 2025 11:45am Anemia in preg-unspec March 28, 2025 8:5 7am Elevated liver enzymes March 28, 2025 8: 57am Fatigue March 28, 2025 8:57a m Obesity affecting March 28 8:57am March 28, 2025 8:57a m Rh negative status during March 28, 2025 8:57am Supervision of high-risk March 28, 2025 8:57am Thyroid disease March 28, 2025 8:57a m Thyroid disease affecting March 28, 2025 8:57am Chronic hypertension affecting March 28, 2025 8:57am Anemia in preg-unspec March 31, 2025 11: 01am Elevated liver enzymes March 31, 2025 11 :01am Fatigue March 31, 2025 11:01 am Obesity affecting March 31 11:01am March 31, 2025 11:01 am Rh negative status during March 31, 2025 11:01am Supervision of high-risk March 31, 2025 11:01am Thyroid disease March 31, 2025 11:01 am Thyroid disease affecting March 31, 2025 11:01am Chronic hypertension affecting March 31, 2025 11:01am Chief Complaint Admit Date 17 wk ob December 12, 2024 3:49pm RUQ December 14, 2024 11:42am 21 wk ob January 09, 2025 11: 28am 25 wk ob February 03, 2025 1:3 3pm 28wk ob/glucose February 24, 2025 1:00pm 30wk ob March 12, 2025 11:45 am GROWTH March 28, 2025 8:01a m NST per KW *growth US at 0800 March 28, 2025 8:57am 33wk NST ONLY March 31, 2025 11:01 am 34 wk ob/nst April 08, 2025 10:2 8am Reason for Visit Admit Date Elevated liver enzymes December 12 3:49pm Fatigue December 12, 2024 3:49pm Obesity affecting November 3:49pm December 12, 2024 3:49pm Rh negative status during 2024 3:49pm Supervision of high-risk u [email or web address] 3:49pm Thyroid disease December 12, 2024 3:49pm Thyroid disease affecting 2024 3:49pm Chronic hypertension affecting December 12, 2024 3:49pm Elevated liver enzymes January 09, 2025 11:28am Fatigue January 09, 2025 11: 28am Obesity affecting January 09, 2025 11:28am January 09, 2025 11: 28am Rh negative status during Ruel h 2024 11:28am Supervision of high-risk January 09, 2025 11:28am Thyroid disease January 09, 2025 11: 28am Thyroid disease affecting Ruel h 2024 11:28am Chronic hypertension affecting January 09, 2025 11:28am Anemia in preg-unspec February 03, 2025 1 :33pm Elevated liver enzymes February 03, 2025 1:33pm Fatigue February 03, 2025 1:3 3pm Obesity affecting February 03, 2025 1:33pm February 03, 2025 1:3 3pm Rh negative status during Apri l 2024 1:33pm Supervision of high-risk February 03, 2025 1:33pm Thyroid disease February 03, 2025 1:3 3pm Thyroid disease affecting Apri l 2024 1:33pm Chronic hypertension affecting February 03, 2025 1:33pm Anemia in preg-unspec February 24, 2025 1:00 pm Elevated liver enzymes February 24, 2025 1:0 0pm Fatigue February 24, 2025 1:00pm Obesity affecting February 24 1:00pm February 24, 2025 1:00pm Rh negative status during February 24, 2025 1:00pm Supervision of high-risk February [id number] 1:00pm Thyroid disease February 24, 2025 1:00pm Thyroid disease affecting February 24, 2025 1:00pm Chronic hypertension affecting February 24, 2025 1:00pm Anemia in preg-unspec March 12, 2025 11: 45am Elevated liver enzymes March 12, 2025 11 :45am Fatigue March 12, 2025 11:45 am Obesity affecting March 12 11:45am March 12, 2025 11:45 am Rh negative status during March 12, 2025 11:45am Supervision of high-risk February [id number] 11:45am Thyroid disease March 12, 2025 11:45 am Thyroid disease affecting March 12, 2025 11:45am Chronic hypertension affecting March 12, 2025 11:45am Anemia in preg-unspec March 28, 2025 8:5 7am Elevated liver enzymes March 28, 2025 8: 57am Fatigue March 28, 2025 8:57a m Obesity affecting March 28 8:57am March 28, 2025 8:57a m Rh negative status during March 28, 2025 8:57am Supervision of high-risk March 28, 2025 8:57am Thyroid disease March 28, 2025 8:57a m Thyroid disease affecting March 28, 2025 8:57am Chronic hypertension affecting March 28, 2025 8:57am Anemia in preg-unspec March 31, 2025 11: 01am Elevated liver enzymes March 31, 2025 11 :01am Fatigue March 31, 2025 11:01 am Obesity affecting March 31 11:01am March 31, 2025 11:01 am Rh negative status during March 31, 2025 11:01am Supervision of high-risk March 31, 2025 11:01am Thyroid disease March 31, 2025 11:01 am Thyroid disease affecting March 31, 2025 11:01am Chronic hypertension affecting March 31, 2025 11:01am Anemia in preg-unspec April 08, 2025 10 :28am Elevated liver enzymes April 08, 2025 1 0:28am Fatigue April 08, 2025 10:2 8am Obesity affecting April 08 10:28am April 08, 2025 10:2 8am Rh negative status during April 08, 2025 10:28am Supervision of high-risk April 08, 2025 10:28am Thyroid disease April 08, 2025 10:2 8am Thyroid disease affecting April 08, 2025 10:28am Chronic hypertension affecting April 08, 2025 10:28am Chief Complaint Admit Date RUQ December 14, 2024 11:42am 21 wk ob January 09, 2025 11: 28am 25 wk ob February 03, 2025 1:3 3pm 28wk ob/glucose February 24, 2025 1:00pm 30wk ob March 12, 2025 11:45 am GROWTH March 28, 2025 8:01a m NST per KW *growth US at 0800 March 28, 2025 8:57am 33wk NST ONLY March 31, 2025 11:01 am 34 wk ob/nst April 08, 2025 10:2 8am Reason for Visit Admit Date Elevated liver enzymes January 09, 2025 11:28am Fatigue January 09, 2025 11: 28am Obesity affecting January 09, 2025 11:28am January 09, 2025 11: 28am Rh negative status during [facility] 2024 11:28am Supervision of high-risk January 09, 2025 11:28am Thyroid disease January 09, 2025 11: 28am Thyroid disease affecting [facility] 2024 11:28am Chronic hypertension affecting January 09, 2025 11:28am Anemia in preg-unspec February 03, 2025 1 :33pm Elevated liver enzymes February 03, 2025 1:33pm Fatigue February 03, 2025 1:3 3pm Obesity affecting February 03, 2025 1:33pm February 03, 2025 1:3 3pm Rh negative status during [facility] 2024 1:33pm Supervision of high-risk February 03, 2025 1:33pm Thyroid disease February 03, 2025 1:3 3pm Thyroid disease affecting [facility] 2024 1:33pm Chronic hypertension affecting February 03, 2025 1:33pm Anemia in preg-unspec February 24, 2025 1:00 pm Elevated liver enzymes February 24, 2025 1:0 0pm Fatigue February 24, 2025 1:00pm Obesity affecting February 24 1:00pm February 24, 2025 1:00pm Rh negative status during February 24, 2025 1:00pm Supervision of high-risk February [id number] 1:00pm Thyroid disease February 24, 2025 1:00pm Thyroid disease affecting February 24, 2025 1:00pm Chronic hypertension affecting February 24, 2025 1:00pm Anemia in preg-unspec March 12, 2025 11: 45am Elevated liver enzymes March 12, 2025 11 :45am Fatigue March 12, 2025 11:45 am Obesity affecting March 12 11:45am March 12, 2025 11:45 am Rh negative status during March 12, 2025 11:45am Supervision of high-risk February [id number] 11:45am Thyroid disease March 12, 2025 11:45 am Thyroid disease affecting March 12, 2025 11:45am Chronic hypertension affecting March 12, 2025 11:45am Anemia in preg-unspec March 28, 2025 8:5 7am Elevated liver enzymes March 28, 2025 8: 57am Fatigue March 28, 2025 8:57a m Obesity affecting March 28 8:57am March 28, 2025 8:57a m Rh negative status during March 28, 2025 8:57am Supervision of high-risk March 28, 2025 8:57am Thyroid disease March 28, 2025 8:57a m Thyroid disease affecting March 28, 2025 8:57am Chronic hypertension affecting March 28, 2025 8:57am Anemia in preg-unspec March 31, 2025 11: 01am Elevated liver enzymes March 31, 2025 11 :01am Fatigue March 31, 2025 11:01 am Obesity affecting March 31 11:01am March 31, 2025 11:01 am Rh negative status during March 31, 2025 11:01am Supervision of high-risk March 31, 2025 11:01am Thyroid disease March 31, 2025 11:01 am Thyroid disease affecting March 31, 2025 11:01am Chronic hypertension affecting March 31, 2025 11:01am Anemia in preg-unspec April 08, 2025 10 :28am Elevated liver enzymes April 08, 2025 1 0:28am Fatigue April 08, 2025 10:2 8am Obesity affecting April 08 10:28am April 08, 2025 10:2 8am Rh negative status during April 08, 2025 10:28am Supervision of high-risk April 08, 2025 10:28am Thyroid disease April 08, 2025 10:2 8am Thyroid disease affecting April 08, 2025 10:28am Chronic hypertension affecting April 08, 2025 10:28am Chief Complaint Admit Date 21 wk ob January 09, 2025 11: 28am 25 wk ob February 03, 2025 1:3 3pm 28wk ob/glucose February 24, 2025 1:00pm 30wk ob March 12, 2025 11:45 am GROWTH March 28, 2025 8:01a m NST per KW *growth US at 0800 March 28, 2025 8:57am 33wk NST ONLY March 31, 2025 11:01 am 34 wk ob/nst April 08, 2025 10:2 8am 35 wk NST ONLY April 14, 2025 11:3 5am Reason for Visit Admit Date Elevated liver enzymes January 09, 2025 11:28am Fatigue January 09, 2025 11: 28am Obesity affecting January 09, 2025 11:28am January 09, 2025 11: 28am Rh negative status during [facility] 2024 11:28am Supervision of high-risk January 09, 2025 11:28am Thyroid disease January 09, 2025 11: 28am Thyroid disease affecting [facility] 2024 11:28am Chronic hypertension affecting January 09, 2025 11:28am Anemia in preg-unspec February 03, 2025 1 :33pm Elevated liver enzymes February 03, 2025 1:33pm Fatigue February 03, 2025 1:3 3pm Obesity affecting February 03, 2025 1:33pm February 03, 2025 1:3 3pm Rh negative status during [facility] 2024 1:33pm Supervision of high-risk February 03, 2025 1:33pm Thyroid disease February 03, 2025 1:3 3pm Thyroid disease affecting [facility] 2024 1:33pm Chronic hypertension affecting February 03, 2025 1:33pm Anemia in preg-unspec February 24, 2025 1:00 pm Elevated liver enzymes February 24, 2025 1:0 0pm Fatigue February 24, 2025 1:00pm Obesity affecting February 24 1:00pm February 24, 2025 1:00pm Rh negative status during February 24, 2025 1:00pm Supervision of high-risk February [id number] 1:00pm Thyroid disease February 24, 2025 1:00pm Thyroid disease affecting February 24, 2025 1:00pm Chronic hypertension affecting February 24, 2025 1:00pm Anemia in preg-unspec March 12, 2025 11: 45am Elevated liver enzymes March 12, 2025 11 :45am Fatigue March 12, 2025 11:45 am Obesity affecting March 12 11:45am March 12, 2025 11:45 am Rh negative status during March 12, 2025 11:45am Supervision of high-risk February [id number] 11:45am Thyroid disease March 12, 2025 11:45 am Thyroid disease affecting March 12, 2025 11:45am Chronic hypertension affecting March 12, 2025 11:45am Anemia in preg-unspec March 28, 2025 8:5 7am Elevated liver enzymes March 28, 2025 8: 57am Fatigue March 28, 2025 8:57a m Obesity affecting March 28 8:57am March 28, 2025 8:57a m Rh negative status during March 28, 2025 8:57am Supervision of high-risk March 28, 2025 8:57am Thyroid disease March 28, 2025 8:57a m Thyroid disease affecting March 28, 2025 8:57am Chronic hypertension affecting March 28, 2025 8:57am Anemia in preg-unspec March 31, 2025 11: 01am Elevated liver enzymes March 31, 2025 11 :01am Fatigue March 31, 2025 11:01 am Obesity affecting March 31 11:01am March 31, 2025 11:01 am Rh negative status during March 31, 2025 11:01am Supervision of high-risk March 31, 2025 11:01am Thyroid disease March 31, 2025 11:01 am Thyroid disease affecting March 31, 2025 11:01am Chronic hypertension affecting March 31, 2025 11:01am Anemia in preg-unspec April 08, 2025 10 :28am Elevated liver enzymes April 08, 2025 1 0:28am Fatigue April 08, 2025 10:2 8am Obesity affecting April 08 025 10:28am April 08, 2025 10:2 8am Rh negative status during April 08, 2025 10:28am Supervision of high-risk April 08, 2025 10:28am Thyroid disease April 08, 2025 10:2 8am Thyroid disease affecting April 08, 2025 10:28am Chronic hypertension affecting April 08, 2025 10:28am Anemia in preg-unspec April 14, 2025 11 :35am Elevated liver enzymes April 14, 2025 1 1:35am Fatigue April 14, 2025 11:3 5am Obesity affecting April 14, 2 025 11:35am April 14, 2025 11:3 5am Rh negative status during April 14, 2025 11:35am Supervision of high-risk April 14, 2025 11:35am Thyroid disease April 14, 2025 11:3 5am Thyroid disease affecting April 14, 2025 11:35am Chronic hypertension affecting April 14, 2025 11:35am Chief Complaint Admit Date 21 wk ob January 09, 2025 11: 28am 25 wk ob February 03, 2025 1:3 3pm 28wk ob/glucose February 24, 2025 1:00pm 30wk ob March 12, 2025 11:45 am GROWTH March 28, 2025 8:01a m NST per KW *growth US at 0800 March 28, 2025 8:57am 33wk NST ONLY March 31, 2025 11:01 am 34 wk ob/nst April 08, 2025 10:2 8am 35 wk NST ONLY April 14, 2025 11:3 5am 36 wk ob/nst April 21, 2025 1:07 pm Reason for Visit Admit Date Elevated liver enzymes January 09, 2025 11:28am Fatigue January 09, 2025 11: 28am Obesity affecting January 09, 2025 11:28am January 09, 2025 11: 28am Rh negative status during [facility] 2024 11:28am Supervision of high-risk January 09, 2025 11:28am Thyroid disease January 09, 2025 11: 28am Thyroid disease affecting [facility] 2024 11:28am Chronic hypertension affecting January 09, 2025 11:28am Anemia in preg-unspec February 03, 2025 1 :33pm Elevated liver enzymes February 03, 2025 1:33pm Fatigue February 03, 2025 1:3 3pm Obesity affecting February 03, 2025 1:33pm February 03, 2025 1:3 3pm Rh negative status during [facility] 2024 1:33pm Supervision of high-risk February 03, 2025 1:33pm Thyroid disease February 03, 2025 1:3 3pm Thyroid disease affecting [facility] 2024 1:33pm Chronic hypertension affecting February 03, 2025 1:33pm Anemia in preg-unspec February 24, 2025 1:00 pm Elevated liver enzymes February 24, 2025 1:0 0pm Fatigue February 24, 2025 1:00pm Obesity affecting February 24 1:00pm February 24, 2025 1:00pm Rh negative status during February 24, 2025 1:00pm Supervision of high-risk February [id number] 1:00pm Thyroid disease February 24, 2025 1:00pm Thyroid disease affecting February 24, 2025 1:00pm Chronic hypertension affecting February 24, 2025 1:00pm Anemia in preg-unspec March 12, 2025 11: 45am Elevated liver enzymes March 12, 2025 11 :45am Fatigue March 12, 2025 11:45 am Obesity affecting March 12 11:45am March 12, 2025 11:45 am Rh negative status during March 12, 2025 11:45am Supervision of high-risk February 212024 11:45am Thyroid disease March 12, 2025 11:45 am Thyroid disease affecting March 12, 2025 11:45am Chronic hypertension affecting March 12, 2025 11:45am Anemia in preg-unspec March 28, 2025 8:5 7am Elevated liver enzymes March 28, 2025 8: 57am Fatigue March 28, 2025 8:57a m Obesity affecting March 28 8:57am March 28, 2025 8:57a m Rh negative status during March 28, 2025 8:57am Supervision of high-risk March 28, 2025 8:57am Thyroid disease March 28, 2025 8:57a m Thyroid disease affecting March 28, 2025 8:57am Chronic hypertension affecting March 28, 2025 8:57am Anemia in preg-unspec March 31, 2025 11: 01am Elevated liver enzymes March 31, 2025 11 :01am Fatigue March 31, 2025 11:01 am Obesity affecting March 31 11:01am March 31, 2025 11:01 am Rh negative status during March 31, 2025 11:01am Supervision of high-risk March 31, 2025 11:01am Thyroid disease March 31, 2025 11:01 am Thyroid disease affecting March 31, 2025 11:01am Chronic hypertension affecting March 31, 2025 11:01am Anemia in preg-unspec April 08, 2025 10 :28am Elevated liver enzymes April 08, 2025 1 0:28am Fatigue April 08, 2025 10:2 8am Obesity affecting April 08 10:28am April 08, 2025 10:2 8am Rh negative status during April 08, 2025 10:28am Supervision of high-risk April 08, 2025 10:28am Thyroid disease April 08, 2025 10:2 8am Thyroid disease affecting April 08, 2025 10:28am Chronic hypertension affecting April 08, 2025 10:28am Anemia in preg-unspec April 14, 2025 11 :35am Elevated liver enzymes April 14, 2025 1 1:35am Fatigue April 14, 2025 11:3 5am Obesity affecting April 14 11:35am April 14, 2025 11:3 5am Rh negative status during April 14, 2025 11:35am Supervision of high-risk April 14, 2025 11:35am Thyroid disease April 14, 2025 11:3 5am Thyroid disease affecting April 14, 2025 11:35am Chronic hypertension affecting April 14, 2025 11:35am Anemia in preg-unspec April 21, 2025 1: 07pm Elevated liver enzymes April 21, 2025 1 :07pm Fatigue April 21, 2025 1:07 pm Obesity affecting April 21 025 1:07pm April 21, 2025 1:07 pm Rh negative status during April 21, 2025 1:07pm Supervision of high-risk April 21, 2025 1:07pm Thyroid disease April 21, 2025 1:07 pm Thyroid disease affecting April 21, 2025 1:07pm Chronic hypertension affecting April 21, 2025 1:07pm Chief Complaint Admit Date 21 wk ob January 09, 2025 11: 28am 25 wk ob February 03, 2025 1:3 3pm 28wk ob/glucose February 24, 2025 1:00pm 30wk ob March 12, 2025 11:45 am GROWTH March 28, 2025 8:01a m NST per KW *growth US at 0800 March 28, 2025 8:57am 33wk NST ONLY March 31, 2025 11:01 am 34 wk ob/nst April 08, 2025 10:2 8am 35 wk NST ONLY April 14, 2025 11:3 5am 36 wk ob/nst April 21, 2025 1:07 pm BPP April 21, 2025 2:00 pm BPP April 21, 2025 4:05 pm Reason for Visit Admit Date Elevated liver enzymes January 09, 2025 11:28am Fatigue January 09, 2025 11: 28am Obesity affecting January 09, 2025 11:28am January 09, 2025 11: 28am Rh negative status during [facility] 2024 11:28am Supervision of high-risk January 09, 2025 11:28am Thyroid disease January 09, 2025 11: 28am Thyroid disease affecting [facility] 2024 11:28am Chronic hypertension affecting January 09, 2025 11:28am Anemia in preg-unspec February 03, 2025 1 :33pm Elevated liver enzymes February 03, 2025 1:33pm Fatigue February 03, 2025 1:3 3pm Obesity affecting February 03, 2025 1:33pm February 03, 2025 1:3 3pm Rh negative status during [facility] 2024 1:33pm Supervision of high-risk February 03, 2025 1:33pm Thyroid disease February 03, 2025 1:3 3pm Thyroid disease affecting [facility] 2024 1:33pm Chronic hypertension affecting February 03, 2025 1:33pm Anemia in preg-unspec February 24, 2025 1:00 pm Elevated liver enzymes February 24, 2025 1:0 0pm Fatigue February 24, 2025 1:00pm Obesity affecting February 24 1:00pm February 24, 2025 1:00pm Rh negative status during February 24, 2025 1:00pm Supervision of high-risk February [id number] 1:00pm Thyroid disease February 24, 2025 1:00pm Thyroid disease affecting February 24, 2025 1:00pm Chronic hypertension affecting February 24, 2025 1:00pm Anemia in preg-unspec March 12, 2025 11: 45am Elevated liver enzymes March 12, 2025 11 :45am Fatigue March 12, 2025 11:45 am Obesity affecting March 12 11:45am March 12, 2025 11:45 am Rh negative status during March 12, 2025 11:45am Supervision of high-risk February 212024 11:45am Thyroid disease March 12, 2025 11:45 am Thyroid disease affecting March 12, 2025 11:45am Chronic hypertension affecting March 12, 2025 11:45am Anemia in preg-unspec March 28, 2025 8:5 7am Elevated liver enzymes March 28, 2025 8: 57am Fatigue March 28, 2025 8:57a m Obesity affecting March 28 8:57am March 28, 2025 8:57a m Rh negative status during March 28, 2025 8:57am Supervision of high-risk March 28, 2025 8:57am Thyroid disease March 28, 2025 8:57a m Thyroid disease affecting March 28, 2025 8:57am Chronic hypertension affecting March 28, 2025 8:57am Anemia in preg-unspec March 31, 2025 11: 01am Elevated liver enzymes March 31, 2025 11 :01am Fatigue March 31, 2025 11:01 am Obesity affecting March 31 11:01am March 31, 2025 11:01 am Rh negative status during March 31, 2025 11:01am Supervision of high-risk March 31, 2025 11:01am Thyroid disease March 31, 2025 11:01 am Thyroid disease affecting March 31, 2025 11:01am Chronic hypertension affecting March 31, 2025 11:01am Anemia in preg-unspec April 08, 2025 10 :28am Elevated liver enzymes April 08, 2025 1 0:28am Fatigue April 08, 2025 10:2 8am Obesity affecting April 08 10:28am April 08, 2025 10:2 8am Rh negative status during April 08, 2025 10:28am Supervision of high-risk April 08, 2025 10:28am Thyroid disease April 08, 2025 10:2 8am Thyroid disease affecting April 08, 2025 10:28am Chronic hypertension affecting April 08, 2025 10:28am Anemia in preg-unspec April 14, 2025 11 :35am Elevated liver enzymes April 14, 2025 1 1:35am Fatigue April 14, 2025 11:3 5am Obesity affecting April 14 025 11:35am April 14, 2025 11:3 5am Rh negative status during April 14, 2025 11:35am Supervision of high-risk April 14, 2025 11:35am Thyroid disease April 14, 2025 11:3 5am Thyroid disease affecting April 14, 2025 11:35am Chronic hypertension affecting April 14, 2025 11:35am Anemia in preg-unspec April 21, 2025 1: 07pm Elevated liver enzymes April 21, 2025 1 :07pm Fatigue April 21, 2025 1:07 pm Obesity affecting April 21 025 1:07pm April 21, 2025 1:07 pm Rh negative status during April 21, 2025 1:07pm Supervision of high-risk April 21, 2025 1:07pm Thyroid disease April 21, 2025 1:07 pm Thyroid disease affecting April 21, 2025 1:07pm Chronic hypertension affecting April 21, 2025 1:07pm Anemia in preg-unspec April 21, 2025 2: 00pm Antepartum variable deceleration April 212024 2:00pm Elevated liver enzymes April 21, 2025 2 :00pm Fatigue April 21, 2025 2:00 pm Obesity affecting April 21 025 2:00pm April 21, 2025 2:00 pm Rh negative status during April 21, 2025 2:00pm Supervision of high-risk April 21, 2025 2:00pm Thyroid disease April 21, 2025 2:00 pm Thyroid disease affecting April 21, 2025 2:00pm Chronic hypertension affecting April 21, 2025 2:00pm Chief Complaint Admit Date 21 wk ob January 09, 2025 11: 28am 25 wk ob February 03, 2025 1:3 3pm 28wk ob/glucose February 24, 2025 1:00pm 30wk ob March 12, 2025 11:45 am GROWTH March 28, 2025 8:01a m NST per KW *growth US at 0800 March 28, 2025 8:57am 33wk NST ONLY March 31, 2025 11:01 am 34 wk ob/nst April 08, 2025 10:2 8am 35 wk NST ONLY April 14, 2025 11:3 5am 36 wk ob/nst April 21, 2025 1:07 pm BPP April 21, 2025 2:00 pm BPP April 21, 2025 4:05 pm 37 ob/nst April 28, 2025 1:05p m Reason for Visit Admit Date Elevated liver enzymes January 09, 2025 11:28am Fatigue January 09, 2025 11: 28am Obesity affecting January 09, 2025 11:28am January 09, 2025 11: 28am Rh negative status during [facility] 2024 11:28am Supervision of high-risk January 09, 2025 11:28am Thyroid disease January 09, 2025 11: 28am Thyroid disease affecting [facility] 2024 11:28am Chronic hypertension affecting January 09, 2025 11:28am Anemia in preg-unspec February 03, 2025 1 :33pm Elevated liver enzymes February 03, 2025 1:33pm Fatigue February 03, 2025 1:3 3pm Obesity affecting February 03, 2025 1:33pm February 03, 2025 1:3 3pm Rh negative status during [facility] 2024 1:33pm Supervision of high-risk February 03, 2025 1:33pm Thyroid disease February 03, 2025 1:3 3pm Thyroid disease affecting [facility] 2024 1:33pm Chronic hypertension affecting February 03, 2025 1:33pm Anemia in preg-unspec February 24, 2025 1:00 pm Elevated liver enzymes February 24, 2025 1:0 0pm Fatigue February 24, 2025 1:00pm Obesity affecting February 24 1:00pm February 24, 2025 1:00pm Rh negative status during February 24, 2025 1:00pm Supervision of high-risk February [id number] 1:00pm Thyroid disease February 24, 2025 1:00pm Thyroid disease affecting February 24, 2025 1:00pm Chronic hypertension affecting February 24, 2025 1:00pm Anemia in preg-unspec March 12, 2025 11: 45am Elevated liver enzymes March 12, 2025 11 :45am Fatigue March 12, 2025 11:45 am Obesity affecting March 12 11:45am March 12, 2025 11:45 am Rh negative status during March 12, 2025 11:45am Supervision of high-risk February 212024 11:45am Thyroid disease March 12, 2025 11:45 am Thyroid disease affecting March 12, 2025 11:45am Chronic hypertension affecting March 12, 2025 11:45am Anemia in preg-unspec March 28, 2025 8:5 7am Elevated liver enzymes March 28, 2025 8: 57am Fatigue March 28, 2025 8:57a m Obesity affecting March 28 8:57am March 28, 2025 8:57a m Rh negative status during March 28, 2025 8:57am Supervision of high-risk March 28, 2025 8:57am Thyroid disease March 28, 2025 8:57a m Thyroid disease affecting March 28, 2025 8:57am Chronic hypertension affecting March 28, 2025 8:57am Anemia in preg-unspec March 31, 2025 11: 01am Elevated liver enzymes March 31, 2025 11 :01am Fatigue March 31, 2025 11:01 am Obesity affecting March 31 11:01am March 31, 2025 11:01 am Rh negative status during March 31, 2025 11:01am Supervision of high-risk March 31, 2025 11:01am Thyroid disease March 31, 2025 11:01 am Thyroid disease affecting March 31, 2025 11:01am Chronic hypertension affecting March 31, 2025 11:01am Anemia in preg-unspec April 08, 2025 10 :28am Elevated liver enzymes April 08, 2025 1 0:28am Fatigue April 08, 2025 10:2 8am Obesity affecting April 08 10:28am April 08, 2025 10:2 8am Rh negative status during April 08, 2025 10:28am Supervision of high-risk April 08, 2025 10:28am Thyroid disease April 08, 2025 10:2 8am Thyroid disease affecting April 08, 2025 10:28am Chronic hypertension affecting April 08, 2025 10:28am Anemia in preg-unspec April 14, 2025 11 :35am Elevated liver enzymes April 14, 2025 1 1:35am Fatigue April 14, 2025 11:3 5am Obesity affecting April 14 025 11:35am April 14, 2025 11:3 5am Rh negative status during April 14, 2025 11:35am Supervision of high-risk April 14, 2025 11:35am Thyroid disease April 14, 2025 11:3 5am Thyroid disease affecting April 14, 2025 11:35am Chronic hypertension affecting April 14, 2025 11:35am Anemia in preg-unspec April 21, 2025 1: 07pm Elevated liver enzymes April 21, 2025 1 :07pm Fatigue April 21, 2025 1:07 pm Obesity affecting April 21 025 1:07pm April 21, 2025 1:07 pm Rh negative status during April 21, 2025 1:07pm Supervision of high-risk April 21, 2025 1:07pm Thyroid disease April 21, 2025 1:07 pm Thyroid disease affecting April 21, 2025 1:07pm Chronic hypertension affecting April 21, 2025 1:07pm Anemia in preg-unspec April 21, 2025 2: 00pm Antepartum variable deceleration April [id number] 2:00pm Elevated liver enzymes April 21, 2025 2 :00pm Fatigue April 21, 2025 2:00 pm Obesity affecting April 21 025 2:00pm April 21, 2025 2:00 pm Rh negative status during April 21, 2025 2:00pm Supervision of high-risk April 21, 2025 2:00pm Thyroid disease April 21, 2025 2:00 pm Thyroid disease affecting April 21, 2025 2:00pm Chronic hypertension affecting April 21, 2025 2:00pm Anemia in preg-unspec April 28, 2025 1:0 5pm Antepartum variable deceleration April 1:05pm Elevated liver enzymes April 28, 2025 1: 05pm Fatigue April 28, 2025 1:05p m Obesity affecting April 28 1:05pm April 28, 2025 1:05p m Rh negative status during April 28, 2025 1:05pm Supervision of high-risk April 28, 2025 1:05pm Thyroid disease April 28, 2025 1:05p m Thyroid disease affecting April 28, 2025 1:05pm Chronic hypertension affecting April 28, 2025 1:05pm Chief Complaint Admit Date 21 wk ob January 09, 2025 11: 28am 25 wk ob February 03, 2025 1:3 3pm 28wk ob/glucose February 24, 2025 1:00pm 30wk ob March 12, 2025 11:45 am GROWTH March 28, 2025 8:01a m NST per KW *growth US at 0800 March 28, 2025 8:57am 33wk NST ONLY March 31, 2025 11:01 am 34 wk ob/nst April 08, 2025 10:2 8am 35 wk NST ONLY April 14, 2025 11:3 5am 36 wk ob/nst April 21, 2025 1:07 pm BPP April 21, 2025 2:00 pm BPP April 21, 2025 4:05 pm 37 ob/nst April 28, 2025 1:05p m GROWTH April 29, 2025 1:07p m Chief Complaint Admit Date wk ob January 09, 2025 11: 28am 25 wk ob February 03, 2025 1:3 3pm 28wk ob/glucose February 24, 2025 1:00pm 30wk ob March 12, 2025 11:45 am GROWTH March 28, 2025 8:01a m NST per KW *growth US at 0800 March 28, 2025 8:57am 33wk NST ONLY March 31, 2025 11:01 am 34 wk ob/nst April 08, 2025 10:2 8am 35 wk NST ONLY April 14, 2025 11:3 5am 36 wk ob/nst April 21, 2025 1:07 pm BPP April 21, 2025 2:00 pm BPP April 21, 2025 4:05 pm 37 ob/nst April 28, 2025 1:05p m GROWTH April 29, 2025 1:07p m 38 wk ob/nst May 05, 2025 11:2 8am Chief Complaint Admit Date 21 wk ob January 09, 2025 11: 28am 25 wk ob February 03, 2025 1:3 3pm 28wk ob/glucose February 24, 2025 1:00pm 30wk ob March 12, 2025 11:45 am GROWTH March 28, 2025 8:01a m NST per KW *growth US at 0800 March 28, 2025 8:57am 33wk NST ONLY March 31, 2025 11:01 am 34 wk ob/nst April 08, 2025 10:2 8am 35 wk NST ONLY April 14, 2025 11:3 5am 36 wk ob/nst April 21, 2025 1:07 pm BPP April 21, 2025 2:00 pm BPP April 21, 2025 4:05 pm 37 ob/nst April 28, 2025 1:05p m GROWTH April 29, 2025 1:07p m 38 wk ob/nst May 05, 2025 12:2 7pm Reason for Visit Admit Date Elevated liver enzymes January 09, 2025 11:28am Fatigue January 09, 2025 11: 28am Obesity affecting January 09, 2025 11:28am January 09, 2025 11: 28am Rh negative status during [facility] 2024 11:28am Supervision of high-risk January 09, 2025 11:28am Thyroid disease January 09, 2025 11: 28am Thyroid disease affecting [facility] 2024 11:28am Chronic hypertension affecting January 09, 2025 11:28am Anemia in preg-unspec February 03, 2025 1 :33pm Elevated liver enzymes February 03, 2025 1:33pm Fatigue February 03, 2025 1:3 3pm Obesity affecting February 03, 2025 1:33pm February 03, 2025 1:3 3pm Rh negative status during [facility] 2024 1:33pm Supervision of high-risk February 03, 2025 1:33pm Thyroid disease February 03, 2025 1:3 3pm Thyroid disease affecting [facility] 2024 1:33pm Chronic hypertension affecting February 03, 2025 1:33pm Anemia in preg-unspec February 24, 2025 1:00 pm Elevated liver enzymes February 24, 2025 1:0 0pm Fatigue February 24, 2025 1:00pm Obesity affecting February 24 1:00pm February 24, 2025 1:00pm Rh negative status during February 24, 2025 1:00pm Supervision of high-risk February 242024 1:00pm Thyroid disease February 24, 2025 1:00pm Thyroid disease affecting February 24, 2025 1:00pm Chronic hypertension affecting February 24, 2025 1:00pm Anemia in preg-unspec March 12, 2025 11: 45am Elevated liver enzymes March 12, 2025 11 :45am Fatigue March 12, 2025 11:45 am Obesity affecting March 12 11:45am March 12, 2025 11:45 am Rh negative status during March 12, 2025 11:45am Supervision of high-risk February 212024 11:45am Thyroid disease March 12, 2025 11:45 am Thyroid disease affecting March 12, 2025 11:45am Chronic hypertension affecting March 12, 2025 11:45am Anemia in preg-unspec March 28, 2025 8:5 7am Elevated liver enzymes March 28, 2025 8: 57am Fatigue March 28, 2025 8:57a m Obesity affecting March 28 8:57am March 28, 2025 8:57a m Rh negative status during March 28, 2025 8:57am Supervision of high-risk March 28, 2025 8:57am Thyroid disease March 28, 2025 8:57a m Thyroid disease affecting March 28, 2025 8:57am Chronic hypertension affecting March 28, 2025 8:57am Anemia in preg-unspec March 31, 2025 11: 01am Elevated liver enzymes March 31, 2025 11 :01am Fatigue March 31, 2025 11:01 am Obesity affecting March 31 11:01am March 31, 2025 11:01 am Rh negative status during March 31, 2025 11:01am Supervision of high-risk March 31, 2025 11:01am Thyroid disease March 31, 2025 11:01 am Thyroid disease affecting March 31, 2025 11:01am Chronic hypertension affecting March 31, 2025 11:01am Anemia in preg-unspec April 08, 2025 10 :28am Elevated liver enzymes April 08, 2025 1 0:28am Fatigue April 08, 2025 10:2 8am Obesity affecting April 08 10:28am April 08, 2025 10:2 8am Rh negative status during April 08, 2025 10:28am Supervision of high-risk April 08, 2025 10:28am Thyroid disease April 08, 2025 10:2 8am Thyroid disease affecting April 08, 2025 10:28am Chronic hypertension affecting April 08, 2025 10:28am Anemia in preg-unspec April 14, 2025 11 :35am Elevated liver enzymes April 14, 2025 1 1:35am Fatigue April 14, 2025 11:3 5am Obesity affecting April 14 11:35am April 14, 2025 11:3 5am Rh negative status during April 14, 2025 11:35am Supervision of high-risk April 14, 2025 11:35am Thyroid disease April 14, 2025 11:3 5am Thyroid disease affecting April 14, 2025 11:35am Chronic hypertension affecting April 14, 2025 11:35am Anemia in preg-unspec April 21, 2025 1: 07pm Elevated liver enzymes April 21, 2025 1 :07pm Fatigue April 21, 2025 1:07 pm Obesity affecting April 21 025 1:07pm April 21, 2025 1:07 pm Rh negative status during April 21, 2025 1:07pm Supervision of high-risk April 21, 2025 1:07pm Thyroid disease April 21, 2025 1:07 pm Thyroid disease affecting April 21, 2025 1:07pm Chronic hypertension affecting April 21, 2025 1:07pm Anemia in preg-unspec April 21, 2025 2: 00pm Antepartum variable deceleration April 212024 2:00pm Elevated liver enzymes April 21, 2025 2 :00pm Fatigue April 21, 2025 2:00 pm Obesity affecting April 21, 2 025 2:00pm April 21, 2025 2:00 pm Rh negative status during April 21, 2025 2:00pm Supervision of high-risk April 21, 2025 2:00pm Thyroid disease April 21, 2025 2:00 pm Thyroid disease affecting April 21, 2025 2:00pm Chronic hypertension affecting April 21, 2025 2:00pm Anemia in preg-unspec April 28, 2025 1:0 5pm Antepartum variable deceleration April 1:05pm Elevated liver enzymes April 28, 2025 1: 05pm Fatigue April 28, 2025 1:05p m Obesity affecting April 28 1:05pm April 28, 2025 1:05p m Rh negative status during April 28, 2025 1:05pm Supervision of high-risk April 28, 2025 1:05pm Thyroid disease April 28, 2025 1:05p m Thyroid disease affecting April 28, 2025 1:05pm Chronic hypertension affecting April 28, 2025 1:05pm Anemia in preg-unspec May 05, 2025 12 :27pm Antepartum variable deceleration May [id number] 12:27pm Elevated liver enzymes May 05, 2025 1 2:27pm Fatigue May 05, 2025 12:2 7pm Obesity affecting May 05, 025 12:27pm May 05, 2025 12:2 7pm Rh negative status during May 05, 2025 12:27pm Supervision of high-risk May 05, 2025 12:27pm Thyroid disease May 05, 2025 12:2 7pm Thyroid disease affecting May 05, 2025 12:27pm Chronic hypertension affecting May 05, 2025 12:27pm Chief Complaint Admit Date 25 wk ob February 03, 2025 1:3 3pm 28wk ob/glucose February 24, 2025 1:00pm 30wk ob March 12, 2025 11:45 am GROWTH March 28, 2025 8:01a m NST per KW *growth US at 0800 March 28, 2025 8:57am 33wk NST ONLY March 31, 2025 11:01 am 34 wk ob/nst April 08, 2025 10:2 8am 35 wk NST ONLY April 14, 2025 11:3 5am 36 wk ob/nst April 21, 2025 1:07 pm BPP April 21, 2025 2:00 pm BPP April 21, 2025 4:05 pm 37 ob/nst April 28, 2025 1:05p m GROWTH April 29, 2025 1:07p m 38 wk ob/nst May 05, 2025 12:2 7pm INDUCTION May 09, 2025 8:05 am INDUCTION May 09, 2025 5:15 pm INDUCTION May 10, 2025 10:3 7am INDUCTION May 11, 2025 8:57 am Reason for Visit Admit Date Anemia in preg-unspec February 03, 2025 1 :33pm Obesity affecting February 03, 2025 1:33pm February 03, 2025 1:3 3pm Rh negative status during Apri l 2024 1:33pm Supervision of high-risk February 03, 2025 1:33pm Thyroid disease February 03, 2025 1:3 3pm Chronic hypertension affecting February 03, 2025 1:33pm Elevated liver enzymes February 03, 2025 1:33pm Fatigue February 03, 2025 1:3 3pm Thyroid disease affecting Apri l 2024 1:33pm Anemia in preg-unspec February 24, 2025 1:00 pm Obesity affecting February 24 1:00pm February 24, 2025 1:00pm Rh negative status during February 24, 2025 1:00pm Supervision of high-risk February 242024 1:00pm Thyroid disease February 24, 2025 1:00pm Chronic hypertension affecting February 24, 2025 1:00pm Elevated liver enzymes February 24, 2025 1:0 0pm Fatigue February 24, 2025 1:00pm Thyroid disease affecting February 24, 2025 1:00pm Anemia in preg-unspec March 12, 2025 11: 45am Obesity affecting March 12 11:45am March 12, 2025 11:45 am Rh negative status during March 12, 2025 11:45am Supervision of high-risk February 212024 11:45am Thyroid disease March 12, 2025 11:45 am Chronic hypertension affecting March 12, 2025 11:45am Elevated liver enzymes March 12, 2025 11 :45am Fatigue March 12, 2025 11:45 am Thyroid disease affecting March 12, 2025 11:45am Anemia in preg-unspec March 28, 2025 8:5 7am Obesity affecting March 28 8:57am March 28, 2025 8:57a m Rh negative status during March 28, 2025 8:57am Supervision of high-risk March 28, 2025 8:57am Thyroid disease March 28, 2025 8:57a m Chronic hypertension affecting March 28, 2025 8:57am Elevated liver enzymes March 28, 2025 8: 57am Fatigue March 28, 2025 8:57a m Thyroid disease affecting March 28, 2025 8:57am Anemia in preg-unspec March 31, 2025 11: 01am Obesity affecting March 31 11:01am March 31, 2025 11:01 am Rh negative status during March 31, 2025 11:01am Supervision of high-risk March 31, 2025 11:01am Thyroid disease March 31, 2025 11:01 am Chronic hypertension affecting March 31, 2025 11:01am Elevated liver enzymes March 31, 2025 11 :01am Fatigue March 31, 2025 11:01 am Thyroid disease affecting March 31, 2025 11:01am Anemia in preg-unspec April 08, 2025 10 :28am Obesity affecting April 08 025 10:28am April 08, 2025 10:2 8am Rh negative status during April 08, 2025 10:28am Supervision of high-risk April 08, 2025 10:28am Thyroid disease April 08, 2025 10:2 8am Chronic hypertension affecting April 08, 2025 10:28am Elevated liver enzymes April 08, 2025 1 0:28am Fatigue April 08, 2025 10:2 8am Thyroid disease affecting April 08, 2025 10:28am Anemia in preg-unspec April 14, 2025 11 :35am Obesity affecting April 14 025 11:35am April 14, 2025 11:3 5am Rh negative status during April 14, 2025 11:35am Supervision of high-risk April 14, 2025 11:35am Thyroid disease April 14, 2025 11:3 5am Chronic hypertension affecting April 14, 2025 11:35am Elevated liver enzymes April 14, 2025 1 1:35am Fatigue April 14, 2025 11:3 5am Thyroid disease affecting April 14, 2025 11:35am Anemia in preg-unspec April 21, 2025 1: 07pm Obesity affecting April 21 025 1:07pm April 21, 2025 1:07 pm Rh negative status during April 21, 2025 1:07pm Supervision of high-risk April 21, 2025 1:07pm Thyroid disease April 21, 2025 1:07 pm Chronic hypertension affecting April 21, 2025 1:07pm Elevated liver enzymes April 21, 2025 1 :07pm Fatigue April 21, 2025 1:07 pm Thyroid disease affecting April 21, 2025 1:07pm Anemia in preg-unspec April 21, 2025 2: 00pm Obesity affecting April 21 025 2:00pm April 21, 2025 2:00 pm Rh negative status during April 21, 2025 2:00pm Supervision of high-risk April 21, 2025 2:00pm Thyroid disease April 21, 2025 2:00 pm Chronic hypertension affecting April 21, 2025 2:00pm Antepartum variable deceleration April 212024 2:00pm Elevated liver enzymes April 21, 2025 2 :00pm Fatigue April 21, 2025 2:00 pm Thyroid disease affecting April 21, 2025 2:00pm Anemia in preg-unspec April 28, 2025 1:0 5pm Obesity affecting April 28 1:05pm April 28, 2025 1:05p m Rh negative status during April 28, 2025 1:05pm Supervision of high-risk April 28, 2025 1:05pm Thyroid disease April 28, 2025 1:05p m Chronic hypertension affecting April 28, 2025 1:05pm Antepartum variable deceleration April 1:05pm Elevated liver enzymes April 28, 2025 1: 05pm Fatigue April 28, 2025 1:05p m Thyroid disease affecting April 28, 2025 1:05pm Anemia in preg-unspec May 05, 2025 12 :27pm Obesity affecting May 05, 2 025 12:27pm May 05, 2025 12:2 7pm Rh negative status during May 05, 2025 12:27pm Supervision of high-risk May 05, 2025 12:27pm Thyroid disease May 05, 2025 12:2 7pm Chronic hypertension affecting May 05, 2025 12:27pm Antepartum variable deceleration May [id number] 12:27pm Elevated liver enzymes May 05, 2025 1 2:27pm Fatigue May 05, 2025 12:2 7pm Thyroid disease affecting May 05, 2025 12:27pm Anemia in preg-unspec May 09, 2025 8: 05am Encounter for induction of labor May [id number] 8:05am Obesity affecting May 09 025 8:05am May 09, 2025 8:05 am Rh negative status during May 09, 2025 8:05am Supervision of high-risk May 09, 2025 8:05am Thyroid disease May 09, 2025 8:05 am Vaginal delivery May 09, 2025 8:05 am Chronic hypertension affecting May 09, 2025 8:05am Thyroid disease affecting May 09, 2025 8:05am Chief Complaint Admit Date 25 wk ob February 03, 2025 1:3 3pm 28wk ob/glucose February 24, 2025 1:00pm 30wk ob March 12, 2025 11:45 am GROWTH March 28, 2025 8:01a m NST per KW *growth US at 0800 March 28, 2025 8:57am 33wk NST ONLY March 31, 2025 11:01 am 34 wk ob/nst April 08, 2025 10:2 8am 35 wk NST ONLY April 14, 2025 11:3 5am 36 wk ob/nst April 21, 2025 1:07 pm BPP April 21, 2025 2:00 pm BPP April 21, 2025 4:05 pm 37 ob/nst April 28, 2025 1:05p m GROWTH April 29, 2025 1:07p m 38 wk ob/nst May 05, 2025 12:2 7pm INDUCTION May 09, 2025 8:05 am INDUCTION May 09, 2025 5:15 pm INDUCTION May 10, 2025 10:3 7am INDUCTION May 11, 2025 8:57 am 2wk bp check *per SM May 20, 2025 1:3 2pm Chief Complaint Admit Date 28wk ob/glucose February 24, 2025 1:00pm 30wk ob March 12, 2025 11:45 am GROWTH March 28, 2025 8:01a m NST per KW *growth US at 0800 March 28, 2025 8:57am 33wk NST ONLY March 31, 2025 11:01 am 34 wk ob/nst April 08, 2025 10:2 8am 35 wk NST ONLY April 14, 2025 11:3 5am 36 wk ob/nst April 21, 2025 1:07 pm BPP April 21, 2025 2:00 pm BPP April 21, 2025 4:05 pm 37 ob/nst April 28, 2025 1:05p m GROWTH April 29, 2025 1:07p m 38 wk ob/nst May 05, 2025 12:2 7pm INDUCTION May 09, 2025 8:05 am INDUCTION May 09, 2025 5:15 pm INDUCTION May 10, 2025 10:3 7am INDUCTION May 11, 2025 8:57 am 2wk bp check *per SM May 20, 2025 1:3 2pm visit (obstetrics) May 10:13am Reason for Visit Admit Date Thyroid disease February 24, 2025 1:00pm Anemia in preg-unspec February 24, 2025 1:00 pm Chronic hypertension affecting February 24, 2025 1:00pm Elevated liver enzymes February 24, 2025 1:0 0pm Fatigue February 24, 2025 1:00pm Obesity affecting February 24 1:00pm February 24, 2025 1:00pm Rh negative status during February 24, 2025 1:00pm Supervision of high-risk February 242024 1:00pm Thyroid disease affecting February 24, 2025 1:00pm Thyroid disease March 12, 2025 11:45 am Anemia in preg-unspec March 12, 2025 11: 45am Chronic hypertension affecting March 12, 2025 11:45am Elevated liver enzymes March 12, 2025 11 :45am Fatigue March 12, 2025 11:45 am Obesity affecting March 12 11:45am March 12, 2025 11:45 am Rh negative status during March 12, 2025 11:45am Supervision of high-risk February 212024 11:45am Thyroid disease affecting March 12, 2025 11:45am Thyroid disease March 28, 2025 8:57a m Anemia in preg-unspec March 28, 2025 8:5 7am Chronic hypertension affecting March 28, 2025 8:57am Elevated liver enzymes March 28, 2025 8: 57am Fatigue March 28, 2025 8:57a m Obesity affecting March 28 8:57am March 28, 2025 8:57a m Rh negative status during March 28, 2025 8:57am Supervision of high-risk March 28, 2025 8:57am Thyroid disease affecting March 28, 2025 8:57am Thyroid disease March 31, 2025 11:01 am Anemia in preg-unspec March 31, 2025 11: 01am Chronic hypertension affecting March 31, 2025 11:01am Elevated liver enzymes March 31, 2025 11 :01am Fatigue March 31, 2025 11:01 am Obesity affecting March 31 11:01am March 31, 2025 11:01 am Rh negative status during March 31, 2025 11:01am Supervision of high-risk March 31, 2025 11:01am Thyroid disease affecting March 31, 2025 11:01am Thyroid disease April 08, 2025 10:2 8am Anemia in preg-unspec April 08, 2025 10 :28am Chronic hypertension affecting April 08, 2025 10:28am Elevated liver enzymes April 08, 2025 1 0:28am Fatigue April 08, 2025 10:2 8am Obesity affecting April 08 025 10:28am April 08, 2025 10:2 8am Rh negative status during April 08, 2025 10:28am Supervision of high-risk April 08, 2025 10:28am Thyroid disease affecting April 08, 2025 10:28am Thyroid disease April 14, 2025 11:3 5am Anemia in preg-unspec April 14, 2025 11 :35am Chronic hypertension affecting April 14, 2025 11:35am Elevated liver enzymes April 14, 2025 1 1:35am Fatigue April 14, 2025 11:3 5am Obesity affecting April 14 2 025 11:35am April 14, 2025 11:3 5am Rh negative status during April 14, 2025 11:35am Supervision of high-risk April 14, 2025 11:35am Thyroid disease affecting April 14, 2025 11:35am Thyroid disease April 21, 2025 1:07 pm Anemia in preg-unspec April 21, 2025 1: 07pm Chronic hypertension affecting April 21, 2025 1:07pm Elevated liver enzymes April 21, 2025 1 :07pm Fatigue April 21, 2025 1:07 pm Obesity affecting April 21 2 025 1:07pm April 21, 2025 1:07 pm Rh negative status during April 21, 2025 1:07pm Supervision of high-risk April 21, 2025 1:07pm Thyroid disease affecting April 21, 2025 1:07pm Thyroid disease April 21, 2025 2:00 pm Anemia in preg-unspec April 21, 2025 2: 00pm Antepartum variable deceleration April 212024 2:00pm Chronic hypertension affecting April 21, 2025 2:00pm Elevated liver enzymes April 21, 2025 2 :00pm Fatigue April 21, 2025 2:00 pm Obesity affecting April 21 2 025 2:00pm April 21, 2025 2:00 pm Rh negative status during April 21, 2025 2:00pm Supervision of high-risk April 21, 2025 2:00pm Thyroid disease affecting April 21, 2025 2:00pm Thyroid disease April 28, 2025 1:05p m Anemia in preg-unspec April 28, 2025 1:0 5pm Antepartum variable deceleration April 1:05pm Chronic hypertension affecting April 28, 2025 1:05pm Elevated liver enzymes April 28, 2025 1: 05pm Fatigue April 28, 2025 1:05p m Obesity affecting April 28 1:05pm April 28, 2025 1:05p m Rh negative status during April 28, 2025 1:05pm Supervision of high-risk April 28, 2025 1:05pm Thyroid disease affecting April 28, 2025 1:05pm Thyroid disease May 05, 2025 12:2 7pm Anemia in preg-unspec May 05, 2025 12 :27pm Antepartum variable deceleration May [id number] 12:27pm Chronic hypertension affecting May 05, 2025 12:27pm Elevated liver enzymes May 05, 2025 1 2:27pm Fatigue May 05, 2025 12:2 7pm Obesity affecting May 05 025 12:27pm May 05, 2025 12:2 7pm Rh negative status during May 05, 2025 12:27pm Supervision of high-risk May 05, 2025 12:27pm Thyroid disease affecting May 05, 2025 12:27pm Thyroid disease May 09, 2025 8:05 am Anemia in preg-unspec May 09, 2025 8: 05am Chronic hypertension affecting May 09, 2025 8:05am Encounter for induction of labor May [id number] 8:05am Obesity affecting May 09 025 8:05am May 09, 2025 8:05 am Rh negative status during May 09, 2025 8:05am Supervision of high-risk May 09, 2025 8:05am Thyroid disease affecting May 09, 2025 8:05am Vaginal delivery May 09, 2025 8:05 am Routine Follow-Up May 10:13am Chief Complaint Admit Date GROWTH March 28, 2025 8:01a m NST per KW *growth US at 0800 March 28, 2025 8:57am 33wk NST ONLY March 31, 2025 11:01 am 34 wk ob/nst April 08, 2025 10:2 8am 35 wk NST ONLY April 14, 2025 11:3 5am 36 wk ob/nst April 21, 2025 1:07 pm BPP April 21, 2025 2:00 pm BPP April 21, 2025 4:05 pm 37 ob/nst April 28, 2025 1:05p m GROWTH April 29, 2025 1:07p m 38 wk ob/nst May 05, 2025 12:2 7pm INDUCTION May 09, 2025 8:05 am INDUCTION May 09, 2025 5:15 pm INDUCTION May 10, 2025 10:3 7am INDUCTION May 11, 2025 8:57 am 2wk bp check *per SM May 20, 2025 1:3 2pm visit (obstetrics) May 10:13am Liletta Insertion July 17, 2025 8:54am Reason for Visit Admit Date Thyroid disease March 28, 2025 8:57a m Anemia in preg-unspec March 28, 2025 8:5 7am Chronic hypertension affecting March 28, 2025 8:57am Elevated liver enzymes March 28, 2025 8: 57am Fatigue March 28, 2025 8:57a m Obesity affecting March 28 8:57am March 28, 2025 8:57a m Rh negative status during March 28, 2025 8:57am Supervision of high-risk March 28, 2025 8:57am Thyroid disease affecting March 28, 2025 8:57am Thyroid disease March 31, 2025 11:01 am Anemia in preg-unspec March 31, 2025 11: 01am Chronic hypertension affecting March 31, 2025 11:01am Elevated liver enzymes March 31, 2025 11 :01am Fatigue March 31, 2025 11:01 am Obesity affecting March 31 11:01am March 31, 2025 11:01 am Rh negative status during March 31, 2025 11:01am Supervision of high-risk March 31, 2025 11:01am Thyroid disease affecting March 31, 2025 11:01am Thyroid disease April 08, 2025 10:2 8am Anemia in preg-unspec April 08, 2025 10 :28am Chronic hypertension affecting April 08, 2025 10:28am Elevated liver enzymes April 08, 2025 1 0:28am Fatigue April 08, 2025 10:2 8am Obesity affecting Ciarra 17th, 2 025 10:28am April 08, 2025 10:2 8am Rh negative status during April 08, 2025 10:28am Supervision of high-risk April 08, 2025 10:28am Thyroid disease affecting April 08, 2025 10:28am Thyroid disease April 14, 2025 11:3 5am Anemia in preg-unspec April 14, 2025 11 :35am Chronic hypertension affecting April 14, 2025 11:35am Elevated liver enzymes April 14, 2025 1 1:35am Fatigue April 14, 2025 11:3 5am Obesity affecting April 14 025 11:35am April 14, 2025 11:3 5am Rh negative status during April 14, 2025 11:35am Supervision of high-risk April 14, 2025 11:35am Thyroid disease affecting April 14, 2025 11:35am Thyroid disease April 21, 2025 1:07 pm Anemia in preg-unspec April 21, 2025 1: 07pm Chronic hypertension affecting April 21, 2025 1:07pm Elevated liver enzymes April 21, 2025 1 :07pm Fatigue April 21, 2025 1:07 pm Obesity affecting April 21 025 1:07pm April 21, 2025 1:07 pm Rh negative status during April 21, 2025 1:07pm Supervision of high-risk April 21, 2025 1:07pm Thyroid disease affecting April 21, 2025 1:07pm Thyroid disease April 21, 2025 2:00 pm Anemia in preg-unspec April 21, 2025 2: 00pm Antepartum variable deceleration April 212024 2:00pm Chronic hypertension affecting April 21, 2025 2:00pm Elevated liver enzymes April 21, 2025 2 :00pm Fatigue April 21, 2025 2:00 pm Obesity affecting April 21 025 2:00pm April 21, 2025 2:00 pm Rh negative status during April 21, 2025 2:00pm Supervision of high-risk April 21, 2025 2:00pm Thyroid disease affecting April 21, 2025 2:00pm Thyroid disease April 28, 2025 1:05p m Anemia in preg-unspec April 28, 2025 1:0 5pm Antepartum variable deceleration April 1:05pm Chronic hypertension affecting April 28, 2025 1:05pm Elevated liver enzymes April 28, 2025 1: 05pm Fatigue April 28, 2025 1:05p m Obesity affecting April 28 1:05pm April 28, 2025 1:05p m Rh negative status during April 28, 2025 1:05pm Supervision of high-risk April 28, 2025 1:05pm Thyroid disease affecting April 28, 2025 1:05pm Thyroid disease May 05, 2025 12:2 7pm Anemia in preg-unspec May 05, 2025 12 :27pm Antepartum variable deceleration May 052024 12:27pm Chronic hypertension affecting May 05, 2025 12:27pm Elevated liver enzymes May 05, 2025 1 2:27pm Fatigue May 05, 2025 12:2 7pm Obesity affecting May 05 12:27pm May 05, 2025 12:2 7pm Rh negative status during May 05, 2025 12:27pm Supervision of high-risk May 05, 2025 12:27pm Thyroid disease affecting May 05, 2025 12:27pm Thyroid disease May 09, 2025 8:05 am Anemia in preg-unspec May 09, 2025 8: 05am Chronic hypertension affecting May 09, 2025 8:05am Encounter for induction of labor May 092024 8:05am Obesity affecting May 09, 025 8:05am May 09, 2025 8:05 am Rh negative status during May 09, 2025 8:05am Supervision of high-risk May 09, 2025 8:05am Thyroid disease affecting May 09, 2025 8:05am Vaginal delivery May 09, 2025 8:05 am Routine Follow-Up May 10:13am Contraceptive management July 17, 2025 8:54am Additional Source Comments INFORMATION SOURCE (unrecogn ized section and content) DATE CREATED AUTHOR 12/03/2019 [facility] DATE CREATED AUTHOR AUTHOR'S ORGANIZ ATION 08/13/2020 [facility] DATE CREATED AUTHOR AUTHOR'S ORGANIZ ATION 07/29/2022 [facility] ([place]) DATE CREATED AUTHOR AUTHOR'S ORGANIZ ATION [facility] DATE CREATED AUTHOR AUTHOR'S ORGANIZ ATION 04/14/2025 [facility] DATE CREATED AUTHOR AUTHOR'S ORGANIZ ATION 08/30/2025 [facility] Goals (unrecognized section and content) Goals may be documented in a n alternate sectionGoals may be documented in an alternate sectionGoals may be documented in an alternate sectionGoals may be documented in an alternate sectionGoals may be documented in an alternate sectionGoals may be documented in an alternate sectionGoals may be documented in an alternate sectionGoals may be documented in an alternate sectionGoals may be documented in an alternate sectionGoals may be documented in an alternate sectionGoals may be documented in an alternate sectionGoals may be documented in an alternate sectionGoals may be documented in an alternate sectionGoals may be documented in an alternate sectionGoals may be documented in an alternate sectionGoals may be documented in an alternate sectionGoals may be documented in an alternate sectionGoals may be documented in an alternate section Care Teams (unrecognized sec tion and content) Team Status: Active Member Role Status Dates Rachel Bryant NP-C Primary Care Provider Active Team Status: Inactive Member Role Status Dates Micheline Schaefer NP, OR NURSE MANAGER-C Primary Care Provider Active Start: December 12, 2024 End: December 12, 2024 Micheline Schaefer NP, OR NURSE MANAGER-C Referring Provider Active Start: December 12, 2024 End: December 12, 2024 Dr. Abby Carreon MD Attending Provider Active Start: December 12, 2024 End: December 12, 2024 Team Status: Inactive Member Role Status Dates Micheline Schaefer NP, OR NURSE MANAGER-C Primary Care Provider Active Start: December 12, 2024 End: December 12, 2024 Dr. Abby Carreon MD Attending Provider Active Start: December 12, 2024 End: December 12, 2024 Dr. Abby Carreon MD Referring Provider Active Start: December 12, 2024 End: December 12, 2024 Team Status: Inactive Member Role Status Dates Micheline Schaefer NP, OR NURSE MANAGER-C Primary Care Provider Active Start: December 13, 2024 End: December 13, 2024 Dr. Abby Carreon MD Attending Provider Active Start: December 13, 2024 End: December 13, 2024 Dr. Abby Carreon MD Referring Provider Active Start: December 13, 2024 End: December 13, 2024 Team Status: Inactive Member Role Status Dates Dr. Abby Carreon MD Attending Provider Active Start: December 14, 2024 End: December 14, 2024 Dr. Abby Carreon MD Referring Provider Active Start: December 14, 2024 End: December 14, 2024 Rachel Bryant OR NURSE MANAGER-C Primary Care Provider Active Start: December 14, 2024 End: December 14, 2024 Team Status: Inactive Member Role Status Dates Rachel Bryant NP-C Primary Care Provider Active Start: December 19, 2024 End: December 19, 2024 Dr. Abby Carreon MD Attending Provider Active Start: December 19, 2024 End: December 19, 2024 Dr. Abby Carreon MD Referring Provider Active Start: December 19, 2024 End: December 19, 2024 Team Status: Inactive Member Role Status Dates Micheline Schaefer NP, OR NURSE MANAGER-C Referring Provider Active Start: January 09, 2025 End: January 09, 2025 Dr. Tiffanie Lepe DO Attending Provider Activ e Start: January 09, 2025 End: January 09, 2025 Rachel Bryant OR NURSE MANAGER-C Primary Care Provider Active Start: January 09, 2025 End: January 09, 2025 Team Status: Inactive Member Role Status Dates Rachel Bryant NP-C Primary Care Provider Active Start: January 09, 2025 End: January 09, 2025 Dr. Tiffanie Lepe DO Attending Provider Activ e Start: January 09, 2025 End: January 09, 2025 Dr. Tiffanie Lepe DO Referring Provider Activ e Start: January 09, 2025 End: January 09, 2025 Team Status: Inactive Member Role Status Dates Micheline Schaefer NP, OR NURSE MANAGER-C Referring Provider Active Start: February 03, 2025 End: February 03, 2025 Joyce Bolanos CNM Attending Provider Active S tart: February 03, 2025 End: February 03, 2025 Rachel Bryant NP-C Primary Care Provider Active Start: February 03, 2025 End: February 03, 2025 Team Status: Inactive Member Role Status Dates Rachel Bryant OR NURSE MANAGER-C Primary Care Provider Active Start: February 24, 2025 End: February 24, 2025 Rachel Bryant OR NURSE MANAGER-C Referring Provider Active Start: February 24, 2025 End: February 24, 2025 Antony Correa NP, OR NURSE MANAGER-C Attending Provider Active Start: February 24, 2025 End: February 24, 2025 Team Status: Inactive Member Role Status Dates Rachel Bryant OR NURSE MANAGER-C Primary Care Provider Active Start: February 24, 2025 End: February 24, 2025 Joyce Bolanos CNM Attending Provider Active S tart: February 24, 2025 End: February 24, 2025 Team Status: Inactive Member Role Status Dates Rachel Bryant OR NURSE MANAGER-C Primary Care Provider Active Start: March 12, 2025 End: March 12, 2025 Rachel Bryant OR NURSE MANAGER-C Referring Provider Active Start: March 12, 2025 End: March 12, 2025 Dr. Tiffanie Lepe , Attending Provider Activ e Start: March 12, 2025 End: March 12, 2025 Team Status: Active Member Role Status Dates Rachel Bryant OR NURSE MANAGER-C Primary Care Provider Active Start: March 28, 2025 Antony Correa NP, OR NURSE MANAGER-C Attending Provider Active Start: March 28, 2025 Antony Correa NP, OR NURSE MANAGER-C Referring Provider Active Start: March 28, 2025 Team Status: Inactive Member Role Status Dates Rachel Bryant OR NURSE MANAGER-C Primary Care Provider Active Start: March 28, 2025 End: March 28, 2025 Rachel Bryant OR NURSE MANAGER-C Referring Provider Active Start: March 28, 2025 End: March 28, 2025 Joyce Bolanos CNM Attending Provider Active S tart: March 28, 2025 End: March 28, 2025 Team Status: Active Member Role Status Dates Micheline Schaefer NP, OR NURSE MANAGER-C Primary Care Provider Active Start: November 13, 2024 Health Risk Assessment Attending Provider Active Start: November 13, 2024 Team Status: Inactive Member Role Status Dates Micheline Schaefer NP, OR NURSE MANAGER-C Primary Care Provider Active Start: November 13, 2024 End: November 13, 2024 Micheline Schaefer OR NURSE MANAGER, OR NURSE MANAGER-C Referring Provider Active Start: November 13, 2024 End: November 13, 2024 Antony [place] OR NURSE MANAGER, OR NURSE MANAGER-C Attending Provider Active Start: November 13, 2024 End: November 13, 2024 Team Status: Inactive Member Role Status Dates Micheline Schaefer OR NURSE MANAGER, OR NURSE MANAGER-C Primary Care Provider Active Start: November 13, 2024 End: November 13, 2024 Antony Correa OR NURSE MANAGER, OR NURSE MANAGER-C Attending Provider Active Start: November 13, 2024 End: November 13, 2024 Antony Correa OR NURSE MANAGER, OR NURSE MANAGER-C Referring Provider Active Start: November 13, 2024 End: November 13, 2024 Team Status: Inactive Member Role Status Dates Micheline Schaefer NP, OR NURSE MANAGER-C Primary Care Provider Active Start: November 19, 2024 End: November 19, 2024 Micheline Schaefer OR NURSE MANAGER, OR NURSE MANAGER-C Referring Provider Active Start: November 19, 2024 End: November 19, 2024 Antony Correa OR NURSE MANAGER, OR NURSE MANAGER-C Attending Provider Active Start: November 19, 2024 End: November 19, 2024 Team Status: Inactive Member Role Status Dates Micheline Schaefer NP, OR NURSE MANAGER-C Primary Care Provider Active Start: October 01, 2024 End: October 01, 2024 Joyce Bolanos CNM Attending Provider Active S tart: October 01, 2024 End: October 01, 2024 Joyce Bolanos CNM Referring Provider Active S tart: October 01, 2024 End: October 01, 2024 Team Status: Inactive Member Role Status Dates Micheline Schaefer NP, OR NURSE MANAGER-C Primary Care Provider Active Start: October 11, 2024 End: October 11, 2024 Micheline Schaefer NP, OR NURSE MANAGER-C Referring Provider Active Start: October 11, 2024 End: October 11, 2024 Sahara Frances CNM Attending Provider Active Start: October 11, 2024 End: October 11, 2024 Team Status: Inactive Member Role Status Dates Micheline Schaefer NP, OR NURSE MANAGER-C Primary Care Provider Active Start: October 11, 2024 End: October 11, 2024 Sahara Frances CNM Attending Provider Active Start: October 11, 2024 End: October 11, 2024 Sahara Frances CNM Referring Provider Active Start: October 11, 2024 End: October 11, 2024 Team Status: Inactive Member Role Status Dates Micheline Schaefer NP, OR NURSE MANAGER-C Primary Care Provider Active Start: October 25, 2024 End: October 25, 2024 Micheline Schaefer OR NURSE MANAGER, OR NURSE MANAGER-C Referring Provider Active Start: October 25, 2024 End: October 25, 2024 Dr. Abby Carreon MD Attending Provider Active Start: October 25, 2024 End: October 25, 2024 Team Status: Inactive Member Role Status Dates Micheline Schaefer OR NURSE MANAGER, OR NURSE MANAGER-C Primary Care Provider Active Start: October 25, 2024 End: October 25, 2024 Joyce Bolanos CNM Attending Provider Active S tart: October 25, 2024 End: October 25, 2024 Joyce Bolanos CNM Referring Provider Active S tart: October 25, 2024 End: October 25, 2024 Team Status: Inactive Member Role Status Dates Micheline Schaefer OR NURSE MANAGER, OR NURSE MANAGER-C Primary Care Provider Active Start: November 06, 2024 End: November 06, 2024 Micheline Schaefer OR NURSE MANAGER, OR NURSE MANAGER-C Referring Provider Active Start: November 06, 2024 End: November 06, 2024 Dr. Tiffanie Lepe DO Attending Provider Activ e Start: November 06, 2024 End: November 06, 2024 Team Status: Inactive Member Role Status Dates Rachel Bryant OR NURSE MANAGER-C Primary Care Provider Active Start: March 31, 2025 End: March 31, 2025 Rachel Bryant OR NURSE MANAGER-C Referring Provider Active Start: March 31, 2025 End: March 31, 2025 Antony Correa OR NURSE MANAGER, OR NURSE MANAGER-C Attending Provider Active Start: March 31, 2025 End: March 31, 2025 Team Status: Inactive Member Role Status Dates Rachel Bryant OR NURSE MANAGER-C Primary Care Provider Active Start: March 28, 2025 End: March 28, 2025 Antony Correa OR NURSE MANAGER, OR NURSE MANAGER-C Attending Provider Active Start: March 28, 2025 End: March 28, 2025 Antony Correa OR NURSE MANAGER, OR NURSE MANAGER-C Referring Provider Active Start: March 28, 2025 End: March 28, 2025 Team Status: Inactive Member Role Status Dates Rachel Bryant OR NURSE MANAGER-C Primary Care Provider Active Start: April 08, 2025 End: April 08, 2025 Rachel Bryant OR NURSE MANAGER-C Referring Provider Active Start: April 08, 2025 End: April 08, 2025 Dr. Tiffanie Lepe DO Attending Provider Activ e Start: April 08, 2025 End: April 08, 2025 Team Status: Inactive Member Role Status Dates Rachel Bryant , OR NURSE MANAGER-C Primary Care Provider Active Start: April 08, 2025 End: April 08, 2025 Dr. Tiffanie Lepe DO Attending Provider Activ e Start: April 08, 2025 End: April 08, 2025 Dr. Tiffanie Lepe DO Referring Provider Activ e Start: April 08, 2025 End: April 08, 2025 Team Status: Inactive Member Role Status Dates Rachel Bryant OR NURSE MANAGER-C Primary Care Provider Active Start: April 14, 2025 End: April 14, 2025 Rachel Bryant OR NURSE MANAGER-C Referring Provider Active Start: April 14, 2025 End: April 14, 2025 Dr. Tiffanie Lepe DO Attending Provider Activ e Start: April 14, 2025 End: April 14, 2025 Team Status: Active Member Role/Relationship Status Dates Rachel Bryant , OR NURSE MANAGER-C Primary Care Provider Active Team Status: Inactive Member Role/Relationship Status Dates Micheline Schaefer NP, OR NURSE MANAGER-C Referring Provider Active Start: January 09, 2025 End: January 09, 2025 Dr. Tiffanie Lepe DO Attending Provider Activ e Start: January 09, 2025 End: January 09, 2025 Rachel Bryant OR NURSE MANAGER-C Primary Care Provider Active Start: January 09, 2025 End: January 09, 2025 Team Status: Inactive Member Role/Relationship Status Dates Rachel Bryant , OR NURSE MANAGER-C Primary Care Provider Active Start: January 09, 2025 End: January 09, 2025 Dr. Tiffanie Lepe DO Attending Provider Activ e Start: January 09, 2025 End: January 09, 2025 Dr. Tiffanie Lepe DO Referring Provider Activ e Start: January 09, 2025 End: January 09, 2025 Team Status: Inactive Member Role/Relationship Status Dates Micheline Schaefer NP, OR NURSE MANAGER-C Referring Provider Active Start: February 03, 2025 End: February 03, 2025 Joyce Bolanos CNM Attending Provider Active S tart: February 03, 2025 End: February 03, 2025 Rachel Bryant , OR NURSE MANAGER-C Primary Care Provider Active Start: February 03, 2025 End: February 03, 2025 Team Status: Inactive Member Role/Relationship Status Dates Rachel Bryant OR NURSE MANAGER-C Primary Care Provider Active Start: February 24, 2025 End: February 24, 2025 Rachel Bryant OR NURSE MANAGER-C Referring Provider Active Start: February 24, 2025 End: February 24, 2025 Antony Correa OR NURSE MANAGER, OR NURSE MANAGER-C Attending Provider Active Start: February 24, 2025 End: February 24, 2025 Team Status: Inactive Member Role/Relationship Status Dates Rachel Bryant OR NURSE MANAGER-C Primary Care Provider Active Start: February 24, 2025 End: February 24, 2025 Joyce Bolanos CNM Attending Provider Active S tart: February 24, 2025 End: February 24, 2025 Team Status: Inactive Member Role/Relationship Status Dates Rachel Bryant OR NURSE MANAGER-C Primary Care Provider Active Start: March 12, 2025 End: March 12, 2025 Rachel Bryant OR NURSE MANAGER-C Referring Provider Active Start: March 12, 2025 End: March 12, 2025 Dr. Tiffanie Lepe DO Attending Provider Activ e Start: March 12, 2025 End: March 12, 2025 Team Status: Inactive Member Role/Relationship Status Dates Rachel Bryant OR NURSE MANAGER-C Primary Care Provider Active Start: March 28, 2025 End: March 28, 2025 Antony Correa OR NURSE MANAGER, OR NURSE MANAGER-C Attending Provider Active Start: March 28, 2025 End: March 28, 2025 Antony Correa OR NURSE MANAGER, OR NURSE MANAGER-C Referring Provider Active Start: March 28, 2025 End: March 28, 2025 Team Status: Inactive Member Role/Relationship Status Dates Rachel Bryant OR NURSE MANAGER-C Primary Care Provider Active Start: March 28, 2025 End: March 28, 2025 Rachel Bryant OR NURSE MANAGER-C Referring Provider Active Start: March 28, 2025 End: March 28, 2025 Joyce Bolanos CNM Attending Provider Active S tart: March 28, 2025 End: March 28, 2025 Team Status: Inactive Member Role/Relationship Status Dates Rachel Bryant OR NURSE MANAGER-C Primary Care Provider Active Start: March 31, 2025 End: March 31, 2025 Rachel Bryant OR NURSE MANAGER-C Referring Provider Active Start: March 31, 2025 End: March 31, 2025 Antony Correa NP, OR NURSE MANAGER-C Attending Provider Active Start: March 31, 2025 End: March 31, 2025 Team Status: Inactive Member Role/Relationship Status Dates Rachel Bryant OR NURSE MANAGER-C Primary Care Provider Active Start: April 08, 2025 End: April 08, 2025 Rachel Bryant OR NURSE MANAGER-C Referring Provider Active Start: April 08, 2025 End: April 08, 2025 Dr. Tiffanie Lepe DO Attending Provider Activ e Start: April 08, 2025 End: April 08, 2025 Team Status: Inactive Member Role/Relationship Status Dates Rachel Bryant OR NURSE MANAGER-C Primary Care Provider Active Start: April 08, 2025 End: April 08, 2025 Dr. Tiffanie Lepe DO Attending Provider Activ e Start: April 08, 2025 End: April 08, 2025 Dr. Tiffanie Lepe DO Referring Provider Activ e Start: April 08, 2025 End: April 08, 2025 Team Status: Inactive Member Role/Relationship Status Dates Rachel Bryant OR NURSE MANAGER-C Primary Care Provider Active Start: April 14, 2025 End: April 14, 2025 Rachel Bryant OR NURSE MANAGER-C Referring Provider Active Start: April 14, 2025 End: April 14, 2025 Dr. Tiffanie Lepe DO Attending Provider Activ e Start: April 14, 2025 End: April 14, 2025 Team Status: Inactive Member Role/Relationship Status Dates Rachel Bryant OR NURSE MANAGER-C Primary Care Provider Active Start: April 21, 2025 End: April 21, 2025 Rachel Bryant OR NURSE MANAGER-C Referring Provider Active Start: April 21, 2025 End: April 21, 2025 Joyce Bolanos CNM Attending Provider Active S tart: April 21, 2025 End: April 21, 2025 Team Status: Inactive Member Role/Relationship Status Dates Rachel Bryant OR NURSE MANAGER-C Primary Care Provider Active Start: April 21, 2025 End: April 21, 2025 Joyce Bolanos CNM Attending Provider Active S tart: April 21, 2025 End: April 21, 2025 Joyce Bolanos CNM Referring Provider Active S tart: April 21, 2025 End: April 21, 2025 Team Status: Active Member Role/Relationship Status Dates Rachel Bryant OR NURSE MANAGER-C Primary Care Provider Active Start: April 21, 2025 Joyce Bolanos CNM Attending Provider Active S tart: April 21, 2025 Joyce Bolanos CNM Referring Provider Active S tart: April 21, 2025 Joyce Bolanos CNM Other Provider Active Start : April 21, 2025 Team Status: Inactive Member Role/Relationship Status Dates Rachel Bryant OR NURSE MANAGER-C Primary Care Provider Active Start: April 28, 2025 End: April 28, 2025 Rachel Bryant OR NURSE MANAGER-C Referring Provider Active Start: April 28, 2025 End: April 28, 2025 Joyce Bolanos CNM Attending Provider Active S tart: April 28, 2025 End: April 28, 2025 Team Status: Inactive Member Role/Relationship Status Dates Rachel Bryant OR NURSE MANAGER-C Primary Care Provider Active Start: April 28, 2025 End: April 28, 2025 Joyce Bolanos CNM Attending Provider Active S tart: April 28, 2025 End: April 28, 2025 Joyce Bolanos CNM Referring Provider Active S tart: April 28, 2025 End: April 28, 2025 Team Status: Active Member Role/Relationship Status Dates Rachel Bryant OR NURSE MANAGER-C Primary Care Provider Active Start: April 29, 2025 Antony Correa OR NURSE MANAGER, OR NURSE MANAGER-C Attending Provider Active Start: April 29, 2025 Antony Correa OR NURSE MANAGER, OR NURSE MANAGER-C Referring Provider Active Start: April 29, 2025 Team Status: Inactive Member Role/Relationship Status Dates Rachel Bryant , OR NURSE MANAGER-C Primary Care Provider Active Start: April 29, 2025 End: April 29, 2025 Antony Correa OR NURSE MANAGER, OR NURSE MANAGER-C Attending Provider Active Start: April 29, 2025 End: April 29, 2025 Antony Correa OR NURSE MANAGER, OR NURSE MANAGER-C Referring Provider Active Start: April 29, 2025 End: April 29, 2025 Team Status: Active Member Role/Relationship Status Dates Rachel Bryant OR NURSE MANAGER-C Primary Care Provider Active Start: May 05, 2025 Rachel Bryant OR NURSE MANAGER-C Referring Provider Active Start: May 05, 2025 Dr. Abby Carreon MD Attending Provider Active Start: May 05, 2025 Team Status: Inactive Member Role/Relationship Status Dates Rachel Bryant OR NURSE MANAGER-C Primary Care Provider Active Start: May 05, 2025 End: May 05, 2025 Rachel Bryant , OR NURSE MANAGER-C Referring Provider Active Start: May 05, 2025 End: May 05, 2025 Dr. Tiffanie Lepe , Attending Provider Activ e Start: May 05, 2025 End: May 05, 2025 Team Status: Inactive Member Role/Relationship Status Dates Rachel Bryant , OR NURSE MANAGER-C Primary Care Provider Active Start: May 05, 2025 End: May 05, 2025 Dr. Tiffanie Lepe , Attending Provider Activ e Start: May 05, 2025 End: May 05, 2025 Team Status: Inactive Member Role/Relationship Status Dates Micheline Schaefer NP, OR NURSE MANAGER-C Referring Provider Active Start: February 03, 2025 End: February 03, 2025 Joyce Bolanos CNM Attending Provider Active S tart: February 03, 2025 End: February 03, 2025 Rachel Bryant , OR NURSE MANAGER-C Primary Care Provider Active Start: February 03, 2025 End: February 03, 2025 Team Status: Inactive Member Role/Relationship Status Dates Rachel Bryant , OR NURSE MANAGER-C Primary Care Provider Active Start: February 24, 2025 End: February 24, 2025 Rachel Bryant , OR NURSE MANAGER-C Referring Provider Active Start: February 24, 2025 End: February 24, 2025 Antony Correa NP, OR NURSE MANAGER-C Attending Provider Active Start: February 24, 2025 End: February 24, 2025 Team Status: Inactive Member Role/Relationship Status Dates Rachel Bryant , OR NURSE MANAGER-C Primary Care Provider Active Start: February 24, 2025 End: February 24, 2025 Joyce Bolanos CNM Attending Provider Active S tart: February 24, 2025 End: February 24, 2025 Team Status: Inactive Member Role/Relationship Status Dates Rachel Bryant , OR NURSE MANAGER-C Primary Care Provider Active Start: March 12, 2025 End: March 12, 2025 Rachel Bryant , OR NURSE MANAGER-C Referring Provider Active Start: March 12, 2025 End: March 12, 2025 Dr. Tiffanie Lepe DO Attending Provider Activ e Start: March 12, 2025 End: March 12, 2025 Team Status: Inactive Member Role/Relationship Status Dates Rachel Bryant , OR NURSE MANAGER-C Primary Care Provider Active Start: March 28, 2025 End: March 28, 2025 Antony Correa OR NURSE MANAGER, OR NURSE MANAGER-C Attending Provider Active Start: March 28, 2025 End: March 28, 2025 Antony Correa OR NURSE MANAGER, OR NURSE MANAGER-C Referring Provider Active Start: March 28, 2025 End: March 28, 2025 Team Status: Inactive Member Role/Relationship Status Dates Rachel Bryant OR NURSE MANAGER-C Primary Care Provider Active Start: March 28, 2025 End: March 28, 2025 Rachel Bryant OR NURSE MANAGER-C Referring Provider Active Start: March 28, 2025 End: March 28, 2025 Joyce Bolanos CNM Attending Provider Active S tart: March 28, 2025 End: March 28, 2025 Team Status: Inactive Member Role/Relationship Status Dates Rachel Bryant OR NURSE MANAGER-C Primary Care Provider Active Start: March 31, 2025 End: March 31, 2025 Rachel Bryant OR NURSE MANAGER-C Referring Provider Active Start: March 31, 2025 End: March 31, 2025 Antony Correa OR NURSE MANAGER, OR NURSE MANAGER-C Attending Provider Active Start: March 31, 2025 End: March 31, 2025 Team Status: Inactive Member Role/Relationship Status Dates Rachel Bryant OR NURSE MANAGER-C Primary Care Provider Active Start: April 08, 2025 End: April 08, 2025 Rachel Bryant OR NURSE MANAGER-C Referring Provider Active Start: April 08, 2025 End: April 08, 2025 Dr. Tiffanie Lepe DO Attending Provider Activ e Start: April 08, 2025 End: April 08, 2025 Team Status: Inactive Member Role/Relationship Status Dates Rachel Bryant OR NURSE MANAGER-C Primary Care Provider Active Start: April 08, 2025 End: April 08, 2025 Dr. Tiffanie Lepe DO Attending Provider Activ e Start: April 08, 2025 End: April 08, 2025 Dr. Tiffanie Lepe DO Referring Provider Activ e Start: April 08, 2025 End: April 08, 2025 Team Status: Inactive Member Role/Relationship Status Dates Rachel Bryant OR NURSE MANAGER-C Primary Care Provider Active Start: April 14, 2025 End: April 14, 2025 Rachel Bryant OR NURSE MANAGER-C Referring Provider Active Start: April 14, 2025 End: April 14, 2025 Dr. Tiffanie Lepe , DO Attending Provider Activ e Start: April 14, 2025 End: April 14, 2025 Team Status: Inactive Member Role/Relationship Status Dates Rachel Bryant OR NURSE MANAGER-C Primary Care Provider Active Start: April 21, 2025 End: April 21, 2025 Rachel Bryant OR NURSE MANAGER-C Referring Provider Active Start: April 21, 2025 End: April 21, 2025 Joyce Bolanos CNM Attending Provider Active S tart: April 21, 2025 End: April 21, 2025 Team Status: Inactive Member Role/Relationship Status Dates Rachel Bryant OR NURSE MANAGER-C Primary Care Provider Active Start: April 21, 2025 End: April 21, 2025 Joyce Bolanos CNM Attending Provider Active S tart: April 21, 2025 End: April 21, 2025 Joyce Bolanos CNM Referring Provider Active S tart: April 21, 2025 End: April 21, 2025 Team Status: Active Member Role/Relationship Status Dates Rachel Bryant OR NURSE MANAGER-C Primary Care Provider Active Start: April 21, 2025 Joyce Bolanos CNM Attending Provider Active S tart: April 21, 2025 Joyce Bolanos CNM Referring Provider Active S tart: April 21, 2025 Joyce Bolanos CNM Other Provider Active Start : April 21, 2025 Team Status: Inactive Member Role/Relationship Status Dates Rachel Bryant OR NURSE MANAGER-C Primary Care Provider Active Start: April 28, 2025 End: April 28, 2025 Rachel Bryant OR NURSE MANAGER-C Referring Provider Active Start: April 28, 2025 End: April 28, 2025 Joyce Bolanos CNM Attending Provider Active S tart: April 28, 2025 End: April 28, 2025 Team Status: Inactive Member Role/Relationship Status Dates Rachel Bryant OR NURSE MANAGER-C Primary Care Provider Active Start: April 28, 2025 End: April 28, 2025 Joyce Bolanos CNM Attending Provider Active S tart: April 28, 2025 End: April 28, 2025 Joyce Bolanos CNM Referring Provider Active S tart: April 28, 2025 End: April 28, 2025 Team Status: Inactive Member Role/Relationship Status Dates Rachel Bryant OR NURSE MANAGER-C Primary Care Provider Active Start: April 29, 2025 End: April 29, 2025 Antony [place] OR NURSE MANAGER, OR NURSE MANAGER-C Attending Provider Active Start: April 29, 2025 End: April 29, 2025 Antony Correa OR NURSE MANAGER, OR NURSE MANAGER-C Referring Provider Active Start: April 29, 2025 End: April 29, 2025 Team Status: Inactive Member Role/Relationship Status Dates Rachel Bryant OR NURSE MANAGER-C Primary Care Provider Active Start: May 05, 2025 End: May 05, 2025 Rachel Bryant OR NURSE MANAGER-C Referring Provider Active Start: May 05, 2025 End: May 05, 2025 Dr. Tiffanie Lepe DO Attending Provider Activ e Start: May 05, 2025 End: May 05, 2025 Team Status: Inactive Member Role/Relationship Status Dates Rachel Bryant OR NURSE MANAGER-C Primary Care Provider Active Start: May 05, 2025 End: May 05, 2025 Dr. Tiffanie Lepe DO Attending Provider Activ e Start: May 05, 2025 End: May 05, 2025 Team Status: Inactive Member Role/Relationship Status Dates Rachel Bryant OR NURSE MANAGER-C Primary Care Provider Active Start: May 09, 2025 End: May 11, 2025 Dr. Abby Carreon MD Admit Provider Active Start: May 09, 2025 End: May 11, 2025 Dr. Abby Carreon MD Attending Provider Active Start: May 09, 2025 End: May 11, 2025 Team Status: Active Member Role/Relationship Status Dates Rachel Bryant OR NURSE MANAGER-C Primary Care Provider Active Start: May 09, 2025 Dr. Abby Carreon MD Admit Provider Active Start: May 09, 2025 Dr. Abby Carreon MD Attending Provider Active Start: May 09, 2025 Dr. Abby Carreon MD Other Provider Active Start: May 09, 2025 Team Status: Active Member Role/Relationship Status Dates Rachel Bryant OR NURSE MANAGER-C Primary Care Provider Active Start: May 10, 2025 Dr. Abby Carreon MD Admit Provider Active Start: May 10, 2025 Dr. Abby Carreon MD Attending Provider Active Start: May 10, 2025 Dr. Abby Carreon MD Other Provider Active Start: May 10, 2025 Team Status: Active Member Role/Relationship Status Dates Rachel Manny , OR NURSE MANAGER-C Primary Care Provider Active Start: May 11, 2025 Dr. Abby Carreon MD Admit Provider Active Start: May 11, 2025 Dr. Abby Carreon MD Other Provider Active Start: May 11, 2025 Narcisa Luciano CNM Attending Provider Active Start: May 11, 2025 Team Status: Inactive Member Role/Relationship Status Dates Rachel Bryant , OR NURSE MANAGER-C Primary Care Provider Active Start: May 20, 2025 End: May 20, 2025 Rachel Bryant OR NURSE MANAGER-C Referring Provider Active Start: May 20, 2025 End: May 20, 2025 Dr. Tiffanie Lepe , DO Attending Provider Activ e Start: May 20, 2025 End: May 20, 2025 Team Status: Inactive Member Role/Relationship Status Dates Rachel Bryant , OR NURSE MANAGER-C Primary Care Provider Active Start: February 24, 2025 End: February 24, 2025 Rachel Bryant OR NURSE MANAGER-C Referring Provider Active Start: February 24, 2025 End: February 24, 2025 Antony Correa OR NURSE MANAGER, OR NURSE MANAGER-C Attending Provider Active Start: February 24, 2025 End: February 24, 2025 Team Status: Inactive Member Role/Relationship Status Dates Rachel Bryant OR NURSE MANAGER-C Primary Care Provider Active Start: February 24, 2025 End: February 24, 2025 Joyce Bolanos CNM Attending Provider Active S tart: February 24, 2025 End: February 24, 2025 Team Status: Inactive Member Role/Relationship Status Dates Rachel Bryant OR NURSE MANAGER-C Primary Care Provider Active Start: March 12, 2025 End: March 12, 2025 Rachel Bryant OR NURSE MANAGER-C Referring Provider Active Start: March 12, 2025 End: March 12, 2025 Dr. Tiffanie Lepe , Attending Provider Activ e Start: March 12, 2025 End: March 12, 2025 Team Status: Inactive Member Role/Relationship Status Dates Rachel Bryant OR NURSE MANAGER-C Primary Care Provider Active Start: March 28, 2025 End: March 28, 2025 Antony Correa NP, OR NURSE MANAGER-C Attending Provider Active Start: March 28, 2025 End: March 28, 2025 Antony Correa OR NURSE MANAGER, OR NURSE MANAGER-C Referring Provider Active Start: March 28, 2025 End: March 28, 2025 Team Status: Inactive Member Role/Relationship Status Dates Rachel Bryant , OR NURSE MANAGER-C Primary Care Provider Active Start: March 28, 2025 End: March 28, 2025 Rachel Bryant OR NURSE MANAGER-C Referring Provider Active Start: March 28, 2025 End: March 28, 2025 Joyce Bolanos CNM Attending Provider Active S tart: March 28, 2025 End: March 28, 2025 Team Status: Inactive Member Role/Relationship Status Dates Rachel Bryant OR NURSE MANAGER-C Primary Care Provider Active Start: March 31, 2025 End: March 31, 2025 Rachel Bryant OR NURSE MANAGER-C Referring Provider Active Start: March 31, 2025 End: March 31, 2025 Antony Correa NP, OR NURSE MANAGER-C Attending Provider Active Start: March 31, 2025 End: March 31, 2025 Team Status: Inactive Member Role/Relationship Status Dates Rachel Bryant OR NURSE MANAGER-C Primary Care Provider Active Start: April 08, 2025 End: April 08, 2025 Rachel Bryant OR NURSE MANAGER-C Referring Provider Active Start: April 08, 2025 End: April 08, 2025 Dr. Tiffanie Lepe DO Attending Provider Activ e Start: April 08, 2025 End: April 08, 2025 Team Status: Inactive Member Role/Relationship Status Dates Rachel Bryant OR NURSE MANAGER-C Primary Care Provider Active Start: April 08, 2025 End: April 08, 2025 Dr. Tiffanie Lepe DO Attending Provider Activ e Start: April 08, 2025 End: April 08, 2025 Dr. Tiffanie Lepe DO Referring Provider Activ e Start: April 08, 2025 End: April 08, 2025 Team Status: Inactive Member Role/Relationship Status Dates Rachel Bryant , OR NURSE MANAGER-C Primary Care Provider Active Start: April 14, 2025 End: April 14, 2025 Rachel Bryant OR NURSE MANAGER-C Referring Provider Active Start: April 14, 2025 End: April 14, 2025 Dr. Tiffanie Lepe DO Attending Provider Activ e Start: April 14, 2025 End: April 14, 2025 Team Status: Inactive Member Role/Relationship Status Dates Rachel rByant , OR NURSE MANAGER-C Primary Care Provider Active Start: April 21, 2025 End: April 21, 2025 Rachel Bryant NP-C Referring Provider Active Start: April 21, 2025 End: April 21, 2025 Joyce Bolanos CNM Attending Provider Active S tart: April 21, 2025 End: April 21, 2025 Team Status: Inactive Member Role/Relationship Status Dates Rachel Bryant NP-C Primary Care Provider Active Start: April 21, 2025 End: April 21, 2025 Joyce Bolanos CNM Attending Provider Active S tart: April 21, 2025 End: April 21, 2025 Joyce Bolanos CNM Referring Provider Active S tart: April 21, 2025 End: April 21, 2025 Team Status: Active Member Role/Relationship Status Dates Rachel Bryant OR NURSE MANAGER-C Primary Care Provider Active Start: April 21, 2025 Joyce Bolanos CNM Attending Provider Active S tart: April 21, 2025 Joyce Bolanos CNM Referring Provider Active S tart: April 21, 2025 Joyce Bolanos CNM Other Provider Active Start : April 21, 2025 Team Status: Inactive Member Role/Relationship Status Dates Rachel Bryant OR NURSE MANAGER-C Primary Care Provider Active Start: April 28, 2025 End: April 28, 2025 Rachel Bryant NP-C Referring Provider Active Start: April 28, 2025 End: April 28, 2025 Joyce Bolanos CNM Attending Provider Active S tart: April 28, 2025 End: April 28, 2025 Team Status: Inactive Member Role/Relationship Status Dates Rachel Bryant NP-C Primary Care Provider Active Start: April 28, 2025 End: April 28, 2025 Joyce Bolanos CNM Attending Provider Active S tart: April 28, 2025 End: April 28, 2025 Joyce Bolanos CNM Referring Provider Active S tart: April 28, 2025 End: April 28, 2025 Team Status: Inactive Member Role/Relationship Status Dates Rachel Bryant OR NURSE MANAGER-C Primary Care Provider Active Start: April 29, 2025 End: April 29, 2025 Antony Correa OR NURSE MANAGER, OR NURSE MANAGER-C Attending Provider Active Start: April 29, 2025 End: April 29, 2025 Antony Correa NP, OR NURSE MANAGER-C Referring Provider Active Start: April 29, 2025 End: April 29, 2025 Team Status: Inactive Member Role/Relationship Status Dates Rachel Manny , OR NURSE MANAGER-C Primary Care Provider Active Start: May 05, 2025 End: May 05, 2025 Rachel Bryant OR NURSE MANAGER-C Referring Provider Active Start: May 05, 2025 End: May 05, 2025 Dr. Tiffanie Lepe DO Attending Provider Activ e Start: May 05, 2025 End: May 05, 2025 Team Status: Inactive Member Role/Relationship Status Dates Rachel Bryant , OR NURSE MANAGER-C Primary Care Provider Active Start: May 05, 2025 End: May 05, 2025 Dr. Tiffanie Lepe DO Attending Provider Activ e Start: May 05, 2025 End: May 05, 2025 Team Status: Inactive Member Role/Relationship Status Dates Rachel Bryant , OR NURSE MANAGER-C Primary Care Provider Active Start: May 09, 2025 End: May 11, 2025 Dr. Abby Carreon MD Admit Provider Active Start: May 09, 2025 End: May 11, 2025 Dr. Abby Carreon MD Attending Provider Active Start: May 09, 2025 End: May 11, 2025 Team Status: Active Member Role/Relationship Status Dates Rachel Bryant OR NURSE MANAGER-C Primary Care Provider Active Start: May 09, 2025 Dr. Abby Carreon MD Admit Provider Active Start: May 09, 2025 Dr. Abby Carreon MD Attending Provider Active Start: May 09, 2025 Dr. Abby Carreon MD Other Provider Active Start: May 09, 2025 Team Status: Active Member Role/Relationship Status Dates Rachel Bryant OR NURSE MANAGER-C Primary Care Provider Active Start: May 10, 2025 Dr. Abby Carreon MD Admit Provider Active Start: May 10, 2025 Dr. Abby Carreon MD Attending Provider Active Start: May 10, 2025 Dr. Abby Carreon MD Other Provider Active Start: May 10, 2025 Team Status: Active Member Role/Relationship Status Dates Rachel Bryant , OR NURSE MANAGER-C Primary Care Provider Active Start: May 11, 2025 Dr. Abby Carreon MD Admit Provider Active Start: May 11, 2025 Dr. Abby Carreon MD Other Provider Active Start: May 11, 2025 Narcisa Luciano CNM Attending Provider Active Start: May 11, 2025 Team Status: Inactive Member Role/Relationship Status Dates Rachel Bryant OR NURSE MANAGER-C Primary Care Provider Active Start: May 20, 2025 End: May 20, 2025 Rachel Bryant OR NURSE MANAGER-C Referring Provider Active Start: May 20, 2025 End: May 20, 2025 Dr. Tiffanie Lepe DO Attending Provider Activ e Start: May 20, 2025 End: May 20, 2025 Team Status: Inactive Member Role/Relationship Status Dates Rachel Bryant OR NURSE MANAGER-C Primary Care Provider Active Start: June 19, 2025 End: June 19, 2025 Rachel Bryant OR NURSE MANAGER-C Referring Provider Active Start: June 19, 2025 End: June 19, 2025 Joyce Bolanos CNM Attending Provider Active S tart: June 19, 2025 End: June 19, 2025 Team Status: Active Member Role/Relationship Status Dates Rachel Bryant OR NURSE MANAGER-C Primary care physician Active Team Status: Inactive Member Role/Relationship Status Dates Rachel Bryant OR NURSE MANAGER-C Primary care physician Active Start: March 28, 2025 End: March 28, 2025 Antony Correa NP, OR NURSE MANAGER-C Attending physician Active Start: March 28, 2025 End: March 28, 2025 Antony Correa NP, OR NURSE MANAGER-C Referring Provider Active Start: March 28, 2025 End: March 28, 2025 Team Status: Inactive Member Role/Relationship Status Dates Rachel Bryant NP-C Primary care physician Active Start: March 28, 2025 End: March 28, 2025 Rachel Bryant OR NURSE MANAGER-C Referring Provider Active Start: March 28, 2025 End: March 28, 2025 Joyce Bolanos CNM Attending physician Active Start: March 28, 2025 End: March 28, 2025 Team Status: Inactive Member Role/Relationship Status Dates Rachel Bryant OR NURSE MANAGER-C Primary care physician Active Start: March 31, 2025 End: March 31, 2025 Rachel Bryant OR NURSE MANAGER-C Referring Provider Active Start: March 31, 2025 End: March 31, 2025 Antony Correa NP, OR NURSE MANAGER-C Attending physician Active Start: March 31, 2025 End: March 31, 2025 Team Status: Inactive Member Role/Relationship Status Dates Rachel Bryant NP-C Primary care physician Active Start: April 08, 2025 End: April 08, 2025 Rachel Bryant OR NURSE MANAGER-C Referring Provider Active Start: April 08, 2025 End: April 08, 2025 Dr. Tiffanie Lepe DO Attending physician Acti ve Start: April 08, 2025 End: April 08, 2025 Team Status: Inactive Member Role/Relationship Status Dates Rachel Bryant OR NURSE MANAGER-C Primary care physician Active Start: April 08, 2025 End: April 08, 2025 Dr. Tiffanie Lepe DO Attending physician Acti ve Start: April 08, 2025 End: April 08, 2025 Dr. Tiffanie Lepe DO Referring Provider Activ e Start: April 08, 2025 End: April 08, 2025 Team Status: Inactive Member Role/Relationship Status Dates Rachel Bryant OR NURSE MANAGER-C Primary care physician Active Start: April 14, 2025 End: April 14, 2025 Rachel Bryant OR NURSE MANAGER-C Referring Provider Active Start: April 14, 2025 End: April 14, 2025 Dr. Tiffanie Lepe DO Attending physician Acti ve Start: April 14, 2025 End: April 14, 2025 Team Status: Inactive Member Role/Relationship Status Dates Rachel Bryant OR NURSE MANAGER-C Primary care physician Active Start: April 21, 2025 End: April 21, 2025 Rachel Bryant OR NURSE MANAGER-C Referring Provider Active Start: April 21, 2025 End: April 21, 2025 Joyce Bolanos CNM Attending physician Active Start: April 21, 2025 End: April 21, 2025 Team Status: Inactive Member Role/Relationship Status Dates Rachel Bryant NP-C Primary care physician Active Start: April 21, 2025 End: April 21, 2025 Joyce Bolanos CNM Attending physician Active Start: April 21, 2025 End: April 21, 2025 Joyce Bolanos CNM Referring Provider Active S tart: April 21, 2025 End: April 21, 2025 Team Status: Active Member Role/Relationship Status Dates Rachel Bryant OR NURSE MANAGER-C Primary care physician Active Start: April 21, 2025 Joyce Bolanos CNM Attending physician Active Start: April 21, 2025 Joyce Bolanos CNM Referring Provider Active S tart: April 21, 2025 Joyce Bolanos CNM Nurse Practitioner Active S tart: April 21, 2025 Team Status: Inactive Member Role/Relationship Status Dates Rachel Bryant OR NURSE MANAGER-C Primary care physician Active Start: April 28, 2025 End: April 28, 2025 Rachel Bryant OR NURSE MANAGER-C Referring Provider Active Start: April 28, 2025 End: April 28, 2025 Joyce Bolanos CNM Attending physician Active Start: April 28, 2025 End: April 28, 2025 Team Status: Inactive Member Role/Relationship Status Dates Rachel Bryant OR NURSE MANAGER-C Primary care physician Active Start: April 28, 2025 End: April 28, 2025 Joyce Bolanos CNM Attending physician Active Start: April 28, 2025 End: April 28, 2025 Joyce Bolanos CNM Referring Provider Active S tart: April 28, 2025 End: April 28, 2025 Team Status: Inactive Member Role/Relationship Status Dates Rachel Bryant OR NURSE MANAGER-C Primary care physician Active Start: April 29, 2025 End: April 29, 2025 Antony Correa OR NURSE MANAGER, OR NURSE MANAGER-C Attending physician Active Start: April 29, 2025 End: April 29, 2025 Antony Correa OR NURSE MANAGER, OR NURSE MANAGER-C Referring Provider Active Start: April 29, 2025 End: April 29, 2025 Team Status: Inactive Member Role/Relationship Status Dates Rachel Bryant OR NURSE MANAGER-C Primary care physician Active Start: May 05, 2025 End: May 05, 2025 Rachel Bryant OR NURSE MANAGER-C Referring Provider Active Start: May 05, 2025 End: May 05, 2025 Dr. Tiffanie Lepe DO Attending physician Acti ve Start: May 05, 2025 End: May 05, 2025 Team Status: Inactive Member Role/Relationship Status Dates Rachel Bryant OR NURSE MANAGER-C Primary care physician Active Start: May 05, 2025 End: May 05, 2025 Dr. Tiffanie Lepe DO Attending physician Acti ve Start: May 05, 2025 End: May 05, 2025 Team Status: Inactive Member Role/Relationship Status Dates Rachel Bryant , OR NURSE MANAGER-C Primary care physician Active Start: May 09, 2025 End: May 11, 2025 Dr. Abby Carreon MD Admitting physician Active Start: May 09, 2025 End: May 11, 2025 Dr. Abby Carreon MD Attending physician Active Start: May 09, 2025 End: May 11, 2025 Team Status: Active Member Role/Relationship Status Dates Rachel Bryant OR NURSE MANAGER-C Primary care physician Active Start: May 09, 2025 Dr. Abby Carreon MD Admitting physician Active Start: May 09, 2025 Dr. Abby Carreon MD Attending physician Active Start: May 09, 2025 Dr. Abby Carreon MD Nurse Practitioner Active Start: May 09, 2025 Team Status: Active Member Role/Relationship Status Dates Rachel Bryant OR NURSE MANAGER-C Primary care physician Active Start: May 10, 2025 Dr. Abby Carreon MD Admitting physician Active Start: May 10, 2025 Dr. Abby Carreon MD Attending physician Active Start: May 10, 2025 Dr. Abby Carreon MD Nurse Practitioner Active Start: May 10, 2025 Team Status: Active Member Role/Relationship Status Dates Rachel Bryant OR NURSE MANAGER-C Primary care physician Active Start: May 11, 2025 Dr. Abby Carreon MD Admitting physician Active Start: May 11, 2025 Dr. Abby Carreon MD Nurse Practitioner Active Start: May 11, 2025 Narcisa Luciano CNM Attending physician Active Start: May 11, 2025 Team Status: Inactive Member Role/Relationship Status Dates Rachel Bryant OR NURSE MANAGER-C Primary care physician Active Start: May 20, 2025 End: May 20, 2025 Rachel Bryant OR NURSE MANAGER-C Referring Provider Active Start: May 20, 2025 End: May 20, 2025 Dr. Tiffanie Lepe DO Attending physician Acti ve Start: May 20, 2025 End: May 20, 2025 Team Status: Inactive Member Role/Relationship Status Dates Rachel Bryant , OR NURSE MANAGER-C Primary care physician Active Start: June 19, 2025 End: June 19, 2025 Rachel Bryant OR NURSE MANAGER-C Referring Provider Active Start: June 19, 2025 End: June 19, 2025 Joyce Bolanos CNM Attending physician Active Start: June 19, 2025 End: June 19, 2025 Team Status: Inactive Member Role/Relationship Status Dates DAI Bledsoe Primary care physician Active Start: July 17, 2025 End: July 17, 2025 DAI Bledsoe Referring Provider Active Start: July 17, 2025 End: July 17, 2025 Joyce Bolanos CNM Attending physician Active Start: July 17, 2025 End: July 17, 2025 FOR RECORDS PERTAINING TO PATIENTS WHO ARE OR HAVE BEEN ENROLLED IN A CHEMICAL DEPENDENCY/SUBSTANCEABUSE PROGRAM, SOME INFORMATION MAY BE OMITTED. This clinical summary was aggregated from multiple sources. Caution should be exercised in using it in the provision of clinical care. This summary normalizes information from multiple sources, and as a consequence, information in this document may materially change the coding, format and clinical context of patient data. In addition, data may be omitted in some cases. CLINICAL DECISIONS SHOULD BE BASED ON THE PRIMARY CLINICAL RECORDS. [facility]. provides no warranty or guarantee of the accuracy or completeness of information in this document.
[2025-09-19 09:44] LABS: AST(SGOT) 18 U/L (<=31); Alanine Aminotransfer ALT/SGPT 14 U/L (<=34); Albumin, Serum 4.5 g/dL (3.5-5.0); Alkaline Phosphatase 67 U/L (35-104); Anion Gap 11 (5-15); BUN 11 mg/dL (4-19); BUN/Creat Ratio 11.6 RATIO (10-20); Calcium,Total 9.5 mg/dL (7.6-11.0); Carbon Dioxide 25.5 mmol/L (21.0-32.0); Chloride 104 mmol/L (98-108); Globulin 2.5 g/dL (2.2-4.2); Glucose 105 mg/dL (70-99); Potassium 4.1 mmol/L (3.3-5.1); Vitamin D,25 Hydroxy 52.0 ng/mL (30-100)
[2025-09-19 12:38] LABS: Cholesterol 191 mg/dL (<=200); Low Density Lipoprotein Calc. 129 mg/dL; Triglycerides 54 mg/dL; Very Low Density Lipoprotein 11 mg/dL (5-40); cholesterol:hdl ratio screen 3.67
== END | disposition home or self-care (01) ==
LOC: LAB 08:55
PROVIDERS: PCP Nurse Practitioner Family; Referring Provider Nurse Practitioner Family; Visit Provider Nurse Practitioner Family
DX: E78.00 Pure hypercholesterolemia, unspecified (principal); I10 Essential (primary) hypertension; L60.8 Other nail disorders
CPT/HCPCS: 36415; 80053; 80061; 82306; 85025